=== PATIENT | male | born 1960 | race African-American/Black ===

== ENCOUNTER 2016-09-08 10:59 | Emergency (ER) | payer OTHER ==
[2016-09-08 11:35] VITALS: BMI 20.5
--- NOTE | 2016-09-08 12:25 | PDOC ---
History of Present Illness - General Chief Complaint: Pain Stated Complaint: LOWER BACK PAIN Time Seen by Provider: 09/08/16 12:07 History Source: Patient Exam Limitations: No Limitations - History of Present Illness Initial Comments: CHIEF COMPLAINT: 56 y/o afebrile male with PMH ESRD on HD (/), HTN, COPD , MRSA enocarditis s/p biologic MVR/AVR, liver disease with recurrent ascites, untreated Hep C, chronic systolic and diastolic HF c/o lower back pain for the past 2 days. HISTORY OF PRESENT ILLNESS: The patient states that he woke up 2 days ago with low back pain. He denies fall, trauma to back, f/c, n/v/d, CP, SOB, abd pain, hematuria, dysuria. The patient is on home O2 and is requesting O2 while in the ER. Vital signs on arrival are within normal limits. REVIEW OF SYSTEMS: GENERAL/CONSTITUTIONAL: No fever/chills. No weakness. No weight change. HEAD, EYES, EARS, NOSE AND THROAT: No change in vision. No ear pain or discharge. No sore throat. CARDIOVASCULAR: No chest pain or shortness of breath. RESPIRATORY: No cough, wheezing, or hemoptysis. GASTROINTESTINAL: No abd pain, nausea, vomiting, diarrhea. GENITOURINARY: No dysuria, frequency, or change in urination. MUSCULOSKELETAL: No joint or muscle swelling or pain. No neck pain. +low back pain. SKIN: No rash or easy bruising. NEUROLOGIC: No headache, vertigo, loss of consciousness, or loss of sensation. PHYSICAL EXAM: GENERAL: The patient is awake, alert, and fully oriented, in no acute distress. HEAD: Normal with no signs of trauma. ENT: Pupils equal, round and reactive to light, extraocular movements intact, sclera anicteric, conjunctiva clear. Neck supple. LUNGS: Clear to auscultation bilaterally. Normal excursion. No respiratory distress or use of accessory muscles. CV: RRR, S1/S2, no MRG. Cap refill < 2 sec. ABDOMEN: Soft, non-distended, non-tender even to deep palpation, no hepatomegaly or splenomegaly, no masses. BACK: No midline lumbar or thoracic spine TTP. +TTP of right lumbar paravertebral muscles. EXTREMITIES: Normal range of motion, no edema. NEUROLOGICAL: Normal speech, normal gait. CN II-XII grossly intact. PSYCH: Normal mood, normal affect. SKIN: Warm, dry, normal turgor, no rashes or lesions noted. Past History - Past Medical History Allergies/Adverse Reactions: Allergies Allergy/AdvReac Type Severity Reaction Status Date / Time No Known Drug Allergies Allergy Verified 09/08/16 11:35 Home Medications: Ambulatory Orders Tamsulosin HCl 0.4 mg PO DAILY 03/21/15 Calcium Acetate [Phoslo -] 667 mg PO TIDCM 09/19/15 Folic Acid 1 mg PO DAILY 09/19/15 Multivitamin [Poly-Vitamin] 1 tab PO DAILY 09/19/15 Nifedipine [Procardia Xl] 60 mg PO BID 09/19/15 Sevelamer Carbonate [Renvela -] 800 mg NR TID 09/19/15 Cinacalcet HCl [Sensipar -] 60 mg PO DAILY #30 tab 09/22/15 Isosorbide Mononitrate [Imdur -] 30 mg PO DAILY #30 tab.sr.24h 09/22/15 Losartan Potassium 50 mg PO DAILY #0 10/14/15 Hydralazine HCl [Apresoline -] 50 mg PO TID #90 tablet 07/08/16 Ketoconozole 2% Cream [Nizoral 2% Cream -] 1 applic TP DAILY #1 tube 07/08/16 Pantoprazole Sodium [Protonix -] 40 mg PO DAILY #30 tablet.ec 07/08/16 Oxycodone HCl/Acetaminophen [Percocet 10-325 mg Tablet] 1 each PO TID PRN #30 tablet MDD 3 07/16/16 Oxycodone HCl/Acetaminophen [Percocet 10-325 mg Tablet] 1 each PO TID PRN #80 tablet MDD 3 08/13/16 Cyclobenzaprine HCl [Flexeril -] 10 mg PO TID PRN #90 tablet MDD 3 08/14/16 Oxycodone HCl/Acetaminophen [Percocet 5-325 mg Tablet] 1 tab PO TID #6 tablet MDD 3 09/08/16 Anemia: Yes Asthma: Yes Cancer: No Cardiac Disorders: No CVA: No COPD: No CHF: No Dementia: No Diabetes: No Dialysis: Yes () GI Disorders: No Disorders: Yes (ENLARGED PROSTATE) HTN: Yes Hypercholesterolemia: Yes Liver Disease: No Suicide Attempt (Hx): No Seizures: No Thyroid Disease: No - Surgical History Abdominal Surgery: No Appendectomy: No Cardiac Surgery: Yes (2 VALVES REPLACED 04/2015) Cholecystectomy: No Lung Surgery: Yes (h/o MRSA pleural tissue) - Immunization History Immunization Up to Date: No - Psycho/Social/Smoking Cessation Hx Anxiety: Yes Suicidal Ideation: No Smoking Status: Yes Smoking History: Current every day smoker Have you smoked in the past 12 months: Yes Number of Cigarettes Smoked Daily: 3 Information on smoking cessation initiated: No 'Breaking Loose' booklet given: 07/03/16 Hx Alcohol Use: No Drug/Substance Use Hx: Yes Substance Use Type: Cocaine, Marijuana Hx Substance Use Treatment: Yes (rehab, detox) *Physical Exam - Vital Signs Last Vital Signs Temp Pulse Resp BP Pulse Ox 99.1 F 95 H 18 136/77 97 09/08/16 11:29 09/08/16 11:29 09/08/16 11:29 09/08/16 11:29 09/08/16 11:29 Medical Decision Making - Medical Decision Making A/P: 56 y/o male with LBP for the past 2 days. plan is as follows: 1. O2 via nasal canula 2. PO Percocet The patient states he feels much better. Will discharge to home with rx for #6 percocet. Suggested he take if absolutely needed for pain and f/u with his pcp within 1 week. Instructed him to return to the ER with any worsening or concerning symptoms. The patient verbalizes understanding of all instructions, has no further questions and is awaiting discharge. *DC/Admit/Observation/Transfer Diagnosis at time of Disposition: Low back pain Qualifiers: Chronicity: acute Back pain laterality: right Sciatica presence: without sciatica Qualified Code(s): M54.5 - Low back pain - Discharge Dispostion Disposition: HOME Condition at time of disposition: Improved - Referrals Referrals: Johanna Gann MD [Primary Care Provider] - Call tomorrow - Patient Instructions Printed Discharge Instructions: DI for Low Back Pain Additional Instructions: Discharge Instructions: -Take medication as prescribed for pain if needed; may cause drowsiness -Follow up with your doctor this week -Return to the ER with any worsening or concerning symptoms
[2016-09-08] MEDS ORDERED: ACETAMINOPHEN 325 MG TABLET (FP) PO ONE (12:35)
[2016-09-08] MEDS ORDERED: OXYCODONE/APAP 5/325MG COMBO TABLET PO ONE (12:36)
[2016-09-08] MEDS ORDERED: OXYCODONE/APAP 5/325MG COMBO TABLET ONE (12:41)
[2016-09-08 14:53] VITALS: BP 124/70; PULSE 87; TEMP 98.3
== END 2016-09-08 14:53 | disposition home or self-care (01) ==
LOC: JER 10:59
DX: M54.5 Low back pain (principal); I13.2 Hypertensive heart and chronic kidney disease with heart failure and with stage 5 chronic kidney disease, or end stage renal disease; N18.6 End stage renal disease; I50.42 Chronic combined systolic (congestive) and diastolic (congestive) heart failure; N17.8 Other acute kidney failure; Z99.2 Dependence on renal dialysis; B18.2 Chronic viral hepatitis C; Z95.4 Presence of other heart-valve replacement; E78.00 Pure hypercholesterolemia, unspecified; D64.9 Anemia, unspecified; J45.909 Unspecified asthma, uncomplicated
CPT/HCPCS: 99283-25

== ENCOUNTER 2016-09-11 11:12 | Observation (INO) | payer OTHER ==
--- NOTE | 2016-09-11 12:27 | PDOC ---
History of Present Illness - General Chief Complaint: Shortness of Breath Stated Complaint: Shortness of Breath Time Seen by Provider: 09/11/16 11:29 History Source: Patient Exam Limitations: No Limitations - History of Present Illness Initial Comments: 09/11/16 12:08 56-year-old male presents to the ED with worsening shortness of breath since yesterday. Patient states has home oxygen at home which was not improving his symptoms so decided to call EMS for further evaluation. Patient states was here recently and was discharged home for the same a few days ago. Patient states receives dialysis Thursday and Thursday but did not call today to to shortness of breath. Patient states also been having low back pain worsened with movement over the past week. Patient denies calf tenderness, lower extremity edema, orthopnea, chest pain, fever, cough, or palpitations. patient does state history of anemia, hepatitis, endocarditis, BPH, hypertension, dyslipidemia, and asthma. Timing/Duration: reports: getting worse Severity: reports: moderate Possible Cause: Yes: occasional episodes Modifying Factors: improves with: activity Associated Symptoms: reports: shortness of breath. denies: fever/chills, headache, sore throat Past History - Past Medical History Allergies/Adverse Reactions: Allergies Allergy/AdvReac Type Severity Reaction Status Date / Time No Known Drug Allergies Allergy Verified 09/08/16 11:35 Home Medications: Ambulatory Orders Calcium Acetate 667 mg PO TID 09/11/16 Cinacalcet HCl [Sensipar] 30 mg PO DAILY 09/11/16 Folic Acid 1 mg PO DAILY 09/11/16 Gabapentin 100 mg PO DAILY 09/11/16 Hydralazine HCl 100 mg PO TID 09/11/16 Labetalol HCl [Normodyne -] 200 mg PO BID 09/11/16 Nifedipine [Nifedical Xl] 60 mg PO HS 09/11/16 Oxycodone HCl/Acetaminophen [Percocet 10-325 mg Tablet] 1 each PO Q4H 09/11/16 Sevelamer Carbonate [Renvela] 800 mg PO DAILY 09/11/16 Tamsulosin HCl [Flomax] 0.4 mg PO DAILY 09/11/16 Anemia: Yes Asthma: Yes Cancer: No Cardiac Disorders: No CVA: No COPD: No CHF: No Dementia: No Diabetes: No Dialysis: Yes ([facility]) GI Disorders: No Disorders: Yes (ENLARGED PROSTATE) HTN: Yes Hypercholesterolemia: Yes Liver Disease: No Suicide Attempt (Hx): No Seizures: No Thyroid Disease: No - Surgical History Abdominal Surgery: No Appendectomy: No Cardiac Surgery: Yes (2 VALVES REPLACED 04/2015) Cholecystectomy: No Lung Surgery: Yes (h/o MRSA pleural tissue) - Immunization History Immunization Up to Date: No - Psycho/Social/Smoking Cessation Hx Anxiety: Yes Suicidal Ideation: No Smoking Status: Yes Smoking History: Current every day smoker Have you smoked in the past 12 months: Yes Number of Cigarettes Smoked Daily: 2 Information on smoking cessation initiated: No 'Breaking Loose' booklet given: 07/03/16 Hx Alcohol Use: No Drug/Substance Use Hx: No Substance Use Type: Cocaine, Marijuana Hx Substance Use Treatment: Yes (rehab, detox) Patient Lives Alone: No Lives with/in: spouse/SO Review of Systems - Review of Systems Able to Perform ROS?: Yes Constitutional: No: Symptoms Reported HEENTM: No: Symptoms Reported Respiratory: Yes: Shortness of Breath. No: Cough, Wheezing, Hemoptysis Cardiac (ROS): No: Symptoms Reported ABD/GI: No: Symptoms Reported : No: Symptoms Reported Musculoskeletal: Yes: Back Pain (chronic) Integumentary: No: Symptoms Reported Neurological: No: Symptoms reported Endocrine: No: Symptoms Reported Hematologic/Lymphatic: No: Symptoms Reported *Physical Exam - Vital Signs Last Vital Signs Temp Pulse Resp BP Pulse Ox 98.1 F 87 21 120/70 74 L 09/11/16 11:15 09/11/16 11:15 09/11/16 11:15 09/11/16 11:15 09/11/16 11:15 - Physical Exam General Appearance: Yes: Nourished, Appropriately Dressed. No: Apparent Distress HEENT: positive: EOMI, HERLINDA. negative: Pale Conjunctivae Neck: positive: Supple Respiratory/Chest: positive: Lungs Clear, Normal Breath Sounds. negative: Respiratory Distress, Accessory Muscle Use Cardiovascular: positive: Regular Rhythm, Regular Rate. negative: Murmur Vascular Pulses: Dorsalis-Pedis (R): 2+, Doralis-Pedis (L): 2+ Gastrointestinal/Abdominal: positive: Soft. negative: Tenderness Musculoskeletal: negative: CVA Tenderness Extremity: positive: Normal Capillary Refill, Pedal Edema (1+) Integumentary: positive: Normal Color, Warm, Moist Neurologic: positive: Motor Strength 5/5 (moving all extremeties actively) ED Treatment Course - LABORATORY CBC & Chemistry Diagram: 09/11/16 12:20 09/11/16 12:20 - RADIOLOGY Radiology Studies Ordered: Category Date Time Status CHEST X-RAY PORTABLE* [RAD] Stat Radiology 09/11/16 12:09 Ordered Medical Decision Making - Medical Decision Making 09/11/16 12:52 Patient with end Stage renal disease, anemia and asthma presents with increasing shortness of breath without cough, fever, or chest pain. Patient did receive dialysis today and was sent he came to the ER and is also stating he has had low back pain with no relief. Selected Entries 09/11/16 11:15 Pulse Rate 88 Oxygen Flow 4 Rate Selected Entries 09/11/16 11:15 O2 Sat by Pulse 100 Oximetry (%) Oxygen Flow 4 Rate 09/11/16 15:10 Laboratory Tests 06/14/16 07/03/16 07/06/16 11:45 12:00 06:45 WBC Hgb 7.8 L D Hct Neutrophils % D-Dimer ABG pH ABG pCO2 at Pt Temp ABG pO2 at Pt Temp ABG HCO3 ABG O2 Sat (Measured) Sodium Potassium Chloride Carbon Dioxide Anion Gap BUN Creatinine Creat Clearance w eGFR Random Glucose Lactic Acid Calcium Total Bilirubin AST ALT Alkaline Phosphatase Creatine Kinase Creatine Kinase Index CK-MB (CK-2) Troponin I 0.11 H 0.05 H D B-Natriuretic Peptide Total Protein Albumin 07/07/16 07/08/16 09/11/16 06:35 10:15 12:20 WBC 6.0 Hgb 7.5 L 7.7 L 7.8 L Hct 24.7 L Neutrophils % 78.0 D-Dimer ABG pH ABG pCO2 at Pt Temp ABG pO2 at Pt Temp ABG HCO3 ABG O2 Sat (Measured) Sodium Potassium Chloride Carbon Dioxide Anion Gap BUN Creatinine Creat Clearance w eGFR Random Glucose Lactic Acid Calcium Total Bilirubin AST ALT Alkaline Phosphatase Creatine Kinase Creatine Kinase Index CK-MB (CK-2) Troponin I B-Natriuretic Peptide Total Protein Albumin 09/11/16 09/11/16 09/11/16 12:20 12:20 13:30 WBC Hgb Hct Neutrophils % D-Dimer 269 H ABG pH ABG pCO2 at Pt Temp ABG pO2 at Pt Temp ABG HCO3 ABG O2 Sat (Measured) Sodium 139 Potassium 3.7 D Chloride 101 Carbon Dioxide 29 Anion Gap 9 BUN 28 H Creatinine 5.3 H D Creat Clearance w eGFR 11.36 Random Glucose 116 H D Lactic Acid 1.128 Calcium 7.9 L Total Bilirubin 0.4 AST 28 D ALT 21 D Alkaline Phosphatase 131 H Creatine Kinase 341 H D Creatine Kinase Index 1.0 CK-MB (CK-2) 3.417 Troponin I 0.06 H B-Natriuretic Peptide 16430.69 H Total Protein 6.7 Albumin 2.1 L 09/11/16 14:55 WBC Hgb Hct Neutrophils % D-Dimer ABG pH 7.49 H ABG pCO2 at Pt Temp 34.9 L ABG pO2 at Pt Temp 53.8 L D ABG HCO3 26.5 H ABG O2 Sat (Measured) 87.8 L Sodium Potassium Chloride Carbon Dioxide Anion Gap BUN Creatinine Creat Clearance w eGFR Random Glucose Lactic Acid Calcium Total Bilirubin AST ALT Alkaline Phosphatase Creatine Kinase Creatine Kinase Index CK-MB (CK-2) Troponin I B-Natriuretic Peptide Total Protein Albumin Chest x-ray shows cardiomegaly which is increased compared to previous study noted June 2068 bilateral pleural effusions and congestive changes are noted. There is somewhat focal left base density is of infiltrate. Patient will be ordered for 40 mg of Lasix IV. Patient's H&H is at baseline and in regards to the elevated troponin that may be related to demand versus an actual ischemic event 09/11/16 15:[address] Hood Hospitalist and accepted to service. He will consult nephrology, Dr. Mendenhall for dialysis *DC/Admit/Observation/Transfer Diagnosis at time of Disposition: Hypoxia, ESRD on hemodialysis, Low hemoglobin and low hematocrit Low back pain Qualifiers: Chronicity: acute Back pain laterality: bilateral Sciatica presence: without sciatica Qualified Code(s): M54.5 - Low back pain CHF (congestive heart failure), NYHA class II Qualifiers: Congestive heart failure type: unspecified congestive heart failure type Qualified Code(s): I50.9 - Heart failure, unspecified - Discharge Dispostion Admit: Yes
[2016-09-11 12:32] LABS: BASOPHIL 1.1 % (0-2.0); EOSINOPHIL 5.7 % (0-4.5); MCH 29.5 pg (25.7-33.7); MCHC 31.5 g/dl (32.0-35.9); MEAN CELL VOLUME 93.5 fl (80-96); PLATELET COUNT 243 K/MM3 (134-434); RDW 17.1 % (11.9-15.9)
[2016-09-11 13:05] LABS: ALBUMIN 2.1 g/dl (3.4-5.0); CALCIUM 7.9 mg/dL (8.5-10.1)
[2016-09-11 13:23] LABS: BILIRUBIN,TOTAL 0.4 mg/dL (0.2-1.0); CREATININE 5.3 mg/dL (0.7-1.3); TOT PROT 6.7 g/dl (6.4-8.2); TROPONIN I 0.06 ng/ml (0.00-0.05)
[2016-09-11 14:25] LABS: INR 1.36 (0.82-1.09); PROTHROMBIN TIME (PATIENT) 15.1 SEC (9.98-11.88)
[2016-09-11 14:57] LABS: ARTERIAL BLD GAS O2 SATURATION 87.8 % (90-98.9); ARTERIAL BLOOD GAS BASE EXCESS 3.4 meq/l (-2-2); ARTERIAL BLOOD GAS HCO3 26.5 meq/L (22-26); ARTERIAL BLOOD GAS PO2 53.8 mmHg (80-100); ARTERIAL BLOOD GAS pH 7.49 (7.35-7.45); METHEMOGLOBIN 1.4 % (0.4-1.5)
[2016-09-11 14:58] LABS: ALLENS TEST POSITIVE; ART PUNCT SITE RIGHT RADIAL; LPM/O2% 3.5L; PT. ON O2? YES; TYPE OF O2 NASAL
[2016-09-11] MEDS ORDERED: FUROSEMIDE 40 MG/4 ML INJECTABLE VIAL IVPUSH ONE (15:14)
--- NOTE | 2016-09-11 16:46 | PDOC ---
*Physical Exam - Vital Signs Last Vital Signs Temp Pulse Resp BP Pulse Ox 98.1 F 88 21 120/70 100 09/11/16 11:15 09/11/16 11:15 09/11/16 11:15 09/11/16 11:15 09/11/16 11:15 ED Treatment Course - LABORATORY CBC & Chemistry Diagram: 09/12/16 05:35 09/12/16 05:35 - ADDITIONAL ORDERS Additional order review: Laboratory Results 09/11/16 09/11/16 09/11/16 14:55 13:30 12:20 INR D-Dimer Puncture Site Right radial ABG pH 7.49 H ABG pCO2 at Pt Temp 34.9 L ABG pO2 at Pt Temp 53.8 L D ABG HCO3 26.5 H ABG O2 Sat (Measured) 87.8 L ABG O2 Content 8.9 L* ABG Base Excess 3.4 H Ez Test Positive Carboxyhemoglobin 2.3 H Methemoglobin 1.4 O2 Delivery Device Nasal Oxygen Flow Rate 3.5l PEEP 0.0 Sodium Potassium Chloride Carbon Dioxide Anion Gap BUN Creatinine Creat Clearance w eGFR Random Glucose Lactic Acid 1.128 Calcium Total Bilirubin AST ALT Alkaline Phosphatase Creatine Kinase Creatine Kinase Index CK-MB (CK-2) CK-MB (CK-2) Rel Index Cancelled Troponin I B-Natriuretic Peptide Total Protein Albumin Blood Type Antibody Screen 09/11/16 09/11/16 09/11/16 12:20 12:20 12:20 INR 1.36 H D-Dimer 269 H Puncture Site ABG pH ABG pCO2 at Pt Temp ABG pO2 at Pt Temp ABG HCO3 ABG O2 Sat (Measured) ABG O2 Content ABG Base Excess Ez Test Carboxyhemoglobin Methemoglobin O2 Delivery Device Oxygen Flow Rate PEEP Sodium 139 Potassium 3.7 D Chloride 101 Carbon Dioxide 29 Anion Gap 9 BUN 28 H Creatinine 5.3 H D Creat Clearance w eGFR 11.36 Random Glucose 116 H D Lactic Acid Calcium 7.9 L Total Bilirubin 0.4 AST 28 D ALT 21 D Alkaline Phosphatase 131 H Creatine Kinase 341 H D Creatine Kinase Index 1.0 CK-MB (CK-2) 3.417 CK-MB (CK-2) Rel Index Troponin I 0.06 H B-Natriuretic Peptide 13299.69 H Total Protein 6.7 Albumin 2.1 L Blood Type O POSITIVE Antibody Screen Negative 09/11/16 12:20 RBC 2.64 L MCV 93.5 MCHC 31.5 L RDW 17.1 H MPV 9.0 Neutrophils % 78.0 Lymphocytes % 6.6 L D Monocytes % 8.6 Eosinophils % 5.7 H Basophils % 1.1 - Medications Given in the ED: ED Medications Discontinued Medications Generic Name Dose Route Start Last Admin Trade Name Michaelq PRN Reason Stop Dose Admin Furosemide 40 mg 09/11/16 15:14 09/11/16 16:41 Lasix Injection - IVPUSH 09/11/16 15:15 40 mg ONCE ONE Administration Medical Decision Making - Medical Decision Making 09/11/16 16:45 Pt seen by Midlevel Provider under my direct supervision Ancillary studies reviewed I agree with plan as outlined by Midlevel Provider *DC/Admit/Observation/Transfer Diagnosis at time of Disposition: Hypoxia, ESRD on hemodialysis, Low hemoglobin and low hematocrit Low back pain Qualifiers: Chronicity: acute Back pain laterality: bilateral Sciatica presence: without sciatica Qualified Code(s): M54.5 - Low back pain CHF (congestive heart failure), NYHA class II Qualifiers: Congestive heart failure type: unspecified congestive heart failure type Qualified Code(s): I50.9 - Heart failure, unspecified
[2016-09-11] MEDS ORDERED: ACETAMINOPHEN 325 MG TABLET (FP) ONE (16:58)
[2016-09-11] MEDS: ACETAMINOPHEN 325 MG TABLET (FP) PO PRN ×2 (17:07→22:04)
[2016-09-11] MEDS ORDERED: FUROSEMIDE 40 MG/4 ML INJECTABLE VIAL ONE (17:10)
--- NOTE | 2016-09-11 17:15 | HP ---
CHIEF COMPLAINT: I have back pain PCP: Dr. Garza Asian Art Curator: Dr. Elvira Jauregui Human Resources Compliance Manager: Dr. San HISTORY OF PRESENT ILLNESS: 56 yo M with h/o ESRD on HD (Thu/, last HD was today), HTN, COPD, MRSA endocarditis s/p biologic MVR/AVR, severe PHTN, polysubstance abuse, liver disease with recurrent ascites, untreated Hep C, and chronic systolic and diastolic heart failure presented to the ED with worsening chronic lower back pain x 2 days. Patient was seen in the ED 3 days ago for the same reason and was discharged home on percocet. Today, he complains of same pain that is located on his L inferolateral back, non-radiating, "13 out 10" in severity, stabbing like, not relieved by tynelol or NSAIDs, lying on his R makes the pain slightly better. He stated he's been short of breath because it hurts when taking deep breaths, and any positional movement would aggravate the pain. He's taking gabapentin and oxycodone at home but he's never diagnosed with neuropathy. Patient denies focal weakness, numbness/tingling in all extremities , bowel or urinary incontinence, fever, chills, n/v, chest pain, trauma. ER course was notable for: (1) lab values are at baseline (2) CXR not worsening compared to prior (3) Recent Travel: None PAST MEDICAL HISTORY: ESRD on HD (Thu/Thu/Thu), HTN, COPD, MRSA endocarditis s/p biologic MVR/AVR, severe PHTN, polysubstance abuse, liver disease with recurrent ascites, untreated Hep C, and chronic systolic and diastolic heart failure PAST SURGICAL HISTORY: Inguinal hernia repair, umbilical hernia repair, MVR, AVR Social History: Smokin-4 cigarettes daily Alcohol: Denies (previous on detox) Drugs: cocaine and marijuana Family History: Allergies No Known Drug Allergies Allergy (Verified 09/08/16 11:35) HOME MEDICATIONS: Medication Instructions Recorded Calcium Acetate 667 mg PO TID 09/11/16 Cinacalcet HCl [Sensipar] 30 mg PO DAILY 09/11/16 Folic Acid 1 mg PO DAILY 09/11/16 Gabapentin 100 mg PO DAILY 09/11/16 Hydralazine HCl 100 mg PO TID 09/11/16 Labetalol HCl [Normodyne -] 200 mg PO BID 09/11/16 Nifedipine [Nifedical Xl] 60 mg PO HS 09/11/16 Oxycodone HCl/Acetaminophen 1 each PO Q4H 09/11/16 [Percocet 10-325 mg Tablet] Sevelamer Carbonate [Renvela] 800 mg PO DAILY 09/11/16 Tamsulosin HCl [Flomax] 0.4 mg PO DAILY 09/11/16 REVIEW OF SYSTEMS CONSTITUTIONAL: Absent: fever, chills, diaphoresis, generalized weakness, malaise, loss of appetite, weight change HEENT: Absent: rhinorrhea, nasal congestion, throat pain, throat swelling, difficulty swallowing, mouth swelling, ear pain, eye pain, visual changes CARDIOVASCULAR: Absent: chest pain, syncope, palpitations, irregular heart rate, lightheadedness , peripheral edema RESPIRATORY: shortness of breath Absent: cough, dyspnea with exertion, orthopnea, wheezing, stridor, hemoptysis GASTROINTESTINAL: Absent: abdominal pain, abdominal distension, nausea, vomiting, diarrhea, constipation, melena, hematochezia GENITOURINARY: Absent: dysuria, frequency, urgency, hesitancy, hematuria, flank pain, genital pain MUSCULOSKELETAL: back pain Absent: myalgia, arthralgia, joint swelling, neck pain SKIN: Absent: rash, itching, pallor HEMATOLOGIC/IMMUNOLOGIC: Absent: easy bleeding, easy bruising, lymphadenopathy, frequent infections ENDOCRINE: Absent: unexplained weight gain, unexplained weight loss, heat intolerance, cold intolerance NEUROLOGIC: Absent: headache, focal weakness or paresthesias, dizziness, unsteady gait, seizure, mental status changes, bladder or bowel incontinence PSYCHIATRIC: Absent: anxiety, depression, suicidal or homicidal ideation, hallucinations. PHYSICAL EXAMINATION Vital Signs Temperature 98.1 F 09/11/16 11:15 Pulse Rate 88 09/11/16 11:15 Respiratory Rate 21 09/11/16 11:15 Blood Pressure 120/70 09/11/16 11:15 O2 Sat by Pulse Oximetry (%) 100 09/11/16 11:15 GENERAL: Awake, alert, and fully oriented, in pain and mild respiratory distress . HEAD: Normal with no signs of trauma. EYES: Pupils equal, round and reactive to light, extraocular movements intact, sclera anicteric No lid lag. EARS, NOSE, THROAT: Ears normal, nares patent, oropharynx clear without exudates. Moist mucous membranes. NECK: Normal range of motion, supple without lymphadenopathy, JVD, or masses. LUNGS: Breath sounds equal, clear to auscultation bilaterally. No wheezes, and no crackles. No accessory muscle use. HEART: Regular rate and rhythm, normal S1 and S2 without murmur, rub or gallop. ABDOMEN: Soft, diffuse tenderness, not distended, normoactive bowel sounds, no guarding, no rebound, no masses. No hepatomegaly or splenomegaly. MUSCULOSKELETAL: tenderness upon palpation on LL back, limited ROM of the back UPPER EXTREMITIES: 2+ pulses, warm, well-perfused. No cyanosis. No clubbing. Cap refill <2 seconds. L arm AVF with thrill and bruit LOWER EXTREMITIES:no edema PSYCHIATRIC: uncooperative and agitated SKIN: Warm, dry, normal turgor, no rashes or lesions noted. Abnormal Lab Results 09/11/16 09/11/16 09/11/16 12:20 12:20 12:20 RBC 2.64 L Hgb 7.8 L Hct 24.7 L MCHC 31.5 L RDW 17.1 H Lymphocytes % 6.6 L D Eosinophils % 5.7 H INR 1.36 H D-Dimer 269 H ABG pH ABG pCO2 at Pt Temp ABG pO2 at Pt Temp ABG HCO3 ABG O2 Sat (Measured) ABG O2 Content ABG Base Excess Carboxyhemoglobin BUN 28 H Creatinine 5.3 H D Random Glucose 116 H D Calcium 7.9 L Alkaline Phosphatase 131 H Creatine Kinase 341 H D Troponin I 0.06 H B-Natriuretic Peptide 87215.69 H Albumin 2.1 L 09/11/16 14:55 RBC Hgb Hct MCHC RDW Lymphocytes % Eosinophils % INR D-Dimer ABG pH 7.49 H ABG pCO2 at Pt Temp 34.9 L ABG pO2 at Pt Temp 53.8 L D ABG HCO3 26.5 H ABG O2 Sat (Measured) 87.8 L ABG O2 Content 8.9 L* ABG Base Excess 3.4 H Carboxyhemoglobin 2.3 H BUN Creatinine Random Glucose Calcium Alkaline Phosphatase Creatine Kinase Troponin I B-Natriuretic Peptide Albumin Imaging study: CXR: no acute change compared to prior ASSESSMENT/PLAN: 56 yo M admitted to the hospital for dyspnea likely 2/2 uncontrolled lower back pain. Patient's BNP and the rest of lab works are at baseline. His sob is likely due to refractory pain. Less likely CHF exacerbation as his physical exam was unremarkable for signs of systolic or diastolic heart failure. He's also taking oxycodone and gabapentin and he refused to give details on what conditions these meds are for. Dyspea likely 2/2 uncontrolled lower back pain - reproducible - supplemental O2 via NC - percocet for pain - pain management consult ESRD on HD - Thu/Thu/Thu (last HD today) - cont. renvela, sensipar, folic acid, and calcium acetate HTN - cont. labetalol, hydralazine, nifedipine BPH - cont. flomax FEN - No IVF - major lytes are normal - sodium restrict diet Prophylaxis - DVT: heparin - GI: not indicated - deconditioning: early ambulation Dispo: d/c after pain management clears the patient. Visit type - Emergency Visit Emergency Visit: Yes ED Registration Date: 09/11/16 Care time: The patient presented to the Emergency Department on the above date and was hospitalized for further evaluation of their emergent condition. - New Patient This patient is new to me today: Yes Date on this admission: 09/11/16 - Critical Care Critical Care patient: No
--- NOTE | 2016-09-11 17:28 | PN ---
Teaching Attending Note Name of Resident: Panda Arenas ATTENDING PHYSICIAN STATEMENT I saw and evaluated the patient. I reviewed the resident's note and discussed the case with the resident. I agree with the resident's findings and plan as documented. SUBJECTIVE: This is a 56-year-old man with a history of ESRD on HD, HTN, COPD, pulmonary HTN, chronic systolic and diastolic HF, hepatitis C, anemia, MRSA endocarditis, bioprosthetic MV and TV replacements, BPH who comes to the ER complaining of shortness of breath and low back pain. He had been seen in the ER on 09/08 for the same complaints. He was discharged with Percocet. He comes in today complaining of severe low back pain and difficulty taking a deep breath because of the pain. OBJECTIVE: Last Vital Signs Temp Pulse Resp BP Pulse Ox 98.1 F 88 21 120/70 100 09/11/16 11:15 09/11/16 11:15 09/11/16 11:15 09/11/16 11:15 09/11/16 11:15 HEART: S1 S2, RRR LUNGS: Clear ABDOMEN: Soft, (+) mild diffuse tenderness, non-distended, normal BS EXTREMITIES: No edema ASSESSMENT AND PLAN: This is a 56-year-old man with a history of ESRD on HD, HTN, COPD, pulmonary HTN , chronic systolic and diastolic HF, hepatitis C, anemia, MRSA endocarditis, bioprosthetic MV and TV replacements, BPH who presented to the ER with difficulty taking a deep breath because of pain in his back. 1. Shortness of breath secondary to back pain - Place in observation - Pain control 2. Low back pain 3. ESRD on HD - Nephrology consult for HD - Continue Renvela, Sensipar, PhosLo 4. Chronic systolic and diastolic heart failure - Stable 5. Hypertension - Continue Labetalol, Hydralazine, Nifedipine 6. COPD - Stable 7. Pulmonary HTN 8. Anemia secondary to ESRD 9. Hepatitis C 10. History of bioprosthetic MV/TV replacements 11. BPH - Continue Flomax
[2016-09-11] MEDS: HEPARIN NA (PORCINE) 5,000 UNITS/ML 1ML VIAL SQ SCH (18:20)
[2016-09-11] MEDS: CALCIUM ACETATE 667 MG CAPSULE (FP) PO SCH (18:21)
[2016-09-11] MEDS: SEVELAMER CARBONATE 800 MG TAB (FP) PO SCH ×2 (18:22→18:38)
[2016-09-11] MEDS: GABAPENTIN 100 MG CAPSULE (FP) PO SCH ×2 (18:22→18:39)
[2016-09-11] MEDS: CINACALCET HCL 30 MG TAB (FP) PO SCH (18:22)
[2016-09-11] MEDS: FOLIC ACID 1 MG TABLET (FP) PO SCH ×2 (18:26→18:40)
[2016-09-11] MEDS: TAMSULOSIN HCL 0.4 MG CAP.ER.24H (FP) PO SCH (18:38)
[2016-09-11 18:42] VITALS: BMI 19.6
[2016-09-11] MEDS ORDERED: ACETAMINOPHEN 325 MG TABLET (FP) PO PRN (19:18)
[2016-09-11] MEDS ORDERED: LABETALOL HCL 100 MG TABLET (FP) ONE (21:18)
[2016-09-11] MEDS ORDERED: NIFEdipine E.R 60 MG TABLET (UD) PO SCH (22:00)
[2016-09-11] MEDS: hydrALAZINE HCL 50 MG TABLET (FP) PO SCH (22:04)
[2016-09-11] MEDS: LABETALOL HCL 200 MG TABLET (FP) PO SCH (22:04)
[2016-09-11] MEDS: oxyCODONE HCL 5 MG TABLET PO PRN (22:06)
[2016-09-12] MEDS: oxyCODONE HCL 5 MG TABLET PO PRN ×2 (02:28→10:36)
[2016-09-12] MEDS: ACETAMINOPHEN 325 MG TABLET (FP) PO PRN ×2 (02:31→10:38)
[2016-09-12] MEDS: HEPARIN NA (PORCINE) 5,000 UNITS/ML 1ML VIAL SQ SCH ×3 (02:32→10:45)
[2016-09-12] MEDS: hydrALAZINE HCL 50 MG TABLET (FP) PO SCH ×2 (06:18→14:00)
[2016-09-12 06:45] LABS: MAGNESIUM 2.3 mg/dL (1.8-2.4); PHOSPHOROUS 5.9 mg/dL (2.5-4.9)
[2016-09-12 06:50] LABS: MCH 29.2 pg (25.7-33.7); MCHC 31.6 g/dl (32.0-35.9); MEAN CELL VOLUME 92.3 fl (80-96); PLATELET COUNT 223 K/MM3 (134-434); RDW 17.5 % (11.9-15.9); WHITE BLOOD COUNT 5.3 K/mm3 (4.0-10.0)
[2016-09-12] MEDS: SEVELAMER CARBONATE 800 MG TAB (FP) PO SCH (08:30)
[2016-09-12] MEDS ORDERED: LABETALOL HCL 100 MG TABLET (FP) ONE (10:15)
[2016-09-12] MEDS: CALCIUM ACETATE 667 MG CAPSULE (FP) PO SCH ×2 (10:34→12:41)
[2016-09-12] MEDS: GABAPENTIN 100 MG CAPSULE (FP) PO SCH (10:35)
[2016-09-12] MEDS: FOLIC ACID 1 MG TABLET (FP) PO SCH (10:35)
[2016-09-12] MEDS: TAMSULOSIN HCL 0.4 MG CAP.ER.24H (FP) PO SCH (10:35)
[2016-09-12] MEDS: LABETALOL HCL 200 MG TABLET (FP) PO SCH (10:36)
[2016-09-12] MEDS: CINACALCET HCL 30 MG TAB (FP) PO SCH (10:36)
[2016-09-12 10:57] VITALS: PULSE 74
--- NOTE | 2016-09-12 11:15 | PN ---
Physical Exam: SUBJECTIVE: Patient seen and examined at bedside. No acute events overnight, breathing cont. to improv. Denies chest pain, fever, chills, n/v, dysuria. OBJECTIVE: Vital Signs Period Temp Pulse Resp BP Sys/Anderson Pulse Ox Last 24 Hr 97.3 F-98.8 F 63-85 20-22 93-134/54-74 90 GENERAL: The patient is awake, alert, and fully oriented, in no acute distress. HEAD: Normal with no signs of trauma. EYES: PERRL, extraocular movements intact, sclera anicteric, conjunctiva clear. No ptosis. ENT: Ears normal, nares patent, oropharynx clear without exudates, moist mucous membranes. NECK: Trachea midline, full range of motion, supple. LUNGS: Breath sounds equal, clear to auscultation bilaterally, no wheezes, no crackles, no accessory muscle use. HEART: Regular rate and rhythm, S1, S2 without murmur, rub or gallop. ABDOMEN: Soft, nontender, nondistended, normoactive bowel sounds, no guarding, no rebound, no hepatosplenomegaly, no masses. EXTREMITIES: 2+ pulses, warm, well-perfused, no edema. NEUROLOGICAL: Cranial nerves II through XII grossly intact. Normal speech, gait not observed. PSYCH: Normal mood, normal affect. SKIN: Warm, dry, normal turgor, no rashes or lesions noted Laboratory Results - last 24 hr 09/11/16 09/12/16 09/12/16 18:45 01:00 05:35 WBC 5.3 RBC 2.51 L Hgb 7.3 L Hct 23.2 L MCV 92.3 MCHC 31.6 L RDW 17.5 H Plt Count 223 MPV 9.0 Sodium Potassium Chloride Carbon Dioxide Anion Gap BUN Creatinine Random Glucose Calcium Phosphorus Magnesium Troponin I 0.06 H 0.06 H 09/12/16 05:35 WBC RBC Hgb Hct MCV MCHC RDW Plt Count MPV Sodium 139 Potassium 5.1 D Chloride 102 Carbon Dioxide 28 Anion Gap 9 BUN 46 H D Creatinine 7.0 H D Random Glucose 96 Calcium 8.0 L Phosphorus 5.9 H Magnesium 2.3 Troponin I Active Medications Generic Name Dose Route Start Last Admin Trade Name Freq PRN Reason Stop Dose Admin Acetaminophen 650 mg 09/11/16 15:29 09/12/16 10:38 Tylenol - PO 650 mg Q4H PRN Administration FEVER OR PAIN Acetaminophen 325 mg 09/11/16 19:18 Tylenol - PO Q4H PRN Calcium Acetate 667 mg 09/11/16 17:30 09/12/16 10:34 Phoslo - PO Not Given TIDCM MONAE Cinacalcet 30 mg 09/11/16 17:15 09/12/16 10:36 Sensipar - PO 30 mg DAILY MONAE Administration Folic Acid 1 mg 09/11/16 17:15 09/12/16 10:35 Folic Acid - PO 1 mg DAILY MONAE Administration Gabapentin 100 mg 09/11/16 17:15 09/12/16 10:35 Neurontin - PO 100 mg DAILY MONAE Administration Heparin Sodium (Porcine) 5,000 unit 09/11/16 18:00 09/12/16 10:45 Heparin - SQ Not Given Q8H-IV MONAE Hydralazine HCl 100 mg 09/11/16 22:00 09/12/16 06:18 Apresoline - PO Not Given TID MONAE Labetalol HCl 200 mg 09/11/16 22:00 09/12/16 10:36 Normodyne - PO Not Given BID MONAE Nifedipine 60 mg 09/11/16 22:00 09/11/16 22:04 Procardia Xl - PO 60 mg HS MONAE Administration Oxycodone HCl 10 mg 09/11/16 19:18 09/12/16 10:36 Roxicodone - PO 10 mg Q4H PRN Administration Sevelamer Carbonate 800 mg 09/11/16 17:15 09/12/16 08:30 Renvela - PO 800 mg DAILY@0800 MONAE Administration Tamsulosin HCl 0.4 mg 09/11/16 17:15 09/12/16 10:35 Flomax - PO 0.4 mg DAILY MONAE Administration ASSESSMENT/PLAN:
--- NOTE | 2016-09-12 13:46 | PN ---
Teaching Attending Note Name of Resident: Panda Arenas ATTENDING PHYSICIAN STATEMENT I saw and evaluated the patient. I reviewed the resident's note and discussed the case with the resident. I agree with the resident's findings and plan as documented. SUBJECTIVE: seen and evaluated at the bedside OBJECTIVE: tenderness on ribs over left flank ASSESSMENT AND PLAN: 56 yo M with h/o ESRD on HD (Thu/Thu/Thu, last HD was today), HTN, COPD, MRSA endocarditis s/p biologic MVR/AVR, severe PHTN, polysubstance abuse, liver disease with recurrent ascites, untreated Hep C, and chronic systolic and diastolic heart failure admitted for left flank pain -pt states that the pain started after he had severe coughing for 1 week for which he was treated with Abx for community acquired pneumonia -Rib xray shows old fractures of 3 ribs on that side -pt likely aggravated this area with severe coughing -will discharge home; 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
[2016-09-12 14:32] VITALS: BP 100/65; TEMP 97.9
--- NOTE | 2016-09-12 15:58 | CONSULT ---
Consult Consult Specialty:: Neurology Reason for Consultation:: back pain chronic on chronic opioid analgesics with a hx of polysubstance abuse noted in the medical record - History of Present Illness History of Present Illness: 56 yo uncooperative with interview insisting his hospitalization has prevented him from seeing his "pain management" doctor and he insisting I give him a prescription. Re-oriented the patient I am the neurologist called to evaluate. He denies any neurological symptoms including motor weakness, sensory symptoms or speech difficulties. He has been treated and previously evaluated for back pain with established outpatient care. - Past Medical History Cardio/Vascular: Yes: CHF (Chronic diastolic HF, Severe Pulm HTN), HTN, Hyperlipdemia, Mitral Insufficiency (s/p MVR (bio)), Pulmonary Hypertension, Other (Severe Tricuspid regurgitation) Pulmonary: Yes: Other (PHTN) Gastrointestinal: Yes: Ascites, Constipation Renal/: Yes: Renal Failure, Hemodialysis Musculoskeletal: Yes: Bursitis (left shoulder pain) - Past Surgical History Past Surgical History: Yes: AV Fistula/Graft, Hernia Repair (11/19) - Alcohol/Substance Use Hx Alcohol Use: No History of Substance Use: reports: Cocaine (last use 2 weeks ago), Marijuana - Smoking History Smoking history: Current every day smoker Have you smoked in the past 12 months: Yes Aproximately how many cigarettes per day: 2 - Social History ADL: Independent 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 History of Recent Travel: No Home Medications - Allergies Allergies/Adverse Reactions: Allergies Allergy/AdvReac Type Severity Reaction Status Date / Time No Known Drug Allergies Allergy Verified 09/08/16 11:35 - Home Medications Home Medications: Ambulatory Orders Calcium Acetate 667 mg PO TID 09/11/16 Cinacalcet HCl [Sensipar] 30 mg PO DAILY 09/11/16 Folic Acid 1 mg PO DAILY 09/11/16 Gabapentin 100 mg PO DAILY 09/11/16 Hydralazine HCl 100 mg PO TID 09/11/16 Nifedipine [Nifedical Xl] 60 mg PO HS 09/11/16 Oxycodone HCl/Acetaminophen [Percocet 10-325 mg Tablet] 1 each PO Q4H 09/11/16 Sevelamer Carbonate [Renvela -] 800 mg PO DAILY 09/11/16 Tamsulosin HCl [Flomax -] 0.4 mg PO DAILY 09/11/16 Oxycodone HCl/Acetaminophen [Percocet 10-325 mg Tablet] 1 each PO Q6H #30 tablet MDD 4 09/12/16 Family Disease History - Family Disease History Family Disease History: Other: Father ( of kidney failure), Mother (muscle problems), Sister (healthy and living, HTN) Physical Exam Vital Signs: Vital Signs Temperature 97.9 F 09/12/16 14:00 Pulse Rate 74 09/12/16 14:00 Respiratory Rate 20 09/12/16 14:00 Blood Pressure 100/65 09/12/16 14:00 O2 Sat by Pulse Oximetry (%) 90 L 09/11/16 18:30 Constitutional: Yes: No Distress, Other (agitated demanding prescription for "pain meds") HENT: Yes: Atraumatic Neurological: Yes: Alert, Oriented, Cran Nerves II-XII Intact. No: Aphasia, Dysarthria, Loss of Sensation, Weakness Labs: CBC, BMP 09/12/16 05:35 09/12/16 05:35 Assessment/Plan Chronic back pain with established outpatient care by pain management with patient exhibiting drug seeking behavior with hx of polysubstance abuse. Will defer to his established outpatient physician for ongoing evaluation and treatment of chronic pain complaints to avoid prescription drug misuse The patient is neurologically stable for discharge to the care of his regular physicians.
--- NOTE | 2016-09-12 16:24 | DS ---
Physical Exam: SUBJECTIVE: Patient seen and examined at bedside. Pt c/o constant back pain which is now located in L flank. He does not have any other complaint. Denies fever, chills, n/v, bowel or urinary sx. OBJECTIVE: Vital Signs Period Temp Pulse Resp BP Sys/Anderson Pulse Ox Last 24 Hr 97.3 F-98.8 F 63-85 20-22 93-134/54-74 90-94 PHYSICAL EXAM GENERAL: Awake, alert, and fully oriented, in pain and mild respiratory distress. HEAD: Normal with no signs of trauma. EYES: Pupils equal, round and reactive to light, extraocular movements intact, sclera anicteric No lid lag. EARS, NOSE, THROAT: Ears normal, nares patent, oropharynx clear without exudates. Moist mucous membranes. NECK: Normal range of motion, supple without lymphadenopathy, JVD, or masses. LUNGS: Breath sounds equal, clear to auscultation bilaterally. No wheezes, and no crackles. No accessory muscle use. HEART: Regular rate and rhythm, normal S1 and S2 without murmur, rub or gallop. ABDOMEN: Soft, diffuse tenderness, not distended, normoactive bowel sounds, no guarding, no rebound, no masses. No hepatomegaly or splenomegaly. MUSCULOSKELETAL: tenderness upon palpation on LL back, limited ROM of the back UPPER EXTREMITIES: 2+ pulses, warm, well-perfused. No cyanosis. No clubbing. Cap refill <2 seconds. L arm AVF with thrill and bruit LOWER EXTREMITIES:no edema PSYCHIATRIC: uncooperative and agitated SKIN: Warm, dry, normal turgor, no rashes or lesions noted. LABS Laboratory Results - last 24 hr 09/11/16 09/12/16 09/12/16 18:45 01:00 05:35 WBC 5.3 RBC 2.51 L Hgb 7.3 L Hct 23.2 L MCV 92.3 MCHC 31.6 L RDW 17.5 H Plt Count 223 MPV 9.0 Sodium Potassium Chloride Carbon Dioxide Anion Gap BUN Creatinine Random Glucose Calcium Phosphorus Magnesium Troponin I 0.06 H 0.06 H 09/12/16 05:35 WBC RBC Hgb Hct MCV MCHC RDW Plt Count MPV Sodium 139 Potassium 5.1 D Chloride 102 Carbon Dioxide 28 Anion Gap 9 BUN 46 H D Creatinine 7.0 H D Random Glucose 96 Calcium 8.0 L Phosphorus 5.9 H Magnesium 2.3 Troponin I HOSPITAL COURSE: Date of Admission:09/11/16 56 yo M admitted to the hospital for dyspnea likely 2/2 uncontrolled lower back pain. Patient's BNP and the rest of lab works are at baseline. His sob is likely due to refractory lower back pain. Less likely CHF exacerbation as his physical exam was unremarkable for signs of systolic or diastolic heart failure. X-ray of his L chest showed chronic fractures in 8th to 10th ribs. He was treated with supplemental O2 via NC and percocet for pain. He's in stable condition to be discharged home and cont. medical management and pain management as outpatient with Dr. Tucker and Dr. Austin. Patient was explained that he needs to see Dr. Austin for controlled pain medication as soon as he's discharged. He's prescribed 30 tablets of percocets in between discharge and his next appointment with pain management as outpatient. Date of Discharge: 09/12/16 Minutes to complete discharge: 45 Discharge Summary Reason For Visit: HYPOXIA; END STAGE RENAL DISEASE ON DIALYSIS Current Active Problems Low back pain (Acute) CHF (congestive heart failure), NYHA class II (Chronic) ESRD on hemodialysis (Chronic) Hypoxia (Chronic) Low hemoglobin and low hematocrit (Chronic) Ribs, multiple fractures (Chronic) Condition: Stable - Instructions Diet, Activity, Other Instructions: Instruction for continuing care: You have fractures in your L 8th, 9th and 10th ribs. It will take 4-6 weeks to heal. Please avoid strenuous activities and plenty of rest. Please also continue to follow up with Dr. Tucker and Dr. Austin for termite helper pain management. Referrals: Johanna Gann MD [Primary Care Provider] - Kori Austin NP [Nurse Practitioner] - Disposition: HOME - Home Medications Comprehensive Discharge Medication List: Ambulatory Orders Calcium Acetate 667 mg PO TID 09/11/16 Cinacalcet HCl [Sensipar] 30 mg PO DAILY 09/11/16 Folic Acid 1 mg PO DAILY 09/11/16 Gabapentin 100 mg PO DAILY 09/11/16 Hydralazine HCl 100 mg PO TID 09/11/16 Nifedipine [Nifedical Xl] 60 mg PO HS 09/11/16 Oxycodone HCl/Acetaminophen [Percocet 10-325 mg Tablet] 1 each PO Q4H 09/11/16 Sevelamer Carbonate [Renvela -] 800 mg PO DAILY 09/11/16 Tamsulosin HCl [Flomax -] 0.4 mg PO DAILY 09/11/16 Oxycodone HCl/Acetaminophen [Percocet 10-325 mg Tablet] 1 each PO Q6H #30 tablet MDD 4 09/12/16 This patient is new to me today: No Emergency Visit: No Critical Care patient: No - Discharge Referral Referred to [facility] No
== END 2016-09-12 15:34 | disposition home or self-care (01) ==
LOC: JER 11:12 → JERBED 15:22 → UNDOADMOB 15:22 → INTOOBSV 15:22 → J4S 16:20 → JERBED 17:30 → J4S 17:30
PROVIDERS: ADMIT Internal Medicine; ATTEND Internal Medicine
DX: M54.5 Low back pain (principal); I13.2 Hypertensive heart and chronic kidney disease with heart failure and with stage 5 chronic kidney disease, or end stage renal disease; N18.6 End stage renal disease; I50.42 Chronic combined systolic (congestive) and diastolic (congestive) heart failure; Z99.2 Dependence on renal dialysis; F17.210 Nicotine dependence, cigarettes, uncomplicated; J44.9 Chronic obstructive pulmonary disease, unspecified; I27.2 Other secondary pulmonary hypertension; D63.1 Anemia in chronic kidney disease
CPT/HCPCS: 36415; 36600; 71010-TC; 71101-TC; 80048; 80053; 82375; 82550; 82553; 82803; 83050; 83605; 83735; 83880; 84100; 84484; 85025; 85027; 85379; 85610; 86850; 86900; 86901; 87040; 97116-GP; 97163-GP; 99285-25; G0378; J1644

== ENCOUNTER 2016-12-01 08:09 | Inpatient (IN) | payer OTHER ==
--- NOTE | 2016-12-01 08:31 | PDOC ---
History of Present Illness - General History Source: Patient, Old Records Exam Limitations: No Limitations - History of Present Illness Initial Comments: 12/01/16 08:38 The patient is a 56-year-old man with a significant past medical history of hypertension, hypersholesterolemia, anemia, MRSA endocarditis status post biologic MVR/AVR, severe pulmonary hypertension, end-stage renal disease (on hemodialysis in [place], [place] on ; last HD on Thursday was held), polysubstance abuse, liver disease with recurrent ascites, untreated Hepatitis C and chronic systolic and diastolic heart failure who presents to the emergency department via EMS for further evaluation of chest pain. Patient said that yesterday he was fine and asymptomatic. This morning, he woke up sweaty, hot, nauseous, lightheadedness shortness of breath with associated chest pain with a rated 10/10 and recalls 1 episode of emesis. EMS was activated. En route , patient was noted to be hypotensive and in SVT in the 200s and was given 6 mg IV of Adenosine which improved to 108. Upon ER arrival, patient was given 10 mg IV of Cardizem with noted improvement of his heart rate (to the 100s) and chest pain (rated 7/10). Currently, patient states that he feels weak, with some chest pain and nauseous. Allergies: No Known Drug Allergies Past Surgical History: Inguinal hernia repair. Umbilical hernia repair. MVR. AVR. Social History: Smokes approximately 3-4 cigarettes/day. Previous detox for ETOH abuse. Cocaine and Marijuana use. Primary Care Physician: Dr. Omar Hernandez [phone] Acute Specialist: Dr. Golden San [phone] Evaluation Manager: Dr. Cleveland Mendenhall [phone] <Natasha Lindsey - Last Filed: 12/01/16 12:43> <Marlon Mendenhall - Last Filed: 12/01/16 12:48> - General Chief Complaint: Chest Pain Stated Complaint: CHEST PAIN/WEAKNESS Time Seen by Provider: 12/01/16 08:25 Past History <Natasha Lindsey - Last Filed: 12/01/16 12:43> - Past Medical History Anemia: Yes Asthma: Yes Cancer: No Cardiac Disorders: No CVA: No COPD: No CHF: No Dementia: No Diabetes: No Dialysis: Yes () GI Disorders: Yes Disorders: Yes (ENLARGED PROSTATE) HTN: Yes Hypercholesterolemia: Yes Liver Disease: No Suicide Attempt (Hx): No Seizures: No Thyroid Disease: No - Surgical History Abdominal Surgery: No Appendectomy: No Cardiac Surgery: Yes (2 VALVES REPLACED 04/2015) Cholecystectomy: No Lung Surgery: Yes (h/o MRSA pleural tissue) - Immunization History Immunization Up to Date: No - Psycho/Social/Smoking Cessation Hx Anxiety: No Suicidal Ideation: No Smoking Status: Yes Smoking History: Unknown if ever smoked Have you smoked in the past 12 months: Yes Number of Cigarettes Smoked Daily: 2 Information on smoking cessation initiated: No 'Breaking Loose' booklet given: 07/03/16 Hx Alcohol Use: No Drug/Substance Use Hx: No Substance Use Type: None Hx Substance Use Treatment: Yes (rehab, detox) <Marlon Mendenhall - Last Filed: 12/01/16 12:48> - Past Medical History Allergies/Adverse Reactions: Allergies Allergy/AdvReac Type Severity Reaction Status Date / Time No Known Drug Allergies Allergy Verified 12/01/16 08:18 Home Medications: Ambulatory Orders Calcium Acetate 667 mg PO TID 09/11/16 Cinacalcet HCl [Sensipar] 30 mg PO DAILY 09/11/16 Folic Acid 1 mg PO DAILY 09/11/16 Gabapentin 100 mg PO DAILY 09/11/16 Hydralazine HCl 100 mg PO TID 09/11/16 Nifedipine [Nifedical Xl] 60 mg PO HS 09/11/16 Sevelamer Carbonate [Renvela -] 800 mg PO DAILY 09/11/16 Tamsulosin HCl [Flomax -] 0.4 mg PO DAILY 09/11/16 Oxycodone HCl/Acetaminophen [Percocet 10-325 mg Tablet] 1 each PO Q4H PRN #30 tablet MDD 6 tabs 09/15/16 Review of Systems - Review of Systems Constitutional: No: Chills, Fever Respiratory: Yes: Shortness of Breath Cardiac (ROS): Yes: Chest Pain, Lightheadedness, Palpitations. No: Edema, Syncope ABD/GI: Yes: Nausea, Vomiting Neurological: No: Headache All Other Systems: Reviewed and Negative <Marlon Mendenhall - Last Filed: 12/01/16 12:48> *Physical Exam - Vital Signs Last Vital Signs Temp Pulse Resp BP Pulse Ox 104 H 20 116/74 100 12/01/16 08:26 12/01/16 08:26 12/01/16 08:26 12/01/16 08:26 - Physical Exam Comments: 12/01/16 08:38 GENERAL: The patient is awake, alert, and fully oriented, in no acute distress. HEAD: Normal with no signs of trauma. EYES: Pupils equal, round and reactive to light, extraocular movements intact, sclera anicteric, conjunctiva clear with no pallor. ENT: Ears normal, nares patent, oropharynx clear without exudates. Moist mucous membranes. NECK: Normal range of motion, supple without lymphadenopathy, JVD, or masses. LUNGS: Coarse breath sounds but symmetric. No crackles. HEART: Overall regular rate on auscultation. ABDOMEN: Soft/nontender/nondistended. BS wnl. No guarding or rebound. Slightly enlarged liver. EXTREMITIES: Left upper extremity fistula with palpable thrill no infection or swelling. Normal range of motion, no edema. No clubbing or cyanosis. No cords, erythema, or tenderness. NEUROLOGICAL: Cranial nerves II through XII grossly intact. Normal speech. Gait deferred. PSYCH: Normal mood, normal affect. SKIN: Warm, Dry, normal turgor, no rashes or lesions noted. <Natasha Lindsye - Last Filed: 12/01/16 12:43> - Vital Signs Last Vital Signs Temp Pulse Resp BP Pulse Ox 127 H 28 H 84/68 100 12/01/16 08:10 12/01/16 08:10 12/01/16 08:10 12/01/16 08:10 <Marlon Mendenhall - Last Filed: 12/01/16 12:48> Heart Score/ECG Review #1 ECG reviewed & interpreted by me at: 08:12 General ECG Interpretation: Sinus Rhythm (with APCs), Normal Rate (102), Normal Intervals (RBBB, LPFB), No acute ischemic changes (inferior TWI, V6 TWI) #2 ECG reviewed & interpreted by me at: 08:18 General ECG Interpretation: Sinus Rhythm, Normal Rate (102), Normal Intervals, No acute ischemic changes <Marlon Mendenhall - Last Filed: 12/01/16 12:48> ED Treatment Course - LABORATORY CBC & Chemistry Diagram: 12/01/16 08:26 12/01/16 08:26 <Marlon Mendenhall - Last Filed: 12/01/16 12:48> Medical Decision Making - Critical Care Time Total Critical Care Time (minutes): 50 Critical Care Statement: The care of this patient involved high complexity decision making to prevent further life threatening deterioration of the patient 's condition and/or to evalute & treat vital organ system(s) failure or risk of failure. - Medical Decision Making 12/01/16 08:33 A portion of this note was documented by scribe services under my direction. I have reviewed the details of the note, within reason, and agree with the documentation with the following case summary and management plan written by me. 56-year-old male with history of hypertension, end-stage renal disease on Thursday//Thursday dialysis, CHF brought in by EMS after he awoke this morning with chest pain, palpitations, shortness of breath, lightheadedness with nausea/vomiting. Found to be tachycardic by EMS, was given a dentist seen 6 mg IV which improved his heart rate from 200-108. Patient still complaining of chest pain in the ED. Had full dialysis on Thursday. Patient was found to be an irregular tachycardia at 140-160 upon arrival with blood pressure 110 systolic. Complaining of chest pain. EKG showed narrow complex with frequent premature beats. Cardizem 10 mg was given intravenously with improvement in the rhythm and the rate, now sinus with only occasional APCs and rate of 100. Blood pressure remains stable at 116/74. Will proceed with workup, question primary arrhythmia versus ACS versus electrolyte imbalance given dialysis history. Keep on monitor Labs, EKG, chest x-ray Aspirin Admission 12/01/16 09:38 Hemoglobin 7.8, which is patient's baseline. No leukocytosis. Chest x-ray read as congestion. Remains in sinus rhythm at 100, blood pressure normal. Chest pain improved. Awaiting chemistries and admission. 12/01/16 10:44 Potassium 4.7, troponin 0.05, creatinine baseline 8. Patient had a run of 8 beats of NSVT, asymptomatic. Accepted for inpatient tele by Dr. Gee, admitting for Dr. Tea Hernandez. Dr. San consulted. 12/01/16 12:25 Another run of SVT, resolved with cardizem IV. Given additional PO dose. EKG shows possible 2:1 flutter. Possibly in paroxysmal fib/flutter. Awaiting tele bed. <Marlon Mendenhall - Last Filed: 12/01/16 12:48> *DC/Admit/Observation/Transfer - Attestations Scribe Attestion: 12/01/16 08:43 Documentation prepared by Natasha Lindsey, acting as manager of medical for Marlon Mendenhall MD. <Natasha Lindsey - Last Filed: 12/01/16 12:43> - Discharge Dispostion Admit: Yes <Marlon Mendenhall - Last Filed: 12/01/16 12:48> Diagnosis at time of Disposition: ESRD on hemodialysis, Precordial chest pain, SVT (supraventricular tachycardia) , NSVT (nonsustained ventricular tachycardia) - Discharge Dispostion Condition at time of disposition: Guarded - Referrals
[2016-12-01 09:06] LABS: BASOPHIL 1.3 % (0-2.0); EOSINOPHIL 7.4 % (0-4.5); MCH 33.3 pg (25.7-33.7); MCHC 30.7 g/dl (32.0-35.9); MEAN CELL VOLUME 108.3 fl (80-96); MEAN PLT VOLUME 9.2 fl (7.5-11.1); PLATELET COUNT 195 K/MM3 (134-434); RDW 19.2 % (11.9-15.9); WHITE BLOOD COUNT 6.6 K/mm3 (4.0-10.0)
[2016-12-01] MEDS ORDERED: dilTIAZem HCL 50 MG/10 ML - 10 ML VIAL IVPUSH ONE ×2 (09:06→12:01)
[2016-12-01] MEDS ORDERED: ASPIRIN 81 MG CHEWABLE TABLETS PO ONE (09:06)
[2016-12-01] MEDS ORDERED: SODIUM CHLORIDE 500 ML IV STA (09:06)
[2016-12-01] MEDS ORDERED: ASPIRIN 81 MG CHEWABLE TABLETS ONE (09:11)
[2016-12-01 09:24] LABS: INR 1.27 (0.82-1.09)
[2016-12-01 09:39] LABS: ALBUMIN 2.7 g/dl (3.4-5.0); CALCIUM 8.6 mg/dL (8.5-10.1); MAGNESIUM 2.6 mg/dL (1.8-2.4)
[2016-12-01 09:42] LABS: BILIRUBIN,TOTAL 0.3 mg/dL (0.2-1.0); TOT PROT 6.7 g/dl (6.4-8.2)
[2016-12-01] MEDS ORDERED: SODIUM BICARBONATE 8.4% 50 MEQ/50 ML DISP.SYRIN IVPUSH ONE (09:43)
[2016-12-01 09:45] LABS: TROPONIN I 0.05 ng/ml (0.00-0.05)
[2016-12-01] MEDS ORDERED: SODIUM BICARBONATE 8.4% - 50 ML ONE (09:48)
[2016-12-01 10:26] LABS: CREATININE 8.6 mg/dL (0.7-1.3)
[2016-12-01] MEDS ORDERED: dilTIAZem HCL 30 MG TABLET (FP) PO ONE (12:24)
--- NOTE | 2016-12-01 12:32 | EKG ---
Test Reason : Blood Pressure : / mmHG Vent. Rate : 102 BPM Atrial Rate : 204 BPM P-R Int : 000 ms QRS Dur : 102 ms QT Int : 380 ms P-R-T Axes : -76 141 -50 degrees QTc Int : 495 ms ATRIAL FLUTTER WITH 2:1 A-V CONDUCTION INCOMPLETE RIGHT BUNDLE BRANCH BLOCK RIGHT VENTRICULAR HYPERTROPHY POSSIBLE INFERIOR INFARCT (CITED ON OR BEFORE 01-DEC-2016) ABNORMAL ECG WHEN COMPARED WITH ECG OF 03-JUL-2016 14:41, ATRIAL FLUTTER HAS REPLACED SINUS RHYTHM Confirmed by YARI CARR MD ([id number]) on 12/01/2016 12:32:13 PM Referred By: Confirmed By:YARI CARR MD
[2016-12-01 12:35] VITALS: BMI 18.6
[2016-12-01] MEDS ORDERED: dilTIAZem HCL 30 MG TABLET (FP) ONE (12:44)
--- NOTE | 2016-12-01 13:23 | CON.CARD ---
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 Pt. seen and examined in the ER. Pt. states his symptoms started suddenly this am around 7am. He states that he is feeling much better now but is very tired and states his chest still feels sore. - History Source History Provided By: Patient, Medical Record Limitations to Obtaining History: Poor Historian - Past Medical History Cardio/Vascular: Yes: CHF (Chronic diastolic HF, Severe Pulm HTN), HTN, Hyperlipdemia, Mitral Insufficiency (s/p MVR (bio)), Pulmonary Hypertension, Other (Severe Tricuspid regurgitation, Endocarditis s/p AVR/MVR, recurrent bacteremia) Pulmonary: Yes: Other (PHTN) Gastrointestinal: Yes: Ascites, Constipation Hepatobiliary: Yes: Hepatitis C Renal/: Yes: Renal Failure, Hemodialysis Psych: Yes: Addictions Musculoskeletal: Yes: Bursitis (left shoulder pain) - Past Surgical History Past Surgical History: Yes: AV Fistula/Graft, Hernia Repair (11/19) - Alcohol/Substance Use Hx Alcohol Use: No History of Substance Use: reports: Cocaine (last use 2 weeks ago), Marijuana - Smoking History Smoking history: Unknown if ever smoked Have you smoked in the past 12 months: Yes Aproximately how many cigarettes per day: 2 - Social History ADL: Independent 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 History of Recent Travel: No Home Medications - Allergies Allergies/Adverse Reactions: Allergies Allergy/AdvReac Type Severity Reaction Status Date / Time No Known Drug Allergies Allergy Verified 12/01/16 08:18 - Home Medications Home Medications: Ambulatory Orders Calcium Acetate 667 mg PO TID 09/11/16 Cinacalcet HCl [Sensipar] 30 mg PO DAILY 09/11/16 Folic Acid 1 mg PO DAILY 09/11/16 Gabapentin 100 mg PO DAILY 09/11/16 Hydralazine HCl 100 mg PO TID 09/11/16 Nifedipine [Nifedical Xl] 60 mg PO HS 09/11/16 Sevelamer Carbonate [Renvela -] 800 mg PO DAILY 09/11/16 Tamsulosin HCl [Flomax -] 0.4 mg PO DAILY 09/11/16 Oxycodone HCl/Acetaminophen [Percocet 10-325 mg Tablet] 1 each PO Q4H PRN #30 tablet MDD 6 tabs 09/15/16 Family Disease History - Family Disease History Family Disease History: Other: Father ( of kidney failure), Mother (muscle problems), Sister (healthy and living, HTN) Review of Systems - Review of Systems Constitutional: reports: Chills, Malaise, Weakness. denies: No Symptoms, Diaphoresis, Fever, Lethargy, Loss of Appetite, Night Sweats, Unintentional Wgt. Loss, Other Eyes: denies: No Symptoms, Blind Spots, Blurred Vision, Double Vision, Eye Pain , Floaters, Photophobia, Recent Change in Vision, Other HENT: denies: No Symptoms, Difficult Swallowing, Ear Discharge, Ear Pain, Epistaxis, Gingival Bleeding, Hearing Loss, Mouth Swelling, Nasal Congestion, Ocular Prosthesis, Throat Pain, Toothache, Ringing in Ears, Other Neck: denies: No Symptoms, Decreased ROM, Lumps, Pain on Movement, Stiffness, Swollen Glands, Tenderness, Other Cardiovascular: reports: Chest Pain, Palpitations, Shortness of Breath. denies : No Symptoms, Edema, Other Respiratory: reports: Exercise Intolerance, SOB, SOB on Exertion. denies: No Symptoms, Cough, Hemoptysis, Orthopnea, PND, Snoring, Wheezing, Other Gastrointestinal: reports: Nausea, Vomiting. denies: No Symptoms, Abdominal Pain, Bloating, Constipation, Diarrhea, Dysphagia, Indigestion, Melena, Rectal Bleeding, Vomiting Blood, Other Genitourinary: denies: No Symptoms, Burning, Discharge, Dysuria, Flank Pain, Frequency, Hematuria, Incontinence, Lesions, Menses, Pain, Testicular Mass, Testicular Pain, Testicular Swelling, Urgency, Vaginal Bleeding, Other Breasts: denies: No Symptoms Reported, See HPI, Breast Implants, Discharge from Nipple, Lumps, Pain, Skin Changes, Other Musculoskeletal: reports: Muscle Weakness. denies: No Symptoms, Back Pain, Crepitus, Decreased ROM, Extremity Pain, Joint Pain, Joint Swelling, Muscle Pain , Muscle Cramps, Other Integumentary: denies: No Symptoms, Blister, Bruising, Change in Color, Eczema, Erythema, Incision, Lesions, Lump, Pallor, Pruritis, Rash, Wound, Other Neurological: denies: No Symptoms, Change in LOC, Change in Speech, Confusion, Dizziness, Headache, Incoordination, Numbness, Parasthesia, Pre-Existing Deficit , Seizure, Syncope, Tremors, Unsteady Gait, Weakness, Other Endocrine: denies: No Symptoms, Excessive Sweating, Flushing, Increased Hunger, Increased Thirst, Intolerance to Cold, Intolerance to Heat, Unexplained Weight Gain, Unexplained Weight Loss, Other Hematology/Lymphatic: denies: No Symptoms, Easily Bruised, Excessive Bleeding, Swollen Glands, Other Psychiatric: denies: No Symptoms, Altered Sleep Pattern, Anxiety, Depression, Hallucinations, Panic, Paranoia, Suicidal, Other - Risk Factors Known Risk Factors: Yes: Hypercholesterolemia, Hypertension Vital Signs: Vital Signs Temperature Pulse Rate 106 H 12/01/16 12:48 Respiratory Rate 20 12/01/16 12:48 Blood Pressure 109/80 12/01/16 12:48 O2 Sat by Pulse Oximetry (%) 100 12/01/16 12:48 Constitutional: Yes: Well Nourished, No Distress, Calm Eyes: Yes: WNL, Conjunctiva Clear, EOM Intact, PERRL HENT: Yes: WNL, Atraumatic, Normocephalic Neck: Yes: WNL, Supple, Trachea Midline Respiratory: Yes: Regular, CTA Bilaterally. No: Rales, Rhonchi, Wheezes Gastrointestinal: Yes: WNL, Normal Bowel Sounds, Soft. No: Distention, Tenderness Renal/: Yes: WNL Cardiovascular: Yes: Tachycardia. No: Regular Rate and Rhythm, Bradycardia, Pulse Irregular, Gallop, Rub, Varicosities JVD: No Carotid Bruit: No PMI: Non-Displaced Heart Sounds: Yes: S1, S2. No: Split S2, S3, S4, Clicks, Gallop, Rub, Bruit Murmur: Yes: Systolic Murmur. No: Diastolic Murmur Musculoskeletal: Yes: WNL Extremities: Yes: WNL Edema: No Peripheral Pulses WNL: Yes Peripheral Pulses: 2+ Left Doralis Pedis, 2+ Right Dorsalis Pedis Integumentary: Yes: WNL Neurological: Yes: Alert, Oriented Psychiatric: Yes: Alert, Oriented - Other Data Labs, Other Data: INR, PTT INR 1.27 (0.82-1.09) H 12/01/16 08:26 ekg-sinus tach vs aflutter vs svt 105bpm, incomplete RBBB, nonspecific ST abnl Echo: Report Reviewed Prior Cardiac Procedures: Cardiac Catheterization Imaging - Results Chest X-ray: Report Reviewed, Image Reviewed EKG: Report Reviewed, Image Reviewed Other: Report Reviewed, Image Reviewed (tele-currently appears to be sinus tach) Problem List - Problems (1) NSVT (nonsustained ventricular tachycardia) Code(s): I47.2 - VENTRICULAR TACHYCARDIA (2) Precordial chest pain Code(s): R07.2 - PRECORDIAL PAIN (3) SVT (supraventricular tachycardia) Code(s): I47.1 - SUPRAVENTRICULAR TACHYCARDIA (4) ESRD on hemodialysis Code(s): N18.6 - END STAGE RENAL DISEASE Z99.2 - DEPENDENCE ON RENAL DIALYSIS (5) Acute on chronic combined systolic and diastolic CHF, NYHA class 4 Code(s): I50.43 - ACUTE ON CHRONIC COMBINED SYSTOLIC AND DIASTOLIC HRT FAIL (6) Endocarditis Code(s): I38 - ENDOCARDITIS, VALVE UNSPECIFIED (7) HTN (hypertension) Code(s): I10 - ESSENTIAL (PRIMARY) HYPERTENSION (8) Pulmonary hypertension Code(s): I27.2 - OTHER SECONDARY PULMONARY HYPERTENSION Assessment/Plan 56 year old man with a history of HTN, HLD, ESRD on HD, Pulm HTN, Chronic right sided CHF, normal coronary arteries on cardiac cath 11/2014 [facility], polysubstance abuse, 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 Pt. seen and examined in the ER. Pt. states his symptoms started suddenly this am around 7am. He states that he is feeling much better now but is very tired and states his chest still feels sore. Arrhythmia-unclear, likely SVT vs aflutter -attempt to obtain ekg strips from EMS -ekg in ER unclear what type of arrhythmia, taken after adenosine and cardizem given and HR improved -monitor on tele to further diagnose and treat arrhythmia -check tox screen, h/o polysubstance abuse -will hold off on full AC for now until more clear if aflutter/afib -cont cardizem po for now 30mg tid, as long as BP tolerates -check blood cultures and would obtain an ID evaluation, possible sepsis H/o Endocarditis-with recurrent bacteremia, receiving ABx with HD, now with tachycardia and hypotension -pt was admitted to [facility] last month and [facility] before that, several TODD's were done , decision made not to re-operate on his prosthetic valves and to treat medically with outpatient Abx, full details of that admission not available currently, would obtain reports -outpatient plan was to discuss with nephrology consideration for evaluation of his HD graft -would obtain an ID evaluation -hold anti-HTN meds for now aside from cardizem for rate control -pt noted recently to have mitral/tricuspid regurgitation, need to review records from [facility]
[2016-12-01] MEDS ORDERED: dilTIAZem HCL 50 MG/10 ML - 10 ML VIAL IVPUSH PRN (13:58)
[2016-12-01] MEDS: dilTIAZem HCL 30 MG TABLET (FP) PO SCH ×2 (14:34→22:06)
--- NOTE | 2016-12-01 15:14 | PN ---
Progress Note (short form) - Note Progress Note: ID Consult dictated 56y/o male PMH ESRD, MRSA PVE (06/22), S/P MVR and AVR (04/21) admitted with chest pain, tachycardia, hypotension. Recent [facility] admission with reports of outpatient antibiotic therapy at HD (pt denies current antibiotic therapy at HD) Obtain blood c/s Contacted supervisor residential who will confirm whether pt receiving antibiotics at HD
--- NOTE | 2016-12-01 16:04 | EKG ---
Test Reason : Blood Pressure : / mmHG Vent. Rate : 105 BPM Atrial Rate : 210 BPM P-R Int : 000 ms QRS Dur : 100 ms QT Int : 354 ms P-R-T Axes : -86 145 -37 degrees QTc Int : 467 ms ATRIAL FLUTTER WITH 2:1 A-V CONDUCTION VS ATRIAL TACHYCARDIA INCOMPLETE RIGHT BUNDLE BRANCH BLOCK RIGHT VENTRICULAR HYPERTROPHY POSSIBLE INFERIOR INFARCT (CITED ON OR BEFORE 01-DEC-2016) ABNORMAL ECG WHEN COMPARED WITH ECG OF 01-DEC-2016 08:18, NO SIGNIFICANT CHANGE WAS FOUND Confirmed by YARI CARR MD ([id number]) on 12/01/2016 4:03:54 PM Referred By: Confirmed By:YARI CARR MD
--- NOTE | 2016-12-01 18:12 | CONS ---
DATE OF CONSULTATION: DATE OF DICTATION: 12/01/2016 INFECTIOUS DISEASE CONSULTATION HISTORY OF PRESENT ILLNESS: A 56-year-old male with history of end-stage renal disease on hemodialysis, history of prosthetic valve MRSA endocarditis (June 2016), now readmitted with chest pain syndrome. Patient does not give a reliable history and is uncooperative with exam. According to the notes, he had presented to the emergency room with complaints of chest pain. He was noted to be hypotensive and tachycardic. Patient was treated with adenosine and Cardizem. He was admitted to the telemetry unit. There were concerns raised over the possibility of recurrent infectious endocarditis. According to the ethics instructor, he was recently hospitalized at [facility] and had been receiving antibiotics as well at hemodialysis. Patient denies receiving antibiotics at dialysis. He denies fever or chills. He complains of chest and shoulder pain at the present time. PAST MEDICAL HISTORY: Positive for infectious endocarditis. He is status post mitral and aortic valve replacement in April 2015 at [facility]. He was hospitalized at [facility] and found to have positive blood cultures for MRSA in June of 2016. He had received a course of IV antibiotic therapy at dialysis. Past medical history also positive for end-stage renal disease on hemodialysis, hypertension, hyperlipidemia, pulmonary hypertension, history of chronic liver disease, polysubstance abuse. PAST SURGICAL HISTORY: Status post inguinal hernia, left AV fistula, mitral and aortic valve replacements. ALLERGIES: No known allergies. MEDICATION: Include diltiazem. SOCIAL HISTORY: Positive for active tobacco use and history of polysubstance abuse. LABORATORY DATA: White count 6.6, hematocrit 25.2, platelet count 195, BUN 44, creatinine 8.6. Chest x-ray shows increased markings at the right base. PHYSICAL EXAMINATION: General: He is chronically ill appearing. Vital signs: Temperature 98.7, blood pressure 155/84, pulse 110 regular, respirations 20 per minute. HEENT: Sclerae anicteric. Cardiovascular: Heart sounds S1, S2. A 2/6 pansystolic murmur. Respiratory: Lungs clear. Abdomen: Soft. No tenderness elicited. No mass, rebound, or rigidity. Extremities: 1+ edema. Left upper extremity with AV fistula in place. No erythema or tenderness. 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 Recent [facility] admission with reports of outpatient antibiotic therapy at hemodialysis. Patient denies receiving antibiotics at hemodialysis currently. I have contacted his technology resource teacher, who will confirm whether or not he has been receiving antibiotics at dialysis, obtain blood culture, sedimentation rate, C-reactive protein, further recommendations pending additional information regarding recent clinical course. LIBRA DIAZ M.D. [id number]
[2016-12-01 23:22] LABS: MCH 32.9 pg (25.7-33.7); MCHC 31.2 g/dl (32.0-35.9); MEAN CELL VOLUME 105.4 fl (80-96); MEAN PLT VOLUME 8.9 fl (7.5-11.1); PLATELET COUNT 171 K/MM3 (134-434); RDW 19.1 % (11.9-15.9); WHITE BLOOD COUNT 5.4 K/mm3 (4.0-10.0)
--- NOTE | 2016-12-02 01:19 | HP ---
Admitting History and Physical - Admission Chief Complaint: Chest pain History of Present Illness: Pt is a 56 y/o male who is a poor historian w/ multiple medical problems including HTN, HLD, ESRD on HD, CHF, pulmonary HTN, Hep C, polysubstance abuse and MRSA endocarditis. Pt presented to the ER w/ acute onset of chest pain wc began after he awoke. This was associated w/ nausea and lightleadedness. EMS was called and pt found to be in SVT. Pt found to have a heart rate of 120's however it was even higher and was given adenosine/cardizem. - Past Medical History Cardiovascular: Yes: CHF (Chronic diastolic HF, Severe Pulm HTN), HTN, Hyperlipdemia, Mitral Insufficiency (s/p MVR (bio)), Pulmonary Hypertension, Other (Severe Tricuspid regurgitation, Endocarditis s/p AVR/MVR, recurrent bacteremia) Pulmonary: Yes: Other (PHTN) Gastrointestinal: Yes: Ascites, Constipation Hepatobiliary: Yes: Hepatitis C Renal/: Yes: Renal Failure, Hemodialysis Heme/Onc: Yes: Anemia Psych: Yes: Addictions Musculoskeletal: Yes: Bursitis (left shoulder pain) - Past Surgical History Past Surgical History: Yes: AV Fistula/Graft, Hernia Repair (11/19) Additional Past Surgical History: AVR/MVR - Smoking History Smoking history: Unknown if ever smoked Have you smoked in the past 12 months: Yes Aproximately how many cigarettes per day: 2 - Alcohol/Substance Use Hx Alcohol Use: No History of Substance Use: reports: Cocaine (last use 2 weeks ago), Marijuana - Social History ADL: Independent 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 History of Recent Travel: No Home Medications - Allergies Allergies/Adverse Reactions: Allergies Allergy/AdvReac Type Severity Reaction Status Date / Time No Known Drug Allergies Allergy Verified 12/01/16 08:18 - Home Medications Home Medications: Ambulatory Orders Calcium Acetate 667 mg PO TID 09/11/16 Cinacalcet HCl [Sensipar] 30 mg PO DAILY 09/11/16 Folic Acid 1 mg PO DAILY 09/11/16 Gabapentin 100 mg PO DAILY 09/11/16 Hydralazine HCl 100 mg PO TID 09/11/16 Nifedipine [Nifedical Xl] 60 mg PO HS 09/11/16 Sevelamer Carbonate [Renvela -] 800 mg PO DAILY 09/11/16 Tamsulosin HCl [Flomax -] 0.4 mg PO DAILY 09/11/16 Oxycodone HCl/Acetaminophen [Percocet 10-325 mg Tablet] 1 each PO Q4H PRN #30 tablet MDD 6 tabs 09/15/16 Family Disease History - Family Disease History Family History: Unremarkable Family Disease History: Other: Father ( of kidney failure), Mother (muscle problems), Sister (healthy and living, HTN) Review of Systems - Review of Systems Constitutional: reports: Loss of Appetite, Malaise, Weakness Eyes: reports: No Symptoms HENT: reports: No Symptoms Neck: reports: No Symptoms Cardiovascular: reports: Chest Pain Gastrointestinal: reports: Nausea Genitourinary: reports: No Symptoms Physical Examination Vital Signs: Vital Signs Temperature 98.8 F 12/01/16 17:00 Pulse Rate 107 H 12/01/16 17:00 Respiratory Rate 18 12/01/16 17:00 Blood Pressure 120/78 12/01/16 17:00 O2 Sat by Pulse Oximetry (%) 100 12/01/16 12:48 Constitutional: Yes: No Distress Eyes: Yes: WNL HENT: Yes: WNL Neck: Yes: WNL Cardiovascular: Yes: Tachycardia Respiratory: Yes: WNL Gastrointestinal: Yes: WNL Musculoskeletal: Yes: WNL Extremities: Yes: WNL, Other ((+) AV fistula) Labs: CBC, BMP 12/01/16 23:10 Problem List - Problems (1) GI bleed Assessment/Plan: Pt w/ 2 episodes of BRBPR Monitor H/H Transfuse 1 unit PRBC's Keep NPO GI consult Pt is hemodynamically stable Code(s): K92.2 - GASTROINTESTINAL HEMORRHAGE, UNSPECIFIED Qualifiers: GI bleed type/associated pathology: unspecified gastrointestinal hemorrhage type Qualified Code(s): K92.2 - Gastrointestinal hemorrhage, unspecified (2) Precordial chest pain Assessment/Plan: Admitted to tele As per cardio Code(s): R07.2 - PRECORDIAL PAIN (3) SVT (supraventricular tachycardia) Assessment/Plan: No further episodes Cont meds Code(s): I47.1 - SUPRAVENTRICULAR TACHYCARDIA (4) ESRD on hemodialysis Assessment/Plan: Will need to clarify if pt was receiving IV during dialysis ID consult/renal consult Code(s): N18.6 - END STAGE RENAL DISEASE Z99.2 - DEPENDENCE ON RENAL DIALYSIS (5) Low back pain Code(s): M54.5 - LOW BACK PAIN Qualifiers: Chronicity: acute Back pain laterality: bilateral Sciatica presence : without sciatica Qualified Code(s): M54.5 - Low back pain (6) Anemia in ESRD (end-stage renal disease) Code(s): N18.6 - END STAGE RENAL DISEASE D63.1 - ANEMIA IN CHRONIC KIDNEY DISEASE (7) CHF (congestive heart failure), NYHA class II Code(s): I50.9 - HEART FAILURE, UNSPECIFIED Qualifiers: Congestive heart failure type: unspecified congestive heart failure type Qualified Code(s): I50.9 - Heart failure, unspecified (8) Chronic systolic congestive heart failure Code(s): I50.22 - CHRONIC SYSTOLIC (CONGESTIVE) HEART FAILURE (9) HTN (hypertension) Code(s): I10 - ESSENTIAL (PRIMARY) HYPERTENSION (10) Pulmonary hypertension Code(s): I27.2 - OTHER SECONDARY PULMONARY HYPERTENSION
[2016-12-02] MEDS ORDERED: oxyCODONE HCL 5 MG TABLET PO ONE (03:00)
[2016-12-02] MEDS ORDERED: ACETAMINOPHEN 325 MG TABLET (FP) PO ONE (03:00)
[2016-12-02] MEDS: DEXTROSE 5%-0.45% SALINE 1,000 ML IV SCH ×2 (03:05→12:35)
[2016-12-02] MEDS ORDERED: hydrALAZINE HCL 50 MG TABLET (FP) PO SCH (06:00)
[2016-12-02] MEDS: CALCIUM ACETATE 667 MG CAPSULE (FP) PO SCH ×3 (06:38→21:13)
[2016-12-02 07:23] LABS: BASOPHIL 0.9 % (0-2.0); MCH 32.7 pg (25.7-33.7); MCHC 31.7 g/dl (32.0-35.9); MEAN CELL VOLUME 103.4 fl (80-96); MEAN PLT VOLUME 8.8 fl (7.5-11.1); NEUTROPHILS 68.5 % (42.8-82.8); PLATELET COUNT 152 K/MM3 (134-434); RDW 19.3 % (11.9-15.9); WHITE BLOOD COUNT 5.1 K/mm3 (4.0-10.0)
[2016-12-02 07:27] LABS: ALBUMIN 2.3 g/dl (3.4-5.0); C-REACTIVE PROTEIN 0.5 MG/DL (0.00-0.3)
[2016-12-02 07:34] LABS: BILIRUBIN,TOTAL 0.5 mg/dL (0.2-1.0); TOT PROT 5.4 g/dl (6.4-8.2)
[2016-12-02 07:37] LABS: CREATININE 9.8 mg/dL (0.7-1.3)
[2016-12-02 09:39] LABS: ANISOCYTOSIS 2+; HYPOCHROMIA 1+; POLYCHROMASIA 1+; TARGET CELLS 1+
[2016-12-02 09:40] LABS: MICROCYTOSIS 2+
--- NOTE | 2016-12-02 09:46 | CONSULT ---
Consult - text type - Consultation Consultation Note: Renal Consult for ESRD on Hd This is a 56 year old Gentleman with PMhx of ESRD on HD, CAD, CHF, Endocarditis s/p AVR/MVR, recent admission for Osteomylitis/MRSA Bactermia at [facility] presented with chest pain and found to have SVT in setting of acute Anemia with Hgb of 6.5. Pt reports seeing red blood. No Abd pain. + ASA and NSAID use at home. Last Hgb in outpatient Hd was 7.6 on 11-27-2016. Denies any CP right now. On Tele. NPO for possible procedure. Pt was on Vanco in outpatient HD from 10-18 to 11-16. Blood cultures as outpatient were negative. PMhx: as above AllergieS: NKDA Family Hx: NC Social Hx: Hx of polysubstance abuse ROS: No MARION, CP, SOB, N/V/D, Confusion, Lethargy, weakness Home Meds: Home Medications Medication Instructions Recorded Calcium Acetate 667 mg PO TID 09/11/16 Cinacalcet HCl [Sensipar] 30 mg PO DAILY 09/11/16 Folic Acid 1 mg PO DAILY 09/11/16 Gabapentin 100 mg PO DAILY 09/11/16 Hydralazine HCl 100 mg PO TID 09/11/16 Nifedipine [Nifedical Xl] 60 mg PO HS 09/11/16 Sevelamer Carbonate [Renvela -] 800 mg PO DAILY 09/11/16 Tamsulosin HCl [Flomax -] 0.4 mg PO DAILY 09/11/16 Oxycodone HCl/Acetaminophen 1 each PO Q4H PRN #30 tablet MDD 6 09/15/16 [Percocet 10-325 mg Tablet] tabs Pt reports not taking meds in one week. Vital Signs Temperature 97.7 F 12/02/16 02:00 Pulse Rate 106 H 12/02/16 06:00 Respiratory Rate 20 12/02/16 06:00 Blood Pressure 113/60 12/02/16 06:00 O2 Sat by Pulse Oximetry (%) 96 12/01/16 20:17 Intake & Output 11/29/16 11/30/16 12/01/16 12/02/16 23:59 23:59 23:59 23:59 Intake Total 500 600 Balance 500 600 Weight 145 lb 156 lb 3.2 oz Gen: NAD, awake and alert HEENT: NC/AT, MMM, No JVD CVS: RRR, No M/R Lungs: Dec BS Right lung base, no rales Abd: soft NT/ND Ext: no edema, clubbing or cyanosis Access: Left Arm AVF + thrill and bruit Neuro: No focal defects CBC, BMP 12/02/16 05:47 12/02/16 05:47 Laboratory Tests 12/01/16 12/02/16 12/02/16 08:26 05:47 05:47 MCV 103.4 H Calcium 8.0 L Albumin 2.3 L TSH 4.70 H Current Medications Calcium Acetate (Phoslo -) 667 mg PO TID [facility] Last Admin: 12/02/16 06:38 Dose: Not Given Cinacalcet (Sensipar -) 30 mg PO DAILY [facility] Diltiazem HCl (Cardizem Injection -) 10 mg IVPUSH Q4H PRN PRN Reason: TACHYCARDIA Last Admin: 12/01/16 17:51 Dose: 10 mg Epoetin Cornelio (Procrit -) 20,000 unit IVPUSH ONCE ONE Stop: 12/02/16 10:01 Folic Acid (Folic Acid -) 1 mg PO DAILY [facility] Gabapentin (Neurontin -) 100 mg PO DAILY [facility] Dextrose/Sodium Chloride (D5-1/2ns -) 1,000 mls @ 75 mls/hr IV ASDIR [facility] Last Admin: 12/02/16 03:05 Dose: Not Given Sevelamer Carbonate (Renvela -) 800 mg PO DAILY [facility] Tamsulosin HCl (Flomax -) 0.4 mg PO DAILY@0830 [facility] A/p 56 year old Gentleman with PMhx of ESRD on HD, CAD, CHF, Endocarditis s/p AVR/ MVR, recent admission for Osteomylitis/MRSA Bactermia at [facility] presented with chest pain and found to have SVT in setting of acute Anemia with Hgb of 6.5. #Acute on Chronic Anemia secondary to GI bleed with Anemia of chronic disease s/p 1 unit prbc GI Evaluation and possible colonoscopy Will transfuse additional 2 units with HD today MCV is high, will check Vit B12, and Folic acid levels High Dose Epogen with HD Trend CBC #ESRD on HD For dialysis today with Goal UF of 2.5 to 3 L CXR showed congestion and right effusion Fluid restriction of 1.2L daily Doas all meds for intermittent HD #SVT with Hx of CAD on Tele Now in [facility] following Cardizem PRN #Renal Osteodystrphy Continue Renvela with meals and Sensipar Trend Ca and Phos #Hx of Endocarditis/MRSA Bactermia s/p Abx course as outpatient ID following Thank you Will follow Abdirashid Guthrie DO
--- NOTE | 2016-12-02 09:52 | PN ---
Progress Note, Physician Chief Complaint: no distress H/H dropping. No active bleeding. TELE: NSR. PVCs and couplets. 3 beats NSVT - Current Medication List Current Medications: Active Medications Calcium Acetate (Phoslo -) 667 mg PO TID [facility] Last Admin: 12/02/16 06:38 Dose: Not Given Cinacalcet (Sensipar -) 30 mg PO DAILY [facility] Diltiazem HCl (Cardizem Injection -) 10 mg IVPUSH Q4H PRN PRN Reason: TACHYCARDIA Last Admin: 12/01/16 17:51 Dose: 10 mg Epoetin Cornelio (Procrit -) 20,000 unit IVPUSH ONCE ONE Stop: 12/02/16 10:01 Folic Acid (Folic Acid -) 1 mg PO DAILY [facility] Gabapentin (Neurontin -) 100 mg PO DAILY [facility] Dextrose/Sodium Chloride (D5-1/2ns -) 1,000 mls @ 75 mls/hr IV ASDIR [facility] Last Admin: 12/02/16 03:05 Dose: Not Given Sevelamer Carbonate (Renvela -) 800 mg PO DAILY [facility] Tamsulosin HCl (Flomax -) 0.4 mg PO DAILY@0830 [facility] - Objective Vital Signs: Vital Signs Temperature 97.7 F 12/02/16 02:00 Pulse Rate 106 H 12/02/16 06:00 Respiratory Rate 20 12/02/16 06:00 Blood Pressure 113/60 12/02/16 06:00 O2 Sat by Pulse Oximetry (%) 96 12/01/16 20:17 Constitutional: Yes: No Distress Cardiovascular: Yes: Regular Rate and Rhythm, Other (chronic 2/6 WYATT audible throughout precordium) Respiratory: Yes: Other (decreased breath sounds at bases) Gastrointestinal: Yes: Soft Edema: No Neurological: Yes: Alert, Oriented Labs: CBC, BMP 12/02/16 05:47 12/02/16 05:47 INR, PTT INR 1.27 (0.82-1.09) H 12/01/16 08:26 Microbiology Laboratory Tests 12/01/16 12/02/16 12/02/16 08:26 05:47 05:47 WBC 5.1 Hgb 7.0 L Hct 22.1 L Plt Count 152 Potassium 5.4 H Creatinine 9.8 H* Troponin I 0.05 - ....Imaging EKG: Image Reviewed Assessment/Plan Assessment/Plan 56 year old man with a history of HTN, HLD, ESRD on HD, Pulm HTN, Chronic right sided CHF, normal coronary arteries on cardiac cath 11/2014 [facility], polysubstance abuse, 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 Arrhythmia-unclear, likely SVT -ekg in ER unclear what type of arrhythmia, taken after adenosine and cardizem given and HR improved -monitor on tele to further diagnose and treat arrhythmia -will hold off on full AC for now until more clear if aflutter/afib -Continue Cardizem IV -check blood cultures and would obtain an ID evaluation, possible sepsis H/o Endocarditis-with recurrent bacteremia, receiving ABx with HD -pt was admitted to [facility] last month and [facility] before that, several TODD's were done , decision made not to re-operate on his prosthetic valves and to treat medically with outpatient Abx, full details of that admission not available currently, would obtain reports -outpatient plan was to discuss with nephrology consideration for evaluation of his HD graft -would obtain an ID evaluation Anemia- H/H dropping. follow counts, stool guaiac, transfusional support
[2016-12-02] MEDS ORDERED: EPOETIN ALFA 20,000 UNIT/1 ML VIAL IVPUSH ONE (10:00)
[2016-12-02] MEDS: dilTIAZem HCL 30 MG TABLET (FP) PO SCH ×4 (10:13→21:13)
[2016-12-02] MEDS: SEVELAMER CARBONATE 800 MG TAB (FP) PO SCH ×2 (10:13→13:52)
[2016-12-02] MEDS: FOLIC ACID 1 MG TABLET (FP) PO SCH ×2 (10:13→13:53)
[2016-12-02] MEDS: GABAPENTIN 100 MG CAPSULE (FP) PO SCH ×2 (10:13→13:52)
[2016-12-02] MEDS: TAMSULOSIN HCL 0.4 MG CAP.ER.24H (FP) PO SCH ×2 (10:13→13:53)
[2016-12-02] MEDS: CINACALCET HCL 30 MG TAB (FP) PO SCH ×2 (10:14→13:55)
--- NOTE | 2016-12-02 12:45 | PN ---
Progress Note, Physician History of Present Illness: No complaints Afebrile - Current Medication List Current Medications: Active Medications Calcium Acetate (Phoslo -) 667 mg PO TID [facility] Last Admin: 12/02/16 06:38 Dose: Not Given Cinacalcet (Sensipar -) 30 mg PO DAILY [facility] Last Admin: 12/02/16 10:14 Dose: Not Given Diltiazem HCl (Cardizem Injection -) 10 mg IVPUSH Q4H PRN PRN Reason: TACHYCARDIA Last Admin: 12/01/16 17:51 Dose: 10 mg Diltiazem HCl (Cardizem -) 30 mg PO QID [facility] Last Admin: 12/02/16 10:13 Dose: Not Given Folic Acid (Folic Acid -) 1 mg PO DAILY [facility] Last Admin: 12/02/16 10:13 Dose: Not Given Gabapentin (Neurontin -) 100 mg PO DAILY [facility] Last Admin: 12/02/16 10:13 Dose: Not Given Dextrose/Sodium Chloride (D5-1/2ns -) 1,000 mls @ 75 mls/hr IV ASDIR [facility] Last Admin: 12/02/16 12:35 Dose: Not Given Sevelamer Carbonate (Renvela -) 800 mg PO DAILY [facility] Last Admin: 12/02/16 10:13 Dose: Not Given Tamsulosin HCl (Flomax -) 0.4 mg PO DAILY@0830 [facility] Last Admin: 12/02/16 10:13 Dose: Not Given - Objective Vital Signs: Vital Signs Temperature 98.2 F 12/02/16 10:25 Pulse Rate 77 12/02/16 12:29 Respiratory Rate 18 12/02/16 12:29 Blood Pressure 139/89 12/02/16 12:29 O2 Sat by Pulse Oximetry (%) 96 12/02/16 11:09 Constitutional: Yes: No Distress Eyes: Yes: Conjunctiva Clear Cardiovascular: Yes: Regular Rate and Rhythm, Murmur, S1, S2 Respiratory: Yes: Diminished Labs: CBC, BMP 12/02/16 05:47 12/02/16 05:47 INR, PTT INR 1.27 (0.82-1.09) H 12/01/16 08:26 Assessment/Plan Case discussed with Novelties Sales Representative Pt completed 4w course of vancomycin at mid-November as prescribed by his providers at [facility]. Repeat BC (-) ESR 28 CRP 0.5 Observe off antibiotics Follow up with ID at [facility] post-discharge Will sign off
--- NOTE | 2016-12-02 19:59 | CON.GI ---
Consult Consult Specialty:: gastroenterology Referred by:: Dr Gee - History of Present Illness History of Present Illness: 56 y/o male with multiple medical problems was asked to be seen because of rectal bleeding last night. Today no further bleeding. He underwent colonoscopy and EGD by Dr Law 06/2016. He was noted to have multiple colonic polyps.EGD revealed erosive gastritis and duodenitis. - Past Medical History Cardio/Vascular: Yes: CHF (Chronic diastolic HF, Severe Pulm HTN), HTN, Hyperlipdemia, Mitral Insufficiency (s/p MVR (bio)), Pulmonary Hypertension, Other (Severe Tricuspid regurgitation, Endocarditis s/p AVR/MVR, recurrent bacteremia) Pulmonary: Yes: Other (PHTN) Gastrointestinal: Yes: Ascites, Constipation Hepatobiliary: Yes: Hepatitis C Renal/: Yes: Renal Failure, Hemodialysis Psych: Yes: Addictions Musculoskeletal: Yes: Bursitis (left shoulder pain) - Past Surgical History Past Surgical History: Yes: AV Fistula/Graft, Hernia Repair (11/19) - Alcohol/Substance Use Hx Alcohol Use: No History of Substance Use: reports: Cocaine (last use 2 weeks ago), Marijuana - Smoking History Smoking history: Unknown if ever smoked Have you smoked in the past 12 months: Yes Aproximately how many cigarettes per day: 2 - Social History ADL: Independent 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 History of Recent Travel: No Home Medications - Allergies Allergies/Adverse Reactions: Allergies Allergy/AdvReac Type Severity Reaction Status Date / Time No Known Drug Allergies Allergy Verified 12/01/16 08:18 - Home Medications Home Medications: Ambulatory Orders Calcium Acetate 667 mg PO TID 09/11/16 Cinacalcet HCl [Sensipar] 30 mg PO DAILY 09/11/16 Folic Acid 1 mg PO DAILY 09/11/16 Gabapentin 100 mg PO DAILY 09/11/16 Hydralazine HCl 100 mg PO TID 09/11/16 Nifedipine [Nifedical Xl] 60 mg PO HS 09/11/16 Sevelamer Carbonate [Renvela -] 800 mg PO DAILY 09/11/16 Tamsulosin HCl [Flomax -] 0.4 mg PO DAILY 09/11/16 Oxycodone HCl/Acetaminophen [Percocet 10-325 mg Tablet] 1 each PO Q4H PRN #30 tablet MDD 6 tabs 09/15/16 Family Disease History - Family Disease History Family Disease History: Other: Father ( of kidney failure), Mother (muscle problems), Sister (healthy and living, HTN) Physical Exam-GI Vital Signs: Vital Signs Temperature 98.8 F 12/02/16 17:00 Pulse Rate 80 12/02/16 17:00 Respiratory Rate 18 12/02/16 17:00 Blood Pressure 138/84 12/02/16 17:00 O2 Sat by Pulse Oximetry (%) 96 12/02/16 11:09 Constitutional: Yes: Well Nourished Eyes: Yes: Conjunctiva Clear HENT: Yes: Atraumatic Neck: Yes: Trachea Midline Cardiovascular: Yes: Regular Rate and Rhythm Respiratory: Yes: CTA Bilaterally Gastrointestinal Inspection: Yes: Distention ...Auscultate: Yes: Normoactive Bowel Sounds ...Rectal Exam: Yes: Hemorrhoids/Internal, Sphincter Tone Normal Labs: CBC, BMP 12/02/16 05:47 12/02/16 05:47 INR, PTT INR 1.27 (0.82-1.09) H 12/01/16 08:26 Problem List - Problems (1) Rectal bleeding Assessment/Plan: most likely secondary to internal hemorrhoids, he had brown stool on examination R> hydrocortisone suppository will repeat colonoscopy if recurrent bleeding occurs as this was just performed by Dr Law Code(s): K62.5 - HEMORRHAGE OF ANUS AND RECTUM
[2016-12-02] MEDS: PANTOPRAZOLE 40 MG TABLET (FP) PO SCH (21:13)
[2016-12-02] MEDS: oxyCODONE HCL 5 MG TABLET PO PRN (21:16)
[2016-12-02] MEDS: ACETAMINOPHEN 325 MG TABLET (FP) PO PRN (21:27)
[2016-12-02] MEDS ORDERED: NIFEdipine E.R 60 MG TABLET (UD) PO SCH (22:00)
[2016-12-03] MEDS: DEXTROSE 5%-0.45% SALINE 1,000 ML IV SCH (01:00)
[2016-12-03] MEDS: CALCIUM ACETATE 667 MG CAPSULE (FP) PO SCH ×3 (06:23→22:39)
[2016-12-03] MEDS: SEVELAMER CARBONATE 800 MG TAB (FP) PO SCH (09:02)
[2016-12-03] MEDS: FOLIC ACID 1 MG TABLET (FP) PO SCH (09:02)
[2016-12-03] MEDS: oxyCODONE HCL 5 MG TABLET PO PRN (09:02)
[2016-12-03] MEDS: GABAPENTIN 100 MG CAPSULE (FP) PO SCH (09:02)
[2016-12-03] MEDS: TAMSULOSIN HCL 0.4 MG CAP.ER.24H (FP) PO SCH (09:02)
[2016-12-03] MEDS: PANTOPRAZOLE 40 MG TABLET (FP) PO SCH (09:03)
[2016-12-03] MEDS: dilTIAZem HCL 30 MG TABLET (FP) PO SCH (09:03)
[2016-12-03] MEDS: ACETAMINOPHEN 325 MG TABLET (FP) PO PRN (09:03)
--- NOTE | 2016-12-03 09:53 | PN ---
Progress Note, Physician Chief Complaint: echo w/ Normal LV severe PHTN TELE: several 3 beat runs NSVT, no further PSVT - Current Medication List Current Medications: Active Medications Acetaminophen (Tylenol -) 325 mg PO Q12H PRN PRN Reason: PAIN Last Admin: 12/03/16 09:03 Dose: 325 mg Calcium Acetate (Phoslo -) 667 mg PO TID [facility] Last Admin: 12/03/16 06:23 Dose: 667 mg Cinacalcet (Sensipar -) 30 mg PO DAILY [facility] Last Admin: 12/02/16 13:55 Dose: 30 mg Diltiazem HCl (Cardizem Injection -) 10 mg IVPUSH Q4H PRN PRN Reason: TACHYCARDIA Last Admin: 12/01/16 17:51 Dose: 10 mg Diltiazem HCl (Cardizem -) 30 mg PO QID [facility] Last Admin: 12/03/16 09:03 Dose: 30 mg Folic Acid (Folic Acid -) 1 mg PO DAILY [facility] Last Admin: 12/03/16 09:02 Dose: 1 mg Gabapentin (Neurontin -) 100 mg PO DAILY [facility] Last Admin: 12/03/16 09:02 Dose: 100 mg Dextrose/Sodium Chloride (D5-1/2ns -) 1,000 mls @ 75 mls/hr IV ASDIR [facility] Last Admin: 12/03/16 01:00 Dose: Not Given Oxycodone HCl (Roxicodone -) 5 mg PO Q12H PRN PRN Reason: PAIN Last Admin: 12/03/16 09:02 Dose: 5 mg Pantoprazole Sodium (Protonix -) 40 mg PO DAILY [facility] Last Admin: 12/03/16 09:03 Dose: 40 mg Sevelamer Carbonate (Renvela -) 800 mg PO DAILY [facility] Last Admin: 12/03/16 09:02 Dose: 800 mg Tamsulosin HCl (Flomax -) 0.4 mg PO DAILY@0830 [facility] Last Admin: 12/03/16 09:02 Dose: 0.4 mg - Objective Vital Signs: Vital Signs Temperature 98.1 F 12/03/16 09:15 Pulse Rate 85 12/03/16 09:15 Respiratory Rate 18 12/03/16 09:15 Blood Pressure 123/69 12/03/16 09:15 O2 Sat by Pulse Oximetry (%) 96 12/03/16 06:00 Constitutional: Yes: Calm Eyes: Yes: Conjunctiva Clear Cardiovascular: Yes: Regular Rate and Rhythm (chronic 2/6 WYATT RSB) Respiratory: Yes: Other (decreased breath sounds right base) Gastrointestinal: Yes: Soft (mildly distended) Edema: No Neurological: Yes: Alert Labs: CBC, BMP 12/02/16 05:47 12/02/16 05:47 INR, PTT INR 1.27 (0.82-1.09) H 12/01/16 08:26 - ....Imaging EKG: Image Reviewed Assessment/Plan ESRD S/p MV/TV replacement for IE several years ago Chronic HTN, hypertensive heart dz Severe PHTN PSVT REC: No further PSVT noted on Cardizem Would change to Cardizem CD 120. NSVT with normal LV on echo- keep K and Mg optimized.
[2016-12-03] MEDS ORDERED: ALBUTEROL SO4 2.5/IPRATROPIUM 0.5 INH SOL 3 ML VIAL.NEB. NEB PRN (11:46)
[2016-12-03] MEDS ORDERED: ACETAMINOPHEN 325 MG TABLET (FP) PO PRN (11:50)
[2016-12-03] MEDS ORDERED: oxyCODONE HCL 5 MG TABLET PO PRN (11:50)
[2016-12-03] MEDS: CINACALCET HCL 30 MG TAB (FP) PO SCH (11:55)
--- NOTE | 2016-12-03 16:21 | PN ---
Progress Note (short form) - Note Progress Note: Renal Follow up for ESRD Pt seen and examined at the bedside no acute complaints denies any sob, chest pain, abd pain, N/V/D Vital Signs Temperature 98.1 F 12/03/16 09:15 Pulse Rate 78 12/03/16 12:38 Respiratory Rate 18 12/03/16 09:15 Blood Pressure 123/69 12/03/16 09:15 O2 Sat by Pulse Oximetry (%) 94 L 12/03/16 12:38 Gen: NAD CVS: RRR, No M/R Lungs: CTA Abd: soft NT/ND Ext: no edema, clubbing or cyanosis Access: Left Arm AVF + thrill and bruit CBC, BMP 12/02/16 05:47 12/02/16 05:47 Current Medications Acetaminophen (Tylenol -) 625 mg PO BID PRN Albuterol/Ipratropium (Duoneb -) 1 amp NEB Q6H PRN Last Admin: 12/03/16 13:10 Dose: 1 amp Calcium Acetate (Phoslo -) 667 mg PO TID [facility] Last Admin: 12/03/16 14:45 Dose: 667 mg Cinacalcet (Sensipar -) 30 mg PO DAILY [facility] Last Admin: 12/03/16 11:55 Dose: 30 mg Diltiazem HCl (Cardizem Injection -) 10 mg IVPUSH Q4H PRN PRN Reason: TACHYCARDIA Last Admin: 12/01/16 17:51 Dose: 10 mg Diltiazem HCl (Cardizem Cd -) 120 mg PO DAILY [facility] Last Admin: 12/03/16 11:55 Dose: 120 mg Folic Acid (Folic Acid -) 1 mg PO DAILY [facility] Last Admin: 12/03/16 09:02 Dose: 1 mg Gabapentin (Neurontin -) 100 mg PO DAILY [facility] Last Admin: 12/03/16 09:02 Dose: 100 mg Dextrose/Sodium Chloride (D5-1/2ns -) 1,000 mls @ 75 mls/hr IV ASDIR [facility] Last Admin: 12/03/16 01:00 Dose: Not Given Oxycodone HCl (Roxicodone -) 10 mg PO BID PRN Pantoprazole Sodium (Protonix -) 40 mg PO DAILY [facility] Last Admin: 12/03/16 09:03 Dose: 40 mg Sevelamer Carbonate (Renvela -) 800 mg PO DAILY [facility] Last Admin: 12/03/16 09:02 Dose: 800 mg Tamsulosin HCl (Flomax -) 0.4 mg PO DAILY@0830 [facility] Last Admin: 12/03/16 09:02 Dose: 0.4 mg A/p 56 year old Gentleman with PMhx of ESRD on HD, CAD, CHF, Endocarditis s/p AVR/ MVR, recent admission for Osteomylitis/MRSA Bactermia at [facility] presented with chest pain and found to have SVT in setting of acute Anemia with Hgb of 6.5. #Acute on Chronic Anemia secondary to GI bleed with Anemia of chronic disease s/p PRBC transfusions yesterday no cbc recorded today no further bleeding see by GI, likely hemorrhoidal bleed no acute intervention needed will continue high dose Epogen with HD #ESRD on HD No acute indication for BROACHER today next treatment planned for tomorrow #SVT with Hx of CAD Cardiology following #Renal Osteodystrphy Continue Renvela with meals and Sensipar Trend Ca and Phos #Hx of Endocarditis/MRSA Bactermia s/p Abx course as outpatient ID following Abdirashid Guthrie DO
--- NOTE | 2016-12-03 19:30 | PN ---
GI Progress Note Subjective: Patient seems comfortable . No dyspnea at rest. He had many questions about his liver status - Objective Vital Signs: Vital Signs Temperature 97.6 F 12/03/16 16:46 Pulse Rate 86 12/03/16 16:46 Respiratory Rate 20 12/03/16 16:46 Blood Pressure 122/68 12/03/16 16:46 O2 Sat by Pulse Oximetry (%) 94 L 12/03/16 12:38 Constitutional: Thin Respiratory: Yes: Regular, Diminished Gastrointestinal Inspection: Yes: WNL ...Auscultate: Yes: Normoactive Bowel Sounds ...Palpate: Yes: Soft. No: Tenderness ...Percussion: Yes: Dullness Labs: CBC, BMP 12/02/16 05:47 12/02/16 05:47 INR, PTT INR 1.27 (0.82-1.09) H 12/01/16 08:26 Assessment/Plan Anemia: Secondary to renal failure, chronic disease, and probably some degree of hemolysis from artificial valves. He is to be transfused 2 units at dialysis tomorrow He is a patient of Dr Alcantara and Dr Law and has seen them in the office. Recommend he follow with them in the future.
--- NOTE | 2016-12-03 22:48 | PN ---
Progress Note, Physician History of Present Illness: No new complaints - Current Medication List Current Medications: Active Medications Acetaminophen (Tylenol -) 625 mg PO BID PRN Albuterol/Ipratropium (Duoneb -) 1 amp NEB Q6H PRN Last Admin: 12/03/16 13:10 Dose: 1 amp Calcium Acetate (Phoslo -) 667 mg PO TIDCM [facility] Cinacalcet (Sensipar -) 30 mg PO DAILY [facility] Last Admin: 12/03/16 11:55 Dose: 30 mg Diltiazem HCl (Cardizem Injection -) 10 mg IVPUSH Q4H PRN PRN Reason: TACHYCARDIA Last Admin: 12/01/16 17:51 Dose: 10 mg Diltiazem HCl (Cardizem Cd -) 120 mg PO DAILY [facility] Last Admin: 12/03/16 11:55 Dose: 120 mg Epoetin Cornelio (Procrit -) 20,000 unit IVPUSH ONCE ONE Stop: 12/04/16 08:01 Folic Acid (Folic Acid -) 1 mg PO DAILY [facility] Last Admin: 12/03/16 09:02 Dose: 1 mg Gabapentin (Neurontin -) 100 mg PO DAILY [facility] Last Admin: 12/03/16 09:02 Dose: 100 mg Dextrose/Sodium Chloride (D5-1/2ns -) 1,000 mls @ 75 mls/hr IV ASDIR [facility] Last Admin: 12/03/16 01:00 Dose: Not Given Oxycodone HCl (Roxicodone -) 10 mg PO BID PRN Pantoprazole Sodium (Protonix -) 40 mg PO DAILY [facility] Last Admin: 12/03/16 09:03 Dose: 40 mg Sevelamer Carbonate (Renvela -) 800 mg PO DAILY [facility] Last Admin: 12/03/16 09:02 Dose: 800 mg Tamsulosin HCl (Flomax -) 0.4 mg PO DAILY@0830 [facility] Last Admin: 12/03/16 09:02 Dose: 0.4 mg - Objective Vital Signs: Vital Signs Temperature 99.1 F 12/03/16 17:00 Pulse Rate 81 12/03/16 17:00 Respiratory Rate 18 12/03/16 17:00 Blood Pressure 108/54 12/03/16 17:00 O2 Sat by Pulse Oximetry (%) 94 L 12/03/16 12:38 Cardiovascular: Yes: WNL, Regular Rate and Rhythm Respiratory: Yes: WNL, Regular, CTA Bilaterally Gastrointestinal: Yes: WNL, Normal Bowel Sounds, Soft Labs: CBC, BMP 12/02/16 05:47 12/02/16 05:47 INR, PTT INR 1.27 (0.82-1.09) H 12/01/16 08:26 Problem List - Problems (1) GI bleed Code(s): K92.2 - GASTROINTESTINAL HEMORRHAGE, UNSPECIFIED Qualifiers: GI bleed type/associated pathology: unspecified gastrointestinal hemorrhage type Qualified Code(s): K92.2 - Gastrointestinal hemorrhage, unspecified (2) Precordial chest pain Code(s): R07.2 - PRECORDIAL PAIN (3) SVT (supraventricular tachycardia) Code(s): I47.1 - SUPRAVENTRICULAR TACHYCARDIA (4) ESRD on hemodialysis Code(s): N18.6 - END STAGE RENAL DISEASE Z99.2 - DEPENDENCE ON RENAL DIALYSIS (5) Low back pain Code(s): M54.5 - LOW BACK PAIN Qualifiers: Chronicity: acute Back pain laterality: bilateral Sciatica presence : without sciatica Qualified Code(s): M54.5 - Low back pain (6) Anemia in ESRD (end-stage renal disease) Code(s): N18.6 - END STAGE RENAL DISEASE D63.1 - ANEMIA IN CHRONIC KIDNEY DISEASE (7) CHF (congestive heart failure), NYHA class II Code(s): I50.9 - HEART FAILURE, UNSPECIFIED Qualifiers: Congestive heart failure type: unspecified congestive heart failure type Qualified Code(s): I50.9 - Heart failure, unspecified (8) Chronic systolic congestive heart failure Code(s): I50.22 - CHRONIC SYSTOLIC (CONGESTIVE) HEART FAILURE (9) HTN (hypertension) Code(s): I10 - ESSENTIAL (PRIMARY) HYPERTENSION (10) Pulmonary hypertension Code(s): I27.2 - OTHER SECONDARY PULMONARY HYPERTENSION
[2016-12-04 00:11] LABS: HEP B SURFACE AB Non Reactive (.)
[2016-12-04] MEDS: CALCIUM ACETATE 667 MG CAPSULE (FP) PO SCH ×3 (08:06→17:11)
[2016-12-04] MEDS: TAMSULOSIN HCL 0.4 MG CAP.ER.24H (FP) PO SCH ×2 (08:06→11:17)
[2016-12-04 08:40] LABS: MCH 32.6 pg (25.7-33.7); MCHC 32.9 g/dl (32.0-35.9); MEAN PLT VOLUME 9.1 fl (7.5-11.1); PLATELET COUNT 134 K/MM3 (134-434); RDW 19.5 % (11.9-15.9); WHITE BLOOD COUNT 5.8 K/mm3 (4.0-10.0)
[2016-12-04 09:08] LABS: ALBUMIN 2.3 g/dl (3.4-5.0); BILIRUBIN,TOTAL 0.3 mg/dL (0.2-1.0); CALCIUM 7.8 mg/dL (8.5-10.1); PHOSPHOROUS 5.1 mg/dL (2.5-4.9); TOT PROT 5.7 g/dl (6.4-8.2)
[2016-12-04] MEDS ORDERED: EPOETIN ALFA 20,000 UNIT/1 ML VIAL IVPUSH ONE (09:15)
[2016-12-04 09:27] LABS: CREATININE 9.2 mg/dL (0.7-1.3)
--- NOTE | 2016-12-04 10:37 | PN ---
Progress Note, Physician History of Present Illness: seen and examined today. finishing HD. tolerated well. states he is feeling well. no overnight events. no new complaints. - Current Medication List Current Medications: Active Medications Acetaminophen (Tylenol -) 625 mg PO BID PRN Albuterol/Ipratropium (Duoneb -) 1 amp NEB Q6H PRN Last Admin: 12/03/16 13:10 Dose: 1 amp Calcium Acetate (Phoslo -) 667 mg PO TIDCM [facility] Last Admin: 12/04/16 08:06 Dose: Not Given Cinacalcet (Sensipar -) 30 mg PO DAILY [facility] Last Admin: 12/03/16 11:55 Dose: 30 mg Diltiazem HCl (Cardizem Injection -) 10 mg IVPUSH Q4H PRN PRN Reason: TACHYCARDIA Last Admin: 12/01/16 17:51 Dose: 10 mg Diltiazem HCl (Cardizem Cd -) 120 mg PO DAILY [facility] Last Admin: 12/03/16 11:55 Dose: 120 mg Folic Acid (Folic Acid -) 1 mg PO DAILY [facility] Last Admin: 12/03/16 09:02 Dose: 1 mg Gabapentin (Neurontin -) 100 mg PO DAILY [facility] Last Admin: 12/03/16 09:02 Dose: 100 mg Dextrose/Sodium Chloride (D5-1/2ns -) 1,000 mls @ 75 mls/hr IV ASDIR [facility] Last Admin: 12/03/16 01:00 Dose: Not Given Oxycodone HCl (Roxicodone -) 10 mg PO BID PRN Pantoprazole Sodium (Protonix -) 40 mg PO DAILY [facility] Last Admin: 12/03/16 09:03 Dose: 40 mg Sevelamer Carbonate (Renvela -) 800 mg PO DAILY [facility] Last Admin: 12/03/16 09:02 Dose: 800 mg Tamsulosin HCl (Flomax -) 0.4 mg PO DAILY@0830 [facility] Last Admin: 12/04/16 08:06 Dose: Not Given - Objective Vital Signs: Vital Signs Temperature 98.1 F 12/04/16 08:10 Pulse Rate 92 H 12/04/16 10:00 Respiratory Rate 18 12/04/16 10:00 Blood Pressure 133/73 12/04/16 10:00 O2 Sat by Pulse Oximetry (%) 96 12/03/16 21:00 Constitutional: Yes: Well Nourished, No Distress, Calm Eyes: Yes: WNL, Conjunctiva Clear, EOM Intact, PERRL HENT: Yes: WNL, Atraumatic, Normocephalic Neck: Yes: WNL, Supple, Trachea Midline Cardiovascular: Yes: Regular Rate and Rhythm, Murmur, S1, S2. No: Bradycardia, Tachycardia, Pulse Irregular, Bruit, JVD, Gallop, Rub, S3, S4, Varicosities Respiratory: Yes: Regular, CTA Bilaterally. No: Rales, Rhonchi, Wheezes Gastrointestinal: Yes: WNL, Normal Bowel Sounds, Soft. No: Distention, Tenderness Musculoskeletal: Yes: WNL Extremities: Yes: WNL Edema: No Peripheral Pulses WNL: Yes Peripheral Pulses: Left Doralis Pedis: 2+, Right Dorsalis Pedis: 2+ Integumentary: Yes: WNL Neurological: Yes: WNL, Alert, Oriented Psychiatric: Yes: Alert, Oriented Labs: CBC, BMP 12/04/16 07:10 12/04/16 07:10 INR, PTT INR 1.27 (0.82-1.09) H 12/01/16 08:26 - ....Imaging Chest X-ray: Report Reviewed, Image Reviewed EKG: Report Reviewed, Image Reviewed Other: Report Reviewed, Image Reviewed (tele-nsr, pvcs, couplets, triplets, short 3 beats NSVT episodes) Problem List - Problems (1) NSVT (nonsustained ventricular tachycardia) Code(s): I47.2 - VENTRICULAR TACHYCARDIA (2) Precordial chest pain Code(s): R07.2 - PRECORDIAL PAIN (3) SVT (supraventricular tachycardia) Code(s): I47.1 - SUPRAVENTRICULAR TACHYCARDIA (4) ESRD on hemodialysis Code(s): N18.6 - END STAGE RENAL DISEASE Z99.2 - DEPENDENCE ON RENAL DIALYSIS (5) Acute on chronic combined systolic and diastolic CHF, NYHA class 4 Code(s): I50.43 - ACUTE ON CHRONIC COMBINED SYSTOLIC AND DIASTOLIC HRT FAIL (6) Endocarditis Code(s): I38 - ENDOCARDITIS, VALVE UNSPECIFIED (7) HTN (hypertension) Code(s): I10 - ESSENTIAL (PRIMARY) HYPERTENSION (8) Pulmonary hypertension Code(s): I27.2 - OTHER SECONDARY PULMONARY HYPERTENSION Assessment/Plan ESRD S/p MV/TV replacement for IE several years ago Chronic HTN, hypertensive heart dz Severe PHTN PSVT REC: PSVT has not recurred on cardizem Cont Cardizem CD 120mg daily 3 beat episodes, short NSVT Echo showed normal LV systolic function K > 4 and Mg >2 Ok from a cardiac standpoint for discharge Plan for close outpatient follow up and further event monitoring as outpatient to evaluate for recurrent PSVT and NSVT HTN adequately controlled
[2016-12-04] MEDS: SEVELAMER CARBONATE 800 MG TAB (FP) PO SCH (11:17)
[2016-12-04] MEDS: PANTOPRAZOLE 40 MG TABLET (FP) PO SCH (11:17)
[2016-12-04] MEDS: GABAPENTIN 100 MG CAPSULE (FP) PO SCH (11:17)
[2016-12-04] MEDS: FOLIC ACID 1 MG TABLET (FP) PO SCH (11:17)
[2016-12-04] MEDS: CINACALCET HCL 30 MG TAB (FP) PO SCH (11:18)
--- NOTE | 2016-12-04 11:26 | PN ---
Progress Note (short form) - Note Progress Note: Renal Follow up for ESRD Pt seen and examined during dialysis BP stable, access with good function has some epigastric discomfort and some Nausea this am Vital Signs Temperature 98.1 F 12/04/16 08:10 Pulse Rate 88 12/04/16 10:45 Respiratory Rate 18 12/04/16 10:45 Blood Pressure 126/72 12/04/16 10:45 O2 Sat by Pulse Oximetry (%) 98 12/04/16 08:00 Intake & Output 12/01/16 12/02/16 12/03/16 12/04/16 23:59 23:59 23:59 23:59 Intake Total 500 1080 600 Balance 500 1080 600 Weight 145 lb 156 lb 3.2 oz 154 lb 6.4 oz Gen: NAD CVS: RRR, No M/R Lungs: CTA Abd: soft NT/ND Ext: no edema, clubbing or cyanosis Access: Left Arm AVF + thrill and bruit CBC, BMP 12/04/16 07:10 Current Medications Acetaminophen (Tylenol -) 625 mg PO BID PRN Albuterol/Ipratropium (Duoneb -) 1 amp NEB Q6H PRN Last Admin: 12/03/16 13:10 Dose: 1 amp Calcium Acetate (Phoslo -) 667 mg PO TIDCM [facility] Last Admin: 12/04/16 11:17 Dose: 667 mg Cinacalcet (Sensipar -) 30 mg PO DAILY [facility] Last Admin: 12/04/16 11:18 Dose: 30 mg Diltiazem HCl (Cardizem Injection -) 10 mg IVPUSH Q4H PRN PRN Reason: TACHYCARDIA Last Admin: 12/01/16 17:51 Dose: 10 mg Diltiazem HCl (Cardizem Cd -) 120 mg PO DAILY [facility] Last Admin: 12/04/16 11:16 Dose: 120 mg Folic Acid (Folic Acid -) 1 mg PO DAILY [facility] Last Admin: 12/04/16 11:17 Dose: 1 mg Gabapentin (Neurontin -) 100 mg PO DAILY [facility] Last Admin: 12/04/16 11:17 Dose: 100 mg Dextrose/Sodium Chloride (D5-1/2ns -) 1,000 mls @ 75 mls/hr IV ASDIR [facility] Last Admin: 12/03/16 01:00 Dose: Not Given Oxycodone HCl (Roxicodone -) 10 mg PO BID PRN Pantoprazole Sodium (Protonix -) 40 mg PO DAILY [facility] Last Admin: 12/04/16 11:17 Dose: 40 mg Sevelamer Carbonate (Renvela -) 800 mg PO DAILY [facility] Last Admin: 12/04/16 11:17 Dose: 800 mg Tamsulosin HCl (Flomax -) 0.4 mg PO DAILY@0830 [facility] Last Admin: 12/04/16 11:17 Dose: 0.4 mg A/p 56 year old Gentleman with PMhx of ESRD on HD, CAD, CHF, Endocarditis s/p AVR/ MVR, recent admission for Osteomylitis/MRSA Bactermia at [facility] presented with chest pain and found to have SVT in setting of acute Anemia with Hgb of 6.5. #Acute on Chronic Anemia secondary to GI bleed (hemorrhoidal) Hgb improved to 8 continue high dose MARCO ANTONIO no acute intervention at this time as per GI #ESRD on HD tolerating dialysis well next Hd as outpatient #SVT with Hx of CAD Cardiology following #Renal Osteodystrphy Continue Renvela with meals and Sensipar Trend Ca and Phos #Hx of Endocarditis/MRSA Bactermia s/p Abx course as outpatient ID following #Nausea and Epigastric discomfort on PPI currently Abdirashid Guthrie DO
[2016-12-04 11:55] LABS: CREATININE 3.3 mg/dL (0.7-1.3)
[2016-12-04 15:31] VITALS: BP 137/60; PULSE 83; TEMP 99
== END 2016-12-04 17:21 | disposition home health service (06) | DRG 253 ==
LOC: JER 08:09 → JERBED 10:45 → J4W 14:00
PROVIDERS: ADMIT Internal Medicine; ATTEND Internal Medicine
PROC: 30233N1 Transfusion of Nonautologous Red Blood Cells into Peripheral Vein, Percutaneous Approach (ICD-10-PCS; principal; 2016-12-01)
PROC: 5A1D60Z (ICD-10-PCS; 2016-12-02)
DX: K92.2 Gastrointestinal hemorrhage, unspecified (principal); D50.0 Iron deficiency anemia secondary to blood loss (chronic); I47.1 Supraventricular tachycardia; N25.0 Renal osteodystrophy; Z95.2 Presence of prosthetic heart valve; B19.20 Unspecified viral hepatitis C without hepatic coma; F17.210 Nicotine dependence, cigarettes, uncomplicated; N40.0 Benign prostatic hyperplasia without lower urinary tract symptoms; I13.2 Hypertensive heart and chronic kidney disease with heart failure and with stage 5 chronic kidney disease, or end stage renal disease; N18.6 End stage renal disease; Z99.2 Dependence on renal dialysis; F14.10 Cocaine abuse, uncomplicated; F12.10 Cannabis abuse, uncomplicated; I27.2 Other secondary pulmonary hypertension; R07.89 Other chest pain; I36.1 Nonrheumatic tricuspid (valve) insufficiency; I50.22 Chronic systolic (congestive) heart failure; K64.8 Other hemorrhoids
CPT/HCPCS: 36415; 36430; 71010-TC; 80053; 82550; 82565; 82607; 82746; 83735; 84100; 84443; 84484; 84520; 85025; 85027; 85610; 85651; 86140; 86704; 86706; 86708; 86850; 86900; 86901; 86922; 87040; 87340; 93005; 93010; 93306-TC; 94640; 99285-25; J0885; P9038; P9058

== ENCOUNTER 2017-02-23 09:47 | Day surgery (SDC) | payer OTHER ==
[2017-02-20 14:03] VITALS: BMI 17.4
[2017-02-23] MEDS ORDERED: LIDOCAINE HCL/PF 2% SDV 5ML VIAL ONE (12:09)
[2017-02-23] MEDS ORDERED: MIDAZOLAM HCL 2 MG/2 ML SINGLE DOSE VIAL ONE ×2 (12:09→12:52)
[2017-02-23] MEDS ORDERED: PROPOFOL 20 ML ONE ×2 (12:09→13:23)
[2017-02-23] MEDS ORDERED: ceFAZolin SODIUM 1 GM VIAL ONE (12:15)
[2017-02-23] MEDS ORDERED: HEPARIN NA (PORCINE) 5,000 UNITS/ML 1ML VIAL ONE (12:37)
[2017-02-23] MEDS ORDERED: LIDOCAINE HCL 1%, 10 MG/ML (20ML VIAL) ONE (12:37)
[2017-02-23] MEDS ORDERED: PAPAVERINE HCL 30 MG/1 ML 10 ML VIAL NR ONE (12:47)
[2017-02-23] MEDS ORDERED: POVIDONE-IODINE OINTMENT 10% - 28.4 GM TUBE ONE (12:47)
[2017-02-23] MEDS ORDERED: LIDOCAINE HCL 1%, 10 MG/ML (20ML VIAL) INF ONE ×2 (13:47)
--- NOTE | 2017-02-23 14:24 | HP ---
Satellite [facility] - Chief Complaint History of Present Illness: 56 yo male ESRD on HD with AV fistula in left forearm. 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 Patient wants new access to get rid of aneurysms. History Source: Patient Limitations to Obtaining History: No Limitations - Past Medical History Allergies/Adverse Reactions: Allergies Allergy/AdvReac Type Severity Reaction Status Date / Time No Known Drug Allergies Allergy Verified 02/23/17 10:40 Cardiovascular: Yes: CHF (Chronic diastolic HF, Severe Pulm HTN), HTN, Hyperlipdemia, Mitral Insufficiency (s/p MVR (bio)), Pulmonary Hypertension, Other (Severe Tricuspid regurgitation, Endocarditis s/p AVR/MVR, recurrent bacteremia) Pulmonary: Yes: Other (PHTN) Gastrointestinal: Yes: Ascites, Constipation Hepatobiliary: Yes: Hepatitis C Renal/: Yes: Renal Failure, Hemodialysis Heme/Onc: Yes: Anemia Musculoskeletal: Yes: Bursitis (left shoulder pain) - Current Medications Current Medications: Home Medications Medication Instructions Recorded Calcium Acetate 667 mg PO TID 09/11/16 Cinacalcet HCl [Sensipar] 30 mg PO DAILY 09/11/16 Folic Acid 1 mg PO DAILY 09/11/16 Gabapentin 100 mg PO DAILY 09/11/16 Hydralazine HCl 100 mg PO TID 09/11/16 Nifedipine [Nifedical Xl] 60 mg PO HS 09/11/16 Sevelamer Carbonate [Renvela -] 800 mg PO DAILY 09/11/16 Tamsulosin HCl [Flomax -] 0.4 mg PO DAILY 09/11/16 Oxycodone HCl/Acetaminophen 1 each PO Q4H PRN #30 tablet MDD 6 09/15/16 [Percocet 10-325 mg Tablet] tabs Oxycodone HCl [Roxicodone -] 10 mg PO BID PRN #0 tablet MDD 2 12/04/16 Oxycodone HCl/Acetaminophen 1 tab PO Q6H PRN #20 tablet MDD 4 02/23/17 [Percocet 5-325 mg Tablet] Satellite Physical Exam - Physical Examination Vital Signs: Vital Signs Period Temp Pulse Resp BP Sys/Anderson Pulse Ox Last 24 Hr 97.9 F 83 16 116/65 98 General Appearance: Alert & Oriented x3 ENT: Clear Lung: Clear to auscultation Heart: Regular rate & rhythm Abdomen: Soft Extremities: Other (Left fore arm fistula 4-5 cm diameter with skin eschar over aneurysm.) Satellite Impression/Plan - Impression/Plan Impression: Aneurysmal AV fistula with skin changes. Operative Procedure: Revsion of AV fistula. Date to be Performed: 02/23/17
[2017-02-23] MEDS ORDERED: OXYCODONE/APAP 5/325MG COMBO TABLET PO PRN (14:25)
--- NOTE | 2017-02-23 14:27 | OP ---
Operative Note - Note: Operative Date: 02/23/17 Pre-Operative Diagnosis: Aneurysm AV fistula Operation: Revsion of left arm AV fistula with new AV anastomosis. Findings: Large fistula vein ~1 cm, Radial artery 5 mm and tortuous Post-Operative Diagnosis: Same as Pre-op Surgeon: Kirby Larson Anesthesiologist/PETROLEUM GEOLOGIST: Joshua Silverio Anesthesia: Fractional Estimated Blood Loss (mls): 20
[2017-02-23] MEDS ORDERED: ONDANSETRON 4 MG/2 ML VIAL IVPUSH PRN (14:28)
[2017-02-23] MEDS ORDERED: ACETAMINOPHEN 325 MG TABLET (FP) PO PRN (14:55)
[2017-02-23] MEDS ORDERED: oxyCODONE HCL 5 MG TABLET PO PRN (14:55)
[2017-02-23 15:20] VITALS: TEMP 98
[2017-02-23] MEDS ORDERED: oxyCODONE HCL 5 MG TABLET ONE (16:35)
[2017-02-23 17:12] VITALS: BP 120/70; PULSE 83
--- NOTE | 2017-03-04 14:34 | OP ---
DATE OF OPERATION: 02/23/2017 SURGEON: Kirby Larson MD PROCEDURE: Revision of left arm arteriovenous fistula with new arteriovenous anastomosis. PREOPERATIVE DIAGNOSIS: Aneurysm of left arm arteriovenous fistula. POSTOPERATIVE DIAGNOSIS: Aneurysm of left arm arteriovenous fistula. ANESTHESIA: Fractional. ANESTHESIOLOGIST: Joshua Silverio MD OPERATIVE FINDINGS: The left radiocephalic fistula was enlarged in the forearm to greater than 1 cm in diameter. There were several larger aneurysmal areas containing thrombus. The radial artery in the midforearm was about 5 mm in diameter and tortuous. OPERATIVE PROCEDURE: Following routine patient identification with side and site verification, intravenous sedation was established. The left arm was prepped with ChloraPrep. Xylocaine 1% was infiltrated just proximal to the aneurysm and a transverse skin incision was made. The underlying vein was sharply dissected and secured with a vessel loop. Bleeding was controlled with cautery. The wound was then deepened beneath the vein and the radial artery identified. This was mobilized with sharp dissection and encircled proximally and distally with vessel loops. Side branches were ligated with silk ties and divided. The vein was then occluded with vascular clamps and amputated just proximal to the aneurysm. The distal end of the vein was closed with a running suture of 5-0 Prolene. The proximal vein was flushed with heparin-saline solution. The radial artery was occluded with bulldog clamps and opened on exposed surface with a 6-mm arteriotomy. The end of the vein which was greater than 6 mm was closed along one side with 6-0 Prolene to reduce the diameter for anastomosis. The remaining opening was then anastomosed end-to-side with the artery with a running suture of 6-0 Prolene. Upon completion of the suture line, the artery was allowed to back bleed and flush and the vein was flushed with heparin solution. Suture line was completed and all vessels were released. There was good flow through the anastomosis with a palpable thrill in the vein proximally. Bleeding from the suture lines was controlled with Surgicel. When hemostasis was achieved, the wounds were irrigated and closed with interrupted suture of 3-0 Vicryl and skin tony. A sterile dressing was applied and the patient was taken to the recovery area in stable condition. Torres SNOWDEN/[id number]
== END 2017-02-23 17:00 | disposition home or self-care (01) ==
LOC: JASU-SURG 09:47
PROVIDERS: ATTEND Surgery
PROC: 031C0ZF Bypass Left Radial Artery to Lower Arm Vein, Open Approach (ICD-10-PCS; principal; 2017-02-23 12:00)
DX: I13.2 Hypertensive heart and chronic kidney disease with heart failure and with stage 5 chronic kidney disease, or end stage renal disease (principal); I27.2 Other secondary pulmonary hypertension; I36.1 Nonrheumatic tricuspid (valve) insufficiency; I50.22 Chronic systolic (congestive) heart failure; N18.6 End stage renal disease; Z99.2 Dependence on renal dialysis; Z95.2 Presence of prosthetic heart valve
CPT/HCPCS: 36415; 84132; 94760; J1644

== ENCOUNTER 2017-04-22 07:52 | Emergency (ER) | payer OTHER ==
[2017-04-22 07:59] VITALS: PULSE 79; BMI 18.6
--- NOTE | 2017-04-22 09:28 | PDOC ---
History of Present Illness - General Chief Complaint: Dialysis Shunt Problem Stated Complaint: PCP SENT ARM PAIN Time Seen by Provider: 04/22/17 08:33 History Source: Patient Exam Limitations: No Limitations - History of Present Illness Initial Comments: 04/22/17 09:22 Patient is a 56-year-old male with past medical history of end-stage renal failure on dialysis who presents to the emergency department today complaining of left arm pain. Patient states that he has been having pain in the area of his second fistula on his left forearm. Patient states that the pain is been increasing over the last week. He states that he's been having issues with the second site for "a will now ". Patient states that he was last dialyzed yesterday from the AV fistula in his left AC. His vascular surgeon is Dr. Larson, his primary care doctor is Dr. Omar Mae. Patient states that Dr. Larson requested that he come to the ER for possible admission and surgery on the second fistula site. Denies fevers, chills, weakness, nausea, vomiting, diarrhea, cough, chest pain, shortness of breath and numbness and tingling. Past History - Travel Traveled outside of the country in the last 30 days: No Close contact w/someone who was outside of country & ill: No - Past Medical History Allergies/Adverse Reactions: Allergies Allergy/AdvReac Type Severity Reaction Status Date / Time CONTRAST Allergy Hives Uncoded 04/22/17 07:59 Home Medications: Ambulatory Orders Calcium Acetate 667 mg PO TID 09/11/16 Folic Acid 1 mg PO DAILY 09/11/16 Sevelamer Carbonate [Renvela -] 1,600 mg PO BID 09/11/16 Tamsulosin HCl [Flomax -] 0.4 mg PO DAILY 09/11/16 Albuterol Sulfate 0.042% [Ventolin 0.042TRENGTH) -] 1 amp NEB TID PRN 04/22/17 Cyclobenzaprine HCl [Flexeril -] 10 mg PO HS 04/22/17 Fluticasone Prop 0.05% Nasal [Flonase -] 1 spray NS PRN 04/22/17 Isosorbide Mononitrate 30 mg PO ASDIR 04/22/17 Non-Formulary 20 - 100 puff .ROUTE TID PRN 04/22/17 Oxycodone HCl/Acetaminophen [Percocet 10-325 mg Tablet] 1 each PO QID PRN Oxycodone HCl/Acetaminophen [Percocet 5-325 mg Tablet] 1 tab PO Q6H PRN #15 tablet MDD 4 04/22/17 Anemia: Yes Asthma: Yes Cancer: No Cardiac Disorders: Yes CVA: No COPD: No CHF: No Dementia: No Diabetes: No Dialysis: Yes () GI Disorders: Yes Disorders: Yes (ENLARGED PROSTATE) HTN: Yes Hypercholesterolemia: Yes Liver Disease: No Suicide Attempt (Hx): No Seizures: No Thyroid Disease: No - Surgical History Abdominal Surgery: No Appendectomy: No Cardiac Surgery: Yes (2 VALVES REPLACED 04/2015) Cholecystectomy: No Lung Surgery: Yes (h/o MRSA pleural tissue) - Immunization History Immunization Up to Date: No - Psycho/Social/Smoking Cessation Hx Anxiety: No Suicidal Ideation: No Smoking Status: Yes Smoking History: Current every day smoker Have you smoked in the past 12 months: Yes Number of Cigarettes Smoked Daily: 3 Information on smoking cessation initiated: No 'Breaking Loose' booklet given: 07/03/16 Hx Alcohol Use: No Drug/Substance Use Hx: No Substance Use Type: None Hx Substance Use Treatment: Yes (rehab, detox) Review of Systems - Review of Systems Able to Perform ROS?: Yes Is the patient limited [place]arian proficient: No Constitutional: No: Chills, Fever, Malaise, Weakness Respiratory: No: Cough, Shortness of Breath, Wheezing Cardiac (ROS): No: Chest Pain, Edema, Lightheadedness, Palpitations, Chest Tightness ABD/GI: No: Diarrhea, Nausea, Vomiting Integumentary: Yes: Other (1+ edema to the L arm. Two lumps over previous AV fistula sites. Lump closest to the L AC is approximately 2x2cm round and raised approxiamtely 2cm. ) Neurological: No: Numbness, Paresthesia, Weakness, Dizziness All Other Systems: Reviewed and Negative *Physical Exam - Vital Signs Last Vital Signs Temp Pulse Resp BP Pulse Ox 79 20 117/1 98 04/22/17 07:54 04/22/17 07:54 04/22/17 07:54 04/22/17 07:54 - Physical Exam Comments: 04/22/17 09:28 GENERAL: Well developed, well nourished. AAOx3. No acute distress. Laying in exam bed resting peacefully. HEENT: Normocephalic, atraumatic. PERRLA, EOMI. No conjunctival pallor. Sclera are non- icteric. Moist mucous membranes. Oropharynx is clear. NECK: Supple. Full ROM. No JVD. Carotid pulses 2+ and symmetric, without bruits. No thyromegaly. No lymphadenopathy. CARDIOVASCULAR: Regular rate and rhythm. No murmurs, rubs, or gallops. Distal pulses are 2+ and symmetric. PULMONARY: No evidence of respiratory distress. Lungs clear to auscultation bilaterally. No wheezing, rales or rhonchi. ABDOMINAL: Soft. Non-tender. Non-distended. No rebound or guarding. No organomegaly. Normoactive bowel sounds. MUSCULOSKELETAL Normal range of motion at all joints. No bony deformities or tenderness. No CVA tenderness. EXTREMITIES: 3 AV fistula sites on the L forearm. AV fistula in L AC with palpable/audible thrill. AV Fistula site distal to L AC, mid forarm: [id number] lump raised approximately 2cm, palpable/audible thrill. 3rd AV fistula just proximal to the L wrist, [id number] round lump raised approximately 1cm. Palpiable/audible thrill, however, sounds more distant than other two sites. 0.5cm round area of scabbing on the top of the fistula. Mild 1+ edema to the L hand. No cyanosis. No clubbing. No calf tenderness. SKIN: Warm and dry. Normal capillary refill. No rashes. No jaundice. NEUROLOGICAL: Alert, awake, appropriate. Cranial nerves 2-12 intact. No deficits to light touch and temperature in face, upper extremities and lower extremities. No motor deficits in the in face, upper extremities and lower extremities. Normoreflexic in the upper and lower extremities. Normal speech. Toes are down- going bilaterally. Gait is normal without ataxia. PSYCHIATRIC: Cooperative. Good eye contact. Appropriate mood and affect. ED Treatment Course - LABORATORY CBC & Chemistry Diagram: 04/22/17 09:30 04/22/17 09:30 - RADIOLOGY Radiology Studies Ordered: Category Date Time Status CHEST PA & LAT [RAD] Stat Radiology 04/22/17 08:49 Ordered DUPLEX ART. UPPER COMPL US [US] Stat Ultrasound 04/22/17 08:53 Ordered Medical Decision Making - Medical Decision Making 04/22/17 09:34 Patient is a 56-year-old male with past medical history of end-stage renal failure on dialysis who presents to the emergency department today complaining of left arm pain. VVS, afebrile. Left arm appears slightly edematous with 2 large lumps over the old AV fistula sites. Patient has no other complaints at this time other than some mild left arm pain. Spoke with Dr. Larson who recommends ultrasound of the shunt at this time. Also recommends preop labs in case surgical intervention is needed. Last dialysis was 04/21/17. 1. CBC, CMP, PT/INR, type and screen, EKG, CXR 2.ultrasound of the left forearm for shunt patency 3.reevaluate 04/22/17 11:56 EKG: sinus rhythm with occasional PACs', incomplete RBBB, normal intervals, inverted T waves in II, III, aVF. No other ST-T wave evaluations. This EKG is unchanged from an EKG from 12/01/16. Doppler US of L Arm: There is thrombosis of the AV fistula at both the upper and mid puncture sites. There is no evidence of hematoma formation about the specialist at the sites. There is patency of the AV fistula below the puncture sites within the forearm, however there is abnormal low velocity flow demonstrated within the fistula at this site. Again there is no evidence of hematoma formation about the fistula. Clinical correlation as the nature of prior surgeries is recommended. Contrast venography may be also warranted at this time. Impression: Status post 3 AP fistulas within the left upper extremity. There is thrombosis of 2 fistulas and weak flow within the third clinical correlation follow-up are recommended please see the above discussion Will place another call to Dr. Larson at this time to discuss results. 04/22/17 13:[address] Larson 04/22/17 14:[address] Larson. 04/22/17 14:38 Dr. Larson came bedside to evaluate the pt and spoke with the pt. at length regarding surgery to fix his blocked fistulas. Discussed the importance of surgery as the scabs on his fistula have the potential to bleed with the potential for massive, life-threatening hemorrhage. Pt. is refusing surgery at this time. He states that he is "not mentally prepared" for the surgery and would like a week to think about it. I also discussed with the pt. the need for this surgery as his shunts show poor perfusion and that he may have trouble with dialysis. I also explained that he could bleed to if one of the scabs over his fistulas breaks. Pt. states that he understands all the risks, but he does not want to stay for surgery and would like to go home at this time. Will have the patient sign out AMA. He is okay with this discharge plan. He states that he plans on coming back in one week for surgery. *DC/Admit/Observation/Transfer Diagnosis at time of Disposition: ESRD on hemodialysis, Coronary arteriosclerosis in [place] artery - Discharge Dispostion Disposition: AGAINST MEDICAL ADVICE Condition at time of disposition: Guarded - Prescriptions Prescriptions: Oxycodone HCl/Acetaminophen [Percocet 5-325 mg Tablet] 1 tab PO Q6H PRN #15 tablet MDD 4 PRN Reason: Pain - Referrals Referrals: Omar Hernandez MD [Primary Care Provider] - Kirby Larson MD [Staff Physician] - - Patient Instructions Additional Instructions: You are leaving against medical advice today. It is recommended that you have surgery to fix your blocked shunts that are needed for dialysis. Dr. Larson spoke with you today. You need to follow up with him in his office as soon as possible to schedule surgery. You could by not having surgery, especially if one of your shunts bleeds. You need to continue with your regularly scheduled dialysis visits. Return to the ED if you have worsening pain, bleeding, or have issues with dialysis or any other changes in your symptoms. Print Language: CONGOLESE
[2017-04-22 09:48] LABS: BASOPHIL 0.8 % (0-2.0); EOSINOPHIL 5.3 % (0-4.5); MCH 31.1 pg (25.7-33.7); MCHC 31.9 g/dl (32.0-35.9); MEAN CELL VOLUME 97.5 fl (80-96); MEAN PLT VOLUME 10.2 fl (7.5-11.1); NEUTROPHILS 72.3 % (42.8-82.8); PLATELET COUNT 129 K/MM3 (134-434); RDW 17.2 % (11.9-15.9); WHITE BLOOD COUNT 4.8 K/mm3 (4.0-10.0)
[2017-04-22 10:00] LABS: ANION GAP 8 (8-16); BILIRUBIN,TOTAL 0.4 mg/dL (0.2-1.0); CALCIUM 8.2 mg/dL (8.5-10.1); CO2 26 mmol/L (21-32); GLUCOSE,RANDOM 92 mg/dL (74-106); SGPT/ALT 23 U/L (12-78); TOT PROT 5.4 g/dl (6.4-8.2)
[2017-04-22 10:02] LABS: ALK PHOS 91 U/L (45-117); SGOT/AST 38 U/L (15-37)
[2017-04-22 10:17] LABS: INR 1.22 (0.82-1.09); PROTHROMBIN TIME (PATIENT) 13.5 SEC (9.98-11.88)
[2017-04-22 10:19] LABS: CREATININE 10.5 mg/dL (0.7-1.3)
--- NOTE | 2017-04-22 12:14 | PDOC ---
*Physical Exam - Vital Signs Last Vital Signs Temp Pulse Resp BP Pulse Ox 79 20 117/1 98 04/22/17 07:54 04/22/17 07:54 04/22/17 07:54 04/22/17 07:54 ED Treatment Course - LABORATORY CBC & Chemistry Diagram: 04/22/17 09:30 04/22/17 09:30 - ADDITIONAL ORDERS Additional order review: Laboratory Results 04/22/17 04/22/17 04/22/17 09:30 09:30 09:30 INR 1.22 H Sodium 143 Potassium 5.5 H D Chloride 109 H Carbon Dioxide 26 Anion Gap 8 BUN 65 H D Creatinine 10.5 H* D Creat Clearance w eGFR 5.28 Random Glucose 92 Calcium 8.2 L Total Bilirubin 0.4 D AST 38 H D ALT 23 D Alkaline Phosphatase 91 Total Protein 5.4 L Albumin 2.0 L Blood Type Cancelled Antibody Screen Cancelled Spec Expiration Date Cancelled 04/22/17 09:30 RBC 4.34 D MCV 97.5 H MCHC 31.9 L RDW 17.2 H D MPV 10.2 D Neutrophils % 72.3 Lymphocytes % 8.8 D Monocytes % 12.8 H Eosinophils % 5.3 H Basophils % 0.8 Medical Decision Making - Medical Decision Making 04/22/17 12:12 Patient seen and examined with BEVERLEY Abad. Agree with assessment and plan. Summary as follows: 56-year-old male presents for evaluation of 3 fistulas on left upper extremity. Patient sent in by Dr. Larson. Ultrasound of fistulas shows thrombosis in the proximal two fistulas and weak flow in the third and distal fistula. We have sent a page to Dr. Larson and are currently awaiting a call back. We discussed findings with patient. 04/22/17 14:39 Dr. Larson at the bedside, who informed patient that he needs surgical repair in order to further be able to get dialysis. The patient currently adamantly refuses to stay and get surgery to repair his fistula despite Dr. Larson's recommendation. Dr. Larson offered to have it fixed today but the patient does not want to have his fistula operated on today and wants a week to "get his life in order". We discussed with the patient that he needs a working fistula in order to be able to consistently get dialysis. We also informed patient that skipping dialysis is incredibly dangerous and can be deadly for many reasons including arrhythmia, electrolyte abnormalities, fluid overload. The patient is clinically sober, free from distracting injury, appears to have intact insight and judgment and reason and in my opinion has the capacity to make decisions. The patient presents with 2 thrombosed fistulas and evidence of weak flow in the 3rd fistula. I have explained that I am concerned that this may represent a non-working fistula and thus he may not be able to get dialysis ; he has verbalized an understanding of my concerns. I have told the patient that while his labs here were normal, he could still develop abnormal labs when he leaves. I have discussed the need for admission to the hospital and need for repair or replacement of his fistula in order to be able to get dialysis. I have told the patient that if he leaves and has no working fistula to get dialysis, he could get much worse, could become critically ill, and could possibly become disabled or . I have offered to give the patient more pain medication. I have asked them to stay in the hospital for serial fistula exams. The patient is not willing to undergo a procedure to repair or replace his fistula. He is unwilling to stay overnight for monitoring. He is refusing any further care and is leaving against medical advice. I am unable to convince the patient to stay, I have asked them to return as soon as possible to complete their evaluation. I have spoken with coverage for their primary care doctor in regards to their thrombosed fistulas and the second fistula with weak flow. I have answered all their questions. *DC/Admit/Observation/Transfer Diagnosis at time of Disposition: ESRD on hemodialysis, Coronary arteriosclerosis in [place] artery - Discharge Dispostion Disposition: AGAINST MEDICAL ADVICE Condition at time of disposition: Guarded - Prescriptions Prescriptions: Oxycodone HCl/Acetaminophen [Percocet 5-325 mg Tablet] 1 tab PO Q6H PRN #15 tablet MDD 4 PRN Reason: Pain - Referrals Referrals: Omar Hernandez MD [Primary Care Provider] - Kirby Larson MD [Staff Physician] - - Patient Instructions Additional Instructions: You are leaving against medical advice today. It is recommended that you have surgery to fix your blocked shunts that are needed for dialysis. Dr. Larson spoke with you today. You need to follow up with him in his office as soon as possible to schedule surgery. You could by not having surgery, especially if one of your shunts bleeds. You need to continue with your regularly scheduled dialysis visits. Return to the ED if you have worsening pain, bleeding, or have issues with dialysis or any other changes in your symptoms. Print Language: CHILEAN
[2017-04-22 13:35] VITALS: BP 110/57; TEMP 97.7
--- NOTE | 2017-04-22 16:40 | EKG ---
Test Reason : Blood Pressure : / mmHG Vent. Rate : 071 BPM Atrial Rate : 071 BPM P-R Int : 176 ms QRS Dur : 092 ms QT Int : 424 ms P-R-T Axes : 044 152 -63 degrees QTc Int : 460 ms SINUS RHYTHM WITH PREMATURE ATRIAL COMPLEXES INCOMPLETE RIGHT BUNDLE BRANCH BLOCK , PLUS RIGHT VENTRICULAR HYPERTROPHY T WAVE ABNORMALITY, CONSIDER INFERIOR ISCHEMIA ABNORMAL ECG WHEN COMPARED WITH ECG OF 01-DEC-2016 12:24, SINUS RHYTHM HAS REPLACED ATRIAL FLUTTER BORDERLINE CRITERIA FOR INFERIOR INFARCT ARE NO LONGER PRESENT ST NO LONGER DEPRESSED IN INFERIOR LEADS T WAVE INVERSION NOW EVIDENT IN INFERIOR LEADS T WAVE INVERSION NOW EVIDENT IN LATERAL LEADS Confirmed by JEIMY KEEN MD ([id number]) on 04/22/2017 4:40:04 PM Referred By: Confirmed By:JEIMY KEEN MD
== END 2017-04-22 15:08 | disposition left against medical advice (07) ==
LOC: JER 07:52
DX: T82.590A Other mechanical complication of surgically created arteriovenous fistula, initial encounter (principal); Y92.9 Unspecified place or not applicable; Y83.8 Other surgical procedures as the cause of abnormal reaction of the patient, or of later complication, without mention of misadventure at the time of the procedure; I12.0 Hypertensive chronic kidney disease with stage 5 chronic kidney disease or end stage renal disease; N18.6 End stage renal disease; Z99.2 Dependence on renal dialysis; D64.9 Anemia, unspecified; J45.909 Unspecified asthma, uncomplicated; N40.0 Benign prostatic hyperplasia without lower urinary tract symptoms; E78.00 Pure hypercholesterolemia, unspecified; F17.210 Nicotine dependence, cigarettes, uncomplicated; I25.10 Atherosclerotic heart disease of native coronary artery without angina pectoris; Z91.041 Radiographic dye allergy status; Z95.2 Presence of prosthetic heart valve
CPT/HCPCS: 36415; 71020-TC; 80053; 85025; 85610; 86850; 86900; 86901; 93005; 93010; 93930; 99284-25

== ENCOUNTER 2017-05-12 12:14 | Inpatient (IN) | payer OTHER ==
[2017-05-12 16:05] LABS: BASOPHIL 1.1 % (0-2.0); MCH 31.5 pg (25.7-33.7); MCHC 32.8 g/dl (32.0-35.9); MEAN CELL VOLUME 96.1 fl (80-96); MEAN PLT VOLUME 9.8 fl (7.5-11.1); NEUTROPHILS 71.6 % (42.8-82.8); PLATELET COUNT 131 K/MM3 (134-434); RDW 16.6 % (11.9-15.9); WHITE BLOOD COUNT 5.9 K/mm3 (4.0-10.0)
--- NOTE | 2017-05-12 16:25 | PDOC ---
History of Present Illness - General Chief Complaint: Blood Pressure Problem Stated Complaint: LOW BP (PCP SENT) Time Seen by Provider: 05/12/17 15:29 History Source: Patient - History of Present Illness Timing/Duration: other Associated Symptoms: reports: shortness of breath. denies: chest pain, fever/ chills, nausea/vomiting Past History - Past Medical History Allergies/Adverse Reactions: Allergies Allergy/AdvReac Type Severity Reaction Status Date / Time CONTRAST Allergy Hives Uncoded 05/12/17 12:23 Home Medications: Ambulatory Orders Calcium Acetate 667 mg PO TID 09/11/16 Folic Acid 1 mg PO DAILY 09/11/16 Sevelamer Carbonate [Renvela -] 1,600 mg PO BID 09/11/16 Albuterol Sulfate 0.042% [Ventolin 0.042TRENGTH) -] 1 amp NEB TID PRN 04/22/17 Cyclobenzaprine HCl [Flexeril -] 10 mg PO HS 04/22/17 Fluticasone Prop 0.05% Nasal [Flonase -] 1 spray NS PRN 04/22/17 Isosorbide Mononitrate 30 mg PO ASDIR 04/22/17 Oxycodone HCl/Acetaminophen [Percocet 5-325 mg Tablet] 1 tab PO Q6H PRN #15 tablet MDD 4 04/22/17 Anemia: Yes Asthma: Yes Cancer: No Cardiac Disorders: Yes (2X VALVE REPLACEMENT) CVA: No COPD: No CHF: No Dementia: No Diabetes: No Dialysis: Yes (--THU LEFT AV FISTULA) GI Disorders: Yes Disorders: Yes (ENLARGED PROSTATE) HTN: Yes Hypercholesterolemia: Yes Liver Disease: No Suicide Attempt (Hx): No Seizures: No Thyroid Disease: No - Surgical History Abdominal Surgery: No Appendectomy: No Cardiac Surgery: Yes (2 VALVES REPLACED 04/2015) Cholecystectomy: No Lung Surgery: Yes (h/o MRSA pleural tissue) - Immunization History Immunization Up to Date: No - Psycho/Social/Smoking Cessation Hx Anxiety: No Suicidal Ideation: No Smoking Status: Yes Smoking History: Current every day smoker Have you smoked in the past 12 months: Yes Number of Cigarettes Smoked Daily: 3 Information on smoking cessation initiated: Yes 'Breaking Loose' booklet given: 05/12/17 Hx Alcohol Use: No Drug/Substance Use Hx: No Substance Use Type: None Hx Substance Use Treatment: Yes (rehab, detox) Review of Systems - Review of Systems Constitutional: No: Chills, Fever Respiratory: Yes: Shortness of Breath. No: Cough Cardiac (ROS): Yes: Lightheadedness. No: Chest Pain, Palpitations, Syncope ABD/GI: No: Constipated, Diarrhea, Nausea, Vomiting Neurological: Yes: Dizziness. No: Headache *Physical Exam - Vital Signs Last Vital Signs Temp Pulse Resp BP Pulse Ox 98.5 F 90 19 111/56 97 05/12/17 12:20 05/12/17 12:20 05/12/17 12:20 05/12/17 12:20 05/12/17 12:20 - Physical Exam General Appearance: Yes: Appropriately Dressed. No: Apparent Distress HEENT: positive: Normal Voice Neck: positive: Supple Respiratory/Chest: positive: Lungs Clear, Normal Breath Sounds. negative: Respiratory Distress Cardiovascular: positive: Regular Rate, S1, S2 Gastrointestinal/Abdominal: positive: Soft. negative: Tender Extremity: positive: Normal Inspection Integumentary: positive: Dry, Warm Neurologic: positive: Fully Oriented, Alert, Normal Mood/Affect ED Treatment Course - LABORATORY CBC & Chemistry Diagram: 05/12/17 16:00 05/12/17 16:00 - RADIOLOGY Radiology Studies Ordered: Category Date Time Status CHEST X-RAY PORTABLE* [RAD] Stat Radiology 05/12/17 15:32 Taken Medical Decision Making - Medical Decision Making 05/12/17 15:52 The patient is a 56-year-old man with a significant past medical history of hypertension, hypersholesterolemia, anemia, MRSA endocarditis status post biologic MVR/AVR, severe pulmonary hypertension, end-stage renal disease (on hemodialysis in [place], [place] on ; last HD on Thursday was held), polysubstance abuse, liver disease with recurrent ascites, untreated Hepatitis C and chronic systolic and diastolic heart failure, chronic SOB and on 3L home O2 per pt, who presents to the emergency department stating that for the past several months, he has "lost vision" in R eye 3 times and has been seen by optho w/ negative w/u. Also c/o intermittent exertional dizziness x several weeks that re-occured today but at rest. States he has seen his lining maker, Dr Clement, who took him off all his BP meds. Pt denies CP, diaphoresis, n/ v. Also c/o his usual SOB that started while in ED. No cough, f/c See exam Recurrent dizziness No CP or acute SOB Stable and well pierce in ED R/o ACS, less likely dissection or PE -ekg -cxr -labs 05/12/17 17:15 Trop 0.08 w/ new TWI in V1-3, new compared to EKG 04/22/17. Pt remains stable in ED w/ no chest pain. Based on chart review, pt has had tropenia on multiple ER visits. 05/12/17 17:38 Case d/w Dr San-as per M.D, if patient is stable and not having chest pain, would not treat as non-STEMI. States new T-wave inversion is possibly from multiple causes, i.e. patient on dialysis vs LVH vs repolarization, etc. States patient has no significant CAD and had normal coronaries on cardiac cath 11/2014 at [facility]. Recommend admitting patient for serial troponins. Will continue to follow in-house 05/12/17 17:41 05/12/17 17:45 Case d/w Dr Gee (coverage for Dr Hernnadez), states pt is no longer followed by Dr Hernandez and that pt should go to service 05/12/17 18:24 05/12/17 18:49 PVCs w/ short runs of vtach on monitor w/ HR as high as 130s. Pt denies CP or SOB at this time and appears comfortable on NC. Currently eating a sandwich. Will rpt EKG at this time and reach out to Dr San once again for recommendation 05/12/17 18:56 05/12/17 19:03 Rpt EKG w/ now upright T waves in V1-3, changed from ekg done earlier. Pt currently NSR at 98 BPM. Cards c/s pending. Hospitalist contacted w/ pt's information but informed me that they are currently involved in a code and will call me back. At this time, pt signed out to TYSON Malik 05/12/17 19:05 05/12/17 19:07 Dr San made aware of PVCs and non-sustained vtach that has since resolved. No recommendations at this time *DC/Admit/Observation/Transfer Diagnosis at time of Disposition: Dizziness - Referrals Referrals: Omar Hernandez MD [Primary Care Provider] -
[2017-05-12 16:42] LABS: ALBUMIN 1.9 g/dl (3.4-5.0); ANION GAP 11 (8-16); BILIRUBIN,TOTAL 0.3 mg/dL (0.2-1.0); CALCIUM 7.8 mg/dL (8.5-10.1); CO2 29 mmol/L (21-32); CREATININE 7.2 mg/dL (0.7-1.3); GLUCOSE,RANDOM 87 mg/dL (74-106); SGOT/AST 27 U/L (15-37); SGPT/ALT 23 U/L (12-78); TOT PROT 5.3 g/dl (6.4-8.2)
[2017-05-12 16:44] LABS: ALK PHOS 105 U/L (45-117); CPK 373 IU/L (39-308); TROPONIN I 0.08 ng/ml (0.00-0.05)
[2017-05-12] MEDS ORDERED: TAMSULOSIN HCL 0.4 MG CAP.ER.24H (FP) ONE (19:33)
--- NOTE | 2017-05-12 19:37 | PDOC ---
*Physical Exam - Vital Signs Last Vital Signs Temp Pulse Resp BP Pulse Ox 98.6 F 87 20 114/79 98 05/12/17 17:00 05/12/17 17:00 05/12/17 17:00 05/12/17 17:00 05/12/17 17:00 - Physical Exam Comments: 05/12/17 19:35 Sign-out received from outgoing ER provider Cruz. Ancillary studies reviewed. Pt interviewed and examined. Briefly, this patient is a 56 yo M with significant PMH with multiple comorbidities including HTN, HLD, anemia, MRSA endocarditis status post biologic MVR/AVR, severe pulmonary hypertension, ESRD (on hemodialysis in [place], [place] on TRS), polysubstance abuse, liver disease with recurrent ascites , untreated Hepatitis C and chronic systolic and diastolic heart failure, chronic SOB, who presents to the ED with c/o "lost vision" the R eye, dizziness x weeks. During course in ED prior to sign out, patient had elevated trops and was unstable on security chief museum with PVCs and short runs of Vtach; however, patient's machine loader MD San was contacted and states that this is not unusual for this patient and he usually does stabilize. Dr. San recommended admission to trend troponins and for observation. At this time patient continues to deny chest pain and and states "I went to dialysis this morning, and I just feel very tired." Patient is currently stable on security chief museum. Patient is concerned he has not received his Flomax today and requests Percocet for chronic shoulder pain. -Flomax po -Percocet po Spoke with hospitalist resident; awaiting confirmation from hospitalist attending if patient will be tele obs vs inpatient. Spoke with hospitalist TYSON Carrasco, patient will be tele obs. 05/12/17 20:48 ED Treatment Course - LABORATORY CBC & Chemistry Diagram: 05/12/17 16:00 05/12/17 16:00 - ADDITIONAL ORDERS Additional order review: Laboratory Results 05/12/17 05/12/17 17:34 16:00 Sodium 142 Potassium 3.7 D Chloride 102 Carbon Dioxide 29 Anion Gap 11 BUN 34 H D Creatinine 7.2 H D Creat Clearance w eGFR 7.98 Random Glucose 87 Calcium 7.8 L Total Bilirubin 0.3 D AST 27 D ALT 23 Alkaline Phosphatase 105 Creatine Kinase 373 H Creatine Kinase Index 1.7 CK-MB (CK-2) 6.558 H Troponin I 0.08 H D B-Natriuretic Peptide 10262.40 H Total Protein 5.3 L Albumin 1.9 L 05/12/17 16:00 RBC 4.38 MCV 96.1 H MCHC 32.8 RDW 16.6 H MPV 9.8 Neutrophils % 71.6 Lymphocytes % 7.4 L Monocytes % 10.9 H Eosinophils % 9.0 H Basophils % 1.1 *DC/Admit/Observation/Transfer Diagnosis at time of Disposition: Dizziness, ESRD on hemodialysis, Acute on chronic combined systolic and diastolic CHF, NYHA class 4, Acute electrocardiogram changes, SVT ( supraventricular tachycardia), Chronic left shoulder pain - Discharge Dispostion Admit: Yes - Referrals Referrals: Omar Hernandez MD [Primary Care Provider] - - Patient Instructions - Post Discharge Activity
[2017-05-12] MEDS ORDERED: TAMSULOSIN HCL 0.4 MG CAP.ER.24H (FP) PO ONE (19:40)
[2017-05-12] MEDS ORDERED: ACETAMINOPHEN 325 MG TABLET (FP) PO ONE (20:00)
[2017-05-12] MEDS ORDERED: oxyCODONE HCL 5 MG TABLET PO ONE (20:00)
[2017-05-12] MEDS ORDERED: ASPIRIN 81 MG CHEWABLE TABLETS PO ONE (20:07)
[2017-05-12] MEDS ORDERED: ALBUTEROL SO4 0.042% IH SOL 1.25 MG/3 ML VIAL.NEB NEB PRN (21:40)
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
[2017-05-13 00:40] VITALS: BMI 21.8
[2017-05-13 01:15] LABS: TROPONIN I 0.09 ng/ml (0.00-0.05)
[2017-05-13] MEDS ORDERED: ACETAMINOPHEN 325 MG TABLET (FP) PO ONE ×2 (01:15→06:15)
[2017-05-13] MEDS ORDERED: oxyCODONE HCL 5 MG TABLET PO ONE ×2 (01:15→06:15)
[2017-05-13 07:22] LABS: BASOPHIL 1.5 % (0-2.0); EOSINOPHIL 10.4 % (0-4.5); MCH 30.9 pg (25.7-33.7); MCHC 32.2 g/dl (32.0-35.9); MEAN CELL VOLUME 95.8 fl (80-96); MEAN PLT VOLUME 9.6 fl (7.5-11.1); NEUTROPHILS 69.8 % (42.8-82.8); PLATELET COUNT 119 K/MM3 (134-434); RDW 16.8 % (11.9-15.9); WHITE BLOOD COUNT 4.5 K/mm3 (4.0-10.0)
[2017-05-13 07:52] LABS: ANION GAP 12 (8-16); CALCIUM 8.1 mg/dL (8.5-10.1); CO2 28 mmol/L (21-32); GLUCOSE,RANDOM 85 mg/dL (74-106); MAGNESIUM 2.2 mg/dL (1.8-2.4)
[2017-05-13 08:05] LABS: PHOSPHOROUS 5.7 mg/dL (2.5-4.9)
[2017-05-13] MEDS: SEVELAMER CARBONATE 800 MG TAB (FP) PO SCH ×2 (08:44→17:16)
[2017-05-13 09:04] LABS: CREATININE 8.4 mg/dL (0.7-1.3)
--- NOTE | 2017-05-13 09:21 | CON.CARD ---
Consult Consult Specialty:: Cardiology Referred by:: Dr. Carrasco Reason for Consultation:: CHF, dizziness - History of Present Illness Chief Complaint: dizziness, shortness of breath. History of Present Illness: 56M with ESRD on HD, chronic HTN, MV and TV repair several years ago at [facility] for Endocarditis, residual ASD from transeptal puncture from that operation , history of cocaine abuse, ascites from right sided CHF and PHTN, ocular "TIA" several months ago now presents to ER with worsening dyspnea on exertion and persistent/worsening dizziness. Denies chest pain, palpitations, syncope. Chronic LE edema. No fever or chills. Denies cough. +PND and orthopnea. He was referred back to [facility] after his TIA for evaluation for closure of ASD, but did not follow up with that recommendation. - History Source History Provided By: Patient, Medical Record - Past Medical History Cardio/Vascular: Yes: CHF (Chronic diastolic HF, Severe Pulm HTN), HTN, Hyperlipdemia, Mitral Insufficiency (s/p MVR (bio)), Pulmonary Hypertension, Other (Severe Tricuspid regurgitation, Endocarditis s/p TVR/MVR, recurrent bacteremia) Pulmonary: Yes: Other (PHTN) Gastrointestinal: Yes: Ascites, Constipation Hepatobiliary: Yes: Hepatitis C Renal/: Yes: Renal Failure, Hemodialysis Psych: Yes: Addictions Musculoskeletal: Yes: Bursitis (left shoulder pain) - Past Surgical History Past Surgical History: Yes: AV Fistula/Graft, Hernia Repair (11/19) - Alcohol/Substance Use Hx Alcohol Use: No History of Substance Use: reports: Cocaine (last use 2 weeks ago), Marijuana - Smoking History Smoking history: Current every day smoker Have you smoked in the past 12 months: Yes Aproximately how many cigarettes per day: 3 - Social History ADL: Independent 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 History of Recent Travel: No Home Medications - Allergies Allergies/Adverse Reactions: Allergies Allergy/AdvReac Type Severity Reaction Status Date / Time Iodinated Contrast- Oral and Allergy Verified 05/12/17 19:45 IV Dye CONTRAST Allergy Hives Uncoded 05/12/17 12:23 - Home Medications Home Medications: Ambulatory Orders Calcium Acetate 667 mg PO TID 09/11/16 Folic Acid 1 mg PO DAILY 09/11/16 Sevelamer Carbonate [Renvela -] 1,600 mg PO BID 09/11/16 Albuterol Sulfate 0.042% [Ventolin 0.042TRENGTH) -] 1 amp NEB TID PRN 04/22/17 Cyclobenzaprine HCl [Flexeril -] 10 mg PO HS 04/22/17 Fluticasone Prop 0.05% Nasal [Flonase -] 1 spray NS PRN 04/22/17 Isosorbide Mononitrate 30 mg PO ASDIR 04/22/17 Oxycodone HCl/Acetaminophen [Percocet 5-325 mg Tablet] 1 tab PO Q6H PRN #15 tablet MDD 4 04/22/17 Family Disease History - Family Disease History Family Disease History: Other: Father ( of kidney failure), Mother (muscle problems), Sister (healthy and living, HTN) Review of Systems Findings/Remarks: See HPI - Review of Systems Cardiovascular: reports: Shortness of Breath Respiratory: reports: SOB on Exertion Neurological: reports: Dizziness - Risk Factors Known Risk Factors: Yes: Hypercholesterolemia, Hypertension, Prior OR /Emb Stroke, Other (ESRD) Vital Signs: Vital Signs Temperature 98.0 F 05/13/17 07:00 Pulse Rate 74 05/13/17 07:00 Respiratory Rate 20 05/13/17 07:00 Blood Pressure 118/74 05/13/17 07:00 O2 Sat by Pulse Oximetry (%) 95 05/13/17 04:04 Constitutional: Yes: Calm Eyes: Yes: Conjunctiva Clear Respiratory: Yes: Other (slight decreased breath sounds at right base, no wheezing.) Gastrointestinal: Yes: Soft Cardiovascular: Yes: Regular Rate and Rhythm JVD: Yes Carotid Bruit: No PMI: Displaced Heart Sounds: Yes: S1, S2 (RRR, loud systolic murmur (chronic) audible throughout precordium) Murmur: Yes: Systolic Murmur Edema: No Neurological: Yes: Alert, Oriented ...Motor Strength: WNL - Other Data Labs, Other Data: CBC, BMP 05/13/17 06:00 05/13/17 06:00 Troponin, BNP 05/13/17 00:00 Troponin I 0.09 H Troponin, BNP 05/13/17 00:00 Troponin I 0.09 H NSR, LVH. Nonspecific T wave changes anterior precordial leads Echo: Pending Holter: Other (TELE: NSR with PVCs and several short self limited runs NSVT (3 beats)) Imaging - Results Chest X-ray: Image Reviewed EKG: Image Reviewed Problem List - Problems (1) Acute on chronic combined systolic and diastolic CHF, NYHA class 4 Code(s): I50.43 - ACUTE ON CHRONIC COMBINED SYSTOLIC AND DIASTOLIC HRT FAIL (2) Dizziness Code(s): R42 - DIZZINESS AND GIDDINESS (3) Elevated troponin I level Code(s): R74.8 - ABNORMAL LEVELS OF OTHER SERUM ENZYMES (4) ESRD on hemodialysis Code(s): N18.6 - END STAGE RENAL DISEASE Z99.2 - DEPENDENCE ON RENAL DIALYSIS Assessment/Plan IMP: Acute on chronic combined systolic and diastolic CHF Dizziness History of MV/TV repair several years ago for endocarditis PHTN ASD ESRD on HD REC: Acute on chronic combined CHF: -Repeat echo today -Volume removal with HD -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 Ho -Echo (known residual ASD) for which closure evaluation was planned. MVR/TVR/PHTN: -residual moderate to severe MR and TR with PHTN -Repeat echo -Volume removal with HD ESRD: -Regular HD
[2017-05-13] MEDS: CALCIUM ACETATE 667 MG CAPSULE (FP) PO SCH ×3 (09:45→17:15)
[2017-05-13] MEDS: FOLIC ACID 1 MG TABLET (FP) PO SCH (09:45)
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
[2017-05-13] MEDS ORDERED: MECLIZINE HCL 12.5 MG TABLET PO PRN (10:48)
[2017-05-13] MEDS: METOPROLOL SUCCINATE 25 MG TAB.SR.24H (FP) PO SCH (10:54)
[2017-05-13] MEDS ORDERED: ISOSORBIDE MONONITRATE 10 MG TABLET PO SCH (11:45)
[2017-05-13] MEDS ORDERED: FLUTICASONE PROP 0.05% 16 GM NASAL SPRAY NS SCH (11:45)
[2017-05-13 13:19] LABS: TROPONIN I 0.09 ng/ml (0.00-0.05)
--- NOTE | 2017-05-13 14:20 | CON.NEP ---
Consult Consult Specialty:: Nephrology ([place]) Referred by:: Vonda Moody Reason for Consultation:: ESRD on HD - History of Present Illness Chief Complaint: SOB History of Present Illness: This is a 56 year old Gentleman with PMhx of ESRD on HD (TTS at [facility]), CHF, Hypertension, MV/TV repair, Hx of Endocarditis who presented with complaints of SOB. Pt reports that he has been experiencing SOB for the past several months. Denies any CP, Abd Pain, N/V/D. Pt reports compliance with all HD sessions, fluid and Na restrictions. Reprots that his BP has been low and thus they have not been able to remove as much fluid with HD. Last dialysis was yesterday. - History Source History Provided By: Patient Limitations to Obtaining History: No Limitations - Past Medical History Cardio/Vascular: Yes: CHF (Chronic diastolic HF, Severe Pulm HTN), HTN, Hyperlipdemia, Mitral Insufficiency (s/p MVR (bio)), Pulmonary Hypertension, Other (Severe Tricuspid regurgitation, Endocarditis s/p TVR/MVR, recurrent bacteremia) Pulmonary: Yes: Other (PHTN) Gastrointestinal: Yes: Ascites, Constipation Hepatobiliary: Yes: Hepatitis C Renal/: Yes: Renal Failure, Hemodialysis Psych: Yes: Addictions Musculoskeletal: Yes: Bursitis (left shoulder pain) - Past Surgical History Past Surgical History: Yes: AV Fistula/Graft, Hernia Repair (11/19) - Alcohol/Substance Use Hx Alcohol Use: No History of Substance Use: reports: Cocaine (last use 2 weeks ago), Marijuana - Smoking History Smoking history: Current every day smoker Have you smoked in the past 12 months: Yes Aproximately how many cigarettes per day: 3 - Social History ADL: Independent 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 History of Recent Travel: No Home Medications - Allergies Allergies/Adverse Reactions: Allergies Allergy/AdvReac Type Severity Reaction Status Date / Time Iodinated Contrast- Oral and Allergy Verified 05/12/17 19:45 IV Dye CONTRAST Allergy Hives Uncoded 05/12/17 12:23 - Home Medications Home Medications: Ambulatory Orders Calcium Acetate 667 mg PO TID 09/11/16 Folic Acid 1 mg PO DAILY 09/11/16 Sevelamer Carbonate [Renvela -] 1,600 mg PO BID 09/11/16 Albuterol Sulfate 0.042% [Ventolin 0.042TRENGTH) -] 1 amp NEB TID PRN 04/22/17 Cyclobenzaprine HCl [Flexeril -] 10 mg PO HS 04/22/17 Fluticasone Prop 0.05% Nasal [Flonase -] 1 spray NS PRN 04/22/17 Isosorbide Mononitrate 30 mg PO ASDIR 04/22/17 Oxycodone HCl/Acetaminophen [Percocet 5-325 mg Tablet] 1 tab PO Q6H PRN #15 tablet MDD 4 04/22/17 Family Disease History - Family Disease History Family Disease History: Other: Father ( of kidney failure), Mother (muscle problems), Sister (healthy and living, HTN) Review of Systems - Review of Systems Constitutional: reports: No Symptoms Eyes: reports: No Symptoms HENT: reports: No Symptoms Neck: reports: No Symptoms Cardiovascular: reports: Edema, Shortness of Breath Respiratory: reports: Orthopnea, SOB, SOB on Exertion. denies: Cough, Wheezing Gastrointestinal: reports: No Symptoms Genitourinary: reports: No Symptoms Musculoskeletal: reports: No Symptoms Integumentary: reports: No Symptoms Neurological: reports: No Symptoms Nephrology Consult - Height Height: 6 ft 2 in - Weight Weight: 170 lb 3.2 oz - BMI Body Mass Index (BMI): 21.8 - Lab Results CBC,BMP: CBC, BMP 05/13/17 06:00 05/13/17 06:00 Anion Gap: Anion Gap Anion Gap 12 (8-16) 05/13/17 06:00 - Imaging Chest X-ray: Report Reviewed - Physical Examination Vital Signs: Vital Signs Temperature 97.7 F 05/13/17 09:00 Pulse Rate 80 05/13/17 09:00 Respiratory Rate 20 05/13/17 09:00 Blood Pressure 118/58 05/13/17 09:00 O2 Sat by Pulse Oximetry (%) 95 05/13/17 09:00 Constitutional: Yes: No Distress, Calm Eyes: Yes: Conjunctiva Clear HENT: Yes: Atraumatic, Normocephalic Neck: Yes: Supple Cardiovascular: Yes: Regular Rate and Rhythm, Murmur. No: Rub Respiratory: Yes: Regular, Diminished, Rales. No: Rhonchi, Wheezes Gastrointestinal: Yes: Normal Bowel Sounds, Soft Renal/: No: CVA Tenderness - Left, CVA Tenderness - Right, Pride Present Access for Hemodialysis: AV Fistula (some scabs seen on top of pseudoanueryms) Edema: Yes Edema: LLE: 1+, RLE: 1+ Neurological: Yes: Alert, Oriented Problem List - Problems (1) HTN (hypertension) Code(s): I10 - ESSENTIAL (PRIMARY) HYPERTENSION (2) CHF (congestive heart failure) Code(s): I50.9 - HEART FAILURE, UNSPECIFIED (3) ESRD (end stage renal disease) on dialysis Code(s): N18.6 - END STAGE RENAL DISEASE Z99.2 - DEPENDENCE ON RENAL DIALYSIS (4) Anemia in CKD (chronic kidney disease) Code(s): N18.9 - CHRONIC KIDNEY DISEASE, UNSPECIFIED D63.1 - ANEMIA IN CHRONIC KIDNEY DISEASE (5) Renal osteodystrophy Code(s): N25.0 - RENAL OSTEODYSTROPHY (6) H/O mitral valve repair Code(s): Z98.890 - OTHER SPECIFIED POSTPROCEDURAL STATES (7) SOB (shortness of breath) Code(s): R06.02 - SHORTNESS OF BREATH Assessment/Plan 56 year old Gentleman with PMhx of ESRD on HD (TTS at [facility]), CHF, Hypertension, MV/TV repair, Hx of Endocarditis who presented with complaints of SOB. #ESRD on HD with SOB/Volume overload Pt s/p dialysis treatment yesterday offered extra isolated UF session today to which the patient refused Dry weight at HD is 71kg (usually only tolerated 2-2.5kg UF with each dialysis) the risks of worsening dyspnea, hypoxia were made clear to the patient but continues to refuse will arrange for maintenance dialysis tomorrow with UF as tolerated will monitor BP and Tele on HD may need ionotopic agent (i.e Midodrine) to maintain BP with HD #CHF/MV/TV Repair Cardiology following Started BB Monitor volume status Fluid/Na restriction #Renal Osteodystrophy Continue Phos binder with meals Goal Phos < 4.5 #CKD Related Anemia Hgb is at hold no MARCO ANTONIO at this time Trend CBC Thank you Will follow Abdirashid Guthrie DO
--- NOTE | 2017-05-13 14:55 | EKG ---
Test Reason : Blood Pressure : / mmHG Vent. Rate : 090 BPM Atrial Rate : 090 BPM P-R Int : 206 ms QRS Dur : 090 ms QT Int : 386 ms P-R-T Axes : 076 152 -14 degrees QTc Int : 472 ms SINUS RHYTHM WITH OCCASIONAL PREMATURE VENTRICULAR COMPLEXES AND PREMATURE ATRIAL COMPLEXES POSSIBLE LEFT ATRIAL ENLARGEMENT RIGHT VENTRICULAR HYPERTROPHY WITH REPOLARIZATION ABNORMALITY LATERAL INFARCT (CITED ON OR BEFORE 12-MAY-2017) ABNORMAL ECG WHEN COMPARED WITH ECG OF 12-MAY-2017 16:07, PREMATURE ATRIAL COMPLEXES ARE NOW PRESENT Confirmed by PARAS LEIGH, MENDY ([id number]) on 05/13/2017 2:54:44 PM Referred By: Confirmed By:MENDY CRAIN MD
--- NOTE | 2017-05-13 18:20 | PN ---
Physical Exam: SUBJECTIVE: Patient seen and examined. He says he will let us know when he has chest pain and we don't have to ask and is refusing HD today, says he will be fine. Denies SOB, chest pain currently. Events: - X2 bursts SVT ~10beats 10am OBJECTIVE: Vital Signs Period Temp Pulse Resp BP Sys/Anderson Pulse Ox Last 24 Hr 97.7 F-98.0 F 18-88 20-20 109-134/58-84 95-95 PE Neuro: alert, awake, cn 2-12intact Pulm: clear anteriorly CV: s1 s2 denies cp +mumur Abd: s nt nd + bs Ext: LUE AVF with scabs Laboratory Results - last 24 hr 05/13/17 05/13/17 05/13/17 00:00 06:00 06:00 WBC 4.5 RBC 4.14 Hgb 12.8 Hct 39.7 MCV 95.8 MCH 30.9 MCHC 32.2 RDW 16.8 H Plt Count 119 L MPV 9.6 Neutrophils % 69.8 Lymphocytes % 8.6 Monocytes % 9.7 Eosinophils % 10.4 H Basophils % 1.5 Sodium 142 Potassium 4.1 Chloride 102 Carbon Dioxide 28 Anion Gap 12 BUN 43 H D Creatinine 8.4 H* Random Glucose 85 Calcium 8.1 L Phosphorus 5.7 H Magnesium 2.2 Creatine Kinase 299 Creatine Kinase Index 1.6 CK-MB (CK-2) 5.080 H Troponin I 0.09 H 05/13/17 06:00 WBC RBC Hgb Hct MCV MCH MCHC RDW Plt Count MPV Neutrophils % Lymphocytes % Monocytes % Eosinophils % Basophils % Sodium Potassium Chloride Carbon Dioxide Anion Gap BUN Creatinine Random Glucose Calcium Phosphorus Magnesium Creatine Kinase 261 Creatine Kinase Index 2.0 CK-MB (CK-2) 5.355 H Troponin I 0.09 H Active Medications Generic Name Dose Route Start Last Admin Trade Name Freq PRN Reason Stop Dose Admin Albuterol Sulfate 1 amp 05/12/17 21:40 Ventolin 0.042trength) - NEB TID PRN SHORT OF BREATH/WHEEZING Calcium Acetate 667 mg 05/13/17 08:00 05/13/17 17:15 Phoslo - PO 667 mg TIDCM MONAE Administration Cyclobenzaprine HCl 10 mg 05/13/17 22:00 Flexeril - PO HS MONAE Fluticasone Propionate 1 spray 05/13/17 11:45 Flonase - NS PRN MONAE Folic Acid 1 mg 05/13/17 10:00 05/13/17 09:45 Folic Acid - PO 1 mg DAILY MONAE Administration Isosorbide Mononitrate 30 mg 05/14/17 10:00 Ismo - PO DAILY MONAE Meclizine HCl 12.5 mg 05/13/17 10:48 Antivert - PO TID PRN VERTIGO Metoprolol Succinate 25 mg 05/13/17 10:30 05/13/17 10:54 Toprol Xl - PO 25 mg DAILY MONAE Administration Midodrine 10 mg 05/14/17 08:00 Proamatine - PO 05/14/17 08:01 ONCE ONE Sevelamer Carbonate 1,600 mg 05/13/17 08:00 05/13/17 17:16 Renvela - PO 1,600 mg BID@0800,1730 MONAE Administration Assessment: 56 year old male with PMhx of ESRD on HD (TTS at [facility]), CHF, Hypertension, MV/TV repair, MRSA endocarditis s/p Bio AVR/MVR 2014 at [facility], polysubstance abuse, admitted with dizziness and SOB. Plan: 1. ESRD on HD with SOB/Volume overload - Pt states unable to remove fluid due to hypotension - Refused extra HD today - For HD tomorrow - Hold BP meds prior to HD, if needed start midodrine - Maintain telemetry monitoring 2. Acute on chronic diastolic CHF - Trops flat 0.09, likely demand from volume overload - Start low dose toprol xl 25mg for svt - Isosorbide mononitirate 30mg daily 3. 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 Persistent lightheadedness - Head CT without acute changes - Recent occular eval - Neuro following Visit type - Emergency Visit Emergency Visit: Yes ED Registration Date: 05/12/17 Care time: The patient presented to the Emergency Department on the above date and was hospitalized for further evaluation of their emergent condition. - New Patient This patient is new to me today: Yes Date on this admission: 05/13/17 - Critical Care Critical Care patient: No
[2017-05-13] MEDS ORDERED: CYCLOBENZAPRINE HCL 10 MG TABLET (FP) PO SCH (22:00)
[2017-05-14] MEDS ORDERED: ALBUTEROL SO4 2.5/IPRATROPIUM 0.5 INH SOL 3 ML VIAL.NEB. NEB ONE (03:39)
--- NOTE | 2017-05-14 08:52 | PN ---
Progress Note, Physician Chief Complaint: Smoking in his room, security called Head CT: no acute pathology TELE: NSR w short run PSVT Echo: Severe PHTN, chronic with interatrial shunt, known. - Current Medication List Current Medications: Active Medications Albuterol Sulfate (Ventolin 0.042trength) -) 1 amp NEB TID PRN PRN Reason: SHORT OF BREATH/WHEEZING Last Admin: 05/14/17 03:45 Dose: 1 amp Calcium Acetate (Phoslo -) 667 mg PO TIDCM [facility] Last Admin: 05/13/17 17:15 Dose: 667 mg Cyclobenzaprine HCl (Flexeril -) 10 mg PO HS [facility] Last Admin: 05/13/17 22:26 Dose: 10 mg Fluticasone Propionate (Flonase -) 1 spray NS PRN MONAE Folic Acid (Folic Acid -) 1 mg PO DAILY [facility] Last Admin: 05/13/17 09:45 Dose: 1 mg Isosorbide Mononitrate (Imdur -) 30 mg PO DAILY [facility] Meclizine HCl (Antivert -) 12.5 mg PO TID PRN PRN Reason: VERTIGO Metoprolol Succinate (Toprol Xl -) 25 mg PO DAILY [facility] Last Admin: 05/13/17 10:54 Dose: 25 mg Midodrine (Proamatine -) 10 mg PO ONCE ONE Stop: 05/14/17 08:01 Sevelamer Carbonate (Renvela -) 1,600 mg PO BID@0800,1730 [facility] Last Admin: 05/13/17 17:16 Dose: 1,600 mg - Objective Vital Signs: Vital Signs Temperature 98.0 F 05/14/17 06:00 Pulse Rate 77 05/14/17 06:00 Respiratory Rate 20 05/14/17 06:00 Blood Pressure 97/63 05/14/17 06:00 O2 Sat by Pulse Oximetry (%) 99 05/13/17 21:00 Constitutional: Yes: No Distress Eyes: Yes: Conjunctiva Clear Cardiovascular: Yes: Regular Rate and Rhythm Respiratory: Yes: Other (decreased basilar breath sounds) Gastrointestinal: Yes: Soft Edema: Yes Edema: LLE: 1+, RLE: 1+ Neurological: Yes: Alert Labs: CBC, BMP 05/13/17 06:00 - ....Imaging EKG: Image Reviewed Problem List - Problems (1) Acute on chronic combined systolic and diastolic CHF, NYHA class 4 Code(s): I50.43 - ACUTE ON CHRONIC COMBINED SYSTOLIC AND DIASTOLIC HRT FAIL (2) Dizziness Code(s): R42 - DIZZINESS AND GIDDINESS (3) Elevated troponin I level Code(s): R74.8 - ABNORMAL LEVELS OF OTHER SERUM ENZYMES (4) ESRD on hemodialysis Code(s): N18.6 - END STAGE RENAL DISEASE Z99.2 - DEPENDENCE ON RENAL DIALYSIS Assessment/Plan IMP: Acute on chronic combined valvular and diastolic CHF Dizziness History of MV/TV repair several years ago for endocarditis PHTN NSVT ASD ESRD on HD REC: Acute on chronic combined CHF: -Repeat echo normal LV function. -Volume removal with HD -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 Ho, appreciate evaluation. Head CT negative for acute pathology -Echo (known residual ASD) for which closure evaluation was planned, this should be done as outpatient and he should see Dr. Silvano Mc at [facility], who he was previously referred to for evaluation. MVR/TVR/PHTN: -residual moderate to severe MR and TR with PHTN, chronic issue -Volume removal with HD NSVT: -normal LV function -Beta sheryl started yesterday -Keep electrolytes optimized -History of non-obstructive CAD ESRD: -Regular HD
[2017-05-14 09:11] LABS: ALBUMIN 1.7 g/dl (3.4-5.0); ALK PHOS 80 U/L (45-117); ANION GAP 14 (8-16); BILIRUBIN,TOTAL 0.5 mg/dL (0.2-1.0); CALCIUM 7.6 mg/dL (8.5-10.1); CO2 25 mmol/L (21-32); CPK 201 IU/L (39-308); GLUCOSE,RANDOM 89 mg/dL (74-106); SGOT/AST 19 U/L (15-37); SGPT/ALT 19 U/L (12-78); TOT PROT 4.8 g/dl (6.4-8.2); TROPONIN I 0.07 ng/ml (0.00-0.05)
[2017-05-14 09:32] LABS: CREATININE 9.9 mg/dL (0.7-1.3)
--- NOTE | 2017-05-14 09:54 | PN ---
Physical Exam: SUBJECTIVE: Patient seen and examined. He denies sob while ambulating to the bathroom, he was told to follow up with scrap cutter at [facility] for his ASD closure. Events: - Smoking in bath room, security called Tele: short rosenda SVT unsustained OBJECTIVE: Vital Signs Period Temp Pulse Resp BP Sys/Anderson Pulse Ox Last 24 Hr 97.8 F-98.1 F 68-77 20-20 97-111/57-64 99-99 PE Neuro: alert, awake, cn 2-12intact Pulm: clear anteriorly, + nc 2L CV: s1 s2 irregular rhythm regular rate +murmur Abd: s nt nd + bs Ext: LUE AVF with dried scabs, +1 swelling, LLE +1 pitting edema >R Laboratory Results - last 24 hr 05/13/17 05/14/17 06:00 07:00 Sodium 140 Potassium 4.4 Chloride 101 Carbon Dioxide 25 Anion Gap 14 BUN 53 H D Creatinine 9.9 H* Creat Clearance w eGFR 5.53 Random Glucose 89 Calcium 7.6 L Total Bilirubin 0.5 D AST 19 D ALT 19 Alkaline Phosphatase 80 D Creatine Kinase 261 201 Creatine Kinase Index 2.0 CK-MB (CK-2) 5.355 H Troponin I 0.09 H 0.07 H Total Protein 4.8 L Albumin 1.7 L Active Medications Generic Name Dose Route Start Last Admin Trade Name Freq PRN Reason Stop Dose Admin Albuterol Sulfate 1 amp 05/12/17 21:40 05/14/17 03:45 Ventolin 0.042trength) - NEB 1 amp TID PRN Administration SHORT OF BREATH/WHEEZING Calcium Acetate 667 mg 05/13/17 08:00 05/13/17 17:15 Phoslo - PO 667 mg TIDCM MONAE Administration Cyclobenzaprine HCl 10 mg 05/13/17 22:00 05/13/17 22:26 Flexeril - PO 10 mg HS MONAE Administration Fluticasone Propionate 1 spray 05/13/17 11:45 Flonase - NS PRN MONAE Folic Acid 1 mg 05/13/17 10:00 05/13/17 09:45 Folic Acid - PO 1 mg DAILY MONAE Administration Isosorbide Mononitrate 30 mg 05/14/17 10:00 Imdur - PO DAILY MONAE Meclizine HCl 12.5 mg 05/13/17 10:48 Antivert - PO TID PRN VERTIGO Metoprolol Succinate 25 mg 05/13/17 10:30 05/13/17 10:54 Toprol Xl - PO 25 mg DAILY MONAE Administration Midodrine 10 mg 05/14/17 08:00 Proamatine - PO 05/14/17 08:01 ONCE ONE Sevelamer Carbonate 1,600 mg 05/13/17 08:00 05/13/17 17:16 Renvela - PO 1,600 mg BID@0800,1730 MONAE Administration Assessment: 56 year old male with PMhx of ESRD on HD (TTS at [facility]), CHF, Hypertension, MV/TV repair, MRSA endocarditis s/p Bio AVR/MVR 2014 at [facility], polysubstance abuse, admitted with dizziness and SOB. Plan: 1. ESRD on HD with SOB/Volume overload - For HD today - Midodrine if needed for hypotension to aid in fluid removal 2. Acute on chronic diastolic/ systolic CHF - Trops flat 0.09, likely demand from volume overload - Continue Toprol xl 25mg for svt - Isosorbide mononitirate 30mg daily 3. 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 Silvano Mc at [facility], who he was previously referred to for evaluation. - Repeat ECHO reviewed, prosthetic valves noted, LVSF normal, normal EF 4. Persistent lightheadedness - Head CT without acute changes - Recent occular eval - Neuro following Dispo: - If stable following HD today, DC home Visit type - Emergency Visit Emergency Visit: Yes ED Registration Date: 05/12/17 Care time: The patient presented to the Emergency Department on the above date and was hospitalized for further evaluation of their emergent condition. - New Patient This patient is new to me today: No - Critical Care Critical Care patient: No - Discharge Referral Referred to [facility] No
--- NOTE | 2017-05-14 09:58 | PN ---
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 Patient reports having r- eye vision loss with dizziness x several weeks. Patient reports be seen by the Resident Care Manager Rn and was told "everything is fine". Dr. San asked me to evaluate patient for ongoing dizzyness. He reports episodes that occur and isn't very specific. May be more lightheadedness as room spinning isn't always the case. No imaging on file and therefore I ordered CT head which did not show acute changes. Echo also completed and showed normal LV function. Active Medications Albuterol Sulfate (Ventolin 0.042trength) -) 1 amp NEB TID PRN PRN Reason: SHORT OF BREATH/WHEEZING Last Admin: 05/14/17 03:45 Dose: 1 amp Calcium Acetate (Phoslo -) 667 mg PO TIDCM [facility] Last Admin: 05/13/17 17:15 Dose: 667 mg Cyclobenzaprine HCl (Flexeril -) 10 mg PO HS [facility] Last Admin: 05/13/17 22:26 Dose: 10 mg Fluticasone Propionate (Flonase -) 1 spray NS PRN [facility] Folic Acid (Folic Acid -) 1 mg PO DAILY [facility] Last Admin: 05/13/17 09:45 Dose: 1 mg Isosorbide Mononitrate (Imdur -) 30 mg PO DAILY [facility] Meclizine HCl (Antivert -) 12.5 mg PO TID PRN PRN Reason: VERTIGO Metoprolol Succinate (Toprol Xl -) 25 mg PO DAILY [facility] Last Admin: 05/13/17 10:54 Dose: 25 mg Midodrine (Proamatine -) 10 mg PO ONCE ONE Stop: 05/14/17 08:01 Sevelamer Carbonate (Renvela -) 1,600 mg PO BID@0800,1730 [facility] Last Admin: 05/13/17 17:16 Dose: 1,600 mg PHYSICAL EXAMINATION Last Vital Signs Temp Pulse Resp BP Pulse Ox 98.0 F 77 20 97/63 99 05/14/17 06:00 05/14/17 06:00 05/14/17 06:00 05/14/17 06:00 05/13/17 21:00 GENERAL: Awake, alert, and fully oriented, in no acute distress. HEAD: Normal with no signs of trauma. EYES: Pupils equal, round and reactive to light, extraocular movements intact, sclera anicteric, conjunctiva clear. No lid lag. EARS, NOSE, THROAT: Ears normal, nares patent, oropharynx clear without exudates. Moist mucous membranes. NECK: Normal range of motion, supple without lymphadenopathy, JVD, or masses. LUNGS: Breath sounds equal, clear to auscultation bilaterally. No wheezes, and no crackles. No accessory muscle use. HEART: Regular rate and rhythm, normal S1 and S2 without murmur, rub or gallop. ABDOMEN: Soft, nontender, not distended, normoactive bowel sounds, no guarding, no rebound, no masses. No hepatomegaly or splenomegaly. MUSCULOSKELETAL: Normal range of motion at all joints. No bony deformities or tenderness. No CVA tenderness. UPPER EXTREMITIES: 2+ pulses, warm, well-perfused. No cyanosis. No clubbing.+2 left wrist/hand peripheral edema. LOWER EXTREMITIES: 2+ pulses, warm, well-perfused. No calf tenderness. +2 L>R from below knee-pichardo peripheral edema. NEUROLOGICAL: Cranial nerves II-XII intact. No focal deficits, strength intact , sensory normal. CBCD WBC 4.5 K/mm3 (4.0-10.0) 05/13/17 06:00 RBC 4.14 M/mm3 (4.00-5.60) 05/13/17 06:00 Hgb 12.8 GM/dL (11.7-16.9) 05/13/17 06:00 Hct 39.7 % (35.4-49) 05/13/17 06:00 MCV 95.8 fl (80-96) 05/13/17 06:00 MCHC 32.2 g/dl (32.0-35.9) 05/13/17 06:00 RDW 16.8 % (11.9-15.9) H 05/13/17 06:00 Plt Count 119 K/MM3 (134-434) L 05/13/17 06:00 MPV 9.6 fl (7.5-11.1) 05/13/17 06:00 CMP Sodium 140 mmol/L (136-145) 05/14/17 07:00 Potassium 4.4 mmol/L (3.5-5.1) 05/14/17 07:00 Chloride 101 mmol/L (98-107) 05/14/17 07:00 Carbon Dioxide 25 mmol/L (21-32) 05/14/17 07:00 Anion Gap 14 (8-16) 05/14/17 07:00 BUN 53 mg/dL (7-18) H D 05/14/17 07:00 Creatinine 9.9 mg/dL (0.7-1.3) H* 05/14/17 07:00 Creat Clearance w eGFR 5.53 (>60) 05/14/17 07:00 Random Glucose 89 mg/dL (74-106) 05/14/17 07:00 Calcium 7.6 mg/dL (8.5-10.1) L 05/14/17 07:00 Total Bilirubin 0.5 mg/dL (0.2-1.0) D 05/14/17 07:00 AST 19 U/L (15-37) D 05/14/17 07:00 ALT 19 U/L (12-78) 05/14/17 07:00 Alkaline Phosphatase 80 U/L (45-117) D 05/14/17 07:00 Total Protein 4.8 g/dl (6.4-8.2) L 05/14/17 07:00 Albumin 1.7 g/dl (3.4-5.0) L 05/14/17 07:00 CARDIAC ENZYMES Creatine Kinase 201 IU/L (39-308) 05/14/17 07:00 Troponin I 0.07 ng/ml (0.00-0.05) H 05/14/17 07:00 CT head reviewed Echo reviewed Plan 56 y/o male with a past medical history of HTN, HLD, Anemia, Severe Pulmonary HYN ,Polysubstance Abuse, MRSA Endocarditiis s/p MVR/AVR (04/2015,[facility]), ESRD (T, TH, Sa). Patient reports having r- eye vision loss with dizziness x several weeks. Patient reports be seen by the Resident Care Manager Rn and was told "everything is fine". Dr. San asked me to evaluate patient for ongoing dizzyness. He reports episodes that occur and isn't very specific. May be more lightheadedness as room spinning isn't always the case. Meclezine was also ordered to be taken as needed. CT head stable. Follow up cardiology recommendations. Monitor blood pressure, goal range 120-140 systolic. Continue HD, (,, Thu), nephro follow up.
[2017-05-14] MEDS ORDERED: ISOSORBIDE MONONITRATE 30 MG TAB.SR.24H (FP) PO SCH (10:00)
[2017-05-14] MEDS ORDERED: ISOSORBIDE MONONITRATE 10 MG TABLET PO SCH (10:00)
[2017-05-14] MEDS ORDERED: MIDODRINE HCL 5 MG TABLET PO ONE (10:30)
[2017-05-14] MEDS: METOPROLOL SUCCINATE 25 MG TAB.SR.24H (FP) PO SCH (10:31)
[2017-05-14] MEDS: SEVELAMER CARBONATE 800 MG TAB (FP) PO SCH (10:33)
[2017-05-14] MEDS: CALCIUM ACETATE 667 MG CAPSULE (FP) PO SCH ×2 (10:33→14:16)
[2017-05-14] MEDS: FOLIC ACID 1 MG TABLET (FP) PO SCH (10:33)
--- NOTE | 2017-05-14 12:21 | EKG ---
Test Reason : Blood Pressure : / mmHG Vent. Rate : 080 BPM Atrial Rate : 080 BPM P-R Int : 144 ms QRS Dur : 098 ms QT Int : 416 ms P-R-T Axes : -25 151 -09 degrees QTc Int : 479 ms SINUS RHYTHM WITH FREQUENT PREMATURE VENTRICULAR COMPLEXES INCOMPLETE RIGHT BUNDLE BRANCH BLOCK , PLUS RIGHT VENTRICULAR HYPERTROPHY ANTERIOR INFARCT , AGE UNDETERMINED T WAVE ABNORMALITY, CONSIDER INFERIOR ISCHEMIA ABNORMAL ECG WHEN COMPARED WITH ECG OF 22-APR-2017 09:11, PREMATURE VENTRICULAR COMPLEXES ARE NOW PRESENT PREMATURE ATRIAL COMPLEXES ARE NO LONGER PRESENT Confirmed by JUDITH THAKKAR MD ([id number]) on 05/14/2017 12:21:20 PM Referred By: Confirmed By:JUDITH THAKKAR MD
[2017-05-14 12:32] LABS: MCH 30.8 pg (25.7-33.7); MEAN CELL VOLUME 96.1 fl (80-96); MEAN PLT VOLUME 9.6 fl (7.5-11.1); PLATELET COUNT 124 K/MM3 (134-434); RDW 16.1 % (11.9-15.9); WHITE BLOOD COUNT 5.6 K/mm3 (4.0-10.0)
[2017-05-14 13:10] LABS: ANION GAP 13 (8-16); CALCIUM 7.6 mg/dL (8.5-10.1); CO2 25 mmol/L (21-32); GLUCOSE,RANDOM 86 mg/dL (74-106); PHOSPHOROUS 5.9 mg/dL (2.5-4.9)
[2017-05-14 13:19] LABS: CREATININE 10.1 mg/dL (0.7-1.3)
--- NOTE | 2017-05-14 15:13 | PN ---
Progress Note (short form) - Note Progress Note: Renal follow up for ESRD on HD Pt seen and examined during dialysis AVF with good flow, access pressures WNL, GOal UF is 3-3.5L BP stable (lower intially) no overnight events Vital Signs Temperature 98 F 05/14/17 10:20 Pulse Rate 90 05/14/17 14:36 Respiratory Rate 18 05/14/17 14:36 Blood Pressure 110/62 05/14/17 14:36 O2 Sat by Pulse Oximetry (%) 95 05/14/17 09:00 Intake & Output 05/11/17 05/12/17 05/13/17 05/14/17 23:59 23:59 23:59 23:59 Intake Total 370 Balance 370 Weight 167 lb 8.821 oz 170 lb 3.2 oz 171 lb 3.2 oz Gen: NAD CVS: RRR Lungs: CTA Abd: Soft NT/ND Ext: 1+ edema CBC, BMP 05/14/17 10:20 05/14/17 10:20 Current Medications Albuterol Sulfate (Ventolin 0.042trength) -) 1 amp NEB TID PRN PRN Reason: SHORT OF BREATH/WHEEZING Last Admin: 05/14/17 03:45 Dose: 1 amp Calcium Acetate (Phoslo -) 667 mg PO TIDCM [facility] Last Admin: 05/14/17 14:16 Dose: Not Given Cyclobenzaprine HCl (Flexeril -) 10 mg PO HS [facility] Last Admin: 05/13/17 22:26 Dose: 10 mg Fluticasone Propionate (Flonase -) 1 spray NS PRN [facility] Folic Acid (Folic Acid -) 1 mg PO DAILY [facility] Last Admin: 05/14/17 10:33 Dose: 1 mg Isosorbide Mononitrate (Imdur -) 30 mg PO DAILY [facility] Last Admin: 05/14/17 10:31 Dose: Not Given Meclizine HCl (Antivert -) 12.5 mg PO TID PRN PRN Reason: VERTIGO Metoprolol Succinate (Toprol Xl -) 25 mg PO DAILY [facility] Last Admin: 05/14/17 10:31 Dose: Not Given Sevelamer Carbonate (Renvela -) 1,600 mg PO BID@0800,1730 [facility] Last Admin: 05/14/17 10:33 Dose: 1,600 mg A/P 56 year old Gentleman with PMhx of ESRD on HD (TTS at [facility]), CHF, Hypertension, MV/TV repair, Hx of Endocarditis who presented with complaints of SOB. #ESRD on HD with SOB/Volume overload Tolerating dialysis well today Goal UF is 3-3.5L Dose all meds for intermittent HD will re-evalulate daily for need for extra UF #CHF/MV/TV Repair Cardiology following Started BB Monitor volume status Fluid/Na restriction #Renal Osteodystrophy Continue Phos binder with meals Goal Phos < 4.5 #CKD Related Anemia Hgb is at hold no MARCO ANTONIO at this time Trend CBC Abdirashid Guthrie DO Problem List - Problems (1) HTN (hypertension) Code(s): I10 - ESSENTIAL (PRIMARY) HYPERTENSION (2) CHF (congestive heart failure) Code(s): I50.9 - HEART FAILURE, UNSPECIFIED (3) ESRD (end stage renal disease) on dialysis Code(s): N18.6 - END STAGE RENAL DISEASE Z99.2 - DEPENDENCE ON RENAL DIALYSIS (4) Anemia in CKD (chronic kidney disease) Code(s): N18.9 - CHRONIC KIDNEY DISEASE, UNSPECIFIED D63.1 - ANEMIA IN CHRONIC KIDNEY DISEASE (5) Renal osteodystrophy Code(s): N25.0 - RENAL OSTEODYSTROPHY (6) H/O mitral valve repair Code(s): Z98.890 - OTHER SPECIFIED POSTPROCEDURAL STATES (7) SOB (shortness of breath) Code(s): R06.02 - SHORTNESS OF BREATH
[2017-05-14 15:27] VITALS: BP 104/57; PULSE 81; TEMP 97.6
[2017-05-14] MEDS ORDERED: TAMSULOSIN HCL 0.4 MG CAP.ER.24H (FP) PO ONE (15:57)
--- NOTE | 2017-05-14 16:13 | DS ---
Physical Exam: SUBJECTIVE: Patient seen and examined. He has no complaints, he wants to know why he can't go straight to get his ASD fixed from here. OBJECTIVE: Vital Signs Period Temp Pulse Resp BP Sys/Anderson Pulse Ox Last 24 Hr 97.6 F-98.8 F 61-92 18-20 97-135/40-86 95-99 PE Neuro: alert, awake, cn 2-12intact Pulm: clear anteriorly, + nc 2L CV: s1 s2 irregular rhythm regular rate +murmur Abd: s nt nd + bs Ext: LUE AVF with dried scabs, +1 swelling, LLE +1 pitting edema >R Laboratory Results - last 24 hr 05/14/17 05/14/17 05/14/17 07:00 10:20 10:20 WBC 5.6 RBC 4.18 Hgb 12.9 Hct 40.2 MCV 96.1 H MCH 30.8 MCHC 32.0 RDW 16.1 H Plt Count 124 L MPV 9.6 Sodium 140 140 Potassium 4.4 4.5 Chloride 101 102 Carbon Dioxide 25 25 Anion Gap 14 13 BUN 53 H D 56 H Creatinine 9.9 H* 10.1 H* Creat Clearance w eGFR 5.53 Random Glucose 89 86 Calcium 7.6 L 7.6 L Phosphorus 5.9 H Total Bilirubin 0.5 D AST 19 D ALT 19 Alkaline Phosphatase 80 D Creatine Kinase 201 Creatine Kinase Index 1.7 CK-MB (CK-2) 3.443 Troponin I 0.07 H Total Protein 4.8 L Albumin 1.7 L HOSPITAL COURSE: Date of Admission:05/12/17 Date of Discharge: 05/14/17 Minutes to complete discharge: 37 Discharge Summary Reason For Visit: END STAGE RENAL DISEASE ON HEMODIALYSIS/UNCONTROLL Current Active Problems Acute electrocardiogram changes (Acute) Acute on chronic combined systolic and diastolic CHF, NYHA class 4 (Acute) Anemia in CKD (chronic kidney disease) (Acute) CHF (congestive heart failure) (Acute) Dizziness (Acute) ESRD (end stage renal disease) on dialysis (Acute) Elevated troponin I level (Acute) H/O mitral valve repair (Acute) Renal osteodystrophy (Acute) SOB (shortness of breath) (Acute) SVT (supraventricular tachycardia) (Acute) Chronic left shoulder pain (Chronic) ESRD on hemodialysis (Chronic) Hospital Course: Initial Hospital Course: Briefly, this 56 year old male with a past medical history of HTN, HLD, Anemia, Severe Pulmonary HTN, Polysubstance Abuse, MRSA Endocarditiis s/p MVR/AVR (2014,[facility]), ESRD (, , ). Patient reported having r- eye vision loss with dizziness x several weeks. He was seen Captain/Airline Pilot and was told "everything is fine". Patient reports having SOB with MARQUIS intermittently with swelling and tightness to lower extremities. Subsequent Hospital Course/Progress Note/Discharge Summary Plan: 1. ESRD on HD with SOB/Volume overload - Pt refused extra session of UF dialysis - He was given Midodrine on 05/14 with HD for hypotension 2. Acute on chronic diastolic/ systolic CHF - Trops flat 0.09, likely demand from volume overload - Started and to continue Toprol xl 25mg for svt as seen on tele - Isosorbide mononitirate 30mg daily 3. 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 Silvano Mc at [facility], who he was previously referred to for evaluation. - Repeat ECHO reviewed, prosthetic valves noted, LVSF normal, normal EF 4. Persistent lightheadedness - Head CT without acute changes - Recent occular eval Dispo: - Home with above meds and resume HD days with pcp and cardiac follow up - PT aware and agrees to above plan Condition: Stable - Instructions Diet, Activity, Other Instructions: Please return to the ED for any new, persistent, or worsening symptoms. Follow up with your PCP in 1 week Take home and new medications as directed on home medications list Follow as outpatient with Dr. Silvano Mc at [facility] Continue dialysis as scheduled Referrals: Omar Hernandez MD [Primary Care Provider] - Abdirashid Guthrie MD [Staff Physician] - Disposition: HOME - Home Medications Comprehensive Discharge Medication List: Ambulatory Orders Calcium Acetate 667 mg PO TID 09/11/16 Folic Acid 1 mg PO DAILY 09/11/16 Sevelamer Carbonate [Renvela -] 1,600 mg PO BID 09/11/16 Albuterol Sulfate 0.042% [Ventolin 0.042% (Half-Strength) -] 1 amp NEB TID PRN 04/22/17 Cyclobenzaprine HCl [Flexeril -] 10 mg PO HS 04/22/17 Fluticasone Prop 0.05% Nasal [Flonase -] 1 spray NS PRN 04/22/17 Oxycodone HCl/Acetaminophen [Percocet 5-325 mg Tablet] 1 tab PO Q6H PRN #15 tablet MDD 4 04/22/17 Isosorbide Mononitrate 30 mg PO DAILY #30 cap 05/14/17 Metoprolol Succinate [Toprol Xl -] 25 mg PO DAILY #30 tab.sr.24h 05/14/17 This patient is new to me today: No Emergency Visit: Yes ED Registration Date: 05/12/17 Care time: The patient presented to the Emergency Department on the above date and was hospitalized for further evaluation of their emergent condition. Critical Care patient: No - Discharge Referral Referred to [facility] No
[2017-05-16 00:06] LABS: HEP B SURFACE AB Non Reactive (.)
== END 2017-05-14 18:13 | disposition home or self-care (01) | DRG 194 ==
LOC: JER 12:14 → JERBED 21:26 → J4W 05-13 00:18
PROVIDERS: ADMIT Internal Medicine; ATTEND Nurse Practitioner Acute Care
PROC: 5A1D00Z (ICD-10-PCS; principal; 2017-05-14)
DX: I13.2 Hypertensive heart and chronic kidney disease with heart failure and with stage 5 chronic kidney disease, or end stage renal disease (principal); I27.2 Other secondary pulmonary hypertension; N18.6 End stage renal disease; N25.0 Renal osteodystrophy; Z99.81 Dependence on supplemental oxygen; R42 Dizziness and giddiness; E78.5 Hyperlipidemia, unspecified; Z95.2 Presence of prosthetic heart valve; B19.20 Unspecified viral hepatitis C without hepatic coma; I47.1 Supraventricular tachycardia; F17.210 Nicotine dependence, cigarettes, uncomplicated; M25.512 Pain in left shoulder; D63.1 Anemia in chronic kidney disease; Z99.2 Dependence on renal dialysis; I50.43 Acute on chronic combined systolic (congestive) and diastolic (congestive) heart failure; H54.61 Unqualified visual loss, right eye, normal vision left eye; F14.10 Cocaine abuse, uncomplicated; I24.8 Other forms of acute ischemic heart disease
CPT/HCPCS: 36415; 70450-TC; 71010-TC; 80048; 80053; 82553; 83735; 83880; 84100; 84484; 85025; 85027; 86704; 86706; 86708; 86803; 87340; 93005; 93010; 93306-TC; 94640; 99285-25

== ENCOUNTER 2017-06-27 16:01 | Observation (INO) | payer OTHER ==
[2017-06-27 16:11] VITALS: BMI 22.8
--- NOTE | 2017-06-27 16:42 | PDOC ---
History of Present Illness - General Chief Complaint: Pain Stated Complaint: REVISIT/ EVALUATION Time Seen by Provider: 06/27/17 16:22 History Source: Patient - History of Present Illness Timing/Duration: reports: yesterday Associated Symptoms: reports: shortness of breath. denies: chest pain/soreness , cough, fever/chills, headache, lightheadedness, wheezing Past History - Past Medical History Allergies/Adverse Reactions: Allergies Allergy/AdvReac Type Severity Reaction Status Date / Time Iodinated Contrast- Oral and Allergy Verified 06/27/17 16:11 IV Dye CONTRAST Allergy Hives Uncoded 06/27/17 16:11 Home Medications: Ambulatory Orders Calcium Acetate 667 mg PO TID 09/11/16 Folic Acid 1 mg PO DAILY 09/11/16 Sevelamer Carbonate [Renvela -] 1,600 mg PO BID 09/11/16 Albuterol Sulfate 0.042% [Ventolin 0.042% (Half-Strength) -] 1 amp NEB TID PRN 04/22/17 Cyclobenzaprine HCl [Flexeril -] 10 mg PO HS 04/22/17 Fluticasone Prop 0.05% Nasal [Flonase -] 1 spray NS PRN 04/22/17 Oxycodone HCl/Acetaminophen [Percocet 5-325 mg Tablet] 1 tab PO Q6H PRN #15 tablet MDD 4 04/22/17 Anemia: Yes Asthma: Yes Cancer: No Cardiac Disorders: Yes (2X VALVE REPLACEMENT) CVA: No COPD: No CHF: No Dementia: No Diabetes: No Dialysis: Yes () GI Disorders: Yes Disorders: Yes (ENLARGED PROSTATE) HTN: Yes Hypercholesterolemia: Yes Liver Disease: No Seizures: No Thyroid Disease: No - Surgical History Abdominal Surgery: No Appendectomy: No Cardiac Surgery: Yes (2 VALVES REPLACED 04/2015) Cholecystectomy: No Lung Surgery: Yes (h/o MRSA pleural tissue) - Immunization History Immunization Up to Date: No - Suicide/Smoking/Psychosocial Hx Smoking Status: Yes Smoking History: Current every day smoker Have you smoked in the past 12 months: Yes Number of Cigarettes Smoked Daily: 2 Information on smoking cessation initiated: No 'Breaking Loose' booklet given: 05/12/17 Hx Alcohol Use: No Drug/Substance Use Hx: No Substance Use Type: None Hx Substance Use Treatment: Yes (rehab, detox) Review of Systems - Review of Systems Constitutional: Yes: Malaise. No: Chills, Fever Respiratory: Yes: Shortness of Breath. No: Cough, Wheezing Cardiac (ROS): No: Chest Pain, Lightheadedness, Palpitations, Syncope ABD/GI: No: Constipated, Diarrhea, Nausea, Vomiting *Physical Exam - Vital Signs Last Vital Signs Temp Pulse Resp BP Pulse Ox 98.6 F 66 20 113/64 98 06/27/17 16:06 06/27/17 16:06 06/27/17 16:06 06/27/17 16:06 06/27/17 16:06 - Physical Exam Comments: 06/27/17 16:54 chronically ill appearing male General Appearance: Yes: Appropriately Dressed. No: Apparent Distress HEENT: positive: Normal Voice Neck: positive: Supple Respiratory/Chest: positive: Lungs Clear, Normal Breath Sounds. negative: Respiratory Distress, Wheezing Cardiovascular: positive: Regular Rate, S1, S2 Gastrointestinal/Abdominal: positive: Soft. negative: Tender Extremity: positive: Pedal Edema Integumentary: positive: Dry, Warm Neurologic: positive: Fully Oriented, Alert, Normal Mood/Affect Heart Score/ECG Review - ECG Intrepretation Comment:: 06/27/17 18:23 EKG unremarkable ED Treatment Course - LABORATORY CBC & Chemistry Diagram: 06/27/17 17:15 06/27/17 17:15 - RADIOLOGY Radiology Studies Ordered: Category Date Time Status CHEST X-RAY PORTABLE* [RAD] Stat Radiology 06/27/17 16:31 Ordered Medical Decision Making - Medical Decision Making 06/27/17 16:34 The patient is a 56-year-old man with a significant past medical history of polysubstance abuse, HCV, cirrhosis, emphysema on 3L oxygen, pulm HTN, HTN, HLD , MRSA endocarditis status post biologic MVR/AVR, ASD, normal coronaries on cath at [place] in 2014, anemia, end-stage renal disease (on hemodialysis in [place], [place] on T/T/S), here w/ orthopnea w/ generalized weakness and worsening b/l LE edema since yesterday. Pt states he was recently admitted at [facility] [place] after his LUE fistula stopped working. Had a R chest port placed and last received dialysis 3 days ago and discharged home from hospital. States since back home, he feels fluid overloaded and was unable to report to his dialysis session in [place] today because of profound weakness. Denies CP, diaphoresis , cough, f/c/n/v, abd pain or change to BM. Does not produce urine Renal: Dr Ashley Hatfield Cards:Dr San PMD:?Dr Hernandez See exam SOB w/ weakness Missed HD today due to malaise Last dialyzed [address] [facility] [place] via R chest port (LUE fistula recently stopped working) Pt stable w/ unremarkable exam -ekg -cxr -labs -renal c/s to arrange HD -anticipate admission 06/27/17 16:54 06/27/17 17:[address] Briones of renal who states patient was actually admitted to [facility] for chest pain after c/o same during HD. States pt can be dialyzed in ~1/2 hr. Wants pt admitted 06/27/17 17:14 06/27/17 18:23 06/27/17 18:23 06/27/17 18:42 BNP approximately 30,000 with tropenemia of 0.06, similar to numbers in the past. Elevated troponin most likely secondary to demand ischemia as EKG unremarkable. Hospitalist aware and pt admitted at this time and enroute to dialysis 06/27/17 18:44 06/27/17 18:46 *DC/Admit/Observation/Transfer Diagnosis at time of Disposition: ESRD on hemodialysis Fluid overload Qualifiers: Hypervolemia type: other Qualified Code(s): E87.79 - Other fluid overload - Discharge Dispostion Condition at time of disposition: Fair Admit: Yes - Referrals Referrals: Omar Hernandez MD [Primary Care Provider] -
--- NOTE | 2017-06-27 17:20 | PDOC ---
*Physical Exam - Vital Signs Last Vital Signs Temp Pulse Resp BP Pulse Ox 98.6 F 66 20 113/64 98 06/27/17 16:06 06/27/17 16:06 06/27/17 16:06 06/27/17 16:06 06/27/17 16:06 Medical Decision Making - Medical Decision Making 06/27/17 17:18 Patient seen and evaluated with the nurse practitioner. I agree with the overall evaluation, assessment, and management with the following summary of visit: 56-year-old male well known to this institution with multiple medical problems including end-stage renal disease status post recent catheter placement secondary to nonfunctioning fistula, last dialysis was at [facility] and scheduled for outpatient dialysis today represents here with complaints of volume overload needing more urgent dialysis. Vitals as noted Agree with exam as outlined Case discussed with patient's lead manufacturing engineer, Dr. Briones, who recommends admission and dialysis. Will proceed accordingly. *DC/Admit/Observation/Transfer Diagnosis at time of Disposition: ESRD on hemodialysis Fluid overload Qualifiers: Hypervolemia type: other Qualified Code(s): E87.79 - Other fluid overload; E87.79 - Other fluid overload
[2017-06-27 17:23] LABS: BASOPHIL 0.7 % (0-2.0); EOSINOPHIL 12.1 % (0-4.5); MCHC 32.4 g/dl (32.0-35.9); MEAN CELL VOLUME 95.7 fl (80-96); MEAN PLT VOLUME 9.5 fl (7.5-11.1); NEUTROPHILS 71.3 % (42.8-82.8); PLATELET COUNT 260 K/MM3 (134-434); RDW 16.6 % (11.9-15.9); WHITE BLOOD COUNT 8.1 K/mm3 (4.0-10.0)
[2017-06-27 18:17] LABS: ALBUMIN 1.7 g/dl (3.4-5.0); ANION GAP 9 (8-16); BILIRUBIN,TOTAL 0.3 mg/dL (0.2-1.0); CALCIUM 7.8 mg/dL (8.5-10.1); CO2 30 mmol/L (21-32); GLUCOSE,RANDOM 90 mg/dL (74-106); SGOT/AST 31 U/L (15-37); SGPT/ALT 11 U/L (12-78); TOT PROT 5.6 g/dl (6.4-8.2)
[2017-06-27 18:22] LABS: ALK PHOS 149 U/L (45-117); CPK 343 IU/L (39-308); TROPONIN I 0.06 ng/ml (0.00-0.05)
[2017-06-27 18:24] LABS: CREATININE 9.3 mg/dL (0.7-1.3)
[2017-06-27] MEDS ORDERED: EPOETIN ALFA 10,000 UNIT/1 ML VIAL IVPUSH ONE (18:30)
--- NOTE | 2017-06-27 23:55 | HP ---
CHIEF COMPLAINT: fluid overload PCP: Dr. Tavarez HISTORY OF PRESENT ILLNESS: 56 yr old man with ESRD on HD (TRSat) presents to ED requiring HD due to here generalized weakness and worsening b/l LE edema since being discharged from [facility]. He was seen for nonfunctioning left forearm fistula. He had a right chest permacath placed and received HD on without difficulty. Pt was irritated and declined further conversation and full physical exam. ER course was notable for: (1) ED discussed with Dr. Tavarez for HD Chart reviewed for past history: Past Medical History Cardio/Vascular CHF (Chronic diastolic HF, Severe Pulm HTN),HTN (s/p MVR (bio)),Hyperlipdemia (Severe Tricuspid regurgitation, Endocarditis s/p TVR/MVR, recurrent bacteremia),Mitral Insufficiency, Pulmonary Hypertension,Other Pulmonary Other (PHTN) Gastrointestinal Ascites,Constipation Hepatobiliary Hepatitis C Renal/ Renal Failure,Hemodialysis Heme/Onc Anemia Psych Addictions Past Surgical History Past Surgical History AV Fistula/Graft (11/19),Hernia Repair Social History Smoking history Current every day smoker Have you smoked in the past 12 Yes months Hx Alcohol Use No History of Substance Use Cocaine (last use 2 weeks ago),Marijuana Usual Living Arrangement Other ADL Independent 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 Allergies Iodinated Contrast- Oral and IV Dye Allergy (Verified 06/27/17 16:11) HIVES CONTRAST Allergy (Uncoded 06/27/17 16:11) Hives HOME MEDICATIONS: Home Medications Medication Instructions Recorded Calcium Acetate 667 mg PO TID 09/11/16 Folic Acid 1 mg PO DAILY 09/11/16 Sevelamer Carbonate [Renvela -] 1,600 mg PO BID 09/11/16 Albuterol Sulfate 0.042% [Ventolin 1 amp NEB TID PRN 04/22/17 0.042% (Half-Strength) -] Cyclobenzaprine HCl [Flexeril -] 10 mg PO HS 04/22/17 Fluticasone Prop 0.05% Nasal 1 spray NS PRN 04/22/17 [Flonase -] Oxycodone HCl/Acetaminophen 1 tab PO Q6H PRN #15 tablet MDD 4 04/22/17 [Percocet 5-325 mg Tablet] REVIEW OF SYSTEMS CONSTITUTIONAL: Present: generalized weakness, CARDIOVASCULAR: Present: peripheral edema Absent: chest pain RESPIRATORY: Present: shortness of breath, Absent: cough PHYSICAL EXAMINATION Vital Signs - 24 hr 06/27/17 06/27/17 06/27/17 19:30 20:00 20:30 Pulse Rate 59 L 60 61 Respiratory 18 18 18 Rate Blood Pressure 101/61 104/57 93/53 06/27/17 06/27/17 06/27/17 21:00 21:30 22:00 Pulse Rate 62 67 69 Respiratory 18 18 18 Rate Blood Pressure 98/59 96/55 94/65 06/27/17 06/27/17 22:30 22:50 Pulse Rate 67 67 Respiratory 18 18 Rate Blood Pressure 101/59 91/57 GENERAL: Awake, alert, irritated, noncooperative, would not complete interview or participate in full exam LUNGS: anterior auscultation, Breath sounds equal, clear to auscultation bilaterally. HEART: Regular rate and rhythm, normal S1 and S2 without murmur. CHEST: right upper chest permacath without surrounding erythma, discharge ABDOMEN: Soft, nontender, not distended, UPPER EXTREMITIES: left forearm with sutures and dressing in place at fistula site NEUROLOGICAL: Normal speech. facial symmetry EXTREMITIES: b/l le with hyperpigmented thickened very dry flaky skin with + pitting edema from feet to knee ASSESSMENT/PLAN: 56 yr old with ESRD on HD with multiple co-morbiditied and a history of noncompliance and repeated admissions for HD presents feeling fluid overloaded with generalized weakness, placed on observation to receive HD. #Generalized weakness likely due to fluid overload requiring HD - Dr. Tavarez to make arrangements for HD - folic acid 1 mg po - renvela 1.6gm po bid - calcium acetate 667 mg po TID - low suspicion for ACS/CVA - fluid restrict DVT: anticipate short stay, hep TID Diet: low sodium/renal diet with fluid restriction Dispo: patient can likely be discharged post-dialysis to follow-up as outpatient for nonfunctioning left arm fistula Visit type - Emergency Visit Emergency Visit: Yes ED Registration Date: 06/27/17 Care time: The patient presented to the Emergency Department on the above date and was hospitalized for further evaluation of their emergent condition. - New Patient This patient is new to me today: Yes Date on this admission: 06/27/17 - Critical Care Critical Care patient: No
[2017-06-28 00:04] LABS: ANION GAP 8 (8-16); CALCIUM 7.4 mg/dL (8.5-10.1); CO2 32 mmol/L (21-32); CREATININE 3.9 mg/dL (0.7-1.3); GLUCOSE,RANDOM 116 mg/dL (74-106)
[2017-06-28 00:08] LABS: TROPONIN I 0.06 ng/ml (0.00-0.05)
--- NOTE | 2017-06-28 01:01 | PN ---
Teaching Attending Note Name of Resident: Selina Cali ATTENDING PHYSICIAN STATEMENT I saw and evaluated the patient. Chart, data, imaging reviewed. I reviewed the resident's note and discussed the case with the resident. I agree with the resident's findings and plan as documented with modifications below. SUBJECTIVE: 56-year-old man with a significant past medical history of polysubstance abuse, HCV, cirrhosis, emphysema on 3L oxygen, pulm HTN, HTN, HLD, MRSA endocarditis status post biologic MVR/AVR, ASD, normal coronaries on cath at [place] in 2014, anemia, end-stage renal disease (on hemodialysis in [place], [place] on T/T/S), recently d/c from [facility] AV fistula was not working and ACS r/o, presented complaining of orthopnea w/ generalized weakness and worsening b/l LE edema for 2 days. Had a right chest port placed and last received dialysis 3 days ago. Could not make it to his dialysis session because of weakness and malaise. OBJECTIVE: Last Vital Signs Temp Pulse Resp BP Pulse Ox 98.6 F 71 18 116/54 98 06/27/17 16:06 06/27/17 23:53 06/27/17 23:53 06/27/17 23:53 06/27/17 16:06 General- NAD, appears irritated, did not want to finish interview HEENT - AT, moist oral mucosa Neck -supple CV -s1+s2+ RRR Chest - b/l air entry sounds, right chest tunneled HD catheter ABdomen- soft, NT , BS+ Ext -left upper ext AVF, bruit+, thrill+, 2+ Pitting edema in lower extremities b/l Skin -chronic venous stasis changes on b/l LE Abnormal Lab Results 06/27/17 06/27/17 06/27/17 17:15 17:15 17:15 RBC 3.00 L D Hgb 9.3 L D Hct 28.7 L D RDW 16.6 H Lymphocytes % 6.6 L D Eosinophils % 12.1 H Potassium BUN 46 H Creatinine 9.3 H* Random Glucose Calcium 7.8 L ALT 11 L D Alkaline Phosphatase 149 H D Creatine Kinase 343 H CK-MB (CK-2) 3.862 H Troponin I 0.06 H B-Natriuretic Peptide 25992.57 H Total Protein 5.6 L Albumin 1.7 L 06/27/17 06/27/17 22:40 22:40 RBC Hgb Hct RDW Lymphocytes % Eosinophils % Potassium 3.2 L D BUN 19 H D Creatinine 3.9 H D Random Glucose 116 H D Calcium 7.4 L ALT Alkaline Phosphatase Creatine Kinase CK-MB (CK-2) Troponin I 0.06 H B-Natriuretic Peptide Total Protein Albumin EKG -partial RBBB, LVH, no acute st changes ASSESSMENT AND PLAN: #Shortness of breath- Likely 2/2 to fuid overload. Patient in need of HD. Unlikely ACS . Chronically elevated troponin at baseline likely 2/2 renal failure. EKG with no acute ST changes. -admit to observation -continue with hemodialysis -fluid restriction -trend troponin -supplemental oxygen via nasal cannula PRN -fluid restiction -daily weight -I/Os #Restart medications for chronic medical problems #Diet -renal diet #DVT ppx -heparin sc
[2017-06-28] MEDS ORDERED: POTASSIUM CHLORIDE TABS 20 MEQ TABLET.ER (FP) PO ONE (01:11)
[2017-06-28 08:02] LABS: ANION GAP 6 (8-16); CALCIUM 7.5 mg/dL (8.5-10.1); CO2 33 mmol/L (21-32); CREATININE 6.4 mg/dL (0.7-1.3); GLUCOSE,RANDOM 81 mg/dL (74-106); PHOSPHOROUS 2.8 mg/dL (2.5-4.9)
[2017-06-28 08:28] LABS: BASOPHIL 1.5 % (0-2.0); EOSINOPHIL 15.5 % (0-4.5); MCHC 32.8 g/dl (32.0-35.9); MEAN CELL VOLUME 94.5 fl (80-96); MEAN PLT VOLUME 9.3 fl (7.5-11.1); NEUTROPHILS 70.1 % (42.8-82.8); PLATELET COUNT 197 K/MM3 (134-434); RDW 16.2 % (11.9-15.9); WHITE BLOOD COUNT 5.8 K/mm3 (4.0-10.0)
--- NOTE | 2017-06-28 10:56 | EKG ---
Test Reason : Blood Pressure : / mmHG Vent. Rate : 069 BPM Atrial Rate : 069 BPM P-R Int : 180 ms QRS Dur : 104 ms QT Int : 466 ms P-R-T Axes : 078 166 -21 degrees QTc Int : 499 ms SINUS RHYTHM WITH OCCASIONAL and consecutive PREMATURE VENTRICULAR COMPLEXES RIGHT AXIS DEVIATION PULMONARY DISEASE PATTERN INCOMPLETE RIGHT BUNDLE BRANCH BLOCK RIGHT VENTRICULAR HYPERTROPHY NONSPECIFIC T WAVE ABNORMALITY PROLONGED QT ABNORMAL ECG WHEN COMPARED WITH ECG OF 12-MAY-2017 18:58, PREMATURE ATRIAL COMPLEXES ARE NO LONGER PRESENT INVERTED T WAVES HAVE REPLACED NONSPECIFIC T WAVE ABNORMALITY IN LATERAL LEADS CLINICAL CORRELATION IS RECOMMENDED Confirmed by CAROL LEIGH, IRENE ([id number]) on 06/28/2017 10:56:37 AM Referred By: Confirmed By:IRENE MEDINA MD
--- NOTE | 2017-06-28 11:04 | DS ---
Physical Exam: SUBJECTIVE: Patient seen and examined at bedside. OBJECTIVE: Vital Signs Temperature 98.1 F 06/28/17 10:42 Pulse Rate 66 06/28/17 10:42 Respiratory Rate 18 06/28/17 10:42 Blood Pressure 103/54 06/28/17 10:42 O2 Sat by Pulse Oximetry (%) 99 06/28/17 10:42 PHYSICAL EXAM GENERAL: The patient is awake, alert, and fully oriented, in no acute distress. HEAD: Normal with no signs of trauma. EYES: PERRL, extraocular movements intact, sclera anicteric, conjunctiva clear. LUNGS: Bibasilar crackles; tunneled dialysis catheter upper right chest HEART: Regular rate and rhythm, S1, S2 without murmur, rub or gallop. ABDOMEN: Soft, nontender, mildly distended, normoactive bowel sounds, no guarding, no rebound UPPER EXTREMITIES: RUE surgical sutures extending from elbow to wrist; edges well-approximated; no erythema, warmth, exudate LOWER EXTREMITIES: 2+ pulses, warm, well-perfused, 2+ bilateral edema, venous stasis changes NEUROLOGICAL: Cranial nerves II through XII grossly intact. Normal speech, gait not observed. LABS Laboratory Results - last 24 hr 06/27/17 06/27/17 06/28/17 22:40 22:40 06:00 WBC 5.8 RBC 2.60 L Hgb 8.1 L D Hct 24.6 L MCV 94.5 MCH 31.0 MCHC 32.8 RDW 16.2 H Plt Count 197 D MPV 9.3 Neutrophils % 70.1 Lymphocytes % 5.4 L Monocytes % 7.5 Eosinophils % 15.5 H Basophils % 1.5 Sodium 140 Potassium 3.2 L D Chloride 100 Carbon Dioxide 32 Anion Gap 8 BUN 19 H D Creatinine 3.9 H D Random Glucose 116 H D Calcium 7.4 L Phosphorus Magnesium Creatine Kinase 257 Creatine Kinase Index 0.9 CK-MB (CK-2) 2.489 Troponin I 0.06 H 06/28/17 06/28/17 06:00 08:15 WBC RBC Hgb Hct MCV MCH MCHC RDW Plt Count MPV Neutrophils % Lymphocytes % Monocytes % Eosinophils % Basophils % Sodium 140 Potassium 4.2 D Chloride 101 Carbon Dioxide 33 H Anion Gap 6 L BUN 27 H D Creatinine 6.4 H D Random Glucose 81 D Calcium 7.5 L Phosphorus 2.8 D Magnesium 2.0 Creatine Kinase Creatine Kinase Index CK-MB (CK-2) Troponin I 0.06 H HOSPITAL COURSE: Date of Admission:06/27/17 Date of Discharge: 06/28/17 Pre hospital course 56-year-old man with a significant past medical history of polysubstance abuse, HCV, cirrhosis, emphysema on 3L oxygen, pulm HTN, HTN, HLD, MRSA endocarditis status post biologic MVR/AVR, ASD, normal coronaries on cath at [place] in 2014, anemia, end-stage renal disease (on hemodialysis in [place], [place] on T/T/S), recently d/c from [facility] AV fistula was not working and ACS r/o, presented complaining of orthopnea w/ generalized weakness and worsening b/l LE edema for 2 days. Had a right chest port placed and last received dialysis 3 days ago. Could not make it to his dialysis session because of weakness and malaise. Hospital course by problem list (1) Fluid overload (2) ESRD on hemodialysis --underwent emergent dialysis with UF; epo given -- patient refused to stay for the entire treatment; 2.8L off --needs outpatient followup for permanent access (3) Acute dyspnea --secondary to fluid overload (4) Anemia in CKD (chronic kidney disease) --h/h stable (5) Anemia in ESRD (end-stage renal disease) (6) CHF (congestive heart failure), NYHA class II (7) HTN (hypertension) Minutes to complete discharge: 35 Discharge Summary Reason For Visit: REVISIT/ EVALUATION Current Active Problems Fluid overload (Acute) ESRD on hemodialysis (Chronic) Condition: Improved - Instructions Diet, Activity, Other Instructions: It is important you attend your next regularly scheduled dialysis treatment on Thursday. You have sutures in your right arm which were placed by the providers at [facility]. These sutures are presently clean, dry, and intact. You were given instructions to return to [facility] for follow up this week. It is very important you go for your follow up visit. Referrals: Omar Hernandez MD [Primary Care Provider] - Disposition: HOME - Home Medications Comprehensive Discharge Medication List: Ambulatory Orders Calcium Acetate 667 mg PO TID 09/11/16 Folic Acid 1 mg PO DAILY 09/11/16 Sevelamer Carbonate [Renvela -] 1,600 mg PO BID 09/11/16 Albuterol Sulfate 0.042% [Ventolin 0.042% (Half-Strength) -] 1 amp NEB TID PRN 04/22/17 Cyclobenzaprine HCl [Flexeril -] 10 mg PO HS 04/22/17 Fluticasone Prop 0.05% Nasal [Flonase -] 1 spray NS PRN 04/22/17 This patient is new to me today: Yes Date on this admission: 06/30/17 Emergency Visit: Yes ED Registration Date: 06/27/17 Care time: The patient presented to the Emergency Department on the above date and was hospitalized for further evaluation of their emergent condition. Critical Care patient: No - Discharge Referral Referred to [facility] No
--- NOTE | 2017-06-28 11:56 | CONSULT ---
Consult Consult Specialty:: Nephrology ( Drs. Tavarez/ [place]) Reason for Consultation:: Patient with ESRD on dialysis... Needs dialysis. - History of Present Illness History of Present Illness: This is a 56-year-old man with a significant past medical history of ESRD on Hemodialysis, Polysubstance abuse, HCV, cirrhosis, emphysema on 3L oxygen, pulm HTN, HTN, HLD, MRSA endocarditis status post biologic MVR/AVR, ASD, normal coronaries on cath at [place] in 2014, anemia, recently d/c from [facility], ? reason, presented complaining of orthopnea w/ generalized weakness and worsening b/l LE edema for 2 days. Had a right IJ Permacath placed and last received dialysis 3 days ago. He did not come for dialysis to [facility] Dialysis unit as scheduled. The patient is very abusive, extremely non-compliant with food, fluid and dialysis, disrespectful - History Source History Provided By: Patient, Medical Record - Past Medical History Cardio/Vascular: Yes: CHF (Chronic diastolic HF, Severe Pulm HTN), HTN, Hyperlipdemia, Mitral Insufficiency (s/p MVR (bio)), Pulmonary Hypertension, Other (Severe Tricuspid regurgitation, Endocarditis s/p TVR/MVR, recurrent bacteremia) Pulmonary: Yes: Other (PHTN) Gastrointestinal: Yes: Ascites, Constipation Hepatobiliary: Yes: Hepatitis C Renal/: Yes: Renal Failure, Hemodialysis Psych: Yes: Addictions Musculoskeletal: Yes: Bursitis (left shoulder pain) - Past Surgical History Past Surgical History: Yes: AV Fistula/Graft, Hernia Repair (11/19) - Alcohol/Substance Use Hx Alcohol Use: No History of Substance Use: reports: Cocaine (last use 2 weeks ago), Marijuana - Smoking History Smoking history: Current every day smoker Have you smoked in the past 12 months: Yes Aproximately how many cigarettes per day: 2 - Social History ADL: Independent 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 History of Recent Travel: No Home Medications - Allergies Allergies/Adverse Reactions: Allergies Allergy/AdvReac Type Severity Reaction Status Date / Time Iodinated Contrast- Oral and Allergy Verified 06/27/17 16:11 IV Dye CONTRAST Allergy Hives Uncoded 06/27/17 16:11 - Home Medications Home Medications: Ambulatory Orders Calcium Acetate 667 mg PO TID 09/11/16 Folic Acid 1 mg PO DAILY 09/11/16 Sevelamer Carbonate [Renvela -] 1,600 mg PO BID 09/11/16 Albuterol Sulfate 0.042% [Ventolin 0.042% (Half-Strength) -] 1 amp NEB TID PRN 04/22/17 Cyclobenzaprine HCl [Flexeril -] 10 mg PO HS 04/22/17 Fluticasone Prop 0.05% Nasal [Flonase -] 1 spray NS PRN 04/22/17 Family Disease History - Family Disease History Family Disease History: Other: Father ( of kidney failure), Mother (muscle problems), Sister (healthy and living, HTN) Review of Systems - Review of Systems HENT: reports: No Symptoms Neck: reports: No Symptoms Cardiovascular: reports: Edema. denies: Chest Pain Respiratory: reports: Cough, Orthopnea, SOB, SOB on Exertion Musculoskeletal: reports: Back Pain Neurological: reports: No Symptoms Hematology/Lymphatic: reports: No Symptoms Psychiatric: reports: Anxiety (The patient had been refusing to see a Psychiatrist.) Physical Exam Vital Signs: Vital Signs Temperature 98.1 F 06/28/17 10:42 Pulse Rate 66 06/28/17 10:42 Respiratory Rate 18 06/28/17 10:42 Blood Pressure 103/54 06/28/17 10:42 O2 Sat by Pulse Oximetry (%) 98 06/27/17 16:06 Constitutional: Yes: No Distress, Pallor Eyes: Yes: Conjunctiva Clear HENT: Yes: Normocephalic Neck: Yes: Supple Cardiovascular: Yes: Regular Rate and Rhythm, S1, S2 Respiratory: Yes: Regular, Diminished Gastrointestinal: Yes: Normal Bowel Sounds, Soft Edema: LLE: 2+, RLE: 2+ Neurological: Yes: Alert, Oriented Psychiatric: Yes: Alert, Oriented Labs: CBC, BMP 06/28/17 06:00 06/28/17 06:00 Problem List - Problems (1) Fluid overload Code(s): E87.70 - FLUID OVERLOAD, UNSPECIFIED Qualifiers: Hypervolemia type: other Qualified Code(s): E87.79 - Other fluid overload; E87.79 - Other fluid overload (2) ESRD on hemodialysis Code(s): N18.6 - END STAGE RENAL DISEASE Z99.2 - DEPENDENCE ON RENAL DIALYSIS (3) Acute dyspnea Code(s): R06.00 - DYSPNEA, UNSPECIFIED (4) Anemia in CKD (chronic kidney disease) Code(s): N18.9 - CHRONIC KIDNEY DISEASE, UNSPECIFIED D63.1 - ANEMIA IN CHRONIC KIDNEY DISEASE (5) Anemia in ESRD (end-stage renal disease) Code(s): N18.6 - END STAGE RENAL DISEASE D63.1 - ANEMIA IN CHRONIC KIDNEY DISEASE (6) CHF (congestive heart failure), NYHA class II Code(s): I50.9 - HEART FAILURE, UNSPECIFIED Qualifiers: Congestive heart failure type: unspecified congestive heart failure type Qualified Code(s): I50.9 - Heart failure, unspecified; I50.9 - Heart failure , unspecified; I50.9 - Heart failure, unspecified; I50.9 - Heart failure, unspecified (7) HTN (hypertension) Code(s): I10 - ESSENTIAL (PRIMARY) HYPERTENSION Assessment/Plan 56-year-old man with a significant past medical history of ESRD, polysubstance abuse, HCV, cirrhosis, emphysema pulm HTN, HTN, HLD, MRSA Endocarditis status post biologic MVR/AVR, ASD, end-stage renal disease recently d/c from [facility]. The patient has been found to have excess fluid retention, and was given HD yesterday with UF. The patient refused to stay for the entire treatment. He cut down the treatment. The patient will require Permanent access. Needs evaluation by Dr. Larson. Will f/u with you. If discharged, the above could be done as out patient. Thank you. Ashley Tavarez MD
--- NOTE | 2017-06-28 13:24 | CON.CARD ---
Consult Consult Specialty:: cardiology Reason for Consultation:: multiple CAD risks; volume overload (ESRD) - History of Present Illness History of Present Illness: 56-year-old male well known to this institution with multiple medical problems including end-stage renal disease status post recent catheter placement secondary to nonfunctioning fistula, last dialysis was at [facility] and scheduled for outpatient dialysis today represents here with complaints of volume overload needing more urgent dialysis. Vitals as noted Agree with exam as outlined Case discussed with patient's director of strategic initiatives, Dr. Briones, who recommends admission and dialysis. Will proceed accordingly. - History Source History Provided By: Patient, Medical Record Limitations to Obtaining History: No Limitations - Past Medical History Cardio/Vascular: Yes: CHF (Chronic diastolic HF, Severe Pulm HTN), HTN, Hyperlipdemia, Mitral Insufficiency (s/p MVR (bio)), Pulmonary Hypertension, Other (Severe Tricuspid regurgitation, Endocarditis s/p TVR/MVR, recurrent bacteremia) Pulmonary: Yes: Other (PHTN) Gastrointestinal: Yes: Ascites, Constipation Hepatobiliary: Yes: Hepatitis C Renal/: Yes: Renal Failure, Hemodialysis Psych: Yes: Addictions Musculoskeletal: Yes: Bursitis (left shoulder pain) - Past Surgical History Past Surgical History: Yes: AV Fistula/Graft, Hernia Repair (11/19) - Alcohol/Substance Use Hx Alcohol Use: No History of Substance Use: reports: Cocaine (last use 2 weeks ago), Marijuana - Smoking History Smoking history: Current every day smoker Have you smoked in the past 12 months: Yes Aproximately how many cigarettes per day: 2 - Social History ADL: Independent 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 History of Recent Travel: No Home Medications - Allergies Allergies/Adverse Reactions: Allergies Allergy/AdvReac Type Severity Reaction Status Date / Time Iodinated Contrast- Oral and Allergy Verified 06/27/17 16:11 IV Dye CONTRAST Allergy Hives Uncoded 06/27/17 16:11 - Home Medications Home Medications: Ambulatory Orders Calcium Acetate 667 mg PO TID 09/11/16 Folic Acid 1 mg PO DAILY 09/11/16 Sevelamer Carbonate [Renvela -] 1,600 mg PO BID 09/11/16 Albuterol Sulfate 0.042% [Ventolin 0.042% (Half-Strength) -] 1 amp NEB TID PRN 04/22/17 Cyclobenzaprine HCl [Flexeril -] 10 mg PO HS 04/22/17 Fluticasone Prop 0.05% Nasal [Flonase -] 1 spray NS PRN 04/22/17 Family Disease History - Family Disease History Family Disease History: Other: Father ( of kidney failure), Mother (muscle problems), Sister (healthy and living, HTN) Vital Signs: Vital Signs Temperature 98.1 F 06/28/17 10:42 Pulse Rate 66 06/28/17 10:42 Respiratory Rate 18 06/28/17 10:42 Blood Pressure 103/54 06/28/17 10:42 O2 Sat by Pulse Oximetry (%) 98 06/27/17 16:06 - Other Data Labs, Other Data: CBC, BMP 06/28/17 06:00 06/28/17 06:00 Troponin, BNP 06/27/17 06/28/17 22:40 08:15 Troponin I 0.06 H 0.06 H Troponin, BNP 06/27/17 06/28/17 22:40 08:15 Troponin I 0.06 H 0.06 H
[2017-06-28 13:54] LABS: THYROID STIMULATING HORMONE 11.3 uIU/ml (0.358-3.74)
[2017-06-28 15:40] VITALS: BP 93/49; PULSE 64; TEMP 98
[2017-07-01 00:09] LABS: HEP B SURFACE AB Non Reactive (.)
== END 2017-06-28 15:48 | disposition home or self-care (01) ==
LOC: JER 16:01 → JERBED 19:26 → J7W 23:41
PROVIDERS: ADMIT Internal Medicine; ATTEND Nurse Practitioner Acute Care
PROC: 5A1D70Z Performance of Urinary Filtration, Intermittent, Less than 6 Hours Per Day (ICD-10-PCS; principal; 2017-06-27)
DX: I12.0 Hypertensive chronic kidney disease with stage 5 chronic kidney disease or end stage renal disease (principal); N18.6 End stage renal disease; E87.79 Other fluid overload; F17.210 Nicotine dependence, cigarettes, uncomplicated; I27.20 Pulmonary hypertension, unspecified; E78.5 Hyperlipidemia, unspecified; N40.0 Benign prostatic hyperplasia without lower urinary tract symptoms; D64.9 Anemia, unspecified; J43.9 Emphysema, unspecified; B18.2 Chronic viral hepatitis C; K74.60 Unspecified cirrhosis of liver; Z91.041 Radiographic dye allergy status; Z95.2 Presence of prosthetic heart valve; Z99.2 Dependence on renal dialysis; Z99.81 Dependence on supplemental oxygen; Z86.14 Personal history of Methicillin resistant Staphylococcus aureus infection
CPT/HCPCS: 36415; 71010-TC; 80048; 80053; 80061; 82550; 82553; 83721; 83735; 83880; 84100; 84443; 84484; 85025; 86704; 86706; 86708; 86803; 87340; 93005; 93010; 99282-25; G0378; J0885

== ENCOUNTER 2017-07-03 15:00 | Inpatient (IN) | payer OTHER ==
--- NOTE | 2017-07-03 17:11 | PDOC ---
History of Present Illness - General History Source: Patient Exam Limitations: No Limitations - History of Present Illness Initial Comments: 07/03/17 17:39 The patient is a 57 year old male, with a significant past medical history of hypertension, hyperlipidemia, ESRD(on dialysis, T, Th, Sat), anemia, asthma, CAD (s/p valve replacements x2)who presents to the emergency department sent by Dr. Dos Santos for evaluation of hypotension and low pulse ox. Patient states he was following up with Dr. Dos Santos today s/p being discharged from the hospital, because his systolic bp has been in the 70s. At Dr. Rogel office patient reports he experienced shortness of breath, but denies any chest pain, diaphoresis, palpitations, or lower extremity edema. Patient is currently on O2. As per Dr. Dos Santos, the patients O2 Sat was 77 in her office earlier today , so she sent him to follow up with Dr. San, but patient never made it. Patient reports his systolic bp was in the 130s as of one month ago. 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 San stopped his hypertension meds as of a couple of weeks ago, because his systolic was in the 70s. Patient reports he has a history of multiple blood transfusions. Patient reports recently having the fistula in his left arm removed at [facility] by Dr. Larson due infection in the LUW. Patient reports Dr. Larson placed a catheter in his right chest, and his last full dialysis treatment was yesterday (07/02), where he had 4.5 kilos removed. He denies any fever, chills, headache , or dizziness. He denies any abdominal pain, nausea, vomiting, diarrhea, or constipation. He denies any dysuria, hematuria, or changes in urination. Allergies: Iodinated Contrast(Oral and IV Dye) Past Surgical History: Valve replacements X2, lung sx (h/o MRSA pleural tissue) Social History: Non smoker. ETOH abuse. No recreational drug use. PCP: Dr. Dos Santos Vascular Surgeon: Dr. Larson Predatory Animal Exterminator: Dr. Ashley Tavarez <Ciarra Lao - Last Filed: 07/03/17 17:45> <Patricia Yeung - Last Filed: 07/03/17 18:54> - General Chief Complaint: Revisit, Lab Variance Stated Complaint: REVISIT/ EVALUATION Time Seen by Provider: 07/03/17 15:51 Past History <Ciarra Lao - Last Filed: 07/03/17 17:45> - Past Medical History Anemia: Yes Asthma: Yes Cancer: No Cardiac Disorders: Yes (2X VALVE REPLACEMENT) CVA: No COPD: No CHF: No Dementia: No Diabetes: No Dialysis: Yes () GI Disorders: Yes Disorders: Yes (ENLARGED PROSTATE) HTN: Yes Hypercholesterolemia: Yes Liver Disease: No Seizures: No Thyroid Disease: No - Surgical History Abdominal Surgery: No Appendectomy: No Cardiac Surgery: Yes (2 VALVES REPLACED 04/2015) Cholecystectomy: No Lung Surgery: Yes (h/o MRSA pleural tissue) - Immunization History Immunization Up to Date: No - Suicide/Smoking/Psychosocial Hx Smoking Status: Yes Smoking History: Never smoked Have you smoked in the past 12 months: Yes Number of Cigarettes Smoked Daily: 2 Information on smoking cessation initiated: No 'Breaking Loose' booklet given: 06/27/17 Hx Alcohol Use: No Drug/Substance Use Hx: No Substance Use Type: None Hx Substance Use Treatment: Yes (rehab, detox) <Patricia Yeung - Last Filed: 07/03/17 18:54> - Past Medical History Allergies/Adverse Reactions: Allergies Allergy/AdvReac Type Severity Reaction Status Date / Time Iodinated Contrast- Oral and Allergy Verified 07/03/17 15:20 IV Dye CONTRAST Allergy Hives Uncoded 07/03/17 15:20 Home Medications: Ambulatory Orders Calcium Acetate 667 mg PO TID 09/11/16 Folic Acid 1 mg PO DAILY 09/11/16 Sevelamer Carbonate [Renvela -] 1,600 mg PO BID 09/11/16 Albuterol Sulfate 0.042% [Ventolin 0.042% (Half-Strength) -] 1 amp NEB TID PRN 04/22/17 Cyclobenzaprine HCl [Flexeril -] 10 mg PO HS 04/22/17 Fluticasone Prop 0.05% Nasal [Flonase -] 1 spray NS PRN 04/22/17 Oxycodone HCl 10 mg PO QID PRN 07/03/17 Tamsulosin HCl 0.4 mg PO DAILY 07/03/17 Review of Systems - Review of Systems Able to Perform ROS?: Yes Comments:: 07/03/17 17:39 GENERAL/CONSTITUTIONAL: Yes hypotension. No fever or chills. No weakness. HEAD, EYES, EARS, NOSE AND THROAT: No change in vision. No ear pain or discharge. No sore throat. GASTROINTESTINAL: No nausea, vomiting, diarrhea or constipation. GENITOURINARY: No dysuria, frequency, or change in urination. CARDIOVASCULAR: Yes shortness of breath and low pulse ox. No chest pain. RESPIRATORY: No cough, wheezing, or hemoptysis. MUSCULOSKELETAL: No joint or muscle swelling or pain. No neck or back pain. SKIN: No rash NEUROLOGIC: No headache, vertigo, loss of consciousness, or change in strength/ sensation. ENDOCRINE: No increased thirst. No abnormal weight change. HEMATOLOGIC/LYMPHATIC: Yes anemia. No easy bleeding, or history of blood clots. ALLERGIC/IMMUNOLOGIC: No hives or skin allergy. <Ciarra Lao - Last Filed: 07/03/17 17:45> *Physical Exam - Vital Signs Last Vital Signs Temp Pulse Resp BP Pulse Ox 97.5 F L 78 18 95/50 100 07/03/17 15:17 07/03/17 15:17 07/03/17 15:17 07/03/17 15:17 07/03/17 15:17 - Physical Exam Comments: 07/03/17 17:39 Constitutional: Awake, alert, oriented. No acute distress. Head: Normocephalic. Atraumatic Eyes: PERRL. EOMI. Conjunctivae are not pale. ENT: Mucous membranes are moist and intact. Posterior pharynx without exudates or erythema. Uvula midline. Neck: Supple. Full ROM. No lymphadenopathy. Cardiovascular: Regular rate. Regular rhythm. S1, S2 regular. Distal pulses are 2+ and symmetric. Pulmonary/Chest: Diminished breath sounds at the bases. No evidence of respiratory distress. No wheezing, rales or rhonchi. Abdominal: Soft and non-distended. There is no tenderness. No rebound, guarding or rigidity. No organomegaly. No palpable masses. Good bowel sounds. Back: No CVA tenderness. Musculoskeletal: Left upper extremity fistula with sutures in place. Mild edema of the left upper extremity but no active drainage, erythema, or increased warmth. 2+ pitting edema of the bilateral lower extremities. No cyanosis. No clubbing. Full range of motion in all extremities. No calf tenderness. Radial/pedal pulses are intact and 2+ bilaterally Skin: Skin is warm and dry. No petechiae. No purpura. Neurological: Alert and oriented to person, place, and time. Cranial nerves II -XII are grossly intact. Normal speech. Strength is grossly symmetric. No sensory deficits. Psychiatric: Good eye contact. Normal interaction, affect and behavior. <Ciarra Lao - Last Filed: 07/03/17 17:45> - Vital Signs Last Vital Signs Temp Pulse Resp BP Pulse Ox 97.5 F L 78 18 95/50 100 07/03/17 15:17 07/03/17 15:17 07/03/17 15:17 07/03/17 15:17 07/03/17 15:17 <Patricia Yeung - Last Filed: 07/03/17 18:54> Heart Score/ECG Review - ECG Intrepretation Comment:: 07/03/17 18:10 sinus at 67, nl axis, rvh, no acute st/t wave findings <Patricia Yeung - Last Filed: 07/03/17 18:54> ED Treatment Course - LABORATORY CBC & Chemistry Diagram: 07/03/17 17:29 07/03/17 17:29 - RADIOLOGY Radiology Studies Ordered: Category Date Time Status CHEST X-RAY PORTABLE* [RAD] Stat Radiology 07/03/17 17:03 Ordered <Patricia Yeung - Last Filed: 07/03/17 18:54> Medical Decision Making - Medical Decision Making 07/03/17 17:40 First call placed to Dr. Dos Santos at 17:06. Awaiting call back. Case discussed with Dr. Dos Santos at 17:30. <Ciarra Lao - Last Filed: 07/03/17 17:45> - Medical Decision Making 07/03/17 17:06 a/p: 57yo male with hypotension and low blood counts -sent in by Dr. Dos Santos. Will call dr. dos santos for labs from the office -labs -type and screen and poss transfusion -follows with iliana mauricio rocco, jolly mathew cxr for sob, though most likely from anemia if the patient had low blood counts in the office -esrd on hd t/th/sat will most likely need admission 07/03/17 17:[address] Dos Santos - pt had low bp and low pulse ox in the office. she sent the patient to DR. San, but the patient chose to come to the ED. They were unable to check labs on the patient in the office. Pt did not go see Dr. San today. 07/03/17 18:53 pt signed out to the oncoming ED physician pending the lab results and xray. pt will be admitted to Dr. Dos Santos. <Patricia Yeung - Last Filed: 07/03/17 18:54> *DC/Admit/Observation/Transfer - Attestations Scribe Attestion: 07/03/17 17:40 Documentation prepared by Ciarra Lao, acting as biomedical engineering technician for Patricia Yeung DO. <Ciarra Lao - Last Filed: 07/03/17 17:45> - Attestations Physician Attestion: 07/03/17 18:54 I, Dr. Patricia Yeung DO, attest that this document has been prepared under my direction and personally reviewed by me in its entirety. I further attest, that it accurately reflects all work, treatment, procedures and medical decision -making performed by me. <Patricia Yeung - Last Filed: 07/03/17 18:54> Diagnosis at time of Disposition: SOB (shortness of breath) - Referrals Referrals: Omar Hernandez MD [Primary Care Provider] -
[2017-07-03 18:13] LABS: BASOPHIL 1.3 % (0-2.0); EOSINOPHIL 10.9 % (0-4.5); MCH 31.2 pg (25.7-33.7); MCHC 32.3 g/dl (32.0-35.9); MEAN CELL VOLUME 96.5 fl (80-96); MEAN PLT VOLUME 9.8 fl (7.5-11.1); NEUTROPHILS 72.9 % (42.8-82.8); PLATELET COUNT 205 K/MM3 (134-434); RDW 18.4 % (11.9-15.9); WHITE BLOOD COUNT 4.5 K/mm3 (4.0-10.0)
[2017-07-03 18:50] LABS: INR 1.22 (0.82-1.09); PROTHROMBIN TIME (PATIENT) 13.8 SEC (9.98-11.88)
[2017-07-03 19:21] LABS: ALBUMIN 1.7 g/dl (3.4-5.0); ANION GAP 8 (8-16); BILIRUBIN,TOTAL 0.3 mg/dL (0.2-1.0); CALCIUM 7.8 mg/dL (8.5-10.1); CO2 29 mmol/L (21-32); CREATININE 7.2 mg/dL (0.7-1.3); GLUCOSE,RANDOM 98 mg/dL (74-106); MAGNESIUM 2.2 mg/dL (1.8-2.4); SGOT/AST 26 U/L (15-37); SGPT/ALT 15 U/L (12-78); TOT PROT 5.4 g/dl (6.4-8.2)
[2017-07-03 19:23] LABS: ALK PHOS 128 U/L (45-117); CPK 254 IU/L (39-308); TROPONIN I 0.07 ng/ml (0.00-0.05)
--- NOTE | 2017-07-03 19:37 | PDOC ---
*Physical Exam - Vital Signs Last Vital Signs Temp Pulse Resp BP Pulse Ox 97.5 F L 78 18 95/50 100 07/03/17 15:17 07/03/17 15:17 07/03/17 15:17 07/03/17 15:17 07/03/17 16:05 <[address] - Last Filed: 07/03/17 21:08> - Vital Signs Last Vital Signs Temp Pulse Resp BP Pulse Ox 97.5 F L 78 18 95/50 100 07/03/17 15:17 07/03/17 15:17 07/03/17 15:17 07/03/17 15:17 07/03/17 16:05 <Yakelin Obrien - Last Filed: 07/03/17 22:18> ED Treatment Course - LABORATORY CBC & Chemistry Diagram: 07/03/17 17:29 07/03/17 17:29 - ADDITIONAL ORDERS Additional order review: Laboratory Results 07/03/17 07/03/17 07/03/17 17:37 17:37 17:29 PT with INR 13.80 H INR 1.22 H PTT (Actin FS) 22.7 L D Sodium Potassium Chloride Carbon Dioxide Anion Gap BUN Creatinine Creat Clearance w eGFR Random Glucose Calcium Magnesium Total Bilirubin AST ALT Alkaline Phosphatase Creatine Kinase Troponin I B-Natriuretic Peptide 59457.03 H Total Protein Albumin 07/03/17 17:29 PT with INR INR PTT (Actin FS) Sodium 142 Potassium 3.6 Chloride 105 Carbon Dioxide 29 Anion Gap 8 BUN 25 H Creatinine 7.2 H Creat Clearance w eGFR 7.95 Random Glucose 98 D Calcium 7.8 L Magnesium 2.2 Total Bilirubin 0.3 AST 26 ALT 15 D Alkaline Phosphatase 128 H Creatine Kinase 254 Troponin I 0.07 H B-Natriuretic Peptide Total Protein 5.4 L Albumin 1.7 L 07/03/17 17:29 RBC 3.15 L D MCV 96.5 H MCHC 32.3 RDW 18.4 H D MPV 9.8 Neutrophils % 72.9 Lymphocytes % 7.5 L D Monocytes % 7.4 Eosinophils % 10.9 H Basophils % 1.[address] <Vinnie [address] - Last Filed: 07/03/17 21:08> - LABORATORY CBC & Chemistry Diagram: 07/03/17 17:29 07/03/17 17:29 - ADDITIONAL ORDERS Additional order review: Laboratory Results 07/03/17 07/03/17 07/03/17 17:37 17:37 17:29 PT with INR 13.80 H INR 1.22 H PTT (Actin FS) 22.7 L D Sodium Potassium Chloride Carbon Dioxide Anion Gap BUN Creatinine Creat Clearance w eGFR Random Glucose Calcium Magnesium Total Bilirubin AST ALT Alkaline Phosphatase Creatine Kinase Troponin I B-Natriuretic Peptide 73842.03 H Total Protein Albumin Blood Type Antibody Screen 07/03/17 07/03/17 17:29 17:29 PT with INR INR PTT (Actin FS) Sodium 142 Potassium 3.6 Chloride 105 Carbon Dioxide 29 Anion Gap 8 BUN 25 H Creatinine 7.2 H Creat Clearance w eGFR 7.95 Random Glucose 98 D Calcium 7.8 L Magnesium 2.2 Total Bilirubin 0.3 AST 26 ALT 15 D Alkaline Phosphatase 128 H Creatine Kinase 254 Troponin I 0.07 H B-Natriuretic Peptide Total Protein 5.4 L Albumin 1.7 L Blood Type O POSITIVE Antibody Screen Negative 07/03/17 17:29 RBC 3.15 L D MCV 96.5 H MCHC 32.3 RDW 18.4 H D MPV 9.8 Neutrophils % 72.9 Lymphocytes % 7.5 L D Monocytes % 7.4 Eosinophils % 10.9 H Basophils % 1.3 <Yakelin Obrien A - Last Filed: 07/03/17 22:18> Medical Decision Making - Medical Decision Making 07/03/17 21:08 Volume Overload seen on CXR, Labs Reviewed. Will admit to Dr. Gee <Vinnie Lane - Last Filed: 07/03/17 21:08> - Medical Decision Making 07/03/17 21:[address] Gee. [phone] 07/03/17 21:[address] Gee a second time. 07/03/17 22:[address] Gee a third time. 07/03/17 22:[address] Hernandez who will assume care for patient. 07/03/17 22:[address] Gee. <Yakelin Obrien A - Last Filed: 07/03/17 22:18> *DC/Admit/Observation/Transfer - Discharge Dispostion Admit: Yes - Attestations Physician Attestion: 07/03/17 19:37 I, Dr. Vinnie Lane, attest that this document has been prepared under my direction and personally reviewed by me in its entirety. I further attest, that it accurately reflects all work, treatment, procedures and medical decision -making performed by me. <Vinnie Lane - Last Filed: 07/03/17 21:08> <Yakelin Obrien - Last Filed: 07/03/17 22:18> Diagnosis at time of Disposition: ESRD (end stage renal disease) on dialysis, SOB (shortness of breath), ESRD on hemodialysis, H/O mitral valve repair Fluid overload Qualifiers: Hypervolemia type: unspecified Qualified Code(s): E87.70 - Fluid overload, unspecified - Discharge Dispostion Condition at time of disposition: Improved - Referrals - Patient Instructions - Post Discharge Activity
[2017-07-03] MEDS ORDERED: ALBUTEROL SO4 2.5/IPRATROPIUM 0.5 INH SOL 3 ML VIAL.NEB. NEB ONE ×2 (20:55→21:14)
[2017-07-04 00:59] VITALS: BMI 22.3
[2017-07-04 01:19] LABS: TROPONIN I 0.07 ng/ml (0.00-0.05)
[2017-07-04] MEDS ORDERED: ALBUTEROL SO4 2.5/IPRATROPIUM 0.5 INH SOL 3 ML VIAL.NEB. NEB ONE (02:45)
[2017-07-04] MEDS: CALCIUM ACETATE 667 MG CAPSULE (FP) PO SCH ×3 (05:49→21:23)
[2017-07-04 07:23] LABS: BASOPHIL 1.4 % (0-2.0); MCH 31.3 pg (25.7-33.7); MCHC 32.3 g/dl (32.0-35.9); MEAN CELL VOLUME 97.1 fl (80-96); MEAN PLT VOLUME 9.4 fl (7.5-11.1); NEUTROPHILS 67.1 % (42.8-82.8); PLATELET COUNT 196 K/MM3 (134-434); RDW 18.6 % (11.9-15.9); WHITE BLOOD COUNT 5.5 K/mm3 (4.0-10.0)
[2017-07-04 07:51] LABS: ALBUMIN 1.6 g/dl (3.4-5.0); ANION GAP 9 (8-16); CALCIUM 7.4 mg/dL (8.5-10.1); CO2 27 mmol/L (21-32); GLUCOSE,RANDOM 95 mg/dL (74-106); SGOT/AST 23 U/L (15-37); SGPT/ALT 14 U/L (12-78)
[2017-07-04 08:01] LABS: ALK PHOS 120 U/L (45-117); BILIRUBIN,TOTAL 0.3 mg/dL (0.2-1.0); CPK 222 IU/L (39-308); TOT PROT 4.9 g/dl (6.4-8.2); TROPONIN I 0.06 ng/ml (0.00-0.05)
--- NOTE | 2017-07-04 08:42 | CON.CARD ---
Consult Consult Specialty:: Cardiology for Jaswinder - History of Present Illness History of Present Illness: The patient is a 57 year old male, with a significant past medical history of hypertension, hyperlipidemia, ESRD(on dialysis, T, , Sat), anemia, asthma, CAD (s/p valve replacements x2)who presents to the emergency department sent by Dr. Gee for evaluation of hypotension and low pulse ox. Patient states he was following up with Dr. Gee today s/p being discharged from the hospital, because his systolic bp has been in the 70s. At Dr. Rogel office patient reports he experienced shortness of breath, but denies any chest pain, diaphoresis, palpitations, or lower extremity edema. Patient is currently on O2. As per Dr. Gee, the patients O2 Sat was 77 in her office earlier today , so she sent him to follow up with Dr. San, but patient never made it. Patient reports his systolic bp was in the 130s as of one month ago. Patient reports his Clinician Oncology, Dr. San stopped his hypertension meds as of a couple of weeks ago, because his systolic was in the 70s. Patient reports he has a history of multiple blood transfusions. Patient reports recently having the fistula in his left arm removed at [facility] by Dr. Larson due infection in the LUW. Patient reports Dr. Larson placed a catheter in his right chest, and his last full dialysis treatment was yesterday (07/02), where he had 4.5 kilos removed. He denies any fever, chills, headache , or dizziness. He denies any abdominal pain, nausea, vomiting, diarrhea, or constipation. He denies any dysuria, hematuria, or changes in urination. Allergies: Iodinated Contrast(Oral and IV Dye) Past Surgical History: Valve replacements X2, lung sx (h/o MRSA pleural tissue) Social History: Non smoker. ETOH abuse. No recreational drug use. PCP: Dr. Gee Vascular Surgeon: Dr. Larson [facility]: Dr. Ashley Tavarez [facility] ESRD on HD, chronic HTN, MV and TV repair several years ago at [facility] for Endocarditis, residual ASD from transeptal puncture from that operation, history of cocaine abuse, ascites from right sided CHF and PHTN, ocular "TIA" several months ago - History Source History Provided By: Patient, Medical Record - Past Medical History Cardio/Vascular: Yes: CHF (Chronic diastolic HF, Severe Pulm HTN), HTN, Hyperlipdemia, Mitral Insufficiency (s/p MVR (bio)), Pulmonary Hypertension, Other (Severe Tricuspid regurgitation, Endocarditis s/p TVR/MVR, recurrent bacteremia) Pulmonary: Yes: Other (PHTN) Gastrointestinal: Yes: Ascites, Constipation Hepatobiliary: Yes: Hepatitis C Renal/: Yes: Renal Failure, Hemodialysis Psych: Yes: Addictions Musculoskeletal: Yes: Bursitis (left shoulder pain) - Past Surgical History Past Surgical History: Yes: AV Fistula/Graft, Hernia Repair (11/19) - Alcohol/Substance Use Hx Alcohol Use: No History of Substance Use: reports: Cocaine (last use 2 weeks ago), Marijuana - Smoking History Smoking history: Current every day smoker Have you smoked in the past 12 months: Yes Aproximately how many cigarettes per day: 3 - Social History ADL: Independent 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 History of Recent Travel: No Home Medications - Allergies Allergies/Adverse Reactions: Allergies Allergy/AdvReac Type Severity Reaction Status Date / Time Iodinated Contrast- Oral and Allergy Verified 07/03/17 15:20 IV Dye CONTRAST Allergy Hives Uncoded 07/03/17 15:20 - Home Medications Home Medications: Ambulatory Orders Calcium Acetate 667 mg PO TID 09/11/16 Folic Acid 1 mg PO DAILY 09/11/16 Sevelamer Carbonate [Renvela -] 1,600 mg PO BID 09/11/16 Albuterol Sulfate 0.042% [Ventolin 0.042% (Half-Strength) -] 1 amp NEB TID PRN 04/22/17 Cyclobenzaprine HCl [Flexeril -] 10 mg PO HS 04/22/17 Fluticasone Prop 0.05% Nasal [Flonase -] 1 spray NS PRN 04/22/17 Oxycodone HCl 10 mg PO QID PRN 07/03/17 Tamsulosin HCl 0.4 mg PO DAILY 07/03/17 Family Disease History - Family Disease History Family Disease History: Other: Father ( of kidney failure), Mother (muscle problems), Sister (healthy and living, HTN) Review of Systems - Review of Systems Constitutional: reports: No Symptoms Eyes: reports: No Symptoms HENT: reports: No Symptoms Neck: reports: No Symptoms Cardiovascular: reports: No Symptoms Gastrointestinal: reports: No Symptoms Genitourinary: reports: No Symptoms Breasts: reports: No Symptoms Reported Musculoskeletal: reports: No Symptoms Integumentary: reports: No Symptoms Neurological: reports: No Symptoms Endocrine: reports: No Symptoms Hematology/Lymphatic: reports: No Symptoms Psychiatric: reports: No Symptoms Vital Signs: Vital Signs Temperature 98.2 F 07/04/17 06:00 Pulse Rate 72 07/04/17 06:00 Respiratory Rate 18 07/04/17 06:00 Blood Pressure 100/61 07/04/17 06:00 O2 Sat by Pulse Oximetry (%) 98 07/03/17 22:40 Constitutional: Yes: Well Nourished, No Distress, Calm Eyes: Yes: WNL, Conjunctiva Clear, EOM Intact HENT: Yes: WNL, Atraumatic, Normocephalic Neck: Yes: WNL, Supple, Trachea Midline Respiratory: Yes: WNL, Regular, CTA Bilaterally Gastrointestinal: Yes: WNL, Normal Bowel Sounds Renal/: Yes: WNL Cardiovascular: Yes: WNL, Regular Rate and Rhythm Heart Sounds: Yes: S1, S2 Murmur: Yes: Systolic Murmur Musculoskeletal: Yes: WNL Extremities: Yes: WNL Edema: Yes Edema: LLE: 2+, RLE: 2+ Integumentary: Yes: WNL Neurological: Yes: WNL, Alert, Oriented ...Motor Strength: WNL Psychiatric: Yes: WNL, Alert, Oriented - Other Data Labs, Other Data: CBC, BMP 07/04/17 06:00 INR, PTT INR 1.22 (0.82-1.09) H 07/03/17 17:37 Troponin, BNP 07/04/17 07/04/17 00:15 06:00 Troponin I 0.07 H Cancelled Troponin, BNP 07/04/17 07/04/17 00:15 06:00 Troponin I 0.07 H Cancelled Laboratory Tests 07/03/17 07/03/17 07/03/17 17:29 17:29 17:29 WBC 4.5 RBC 3.15 L D Hgb 9.8 L D Hct 30.4 L D MCV 96.5 H MCH 31.2 MCHC 32.3 RDW 18.4 H D Plt Count 205 MPV 9.8 Neutrophils % 72.9 Lymphocytes % 7.5 L D Monocytes % 7.4 Eosinophils % 10.9 H Basophils % 1.3 PT with INR INR PTT (Actin FS) Sodium 142 Potassium 3.6 Chloride 105 Carbon Dioxide 29 Anion Gap 8 BUN 25 H Creatinine 7.2 H Creat Clearance w eGFR 7.95 Random Glucose 98 D Calcium 7.8 L Magnesium 2.2 Total Bilirubin 0.3 AST 26 ALT 15 D Alkaline Phosphatase 128 H Creatine Kinase 254 Creatine Kinase Index 1.4 CK-MB (CK-2) 3.770 H Troponin I 0.07 H B-Natriuretic Peptide Total Protein 5.4 L Albumin 1.7 L TSH Blood Type O POSITIVE Antibody Screen Negative 07/03/17 07/03/17 07/03/17 17:29 17:37 17:37 WBC RBC Hgb Hct MCV MCH MCHC RDW Plt Count MPV Neutrophils % Lymphocytes % Monocytes % Eosinophils % Basophils % PT with INR 13.80 H INR 1.22 H PTT (Actin FS) 22.7 L D Sodium Potassium Chloride Carbon Dioxide Anion Gap BUN Creatinine Creat Clearance w eGFR Random Glucose Calcium Magnesium Total Bilirubin AST ALT Alkaline Phosphatase Creatine Kinase Creatine Kinase Index CK-MB (CK-2) Troponin I B-Natriuretic Peptide 66777.03 H Total Protein Albumin TSH Blood Type Antibody Screen 07/04/17 07/04/17 07/04/17 00:15 06:00 06:00 WBC 5.5 RBC 2.74 L Hgb 8.6 L D Hct 26.6 L MCV 97.1 H MCH 31.3 MCHC 32.3 RDW 18.6 H Plt Count 196 MPV 9.4 Neutrophils % 67.1 Lymphocytes % 8.0 Monocytes % 9.5 Eosinophils % 14.0 H Basophils % 1.4 PT with INR INR PTT (Actin FS) Sodium 141 Potassium 3.8 Chloride 105 Carbon Dioxide 27 Anion Gap 9 BUN 26 H Creatinine Creat Clearance w eGFR 7.04 Random Glucose 95 Calcium 7.4 L Magnesium Total Bilirubin 0.3 AST 23 ALT 14 Alkaline Phosphatase 120 H Creatine Kinase 223 222 Creatine Kinase Index 1.3 CK-MB (CK-2) 2.977 Troponin I 0.07 H 0.06 H B-Natriuretic Peptide Total Protein 4.9 L Albumin 1.6 L TSH 11.40 H D Blood Type Antibody Screen 07/04/17 06:00 WBC RBC Hgb Hct MCV MCH MCHC RDW Plt Count MPV Neutrophils % Lymphocytes % Monocytes % Eosinophils % Basophils % PT with INR INR PTT (Actin FS) Sodium Potassium Chloride Carbon Dioxide Anion Gap BUN Creatinine Creat Clearance w eGFR Random Glucose Calcium Magnesium Total Bilirubin AST ALT Alkaline Phosphatase Creatine Kinase Cancelled Creatine Kinase Index CK-MB (CK-2) Troponin I Cancelled B-Natriuretic Peptide Total Protein Albumin TSH Blood Type Antibody Screen Imaging - Results Chest X-ray: Image Reviewed (chf s/p ohs) EKG: Image Reviewed (sr rvh rep abn TDS motion artifacts) Problem List - Problems (1) ESRD (end stage renal disease) on dialysis Code(s): N18.6 - END STAGE RENAL DISEASE Z99.2 - DEPENDENCE ON RENAL DIALYSIS (2) Fluid overload Code(s): E87.70 - FLUID OVERLOAD, UNSPECIFIED Qualifiers: Hypervolemia type: unspecified Qualified Code(s): E87.70 - Fluid overload, unspecified; E87.70 - Fluid overload, unspecified (3) H/O mitral valve repair Code(s): Z98.890 - OTHER SPECIFIED POSTPROCEDURAL STATES (4) SOB (shortness of breath) Code(s): R06.02 - SHORTNESS OF BREATH (5) ESRD on hemodialysis Code(s): N18.6 - END STAGE RENAL DISEASE Z99.2 - DEPENDENCE ON RENAL DIALYSIS (6) Acute dyspnea Code(s): R06.00 - DYSPNEA, UNSPECIFIED (7) Acute electrocardiogram changes Code(s): R94.31 - ABNORMAL ELECTROCARDIOGRAM [ECG] [EKG] (8) Acute on chronic combined systolic and diastolic CHF, NYHA class 4 Code(s): I50.43 - ACUTE ON CHRONIC COMBINED SYSTOLIC AND DIASTOLIC HRT FAIL (9) Anemia in CKD (chronic kidney disease) Code(s): N18.9 - CHRONIC KIDNEY DISEASE, UNSPECIFIED D63.1 - ANEMIA IN CHRONIC KIDNEY DISEASE (10) CHF (congestive heart failure) Code(s): I50.9 - HEART FAILURE, UNSPECIFIED (11) DVT prophylaxis Code(s): PGZ4919 - (12) Dizziness Code(s): R42 - DIZZINESS AND GIDDINESS (13) Dyspnea Code(s): R06.00 - DYSPNEA, UNSPECIFIED (14) Elevated troponin I level Code(s): R74.8 - ABNORMAL LEVELS OF OTHER SERUM ENZYMES (15) Empyema Code(s): J86.9 - PYOTHORAX WITHOUT FISTULA (16) Encounter for slow continuous ultrafiltration Code(s): Z99.2 - DEPENDENCE ON RENAL DIALYSIS (17) Endocarditis Code(s): I38 - ENDOCARDITIS, VALVE UNSPECIFIED (18) GI bleed Code(s): K92.2 - GASTROINTESTINAL HEMORRHAGE, UNSPECIFIED Qualifiers: GI bleed type/associated pathology: unspecified gastrointestinal hemorrhage type Qualified Code(s): K92.2 - Gastrointestinal hemorrhage, unspecified; K92.2 - Gastrointestinal hemorrhage, unspecified (19) Low back pain Code(s): M54.5 - LOW BACK PAIN Qualifiers: Chronicity: acute Back pain laterality: bilateral Sciatica presence : without sciatica Qualified Code(s): M54.5 - Low back pain; M54.5 - Low back pain (20) Lower abdominal pain Code(s): R10.30 - LOWER ABDOMINAL PAIN, UNSPECIFIED (21) NSVT (nonsustained ventricular tachycardia) Code(s): I47.2 - VENTRICULAR TACHYCARDIA (22) Pneumonia Code(s): J18.9 - PNEUMONIA, UNSPECIFIED ORGANISM Qualifiers: Pneumonia type: due to unspecified organism Laterality: right Lung location: lower lobe of lung Qualified Code(s): J18.1 - Lobar pneumonia, unspecified organism; J18.1 - Lobar pneumonia, unspecified organism; J18.1 - Lobar pneumonia, unspecified organism (23) Precordial chest pain Code(s): R07.2 - PRECORDIAL PAIN (24) Rectal bleeding Code(s): K62.5 - HEMORRHAGE OF ANUS AND RECTUM (25) Renal osteodystrophy Code(s): N25.0 - RENAL OSTEODYSTROPHY (26) SVT (supraventricular tachycardia) Code(s): I47.1 - SUPRAVENTRICULAR TACHYCARDIA (27) Systemic inflammatory response syndrome (SIRS) Code(s): R65.10 - SIRS OF NON-INFECTIOUS ORIGIN W/O ACUTE ORGAN DYSFUNCTION (28) Tinea capitis Code(s): B35.0 - TINEA BARBAE AND TINEA CAPITIS (29) Anemia in ESRD (end-stage renal disease) Code(s): N18.6 - END STAGE RENAL DISEASE D63.1 - ANEMIA IN CHRONIC KIDNEY DISEASE (30) Ascites Code(s): R18.8 - OTHER ASCITES (31) Bacteremia Code(s): R78.81 - BACTEREMIA (32) CHF (congestive heart failure), NYHA class II Code(s): I50.9 - HEART FAILURE, UNSPECIFIED Qualifiers: Congestive heart failure type: unspecified congestive heart failure type Qualified Code(s): I50.9 - Heart failure, unspecified; I50.9 - Heart failure , unspecified; I50.9 - Heart failure, unspecified; I50.9 - Heart failure, unspecified (33) Chronic left shoulder pain Code(s): M25.512 - PAIN IN LEFT SHOULDER G89.29 - OTHER CHRONIC PAIN (34) Chronic systolic congestive heart failure Code(s): I50.22 - CHRONIC SYSTOLIC (CONGESTIVE) HEART FAILURE (35) Coronary arteriosclerosis in [place] artery Code(s): I25.10 - ATHSCL HEART DISEASE OF [place] CORONARY ARTERY W/O ANG PCTRS (36) HTN (hypertension) Code(s): I10 - ESSENTIAL (PRIMARY) HYPERTENSION (37) Hernia, umbilical Code(s): K42.9 - UMBILICAL HERNIA WITHOUT OBSTRUCTION OR GANGRENE Qualifiers: Obstruction and gangrene presence: without obstruction or gangrene Qualified Code(s): K42.9 - Umbilical hernia without obstruction or gangrene; K42.9 - Umbilical hernia without obstruction or gangrene (38) History of anuria Code(s): Z87.448 - PERSONAL HISTORY OF OTHER DISEASES OF URINARY SYSTEM (39) Hypoxia Code(s): R09.02 - HYPOXEMIA (40) Low hemoglobin and low hematocrit Code(s): D64.9 - ANEMIA, UNSPECIFIED (41) Mitral regurgitation Code(s): I34.0 - NONRHEUMATIC MITRAL (VALVE) INSUFFICIENCY Qualifiers: Cardiac valve disease etiology: nonrheumatic Qualified Code(s): I34.0 - Nonrheumatic mitral (valve) insufficiency; I34.0 - Nonrheumatic mitral ( valve) insufficiency (42) Pleural effusion Code(s): J90 - PLEURAL EFFUSION, NOT ELSEWHERE CLASSIFIED (43) Pulmonary hypertension Code(s): I27.2 - OTHER SECONDARY PULMONARY HYPERTENSION * DO NOT USE * (44) Renal failure Code(s): N19 - UNSPECIFIED KIDNEY FAILURE (45) Ribs, multiple fractures Code(s): S22.49XA - MULTIPLE FRACTURES OF RIBS, UNSP SIDE, INIT FOR CLOS FX (46) Right shoulder pain Code(s): M25.511 - PAIN IN RIGHT SHOULDER (47) Stress at home Code(s): F43.9 - REACTION TO SEVERE STRESS, UNSPECIFIED (48) Uncontrolled hypertension Code(s): I10 - ESSENTIAL (PRIMARY) HYPERTENSION Assessment/Plan hypotension, hypoxia CHF ESRD on HD, chronic HTN, MV and TV repair several years ago at [facility] for Endocarditis, residual ASD from transeptal puncture from that operation, history of cocaine abuse, ascites from right sided CHF and PHTN, ocular "TIA" several months ago Plan hd for volume removal cont telemetry cardiac jung stable
--- NOTE | 2017-07-04 08:46 | EKG ---
Test Reason : Blood Pressure : / mmHG Vent. Rate : 067 BPM Atrial Rate : 067 BPM P-R Int : 140 ms QRS Dur : 090 ms QT Int : 458 ms P-R-T Axes : 038 170 000 degrees QTc Int : 483 ms NORMAL SINUS RHYTHM WITH SINUS ARRHYTHMIA RIGHT VENTRICULAR HYPERTROPHY NONSPECIFIC T WAVE ABNORMALITY PROLONGED QT ABNORMAL ECG WHEN COMPARED WITH ECG OF 27-JUN-2017 17:17, PREMATURE VENTRICULAR COMPLEXES ARE NO LONGER PRESENT T WAVE INVERSION MORE EVIDENT IN LATERAL LEADS Confirmed by PARAS LEIGH, MENDY ([id number]) on 07/04/2017 8:46:16 AM Referred By: Confirmed By:MENDY CRAIN MD
[2017-07-04] MEDS: TAMSULOSIN HCL 0.4 MG CAP.ER.24H (FP) PO SCH ×2 (09:42→15:12)
[2017-07-04] MEDS: FOLIC ACID 1 MG TABLET (FP) PO SCH ×2 (09:46→15:13)
[2017-07-04] MEDS: HEPARIN NA (PORCINE) 5,000 UNITS/ML 1ML VIAL SQ SCH ×2 (09:49→21:26)
[2017-07-04] MEDS: SEVELAMER CARBONATE 800 MG TAB (FP) PO SCH ×2 (09:49→21:23)
[2017-07-04] MEDS ORDERED: EPOETIN ALFA 10,000 UNIT/1 ML VIAL IVPUSH ONE (11:30)
--- NOTE | 2017-07-04 12:36 | CONSULT ---
Consult - History of Present Illness History of Present Illness: 57 year old man ESRD on HD known to me. He had a left arm fistula which had become aneurysm and was revised in February. Left arm swelling persisted due to problems with venous outflow. He did not return for follow-up but reportedly was treated at [facility] with fistula ligation and Permacath placement. He is now admitted for weakness. - Past Medical History Cardio/Vascular: Yes: CHF (Chronic diastolic HF, Severe Pulm HTN), HTN, Hyperlipdemia, Mitral Insufficiency (s/p MVR (bio)), Pulmonary Hypertension, Other (Severe Tricuspid regurgitation, Endocarditis s/p TVR/MVR, recurrent bacteremia) Pulmonary: Yes: Other (PHTN) Gastrointestinal: Yes: Ascites, Constipation Hepatobiliary: Yes: Hepatitis C Renal/: Yes: Renal Failure, Hemodialysis Psych: Yes: Addictions Musculoskeletal: Yes: Bursitis (left shoulder pain) - Past Surgical History Past Surgical History: Yes: AV Fistula/Graft, Hernia Repair (11/19) - Alcohol/Substance Use Hx Alcohol Use: No History of Substance Use: reports: Cocaine (last use 2 weeks ago), Marijuana - Smoking History Smoking history: Current every day smoker Have you smoked in the past 12 months: Yes Aproximately how many cigarettes per day: 3 - Social History ADL: Independent 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 History of Recent Travel: No Home Medications - Allergies Allergies/Adverse Reactions: Allergies Allergy/AdvReac Type Severity Reaction Status Date / Time Iodinated Contrast- Oral and Allergy Verified 07/03/17 15:20 IV Dye CONTRAST Allergy Hives Uncoded 07/03/17 15:20 - Home Medications Home Medications: Ambulatory Orders Calcium Acetate 667 mg PO TID 09/11/16 Folic Acid 1 mg PO DAILY 09/11/16 Sevelamer Carbonate [Renvela -] 1,600 mg PO BID 09/11/16 Albuterol Sulfate 0.042% [Ventolin 0.042% (Half-Strength) -] 1 amp NEB TID PRN 04/22/17 Cyclobenzaprine HCl [Flexeril -] 10 mg PO HS 04/22/17 Fluticasone Prop 0.05% Nasal [Flonase -] 1 spray NS PRN 04/22/17 Oxycodone HCl 10 mg PO QID PRN 07/03/17 Tamsulosin HCl 0.4 mg PO DAILY 07/03/17 Family Disease History - Family Disease History Family Disease History: Other: Father ( of kidney failure), Mother (muscle problems), Sister (healthy and living, HTN) Physical Exam Vital Signs: Vital Signs Temperature 98.2 F 07/04/17 11:40 Pulse Rate 69 07/04/17 11:45 Respiratory Rate 18 07/04/17 11:45 Blood Pressure 107/69 07/04/17 11:45 O2 Sat by Pulse Oximetry (%) 97 07/04/17 09:00 Constitutional: Yes: No Distress Extremities: Yes: Other (Left forearm with long incision and multiple sutures and staple in place. Hand is warm.) Labs: CBC, BMP 07/04/17 06:00 07/04/17 06:00 Problem List - Problems (1) ESRD on hemodialysis Assessment/Plan: Current access is Permacath on right side. Patient states he has venous mapping at [facility] 2 weeks ago. He will need new access - if there has been no change he should have a basilic vein in the upper arm that can be used. Code(s): N18.6 - END STAGE RENAL DISEASE Z99.2 - DEPENDENCE ON RENAL DIALYSIS
--- NOTE | 2017-07-04 14:28 | PN ---
Progress Note (short form) - Note Progress Note: Renal follow up for ESRD on HD (pt readmitted) Pt seen and examined at the bedside This is a 57 year old Gentleman with PMhx of ESRD on HD (TTS), CHF, Hx of infective endocarditis s/p MVR/TVR s/p recent admission at [facility] and at [facility] presents from PMD office with SOB, Hypoxia and low BP. Pt is currently on dialysis. Tolerated it well with goal UF of 3.5L over 3 hours. Pt refused to have 4 hour dialysis treatment. Catheter with good flow. Reports Abd fullness and LE edema. Vital Signs Temperature 98.2 F 07/04/17 11:40 Pulse Rate 70 07/04/17 13:45 Respiratory Rate 18 07/04/17 13:45 Blood Pressure 102/67 07/04/17 13:45 O2 Sat by Pulse Oximetry (%) 97 07/04/17 09:00 Intake & Output 07/01/17 07/02/17 07/03/17 07/04/17 23:59 23:59 23:59 23:59 Intake Total 240 Balance 240 Weight 174 lb NAD, awake and alert on NC O2 RRR, No M/R + JVD Dec BS at b/l lung garcia Soft NT/ND, no significant ascities noted 3+ LE edema Right IJ catheter in place CBC, BMP 07/04/17 06:00 07/04/17 06:00 Laboratory Tests 05/14/17 07/04/17 10:20 06:00 Calcium 7.6 L 7.4 L Phosphorus 5.9 H TSH 11.40 H D Current Medications Albuterol Sulfate (Ventolin 0.042trength) -) 1 amp NEB Q8H PRN PRN Reason: SHORT OF BREATH/WHEEZING Calcium Acetate (Phoslo -) 667 mg PO TID [facility] Last Admin: 07/04/17 05:49 Dose: 667 mg Cyclobenzaprine HCl (Flexeril -) 10 mg PO HS [facility] Folic Acid (Folic Acid -) 1 mg PO DAILY [facility] Last Admin: 07/04/17 09:46 Dose: Not Given Heparin Sodium (Porcine) (Heparin -) 5,000 unit SQ BID [facility] Last Admin: 07/04/17 09:49 Dose: Not Given Sevelamer Carbonate (Renvela -) 1,600 mg PO BID [facility] Last Admin: 07/04/17 09:49 Dose: Not Given Tamsulosin HCl (Flomax -) 0.4 mg PO DAILY@0830 [facility] Last Admin: 07/04/17 09:42 Dose: Not Given A/P 57 year old Gentleman with PMhx of ESRD on HD (TTS), CHF, Hx of infective endocarditis s/p MVR/TVR s/p recent admission at [facility] and at [facility] presents from PMD office with SOB, Hypoxia and low BP and admitted with CHF/Volume overload. #ESRD with CHF/Volume overload in setting of valvular heart disease Pt is currently tolerating dialysis well today with 3.5Kg UF will continue aggressive UF/HD as tolerated as a inpatient fluid restriction of 1.2 L Cardiology follow up check Abd US to acess for presence of ascities Low salt diet #CKD reltaed Anemia will give dayron with HD no acute indication for transfusion check stool studies and iron studies Thank you Will follow Abdirashid Guthrie DO
--- NOTE | 2017-07-04 18:25 | HP ---
Admitting History and Physical - Admission History of Present Illness: Pt is a 57 y/o male with PMH significant for HTN, HLD, CHF, endocarditis(s/p valve replacements x 2), ESRD(on dialysis TIW), anemia, asthma, CAD, Hep C, bursititis and substance abuse. Pt presented to the ER after being found to be hypoxic(O2 sat 77%) and hypotensive in the office. Pt was recently dc'ed from [facility]. Patient reports having the fistula in his left arm removed at [facility] by Dr. Larson due infection in the LUW. Patient reports Dr. Larson placed a catheter in his right chest. Pt states that he is feeling very weak and SOB although he denies any palpitations and no chest pain. Pt also c/o ascites and states he has noticed edema in his abdomen and thighs. - Past Medical History Cardiovascular: Yes: CHF (Chronic diastolic HF, Severe Pulm HTN), HTN, Hyperlipdemia, Mitral Insufficiency (s/p MVR (bio)), Pulmonary Hypertension, Other (Severe Tricuspid regurgitation, Endocarditis s/p TVR/MVR, recurrent bacteremia) Pulmonary: Yes: Other (PHTN) Gastrointestinal: Yes: Ascites, Constipation Hepatobiliary: Yes: Hepatitis C Renal/: Yes: Renal Failure, Hemodialysis Heme/Onc: Yes: Anemia Psych: Yes: Addictions Musculoskeletal: Yes: Bursitis (left shoulder pain) - Past Surgical History Past Surgical History: Yes: AV Fistula/Graft, Hernia Repair (11/19) Additional Past Surgical History: MV/TV replacements - Smoking History Smoking history: Current every day smoker Have you smoked in the past 12 months: Yes Aproximately how many cigarettes per day: 3 - Alcohol/Substance Use Hx Alcohol Use: No History of Substance Use: reports: Cocaine (last use 2 weeks ago), Marijuana - Social History ADL: Independent 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 History of Recent Travel: No Home Medications - Allergies Allergies/Adverse Reactions: Allergies Allergy/AdvReac Type Severity Reaction Status Date / Time Iodinated Contrast- Oral and Allergy Verified 07/03/17 15:20 IV Dye CONTRAST Allergy Hives Uncoded 07/03/17 15:20 - Home Medications Home Medications: Ambulatory Orders Calcium Acetate 667 mg PO TID 09/11/16 Folic Acid 1 mg PO DAILY 09/11/16 Sevelamer Carbonate [Renvela -] 1,600 mg PO BID 09/11/16 Albuterol Sulfate 0.042% [Ventolin 0.042% (Half-Strength) -] 1 amp NEB TID PRN 04/22/17 Cyclobenzaprine HCl [Flexeril -] 10 mg PO HS 04/22/17 Fluticasone Prop 0.05% Nasal [Flonase -] 1 spray NS PRN 04/22/17 Oxycodone HCl 10 mg PO QID PRN 07/03/17 Tamsulosin HCl 0.4 mg PO DAILY 07/03/17 Family Disease History - Family Disease History Family History: Unremarkable Family Disease History: Other: Father ( of kidney failure), Mother (muscle problems), Sister (healthy and living, HTN) Review of Systems - Review of Systems Constitutional: reports: Lethargy, Loss of Appetite, Malaise, Weakness Eyes: reports: No Symptoms HENT: reports: No Symptoms Neck: reports: No Symptoms Cardiovascular: reports: Shortness of Breath Respiratory: reports: SOB Gastrointestinal: reports: Bloating Physical Examination Vital Signs: Vital Signs Temperature 98.2 F 07/04/17 11:40 Pulse Rate 80 07/04/17 15:00 Respiratory Rate 18 07/04/17 15:00 Blood Pressure 108/70 07/04/17 15:00 O2 Sat by Pulse Oximetry (%) 97 07/04/17 09:00 Constitutional: Yes: No Distress HENT: Yes: WNL Neck: Yes: WNL, Supple Cardiovascular: Yes: WNL, Regular Rate and Rhythm Respiratory: Yes: Diminished Gastrointestinal: Yes: WNL, Normal Bowel Sounds, Soft Extremities: Yes: Other ((+) surgical scar LUE) Edema: Yes Edema: LLE: 1+, RLE: 1+ Neurological: Yes: WNL, Alert, Oriented ...Motor Strength: WNL Labs: CBC, BMP 07/04/17 06:00 07/04/17 06:00 Problem List - Problems (1) Hypotension Assessment/Plan: Antihypertensives had been stopped few weeks ago by cardio Cardio consult Monitor BP Code(s): I95.9 - HYPOTENSION, UNSPECIFIED (2) Acute dyspnea Assessment/Plan: Improved w/ dialysis Multifactorial Cont duoneb Pt is on O2 at home Code(s): R06.00 - DYSPNEA, UNSPECIFIED (3) Ascites Assessment/Plan: Check US abdomen Code(s): R18.8 - OTHER ASCITES (4) ESRD on hemodialysis Assessment/Plan: Dialysis as per renal Monitor electrolytes Vascular consult Permacath in rt ant chest wall Cont phoslo/renvela Code(s): N18.6 - END STAGE RENAL DISEASE Z99.2 - DEPENDENCE ON RENAL DIALYSIS (5) Anemia in CKD (chronic kidney disease) Assessment/Plan: Monitor H/H Code(s): N18.9 - CHRONIC KIDNEY DISEASE, UNSPECIFIED D63.1 - ANEMIA IN CHRONIC KIDNEY DISEASE (6) CHF (congestive heart failure) Code(s): I50.9 - HEART FAILURE, UNSPECIFIED (7) Chronic left shoulder pain Code(s): M25.512 - PAIN IN LEFT SHOULDER G89.29 - OTHER CHRONIC PAIN (8) Chronic systolic congestive heart failure Code(s): I50.22 - CHRONIC SYSTOLIC (CONGESTIVE) HEART FAILURE (9) Coronary arteriosclerosis in [place] artery Code(s): I25.10 - ATHSCL HEART DISEASE OF [place] CORONARY ARTERY W/O ANG PCTRS
[2017-07-04] MEDS: ACETAMINOPHEN 325 MG TABLET (FP) PO PRN (21:22)
[2017-07-04] MEDS: CYCLOBENZAPRINE HCL 10 MG TABLET (FP) PO SCH (21:23)
[2017-07-04] MEDS ORDERED: PT OWN MED DRAWER 7, Y5N ONE (21:47)
[2017-07-04] MEDS: ALBUTEROL SO4 0.042% IH SOL 1.25 MG/3 ML VIAL.NEB NEB PRN (21:48)
[2017-07-05] MEDS: CALCIUM ACETATE 667 MG CAPSULE (FP) PO SCH ×3 (05:54→21:32)
[2017-07-05 07:55] LABS: BASOPHIL 1.4 % (0-2.0); EOSINOPHIL 15.1 % (0-4.5); MCH 31.4 pg (25.7-33.7); MCHC 32.5 g/dl (32.0-35.9); MEAN CELL VOLUME 96.7 fl (80-96); MEAN PLT VOLUME 9.5 fl (7.5-11.1); NEUTROPHILS 63.4 % (42.8-82.8); PLATELET COUNT 162 K/MM3 (134-434); RDW 18.8 % (11.9-15.9); WHITE BLOOD COUNT 4.1 K/mm3 (4.0-10.0)
[2017-07-05 08:29] LABS: CALCIUM 7.9 mg/dL (8.5-10.1)
[2017-07-05 08:38] LABS: ANION GAP 8 (8-16); CO2 29 mmol/L (21-32); CPK 179 IU/L (39-308); CREATININE 6.4 mg/dL (0.7-1.3); GLUCOSE,RANDOM 89 mg/dL (74-106); TROPONIN I 0.06 ng/ml (0.00-0.05)
--- NOTE | 2017-07-05 08:44 | PN ---
Progress Note, Physician History of Present Illness: The patient is a 57 year old male, with a significant past medical history of hypertension, hyperlipidemia, ESRD(on dialysis, T, Th, Sat), anemia, asthma, CAD (s/p valve replacements x2)who presents to the emergency department sent by Dr. Gee for evaluation of hypotension and low pulse ox. Patient states he was following up with Dr. Gee today s/p being discharged from the hospital, because his systolic bp has been in the 70s. At Dr. Rogel office patient reports he experienced shortness of breath, but denies any chest pain, diaphoresis, palpitations, or lower extremity edema. Patient is currently on O2. As per Dr. Gee, the patients O2 Sat was 77 in her office earlier today , so she sent him to follow up with Dr. San, but patient never made it. Patient reports his systolic bp was in the 130s as of one month ago. 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 San stopped his hypertension meds as of a couple of weeks ago, because his systolic was in the 70s. Patient reports he has a history of multiple blood transfusions. Patient reports recently having the fistula in his left arm removed at [facility] by Dr. Larson due infection in the LUW. Patient reports Dr. Larson placed a catheter in his right chest, and his last full dialysis treatment was yesterday (07/02), where he had 4.5 kilos removed. He denies any fever, chills, headache , or dizziness. He denies any abdominal pain, nausea, vomiting, diarrhea, or constipation. He denies any dysuria, hematuria, or changes in urination. Allergies: Iodinated Contrast(Oral and IV Dye) Past Surgical History: Valve replacements X2, lung sx (h/o MRSA pleural tissue) Social History: Non smoker. ETOH abuse. No recreational drug use. PCP: Dr. Gee Vascular Surgeon: Dr. Larson Front Counter Clerk: Dr. Ashley Tavarez [facility] ESRD on HD, chronic HTN, MV and TV repair several years ago at [facility] for Endocarditis, residual ASD from transeptal puncture from that operation, history of cocaine abuse, ascites from right sided CHF and PHTN, ocular "TIA" several months ago - Current Medication List Current Medications: Active Medications Acetaminophen (Tylenol -) 650 mg PO Q6H PRN PRN Reason: FEVER OR PAIN Last Admin: 07/04/17 21:22 Dose: 650 mg Albuterol Sulfate (Ventolin 0.042trength) -) 1 amp NEB Q8H PRN PRN Reason: SHORT OF BREATH/WHEEZING Last Admin: 07/04/17 21:48 Dose: 1 amp Calcium Acetate (Phoslo -) 667 mg PO TID [facility] Last Admin: 07/05/17 05:54 Dose: 667 mg Cyclobenzaprine HCl (Flexeril -) 10 mg PO HS [facility] Last Admin: 07/04/17 21:23 Dose: 10 mg Folic Acid (Folic Acid -) 1 mg PO DAILY [facility] Last Admin: 07/04/17 15:13 Dose: 1 mg Heparin Sodium (Porcine) (Heparin -) 5,000 unit SQ BID [facility] Last Admin: 07/04/17 21:26 Dose: Not Given Sevelamer Carbonate (Renvela -) 1,600 mg PO BID [facility] Last Admin: 07/04/17 21:23 Dose: 1,600 mg Tamsulosin HCl (Flomax -) 0.4 mg PO DAILY@0830 [facility] Last Admin: 07/04/17 15:12 Dose: 0.4 mg - Objective Vital Signs: Vital Signs Temperature 97.3 F L 07/05/17 06:00 Pulse Rate 64 07/05/17 06:00 Respiratory Rate 16 07/05/17 06:00 Blood Pressure 91/48 07/05/17 06:00 O2 Sat by Pulse Oximetry (%) 95 07/04/17 21:00 Eyes: Yes: WNL, Conjunctiva Clear, EOM Intact HENT: Yes: WNL, Atraumatic, Normocephalic Neck: Yes: WNL, Supple, Trachea Midline Cardiovascular: Yes: WNL, Regular Rate and Rhythm Respiratory: Yes: WNL, Regular, CTA Bilaterally Gastrointestinal: Yes: WNL, Normal Bowel Sounds Genitourinary: Yes: WNL Musculoskeletal: Yes: WNL Extremities: Yes: WNL Edema: No Integumentary: Yes: WNL Neurological: Yes: WNL, Alert, Oriented ...Motor Strength: WNL Psychiatric: Yes: WNL Labs: CBC, BMP 07/05/17 06:45 INR, PTT INR 1.22 (0.82-1.09) H 07/03/17 17:37 Problem List - Problems (1) ESRD (end stage renal disease) on dialysis Code(s): N18.6 - END STAGE RENAL DISEASE Z99.2 - DEPENDENCE ON RENAL DIALYSIS (2) Fluid overload Code(s): E87.70 - FLUID OVERLOAD, UNSPECIFIED Qualifiers: Hypervolemia type: unspecified Qualified Code(s): E87.70 - Fluid overload, unspecified; E87.70 - Fluid overload, unspecified (3) H/O mitral valve repair Code(s): Z98.890 - OTHER SPECIFIED POSTPROCEDURAL STATES (4) SOB (shortness of breath) Code(s): R06.02 - SHORTNESS OF BREATH (5) ESRD on hemodialysis Code(s): N18.6 - END STAGE RENAL DISEASE Z99.2 - DEPENDENCE ON RENAL DIALYSIS (6) Acute dyspnea Code(s): R06.00 - DYSPNEA, UNSPECIFIED (7) Acute electrocardiogram changes Code(s): R94.31 - ABNORMAL ELECTROCARDIOGRAM [ECG] [EKG] (8) Acute on chronic combined systolic and diastolic CHF, NYHA class 4 Code(s): I50.43 - ACUTE ON CHRONIC COMBINED SYSTOLIC AND DIASTOLIC HRT FAIL (9) Anemia in CKD (chronic kidney disease) Code(s): N18.9 - CHRONIC KIDNEY DISEASE, UNSPECIFIED D63.1 - ANEMIA IN CHRONIC KIDNEY DISEASE (10) CHF (congestive heart failure) Code(s): I50.9 - HEART FAILURE, UNSPECIFIED (11) DVT prophylaxis Code(s): [id number] - (12) Dizziness Code(s): R42 - DIZZINESS AND GIDDINESS (13) Dyspnea Code(s): R06.00 - DYSPNEA, UNSPECIFIED (14) Elevated troponin I level Code(s): R74.8 - ABNORMAL LEVELS OF OTHER SERUM ENZYMES (15) Empyema Code(s): J86.9 - PYOTHORAX WITHOUT FISTULA (16) Encounter for slow continuous ultrafiltration Code(s): Z99.2 - DEPENDENCE ON RENAL DIALYSIS (17) Endocarditis Code(s): I38 - ENDOCARDITIS, VALVE UNSPECIFIED (18) GI bleed Code(s): K92.2 - GASTROINTESTINAL HEMORRHAGE, UNSPECIFIED Qualifiers: GI bleed type/associated pathology: unspecified gastrointestinal hemorrhage type Qualified Code(s): K92.2 - Gastrointestinal hemorrhage, unspecified; K92.2 - Gastrointestinal hemorrhage, unspecified (19) Low back pain Code(s): M54.5 - LOW BACK PAIN Qualifiers: Chronicity: acute Back pain laterality: bilateral Sciatica presence : without sciatica Qualified Code(s): M54.5 - Low back pain; M54.5 - Low back pain (20) Lower abdominal pain Code(s): R10.30 - LOWER ABDOMINAL PAIN, UNSPECIFIED (21) NSVT (nonsustained ventricular tachycardia) Code(s): I47.2 - VENTRICULAR TACHYCARDIA (22) Pneumonia Code(s): J18.9 - PNEUMONIA, UNSPECIFIED ORGANISM Qualifiers: Pneumonia type: due to unspecified organism Laterality: right Lung location: lower lobe of lung Qualified Code(s): J18.1 - Lobar pneumonia, unspecified organism; J18.1 - Lobar pneumonia, unspecified organism; J18.1 - Lobar pneumonia, unspecified organism (23) Precordial chest pain Code(s): R07.2 - PRECORDIAL PAIN (24) Rectal bleeding Code(s): K62.5 - HEMORRHAGE OF ANUS AND RECTUM (25) Renal osteodystrophy Code(s): N25.0 - RENAL OSTEODYSTROPHY (26) SVT (supraventricular tachycardia) Code(s): I47.1 - SUPRAVENTRICULAR TACHYCARDIA (27) Systemic inflammatory response syndrome (SIRS) Code(s): R65.10 - SIRS OF NON-INFECTIOUS ORIGIN W/O ACUTE ORGAN DYSFUNCTION (28) Tinea capitis Code(s): B35.0 - TINEA BARBAE AND TINEA CAPITIS (29) Anemia in ESRD (end-stage renal disease) Code(s): N18.6 - END STAGE RENAL DISEASE D63.1 - ANEMIA IN CHRONIC KIDNEY DISEASE (30) Ascites Code(s): R18.8 - OTHER ASCITES (31) Bacteremia Code(s): R78.81 - BACTEREMIA (32) CHF (congestive heart failure), NYHA class II Code(s): I50.9 - HEART FAILURE, UNSPECIFIED Qualifiers: Congestive heart failure type: unspecified congestive heart failure type Qualified Code(s): I50.9 - Heart failure, unspecified; I50.9 - Heart failure , unspecified; I50.9 - Heart failure, unspecified; I50.9 - Heart failure, unspecified (33) Chronic left shoulder pain Code(s): M25.512 - PAIN IN LEFT SHOULDER G89.29 - OTHER CHRONIC PAIN (34) Chronic systolic congestive heart failure Code(s): I50.22 - CHRONIC SYSTOLIC (CONGESTIVE) HEART FAILURE (35) Coronary arteriosclerosis in [place] artery Code(s): I25.10 - ATHSCL HEART DISEASE OF [place] CORONARY ARTERY W/O ANG PCTRS (36) HTN (hypertension) Code(s): I10 - ESSENTIAL (PRIMARY) HYPERTENSION (37) Hernia, umbilical Code(s): K42.9 - UMBILICAL HERNIA WITHOUT OBSTRUCTION OR GANGRENE Qualifiers: Obstruction and gangrene presence: without obstruction or gangrene Qualified Code(s): K42.9 - Umbilical hernia without obstruction or gangrene; K42.9 - Umbilical hernia without obstruction or gangrene (38) History of anuria Code(s): Z87.448 - PERSONAL HISTORY OF OTHER DISEASES OF URINARY SYSTEM (39) Hypoxia Code(s): R09.02 - HYPOXEMIA (40) Low hemoglobin and low hematocrit Code(s): D64.9 - ANEMIA, UNSPECIFIED (41) Mitral regurgitation Code(s): I34.0 - NONRHEUMATIC MITRAL (VALVE) INSUFFICIENCY Qualifiers: Cardiac valve disease etiology: nonrheumatic Qualified Code(s): I34.0 - Nonrheumatic mitral (valve) insufficiency; I34.0 - Nonrheumatic mitral ( valve) insufficiency (42) Pleural effusion Code(s): J90 - PLEURAL EFFUSION, NOT ELSEWHERE CLASSIFIED (43) Pulmonary hypertension Code(s): I27.2 - OTHER SECONDARY PULMONARY HYPERTENSION * DO NOT USE * (44) Renal failure Code(s): N19 - UNSPECIFIED KIDNEY FAILURE (45) Ribs, multiple fractures Code(s): S22.49XA - MULTIPLE FRACTURES OF RIBS, UNSP SIDE, INIT FOR CLOS FX (46) Right shoulder pain Code(s): M25.511 - PAIN IN RIGHT SHOULDER (47) Stress at home Code(s): F43.9 - REACTION TO SEVERE STRESS, UNSPECIFIED (48) Uncontrolled hypertension Code(s): I10 - ESSENTIAL (PRIMARY) HYPERTENSION Assessment/Plan hypotension, hypoxia CHF ESRD on HD, chronic HTN, MV and TV repair several years ago at [facility] for Endocarditis, residual ASD from transeptal puncture from that operation, history of cocaine abuse, ascites from right sided CHF and PHTN, ocular "TIA" several months ago Plan hd for volume removal cont telemetry cardiac jung stable
[2017-07-05 09:14] LABS: FERRITIN 134.249 ng/ml (16.4-293.9)
[2017-07-05] MEDS: TAMSULOSIN HCL 0.4 MG CAP.ER.24H (FP) PO SCH (09:35)
[2017-07-05] MEDS: SEVELAMER CARBONATE 800 MG TAB (FP) PO SCH ×2 (09:36→21:33)
[2017-07-05] MEDS: FOLIC ACID 1 MG TABLET (FP) PO SCH (09:36)
[2017-07-05] MEDS: HEPARIN NA (PORCINE) 5,000 UNITS/ML 1ML VIAL SQ SCH ×2 (09:40→21:33)
[2017-07-05] MEDS ORDERED: PT OWN MED DRAWER 7, Y5N ONE (10:53)
[2017-07-05] MEDS: ALBUTEROL SO4 0.042% IH SOL 1.25 MG/3 ML VIAL.NEB NEB PRN ×2 (11:13→21:15)
--- NOTE | 2017-07-05 21:06 | PN ---
Progress Note, Physician - Current Medication List Current Medications: Active Medications Acetaminophen (Tylenol -) 650 mg PO Q6H PRN PRN Reason: FEVER OR PAIN Last Admin: 07/04/17 21:22 Dose: 650 mg Albuterol Sulfate (Ventolin 0.042trength) -) 1 amp NEB Q8H PRN PRN Reason: SHORT OF BREATH/WHEEZING Last Admin: 07/05/17 11:13 Dose: 1 amp Calcium Acetate (Phoslo -) 667 mg PO TID [facility] Last Admin: 07/05/17 15:26 Dose: 667 mg Cyclobenzaprine HCl (Flexeril -) 10 mg PO HS [facility] Last Admin: 07/04/17 21:23 Dose: 10 mg Folic Acid (Folic Acid -) 1 mg PO DAILY [facility] Last Admin: 07/05/17 09:36 Dose: 1 mg Heparin Sodium (Porcine) (Heparin -) 5,000 unit SQ BID [facility] Last Admin: 07/05/17 09:40 Dose: Not Given Sevelamer Carbonate (Renvela -) 1,600 mg PO BID [facility] Last Admin: 07/05/17 09:36 Dose: 1,600 mg Tamsulosin HCl (Flomax -) 0.4 mg PO DAILY@0830 [facility] Last Admin: 07/05/17 09:35 Dose: 0.4 mg - Objective Vital Signs: Vital Signs Temperature 98.2 F 07/05/17 10:00 Pulse Rate 74 07/05/17 10:00 Respiratory Rate 16 07/05/17 10:00 Blood Pressure 114/59 07/05/17 10:00 O2 Sat by Pulse Oximetry (%) 95 07/05/17 09:00 Constitutional: Yes: No Distress Eyes: Yes: WNL HENT: Yes: WNL Neck: Yes: WNL Cardiovascular: Yes: WNL, Regular Rate and Rhythm, Murmur Respiratory: Yes: Diminished Gastrointestinal: Yes: WNL, Normal Bowel Sounds, Soft Edema: LLE: 1+, RLE: 1+ Labs: CBC, BMP 07/05/17 06:45 07/05/17 06:45 INR, PTT INR 1.22 (0.82-1.09) H 07/03/17 17:37 Problem List - Problems (1) ESRD (end stage renal disease) on dialysis Assessment/Plan: Dialysis as per renal Permacath rt ant chest wall Vascular consult Code(s): N18.6 - END STAGE RENAL DISEASE Z99.2 - DEPENDENCE ON RENAL DIALYSIS (2) Hypotension Assessment/Plan: Antihypertensives had been stopped few weeks ago by cardio BP improving Code(s): I95.9 - HYPOTENSION, UNSPECIFIED (3) SOB (shortness of breath) Assessment/Plan: Cont duoneb CXR showed pulmonary vasc congestion/effusion/rt heart failure Code(s): R06.02 - SHORTNESS OF BREATH (4) Anemia in CKD (chronic kidney disease) Assessment/Plan: Monitor H/H Code(s): N18.9 - CHRONIC KIDNEY DISEASE, UNSPECIFIED D63.1 - ANEMIA IN CHRONIC KIDNEY DISEASE (5) CHF (congestive heart failure) Code(s): I50.9 - HEART FAILURE, UNSPECIFIED (6) Ascites Assessment/Plan: US abd: ascites RUQ/lt pleural effusion fatty liver vs hepatocellular dz GI consult Code(s): R18.8 - OTHER ASCITES (7) Chronic left shoulder pain Assessment/Plan: Tylenol prn Code(s): M25.512 - PAIN IN LEFT SHOULDER G89.29 - OTHER CHRONIC PAIN (8) Chronic systolic congestive heart failure Code(s): I50.22 - CHRONIC SYSTOLIC (CONGESTIVE) HEART FAILURE
[2017-07-05] MEDS ORDERED: ALBUTEROL SO4 0.083% IH SOL 2.5 MG/3 ML VIAL.NEB. NEB ONE (21:12)
[2017-07-05] MEDS: CYCLOBENZAPRINE HCL 10 MG TABLET (FP) PO SCH (21:32)
[2017-07-06] MEDS ORDERED: ALBUTEROL SO4 0.5 % INH SOLN 2.5 MG/0.5 ML VIAL.NEB. NEB ONE (05:35)
[2017-07-06] MEDS: ALBUTEROL SO4 0.042% IH SOL 1.25 MG/3 ML VIAL.NEB NEB PRN ×2 (05:39→10:10)
[2017-07-06] MEDS: CALCIUM ACETATE 667 MG CAPSULE (FP) PO SCH ×2 (06:13→14:24)
[2017-07-06 06:38] LABS: SERUM IRON 37 ug/dL (38-169); TOTAL IRON BINDING CAPACITY 234 ug/dL (250-450); UIBC 197 ug/dL (111-343)
[2017-07-06 07:05] LABS: BASOPHIL 2.1 % (0-2.0); EOSINOPHIL 13.5 % (0-4.5); MCH 31.5 pg (25.7-33.7); MCHC 32.4 g/dl (32.0-35.9); MEAN CELL VOLUME 97.4 fl (80-96); MEAN PLT VOLUME 9.6 fl (7.5-11.1); NEUTROPHILS 65.6 % (42.8-82.8); PLATELET COUNT 170 K/MM3 (134-434); RDW 18.8 % (11.9-15.9); WHITE BLOOD COUNT 4.1 K/mm3 (4.0-10.0)
[2017-07-06 07:23] LABS: ANION GAP 8 (8-16); CALCIUM 7.8 mg/dL (8.5-10.1); CO2 30 mmol/L (21-32); GLUCOSE,RANDOM 90 mg/dL (74-106); MAGNESIUM 2.2 mg/dL (1.8-2.4); PHOSPHOROUS 3.2 mg/dL (2.5-4.9)
[2017-07-06 07:30] LABS: CPK 172 IU/L (39-308); TROPONIN I 0.06 ng/ml (0.00-0.05)
[2017-07-06 08:27] LABS: CREATININE 7.6 mg/dL (0.7-1.3)
[2017-07-06] MEDS ORDERED: PT OWN MED DRAWER 7, Y5N ONE (08:59)
[2017-07-06] MEDS: TAMSULOSIN HCL 0.4 MG CAP.ER.24H (FP) PO SCH (09:28)
[2017-07-06] MEDS: HEPARIN NA (PORCINE) 5,000 UNITS/ML 1ML VIAL SQ SCH ×2 (09:28→21:02)
[2017-07-06] MEDS: SEVELAMER CARBONATE 800 MG TAB (FP) PO SCH (09:28)
[2017-07-06] MEDS: FOLIC ACID 1 MG TABLET (FP) PO SCH (09:35)
--- NOTE | 2017-07-06 10:50 | PN ---
Progress Note, Physician History of Present Illness: [facility]. states he is still feeling sob, even with talking. - Current Medication List Current Medications: Active Medications Acetaminophen (Tylenol -) 650 mg PO Q6H PRN PRN Reason: FEVER OR PAIN Last Admin: 07/04/17 21:22 Dose: 650 mg Albuterol Sulfate (Ventolin 0.042trength) -) 1 amp NEB Q8H PRN PRN Reason: SHORT OF BREATH/WHEEZING Last Admin: 07/06/17 05:39 Dose: 1 amp Calcium Acetate (Phoslo -) 667 mg PO TID [facility] Last Admin: 07/06/17 06:13 Dose: 667 mg Cyclobenzaprine HCl (Flexeril -) 10 mg PO HS [facility] Last Admin: 07/05/17 21:32 Dose: 10 mg Folic Acid (Folic Acid -) 1 mg PO DAILY [facility] Last Admin: 07/06/17 09:35 Dose: 1 mg Heparin Sodium (Porcine) (Heparin -) 5,000 unit SQ BID [facility] Last Admin: 07/06/17 09:28 Dose: Not Given Sevelamer Carbonate (Renvela -) 1,600 mg PO BID [facility] Last Admin: 07/06/17 09:28 Dose: 1,600 mg Tamsulosin HCl (Flomax -) 0.4 mg PO DAILY@0830 [facility] Last Admin: 07/06/17 09:28 Dose: 0.4 mg - Objective Vital Signs: Vital Signs Temperature 97.8 F 07/06/17 09:36 Pulse Rate 79 07/06/17 09:36 Respiratory Rate 20 07/06/17 09:36 Blood Pressure 100/61 07/06/17 09:36 O2 Sat by Pulse Oximetry (%) 97 07/05/17 21:00 Constitutional: Yes: No Distress, Calm Eyes: Yes: Conjunctiva Clear, EOM Intact, PERRL HENT: Yes: Atraumatic, Normocephalic Neck: Yes: Supple, Trachea Midline Cardiovascular: Yes: Regular Rate and Rhythm, Murmur, S1, S2. No: Bradycardia, Tachycardia, Pulse Irregular, Bruit, JVD, Gallop, Rub, S3, S4, Varicosities Respiratory: Yes: Regular, Diminished, On Nasal O2, Rales, SOB. No: Rhonchi, Wheezes Gastrointestinal: Yes: Normal Bowel Sounds, Soft. No: Distention, Tenderness Musculoskeletal: Yes: Muscle Weakness Extremities: Yes: Other (L arm incision and sutures) Edema: No Peripheral Pulses WNL: Yes Peripheral Pulses: Left Doralis Pedis: 2+, Right Dorsalis Pedis: 2+ Neurological: Yes: Alert, Oriented Psychiatric: Yes: Alert, Oriented Labs: CBC, BMP 07/06/17 05:38 07/06/17 05:38 INR, PTT INR 1.22 (0.82-1.09) H 07/03/17 17:37 - ....Imaging Chest X-ray: Report Reviewed, Image Reviewed EKG: Report Reviewed, Image Reviewed Other: Report Reviewed, Image Reviewed (tele-nsr, pvcs, mult short runs nsvt- 3beats, 4 beats) Assessment/Plan 57 year old man with a complicated history including end-stage renal disease on dialysis, h/o endocarditis with mitral and tricuspid valve repair with recurrent moderate to severe regurgitation and pulmonary hypertension, atrial septal defect secondary to prior mitral valve surgery, TIA involving his right eye, recent admission [facility], now admitted with sob, fatigue, hypotension. SOB-volume overload -cont supp O2 -Cont with volume removal with HD as long as BP tolerates -H/H stable, does not appear to need PRBC transfusion at this time -check remainder of TFTs, TSH is elevated -outpatient plan has been for outpatient evaluation for possible ASD closure however pt has not yet followed up for this discussion, unlikely to be done on an urgent basis while hospitalized, would plan to attempt as much volume removal as possible as above and will pursue ASD closure further as outpatient -f/up echo that was ordered for today -hold all anti-HTN meds Afib-paroxsymal -has been NSR here -not on AC due to h/o bleeding
--- NOTE | 2017-07-06 13:21 | PN ---
Progress Note (short form) - Note Progress Note: PULMONARY CONSULTATION DICTATED 07/06/17 IMP ACUTE HYPOXEMIC RESPIRATORY FAILURE CHF PULMONARY HTN S/P MVR,TVR COPD ESRD ANEMIA HYPOTENSION PLAN HD PER RENAL O2 INHALED BRONCHODILATORS F/U CHEST X-RAY MONITOR JOSEFINA,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 Problem List - Problems (1) ESRD (end stage renal disease) on dialysis Code(s): N18.6 - END STAGE RENAL DISEASE Z99.2 - DEPENDENCE ON RENAL DIALYSIS (2) Fluid overload Code(s): E87.70 - FLUID OVERLOAD, UNSPECIFIED Qualifiers: Hypervolemia type: unspecified Qualified Code(s): E87.70 - Fluid overload, unspecified; E87.70 - Fluid overload, unspecified (3) H/O mitral valve repair Code(s): Z98.890 - OTHER SPECIFIED POSTPROCEDURAL STATES (4) Hypotension Code(s): I95.9 - HYPOTENSION, UNSPECIFIED (5) SOB (shortness of breath) Code(s): R06.02 - SHORTNESS OF BREATH (6) ESRD on hemodialysis Code(s): N18.6 - END STAGE RENAL DISEASE Z99.2 - DEPENDENCE ON RENAL DIALYSIS (7) Acute dyspnea Code(s): R06.00 - DYSPNEA, UNSPECIFIED (8) Acute on chronic combined systolic and diastolic CHF, NYHA class 4 Code(s): I50.43 - ACUTE ON CHRONIC COMBINED SYSTOLIC AND DIASTOLIC HRT FAIL (9) Anemia in ESRD (end-stage renal disease) Code(s): N18.6 - END STAGE RENAL DISEASE D63.1 - ANEMIA IN CHRONIC KIDNEY DISEASE (10) Hypoxia Code(s): R09.02 - HYPOXEMIA (11) Pulmonary hypertension Code(s): I27.2 - OTHER SECONDARY PULMONARY HYPERTENSION * DO NOT USE * (12) COPD (chronic obstructive pulmonary disease) Code(s): J44.9 - CHRONIC OBSTRUCTIVE PULMONARY DISEASE, UNSPECIFIED (13) Acute on chronic respiratory failure with hypoxemia Code(s): J96.21 - ACUTE AND CHRONIC RESPIRATORY FAILURE WITH HYPOXIA
--- NOTE | 2017-07-06 14:08 | CONS ---
DATE OF CONSULTATION: 07/06/2017 REFERRING PHYSICIAN: Shania Gee MD HISTORY: The patient is a 57-year-old black male known to me from previous hospitalizations with past medical history of hypertension, end-stage renal disease on hemodialysis Thursday, , Thursday, hyperlipidemia, anemia, asthma, COPD on O2, ASHD status post valve replacement x2, mitral as well as tricuspid, history of BPH admitted to [facility] secondary to increasing shortness of breath, lower extremity shortness of breath, weakness, and hypotension. The patient went to Dr. Gee's for evaluation on the day of admission status post being discharged from [facility]. He apparently is noted to be hypotensive with BPs in the 70s. He was also noted to be hypoxic with an O2 saturation of 77. He was subsequently advised to go to the emergency room. The patient in the emergency room was given supplemental O2, transferred to a medical floor, and seen for furthermore. He underwent hemodialysis with some improvement. The patient denies any chest pain, although has chest heaviness. Denies any fevers, chills. Denies any nausea, vomiting, or diaphoresis. He states that when he ambulates he gets very short of breath. He also sleeps on 2 pillows. He denies any hemoptysis. He denies a history of pneumonia. 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 REVIEW OF SYSTEMS: Positive orthopnea. Positive dyspnea. Positive chest tightness. No cough. No hemoptysis. No fevers. No chills. No abdominal pain. Positive lower extremity edema. CURRENT MEDICATIONS: Include Flomax, Tylenol, hepatitis subsequent, albuterol, Flexeril, PhosLo, Renvela, and folic acid. SOCIAL HISTORY: History of tobacco use. Quit 3 months ago. No occupational exposures. PHYSICAL EXAMINATION: General: The patient is a well-developed, well-nourished male awake and alert currently undergoing hemodialysis in no acute respiratory distress. Vital Signs: He is currently afebrile. Blood pressure , respiratory rate 18, O2 saturation 97% on 3 L. HEENT: Normocephalic and atraumatic. Neck: Supple. Heart: Irregular with S1, S2. Chest: Bibasilar crackles. Abdomen: Soft. Bowel sounds positive. Extremities: Bilateral lower extremity edema. LABORATORIES: BUN 24, creatinine 7.6. BNP 30,564, WBC 4.1, hemoglobin 9.2, hematocrit 28.4, platelet count 170,000. There are 65 polys, 8 lymphocytes, 10 monocytes, 13 eosinophils. IMAGING: Chest x-ray reveals pulmonary vascular congestion, small right pleural effusion, moderate sized left pleural effusion. IMPRESSION: 1. Hypoxemic respiratory failure secondary to likely decompensated congestive heart failure and fluid overload. 2. End-stage renal disease on hemodialysis. 3. Severe pulmonary hypertension. 4. Status post mitral and tricuspid valve replacement. 5. Atrial septal defect. 6. Hypotension. 7. Chronic obstructive pulmonary disease. 8. Anemia. PLAN: Continue hemodialysis. Supplemental O2. Monitor hemoglobin and hematocrit. Transfuse as needed. Inhaled bronchodilators. Obtain follow up chest x-ray. KEN HELLER M.D. [id number]
--- NOTE | 2017-07-06 15:02 | PN ---
Progress Note, Physician Chief Complaint: The patient seen in his bed. Had Hemodialysis earlier, with UF to remove extra fluid. Shortness of breath better. History of Present Illness: This is a 57 year old Gentleman with PMhx of ESRD on HD , CHF, Hx of Infective endocarditis s/p MVR/TVR s/p recent admission at [facility] and at [facility] presents from PMD office with SOB, Hypoxia and low BP. Pt had dialysis earlier today. Tolerated it well.P Reports Abd fullness and LE edema. - Current Medication List Current Medications: Active Medications Acetaminophen (Tylenol -) 650 mg PO Q6H PRN PRN Reason: FEVER OR PAIN Last Admin: 07/04/17 21:22 Dose: 650 mg Albuterol/Ipratropium (Duoneb -) 1 amp NEB Q4H PRN PRN Reason: SHORTNESS OF BREATH Calcium Acetate (Phoslo -) 667 mg PO TID [facility] Last Admin: 07/06/17 14:24 Dose: 667 mg Cyclobenzaprine HCl (Flexeril -) 10 mg PO HS [facility] Last Admin: 07/05/17 21:32 Dose: 10 mg Epoetin Cornelio (Procrit -) 10,000 unit SQ ONCE ONE Stop: 07/07/17 15:01 Folic Acid (Folic Acid -) 1 mg PO DAILY [facility] Last Admin: 07/06/17 09:35 Dose: 1 mg Heparin Sodium (Porcine) (Heparin -) 5,000 unit SQ BID [facility] Last Admin: 07/06/17 09:28 Dose: Not Given Sevelamer Carbonate (Renvela -) 1,600 mg PO BID [facility] Last Admin: 07/06/17 09:28 Dose: 1,600 mg Tamsulosin HCl (Flomax -) 0.4 mg PO DAILY@0830 [facility] Last Admin: 07/06/17 09:28 Dose: 0.4 mg - Objective Vital Signs: Vital Signs Temperature 98.1 F 07/06/17 14:27 Pulse Rate 73 07/06/17 14:27 Respiratory Rate 20 07/06/17 14:27 Blood Pressure 110/64 07/06/17 14:27 O2 Sat by Pulse Oximetry (%) 96 07/06/17 09:35 Constitutional: Yes: Mild Distress, Pallor Eyes: Yes: Conjunctiva Clear HENT: Yes: Normocephalic Neck: Yes: Trachea Midline Cardiovascular: Yes: Regular Rate and Rhythm, S1, S2 Respiratory: Yes: Regular, Diminished, Rales Gastrointestinal: Yes: Normal Bowel Sounds Genitourinary: No: CVA Tenderness - Left, CVA Tenderness - Right Edema: Yes Edema: LLE: 1+, RLE: 1+ Labs: CBC, BMP 07/06/17 05:38 07/06/17 05:38 INR, PTT INR 1.22 (0.82-1.09) H 07/03/17 17:37 Problem List - Problems (1) ESRD (end stage renal disease) on dialysis Code(s): N18.6 - END STAGE RENAL DISEASE Z99.2 - DEPENDENCE ON RENAL DIALYSIS (2) Fluid overload Code(s): E87.70 - FLUID OVERLOAD, UNSPECIFIED Qualifiers: Hypervolemia type: unspecified Qualified Code(s): E87.70 - Fluid overload, unspecified; E87.70 - Fluid overload, unspecified (3) H/O mitral valve repair Code(s): Z98.890 - OTHER SPECIFIED POSTPROCEDURAL STATES (4) SOB (shortness of breath) Code(s): R06.02 - SHORTNESS OF BREATH (5) 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 Patient still with some degree of fluid overload. Will give another dialysis tomorrow ( His regular day).
--- NOTE | 2017-07-06 15:56 | PN ---
Progress Note (short form) - Note Progress Note: Sutures and tony removed from arm. Once cleared by cardiology he can have new access creation. Problem List - Problems (1) ESRD on hemodialysis Code(s): N18.6 - END STAGE RENAL DISEASE Z99.2 - DEPENDENCE ON RENAL DIALYSIS
--- NOTE | 2017-07-06 18:43 | PN ---
Progress Note (short form) - Note Progress Note: GI patient known to DR Law service please inform him of the patients admission. Thanks
--- NOTE | 2017-07-06 20:12 | PN ---
Progress Note, Physician History of Present Illness: No new complaints - Current Medication List Current Medications: Active Medications Acetaminophen (Tylenol -) 650 mg PO Q6H PRN PRN Reason: FEVER OR PAIN Last Admin: 07/04/17 21:22 Dose: 650 mg Albuterol/Ipratropium (Duoneb -) 1 amp NEB Q4H PRN PRN Reason: SHORTNESS OF BREATH Calcium Acetate (Phoslo -) 667 mg PO TIDCM [facility] Cyclobenzaprine HCl (Flexeril -) 10 mg PO HS [facility] Last Admin: 07/05/17 21:32 Dose: 10 mg Epoetin Cornelio (Procrit -) 10,000 unit SQ ONCE ONE Stop: 07/07/17 15:01 Folic Acid (Folic Acid -) 1 mg PO DAILY [facility] Last Admin: 07/06/17 09:35 Dose: 1 mg Heparin Sodium (Porcine) (Heparin -) 5,000 unit SQ BID [facility] Last Admin: 07/06/17 09:28 Dose: Not Given Sevelamer Carbonate (Renvela -) 1,600 mg PO BID@0800,1730 [facility] Tamsulosin HCl (Flomax -) 0.4 mg PO DAILY@0830 [facility] Last Admin: 07/06/17 09:28 Dose: 0.4 mg - Objective Vital Signs: Vital Signs Temperature 98.2 F 07/06/17 16:58 Pulse Rate 73 07/06/17 16:58 Respiratory Rate 18 07/06/17 16:58 Blood Pressure 105/61 07/06/17 16:58 O2 Sat by Pulse Oximetry (%) 96 07/06/17 09:35 Constitutional: Yes: No Distress Neck: Yes: WNL, Supple Cardiovascular: Yes: WNL, Regular Rate and Rhythm, Murmur Respiratory: Yes: Diminished Gastrointestinal: Yes: WNL, Normal Bowel Sounds, Soft Edema: LLE: 1+, RLE: 1+ Labs: CBC, BMP 07/06/17 05:38 07/06/17 05:38 INR, PTT INR 1.22 (0.82-1.09) H 07/03/17 17:37 Problem List - Problems (1) ESRD (end stage renal disease) on dialysis Assessment/Plan: Dialysis as per renal Permacath rt ant chest wall Vascular consult to place AV fisutla once cleared by cardio Code(s): N18.6 - END STAGE RENAL DISEASE Z99.2 - DEPENDENCE ON RENAL DIALYSIS (2) Hypotension Assessment/Plan: Antihypertensives had been stopped few weeks ago by cardio BP improving Code(s): I95.9 - HYPOTENSION, UNSPECIFIED (3) SOB (shortness of breath) Assessment/Plan: Cont duoneb CXR showed pulmonary vasc congestion/effusion/rt heart failure Code(s): R06.02 - SHORTNESS OF BREATH (4) Anemia in CKD (chronic kidney disease) Code(s): N18.9 - CHRONIC KIDNEY DISEASE, UNSPECIFIED D63.1 - ANEMIA IN CHRONIC KIDNEY DISEASE (5) CHF (congestive heart failure) Code(s): I50.9 - HEART FAILURE, UNSPECIFIED (6) Ascites Code(s): R18.8 - OTHER ASCITES (7) Chronic left shoulder pain Code(s): M25.512 - PAIN IN LEFT SHOULDER G89.29 - OTHER CHRONIC PAIN (8) Chronic systolic congestive heart failure Code(s): I50.22 - CHRONIC SYSTOLIC (CONGESTIVE) HEART FAILURE
[2017-07-06] MEDS: ALBUTEROL SO4 2.5/IPRATROPIUM 0.5 INH SOL 3 ML VIAL.NEB. NEB PRN (20:15)
[2017-07-06] MEDS: CYCLOBENZAPRINE HCL 10 MG TABLET (FP) PO SCH (21:02)
[2017-07-07] MEDS: ACETAMINOPHEN 325 MG TABLET (FP) PO PRN (00:23)
[2017-07-07] MEDS: ALBUTEROL SO4 2.5/IPRATROPIUM 0.5 INH SOL 3 ML VIAL.NEB. NEB PRN ×3 (06:01→21:35)
[2017-07-07] MEDS: LEVOTHYROXINE NA 25 MCG TABLET (FP) PO SCH (06:08)
[2017-07-07] MEDS: CALCIUM ACETATE 667 MG CAPSULE (FP) PO SCH ×3 (08:33→18:01)
[2017-07-07] MEDS: SEVELAMER CARBONATE 800 MG TAB (FP) PO SCH ×2 (08:33→18:01)
[2017-07-07] MEDS: TAMSULOSIN HCL 0.4 MG CAP.ER.24H (FP) PO SCH (08:33)
[2017-07-07] MEDS ORDERED: EPOETIN ALFA 10,000 UNIT/1 ML VIAL SQ ONE (09:30)
[2017-07-07] MEDS ORDERED: PT OWN MED DRAWER 7, Y5N ONE (09:56)
--- NOTE | 2017-07-07 09:57 | PN ---
Progress Note, Physician Chief Complaint: no distress TELE: NSR with short runs NSVT - Current Medication List Current Medications: Active Medications Acetaminophen (Tylenol -) 650 mg PO Q6H PRN PRN Reason: FEVER OR PAIN Last Admin: 07/07/17 00:23 Dose: 650 mg Albuterol/Ipratropium (Duoneb -) 1 amp NEB Q4H PRN PRN Reason: SHORTNESS OF BREATH Last Admin: 07/07/17 06:01 Dose: 1 amp Calcium Acetate (Phoslo -) 667 mg PO TIDCM [facility] Last Admin: 07/07/17 08:33 Dose: 667 mg Cyclobenzaprine HCl (Flexeril -) 10 mg PO HS [facility] Last Admin: 07/06/17 21:02 Dose: 10 mg Folic Acid (Folic Acid -) 1 mg PO DAILY [facility] Last Admin: 07/06/17 09:35 Dose: 1 mg Heparin Sodium (Porcine) (Heparin -) 5,000 unit SQ BID [facility] Last Admin: 07/06/17 21:02 Dose: Not Given Levothyroxine Sodium (Synthroid -) 25 mcg PO DAILY@0700 [facility] Last Admin: 07/07/17 06:08 Dose: 25 mcg Sevelamer Carbonate (Renvela -) 1,600 mg PO BID@0800,1730 [facility] Last Admin: 07/07/17 08:33 Dose: 1,600 mg Tamsulosin HCl (Flomax -) 0.4 mg PO DAILY@0830 [facility] Last Admin: 07/07/17 08:33 Dose: 0.4 mg - Objective Vital Signs: Vital Signs Temperature 98.8 F 07/07/17 06:00 Pulse Rate 73 07/07/17 06:00 Respiratory Rate 20 07/07/17 06:00 Blood Pressure 123/77 07/07/17 06:00 O2 Sat by Pulse Oximetry (%) 96 07/06/17 21:00 Constitutional: Yes: Calm Cardiovascular: Yes: Regular Rate and Rhythm, Other (2/6 WYATT RSB) Respiratory: Yes: Other (decreased basilar breath sounds) Gastrointestinal: Yes: Other (mild distension, nontender) Edema: Yes Edema: LLE: 1+, RLE: 1+ Neurological: Yes: Alert, Oriented ...Motor Strength: WNL Labs: CBC, BMP 07/06/17 05:38 07/06/17 05:38 INR, PTT INR 1.22 (0.82-1.09) H 07/03/17 17:37 - ....Imaging EKG: Image Reviewed Assessment/Plan Assessment/Plan 57 year old man with a complicated history including end-stage renal disease on dialysis, h/o endocarditis with mitral and tricuspid valve repair with recurrent moderate to severe regurgitation and pulmonary hypertension, atrial septal defect secondary to prior mitral valve surgery, TIA involving his right eye, recent admission [facility], now admitted with sob, fatigue, hypotension. SOB-volume overload -cont supp O2 -Cont with volume removal with HD as long as BP tolerates -H/H stable, does not appear to need PRBC transfusion at this time -check remainder of TFTs, TSH is elevated -outpatient plan has been for outpatient evaluation for possible ASD closure however pt has not yet followed up for this discussion, unlikely to be done on an urgent basis while hospitalized, would plan to attempt as much volume removal as possible as above and will pursue ASD closure further as outpatient -f/up echo shows normal LV function w/ severe PHTN- chronic. Afib-paroxsymal -has been NSR here -not on AC due to h/o bleeding NSVT- -Trial of Toprol, would start with low dose of 12.5mg and assess response, titrate as BP allows.
--- NOTE | 2017-07-07 10:03 | CON.GI ---
Consult Consult Specialty:: GI Referred by:: Dr. Law Reason for Consultation:: ascites - History of Present Illness History of Present Illness: A 57 yom with ESRD on HD TIW, PHTN, HTN, HLD, CHF, asthma, CAD, Hep C and substance abuse. Admitted via ED for fatigue, hypoxemia and hypotension. Smal ascites, hepatomegaly, fatty liver on US abdomen, normal liver chemistry, bilirubin, mildy elevated ALP. History of paracentesis with ~ 2L removed 1.5 y. ago, per patient. Denies dysphagia, odynophagia, GERD-like symptoms, jaundice, melena, hematochezia, hematemesis. Reoprts LE and back swelling as well as distended abdomen. Edema improved after HD. Unclear history of HCV. - History Source History Provided By: Patient, Medical Record Limitations to Obtaining History: No Limitations - Past Medical History Cardio/Vascular: Yes: CHF (Chronic diastolic HF, Severe Pulm HTN), HTN, Hyperlipdemia, Mitral Insufficiency (s/p MVR (bio)), Pulmonary Hypertension, Other (Severe Tricuspid regurgitation, Endocarditis s/p TVR/MVR, recurrent bacteremia) Pulmonary: Yes: Other (PHTN) Gastrointestinal: Yes: Ascites, Constipation Hepatobiliary: Yes: Hepatitis C Renal/: Yes: Renal Failure, Hemodialysis Psych: Yes: Addictions Musculoskeletal: Yes: Bursitis (left shoulder pain) - Past Surgical History Past Surgical History: Yes: AV Fistula/Graft, Hernia Repair (11/19) - Alcohol/Substance Use Hx Alcohol Use: No History of Substance Use: reports: Cocaine (last use 2 weeks ago), Marijuana - Smoking History Smoking history: Current every day smoker Have you smoked in the past 12 months: Yes Aproximately how many cigarettes per day: 3 - Social History ADL: Independent 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 History of Recent Travel: No Home Medications - Allergies Allergies/Adverse Reactions: Allergies Allergy/AdvReac Type Severity Reaction Status Date / Time Iodinated Contrast- Oral and Allergy Verified 07/03/17 15:20 IV Dye CONTRAST Allergy Hives Uncoded 07/03/17 15:20 - Home Medications Home Medications: Ambulatory Orders Calcium Acetate 667 mg PO TID 09/11/16 Folic Acid 1 mg PO DAILY 09/11/16 Sevelamer Carbonate [Renvela -] 1,600 mg PO BID 09/11/16 Albuterol Sulfate 0.042% [Ventolin 0.042% (Half-Strength) -] 1 amp NEB TID PRN 04/22/17 Cyclobenzaprine HCl [Flexeril -] 10 mg PO HS 04/22/17 Fluticasone Prop 0.05% Nasal [Flonase -] 1 spray NS PRN 04/22/17 Oxycodone HCl 10 mg PO QID PRN 07/03/17 Tamsulosin HCl 0.4 mg PO DAILY 07/03/17 Family Disease History - Family Disease History Family Disease History: Other: Father ( of kidney failure), Mother (muscle problems), Sister (healthy and living, HTN) Review of Systems Unable to obtain ROS, reason: Please refer to H&P Physical Exam-GI Vital Signs: Vital Signs Temperature 98.8 F 07/07/17 06:00 Pulse Rate 73 07/07/17 06:00 Respiratory Rate 20 07/07/17 06:00 Blood Pressure 123/77 07/07/17 06:00 O2 Sat by Pulse Oximetry (%) 96 07/06/17 21:00 Constitutional: Yes: No Distress, Calm Eyes: Yes: Conjunctiva Clear Cardiovascular: Yes: Regular Rate and Rhythm Respiratory: Yes: Regular ...Auscultate: Yes: Normoactive Bowel Sounds ...Palpate: Yes: Hepatomegaly, Soft. No: Guarding, Mass, Pulsatile Mass, Tenderness, Tenderness, Rebound ...Percussion: Yes: Dullness Edema: No Edema: LLE: Trace, RLE: Trace Integumentary: No: Jaundice Neurological: Yes: Alert, Oriented Labs: CBC, BMP 07/06/17 05:38 07/06/17 05:38 INR, PTT INR 1.22 (0.82-1.09) H 07/03/17 17:37 Hepatic Panel Total Bilirubin 0.3 mg/dL (0.2-1.0) 07/04/17 06:00 AST 23 U/L (15-37) 07/04/17 06:00 ALT 14 U/L (12-78) 07/04/17 06:00 Alkaline Phosphatase 120 U/L (45-117) H 07/04/17 06:00 Albumin 1.6 g/dl (3.4-5.0) L 07/04/17 06:00 CBCD WBC 4.1 K/mm3 (4.0-10.0) 07/06/17 05:38 RBC 2.92 M/mm3 (4.00-5.60) L 07/06/17 05:38 Hgb 9.2 GM/dL (11.7-16.9) L 07/06/17 05:38 Hct 28.4 % (35.4-49) L 07/06/17 05:38 MCV 97.4 fl (80-96) H 07/06/17 05:38 MCHC 32.4 g/dl (32.0-35.9) 07/06/17 05:38 RDW 18.8 % (11.9-15.9) H 07/06/17 05:38 Plt Count 170 K/MM3 (134-434) 07/06/17 05:38 MPV 9.6 fl (7.5-11.1) 07/06/17 05:38 CMP Sodium 142 mmol/L (136-145) 07/06/17 05:38 Potassium 4.2 mmol/L (3.5-5.1) 07/06/17 05:38 Chloride 104 mmol/L (98-107) 07/06/17 05:38 Carbon Dioxide 30 mmol/L (21-32) 07/06/17 05:38 Anion Gap 8 (8-16) 07/06/17 05:38 BUN 24 mg/dL (7-18) H 07/06/17 05:38 Creatinine 7.6 mg/dL (0.7-1.3) H* 07/06/17 05:38 Creat Clearance w eGFR 7.04 (>60) 07/04/17 06:00 Calcium 7.8 mg/dL (8.5-10.1) L 07/06/17 05:38 Total Bilirubin 0.3 mg/dL (0.2-1.0) 07/04/17 06:00 AST 23 U/L (15-37) 07/04/17 06:00 ALT 14 U/L (12-78) 07/04/17 06:00 Alkaline Phosphatase 120 U/L (45-117) H 07/04/17 06:00 Total Protein 4.9 g/dl (6.4-8.2) L 07/04/17 06:00 Albumin 1.6 g/dl (3.4-5.0) L 07/04/17 06:00 Imaging - Results Ultrasound: Report Reviewed Problem List - Problems (1) Other ascites Code(s): R18.8 - OTHER ASCITES (2) ESRD on hemodialysis Code(s): N18.6 - END STAGE RENAL DISEASE Z99.2 - DEPENDENCE ON RENAL DIALYSIS (3) CHF (congestive heart failure) Code(s): I50.9 - HEART FAILURE, UNSPECIFIED Assessment/Plan Miltiple, chronic, active medical problems as described above. The liver chemistry, bilirubin and ALP are not consistent with liver failure/portal hypertension that would result in hepatic ascites. The ascites is likely related to ESRD, CHF, fluid overload, low albumin state. Diagnostic paracentesis with fluid protein, albumin, LDH in conjunction with CMP will help to differentiate between those potential etiologies. Verify HCV, B, A status will follow
[2017-07-07] MEDS: HEPARIN NA (PORCINE) 5,000 UNITS/ML 1ML VIAL SQ SCH ×2 (10:04→22:21)
[2017-07-07] MEDS: FOLIC ACID 1 MG TABLET (FP) PO SCH (10:17)
[2017-07-07] MEDS: METOPROLOL SUCCINATE 25 MG TAB.SR.24H (FP) PO SCH (10:18)
--- NOTE | 2017-07-07 13:44 | PN ---
Progress Note (short form) - Note Progress Note: Per radiology, based on the most recent CT abdomen/pelvis, no ascites found. Problem List - Problems (1) Other ascites Code(s): R18.8 - OTHER ASCITES (2) ESRD on hemodialysis Code(s): N18.6 - END STAGE RENAL DISEASE Z99.2 - DEPENDENCE ON RENAL DIALYSIS (3) CHF (congestive heart failure) Code(s): I50.9 - HEART FAILURE, UNSPECIFIED
[2017-07-07 15:11] LABS: BASOPHIL 1.8 % (0-2.0); EOSINOPHIL 11.4 % (0-4.5); MCH 31.1 pg (25.7-33.7); MCHC 32.2 g/dl (32.0-35.9); MEAN CELL VOLUME 96.6 fl (80-96); MEAN PLT VOLUME 9.9 fl (7.5-11.1); NEUTROPHILS 68.7 % (42.8-82.8); PLATELET COUNT 146 K/MM3 (134-434); RDW 18.3 % (11.9-15.9); WHITE BLOOD COUNT 4.4 K/mm3 (4.0-10.0)
--- NOTE | 2017-07-07 15:26 | PN ---
Progress Note (short form) - Note Progress Note: Renal follow up for ESRD on HD Pt seen and examined at the bedside awake and alert s/p isolated UF yesterday for HD today denies any sob, chest pain at the present time Vital Signs Temperature 97.7 F 07/07/17 14:46 Pulse Rate 63 07/07/17 15:00 Respiratory Rate 18 07/07/17 15:00 Blood Pressure 90/63 07/07/17 15:00 O2 Sat by Pulse Oximetry (%) 96 07/07/17 10:25 Intake & Output 07/04/17 07/05/17 07/06/17 07/07/17 23:59 23:59 23:59 23:59 Intake Total 340 820 990 Balance 340 820 990 Weight 169 lb NAD awake and alert RRR + murmur soft NT/ND 1+ LE edema Right IJ tunneled catheter in place Labs pending Current Medications Acetaminophen (Tylenol -) 650 mg PO Q6H PRN PRN Reason: FEVER OR PAIN Last Admin: 07/07/17 00:23 Dose: 650 mg Albuterol/Ipratropium (Duoneb -) 1 amp NEB Q4H PRN PRN Reason: SHORTNESS OF BREATH Last Admin: 07/07/17 10:20 Dose: 1 amp Calcium Acetate (Phoslo -) 667 mg PO TIDCM [facility] Last Admin: 07/07/17 13:03 Dose: Not Given Cyclobenzaprine HCl (Flexeril -) 10 mg PO HS [facility] Last Admin: 07/06/17 21:02 Dose: 10 mg Folic Acid (Folic Acid -) 1 mg PO DAILY [facility] Last Admin: 07/07/17 10:17 Dose: 1 mg Heparin Sodium (Porcine) (Heparin -) 5,000 unit SQ BID [facility] Last Admin: 07/07/17 10:04 Dose: Not Given Levothyroxine Sodium (Synthroid -) 25 mcg PO DAILY@0700 [facility] Last Admin: 07/07/17 06:08 Dose: 25 mcg Metoprolol Succinate (Toprol Xl -) 12.5 mg PO DAILY [facility] Last Admin: 07/07/17 10:18 Dose: 12.5 mg Sevelamer Carbonate (Renvela -) 1,600 mg PO BID@0800,1730 [facility] Last Admin: 07/07/17 08:33 Dose: 1,600 mg Tamsulosin HCl (Flomax -) 0.4 mg PO DAILY@0830 [facility] Last Admin: 07/07/17 08:33 Dose: 0.4 mg A/P 57 year old Gentleman with PMhx of ESRD on HD (TTS), CHF, Hx of infective endocarditis s/p MVR/TVR s/p recent admission at [facility] and at [facility] presents from PMD office with SOB, Hypoxia and low BP and admitted with CHF/Volume overload. #ESRD with CHF/Volume overload in setting of valvular heart disease s/p isolated UF yesterday, for HD today with additional UF as tolerated continue fluid restriction, salt restriction will continue aggressive fluid removal as a inpatient #CKD reltaed Anemia will give dayron with HD no acute indication for transfusion Abdirashid Guthrie DO
[2017-07-07 15:38] LABS: ALBUMIN 1.6 g/dl (3.4-5.0); ANION GAP 8 (8-16); BILIRUBIN,TOTAL 0.2 mg/dL (0.2-1.0); CALCIUM 7.5 mg/dL (8.5-10.1); CO2 29 mmol/L (21-32); GLUCOSE,RANDOM 97 mg/dL (74-106); SGOT/AST 19 U/L (15-37); SGPT/ALT 15 U/L (12-78); TOT PROT 4.8 g/dl (6.4-8.2)
[2017-07-07 15:44] LABS: ALK PHOS 115 U/L (45-117)
[2017-07-07 15:55] LABS: CREATININE 8.2 mg/dL (0.7-1.3)
--- NOTE | 2017-07-07 20:25 | PN ---
Progress Note, Physician History of Present Illness: Pt feeling SOB - Current Medication List Current Medications: Active Medications Acetaminophen (Tylenol -) 650 mg PO Q6H PRN PRN Reason: FEVER OR PAIN Last Admin: 07/07/17 00:23 Dose: 650 mg Albuterol/Ipratropium (Duoneb -) 1 amp NEB Q4H PRN PRN Reason: SHORTNESS OF BREATH Last Admin: 07/07/17 10:20 Dose: 1 amp Calcium Acetate (Phoslo -) 667 mg PO TIDCM [facility] Last Admin: 07/07/17 18:01 Dose: Not Given Cyclobenzaprine HCl (Flexeril -) 10 mg PO HS [facility] Last Admin: 07/06/17 21:02 Dose: 10 mg Folic Acid (Folic Acid -) 1 mg PO DAILY [facility] Last Admin: 07/07/17 10:17 Dose: 1 mg Heparin Sodium (Porcine) (Heparin -) 5,000 unit SQ BID [facility] Last Admin: 07/07/17 10:04 Dose: Not Given Levothyroxine Sodium (Synthroid -) 25 mcg PO DAILY@0700 [facility] Last Admin: 07/07/17 06:08 Dose: 25 mcg Metoprolol Succinate (Toprol Xl -) 12.5 mg PO DAILY [facility] Last Admin: 07/07/17 10:18 Dose: 12.5 mg Sevelamer Carbonate (Renvela -) 1,600 mg PO BID@0800,1730 [facility] Last Admin: 07/07/17 18:01 Dose: Not Given Tamsulosin HCl (Flomax -) 0.4 mg PO DAILY@0830 [facility] Last Admin: 07/07/17 08:33 Dose: 0.4 mg - Objective Vital Signs: Vital Signs Temperature 97.9 F 07/07/17 18:06 Pulse Rate 80 07/07/17 18:06 Respiratory Rate 20 07/07/17 18:06 Blood Pressure 92/54 07/07/17 18:06 O2 Sat by Pulse Oximetry (%) 96 07/07/17 10:25 Constitutional: Yes: No Distress Eyes: Yes: WNL HENT: Yes: WNL Neck: Yes: WNL, Supple Cardiovascular: Yes: WNL, Regular Rate and Rhythm, Murmur Respiratory: Yes: Diminished Gastrointestinal: Yes: WNL, Normal Bowel Sounds, Soft Edema: Yes Edema: LLE: 1+, RLE: 1+ Neurological: Yes: WNL, Alert, Oriented ...Motor Strength: WNL Labs: CBC, BMP 07/07/17 14:30 07/07/17 14:30 INR, PTT INR 1.22 (0.82-1.09) H 07/03/17 17:37 Problem List - Problems (1) ESRD (end stage renal disease) on dialysis Assessment/Plan: Dialysis as per renal Permacath rt ant chest wall Vascular consult to place AV fisutla once cleared by cardio Code(s): N18.6 - END STAGE RENAL DISEASE Z99.2 - DEPENDENCE ON RENAL DIALYSIS (2) Hypotension Assessment/Plan: Antihypertensives had been stopped BP improving Code(s): I95.9 - HYPOTENSION, UNSPECIFIED (3) SOB (shortness of breath) Assessment/Plan: Cont duoneb CXR showed pulmonary vasc congestion/effusion/rt heart failure Code(s): R06.02 - SHORTNESS OF BREATH (4) Anemia in CKD (chronic kidney disease) Code(s): N18.9 - CHRONIC KIDNEY DISEASE, UNSPECIFIED D63.1 - ANEMIA IN CHRONIC KIDNEY DISEASE (5) CHF (congestive heart failure) Code(s): I50.9 - HEART FAILURE, UNSPECIFIED (6) Ascites Code(s): R18.8 - OTHER ASCITES (7) Chronic left shoulder pain Code(s): M25.512 - PAIN IN LEFT SHOULDER G89.29 - OTHER CHRONIC PAIN (8) Chronic systolic congestive heart failure Code(s): I50.22 - CHRONIC SYSTOLIC (CONGESTIVE) HEART FAILURE
[2017-07-07] MEDS: CYCLOBENZAPRINE HCL 10 MG TABLET (FP) PO SCH (21:47)
[2017-07-08] MEDS: ACETAMINOPHEN 325 MG TABLET (FP) PO PRN (00:11)
[2017-07-08] MEDS ORDERED: PANTOPRAZOLE 40 MG TABLET (FP) PO ONE (02:45)
[2017-07-08] MEDS: ALBUTEROL SO4 2.5/IPRATROPIUM 0.5 INH SOL 3 ML VIAL.NEB. NEB PRN ×3 (05:25→21:00)
[2017-07-08] MEDS: LEVOTHYROXINE NA 25 MCG TABLET (FP) PO SCH (06:29)
[2017-07-08 07:54] LABS: BASOPHIL 1.1 % (0-2.0); EOSINOPHIL 11.1 % (0-4.5); MCH 30.8 pg (25.7-33.7); MCHC 31.1 g/dl (32.0-35.9); MEAN CELL VOLUME 99.1 fl (80-96); MEAN PLT VOLUME 9.7 fl (7.5-11.1); NEUTROPHILS 68.9 % (42.8-82.8); PLATELET COUNT 152 K/MM3 (134-434); RDW 19.1 % (11.9-15.9); WHITE BLOOD COUNT 4.6 K/mm3 (4.0-10.0)
--- NOTE | 2017-07-08 08:16 | PN ---
Progress Note, Physician History of Present Illness: No significant intraperitoneal fluid on imaging, per IR. HCV Ab negative. Hep B , A pending. Discussed with the patient. No events overnight. - Current Medication List Current Medications: Active Medications Acetaminophen (Tylenol -) 650 mg PO Q6H PRN PRN Reason: FEVER OR PAIN Last Admin: 07/08/17 00:11 Dose: 650 mg Albuterol/Ipratropium (Duoneb -) 1 amp NEB Q4H PRN PRN Reason: SHORTNESS OF BREATH Last Admin: 07/08/17 05:25 Dose: 1 amp Calcium Acetate (Phoslo -) 667 mg PO TIDCM [facility] Last Admin: 07/07/17 18:01 Dose: Not Given Cyclobenzaprine HCl (Flexeril -) 10 mg PO HS [facility] Last Admin: 07/07/17 21:47 Dose: 10 mg Folic Acid (Folic Acid -) 1 mg PO DAILY [facility] Last Admin: 07/07/17 10:17 Dose: 1 mg Heparin Sodium (Porcine) (Heparin -) 5,000 unit SQ BID [facility] Last Admin: 07/07/17 22:21 Dose: Not Given Levothyroxine Sodium (Synthroid -) 25 mcg PO DAILY@0700 [facility] Last Admin: 07/08/17 06:29 Dose: 25 mcg Metoprolol Succinate (Toprol Xl -) 12.5 mg PO DAILY [facility] Last Admin: 07/07/17 10:18 Dose: 12.5 mg Sevelamer Carbonate (Renvela -) 1,600 mg PO BID@0800,1730 [facility] Last Admin: 07/07/17 18:01 Dose: Not Given Tamsulosin HCl (Flomax -) 0.4 mg PO DAILY@0830 [facility] Last Admin: 07/07/17 08:33 Dose: 0.4 mg - Objective Vital Signs: Vital Signs Temperature 98.0 F 07/08/17 06:00 Pulse Rate 75 07/08/17 06:00 Respiratory Rate 16 07/08/17 06:00 Blood Pressure 93/56 07/08/17 06:00 O2 Sat by Pulse Oximetry (%) 92 L 07/07/17 21:00 Constitutional: Yes: No Distress, Calm Gastrointestinal: Yes: Normal Bowel Sounds, Soft. No: Tenderness Labs: CBC, BMP 07/08/17 05:35 INR, PTT INR 1.22 (0.82-1.09) H 07/03/17 17:37 CBCD WBC 4.6 K/mm3 (4.0-10.0) 07/08/17 05:35 RBC 3.00 M/mm3 (4.00-5.60) L 07/08/17 05:35 Hgb 9.2 GM/dL (11.7-16.9) L D 07/08/17 05:35 Hct 29.7 % (35.4-49) L D 07/08/17 05:35 MCV 99.1 fl (80-96) H 07/08/17 05:35 MCHC 31.1 g/dl (32.0-35.9) L 07/08/17 05:35 RDW 19.1 % (11.9-15.9) H 07/08/17 05:35 Plt Count 152 K/MM3 (134-434) 07/08/17 05:35 MPV 9.7 fl (7.5-11.1) 07/08/17 05:35 CMP Sodium 143 mmol/L (136-145) 07/07/17 14:30 Potassium 4.6 mmol/L (3.5-5.1) 07/07/17 14:30 Chloride 106 mmol/L (98-107) 07/07/17 14:30 Carbon Dioxide 29 mmol/L (21-32) 07/07/17 14:30 Anion Gap 8 (8-16) 07/07/17 14:30 BUN 27 mg/dL (7-18) H 07/07/17 14:30 Creatinine 8.2 mg/dL (0.7-1.3) H* 07/07/17 14:30 Creat Clearance w eGFR 6.84 (>60) 07/07/17 14:30 Calcium 7.5 mg/dL (8.5-10.1) L 07/07/17 14:30 Total Bilirubin 0.2 mg/dL (0.2-1.0) D 07/07/17 14:30 AST 19 U/L (15-37) 07/07/17 14:30 ALT 15 U/L (12-78) 07/07/17 14:30 Alkaline Phosphatase 115 U/L (45-117) 07/07/17 14:30 Total Protein 4.8 g/dl (6.4-8.2) L 07/07/17 14:30 Albumin 1.6 g/dl (3.4-5.0) L 07/07/17 14:30 Microbiology 07/06/17 14:45 Nares - Right Nares MRSA Screen - Final NO MRSA ISOLATED 07/06/17 14:45 Nares - Left Nares MRSA Screen - Final NO MRSA ISOLATED Problem List - Problems (1) Other ascites Code(s): R18.8 - OTHER ASCITES (2) ESRD on hemodialysis Code(s): N18.6 - END STAGE RENAL DISEASE Z99.2 - DEPENDENCE ON RENAL DIALYSIS (3) CHF (congestive heart failure) Code(s): I50.9 - HEART FAILURE, UNSPECIFIED Assessment/Plan No significant peritoneal fluid on imaging. HCV negative. Discussed with the patient. Verify B, A status
[2017-07-08] MEDS: TAMSULOSIN HCL 0.4 MG CAP.ER.24H (FP) PO SCH (08:29)
[2017-07-08] MEDS: CALCIUM ACETATE 667 MG CAPSULE (FP) PO SCH ×3 (08:29→17:04)
[2017-07-08] MEDS: SEVELAMER CARBONATE 800 MG TAB (FP) PO SCH ×2 (08:29→17:04)
[2017-07-08 08:46] LABS: ALBUMIN 1.7 g/dl (3.4-5.0); ALK PHOS 117 U/L (45-117); ANION GAP 8 (8-16); BILIRUBIN,TOTAL 0.3 mg/dL (0.2-1.0); CALCIUM 7.2 mg/dL (8.5-10.1); CO2 31 mmol/L (21-32); CREATININE 5.8 mg/dL (0.7-1.3); GLUCOSE,RANDOM 87 mg/dL (74-106); MAGNESIUM 1.8 mg/dL (1.8-2.4); PHOSPHOROUS 3.4 mg/dL (2.5-4.9); SGOT/AST 20 U/L (15-37); SGPT/ALT 16 U/L (12-78); TOT PROT 4.8 g/dl (6.4-8.2)
--- NOTE | 2017-07-08 09:47 | PN ---
Progress Note, Physician Chief Complaint: TELE: NSR w/ short runs of NSVT, overall burden of V ectopy is decreased w/ addition of Toprol History of Present Illness: Feels better, less edema - Current Medication List Current Medications: Active Medications Acetaminophen (Tylenol -) 650 mg PO Q6H PRN PRN Reason: FEVER OR PAIN Last Admin: 07/08/17 00:11 Dose: 650 mg Albuterol/Ipratropium (Duoneb -) 1 amp NEB Q4H PRN PRN Reason: SHORTNESS OF BREATH Last Admin: 07/08/17 05:25 Dose: 1 amp Aspirin (Asa -) 81 mg PO DAILY [facility] Calcium Acetate (Phoslo -) 667 mg PO TIDCM [facility] Last Admin: 07/08/17 08:29 Dose: 667 mg Cyclobenzaprine HCl (Flexeril -) 10 mg PO HS [facility] Last Admin: 07/07/17 21:47 Dose: 10 mg Folic Acid (Folic Acid -) 1 mg PO DAILY [facility] Last Admin: 07/07/17 10:17 Dose: 1 mg Heparin Sodium (Porcine) (Heparin -) 5,000 unit SQ BID [facility] Last Admin: 07/07/17 22:21 Dose: Not Given Levothyroxine Sodium (Synthroid -) 25 mcg PO DAILY@0700 [facility] Last Admin: 07/08/17 06:29 Dose: 25 mcg Metoprolol Succinate (Toprol Xl -) 12.5 mg PO DAILY [facility] Last Admin: 07/07/17 10:18 Dose: 12.5 mg Sevelamer Carbonate (Renvela -) 1,600 mg PO BID@0800,1730 [facility] Last Admin: 07/08/17 08:29 Dose: 1,600 mg Tamsulosin HCl (Flomax -) 0.4 mg PO DAILY@0830 [facility] Last Admin: 07/08/17 08:29 Dose: 0.4 mg - Objective Vital Signs: Vital Signs Temperature 98.0 F 07/08/17 06:00 Pulse Rate 75 07/08/17 06:00 Respiratory Rate 16 07/08/17 06:00 Blood Pressure 93/56 07/08/17 06:00 O2 Sat by Pulse Oximetry (%) 92 L 07/07/17 21:00 Constitutional: Yes: Calm Cardiovascular: Yes: Regular Rate and Rhythm, Other (2/6 WYATT RSB, chronic) Respiratory: Yes: Other (decreased breath sounds at bases) Gastrointestinal: Yes: Soft Edema: No Neurological: Yes: Alert Labs: CBC, BMP 07/08/17 05:35 07/08/17 05:35 INR, PTT INR 1.22 (0.82-1.09) H 07/03/17 17:37 - ....Imaging MRI: Image Reviewed Assessment/Plan Assessment/Plan 57 year old man with a complicated history including end-stage renal disease on dialysis, 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 SOB-volume overload due to chronic PHTN and diastolic CHF -cont supp O2 -Cont with volume removal with HD as long as BP tolerates -outpatient plan has been for outpatient evaluation for possible ASD closure however pt has not yet followed up for this discussion, unlikely to be done on an urgent basis while hospitalized, would plan to attempt as much volume removal as possible as above and will pursue ASD closure further as outpatient -f/up echo shows normal LV function w/ severe PHTN- chronic. ASD: -Start ASA 81mg daily, prior ?occular TIA Afib-paroxsymal -has been NSR here -not on AC due to h/o bleeding and poor compliance with outpatient f/u -ASA is the safest choice at this point. NSVT- -Continue trial of Toprol, low dose. Thus far tolerated well. D/C Planning.
[2017-07-08] MEDS: HEPARIN NA (PORCINE) 5,000 UNITS/ML 1ML VIAL SQ SCH ×2 (10:10→21:35)
[2017-07-08] MEDS: METOPROLOL SUCCINATE 25 MG TAB.SR.24H (FP) PO SCH (10:11)
[2017-07-08] MEDS: FOLIC ACID 1 MG TABLET (FP) PO SCH (10:24)
[2017-07-08] MEDS: ASPIRIN 81 MG CHEWABLE TABLETS PO SCH (10:24)
--- NOTE | 2017-07-08 12:03 | PN ---
Progress Note, Physician History of Present Illness: PULMOPNARY ALERT,OOB-CHAIR,-RESP DISTRESS - Current Medication List Current Medications: Active Medications Acetaminophen (Tylenol -) 650 mg PO Q6H PRN PRN Reason: FEVER OR PAIN Last Admin: 07/08/17 00:11 Dose: 650 mg Albuterol/Ipratropium (Duoneb -) 1 amp NEB Q4H PRN PRN Reason: SHORTNESS OF BREATH Last Admin: 07/08/17 09:57 Dose: 1 amp Aspirin (Asa -) 81 mg PO DAILY [facility] Last Admin: 07/08/17 10:24 Dose: 81 mg Calcium Acetate (Phoslo -) 667 mg PO TIDCM [facility] Last Admin: 07/08/17 08:29 Dose: 667 mg Cyclobenzaprine HCl (Flexeril -) 10 mg PO HS [facility] Last Admin: 07/07/17 21:47 Dose: 10 mg Folic Acid (Folic Acid -) 1 mg PO DAILY [facility] Last Admin: 07/08/17 10:24 Dose: 1 mg Heparin Sodium (Porcine) (Heparin -) 5,000 unit SQ BID [facility] Last Admin: 07/08/17 10:10 Dose: Not Given Levothyroxine Sodium (Synthroid -) 25 mcg PO DAILY@0700 [facility] Last Admin: 07/08/17 06:29 Dose: 25 mcg Metoprolol Succinate (Toprol Xl -) 12.5 mg PO DAILY [facility] Last Admin: 07/08/17 10:11 Dose: Not Given Sevelamer Carbonate (Renvela -) 1,600 mg PO BID@0800,1730 [facility] Last Admin: 07/08/17 08:29 Dose: 1,600 mg Tamsulosin HCl (Flomax -) 0.4 mg PO DAILY@0830 [facility] Last Admin: 07/08/17 08:29 Dose: 0.4 mg - Objective Vital Signs: Vital Signs Temperature 98.0 F 07/08/17 06:00 Pulse Rate 75 07/08/17 06:00 Respiratory Rate 16 07/08/17 06:00 Blood Pressure 93/56 07/08/17 06:00 O2 Sat by Pulse Oximetry (%) 92 L 07/07/17 21:00 Constitutional: Yes: Well Nourished, Calm Eyes: Yes: WNL HENT: Yes: WNL Neck: Yes: WNL Cardiovascular: Yes: Regular Rate and Rhythm, S1, S2 Respiratory: Yes: Rales (BIBASILALR RALES) Gastrointestinal: Yes: Normal Bowel Sounds, Soft Extremities: Yes: WNL Edema: No Labs: CBC, BMP 07/08/17 05:35 07/08/17 05:35 INR, PTT INR 1.22 (0.82-1.09) H 07/03/17 17:37 Problem List - Problems (1) ESRD (end stage renal disease) on dialysis Code(s): N18.6 - END STAGE RENAL DISEASE Z99.2 - DEPENDENCE ON RENAL DIALYSIS (2) Fluid overload Code(s): E87.70 - FLUID OVERLOAD, UNSPECIFIED Qualifiers: Hypervolemia type: unspecified Qualified Code(s): E87.70 - Fluid overload, unspecified; E87.70 - Fluid overload, unspecified (3) H/O mitral valve repair Code(s): Z98.890 - OTHER SPECIFIED POSTPROCEDURAL STATES (4) Hypotension Code(s): I95.9 - HYPOTENSION, UNSPECIFIED (5) SOB (shortness of breath) Code(s): R06.02 - SHORTNESS OF BREATH (6) ESRD on hemodialysis Code(s): N18.6 - END STAGE RENAL DISEASE Z99.2 - DEPENDENCE ON RENAL DIALYSIS (7) Acute dyspnea Code(s): R06.00 - DYSPNEA, UNSPECIFIED (8) Acute on chronic combined systolic and diastolic CHF, NYHA class 4 Code(s): I50.43 - ACUTE ON CHRONIC COMBINED SYSTOLIC AND DIASTOLIC HRT FAIL (9) Anemia in ESRD (end-stage renal disease) Code(s): N18.6 - END STAGE RENAL DISEASE D63.1 - ANEMIA IN CHRONIC KIDNEY DISEASE (10) Hypoxia Code(s): R09.02 - HYPOXEMIA (11) Pulmonary hypertension Code(s): I27.2 - OTHER SECONDARY PULMONARY HYPERTENSION * DO NOT USE * (12) COPD (chronic obstructive pulmonary disease) Code(s): J44.9 - CHRONIC OBSTRUCTIVE PULMONARY DISEASE, UNSPECIFIED (13) Acute on chronic respiratory failure with hypoxemia Code(s): J96.21 - ACUTE AND CHRONIC RESPIRATORY FAILURE WITH HYPOXIA Assessment/Plan MP ACUTE HYPOXEMIC RESPIRATORY FAILURE CHF PULMONARY HTN S/P MVR,TVR COPD ESRD ANEMIA HYPOTENSION PLAN HD PER RENAL O2 INHALED BRONCHODILATORS F/U CHEST X-RAY AM MONITOR CHETTES,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 Problem List - Problems (1) ESRD (end stage renal disease) on dialysis Code(s): N18.6 - END STAGE RENAL DISEASE Z99.2 - DEPENDENCE ON RENAL DIALYSIS (2) Fluid overload Code(s): E87.70 - FLUID OVERLOAD, UNSPECIFIED Qualifiers: Hypervolemia type: unspecified Qualified Code(s): E87.70 - Fluid overload, unspecified; E87.70 - Fluid overload, unspecified (3) H/O mitral valve repair Code(s): Z98.890 - OTHER SPECIFIED POSTPROCEDURAL STATES (4) Hypotension Code(s): I95.9 - HYPOTENSION, UNSPECIFIED (5) SOB (shortness of breath) Code(s): R06.02 - SHORTNESS OF BREATH (6) ESRD on hemodialysis Code(s): N18.6 - END STAGE RENAL DISEASE Z99.2 - DEPENDENCE ON RENAL DIALYSIS (7) Acute dyspnea Code(s): R06.00 - DYSPNEA, UNSPECIFIED (8) Acute on chronic combined systolic and diastolic CHF, NYHA class 4 Code(s): I50.43 - ACUTE ON CHRONIC COMBINED SYSTOLIC AND DIASTOLIC HRT FAIL (9) Anemia in ESRD (end-stage renal disease) Code(s): N18.6 - END STAGE RENAL DISEASE D63.1 - ANEMIA IN CHRONIC KIDNEY DISEASE (10) Hypoxia Code(s): R09.02 - HYPOXEMIA (11) Pulmonary hypertension Code(s): I27.2 - OTHER SECONDARY PULMONARY HYPERTENSION * DO NOT USE * (12) COPD (chronic obstructive pulmonary disease) Code(s): J44.9 - CHRONIC OBSTRUCTIVE PULMONARY DISEASE, UNSPECIFIED (13) Acute on chronic respiratory failure with hypoxemia Code(s): J96.21 - ACUTE AND CHRONIC RESPIRATORY FAILURE WITH HYPOXIA
--- NOTE | 2017-07-08 15:18 | PN ---
Physical Exam: SUBJECTIVE: Patient seen and examined at bedside. OBJECTIVE: Vital Signs Period Temp Pulse Resp BP Sys/Anderson Pulse Ox Last 24 Hr 97.8 F-98.4 F 63-94 16-20 91-122/45-71 92-94 GENERAL: The patient is awake, alert, and fully oriented, in no acute distress. LUNGS: Bibasilar rales HEART: Regular rate and rhythm, S1, S2 ABDOMEN: Soft, nontender, nondistended EXTREMITIES: 2+ pulses, warm, well-perfused, no edema. NEUROLOGICAL: Cranial nerves II through XII grossly intact. Normal speech, gait not observed. Laboratory Results - last 24 hr 07/07/17 07/07/17 07/07/17 14:30 14:30 14:30 WBC 4.4 RBC 2.65 L Hgb 8.3 L Hct 25.6 L MCV 96.6 H MCH 31.1 MCHC 32.2 RDW 18.3 H Plt Count 146 MPV 9.9 Neutrophils % 68.7 Lymphocytes % 6.9 L Monocytes % 11.2 H Eosinophils % 11.4 H Basophils % 1.8 Sodium 143 Potassium 4.6 Chloride 106 Carbon Dioxide 29 Anion Gap 8 BUN 27 H Creatinine 8.2 H* Creat Clearance w eGFR 6.84 Random Glucose 97 Calcium 7.5 L Phosphorus Magnesium Total Bilirubin 0.2 D AST 19 ALT 15 Alkaline Phosphatase 115 Total Protein 4.8 L Albumin 1.6 L Hepatitis C Antibody <0.1 07/08/17 07/08/17 05:35 05:35 WBC 4.6 RBC 3.00 L Hgb 9.2 L D Hct 29.7 L D MCV 99.1 H MCH 30.8 MCHC 31.1 L RDW 19.1 H Plt Count 152 MPV 9.7 Neutrophils % 68.9 Lymphocytes % 9.4 D Monocytes % 9.5 Eosinophils % 11.1 H Basophils % 1.1 Sodium 144 Potassium 3.8 Chloride 105 Carbon Dioxide 31 Anion Gap 8 BUN 19 H D Creatinine 5.8 H D Creat Clearance w eGFR 10.20 Random Glucose 87 Calcium 7.2 L Phosphorus 3.4 Magnesium 1.8 Total Bilirubin 0.3 D AST 20 ALT 16 Alkaline Phosphatase 117 Total Protein 4.8 L Albumin 1.7 L Hepatitis C Antibody Active Medications Generic Name Dose Route Start Last Admin Trade Name Freq PRN Reason Stop Dose Admin Acetaminophen 650 mg 07/04/17 17:08 07/08/17 00:11 Tylenol - PO 650 mg Q6H PRN Administration FEVER OR PAIN Albuterol/Ipratropium 1 amp 07/06/17 13:25 07/08/17 09:57 Duoneb - NEB 1 amp Q4H PRN Administration SHORTNESS OF BREATH Aspirin 81 mg 07/08/17 10:00 07/08/17 10:24 Asa - PO 81 mg DAILY [facility] Administration Calcium Acetate 667 mg 07/06/17 19:47 07/08/17 12:08 Phoslo - PO 667 mg TIDCM [facility] Administration Cyclobenzaprine HCl 10 mg 07/04/17 22:00 07/07/17 21:47 Flexeril - PO 10 mg HS [facility] Administration Folic Acid 1 mg 07/04/17 10:00 07/08/17 10:24 Folic Acid - PO 1 mg DAILY [facility] Administration Heparin Sodium (Porcine) 5,000 unit 07/04/17 10:00 07/08/17 10:10 Heparin - SQ Not Given BID [facility] Levothyroxine Sodium 25 mcg 07/07/17 07:00 07/08/17 06:29 Synthroid - PO 25 mcg DAILY@0700 [facility] Administration Metoprolol Succinate 12.5 mg 07/07/17 10:00 07/08/17 10:11 Toprol Xl - PO Not Given DAILY [facility] Sevelamer Carbonate 1,600 mg 07/06/17 20:09 07/08/17 08:29 Renvela - PO 1,600 mg BID@0800,1730 [facility] Administration Tamsulosin HCl 0.4 mg 07/04/17 08:30 07/08/17 08:29 Flomax - PO 0.4 mg DAILY@0830 [facility] Administration ASSESSMENT/PLAN 57 year-old male with a PMH significant for systolic heart failure, infective endocarditis s/p MVR/TVR, and ESRD on HD (T,T,S). Admitted in acute on chronic hypoxic respiratory failure in the setting of decompensated heart failure. (1) ESRD (end stage renal disease) on dialysis Dialysis as per renal Permacath rt ant chest wall Vascular consult to place AV fisutla once cleared by cardio (2) Hypotension Mildly hypotensive Antihypertensives had been stopped (3) Acute on chronic hypoxic respiratory failure duonebs (4) Acute on chronic systolic heart failure 07/07 CXR shows no significant change; congestive changes persist; dense left base Down 5kg since 07/03 (5) Anemia in CKD (chronic kidney disease) (6) Ascites (7) Chronic left shoulder pain Visit type - Emergency Visit Emergency Visit: Yes ED Registration Date: 07/03/17 Care time: The patient presented to the Emergency Department on the above date and was hospitalized for further evaluation of their emergent condition. - New Patient This patient is new to me today: Yes Date on this admission: 07/08/17 - Critical Care Critical Care patient: No
--- NOTE | 2017-07-08 17:21 | PN ---
Progress Note (short form) - Note Progress Note: Renal follow up for ESRD on HD Pt seen and examined at the bedside awake and alert reports diffuse pain which is chornic SOB and swelling are improved no N/V/D s/p dialysis yesterday Vital Signs Temperature 97.9 F 07/08/17 14:15 Pulse Rate 78 07/08/17 14:15 Respiratory Rate 16 07/08/17 14:15 Blood Pressure 101/61 07/08/17 14:15 O2 Sat by Pulse Oximetry (%) 94 L 07/08/17 09:00 Intake & Output 07/05/17 07/06/17 07/07/17 07/08/17 23:59 23:59 23:59 23:59 Intake Total 820 1210 520 Balance 820 1210 520 Weight 169 lb NAD awake and alert RRR + murmur soft NT/ND trace LE edema Right IJ tunneled catheter in place CBC, BMP 07/08/17 05:35 07/08/17 05:35 Current Medications Acetaminophen (Tylenol -) 650 mg PO Q6H PRN PRN Reason: FEVER OR PAIN Last Admin: 07/08/17 00:11 Dose: 650 mg Albuterol/Ipratropium (Duoneb -) 1 amp NEB Q4H PRN PRN Reason: SHORTNESS OF BREATH Last Admin: 07/08/17 09:57 Dose: 1 amp Aspirin (Asa -) 81 mg PO DAILY [facility] Last Admin: 07/08/17 10:24 Dose: 81 mg Calcium Acetate (Phoslo -) 667 mg PO TIDCM [facility] Last Admin: 07/08/17 17:04 Dose: 667 mg Cyclobenzaprine HCl (Flexeril -) 10 mg PO HS [facility] Last Admin: 07/07/17 21:47 Dose: 10 mg Folic Acid (Folic Acid -) 1 mg PO DAILY [facility] Last Admin: 07/08/17 10:24 Dose: 1 mg Heparin Sodium (Porcine) (Heparin -) 5,000 unit SQ BID [facility] Last Admin: 07/08/17 10:10 Dose: Not Given Levothyroxine Sodium (Synthroid -) 25 mcg PO DAILY@0700 [facility] Last Admin: 07/08/17 06:29 Dose: 25 mcg Metoprolol Succinate (Toprol Xl -) 12.5 mg PO DAILY [facility] Last Admin: 07/08/17 10:11 Dose: Not Given Sevelamer Carbonate (Renvela -) 1,600 mg PO BID@0800,1730 [facility] Last Admin: 07/08/17 17:04 Dose: 1,600 mg Tamsulosin HCl (Flomax -) 0.4 mg PO DAILY@0830 [facility] Last Admin: 07/08/17 08:29 Dose: 0.4 mg A/P 57 year old Gentleman with PMhx of ESRD on HD (TTS), CHF, Hx of infective endocarditis s/p MVR/TVR s/p recent admission at [facility] and at [facility] presents from PMD office with SOB, Hypoxia and low BP and admitted with CHF/Volume overload. #ESRD with CHF/Volume overload in setting of valvular heart disease s/p HD with UF yesterday volume status and weight are improved Given low bp and improved status will not plan for UF today next dialysis is planned for tomorrow Fluid restriction salt restriction dose all meds for intermittent HD #CKD reltaed Anemia will give dayron with HD iron saturation is 16%, will given Venofer x 1 with HD tomorrow no acute indication for transfusion Abdirashid Guthrie DO
[2017-07-08] MEDS: CYCLOBENZAPRINE HCL 10 MG TABLET (FP) PO SCH (21:38)
[2017-07-09] MEDS: ACETAMINOPHEN 325 MG TABLET (FP) PO PRN (00:25)
[2017-07-09] MEDS: ALBUTEROL SO4 2.5/IPRATROPIUM 0.5 INH SOL 3 ML VIAL.NEB. NEB PRN ×4 (00:54→21:46)
[2017-07-09] MEDS: LEVOTHYROXINE NA 25 MCG TABLET (FP) PO SCH (06:00)
[2017-07-09] MEDS: SEVELAMER CARBONATE 800 MG TAB (FP) PO SCH ×2 (07:59→17:49)
[2017-07-09] MEDS: CALCIUM ACETATE 667 MG CAPSULE (FP) PO SCH ×3 (07:59→17:49)
[2017-07-09] MEDS: TAMSULOSIN HCL 0.4 MG CAP.ER.24H (FP) PO SCH ×2 (08:00→12:12)
[2017-07-09 08:51] LABS: MCH 30.8 pg (25.7-33.7); MCHC 32.2 g/dl (32.0-35.9); MEAN CELL VOLUME 95.7 fl (80-96); MEAN PLT VOLUME 9.5 fl (7.5-11.1); PLATELET COUNT 137 K/MM3 (134-434); WHITE BLOOD COUNT 4.4 K/mm3 (4.0-10.0)
[2017-07-09] MEDS ORDERED: IRON SUCROSE INJECTION 100 MG in SODIUM CHLORIDE 95 ML IVPB ONE (09:00)
[2017-07-09] MEDS ORDERED: EPOETIN ALFA 10,000 UNIT/1 ML VIAL IVPUSH ONE (09:00)
[2017-07-09 09:06] LABS: ANION GAP 6 (8-16); CALCIUM 7.3 mg/dL (8.5-10.1); CO2 31 mmol/L (21-32); CREATININE 7.3 mg/dL (0.7-1.3); GLUCOSE,RANDOM 103 mg/dL (74-106); PHOSPHOROUS 3.5 mg/dL (2.5-4.9)
[2017-07-09] MEDS: HEPARIN NA (PORCINE) 5,000 UNITS/ML 1ML VIAL SQ SCH ×2 (11:12→22:02)
--- NOTE | 2017-07-09 11:46 | PN ---
Progress Note, Physician History of Present Illness: seen and examined today in nad. currently on HD. 2L removed today but developed hypotension thus HD continued without volume removal. only c/o feeling very tired. wants to go home. - Current Medication List Current Medications: Active Medications Acetaminophen (Tylenol -) 650 mg PO Q6H PRN PRN Reason: FEVER OR PAIN Last Admin: 07/09/17 00:25 Dose: 650 mg Albuterol/Ipratropium (Duoneb -) 1 amp NEB Q4H PRN PRN Reason: SHORTNESS OF BREATH Last Admin: 07/09/17 06:06 Dose: 1 amp Aspirin (Asa -) 81 mg PO DAILY [facility] Last Admin: 07/08/17 10:24 Dose: 81 mg Calcium Acetate (Phoslo -) 667 mg PO TIDCM [facility] Last Admin: 07/09/17 07:59 Dose: Not Given Cyclobenzaprine HCl (Flexeril -) 10 mg PO HS [facility] Last Admin: 07/08/17 21:38 Dose: 10 mg Folic Acid (Folic Acid -) 1 mg PO DAILY [facility] Last Admin: 07/08/17 10:24 Dose: 1 mg Heparin Sodium (Porcine) (Heparin -) 5,000 unit SQ BID [facility] Last Admin: 07/09/17 11:12 Dose: Not Given Levothyroxine Sodium (Synthroid -) 25 mcg PO DAILY@0700 [facility] Last Admin: 07/09/17 06:00 Dose: 25 mcg Metoprolol Succinate (Toprol Xl -) 12.5 mg PO DAILY [facility] Last Admin: 07/08/17 10:11 Dose: Not Given Sevelamer Carbonate (Renvela -) 1,600 mg PO BID@0800,1730 [facility] Last Admin: 07/09/17 07:59 Dose: Not Given Tamsulosin HCl (Flomax -) 0.4 mg PO DAILY@0830 [facility] Last Admin: 07/09/17 08:00 Dose: Not Given - Objective Vital Signs: Vital Signs Temperature 98.0 F 07/09/17 07:45 Pulse Rate 80 07/09/17 11:28 Respiratory Rate 18 07/09/17 11:28 Blood Pressure 99/55 07/09/17 11:28 O2 Sat by Pulse Oximetry (%) 94 L 07/08/17 21:00 Constitutional: Yes: No Distress, Calm Eyes: Yes: Conjunctiva Clear, EOM Intact, PERRL HENT: Yes: Atraumatic, Normocephalic Neck: Yes: Supple, Trachea Midline Cardiovascular: Yes: Regular Rate and Rhythm, Murmur, S1, S2. No: Bradycardia, Tachycardia, Pulse Irregular, Bruit, JVD, Gallop, Rub, S3, S4, Varicosities Respiratory: Yes: Regular, Diminished, Rales. No: Rhonchi, SOB, Wheezes Gastrointestinal: Yes: Normal Bowel Sounds, Soft. No: Distention, Tenderness Extremities: Yes: WNL Edema: No Peripheral Pulses WNL: Yes Peripheral Pulses: Left Doralis Pedis: 2+, Right Dorsalis Pedis: 2+ Neurological: Yes: Alert, Oriented Psychiatric: Yes: Alert, Oriented Labs: CBC, BMP 07/09/17 08:00 07/09/17 08:00 INR, PTT INR 1.22 (0.82-1.09) H 07/03/17 17:37 - ....Imaging Chest X-ray: Report Reviewed, Image Reviewed EKG: Report Reviewed, Image Reviewed Other: Report Reviewed, Image Reviewed (tele-nsr, pvcs, NSVT 3 beats, 4 beats, 8 beats) Assessment/Plan 57 year old man with a complicated history including end-stage renal disease on dialysis, h/o 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 SOB-volume overload due to chronic PHTN and diastolic CHF -volume status has improved -cont supp O2 -Cont with volume removal with HD as long as BP tolerates -outpatient plan has been for outpatient evaluation for possible ASD closure however pt has not yet followed up for this discussion, unlikely to be done on an urgent basis while hospitalized, would plan to attempt as much volume removal as possible as above and will pursue ASD closure further as outpatient -echo here shows normal LV function w/ severe PHTN- chronic. ASD: -Cont ASA 81mg daily for possible prior occular TIA Afib-paroxsymal -has been NSR here -not on AC due to h/o bleeding and poor compliance with outpatient f/u -Cont ASA as per previous discussion NSVT- short runs, asymptomatic with normal LV systolic function -Toprol was held yesterday for low BP, has only received 1 dose on 07/07 -cont Toprol 12.5mg daily if BP tolerates -outpatient f/up
[2017-07-09] MEDS: METOPROLOL SUCCINATE 25 MG TAB.SR.24H (FP) PO SCH (12:03)
[2017-07-09] MEDS: ASPIRIN 81 MG CHEWABLE TABLETS PO SCH (12:12)
[2017-07-09] MEDS: FOLIC ACID 1 MG TABLET (FP) PO SCH (12:12)
--- NOTE | 2017-07-09 12:51 | PN ---
Progress Note (short form) - Note Progress Note: PULMONARY Still some shortness of breath, feels as if something stuck in throat with upper airway wheezing. Last Vital Signs Temp Pulse Resp BP Pulse Ox 98.2 F 80 18 99/55 92 L 07/09/17 10:00 07/09/17 11:28 07/09/17 11:28 07/09/17 11:28 07/09/17 09:00 Gen: mildly tachypneic at rest Heart: RRR Lung: scattered rhonchi, rales Abd: soft, nontender Ext: no edema CBC, BMP 07/09/17 08:00 07/09/17 08:00 Active Medications Acetaminophen (Tylenol -) 650 mg PO Q6H PRN PRN Reason: FEVER OR PAIN Last Admin: 07/09/17 00:25 Dose: 650 mg Albuterol/Ipratropium (Duoneb -) 1 amp NEB Q4H PRN PRN Reason: SHORTNESS OF BREATH Last Admin: 07/09/17 06:06 Dose: 1 amp Aspirin (Asa -) 81 mg PO DAILY [facility] Last Admin: 07/09/17 12:12 Dose: 81 mg Calcium Acetate (Phoslo -) 667 mg PO TIDCM [facility] Last Admin: 07/09/17 12:12 Dose: 667 mg Cyclobenzaprine HCl (Flexeril -) 10 mg PO HS [facility] Last Admin: 07/08/17 21:38 Dose: 10 mg Folic Acid (Folic Acid -) 1 mg PO DAILY [facility] Last Admin: 07/09/17 12:12 Dose: 1 mg Heparin Sodium (Porcine) (Heparin -) 5,000 unit SQ BID [facility] Last Admin: 07/09/17 11:12 Dose: Not Given Levothyroxine Sodium (Synthroid -) 25 mcg PO DAILY@0700 [facility] Last Admin: 07/09/17 06:00 Dose: 25 mcg Metoprolol Succinate (Toprol Xl -) 12.5 mg PO DAILY [facility] Last Admin: 07/09/17 12:03 Dose: Not Given Sevelamer Carbonate (Renvela -) 1,600 mg PO BID@0800,1730 [facility] Last Admin: 07/09/17 07:59 Dose: Not Given Tamsulosin HCl (Flomax -) 0.4 mg PO DAILY@0830 [facility] Last Admin: 07/09/17 12:12 Dose: 0.4 mg A/P Acute on Chronic Diastolic Heart Failure Pulmonary HTN ESRD on HD h/o MVR/TVR COPD - will order CT chest noncontrast - HD per renal with ultrafiltration - inhaled bronchodilators - O2 to keep SpO2 >90% - outpt PFTs
--- NOTE | 2017-07-09 14:01 | PN ---
Progress Note (short form) - Note Progress Note: Renal follow up for ESRD on HD Pt seen and examined at the bedside s/p dialysis this am with 2kg UF BP was marginal no sob, chest pain, cramping with HD pt continues to have MARQUIS no cough Vital Signs Temperature 98.2 F 07/09/17 10:00 Pulse Rate 80 07/09/17 11:28 Respiratory Rate 18 07/09/17 11:28 Blood Pressure 99/55 07/09/17 11:28 O2 Sat by Pulse Oximetry (%) 92 L 07/09/17 09:00 Intake & Output 07/06/17 07/07/17 07/08/17 07/09/17 23:59 23:59 23:59 23:59 Intake Total 820 1210 640 500 Balance 820 1210 640 500 Weight 169 lb 167 lb 6 oz NAD awake and alert RRR + murmur + rales at lung bases soft NT/ND trace to 1+ LE edema Right IJ tunneled catheter in place CBC, BMP 07/09/17 08:00 07/09/17 08:00 Current Medications Acetaminophen (Tylenol -) 650 mg PO Q6H PRN PRN Reason: FEVER OR PAIN Last Admin: 07/09/17 00:25 Dose: 650 mg Albuterol/Ipratropium (Duoneb -) 1 amp NEB Q4H PRN PRN Reason: SHORTNESS OF BREATH Last Admin: 07/09/17 06:06 Dose: 1 amp Aspirin (Asa -) 81 mg PO DAILY [facility] Last Admin: 07/09/17 12:12 Dose: 81 mg Calcium Acetate (Phoslo -) 667 mg PO TIDCM [facility] Last Admin: 07/09/17 12:12 Dose: 667 mg Cyclobenzaprine HCl (Flexeril -) 10 mg PO HS [facility] Last Admin: 07/08/17 21:38 Dose: 10 mg Folic Acid (Folic Acid -) 1 mg PO DAILY [facility] Last Admin: 07/09/17 12:12 Dose: 1 mg Heparin Sodium (Porcine) (Heparin -) 5,000 unit SQ BID [facility] Last Admin: 07/09/17 11:12 Dose: Not Given Levothyroxine Sodium (Synthroid -) 25 mcg PO DAILY@0700 [facility] Last Admin: 07/09/17 06:00 Dose: 25 mcg Metoprolol Succinate (Toprol Xl -) 12.5 mg PO DAILY [facility] Last Admin: 07/09/17 12:03 Dose: Not Given Sevelamer Carbonate (Renvela -) 1,600 mg PO BID@0800,1730 [facility] Last Admin: 07/09/17 07:59 Dose: Not Given Tamsulosin HCl (Flomax -) 0.4 mg PO DAILY@0830 [facility] Last Admin: 07/09/17 12:12 Dose: 0.4 mg A/P 57 year old Gentleman with PMhx of ESRD on HD (TTS), CHF, Hx of infective endocarditis s/p MVR/TVR s/p recent admission at [facility] and at [facility] presents from PMD office with SOB, Hypoxia and low BP and admitted with CHF/Volume overload. #ESRD with CHF/Volume overload in setting of valvular heart disease tolerated dialysis well this am however despite UF this am still has dyspnea and congestion on CXR will arrange for extra UF tomorrow continue low salt diet, fluid restriction #CKD reltaed Anemia s/p Epogen and Venofer with HD today will continue the same with subsequent dialysis Abdirashid Guthrie DO
--- NOTE | 2017-07-09 19:51 | PN ---
Progress Note, Physician History of Present Illness: Pt feeling SOB - Current Medication List Current Medications: Active Medications Acetaminophen (Tylenol -) 650 mg PO Q6H PRN PRN Reason: FEVER OR PAIN Last Admin: 07/09/17 00:25 Dose: 650 mg Albuterol/Ipratropium (Duoneb -) 1 amp NEB Q4H PRN PRN Reason: SHORTNESS OF BREATH Last Admin: 07/09/17 16:02 Dose: 1 amp Aspirin (Asa -) 81 mg PO DAILY [facility] Last Admin: 07/09/17 12:12 Dose: 81 mg Calcium Acetate (Phoslo -) 667 mg PO TIDCM [facility] Last Admin: 07/09/17 17:49 Dose: 667 mg Cyclobenzaprine HCl (Flexeril -) 10 mg PO HS [facility] Last Admin: 07/08/17 21:38 Dose: 10 mg Folic Acid (Folic Acid -) 1 mg PO DAILY [facility] Last Admin: 07/09/17 12:12 Dose: 1 mg Heparin Sodium (Porcine) (Heparin -) 5,000 unit SQ BID [facility] Last Admin: 07/09/17 11:12 Dose: Not Given Levothyroxine Sodium (Synthroid -) 25 mcg PO DAILY@0700 [facility] Last Admin: 07/09/17 06:00 Dose: 25 mcg Metoprolol Succinate (Toprol Xl -) 12.5 mg PO DAILY [facility] Last Admin: 07/09/17 12:03 Dose: Not Given Sevelamer Carbonate (Renvela -) 1,600 mg PO BID@0800,1730 [facility] Last Admin: 07/09/17 17:49 Dose: 1,600 mg Tamsulosin HCl (Flomax -) 0.4 mg PO DAILY@0830 [facility] Last Admin: 07/09/17 12:12 Dose: 0.4 mg - Objective Vital Signs: Vital Signs Temperature 98.2 F 07/09/17 14:49 Pulse Rate 81 07/09/17 14:49 Respiratory Rate 16 07/09/17 14:49 Blood Pressure 92/51 07/09/17 14:49 O2 Sat by Pulse Oximetry (%) 92 L 07/09/17 11:00 HENT: Yes: WNL Neck: Yes: WNL, Supple Cardiovascular: Yes: WNL, Regular Rate and Rhythm Respiratory: Yes: Diminished Gastrointestinal: Yes: WNL, Normal Bowel Sounds, Soft Edema: LLE: Trace, RLE: Trace Labs: CBC, BMP 07/09/17 08:00 07/09/17 08:00 INR, PTT INR 1.22 (0.82-1.09) H 07/03/17 17:37 Problem List - Problems (1) ESRD (end stage renal disease) on dialysis Code(s): N18.6 - END STAGE RENAL DISEASE Z99.2 - DEPENDENCE ON RENAL DIALYSIS (2) Hypotension Code(s): I95.9 - HYPOTENSION, UNSPECIFIED (3) SOB (shortness of breath) Code(s): R06.02 - SHORTNESS OF BREATH (4) Anemia in CKD (chronic kidney disease) Code(s): N18.9 - CHRONIC KIDNEY DISEASE, UNSPECIFIED D63.1 - ANEMIA IN CHRONIC KIDNEY DISEASE (5) CHF (congestive heart failure) Code(s): I50.9 - HEART FAILURE, UNSPECIFIED (6) Ascites Code(s): R18.8 - OTHER ASCITES (7) Chronic left shoulder pain Code(s): M25.512 - PAIN IN LEFT SHOULDER G89.29 - OTHER CHRONIC PAIN (8) Chronic systolic congestive heart failure Code(s): I50.22 - CHRONIC SYSTOLIC (CONGESTIVE) HEART FAILURE
[2017-07-09] MEDS: CYCLOBENZAPRINE HCL 10 MG TABLET (FP) PO SCH (22:02)
[2017-07-10] MEDS: ACETAMINOPHEN 325 MG TABLET (FP) PO PRN (00:07)
[2017-07-10] MEDS: LEVOTHYROXINE NA 25 MCG TABLET (FP) PO SCH (06:21)
[2017-07-10] MEDS: CALCIUM ACETATE 667 MG CAPSULE (FP) PO SCH ×3 (08:38→17:16)
[2017-07-10] MEDS: SEVELAMER CARBONATE 800 MG TAB (FP) PO SCH ×2 (08:41→17:16)
[2017-07-10] MEDS: TAMSULOSIN HCL 0.4 MG CAP.ER.24H (FP) PO SCH (08:41)
[2017-07-10] MEDS: FOLIC ACID 1 MG TABLET (FP) PO SCH (09:05)
--- NOTE | 2017-07-10 09:17 | PN ---
Progress Note, Physician Chief Complaint: no distress TELE: NSR, w/ few short runs NSVT (max 3 beats) - Current Medication List Current Medications: Active Medications Acetaminophen (Tylenol -) 650 mg PO Q6H PRN PRN Reason: FEVER OR PAIN Last Admin: 07/10/17 00:07 Dose: 650 mg Albuterol/Ipratropium (Duoneb -) 1 amp NEB Q4H PRN PRN Reason: SHORTNESS OF BREATH Last Admin: 07/09/17 21:46 Dose: 1 amp Aspirin (Asa -) 81 mg PO DAILY [facility] Last Admin: 07/09/17 12:12 Dose: 81 mg Calcium Acetate (Phoslo -) 667 mg PO TIDCM [facility] Last Admin: 07/10/17 08:38 Dose: 667 mg Cyclobenzaprine HCl (Flexeril -) 10 mg PO HS [facility] Last Admin: 07/09/17 22:02 Dose: 10 mg Folic Acid (Folic Acid -) 1 mg PO DAILY [facility] Last Admin: 07/09/17 12:12 Dose: 1 mg Heparin Sodium (Porcine) (Heparin -) 5,000 unit SQ BID [facility] Last Admin: 07/09/17 22:02 Dose: Not Given Levothyroxine Sodium (Synthroid -) 25 mcg PO DAILY@0700 [facility] Last Admin: 07/10/17 06:21 Dose: 25 mcg Metoprolol Succinate (Toprol Xl -) 12.5 mg PO DAILY [facility] Last Admin: 07/09/17 12:03 Dose: Not Given Sevelamer Carbonate (Renvela -) 1,600 mg PO BID@0800,1730 [facility] Last Admin: 07/10/17 08:41 Dose: 1,600 mg Tamsulosin HCl (Flomax -) 0.4 mg PO DAILY@0830 [facility] Last Admin: 07/10/17 08:41 Dose: 0.4 mg - Objective Vital Signs: Vital Signs Temperature 98.2 F 07/10/17 08:44 Pulse Rate 91 H 07/10/17 08:44 Respiratory Rate 18 07/10/17 08:44 Blood Pressure 112/71 07/10/17 08:44 O2 Sat by Pulse Oximetry (%) 94 L 07/09/17 21:00 Constitutional: Yes: Calm Cardiovascular: Yes: Regular Rate and Rhythm, Murmur (2/6 WYATT throughout, chronic) Respiratory: Yes: Other (decreased breath sounds left) Gastrointestinal: Yes: Soft, Abdomen, Obese Edema: No Neurological: Yes: Alert, Oriented ...Motor Strength: WNL Labs: CBC, BMP 07/09/17 08:00 07/09/17 08:00 INR, PTT INR 1.22 (0.82-1.09) H 07/03/17 17:37 - ....Imaging EKG: Image Reviewed Assessment/Plan Assessment/Plan 57 year old man with a complicated history including end-stage renal disease on dialysis, h/o endocarditis with mitral and tricuspid valve repair with recurrent moderate to severe regurgitation and pulmonary hypertension, atrial septal defect secondary to prior mitral valve surgery, TIA involving his right eye, recent admission [facility], now admitted with sob, fatigue, hypotension. SOB-volume overload due to chronic PHTN and diastolic CHF -volume status has improved -cont supp O2 -Cont with volume removal with HD as long as BP tolerates -outpatient plan has been for outpatient evaluation for possible ASD closure however pt has not yet followed up for this discussion, unlikely to be done on an urgent basis while hospitalized, would plan to attempt as much volume removal as possible as above and will pursue ASD closure further as outpatient -echo here shows normal LV function w/ severe PHTN- chronic. -Pulmonary eval for large left effusion: may need thoracentesis ASD: -Cont ASA 81mg daily for possible prior occular TIA Afib-paroxsymal -has been NSR here -not on AC due to h/o bleeding and poor compliance with outpatient f/u -Cont ASA as per previous discussion NSVT- short runs, asymptomatic with normal LV systolic function -Toprol was held yesterday for low BP, has only received 1 dose on 07/07 -cont Toprol 12.5mg daily if BP tolerates -outpatient f/up
[2017-07-10] MEDS: HEPARIN NA (PORCINE) 5,000 UNITS/ML 1ML VIAL SQ SCH ×2 (09:57→21:13)
[2017-07-10] MEDS: ASPIRIN 81 MG CHEWABLE TABLETS PO SCH (09:57)
[2017-07-10] MEDS: METOPROLOL SUCCINATE 25 MG TAB.SR.24H (FP) PO SCH (09:57)
[2017-07-10 10:23] LABS: MCH 30.5 pg (25.7-33.7); MEAN CELL VOLUME 95.3 fl (80-96); PLATELET COUNT 137 K/MM3 (134-434); RDW 17.7 % (11.9-15.9); WHITE BLOOD COUNT 4.5 K/mm3 (4.0-10.0)
[2017-07-10 10:57] LABS: ANION GAP 5 (8-16); CALCIUM 7.5 mg/dL (8.5-10.1); CO2 32 mmol/L (21-32); CREATININE 5.8 mg/dL (0.7-1.3); GLUCOSE,RANDOM 99 mg/dL (74-106); MAGNESIUM 1.9 mg/dL (1.8-2.4)
--- NOTE | 2017-07-10 12:07 | PN ---
Progress Note, Physician History of Present Illness: pulmonary alert,lrss dyspneic,on dialysis. chest ct large left pleural effusion - Current Medication List Current Medications: Active Medications Acetaminophen (Tylenol -) 650 mg PO Q6H PRN PRN Reason: FEVER OR PAIN Last Admin: 07/10/17 00:07 Dose: 650 mg Albuterol/Ipratropium (Duoneb -) 1 amp NEB Q4H PRN PRN Reason: SHORTNESS OF BREATH Last Admin: 07/09/17 21:46 Dose: 1 amp Aspirin (Asa -) 81 mg PO DAILY [facility] Last Admin: 07/10/17 09:57 Dose: 81 mg Calcium Acetate (Phoslo -) 667 mg PO TIDCM [facility] Last Admin: 07/10/17 08:38 Dose: 667 mg Cyclobenzaprine HCl (Flexeril -) 10 mg PO HS [facility] Last Admin: 07/09/17 22:02 Dose: 10 mg Folic Acid (Folic Acid -) 1 mg PO DAILY [facility] Last Admin: 07/10/17 09:05 Dose: 1 mg Heparin Sodium (Porcine) (Heparin -) 5,000 unit SQ BID [facility] Last Admin: 07/10/17 09:57 Dose: Not Given Levothyroxine Sodium (Synthroid -) 25 mcg PO DAILY@0700 [facility] Last Admin: 07/10/17 06:21 Dose: 25 mcg Metoprolol Succinate (Toprol Xl -) 12.5 mg PO DAILY [facility] Last Admin: 07/10/17 09:57 Dose: Not Given Sevelamer Carbonate (Renvela -) 1,600 mg PO BID@0800,1730 [facility] Last Admin: 07/10/17 08:41 Dose: 1,600 mg Tamsulosin HCl (Flomax -) 0.4 mg PO DAILY@0830 [facility] Last Admin: 07/10/17 08:41 Dose: 0.4 mg - Objective Vital Signs: Vital Signs Temperature 98.2 F 07/10/17 10:00 Pulse Rate 81 07/10/17 11:00 Respiratory Rate 18 07/10/17 11:00 Blood Pressure 100/62 07/10/17 11:00 O2 Sat by Pulse Oximetry (%) 94 L 07/09/17 21:00 Constitutional: Yes: Well Nourished, Calm Eyes: Yes: WNL HENT: Yes: WNL Neck: Yes: WNL Cardiovascular: Yes: Regular Rate and Rhythm, S1, S2 Respiratory: Yes: Rales (crackles r base,diminished bs left 1/3 up) Gastrointestinal: Yes: Normal Bowel Sounds, Soft Extremities: Yes: WNL Edema: No Labs: CBC, BMP 07/10/17 10:00 07/10/17 10:00 INR, PTT INR 1.22 (0.82-1.09) H 07/03/17 17:37 Problem List - Problems (1) ESRD (end stage renal disease) on dialysis Code(s): N18.6 - END STAGE RENAL DISEASE Z99.2 - DEPENDENCE ON RENAL DIALYSIS (2) Fluid overload Code(s): E87.70 - FLUID OVERLOAD, UNSPECIFIED Qualifiers: Hypervolemia type: unspecified Qualified Code(s): E87.70 - Fluid overload, unspecified; E87.70 - Fluid overload, unspecified (3) H/O mitral valve repair Code(s): Z98.890 - OTHER SPECIFIED POSTPROCEDURAL STATES (4) Hypotension Code(s): I95.9 - HYPOTENSION, UNSPECIFIED (5) SOB (shortness of breath) Code(s): R06.02 - SHORTNESS OF BREATH (6) ESRD on hemodialysis Code(s): N18.6 - END STAGE RENAL DISEASE Z99.2 - DEPENDENCE ON RENAL DIALYSIS (7) Acute dyspnea Code(s): R06.00 - DYSPNEA, UNSPECIFIED (8) Acute on chronic combined systolic and diastolic CHF, NYHA class 4 Code(s): I50.43 - ACUTE ON CHRONIC COMBINED SYSTOLIC AND DIASTOLIC HRT FAIL (9) Anemia in ESRD (end-stage renal disease) Code(s): N18.6 - END STAGE RENAL DISEASE D63.1 - ANEMIA IN CHRONIC KIDNEY DISEASE (10) Hypoxia Code(s): R09.02 - HYPOXEMIA (11) Pulmonary hypertension Code(s): I27.2 - OTHER SECONDARY PULMONARY HYPERTENSION * DO NOT USE * (12) COPD (chronic obstructive pulmonary disease) Code(s): J44.9 - CHRONIC OBSTRUCTIVE PULMONARY DISEASE, UNSPECIFIED (13) Acute on chronic respiratory failure with hypoxemia Code(s): J96.21 - ACUTE AND CHRONIC RESPIRATORY FAILURE WITH HYPOXIA Assessment/Plan MP ACUTE HYPOXEMIC RESPIRATORY FAILURE CHF PULMONARY HTN S/P MVR,TVR COPD ESRD ANEMIA HYPOTENSION PLAN HD PER RENAL O2 INHALED BRONCHODILATORS F/U CHEST X-RAY THURSDAY IF NO CHANGE WILL THORACENTESIS WITH ULTRASOUND 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,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 Problem List - Problems (1) ESRD (end stage renal disease) on dialysis Code(s): N18.6 - END STAGE RENAL DISEASE Z99.2 - DEPENDENCE ON RENAL DIALYSIS (2) Fluid overload Code(s): E87.70 - FLUID OVERLOAD, UNSPECIFIED Qualifiers: Hypervolemia type: unspecified Qualified Code(s): E87.70 - Fluid overload, unspecified; E87.70 - Fluid overload, unspecified (3) H/O mitral valve repair Code(s): Z98.890 - OTHER SPECIFIED POSTPROCEDURAL STATES (4) Hypotension Code(s): I95.9 - HYPOTENSION, UNSPECIFIED (5) SOB (shortness of breath) Code(s): R06.02 - SHORTNESS OF BREATH (6) ESRD on hemodialysis Code(s): N18.6 - END STAGE RENAL DISEASE Z99.2 - DEPENDENCE ON RENAL DIALYSIS (7) Acute dyspnea Code(s): R06.00 - DYSPNEA, UNSPECIFIED (8) Acute on chronic combined systolic and diastolic CHF, NYHA class 4 Code(s): I50.43 - ACUTE ON CHRONIC COMBINED SYSTOLIC AND DIASTOLIC HRT FAIL (9) Anemia in ESRD (end-stage renal disease) Code(s): N18.6 - END STAGE RENAL DISEASE D63.1 - ANEMIA IN CHRONIC KIDNEY DISEASE (10) Hypoxia Code(s): R09.02 - HYPOXEMIA (11) Pulmonary hypertension Code(s): I27.2 - OTHER SECONDARY PULMONARY HYPERTENSION * DO NOT USE * (12) COPD (chronic obstructive pulmonary disease) Code(s): J44.9 - CHRONIC OBSTRUCTIVE PULMONARY DISEASE, UNSPECIFIED (13) Acute on chronic respiratory failure with hypoxemia Code(s): J96.21 - ACUTE AND CHRONIC RESPIRATORY FAILURE WITH HYPOXIA
--- NOTE | 2017-07-10 14:48 | PN ---
Progress Note (short form) - Note Progress Note: Renal follow up for ESRD on HD Pt seen and examined during isolated UF UF goal is 2L BP is stable no cramping access with good flow no acute complaints. NAD awake and alert RRR + murmur Dec BS at lung bases no Le edema CBC, BMP 07/10/17 10:00 07/10/17 10:00 Laboratory Tests 07/09/17 07/10/17 08:00 10:00 Calcium 7.3 L 7.5 L Phosphorus 3.5 Magnesium 1.9 Current Medications Acetaminophen (Tylenol -) 650 mg PO Q6H PRN PRN Reason: FEVER OR PAIN Last Admin: 07/10/17 00:07 Dose: 650 mg Albuterol/Ipratropium (Duoneb -) 1 amp NEB Q4H PRN PRN Reason: SHORTNESS OF BREATH Last Admin: 07/09/17 21:46 Dose: 1 amp Aspirin (Asa -) 81 mg PO DAILY [facility] Last Admin: 07/10/17 09:57 Dose: 81 mg Calcium Acetate (Phoslo -) 667 mg PO TIDCM [facility] Last Admin: 07/10/17 12:53 Dose: 667 mg Cyclobenzaprine HCl (Flexeril -) 10 mg PO HS [facility] Last Admin: 07/09/17 22:02 Dose: 10 mg Folic Acid (Folic Acid -) 1 mg PO DAILY [facility] Last Admin: 07/10/17 09:05 Dose: 1 mg Heparin Sodium (Porcine) (Heparin -) 5,000 unit SQ BID [facility] Last Admin: 07/10/17 09:57 Dose: Not Given Levothyroxine Sodium (Synthroid -) 25 mcg PO DAILY@0700 [facility] Last Admin: 07/10/17 06:21 Dose: 25 mcg Metoprolol Succinate (Toprol Xl -) 12.5 mg PO DAILY [facility] Last Admin: 07/10/17 09:57 Dose: Not Given Sevelamer Carbonate (Renvela -) 1,600 mg PO BID@0800,1730 [facility] Last Admin: 07/10/17 08:41 Dose: 1,600 mg Tamsulosin HCl (Flomax -) 0.4 mg PO DAILY@0830 [facility] Last Admin: 07/10/17 08:41 Dose: 0.4 mg A/P 57 year old Gentleman with PMhx of ESRD on HD (TTS), CHF, Hx of infective endocarditis s/p MVR/TVR s/p recent admission at [facility] and at [facility] presents from PMD office with SOB, Hypoxia and low BP and admitted with CHF/Volume overload. #ESRD with CHF/Volume overload in setting of valvular heart disease pt is tolerating UF well for Hd tomorrow dose all meds for intermittent HD will continue to be aggressive with volume removal with HD #CKD reltaed Anemia will continue high dose Epogen and Iron load with HD Abdirashid Guthrie DO
--- NOTE | 2017-07-10 18:52 | PN ---
Progress Note, Physician History of Present Illness: No new complaints - Current Medication List Current Medications: Active Medications Acetaminophen (Tylenol -) 650 mg PO Q6H PRN PRN Reason: FEVER OR PAIN Last Admin: 07/10/17 00:07 Dose: 650 mg Albuterol/Ipratropium (Duoneb -) 1 amp NEB Q4H PRN PRN Reason: SHORTNESS OF BREATH Last Admin: 07/09/17 21:46 Dose: 1 amp Aspirin (Asa -) 81 mg PO DAILY [facility] Last Admin: 07/10/17 09:57 Dose: 81 mg Calcium Acetate (Phoslo -) 667 mg PO TIDCM [facility] Last Admin: 07/10/17 17:16 Dose: 667 mg Cyclobenzaprine HCl (Flexeril -) 10 mg PO HS [facility] Last Admin: 07/09/17 22:02 Dose: 10 mg Epoetin Cornelio (Epogen -) 20,000 units IVPUSH ONCE ONE Stop: 07/11/17 06:01 Folic Acid (Folic Acid -) 1 mg PO DAILY [facility] Last Admin: 07/10/17 09:05 Dose: 1 mg Heparin Sodium (Porcine) (Heparin -) 5,000 unit SQ BID [facility] Last Admin: 07/10/17 09:57 Dose: Not Given Iron Sucrose 100 mg/ Sodium (Chloride) 100 mls @ 200 mls/hr IVPB ONCE ONE Stop: 07/11/17 06:29 Levothyroxine Sodium (Synthroid -) 25 mcg PO DAILY@0700 [facility] Last Admin: 07/10/17 06:21 Dose: 25 mcg Metoprolol Succinate (Toprol Xl -) 12.5 mg PO DAILY [facility] Last Admin: 07/10/17 09:57 Dose: Not Given Sevelamer Carbonate (Renvela -) 1,600 mg PO BID@0800,1730 [facility] Last Admin: 07/10/17 17:16 Dose: 1,600 mg Tamsulosin HCl (Flomax -) 0.4 mg PO DAILY@0830 [facility] Last Admin: 07/10/17 08:41 Dose: 0.4 mg - Objective Vital Signs: Vital Signs Temperature 97.2 F L 07/10/17 14:11 Pulse Rate 90 07/10/17 14:11 Respiratory Rate 20 07/10/17 14:11 Blood Pressure 103/54 07/10/17 14:11 O2 Sat by Pulse Oximetry (%) 94 L 07/09/17 21:00 HENT: Yes: WNL Neck: Yes: WNL, Supple Cardiovascular: Yes: WNL, Regular Rate and Rhythm Respiratory: Yes: Diminished Gastrointestinal: Yes: WNL, Normal Bowel Sounds, Soft Edema: LLE: Trace, RLE: Trace Labs: CBC, BMP 07/10/17 10:00 07/10/17 10:00 INR, PTT INR 1.22 (0.82-1.09) H 07/03/17 17:37 Problem List - Problems (1) ESRD (end stage renal disease) on dialysis Code(s): N18.6 - END STAGE RENAL DISEASE Z99.2 - DEPENDENCE ON RENAL DIALYSIS (2) Hypotension Code(s): I95.9 - HYPOTENSION, UNSPECIFIED (3) SOB (shortness of breath) Code(s): R06.02 - SHORTNESS OF BREATH (4) Anemia in CKD (chronic kidney disease) Code(s): N18.9 - CHRONIC KIDNEY DISEASE, UNSPECIFIED D63.1 - ANEMIA IN CHRONIC KIDNEY DISEASE (5) CHF (congestive heart failure) Code(s): I50.9 - HEART FAILURE, UNSPECIFIED (6) Ascites Code(s): R18.8 - OTHER ASCITES (7) Chronic left shoulder pain Code(s): M25.512 - PAIN IN LEFT SHOULDER G89.29 - OTHER CHRONIC PAIN (8) Chronic systolic congestive heart failure Code(s): I50.22 - CHRONIC SYSTOLIC (CONGESTIVE) HEART FAILURE
[2017-07-10] MEDS: ALBUTEROL SO4 2.5/IPRATROPIUM 0.5 INH SOL 3 ML VIAL.NEB. NEB PRN (20:45)
[2017-07-11] MEDS: CYCLOBENZAPRINE HCL 10 MG TABLET (FP) PO SCH (00:34)
[2017-07-11] MEDS: ACETAMINOPHEN 325 MG TABLET (FP) PO PRN (00:35)
[2017-07-11] MEDS: ALBUTEROL SO4 2.5/IPRATROPIUM 0.5 INH SOL 3 ML VIAL.NEB. NEB PRN ×2 (04:59→21:20)
--- NOTE | 2017-07-11 06:58 | PN ---
Progress Note, Physician History of Present Illness: seen and examined today in nad. states he is feeling ok. no overnight events. no new complaints. - Current Medication List Current Medications: Active Medications Acetaminophen (Tylenol -) 650 mg PO Q6H PRN PRN Reason: FEVER OR PAIN Last Admin: 07/11/17 00:35 Dose: 650 mg Albuterol/Ipratropium (Duoneb -) 1 amp NEB Q4H PRN PRN Reason: SHORTNESS OF BREATH Last Admin: 07/11/17 04:59 Dose: 1 amp Aspirin (Asa -) 81 mg PO DAILY [facility] Last Admin: 07/10/17 09:57 Dose: 81 mg Calcium Acetate (Phoslo -) 667 mg PO TIDCM [facility] Last Admin: 07/10/17 17:16 Dose: 667 mg Cyclobenzaprine HCl (Flexeril -) 10 mg PO HS [facility] Last Admin: 07/11/17 00:34 Dose: 10 mg Epoetin Cornelio (Epogen -) 20,000 units IVPUSH ONCE ONE Stop: 07/11/17 06:01 Folic Acid (Folic Acid -) 1 mg PO DAILY [facility] Last Admin: 07/10/17 09:05 Dose: 1 mg Heparin Sodium (Porcine) (Heparin -) 5,000 unit SQ BID [facility] Last Admin: 07/10/17 21:13 Dose: Not Given Iron Sucrose 100 mg/ Sodium (Chloride) 100 mls @ 200 mls/hr IVPB ONCE ONE Stop: 07/11/17 06:29 Levothyroxine Sodium (Synthroid -) 25 mcg PO DAILY@0700 [facility] Last Admin: 07/10/17 06:21 Dose: 25 mcg Metoprolol Succinate (Toprol Xl -) 12.5 mg PO DAILY [facility] Last Admin: 07/10/17 09:57 Dose: Not Given Sevelamer Carbonate (Renvela -) 1,600 mg PO BID@0800,1730 [facility] Last Admin: 07/10/17 17:16 Dose: 1,600 mg Tamsulosin HCl (Flomax -) 0.4 mg PO DAILY@0830 [facility] Last Admin: 07/10/17 08:41 Dose: 0.4 mg - Objective Vital Signs: Vital Signs Temperature 98.1 F 07/10/17 18:00 Pulse Rate 75 07/10/17 18:00 Respiratory Rate 18 07/10/17 21:00 Blood Pressure 112/66 07/10/17 18:00 O2 Sat by Pulse Oximetry (%) 94 L 07/09/17 21:00 Constitutional: Yes: No Distress, Calm Eyes: Yes: Conjunctiva Clear, EOM Intact, PERRL HENT: Yes: Atraumatic, Normocephalic Neck: Yes: Supple, Trachea Midline Cardiovascular: Yes: Regular Rate and Rhythm, Murmur, S1, S2. No: Bradycardia, Tachycardia, Pulse Irregular, Bruit, JVD, Gallop, Rub, S3, S4, Varicosities Respiratory: Yes: Regular, Diminished, Rales. No: Rhonchi, SOB, Wheezes Gastrointestinal: Yes: Normal Bowel Sounds, Soft. No: Distention, Tenderness Extremities: Yes: WNL Edema: No Peripheral Pulses WNL: Yes Peripheral Pulses: Left Doralis Pedis: 2+, Right Dorsalis Pedis: 2+ Neurological: Yes: Alert, Oriented Psychiatric: Yes: Alert, Oriented Labs: CBC, BMP 07/10/17 10:00 07/10/17 10:00 INR, PTT INR 1.22 (0.82-1.09) H 07/03/17 17:37 - ....Imaging Chest X-ray: Report Reviewed, Image Reviewed EKG: Report Reviewed, Image Reviewed Other: Report Reviewed, Image Reviewed (tele-NSR, frequent PVCs, short runs NSVT ) Assessment/Plan 57 year old man with a complicated history including end-stage renal disease on dialysis, h/o endocarditis with mitral and tricuspid valve repair with recurrent moderate to severe regurgitation and pulmonary hypertension, atrial septal defect secondary to prior mitral valve surgery, TIA involving his right eye, recent admission [facility], now admitted with sob, fatigue, hypotension. SOB-volume overload due to chronic PHTN and diastolic CHF, large pleural effusion -volume status has overall improved, found to have Large pleural effusion -Cont with volume removal with HD as long as BP tolerates -Plan as per pulmonary is if pleural effusion does not show improvement this weekend will go for thoracentesis -If Aspirin needs to be held for thoracentesis would hold it as soon as possible so this does not delay the procedure (IF Aspirin needs to be held) -echo here shows normal LV function w/ severe PHTN- chronic. ASD: -Cont ASA 81mg daily for possible prior occular TIA -outpatient f/up for further management Afib-paroxsymal -has been NSR throughout admission -not on AC due to h/o bleeding and poor compliance with outpatient f/u -Cont ASA NSVT- short runs, asymptomatic with normal LV systolic function -Toprol has been held each day for low BP, only received 1 dose on 07/07 -cont Toprol 12.5mg daily if BP tolerates -outpatient f/up
[2017-07-11] MEDS: LEVOTHYROXINE NA 25 MCG TABLET (FP) PO SCH (08:03)
[2017-07-11] MEDS: CALCIUM ACETATE 667 MG CAPSULE (FP) PO SCH ×3 (08:30→17:31)
[2017-07-11] MEDS: SEVELAMER CARBONATE 800 MG TAB (FP) PO SCH ×2 (08:30→17:32)
[2017-07-11] MEDS: TAMSULOSIN HCL 0.4 MG CAP.ER.24H (FP) PO SCH ×2 (08:30→13:31)
[2017-07-11] MEDS: ASPIRIN 81 MG CHEWABLE TABLETS PO SCH (09:39)
[2017-07-11] MEDS: METOPROLOL SUCCINATE 25 MG TAB.SR.24H (FP) PO SCH (09:39)
[2017-07-11] MEDS: FOLIC ACID 1 MG TABLET (FP) PO SCH ×2 (09:39→13:31)
[2017-07-11] MEDS: HEPARIN NA (PORCINE) 5,000 UNITS/ML 1ML VIAL SQ SCH (09:41)
--- NOTE | 2017-07-11 09:48 | PN ---
Progress Note (short form) - Note Progress Note: Renal follow up for ESRD on HD Pt seen and examined during dialysis access with good flow no acute complaints goal UF is 3L as tolerated Vital Signs Temperature 98.1 F 07/10/17 18:00 Pulse Rate 89 07/11/17 09:45 Respiratory Rate 20 07/11/17 09:45 Blood Pressure 104/71 07/11/17 09:45 O2 Sat by Pulse Oximetry (%) 94 L 07/09/17 21:00 Intake & Output 07/08/17 07/09/17 07/10/17 07/11/17 23:59 23:59 23:59 23:59 Intake Total 640 850 750 150 Balance 640 850 750 150 Weight 167 lb 6 oz NAD awake and alert RRR + murmur Dec BS at lung bases no Le edema CBC, BMP 07/10/17 10:00 07/10/17 10:00 Laboratory Tests 07/10/17 10:00 Calcium 7.5 L Magnesium 1.9 Current Medications Acetaminophen (Tylenol -) 650 mg PO Q6H PRN PRN Reason: FEVER OR PAIN Last Admin: 07/11/17 00:35 Dose: 650 mg Albuterol/Ipratropium (Duoneb -) 1 amp NEB Q4H PRN PRN Reason: SHORTNESS OF BREATH Last Admin: 07/11/17 04:59 Dose: 1 amp Aspirin (Asa -) 81 mg PO DAILY [facility] Last Admin: 07/11/17 09:39 Dose: Not Given Calcium Acetate (Phoslo -) 667 mg PO TIDCM [facility] Last Admin: 07/11/17 08:30 Dose: Not Given Cyclobenzaprine HCl (Flexeril -) 10 mg PO HS [facility] Last Admin: 07/11/17 00:34 Dose: 10 mg Epoetin Cornelio (Procrit -) 20,000 unit IVPUSH ONCE ONE Stop: 07/11/17 10:11 Folic Acid (Folic Acid -) 1 mg PO DAILY [facility] Last Admin: 07/11/17 09:39 Dose: Not Given Heparin Sodium (Porcine) (Heparin -) 5,000 unit SQ BID [facility] Last Admin: 07/11/17 09:41 Dose: Not Given Iron Sucrose 100 mg/ Sodium (Chloride) 100 mls @ 200 mls/hr IVPB ONCE ONE Stop: 07/11/17 10:44 Levothyroxine Sodium (Synthroid -) 25 mcg PO DAILY@0700 [facility] Last Admin: 07/11/17 08:03 Dose: 25 mcg Metoprolol Succinate (Toprol Xl -) 12.5 mg PO DAILY [facility] Last Admin: 07/11/17 09:39 Dose: Not Given Sevelamer Carbonate (Renvela -) 1,600 mg PO BID@0800,1730 [facility] Last Admin: 07/11/17 08:30 Dose: Not Given Tamsulosin HCl (Flomax -) 0.4 mg PO DAILY@0830 [facility] Last Admin: 07/11/17 08:30 Dose: Not Given A/P 57 year old Gentleman with PMhx of ESRD on HD (TTS), CHF, Hx of infective endocarditis s/p MVR/TVR s/p recent admission at [facility] and at [facility] presents from PMD office with SOB, Hypoxia and low BP and admitted with CHF/Volume overload. #ESRD with CHF/Volume overload in setting of valvular heart disease tolerating HD well UF goal is 3L continue fluid restriction continue aggressive UF #CKD reltaed Anemia will continue high dose Epogen and Iron load with HD D/c planning as per primary Abdirashid Guthrie DO
[2017-07-11] MEDS ORDERED: EPOETIN ALFA 20,000 UNIT/1 ML VIAL IVPUSH ONE (10:10)
[2017-07-11] MEDS ORDERED: IRON SUCROSE INJECTION 100 MG in SODIUM CHLORIDE 95 ML IVPB ONE (10:15)
[2017-07-11 10:27] LABS: MCHC 32.3 g/dl (32.0-35.9); MEAN CELL VOLUME 95.9 fl (80-96); MEAN PLT VOLUME 9.7 fl (7.5-11.1); PLATELET COUNT 150 K/MM3 (134-434); RDW 17.8 % (11.9-15.9)
[2017-07-11 10:46] LABS: ANION GAP 6 (8-16); CALCIUM 7.6 mg/dL (8.5-10.1); CO2 32 mmol/L (21-32); CREATININE 5.6 mg/dL (0.7-1.3); GLUCOSE,RANDOM 101 mg/dL (74-106)
--- NOTE | 2017-07-11 12:47 | PN ---
Progress Note, Physician History of Present Illness: PULMONARY ALERT,FEELING BETTER,-RESP DISTRESS - Current Medication List Current Medications: Active Medications Acetaminophen (Tylenol -) 650 mg PO Q6H PRN PRN Reason: FEVER OR PAIN Last Admin: 07/11/17 00:35 Dose: 650 mg Albuterol/Ipratropium (Duoneb -) 1 amp NEB Q4H PRN PRN Reason: SHORTNESS OF BREATH Last Admin: 07/11/17 04:59 Dose: 1 amp Aspirin (Asa -) 81 mg PO DAILY [facility] Last Admin: 07/11/17 09:39 Dose: Not Given Calcium Acetate (Phoslo -) 667 mg PO TIDCM [facility] Last Admin: 07/11/17 08:30 Dose: Not Given Cyclobenzaprine HCl (Flexeril -) 10 mg PO HS [facility] Last Admin: 07/11/17 00:34 Dose: 10 mg Folic Acid (Folic Acid -) 1 mg PO DAILY [facility] Last Admin: 07/11/17 09:39 Dose: Not Given Levothyroxine Sodium (Synthroid -) 25 mcg PO DAILY@0700 [facility] Last Admin: 07/11/17 08:03 Dose: 25 mcg Metoprolol Succinate (Toprol Xl -) 12.5 mg PO DAILY [facility] Last Admin: 07/11/17 09:39 Dose: Not Given Sevelamer Carbonate (Renvela -) 1,600 mg PO BID@0800,1730 [facility] Last Admin: 07/11/17 08:30 Dose: Not Given Tamsulosin HCl (Flomax -) 0.4 mg PO DAILY@0830 [facility] Last Admin: 07/11/17 08:30 Dose: Not Given - Objective Vital Signs: Vital Signs Temperature 98.1 F 07/10/17 18:00 Pulse Rate 79 07/11/17 11:30 Respiratory Rate 18 07/11/17 11:30 Blood Pressure 96/49 07/11/17 11:30 O2 Sat by Pulse Oximetry (%) 94 L 07/09/17 21:00 Constitutional: Yes: Well Nourished, Calm Eyes: Yes: WNL HENT: Yes: WNL Neck: Yes: WNL Cardiovascular: Yes: Regular Rate and Rhythm, S1, S2 Respiratory: Yes: Diminished Gastrointestinal: Yes: Normal Bowel Sounds, Soft Extremities: Yes: WNL Edema: No Labs: CBC, BMP 07/11/17 10:10 07/11/17 10:10 INR, PTT INR 1.22 (0.82-1.09) H 07/03/17 17:37 Problem List - Problems (1) ESRD (end stage renal disease) on dialysis Code(s): N18.6 - END STAGE RENAL DISEASE Z99.2 - DEPENDENCE ON RENAL DIALYSIS (2) Fluid overload Code(s): E87.70 - FLUID OVERLOAD, UNSPECIFIED Qualifiers: Hypervolemia type: unspecified Qualified Code(s): E87.70 - Fluid overload, unspecified; E87.70 - Fluid overload, unspecified (3) H/O mitral valve repair Code(s): Z98.890 - OTHER SPECIFIED POSTPROCEDURAL STATES (4) Hypotension Code(s): I95.9 - HYPOTENSION, UNSPECIFIED (5) SOB (shortness of breath) Code(s): R06.02 - SHORTNESS OF BREATH (6) ESRD on hemodialysis Code(s): N18.6 - END STAGE RENAL DISEASE Z99.2 - DEPENDENCE ON RENAL DIALYSIS (7) Acute dyspnea Code(s): R06.00 - DYSPNEA, UNSPECIFIED (8) Acute on chronic combined systolic and diastolic CHF, NYHA class 4 Code(s): I50.43 - ACUTE ON CHRONIC COMBINED SYSTOLIC AND DIASTOLIC HRT FAIL (9) Anemia in ESRD (end-stage renal disease) Code(s): N18.6 - END STAGE RENAL DISEASE D63.1 - ANEMIA IN CHRONIC KIDNEY DISEASE (10) Hypoxia Code(s): R09.02 - HYPOXEMIA (11) Pulmonary hypertension Code(s): I27.2 - OTHER SECONDARY PULMONARY HYPERTENSION * DO NOT USE * (12) COPD (chronic obstructive pulmonary disease) Code(s): J44.9 - CHRONIC OBSTRUCTIVE PULMONARY DISEASE, UNSPECIFIED (13) Acute on chronic respiratory failure with hypoxemia Code(s): J96.21 - ACUTE AND CHRONIC RESPIRATORY FAILURE WITH HYPOXIA Assessment/Plan MP ACUTE HYPOXEMIC RESPIRATORY FAILURE CHF PULMONARY HTN S/P MVR,TVR COPD ESRD ANEMIA HYPOTENSION PLAN HD PER RENAL O2 INHALED BRONCHODILATORS F/U CHEST X-RAY THURSDAY IF NO CHANGE WILL THORACENTESIS WITH ULTRASOUND 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,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 Problem List - Problems (1) ESRD (end stage renal disease) on dialysis Code(s): N18.6 - END STAGE RENAL DISEASE Z99.2 - DEPENDENCE ON RENAL DIALYSIS (2) Fluid overload Code(s): E87.70 - FLUID OVERLOAD, UNSPECIFIED Qualifiers: Hypervolemia type: unspecified Qualified Code(s): E87.70 - Fluid overload, unspecified; E87.70 - Fluid overload, unspecified (3) H/O mitral valve repair Code(s): Z98.890 - OTHER SPECIFIED POSTPROCEDURAL STATES (4) Hypotension Code(s): I95.9 - HYPOTENSION, UNSPECIFIED (5) SOB (shortness of breath) Code(s): R06.02 - SHORTNESS OF BREATH (6) ESRD on hemodialysis Code(s): N18.6 - END STAGE RENAL DISEASE Z99.2 - DEPENDENCE ON RENAL DIALYSIS (7) Acute dyspnea Code(s): R06.00 - DYSPNEA, UNSPECIFIED (8) Acute on chronic combined systolic and diastolic CHF, NYHA class 4 Code(s): I50.43 - ACUTE ON CHRONIC COMBINED SYSTOLIC AND DIASTOLIC HRT FAIL (9) Anemia in ESRD (end-stage renal disease) Code(s): N18.6 - END STAGE RENAL DISEASE D63.1 - ANEMIA IN CHRONIC KIDNEY DISEASE (10) Hypoxia Code(s): R09.02 - HYPOXEMIA (11) Pulmonary hypertension Code(s): I27.2 - OTHER SECONDARY PULMONARY HYPERTENSION * DO NOT USE * (12) COPD (chronic obstructive pulmonary disease) Code(s): J44.9 - CHRONIC OBSTRUCTIVE PULMONARY DISEASE, UNSPECIFIED (13) Acute on chronic respiratory failure with hypoxemia Code(s): J96.21 - ACUTE AND CHRONIC RESPIRATORY FAILURE WITH HYPOXIA
[2017-07-11 14:03] LABS: CREATININE 2.1 mg/dL (0.7-1.3)
--- NOTE | 2017-07-11 17:43 | PN ---
Progress Note, Physician - Current Medication List Current Medications: Active Medications Acetaminophen (Tylenol -) 650 mg PO Q6H PRN PRN Reason: FEVER OR PAIN Last Admin: 07/11/17 00:35 Dose: 650 mg Calcium Acetate (Phoslo -) 667 mg PO TIDCM [facility] Last Admin: 07/11/17 17:31 Dose: 667 mg Cyclobenzaprine HCl (Flexeril -) 10 mg PO HS [facility] Last Admin: 07/11/17 00:34 Dose: 10 mg Folic Acid (Folic Acid -) 1 mg PO DAILY [facility] Last Admin: 07/11/17 13:31 Dose: 1 mg Levothyroxine Sodium (Synthroid -) 25 mcg PO DAILY@0700 [facility] Last Admin: 07/11/17 08:03 Dose: 25 mcg Metoprolol Succinate (Toprol Xl -) 12.5 mg PO DAILY [facility] Last Admin: 07/11/17 09:39 Dose: Not Given Sevelamer Carbonate (Renvela -) 1,600 mg PO BID@0800,1730 [facility] Last Admin: 07/11/17 17:32 Dose: 1,600 mg Tamsulosin HCl (Flomax -) 0.4 mg PO DAILY@0830 [facility] Last Admin: 07/11/17 13:31 Dose: 0.4 mg - Objective Vital Signs: Vital Signs Temperature 98.1 F 07/10/17 18:00 Pulse Rate 87 07/11/17 13:20 Respiratory Rate 18 07/11/17 13:20 Blood Pressure 115/47 07/11/17 13:20 O2 Sat by Pulse Oximetry (%) 94 L 07/09/17 21:00 HENT: Yes: WNL Neck: Yes: WNL, Supple Cardiovascular: Yes: WNL, Regular Rate and Rhythm Respiratory: Yes: Diminished Gastrointestinal: Yes: WNL, Normal Bowel Sounds, Soft Labs: CBC, BMP 07/11/17 10:10 07/11/17 12:00 INR, PTT INR 1.22 (0.82-1.09) H 07/03/17 17:37 Problem List - Problems (1) ESRD (end stage renal disease) on dialysis Code(s): N18.6 - END STAGE RENAL DISEASE Z99.2 - DEPENDENCE ON RENAL DIALYSIS (2) Hypotension Code(s): I95.9 - HYPOTENSION, UNSPECIFIED (3) SOB (shortness of breath) Code(s): R06.02 - SHORTNESS OF BREATH (4) Anemia in CKD (chronic kidney disease) Code(s): N18.9 - CHRONIC KIDNEY DISEASE, UNSPECIFIED D63.1 - ANEMIA IN CHRONIC KIDNEY DISEASE (5) CHF (congestive heart failure) Code(s): I50.9 - HEART FAILURE, UNSPECIFIED (6) Ascites Code(s): R18.8 - OTHER ASCITES (7) Chronic left shoulder pain Code(s): M25.512 - PAIN IN LEFT SHOULDER G89.29 - OTHER CHRONIC PAIN (8) Chronic systolic congestive heart failure Code(s): I50.22 - CHRONIC SYSTOLIC (CONGESTIVE) HEART FAILURE
[2017-07-11] MEDS ORDERED: PT OWN MED DRAWER 7, Y5N ONE (23:47)
[2017-07-12] MEDS: ACETAMINOPHEN 325 MG TABLET (FP) PO PRN (00:56)
[2017-07-12] MEDS: CYCLOBENZAPRINE HCL 10 MG TABLET (FP) PO SCH (00:56)
[2017-07-12] MEDS ORDERED: PT OWN MED DRAWER 7, Y5N ONE (01:02)
[2017-07-12] MEDS: LEVOTHYROXINE NA 25 MCG TABLET (FP) PO SCH (06:24)
[2017-07-12 08:51] LABS: ANION GAP 7 (8-16); CALCIUM 7.5 mg/dL (8.5-10.1); CO2 31 mmol/L (21-32); CREATININE 4.5 mg/dL (0.7-1.3); GLUCOSE,RANDOM 81 mg/dL (74-106)
[2017-07-12] MEDS: CALCIUM ACETATE 667 MG CAPSULE (FP) PO SCH ×3 (09:51→17:34)
[2017-07-12] MEDS: SEVELAMER CARBONATE 800 MG TAB (FP) PO SCH ×2 (09:51→17:34)
[2017-07-12] MEDS: FOLIC ACID 1 MG TABLET (FP) PO SCH (09:52)
[2017-07-12] MEDS: TAMSULOSIN HCL 0.4 MG CAP.ER.24H (FP) PO SCH (09:52)
[2017-07-12] MEDS: METOPROLOL SUCCINATE 25 MG TAB.SR.24H (FP) PO SCH (09:53)
[2017-07-12] MEDS: ALBUTEROL SO4 2.5/IPRATROPIUM 0.5 INH SOL 3 ML VIAL.NEB. NEB PRN ×2 (10:07→21:45)
--- NOTE | 2017-07-12 10:28 | PN ---
Progress Note, Physician History of Present Illness: Seen and examined today in [facility]. states he is feeling better. ambulates in room on his own. walked with PT yesterday. - Current Medication List Current Medications: Active Medications Acetaminophen (Tylenol -) 650 mg PO Q6H PRN PRN Reason: FEVER OR PAIN Last Admin: 07/12/17 00:56 Dose: 650 mg Albuterol/Ipratropium (Duoneb -) 1 amp NEB Q4H PRN PRN Reason: SHORTNESS OF BREATH Last Admin: 07/12/17 10:07 Dose: 1 amp Calcium Acetate (Phoslo -) 667 mg PO TIDCM [facility] Last Admin: 07/12/17 09:51 Dose: 667 mg Cyclobenzaprine HCl (Flexeril -) 10 mg PO HS [facility] Last Admin: 07/12/17 00:56 Dose: 10 mg Folic Acid (Folic Acid -) 1 mg PO DAILY [facility] Last Admin: 07/12/17 09:52 Dose: 1 mg Levothyroxine Sodium (Synthroid -) 25 mcg PO DAILY@0700 [facility] Last Admin: 07/12/17 06:24 Dose: 25 mcg Metoprolol Succinate (Toprol Xl -) 12.5 mg PO DAILY [facility] Last Admin: 07/12/17 09:53 Dose: Not Given Sevelamer Carbonate (Renvela -) 1,600 mg PO BID@0800,1730 [facility] Last Admin: 07/12/17 09:51 Dose: 1,600 mg Tamsulosin HCl (Flomax -) 0.4 mg PO DAILY@0830 [facility] Last Admin: 07/12/17 09:52 Dose: 0.4 mg - Objective Vital Signs: Vital Signs Temperature 98.1 F 07/12/17 09:54 Pulse Rate 87 07/12/17 10:08 Respiratory Rate 18 07/12/17 09:54 Blood Pressure 92/53 07/12/17 09:54 O2 Sat by Pulse Oximetry (%) 91 L 07/12/17 10:08 Constitutional: Yes: No Distress, Calm Eyes: Yes: Conjunctiva Clear, EOM Intact, PERRL HENT: Yes: Atraumatic, Normocephalic Neck: Yes: Supple, Trachea Midline Cardiovascular: Yes: Regular Rate and Rhythm, Murmur, S1, S2. No: Bradycardia, Tachycardia, Pulse Irregular, Bruit, JVD, Gallop, Rub, S3, S4, Varicosities Respiratory: Yes: Regular, Diminished, On Nasal O2. No: Rales, Rhonchi, SOB, Wheezes Gastrointestinal: Yes: Normal Bowel Sounds, Soft. No: Distention, Tenderness Musculoskeletal: Yes: WNL Extremities: Yes: WNL Edema: No Peripheral Pulses WNL: Yes Peripheral Pulses: Left Doralis Pedis: 2+, Right Dorsalis Pedis: 2+ Integumentary: Yes: WNL Neurological: Yes: Alert, Oriented Psychiatric: Yes: Alert, Oriented Labs: CBC, BMP 07/11/17 10:10 07/12/17 07:40 INR, PTT INR 1.22 (0.82-1.09) H 07/03/17 17:37 - ....Imaging Chest X-ray: Report Reviewed, Image Reviewed EKG: Report Reviewed, Image Reviewed Other: Report Reviewed, Image Reviewed (tele-NSR short runs NSVT 2, 3, 4, 5, 6 beats NSVT) Assessment/Plan 57 year old man with a complicated history including end-stage renal disease on dialysis, h/o endocarditis with mitral and tricuspid valve repair with recurrent moderate to severe regurgitation and pulmonary hypertension, atrial septal defect secondary to prior mitral valve surgery, TIA involving his right eye, recent admission [facility], now admitted with sob, fatigue, hypotension. SOB-volume overload due to chronic PHTN and diastolic CHF, large pleural effusion -volume status has overall improved, but found to have Large pleural effusion -Plan as per pulmonary is for repeat Cxray today to re-evaluate if pleural effusion does not show improvement will go for thoracentesis -ASA on hold for possible thoracentesis, resume tushar after procedure or if procedure not going to be done -Cont with volume removal with HD as long as BP tolerates -echo here shows normal LV function w/ severe PHTN- chronic. ASD: -ASA 81mg daily for possible prior occular TIA, to be resumed after thoracentesis -outpatient f/up for further management Afib-paroxsymal -has been NSR throughout admission -not on AC due to h/o bleeding and poor compliance with outpatient f/u -Cont ASA after thoracentesis NSVT- short runs, asymptomatic with normal LV systolic function -Toprol has been held each day for low BP, only received 1 dose on 07/07 -start Toprol 12.5mg daily if BP tolerates -outpatient f/up
--- NOTE | 2017-07-12 12:08 | PN ---
Progress Note, Physician History of Present Illness: PULMONARY ALERT,FEELING BETTER,SOB IMPROVING - Current Medication List Current Medications: Active Medications Acetaminophen (Tylenol -) 650 mg PO Q6H PRN PRN Reason: FEVER OR PAIN Last Admin: 07/12/17 00:56 Dose: 650 mg Albuterol/Ipratropium (Duoneb -) 1 amp NEB Q4H PRN PRN Reason: SHORTNESS OF BREATH Last Admin: 07/12/17 10:07 Dose: 1 amp Calcium Acetate (Phoslo -) 667 mg PO TIDCM [facility] Last Admin: 07/12/17 09:51 Dose: 667 mg Cyclobenzaprine HCl (Flexeril -) 10 mg PO HS [facility] Last Admin: 07/12/17 00:56 Dose: 10 mg Folic Acid (Folic Acid -) 1 mg PO DAILY [facility] Last Admin: 07/12/17 09:52 Dose: 1 mg Levothyroxine Sodium (Synthroid -) 25 mcg PO DAILY@0700 [facility] Last Admin: 07/12/17 06:24 Dose: 25 mcg Metoprolol Succinate (Toprol Xl -) 12.5 mg PO DAILY [facility] Last Admin: 07/12/17 09:53 Dose: Not Given Sevelamer Carbonate (Renvela -) 1,600 mg PO BID@0800,1730 [facility] Last Admin: 07/12/17 09:51 Dose: 1,600 mg Tamsulosin HCl (Flomax -) 0.4 mg PO DAILY@0830 [facility] Last Admin: 07/12/17 09:52 Dose: 0.4 mg - Objective Vital Signs: Vital Signs Temperature 98.1 F 07/12/17 09:54 Pulse Rate 87 07/12/17 10:08 Respiratory Rate 18 07/12/17 09:54 Blood Pressure 92/53 07/12/17 09:54 O2 Sat by Pulse Oximetry (%) 91 L 07/12/17 10:08 Constitutional: Yes: Well Nourished, Calm Eyes: Yes: WNL HENT: Yes: WNL Neck: Yes: WNL Cardiovascular: Yes: Regular Rate and Rhythm, S1, S2 Respiratory: Yes: Diminished Gastrointestinal: Yes: Normal Bowel Sounds, Soft Extremities: Yes: WNL Edema: No Labs: CBC, BMP 07/11/17 10:10 07/12/17 07:40 INR, PTT INR 1.22 (0.82-1.09) H 07/03/17 17:37 Problem List - Problems (1) ESRD (end stage renal disease) on dialysis Code(s): N18.6 - END STAGE RENAL DISEASE Z99.2 - DEPENDENCE ON RENAL DIALYSIS (2) Fluid overload Code(s): E87.70 - FLUID OVERLOAD, UNSPECIFIED Qualifiers: Hypervolemia type: unspecified Qualified Code(s): E87.70 - Fluid overload, unspecified; E87.70 - Fluid overload, unspecified (3) H/O mitral valve repair Code(s): Z98.890 - OTHER SPECIFIED POSTPROCEDURAL STATES (4) Hypotension Code(s): I95.9 - HYPOTENSION, UNSPECIFIED (5) SOB (shortness of breath) Code(s): R06.02 - SHORTNESS OF BREATH (6) ESRD on hemodialysis Code(s): N18.6 - END STAGE RENAL DISEASE Z99.2 - DEPENDENCE ON RENAL DIALYSIS (7) Acute dyspnea Code(s): R06.00 - DYSPNEA, UNSPECIFIED (8) Acute on chronic combined systolic and diastolic CHF, NYHA class 4 Code(s): I50.43 - ACUTE ON CHRONIC COMBINED SYSTOLIC AND DIASTOLIC HRT FAIL (9) Anemia in ESRD (end-stage renal disease) Code(s): N18.6 - END STAGE RENAL DISEASE D63.1 - ANEMIA IN CHRONIC KIDNEY DISEASE (10) Hypoxia Code(s): R09.02 - HYPOXEMIA (11) Pulmonary hypertension Code(s): I27.2 - OTHER SECONDARY PULMONARY HYPERTENSION * DO NOT USE * (12) COPD (chronic obstructive pulmonary disease) Code(s): J44.9 - CHRONIC OBSTRUCTIVE PULMONARY DISEASE, UNSPECIFIED (13) Acute on chronic respiratory failure with hypoxemia Code(s): J96.21 - ACUTE AND CHRONIC RESPIRATORY FAILURE WITH HYPOXIA Assessment/Plan MP ACUTE HYPOXEMIC RESPIRATORY FAILURE IMPROVED CHF PULMONARY HTN S/P MVR,TVR COPD ESRD ANEMIA HYPOTENSION PLAN HD PER RENAL O2 INHALED BRONCHODILATORS F/U CHEST X-RAY TODAY,IF NO CHANGE WILL THORACENTESIS WITH ULTRASOUND 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,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 Problem List - Problems (1) ESRD (end stage renal disease) on dialysis Code(s): N18.6 - END STAGE RENAL DISEASE Z99.2 - DEPENDENCE ON RENAL DIALYSIS (2) Fluid overload Code(s): E87.70 - FLUID OVERLOAD, UNSPECIFIED Qualifiers: Hypervolemia type: unspecified Qualified Code(s): E87.70 - Fluid overload, unspecified; E87.70 - Fluid overload, unspecified (3) H/O mitral valve repair Code(s): Z98.890 - OTHER SPECIFIED POSTPROCEDURAL STATES (4) Hypotension Code(s): I95.9 - HYPOTENSION, UNSPECIFIED (5) SOB (shortness of breath) Code(s): R06.02 - SHORTNESS OF BREATH (6) ESRD on hemodialysis Code(s): N18.6 - END STAGE RENAL DISEASE Z99.2 - DEPENDENCE ON RENAL DIALYSIS (7) Acute dyspnea Code(s): R06.00 - DYSPNEA, UNSPECIFIED (8) Acute on chronic combined systolic and diastolic CHF, NYHA class 4 Code(s): I50.43 - ACUTE ON CHRONIC COMBINED SYSTOLIC AND DIASTOLIC HRT FAIL (9) Anemia in ESRD (end-stage renal disease) Code(s): N18.6 - END STAGE RENAL DISEASE D63.1 - ANEMIA IN CHRONIC KIDNEY DISEASE (10) Hypoxia Code(s): R09.02 - HYPOXEMIA (11) Pulmonary hypertension Code(s): I27.2 - OTHER SECONDARY PULMONARY HYPERTENSION * DO NOT USE * (12) COPD (chronic obstructive pulmonary disease) Code(s): J44.9 - CHRONIC OBSTRUCTIVE PULMONARY DISEASE, UNSPECIFIED (13) Acute on chronic respiratory failure with hypoxemia Code(s): J96.21 - ACUTE AND CHRONIC RESPIRATORY FAILURE WITH HYPOXIA
--- NOTE | 2017-07-12 22:09 | PN ---
Progress Note, Physician - Current Medication List Current Medications: Active Medications Acetaminophen (Tylenol -) 650 mg PO Q6H PRN PRN Reason: FEVER OR PAIN Last Admin: 07/12/17 00:56 Dose: 650 mg Albuterol/Ipratropium (Duoneb -) 1 amp NEB Q4H PRN PRN Reason: SHORTNESS OF BREATH Last Admin: 07/12/17 10:07 Dose: 1 amp Calcium Acetate (Phoslo -) 667 mg PO TIDCM [facility] Last Admin: 07/12/17 17:34 Dose: 667 mg Cyclobenzaprine HCl (Flexeril -) 10 mg PO HS [facility] Last Admin: 07/12/17 00:56 Dose: 10 mg Folic Acid (Folic Acid -) 1 mg PO DAILY [facility] Last Admin: 07/12/17 09:52 Dose: 1 mg Levothyroxine Sodium (Synthroid -) 25 mcg PO DAILY@0700 [facility] Last Admin: 07/12/17 06:24 Dose: 25 mcg Metoprolol Succinate (Toprol Xl -) 12.5 mg PO DAILY [facility] Last Admin: 07/12/17 09:53 Dose: Not Given Sevelamer Carbonate (Renvela -) 1,600 mg PO BID@0800,1730 [facility] Last Admin: 07/12/17 17:34 Dose: 1,600 mg Tamsulosin HCl (Flomax -) 0.4 mg PO DAILY@0830 [facility] Last Admin: 07/12/17 09:52 Dose: 0.4 mg - Objective Vital Signs: Vital Signs Temperature 98.3 F 07/12/17 21:00 Pulse Rate 90 07/12/17 21:00 Respiratory Rate 18 07/12/17 21:00 Blood Pressure 106/63 07/12/17 21:00 O2 Sat by Pulse Oximetry (%) 94 L 07/12/17 21:00 Labs: CBC, BMP 07/11/17 10:10 07/12/17 07:40 INR, PTT INR 1.22 (0.82-1.09) H 07/03/17 17:37 Problem List - Problems (1) ESRD (end stage renal disease) on dialysis Code(s): N18.6 - END STAGE RENAL DISEASE Z99.2 - DEPENDENCE ON RENAL DIALYSIS (2) Hypotension Code(s): I95.9 - HYPOTENSION, UNSPECIFIED (3) SOB (shortness of breath) Code(s): R06.02 - SHORTNESS OF BREATH (4) Anemia in CKD (chronic kidney disease) Code(s): N18.9 - CHRONIC KIDNEY DISEASE, UNSPECIFIED D63.1 - ANEMIA IN CHRONIC KIDNEY DISEASE (5) CHF (congestive heart failure) Code(s): I50.9 - HEART FAILURE, UNSPECIFIED (6) Ascites Code(s): R18.8 - OTHER ASCITES (7) Chronic left shoulder pain Code(s): M25.512 - PAIN IN LEFT SHOULDER G89.29 - OTHER CHRONIC PAIN (8) Chronic systolic congestive heart failure Code(s): I50.22 - CHRONIC SYSTOLIC (CONGESTIVE) HEART FAILURE
[2017-07-13] MEDS: CYCLOBENZAPRINE HCL 10 MG TABLET (FP) PO SCH ×2 (00:51→23:24)
[2017-07-13] MEDS: ACETAMINOPHEN 325 MG TABLET (FP) PO PRN ×2 (00:51→23:24)
[2017-07-13] MEDS: ALBUTEROL SO4 2.5/IPRATROPIUM 0.5 INH SOL 3 ML VIAL.NEB. NEB PRN (04:46)
[2017-07-13] MEDS: LEVOTHYROXINE NA 25 MCG TABLET (FP) PO SCH (06:22)
[2017-07-13] MEDS: CALCIUM ACETATE 667 MG CAPSULE (FP) PO SCH ×3 (08:50→17:35)
[2017-07-13] MEDS: TAMSULOSIN HCL 0.4 MG CAP.ER.24H (FP) PO SCH (08:50)
[2017-07-13] MEDS: SEVELAMER CARBONATE 800 MG TAB (FP) PO SCH ×2 (08:50→17:35)
[2017-07-13] MEDS: FOLIC ACID 1 MG TABLET (FP) PO SCH (09:00)
[2017-07-13 09:02] LABS: ALBUMIN 1.8 g/dl (3.4-5.0); ANION GAP 9 (8-16); BILIRUBIN,TOTAL 0.5 mg/dL (0.2-1.0); CALCIUM 7.8 mg/dL (8.5-10.1); CO2 28 mmol/L (21-32); GLUCOSE,RANDOM 90 mg/dL (74-106); SGOT/AST 34 U/L (15-37); SGPT/ALT 21 U/L (12-78); TOT PROT 5.1 g/dl (6.4-8.2)
[2017-07-13 09:03] LABS: ALK PHOS 123 U/L (45-117)
[2017-07-13 10:38] LABS: MCH 30.6 pg (25.7-33.7); MCHC 31.7 g/dl (32.0-35.9); MEAN CELL VOLUME 96.5 fl (80-96); MEAN PLT VOLUME 9.8 fl (7.5-11.1); PLATELET COUNT 143 K/MM3 (134-434); WHITE BLOOD COUNT 4.6 K/mm3 (4.0-10.0)
[2017-07-13 11:06] LABS: ANION GAP 10 (8-16); CALCIUM 7.7 mg/dL (8.5-10.1); CO2 29 mmol/L (21-32); CREATININE 6.4 mg/dL (0.7-1.3); GLUCOSE,RANDOM 125 mg/dL (74-106); PHOSPHOROUS 3.2 mg/dL (2.5-4.9)
--- NOTE | 2017-07-13 11:14 | PN ---
Progress Note, Physician History of Present Illness: seen and examined today in nad. on UF currently. no new complaints. - Current Medication List Current Medications: Active Medications Acetaminophen (Tylenol -) 650 mg PO Q6H PRN PRN Reason: FEVER OR PAIN Last Admin: 07/13/17 00:51 Dose: 650 mg Albuterol/Ipratropium (Duoneb -) 1 amp NEB Q4H PRN PRN Reason: SHORTNESS OF BREATH Last Admin: 07/13/17 04:46 Dose: 1 amp Calcium Acetate (Phoslo -) 667 mg PO TIDCM [facility] Last Admin: 07/13/17 08:50 Dose: 667 mg Cyclobenzaprine HCl (Flexeril -) 10 mg PO HS [facility] Last Admin: 07/13/17 00:51 Dose: 10 mg Folic Acid (Folic Acid -) 1 mg PO DAILY [facility] Last Admin: 07/12/17 09:52 Dose: 1 mg Levothyroxine Sodium (Synthroid -) 25 mcg PO DAILY@0700 [facility] Last Admin: 07/13/17 06:22 Dose: 25 mcg Metoprolol Succinate (Toprol Xl -) 12.5 mg PO DAILY [facility] Last Admin: 07/12/17 09:53 Dose: Not Given Sevelamer Carbonate (Renvela -) 1,600 mg PO BID@0800,1730 [facility] Last Admin: 07/13/17 08:50 Dose: 1,600 mg Tamsulosin HCl (Flomax -) 0.4 mg PO DAILY@0830 [facility] Last Admin: 07/13/17 08:50 Dose: 0.4 mg - Objective Vital Signs: Vital Signs Temperature 98.1 F 07/13/17 09:35 Pulse Rate 87 07/13/17 10:40 Respiratory Rate 18 07/13/17 10:40 Blood Pressure 90/49 07/13/17 10:40 O2 Sat by Pulse Oximetry (%) 94 L 07/12/17 21:00 Constitutional: Yes: No Distress, Calm Eyes: Yes: Conjunctiva Clear, EOM Intact, PERRL HENT: Yes: Atraumatic, Normocephalic Neck: Yes: Supple, Trachea Midline Cardiovascular: Yes: Regular Rate and Rhythm, Murmur, S1, S2. No: Bradycardia, Tachycardia, Pulse Irregular, Bruit, JVD, Gallop, Rub, S3, S4, Varicosities Respiratory: Yes: Regular, Diminished. No: Rales, Rhonchi, SOB, Wheezes Gastrointestinal: Yes: Normal Bowel Sounds, Soft. No: Distention, Tenderness Edema: No Peripheral Pulses WNL: Yes Neurological: Yes: Alert, Oriented Psychiatric: Yes: Alert, Oriented Labs: CBC, BMP 07/13/17 09:35 07/13/17 09:35 INR, PTT INR 1.22 (0.82-1.09) H 07/03/17 17:37 - ....Imaging Chest X-ray: Report Reviewed, Image Reviewed EKG: Report Reviewed, Image Reviewed Other: Report Reviewed, Image Reviewed (tele-nsr, frequent pvcs, short nsvt up to 5 beats) Assessment/Plan 57 year old man with a complicated history including end-stage renal disease on dialysis, h/o endocarditis with mitral and tricuspid valve repair with recurrent moderate to severe regurgitation and pulmonary hypertension, atrial septal defect secondary to prior mitral valve surgery, TIA involving his right eye, recent admission [facility], now admitted with sob, fatigue, hypotension. SOB-volume overload due to chronic PHTN and diastolic CHF, large pleural effusion -volume status has overall improved, but found to have Large pleural effusion -Cxray yesterday showed persistent pleural effusion -pulm f/up for timing of thoracentesis -ASA on hold for possible thoracentesis, resume tushar after procedure -Cont with volume removal with HD/UF as long as BP tolerates -echo here shows normal LV function w/ severe PHTN- chronic. ASD: -ASA 81mg daily for possible prior occular TIA, to be resumed after thoracentesis -outpatient f/up for further management Afib-paroxsymal -has been NSR throughout admission -not on AC due to h/o bleeding and poor compliance with outpatient f/u -Cont ASA after thoracentesis NSVT- short runs, asymptomatic with normal LV systolic function -Toprol has been held each day for low BP, only received 1 dose on 07/07 -start Toprol 12.5mg daily if BP tolerates -outpatient f/up
--- NOTE | 2017-07-13 12:13 | PN ---
Progress Note, Physician History of Present Illness: PULMONARY ALERT,NAD,ON DIALYSIS,DYSPNEA IMPROVING - Current Medication List Current Medications: Active Medications Acetaminophen (Tylenol -) 650 mg PO Q6H PRN PRN Reason: FEVER OR PAIN Last Admin: 07/13/17 00:51 Dose: 650 mg Albuterol/Ipratropium (Duoneb -) 1 amp NEB Q4H PRN PRN Reason: SHORTNESS OF BREATH Last Admin: 07/13/17 04:46 Dose: 1 amp Calcium Acetate (Phoslo -) 667 mg PO TIDCM [facility] Last Admin: 07/13/17 08:50 Dose: 667 mg Cyclobenzaprine HCl (Flexeril -) 10 mg PO HS [facility] Last Admin: 07/13/17 00:51 Dose: 10 mg Folic Acid (Folic Acid -) 1 mg PO DAILY [facility] Last Admin: 07/12/17 09:52 Dose: 1 mg Levothyroxine Sodium (Synthroid -) 25 mcg PO DAILY@0700 [facility] Last Admin: 07/13/17 06:22 Dose: 25 mcg Metoprolol Succinate (Toprol Xl -) 12.5 mg PO DAILY [facility] Last Admin: 07/12/17 09:53 Dose: Not Given Sevelamer Carbonate (Renvela -) 1,600 mg PO BID@0800,1730 [facility] Last Admin: 07/13/17 08:50 Dose: 1,600 mg Tamsulosin HCl (Flomax -) 0.4 mg PO DAILY@0830 [facility] Last Admin: 07/13/17 08:50 Dose: 0.4 mg - Objective Vital Signs: Vital Signs Temperature 98.1 F 07/13/17 09:35 Pulse Rate 80 07/13/17 11:40 Respiratory Rate 18 07/13/17 11:40 Blood Pressure 95/61 07/13/17 11:40 O2 Sat by Pulse Oximetry (%) 94 L 07/12/17 21:00 Constitutional: Yes: Well Nourished, Calm Eyes: Yes: WNL HENT: Yes: WNL Neck: Yes: WNL Cardiovascular: Yes: Regular Rate and Rhythm, S1, S2 Respiratory: Yes: Diminished, Rales Gastrointestinal: Yes: Normal Bowel Sounds, Soft Extremities: Yes: WNL Edema: No Labs: CBC, BMP 07/13/17 09:35 07/13/17 09:35 INR, PTT INR 1.22 (0.82-1.09) H 07/03/17 17:37 - ....Imaging Chest X-ray: Report Reviewed, Image Reviewed (INCREASED CONGESTION ,BILATERAL EFFISIONS L>R) Problem List - Problems (1) ESRD (end stage renal disease) on dialysis Code(s): N18.6 - END STAGE RENAL DISEASE Z99.2 - DEPENDENCE ON RENAL DIALYSIS (2) Fluid overload Code(s): E87.70 - FLUID OVERLOAD, UNSPECIFIED Qualifiers: Hypervolemia type: unspecified Qualified Code(s): E87.70 - Fluid overload, unspecified; E87.70 - Fluid overload, unspecified (3) H/O mitral valve repair Code(s): Z98.890 - OTHER SPECIFIED POSTPROCEDURAL STATES (4) Hypotension Code(s): I95.9 - HYPOTENSION, UNSPECIFIED (5) SOB (shortness of breath) Code(s): R06.02 - SHORTNESS OF BREATH (6) ESRD on hemodialysis Code(s): N18.6 - END STAGE RENAL DISEASE Z99.2 - DEPENDENCE ON RENAL DIALYSIS (7) Acute dyspnea Code(s): R06.00 - DYSPNEA, UNSPECIFIED (8) Acute on chronic combined systolic and diastolic CHF, NYHA class 4 Code(s): I50.43 - ACUTE ON CHRONIC COMBINED SYSTOLIC AND DIASTOLIC HRT FAIL (9) Anemia in ESRD (end-stage renal disease) Code(s): N18.6 - END STAGE RENAL DISEASE D63.1 - ANEMIA IN CHRONIC KIDNEY DISEASE (10) Hypoxia Code(s): R09.02 - HYPOXEMIA (11) Pulmonary hypertension Code(s): I27.2 - OTHER SECONDARY PULMONARY HYPERTENSION * DO NOT USE * (12) COPD (chronic obstructive pulmonary disease) Code(s): J44.9 - CHRONIC OBSTRUCTIVE PULMONARY DISEASE, UNSPECIFIED (13) Acute on chronic respiratory failure with hypoxemia Code(s): J96.21 - ACUTE AND CHRONIC RESPIRATORY FAILURE WITH HYPOXIA Assessment/Plan MP ACUTE HYPOXEMIC RESPIRATORY FAILURE IMPROVED CHF PULMONARY HTN S/P MVR,TVR COPD ESRD ANEMIA HYPOTENSION PLAN HD PER RENAL O2 INHALED BRONCHODILATORS F/U CHEST X-RAY TODAY,IF NO CHANGE WILL THORACENTESIS WITH ULTRASOUND GUIDANCE IN AM MONITOR JOSEFINA,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 Problem List - Problems (1) ESRD (end stage renal disease) on dialysis Code(s): N18.6 - END STAGE RENAL DISEASE Z99.2 - DEPENDENCE ON RENAL DIALYSIS (2) Fluid overload Code(s): E87.70 - FLUID OVERLOAD, UNSPECIFIED Qualifiers: Hypervolemia type: unspecified Qualified Code(s): E87.70 - Fluid overload, unspecified; E87.70 - Fluid overload, unspecified (3) H/O mitral valve repair Code(s): Z98.890 - OTHER SPECIFIED POSTPROCEDURAL STATES (4) Hypotension Code(s): I95.9 - HYPOTENSION, UNSPECIFIED (5) SOB (shortness of breath) Code(s): R06.02 - SHORTNESS OF BREATH (6) ESRD on hemodialysis Code(s): N18.6 - END STAGE RENAL DISEASE Z99.2 - DEPENDENCE ON RENAL DIALYSIS (7) Acute dyspnea Code(s): R06.00 - DYSPNEA, UNSPECIFIED (8) Acute on chronic combined systolic and diastolic CHF, NYHA class 4 Code(s): I50.43 - ACUTE ON CHRONIC COMBINED SYSTOLIC AND DIASTOLIC HRT FAIL (9) Anemia in ESRD (end-stage renal disease) Code(s): N18.6 - END STAGE RENAL DISEASE D63.1 - ANEMIA IN CHRONIC KIDNEY DISEASE (10) Hypoxia Code(s): R09.02 - HYPOXEMIA (11) Pulmonary hypertension Code(s): I27.2 - OTHER SECONDARY PULMONARY HYPERTENSION * DO NOT USE * (12) COPD (chronic obstructive pulmonary disease) Code(s): J44.9 - CHRONIC OBSTRUCTIVE PULMONARY DISEASE, UNSPECIFIED (13) Acute on chronic respiratory failure with hypoxemia Code(s): J96.21 - ACUTE AND CHRONIC RESPIRATORY FAILURE WITH HYPOXIA
[2017-07-13] MEDS: METOPROLOL SUCCINATE 25 MG TAB.SR.24H (FP) PO SCH (12:18)
--- NOTE | 2017-07-13 13:49 | PN ---
Progress Note (short form) - Note Progress Note: Renal follow up for ESRD on HD Pt seen and examined during isolated UF BP low but stable UF goal is 1.5L AVF with good flow pt without complaints Vital Signs Temperature 98.1 F 07/13/17 09:35 Pulse Rate 83 07/13/17 12:12 Respiratory Rate 18 07/13/17 12:12 Blood Pressure 109/61 07/13/17 12:12 O2 Sat by Pulse Oximetry (%) 94 L 07/12/17 21:00 Intake & Output 07/11/17 07/12/17 07/12/17 07/13/17 00:59 00:59 23:59 23:59 Intake Total 830 Balance 830 Weight NAD awake and alert RRR + murmur Dec BS at lung bases no Le edema CBC, BMP 07/13/17 09:35 07/13/17 09:35 Current Medications Acetaminophen (Tylenol -) 650 mg PO Q6H PRN PRN Reason: FEVER OR PAIN Last Admin: 07/13/17 00:51 Dose: 650 mg Albuterol/Ipratropium (Duoneb -) 1 amp NEB Q4H PRN PRN Reason: SHORTNESS OF BREATH Last Admin: 07/13/17 04:46 Dose: 1 amp Calcium Acetate (Phoslo -) 667 mg PO TIDCM [facility] Last Admin: 07/13/17 12:52 Dose: Not Given Cyclobenzaprine HCl (Flexeril -) 10 mg PO HS [facility] Last Admin: 07/13/17 00:51 Dose: 10 mg Folic Acid (Folic Acid -) 1 mg PO DAILY [facility] Last Admin: 07/13/17 09:00 Dose: 1 mg Levothyroxine Sodium (Synthroid -) 25 mcg PO DAILY@0700 [facility] Last Admin: 07/13/17 06:22 Dose: 25 mcg Metoprolol Succinate (Toprol Xl -) 12.5 mg PO DAILY [facility] Last Admin: 07/13/17 12:18 Dose: Not Given Sevelamer Carbonate (Renvela -) 1,600 mg PO BID@0800,1730 [facility] Last Admin: 07/13/17 08:50 Dose: 1,600 mg Tamsulosin HCl (Flomax -) 0.4 mg PO DAILY@0830 [facility] Last Admin: 07/13/17 08:50 Dose: 0.4 mg A/P 57 year old Gentleman with PMhx of ESRD on HD (TTS), CHF, Hx of infective endocarditis s/p MVR/TVR s/p recent admission at [facility] and at [facility] presents from PMD office with SOB, Hypoxia and low BP and admitted with CHF/Volume overload. #ESRD with CHF/Volume overload in setting of valvular heart disease tolerated UF today for full HD treatment tomorrow Fluid and salt restriction #Pleural effusions may need thoracentesis tomorrow as per pulmonary to follow up on CXR this afternoon #CKD reltaed Anemia will continue high dose Epogen and Iron load with HD Abdirashid Guthrie DO
--- NOTE | 2017-07-13 23:15 | PN ---
Progress Note, Physician History of Present Illness: No new complaints - Current Medication List Current Medications: Active Medications Acetaminophen (Tylenol -) 650 mg PO Q6H PRN PRN Reason: FEVER OR PAIN Last Admin: 07/13/17 00:51 Dose: 650 mg Albuterol/Ipratropium (Duoneb -) 1 amp NEB Q4H PRN PRN Reason: SHORTNESS OF BREATH Last Admin: 07/13/17 04:46 Dose: 1 amp Calcium Acetate (Phoslo -) 667 mg PO TIDCM [facility] Last Admin: 07/13/17 17:35 Dose: 667 mg Cyclobenzaprine HCl (Flexeril -) 10 mg PO HS [facility] Last Admin: 07/13/17 00:51 Dose: 10 mg Epoetin Cornelio (Procrit -) 20,000 unit IVPUSH ONCE ONE Stop: 07/14/17 06:01 Folic Acid (Folic Acid -) 1 mg PO DAILY [facility] Last Admin: 07/13/17 09:00 Dose: 1 mg Iron Sucrose 100 mg/ Sodium (Chloride) 100 mls @ 200 mls/hr IVPB ONCE ONE Stop: 07/14/17 06:29 Levothyroxine Sodium (Synthroid -) 25 mcg PO DAILY@0700 [facility] Last Admin: 07/13/17 06:22 Dose: 25 mcg Metoprolol Succinate (Toprol Xl -) 12.5 mg PO DAILY [facility] Last Admin: 07/13/17 12:18 Dose: Not Given Sevelamer Carbonate (Renvela -) 1,600 mg PO BID@0800,1730 [facility] Last Admin: 07/13/17 17:35 Dose: 1,600 mg Tamsulosin HCl (Flomax -) 0.4 mg PO DAILY@0830 [facility] Last Admin: 07/13/17 08:50 Dose: 0.4 mg - Objective Vital Signs: Vital Signs Temperature 98.2 F 07/13/17 21:39 Pulse Rate 82 07/13/17 21:51 Respiratory Rate 18 07/13/17 21:39 Blood Pressure 111/77 07/13/17 21:39 O2 Sat by Pulse Oximetry (%) 95 07/13/17 22:04 Constitutional: Yes: No Distress HENT: Yes: WNL Neck: Yes: WNL, Supple Cardiovascular: Yes: WNL, Regular Rate and Rhythm Respiratory: Yes: WNL, Regular, CTA Bilaterally Gastrointestinal: Yes: WNL, Normal Bowel Sounds, Soft Labs: CBC, BMP 07/13/17 09:35 07/13/17 09:35 INR, PTT INR 1.22 (0.82-1.09) H 07/03/17 17:37 Problem List - Problems (1) Ascites Code(s): R18.8 - OTHER ASCITES (2) Chronic systolic congestive heart failure Code(s): I50.22 - CHRONIC SYSTOLIC (CONGESTIVE) HEART FAILURE (3) Chronic left shoulder pain Code(s): M25.512 - PAIN IN LEFT SHOULDER; G89.29 - OTHER CHRONIC PAIN (4) SOB (shortness of breath) Code(s): R06.02 - SHORTNESS OF BREATH (5) CHF (congestive heart failure) Code(s): I50.9 - HEART FAILURE, UNSPECIFIED (6) Anemia in CKD (chronic kidney disease) Code(s): N18.9 - CHRONIC KIDNEY DISEASE, UNSPECIFIED; D63.1 - ANEMIA IN CHRONIC KIDNEY DISEASE (7) ESRD (end stage renal disease) on dialysis Code(s): N18.6 - END STAGE RENAL DISEASE; Z99.2 - DEPENDENCE ON RENAL DIALYSIS (8) Hypotension Code(s): I95.9 - HYPOTENSION, UNSPECIFIED
[2017-07-14] MEDS ORDERED: EPOETIN ALFA 20,000 UNIT/1 ML VIAL IVPUSH ONE (06:00)
[2017-07-14] MEDS: LEVOTHYROXINE NA 25 MCG TABLET (FP) PO SCH (06:40)
[2017-07-14] MEDS: ALBUTEROL SO4 2.5/IPRATROPIUM 0.5 INH SOL 3 ML VIAL.NEB. NEB PRN ×2 (08:50→21:45)
[2017-07-14] MEDS: TAMSULOSIN HCL 0.4 MG CAP.ER.24H (FP) PO SCH (09:06)
[2017-07-14] MEDS: METOPROLOL SUCCINATE 25 MG TAB.SR.24H (FP) PO SCH (09:07)
[2017-07-14] MEDS: FOLIC ACID 1 MG TABLET (FP) PO SCH (09:07)
[2017-07-14] MEDS: CALCIUM ACETATE 667 MG CAPSULE (FP) PO SCH ×3 (09:07→17:45)
[2017-07-14] MEDS: SEVELAMER CARBONATE 800 MG TAB (FP) PO SCH ×2 (09:07→17:46)
--- NOTE | 2017-07-14 09:33 | PN ---
Progress Note, Physician Chief Complaint: no distress TELE: NSR with occasional short runs NSVT (max 3 beats) - Current Medication List Current Medications: Active Medications Acetaminophen (Tylenol -) 650 mg PO Q6H PRN PRN Reason: FEVER OR PAIN Last Admin: 07/13/17 23:24 Dose: 650 mg Albuterol/Ipratropium (Duoneb -) 1 amp NEB Q4H PRN PRN Reason: SHORTNESS OF BREATH Last Admin: 07/14/17 08:50 Dose: 1 amp Calcium Acetate (Phoslo -) 667 mg PO TIDCM [facility] Last Admin: 07/14/17 09:07 Dose: 667 mg Cyclobenzaprine HCl (Flexeril -) 10 mg PO HS [facility] Last Admin: 07/13/17 23:24 Dose: 10 mg Epoetin Cornelio (Procrit -) 20,000 unit IVPUSH ONCE ONE Stop: 07/14/17 06:01 Folic Acid (Folic Acid -) 1 mg PO DAILY [facility] Last Admin: 07/14/17 09:07 Dose: 1 mg Iron Sucrose 100 mg/ Sodium (Chloride) 100 mls @ 200 mls/hr IVPB ONCE ONE Stop: 07/14/17 06:29 Levothyroxine Sodium (Synthroid -) 25 mcg PO DAILY@0700 [facility] Last Admin: 07/14/17 06:40 Dose: 25 mcg Metoprolol Succinate (Toprol Xl -) 12.5 mg PO DAILY [facility] Last Admin: 07/14/17 09:07 Dose: 12.5 mg Sevelamer Carbonate (Renvela -) 1,600 mg PO BID@0800,1730 [facility] Last Admin: 07/14/17 09:07 Dose: 1,600 mg Tamsulosin HCl (Flomax -) 0.4 mg PO DAILY@0830 [facility] Last Admin: 07/14/17 09:06 Dose: 0.4 mg - Objective Vital Signs: Vital Signs Temperature 98.2 F 07/13/17 21:39 Pulse Rate 86 07/14/17 08:50 Respiratory Rate 18 07/13/17 21:39 Blood Pressure 111/77 07/13/17 21:39 O2 Sat by Pulse Oximetry (%) 95 07/14/17 08:50 Constitutional: Yes: No Distress Cardiovascular: Yes: Regular Rate and Rhythm, Murmur (2/6 WYATT RSB chronic) Respiratory: Yes: Other (decreased breath sounds left base) Gastrointestinal: Yes: Soft Edema: No Neurological: Yes: Alert Labs: CBC, BMP 07/13/17 09:35 07/13/17 09:35 INR, PTT INR 1.22 (0.82-1.09) H 07/03/17 17:37 Laboratory Tests 07/05/17 07/06/17 07/06/17 12:50 05:38 05:38 WBC 4.1 Hgb 9.2 L Plt Count 170 Sodium 142 Potassium 4.2 BUN 24 H Creatinine 7.6 H* Calcium 7.8 L Phosphorus 3.2 Magnesium 2.2 Stool Occult Blood Negative 07/13/17 07/13/17 09:35 09:35 WBC 4.6 Hgb 8.7 L Plt Count 143 Sodium 141 Potassium 4.5 BUN Creatinine 6.4 H Calcium Phosphorus 3.2 Magnesium Stool Occult Blood - ....Imaging X-ray: Report Reviewed EKG: Report Reviewed Assessment/Plan Assessment/Plan 57 year old man with a complicated history including end-stage renal disease on dialysis, h/o endocarditis with mitral and tricuspid valve repair with recurrent moderate to severe regurgitation and pulmonary hypertension, atrial septal defect secondary to prior mitral valve surgery, TIA involving his right eye, recent admission [facility], now admitted with sob, fatigue, hypotension. SOB-volume overload due to chronic PHTN and diastolic CHF, large pleural effusion -volume status has overall improved, but found to have Large pleural effusion -Cxray shows persistent and worsening pleural effusion -thoracentesis planned for today -ASA on hold, resume ALAYNA after procedure -Cont with volume removal with HD/UF as long as BP tolerates -echo here shows normal LV function w/ severe PHTN- chronic. ASD: -ASA 81mg daily for possible prior occular TIA, to be resumed after thoracentesis -outpatient f/up for further management Afib-paroxsymal -has been NSR throughout admission -not on AC due to h/o bleeding and poor compliance with outpatient f/u -Cont ASA after thoracentesis NSVT- short runs, asymptomatic with normal LV systolic function -Toprol 12.5mg daily.
[2017-07-14] MEDS ORDERED: IRON SUCROSE INJECTION 100 MG in SODIUM CHLORIDE 95 ML IVPB ONE (10:00)
[2017-07-14] MEDS: ACETAMINOPHEN 325 MG TABLET (FP) PO PRN ×2 (10:50→21:17)
[2017-07-14] MEDS ORDERED: HYDROmorphone HCL CARPU-JECT 1 MG/1 ML DISP.SYRIN IVPB ONE (10:56)
--- NOTE | 2017-07-14 11:55 | PN ---
Progress Note, Physician History of Present Illness: PULMONARY ALERT,LESS DYSPNEIC,-CP. PT S/P THORACENTESIS TOLERATED PROCEDURE WELL - Current Medication List Current Medications: Active Medications Acetaminophen (Tylenol -) 650 mg PO Q6H PRN PRN Reason: FEVER OR PAIN Last Admin: 07/14/17 10:50 Dose: 650 mg Albuterol/Ipratropium (Duoneb -) 1 amp NEB Q4H PRN PRN Reason: SHORTNESS OF BREATH Last Admin: 07/14/17 08:50 Dose: 1 amp Calcium Acetate (Phoslo -) 667 mg PO TIDCM [facility] Last Admin: 07/14/17 09:07 Dose: 667 mg Cyclobenzaprine HCl (Flexeril -) 10 mg PO HS [facility] Last Admin: 07/13/17 23:24 Dose: 10 mg Folic Acid (Folic Acid -) 1 mg PO DAILY [facility] Last Admin: 07/14/17 09:07 Dose: 1 mg Levothyroxine Sodium (Synthroid -) 25 mcg PO DAILY@0700 [facility] Last Admin: 07/14/17 06:40 Dose: 25 mcg Metoprolol Succinate (Toprol Xl -) 12.5 mg PO DAILY [facility] Last Admin: 07/14/17 09:07 Dose: 12.5 mg Sevelamer Carbonate (Renvela -) 1,600 mg PO BID@0800,1730 [facility] Last Admin: 07/14/17 09:07 Dose: 1,600 mg Tamsulosin HCl (Flomax -) 0.4 mg PO DAILY@0830 [facility] Last Admin: 07/14/17 09:06 Dose: 0.4 mg - Objective Vital Signs: Vital Signs Temperature 98.2 F 07/13/17 21:39 Pulse Rate 86 07/14/17 08:50 Respiratory Rate 18 07/13/17 21:39 Blood Pressure 111/77 07/13/17 21:39 O2 Sat by Pulse Oximetry (%) 95 07/14/17 08:50 Constitutional: Yes: Well Nourished, Calm Eyes: Yes: WNL HENT: Yes: WNL Neck: Yes: WNL Cardiovascular: Yes: Regular Rate and Rhythm, S1, S2 Respiratory: Yes: Diminished Gastrointestinal: Yes: Normal Bowel Sounds, Soft Extremities: Yes: WNL Edema: No Labs: CBC, BMP Problem List - Problems (1) ESRD (end stage renal disease) on dialysis Code(s): N18.6 - END STAGE RENAL DISEASE Z99.2 - DEPENDENCE ON RENAL DIALYSIS (2) Fluid overload Code(s): E87.70 - FLUID OVERLOAD, UNSPECIFIED Qualifiers: Hypervolemia type: unspecified Qualified Code(s): E87.70 - Fluid overload, unspecified; E87.70 - Fluid overload, unspecified (3) H/O mitral valve repair Code(s): Z98.890 - OTHER SPECIFIED POSTPROCEDURAL STATES (4) Hypotension Code(s): I95.9 - HYPOTENSION, UNSPECIFIED (5) SOB (shortness of breath) Code(s): R06.02 - SHORTNESS OF BREATH (6) ESRD on hemodialysis Code(s): N18.6 - END STAGE RENAL DISEASE Z99.2 - DEPENDENCE ON RENAL DIALYSIS (7) Acute dyspnea Code(s): R06.00 - DYSPNEA, UNSPECIFIED (8) Acute on chronic combined systolic and diastolic CHF, NYHA class 4 Code(s): I50.43 - ACUTE ON CHRONIC COMBINED SYSTOLIC AND DIASTOLIC HRT FAIL (9) Anemia in ESRD (end-stage renal disease) Code(s): N18.6 - END STAGE RENAL DISEASE D63.1 - ANEMIA IN CHRONIC KIDNEY DISEASE (10) Hypoxia Code(s): R09.02 - HYPOXEMIA (11) Pulmonary hypertension Code(s): I27.2 - OTHER SECONDARY PULMONARY HYPERTENSION * DO NOT USE * (12) COPD (chronic obstructive pulmonary disease) Code(s): J44.9 - CHRONIC OBSTRUCTIVE PULMONARY DISEASE, UNSPECIFIED (13) Acute on chronic respiratory failure with hypoxemia Code(s): J96.21 - ACUTE AND CHRONIC RESPIRATORY FAILURE WITH HYPOXIA Assessment/Plan MP ACUTE HYPOXEMIC RESPIRATORY FAILURE IMPROVED CHF PULMONARY HTN S/P MVR,TVR COPD ESRD ANEMIA HYPOTENSION PLAN HD PER RENAL O2 INHALED BRONCHODILATORS CHECK PLEURAL LUID CHEMISTRIES MONITOR JOSEFINA,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 Problem List - Problems (1) ESRD (end stage renal disease) on dialysis Code(s): N18.6 - END STAGE RENAL DISEASE Z99.2 - DEPENDENCE ON RENAL DIALYSIS (2) Fluid overload Code(s): E87.70 - FLUID OVERLOAD, UNSPECIFIED Qualifiers: Hypervolemia type: unspecified Qualified Code(s): E87.70 - Fluid overload, unspecified; E87.70 - Fluid overload, unspecified (3) H/O mitral valve repair Code(s): Z98.890 - OTHER SPECIFIED POSTPROCEDURAL STATES (4) Hypotension Code(s): I95.9 - HYPOTENSION, UNSPECIFIED (5) SOB (shortness of breath) Code(s): R06.02 - SHORTNESS OF BREATH (6) ESRD on hemodialysis Code(s): N18.6 - END STAGE RENAL DISEASE Z99.2 - DEPENDENCE ON RENAL DIALYSIS (7) Acute dyspnea Code(s): R06.00 - DYSPNEA, UNSPECIFIED (8) Acute on chronic combined systolic and diastolic CHF, NYHA class 4 Code(s): I50.43 - ACUTE ON CHRONIC COMBINED SYSTOLIC AND DIASTOLIC HRT FAIL (9) Anemia in ESRD (end-stage renal disease) Code(s): N18.6 - END STAGE RENAL DISEASE D63.1 - ANEMIA IN CHRONIC KIDNEY DISEASE (10) Hypoxia Code(s): R09.02 - HYPOXEMIA (11) Pulmonary hypertension Code(s): I27.2 - OTHER SECONDARY PULMONARY HYPERTENSION * DO NOT USE * (12) COPD (chronic obstructive pulmonary disease) Code(s): J44.9 - CHRONIC OBSTRUCTIVE PULMONARY DISEASE, UNSPECIFIED (13) Acute on chronic respiratory failure with hypoxemia Code(s): J96.21 - ACUTE AND CHRONIC RESPIRATORY FAILURE WITH HYPOXIA
[2017-07-14 12:29] LABS: PLEURAL FLUID APPEARANCE CLEAR; PLEURAL FLUID COLOR STRAW; PLEURAL FLUID SOURCE LEFT PLEURAL
[2017-07-14 12:46] LABS: GLUCOSE,PLEURAL FLUID 107.785; TOTAL PROTEIN,PLEURAL FLUID 0.588
[2017-07-14 15:25] LABS: MCHC 31.8 g/dl (32.0-35.9); MEAN CELL VOLUME 97.4 fl (80-96); MEAN PLT VOLUME 10.3 fl (7.5-11.1); PLATELET COUNT 155 K/MM3 (134-434); RDW 18.7 % (11.9-15.9); WHITE BLOOD COUNT 5.8 K/mm3 (4.0-10.0)
[2017-07-14 15:38] LABS: ALBUMIN 1.7 g/dl (3.4-5.0); ANION GAP 9 (8-16); BILIRUBIN,TOTAL 0.3 mg/dL (0.2-1.0); CALCIUM 7.9 mg/dL (8.5-10.1); CO2 29 mmol/L (21-32); CREATININE 7.1 mg/dL (0.7-1.3); GLUCOSE,RANDOM 99 mg/dL (74-106); PHOSPHOROUS 3.6 mg/dL (2.5-4.9); SGOT/AST 22 U/L (15-37); SGPT/ALT 18 U/L (12-78)
[2017-07-14 15:39] LABS: ALK PHOS 123 U/L (45-117); TOT PROT 4.9 g/dl (6.4-8.2)
--- NOTE | 2017-07-14 15:52 | PN ---
Progress Note (short form) - Note Progress Note: Renal follow up for ESRD on HD Pt seen and examined at the bedside awake and alert s/p thoracentesis this am SOB is improved for dialysis today Vital Signs Temperature 98.8 F 07/14/17 14:30 Pulse Rate 85 07/14/17 15:05 Respiratory Rate 18 07/14/17 15:05 Blood Pressure 97/61 07/14/17 15:05 O2 Sat by Pulse Oximetry (%) 97 07/14/17 10:00 Intake & Output 07/12/17 07/12/17 07/13/17 07/14/17 00:59 23:59 23:59 23:59 Intake Total 1130 745 Balance 1130 745 Weight NAD awake and alert RRR + murmur Dec BS at lung bases no Le edema CBC, BMP 07/14/17 14:30 07/14/17 14:30 Current Medications Acetaminophen (Tylenol -) 650 mg PO Q6H PRN PRN Reason: FEVER OR PAIN Last Admin: 07/14/17 10:50 Dose: 650 mg Albuterol/Ipratropium (Duoneb -) 1 amp NEB Q4H PRN PRN Reason: SHORTNESS OF BREATH Last Admin: 07/14/17 08:50 Dose: 1 amp Calcium Acetate (Phoslo -) 667 mg PO TIDCM [facility] Last Admin: 07/14/17 12:05 Dose: 667 mg Cyclobenzaprine HCl (Flexeril -) 10 mg PO HS [facility] Last Admin: 07/13/17 23:24 Dose: 10 mg Folic Acid (Folic Acid -) 1 mg PO DAILY [facility] Last Admin: 07/14/17 09:07 Dose: 1 mg Levothyroxine Sodium (Synthroid -) 25 mcg PO DAILY@0700 [facility] Last Admin: 07/14/17 06:40 Dose: 25 mcg Metoprolol Succinate (Toprol Xl -) 12.5 mg PO DAILY [facility] Last Admin: 07/14/17 09:07 Dose: 12.5 mg Sevelamer Carbonate (Renvela -) 1,600 mg PO BID@0800,1730 [facility] Last Admin: 07/14/17 09:07 Dose: 1,600 mg Tamsulosin HCl (Flomax -) 0.4 mg PO DAILY@0830 [facility] Last Admin: 11/07/17 09:06 Dose: 0.4 mg A/P 57 year old Gentleman with PMhx of ESRD on HD (TTS), CHF, Hx of infective endocarditis s/p MVR/TVR s/p recent admission at [facility] and at [facility] presents from PMD office with SOB, Hypoxia and low BP and admitted with CHF/Volume overload. #ESRD with CHF/Volume overload in setting of valvular heart disease for HD today with UF as tolerated goal UF is 2.3-3L Continue Renal diet with salt and fluid restriction #Pleural effusions s/p thoracentesis #CKD reltaed Anemia will continue high dose Epogen and Iron load with HD Abdirashid Guthrie DO
[2017-07-14 17:33] LABS: PLEURAL FLUID LYMPHOCYTES 80 %; PLEURAL FLUID NEUTROPHIL 13 %
[2017-07-14] MEDS ORDERED: KETOROLAC TROMETHAMINE 30 MG/1 ML VIAL IVPUSH ONE (21:30)
--- NOTE | 2017-07-14 22:40 | PN ---
Progress Note, Physician History of Present Illness: Pt with pain at site of thoracentesis - Current Medication List Current Medications: Active Medications Acetaminophen (Tylenol -) 650 mg PO Q6H PRN PRN Reason: FEVER OR PAIN Last Admin: 07/14/17 21:17 Dose: 650 mg Albuterol/Ipratropium (Duoneb -) 1 amp NEB Q4H PRN PRN Reason: SHORTNESS OF BREATH Last Admin: 07/14/17 08:50 Dose: 1 amp Calcium Acetate (Phoslo -) 667 mg PO TIDCM [facility] Last Admin: 07/14/17 17:45 Dose: 667 mg Cyclobenzaprine HCl (Flexeril -) 10 mg PO HS [facility] Last Admin: 07/13/17 23:24 Dose: 10 mg Folic Acid (Folic Acid -) 1 mg PO DAILY [facility] Last Admin: 07/14/17 09:07 Dose: 1 mg Levothyroxine Sodium (Synthroid -) 25 mcg PO DAILY@0700 [facility] Last Admin: 07/14/17 06:40 Dose: 25 mcg Metoprolol Succinate (Toprol Xl -) 12.5 mg PO DAILY [facility] Last Admin: 07/14/17 09:07 Dose: 12.5 mg Sevelamer Carbonate (Renvela -) 1,600 mg PO BID@0800,1730 [facility] Last Admin: 07/14/17 17:46 Dose: 1,600 mg Tamsulosin HCl (Flomax -) 0.4 mg PO DAILY@0830 [facility] Last Admin: 07/14/17 09:06 Dose: 0.4 mg - Objective Vital Signs: Vital Signs Temperature 97.8 F 07/14/17 18:00 Pulse Rate 80 07/14/17 18:00 Respiratory Rate 18 07/14/17 18:00 Blood Pressure 100/51 07/14/17 18:00 O2 Sat by Pulse Oximetry (%) 97 07/14/17 10:00 Constitutional: Yes: No Distress HENT: Yes: WNL Neck: Yes: WNL, Supple Cardiovascular: Yes: WNL, Regular Rate and Rhythm Respiratory: Yes: WNL, Regular, CTA Bilaterally Gastrointestinal: Yes: WNL, Normal Bowel Sounds, Soft Labs: CBC, BMP 07/14/17 14:30 07/14/17 14:30 INR, PTT INR 1.22 (0.82-1.09) H 07/03/17 17:37 Problem List - Problems (1) Ascites Code(s): R18.8 - OTHER ASCITES (2) Chronic systolic congestive heart failure Code(s): I50.22 - CHRONIC SYSTOLIC (CONGESTIVE) HEART FAILURE (3) Chronic left shoulder pain Code(s): M25.512 - PAIN IN LEFT SHOULDER; G89.29 - OTHER CHRONIC PAIN (4) SOB (shortness of breath) Code(s): R06.02 - SHORTNESS OF BREATH (5) CHF (congestive heart failure) Code(s): I50.9 - HEART FAILURE, UNSPECIFIED (6) Anemia in CKD (chronic kidney disease) Code(s): N18.9 - CHRONIC KIDNEY DISEASE, UNSPECIFIED; D63.1 - ANEMIA IN CHRONIC KIDNEY DISEASE (7) ESRD (end stage renal disease) on dialysis Code(s): N18.6 - END STAGE RENAL DISEASE; Z99.2 - DEPENDENCE ON RENAL DIALYSIS (8) Hypotension Code(s): I95.9 - HYPOTENSION, UNSPECIFIED
[2017-07-15] MEDS: CYCLOBENZAPRINE HCL 10 MG TABLET (FP) PO SCH (00:22)
[2017-07-15] MEDS ORDERED: KETOROLAC TROMETHAMINE 30 MG/1 ML VIAL IVPUSH ONE (00:30)
--- NOTE | 2017-07-15 09:43 | PN ---
Progress Note, Physician Chief Complaint: feels better after thoracentesis TELE: nsr, nsvt 3 beats. - Current Medication List Current Medications: Active Medications Acetaminophen (Tylenol -) 650 mg PO Q6H PRN PRN Reason: FEVER OR PAIN Last Admin: 07/14/17 21:17 Dose: 650 mg Albuterol/Ipratropium (Duoneb -) 1 amp NEB Q4H PRN PRN Reason: SHORTNESS OF BREATH Last Admin: 07/14/17 21:45 Dose: 1 amp Calcium Acetate (Phoslo -) 667 mg PO TIDCM [facility] Last Admin: 07/14/17 17:45 Dose: 667 mg Cyclobenzaprine HCl (Flexeril -) 10 mg PO HS [facility] Last Admin: 07/15/17 00:22 Dose: 10 mg Folic Acid (Folic Acid -) 1 mg PO DAILY [facility] Last Admin: 07/14/17 09:07 Dose: 1 mg Levothyroxine Sodium (Synthroid -) 25 mcg PO DAILY@0700 [facility] Last Admin: 07/14/17 06:40 Dose: 25 mcg Metoprolol Succinate (Toprol Xl -) 12.5 mg PO DAILY [facility] Last Admin: 07/14/17 09:07 Dose: 12.5 mg Sevelamer Carbonate (Renvela -) 1,600 mg PO BID@0800,1730 [facility] Last Admin: 07/14/17 17:46 Dose: 1,600 mg Tamsulosin HCl (Flomax -) 0.4 mg PO DAILY@0830 [facility] Last Admin: 07/14/17 09:06 Dose: 0.4 mg - Objective Vital Signs: Vital Signs Temperature 97.9 F 07/15/17 02:11 Pulse Rate 83 07/15/17 02:11 Respiratory Rate 18 07/15/17 02:11 Blood Pressure 94/56 07/15/17 02:11 O2 Sat by Pulse Oximetry (%) 100 07/14/17 22:00 Constitutional: Yes: Calm Cardiovascular: Yes: Regular Rate and Rhythm Respiratory: Yes: Other (decreased breath sounds b/l) Gastrointestinal: Yes: Soft Edema: No Neurological: Yes: Alert Labs: CBC, BMP 07/14/17 14:30 07/14/17 14:30 INR, PTT INR 1.22 (0.82-1.09) H 07/03/17 17:37 Laboratory Tests 07/14/17 07/14/17 14:30 14:30 WBC 5.8 Hgb 9.2 L Plt Count 155 Sodium 140 Potassium 5.1 Creatinine 7.1 H - ....Imaging EKG: Image Reviewed Assessment/Plan Assessment/Plan 57 year old man with a complicated history including end-stage renal disease on dialysis, 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 SOB-volume overload due to chronic PHTN and diastolic CHF, large pleural effusion -s/p thpracentesis -resume asa when feasible -Cont with volume removal with HD/UF as long as BP tolerates -echo here shows normal LV function w/ severe PHTN- chronic. ASD: -ASA 81mg daily for possible prior occular TIA, to be resumed -outpatient f/up for further management Afib-paroxsymal -has been NSR throughout admission -not on AC due to h/o bleeding and poor compliance with outpatient f/u -Cont ASA after thoracentesis NSVT- short runs, asymptomatic with normal LV systolic function -Toprol 12.5mg daily.
[2017-07-15] MEDS: ALBUTEROL SO4 2.5/IPRATROPIUM 0.5 INH SOL 3 ML VIAL.NEB. NEB PRN ×2 (10:00→22:03)
[2017-07-15] MEDS: TAMSULOSIN HCL 0.4 MG CAP.ER.24H (FP) PO SCH (10:43)
[2017-07-15] MEDS: CALCIUM ACETATE 667 MG CAPSULE (FP) PO SCH ×3 (10:43→18:15)
[2017-07-15] MEDS: SEVELAMER CARBONATE 800 MG TAB (FP) PO SCH ×2 (10:44→18:16)
[2017-07-15] MEDS: METOPROLOL SUCCINATE 25 MG TAB.SR.24H (FP) PO SCH (10:45)
[2017-07-15] MEDS: FOLIC ACID 1 MG TABLET (FP) PO SCH (10:45)
--- NOTE | 2017-07-15 11:31 | PN ---
Progress Note, Physician History of Present Illness: PULMONARY ALERT,FEELING BETTER,-RESP DISTRESS. PLEURAL FLUID C/W TRANSUDATE - Current Medication List Current Medications: Active Medications Acetaminophen (Tylenol -) 650 mg PO Q6H PRN PRN Reason: FEVER OR PAIN Last Admin: 07/14/17 21:17 Dose: 650 mg Albuterol/Ipratropium (Duoneb -) 1 amp NEB Q4H PRN PRN Reason: SHORTNESS OF BREATH Last Admin: 07/15/17 10:00 Dose: 1 amp Calcium Acetate (Phoslo -) 667 mg PO TIDCM [facility] Last Admin: 07/15/17 10:43 Dose: 667 mg Cyclobenzaprine HCl (Flexeril -) 10 mg PO HS [facility] Last Admin: 07/15/17 00:22 Dose: 10 mg Folic Acid (Folic Acid -) 1 mg PO DAILY [facility] Last Admin: 07/15/17 10:45 Dose: 1 mg Levothyroxine Sodium (Synthroid -) 25 mcg PO DAILY@0700 [facility] Last Admin: 07/14/17 06:40 Dose: 25 mcg Metoprolol Succinate (Toprol Xl -) 12.5 mg PO DAILY [facility] Last Admin: 07/15/17 10:45 Dose: Not Given Sevelamer Carbonate (Renvela -) 1,600 mg PO BID@0800,1730 [facility] Last Admin: 07/15/17 10:44 Dose: 1,600 mg Tamsulosin HCl (Flomax -) 0.4 mg PO DAILY@0830 [facility] Last Admin: 07/15/17 10:43 Dose: 0.4 mg - Objective Vital Signs: Vital Signs Temperature 97.9 F 07/15/17 02:11 Pulse Rate 79 07/15/17 10:00 Respiratory Rate 18 07/15/17 02:11 Blood Pressure 94/56 07/15/17 02:11 O2 Sat by Pulse Oximetry (%) 96 07/15/17 10:00 Constitutional: Yes: Well Nourished, Calm Eyes: Yes: WNL HENT: Yes: WNL Neck: Yes: WNL Cardiovascular: Yes: Regular Rate and Rhythm, S1, S2 Respiratory: Yes: Rales (DIMINISED BS AT BASES) Gastrointestinal: Yes: Normal Bowel Sounds, Soft Extremities: Yes: WNL Edema: No Problem List - Problems (1) ESRD on hemodialysis Code(s): N18.6 - END STAGE RENAL DISEASE; Z99.2 - DEPENDENCE ON RENAL DIALYSIS (2) Anemia in ESRD (end-stage renal disease) Code(s): N18.6 - END STAGE RENAL DISEASE; D63.1 - ANEMIA IN CHRONIC KIDNEY DISEASE (3) Fluid overload Code(s): E87.70 - FLUID OVERLOAD, UNSPECIFIED Qualifiers: Hypervolemia type: unspecified Qualified Code(s): E87.70 - Fluid overload, unspecified (4) Pulmonary hypertension Code(s): I27.2 - OTHER SECONDARY PULMONARY HYPERTENSION * DO NOT USE * (5) Acute dyspnea Code(s): R06.00 - DYSPNEA, UNSPECIFIED (6) Acute on chronic combined systolic and diastolic CHF, NYHA class 4 Code(s): I50.43 - ACUTE ON CHRONIC COMBINED SYSTOLIC AND DIASTOLIC HRT FAIL (7) Hypoxia Code(s): R09.02 - HYPOXEMIA (8) H/O mitral valve repair Code(s): Z98.890 - OTHER SPECIFIED POSTPROCEDURAL STATES (9) SOB (shortness of breath) Code(s): R06.02 - SHORTNESS OF BREATH (10) ESRD (end stage renal disease) on dialysis Code(s): N18.6 - END STAGE RENAL DISEASE; Z99.2 - DEPENDENCE ON RENAL DIALYSIS (11) Hypotension Code(s): I95.9 - HYPOTENSION, UNSPECIFIED (12) COPD (chronic obstructive pulmonary disease) Code(s): J44.9 - CHRONIC OBSTRUCTIVE PULMONARY DISEASE, UNSPECIFIED (13) Acute on chronic respiratory failure with hypoxemia Code(s): J96.21 - ACUTE AND CHRONIC RESPIRATORY FAILURE WITH HYPOXIA Assessment/Plan MP ACUTE HYPOXEMIC RESPIRATORY FAILURE IMPROVED CHF PULMONARY HTN S/P MVR,TVR COPD ESRD ANEMIA HYPOTENSION PLAN HD PER RENAL O2 INHALED BRONCHODILATORS MONITOR LYTES,H+H PT DR HELLER Problem List - Problems (1) ESRD (end stage renal disease) on dialysis Code(s): N18.6 - END STAGE RENAL DISEASE Z99.2 - DEPENDENCE ON RENAL DIALYSIS (2) Fluid overload Code(s): E87.70 - FLUID OVERLOAD, UNSPECIFIED Qualifiers: Hypervolemia type: unspecified Qualified Code(s): E87.70 - Fluid overload, unspecified; E87.70 - Fluid overload, unspecified (3) H/O mitral valve repair Code(s): Z98.890 - OTHER SPECIFIED POSTPROCEDURAL STATES (4) Hypotension Code(s): I95.9 - HYPOTENSION, UNSPECIFIED (5) SOB (shortness of breath) Code(s): R06.02 - SHORTNESS OF BREATH (6) ESRD on hemodialysis Code(s): N18.6 - END STAGE RENAL DISEASE Z99.2 - DEPENDENCE ON RENAL DIALYSIS (7) Acute dyspnea Code(s): R06.00 - DYSPNEA, UNSPECIFIED (8) Acute on chronic combined systolic and diastolic CHF, NYHA class 4 Code(s): I50.43 - ACUTE ON CHRONIC COMBINED SYSTOLIC AND DIASTOLIC HRT FAIL (9) Anemia in ESRD (end-stage renal disease) Code(s): N18.6 - END STAGE RENAL DISEASE D63.1 - ANEMIA IN CHRONIC KIDNEY DISEASE (10) Hypoxia Code(s): R09.02 - HYPOXEMIA (11) Pulmonary hypertension Code(s): I27.2 - OTHER SECONDARY PULMONARY HYPERTENSION * DO NOT USE * (12) COPD (chronic obstructive pulmonary disease) Code(s): J44.9 - CHRONIC OBSTRUCTIVE PULMONARY DISEASE, UNSPECIFIED (13) Acute on chronic respiratory failure with hypoxemia Code(s): J96.21 - ACUTE AND CHRONIC RESPIRATORY FAILURE WITH HYPOXIA
--- NOTE | 2017-07-15 11:34 | PN ---
Physical Exam: Medicine coverage for Dr. Gee SUBJECTIVE: Patient seen and examined. His only concern is he wants to go to PT downstairs. He then kicked me out of his room OBJECTIVE: Vital Signs Period Temp Pulse Resp BP Sys/Anderson Pulse Ox Last 24 Hr 97.4 F-98.8 F 75-90 18-20 77-106/39-66 96-100 PE - Pt refused Laboratory Results - last 24 hr 07/14/17 07/14/17 07/14/17 09:50 14:30 14:30 WBC 5.8 RBC 2.98 L Hgb 9.2 L Hct 29.1 L MCV 97.4 H MCH 31.0 MCHC 31.8 L RDW 18.7 H Plt Count 155 MPV 10.3 Sodium 140 Potassium 5.1 Chloride 102 Carbon Dioxide 29 Anion Gap 9 BUN 29 H D Creatinine 7.1 H Creat Clearance w eGFR 8.08 Random Glucose 99 D Calcium 7.9 L Phosphorus 3.6 Total Bilirubin 0.3 D AST 22 D ALT 18 Alkaline Phosphatase 123 H Total Protein 4.9 L Albumin 1.7 L Pleural Fluid Source Left pleural Pleural Color Straw Pleural Appearance Clear Pleural WBC 78 Pleural RBC 223 Pleural Neutrophils 13 Pleural Lymphocytes 80 Pleural Monocytes 7 Pleural Total Protein 0.588 Pleural Albumin 0 Pleural LDH 57 Pleural Glucose 107.785 Pleural Amylase 49.473 Pleural Triglycerides 7 Active Medications Generic Name Dose Route Start Last Admin Trade Name Freq PRN Reason Stop Dose Admin Acetaminophen 650 mg 07/04/17 17:08 07/14/17 21:17 Tylenol - PO 650 mg Q6H PRN Administration FEVER OR PAIN Albuterol/Ipratropium 1 amp 07/11/17 21:18 07/15/17 10:00 Duoneb - NEB 1 amp Q4H PRN Administration SHORTNESS OF BREATH Calcium Acetate 667 mg 07/06/17 19:47 07/15/17 10:43 Phoslo - PO 667 mg TIDCM MONAE Administration Cyclobenzaprine HCl 10 mg 07/04/17 22:00 07/15/17 00:22 Flexeril - PO 10 mg HS MONAE Administration Folic Acid 1 mg 07/04/17 10:00 07/15/17 10:45 Folic Acid - PO 1 mg DAILY MONAE Administration Levothyroxine Sodium 25 mcg 07/07/17 07:00 07/14/17 06:40 Synthroid - PO 25 mcg DAILY@0700 MONAE Administration Metoprolol Succinate 12.5 mg 07/07/17 10:00 07/15/17 10:45 Toprol Xl - PO Not Given DAILY MONAE Sevelamer Carbonate 1,600 mg 07/06/17 20:09 07/15/17 10:44 Renvela - PO 1,600 mg BID@0800,1730 MONAE Administration Tamsulosin HCl 0.4 mg 07/04/17 08:30 07/15/17 10:43 Flomax - PO 0.4 mg DAILY@0830 MONAE Administration Assessment: HTN, HLD, Anemia, Severe Pulmonary HTN, Polysubstance Abuse, 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), ESRD (, ) recent admission [facility], [facility] admitted with hypoxia, hypotension from PMD office then fund to be in CHF volume overload s/p thoracentesis 07/14. Plan: 1. SOB and hypoxia due to Volume overload/ Acute diastolic HF - Due to valvular heart disease - Improved with HD with UF - ECHO with nml LVSF, severe pulm HTN - s/p thoracentesis 07/14 2. ESRD - HD per Renal service - Permacath RCW 3. Pleural effusion - s/p thoracentesis 07/14, cx pending - Serology c/w transudative effusion 4. ASD - Resume ASA per cardiology 5. P Afib - No AC d/t bleeding and non compliance - Telemetry with NSR, x2 run 3 beats VT - Continue toprol 12.5mg daily 6. Anemia of chronic disease - Continue epo and iron with HD per renal 7. PPX - PT daily 8. BPH - Flomax Visit type - Emergency Visit Emergency Visit: Yes ED Registration Date: 07/03/17 Care time: The patient presented to the Emergency Department on the above date and was hospitalized for further evaluation of their emergent condition. - New Patient This patient is new to me today: Yes Date on this admission: 07/15/17 - Critical Care Critical Care patient: No
--- NOTE | 2017-07-15 16:28 | PATH ---
Cytology Non-Gynecological Report Patient Name: ELOY FENG JR [facility]. Rec. #: [id number] /Age/Gender: 1960 (Age: 57) / M Account: [id number] Location: [facility] PEDS/ADOL Taken: 07/14/2017 Received: 07/14/2017 Reported: 07/15/2017 Physicians: Torres Amanda M.D. Specimen(s) Received A: PLEURAL FLUID B: PLEURAL FLUID Clinical History Pleural effusion Final Diagnosis A. PLEURAL FLUID, ULTRASOUND GUIDED THORACENTESIS: SATISFACTORY FOR EVALUATION. NO MALIGNANT CELLS IDENTIFIED. MESOTHELIAL CELLS AND LYMPHOCYTES PRESENT. B. PLEURAL FLUID, ULTRASOUND GUIDED THORACENTESIS: SATISFACTORY FOR EVALUATION. NO MALIGNANT CELLS IDENTIFIED. MESOTHELIAL CELLS AND LYMPHOCYTES PRESENT. Electronically Signed Shona Perez M.D. Gross Description A. Approximately 50 cc of yellow fluid received fixed in 50% alcohol. Two cytofunnels and one cellblock prepared. B. Approximately 2000 cc of yellow fluid received fresh. Two cytofunnels and one cellblock prepared
--- NOTE | 2017-07-15 17:25 | PN ---
Progress Note (short form) - Note Progress Note: Renal follow up for ESRD on HD Pt seen and examined at the bedside awake and alert no acute complaints Vital Signs Temperature 97.5 F L 07/15/17 14:12 Pulse Rate 83 07/15/17 14:12 Respiratory Rate 16 07/15/17 14:12 Blood Pressure 107/60 07/15/17 14:12 O2 Sat by Pulse Oximetry (%) 96 07/15/17 10:00 Intake & Output 07/12/17 07/13/17 07/14/17 07/15/17 23:59 23:59 23:59 23:59 Intake Total 1130 895 740 Balance 1130 895 740 Weight NAD awake and alert RRR + murmur Dec BS at lung bases no Le edema CBC, BMP 07/14/17 14:30 07/14/17 14:30 Current Medications Acetaminophen (Tylenol -) 650 mg PO Q6H PRN PRN Reason: FEVER OR PAIN Last Admin: 07/14/17 21:17 Dose: 650 mg Albuterol/Ipratropium (Duoneb -) 1 amp NEB Q4H PRN PRN Reason: SHORTNESS OF BREATH Last Admin: 07/15/17 10:00 Dose: 1 amp Calcium Acetate (Phoslo -) 667 mg PO TIDCM [facility] Last Admin: 07/15/17 12:30 Dose: Not Given Cyclobenzaprine HCl (Flexeril -) 10 mg PO HS [facility] Last Admin: 07/15/17 00:22 Dose: 10 mg Folic Acid (Folic Acid -) 1 mg PO DAILY [facility] Last Admin: 07/15/17 10:45 Dose: 1 mg Levothyroxine Sodium (Synthroid -) 25 mcg PO DAILY@0700 [facility] Last Admin: 07/14/17 06:40 Dose: 25 mcg Metoprolol Succinate (Toprol Xl -) 12.5 mg PO DAILY [facility] Last Admin: 07/15/17 10:45 Dose: Not Given Sevelamer Carbonate (Renvela -) 1,600 mg PO BID@0800,1730 [facility] Last Admin: 07/15/17 10:44 Dose: 1,600 mg Tamsulosin HCl (Flomax -) 0.4 mg PO DAILY@0830 [facility] Last Admin: 07/15/17 10:43 Dose: 0.4 mg A/P 57 year old Gentleman with PMhx of ESRD on HD (TTS), CHF, Hx of infective endocarditis s/p MVR/TVR s/p recent admission at [facility] and at [facility] presents from PMD office with SOB, Hypoxia and low BP and admitted with CHF/Volume overload. #ESRD with CHF/Volume overload in setting of valvular heart disease s/p dialysis yesterday no acute indication for [facility] today next dialysis is planned for tomorrow continue fluid restriction and Na restriction #Pleural effusions s/p thoracentesis clinically improved #CKD reltaed Anemia will continue high dose Epogen and Iron load with HD Abdirashid Guthrie DO
[2017-07-15] MEDS: LEVOTHYROXINE NA 25 MCG TABLET (FP) PO SCH (19:17)
[2017-07-16] MEDS: CYCLOBENZAPRINE HCL 10 MG TABLET (FP) PO SCH (00:02)
[2017-07-16] MEDS: ACETAMINOPHEN 325 MG TABLET (FP) PO PRN (00:02)
[2017-07-16] MEDS: LEVOTHYROXINE NA 25 MCG TABLET (FP) PO SCH (06:36)
[2017-07-16] MEDS: SEVELAMER CARBONATE 800 MG TAB (FP) PO SCH ×2 (08:19→16:54)
[2017-07-16] MEDS: CALCIUM ACETATE 667 MG CAPSULE (FP) PO SCH ×3 (08:19→16:53)
--- NOTE | 2017-07-16 10:02 | PN ---
Physical Exam: SUBJECTIVE: MEdical coverage for Dr. Gee. Patient seen and examined. Denies all c/o at present. Requesting rehab placement. OBJECTIVE: Vital Signs Period Temp Pulse Resp BP Sys/Anderson Pulse Ox Last 24 Hr 97.5 F-98.5 F 73-86 16-18 85-107/49-62 96-96 GENERAL: The patient is awake, alert, and fully oriented, in no acute distress. HEAD: Normal with no signs of trauma. EYES: PERRL, extraocular movements intact, sclera anicteric, conjunctiva clear. No ptosis. NECK: Trachea midline, full range of motion, supple. No JVD present. LUNGS: Breath sounds equal, clear to auscultation bilaterally, no wheezes, no crackles, no accessory muscle use. HEART: Regular rate and rhythm, S1, S2 without murmur, rub or gallop. ABDOMEN: Soft, nontender, nondistended, normoactive bowel sounds, no guarding, no rebound, no hepatosplenomegaly, no masses. SKIN: Warm, dry, normal turgor, no rashes or lesions noted Active Medications Generic Name Dose Route Start Last Admin Trade Name Freq PRN Reason Stop Dose Admin Acetaminophen 650 mg 07/04/17 17:08 07/16/17 00:02 Tylenol - PO 650 mg Q6H PRN Administration FEVER OR PAIN Albuterol/Ipratropium 1 amp 07/11/17 21:18 07/15/17 22:03 Duoneb - NEB 1 amp Q4H PRN Administration SHORTNESS OF BREATH Calcium Acetate 667 mg 07/06/17 19:47 07/16/17 08:19 Phoslo - PO Not Given TIDCM MONAE Cyclobenzaprine HCl 10 mg 07/04/17 22:00 07/16/17 00:02 Flexeril - PO 10 mg HS MONAE Administration Epoetin Cornelio 20,000 units 07/16/17 06:00 Epogen - IVPUSH 07/16/17 06:01 ONCE ONE Folic Acid 1 mg 07/04/17 10:00 07/15/17 10:45 Folic Acid - PO 1 mg DAILY MONAE Administration Iron Sucrose 100 mg/ Sodium 100 mls @ 200 mls/hr 07/16/17 06:00 Chloride IVPB 07/16/17 06:29 ONCE ONE Levothyroxine Sodium 25 mcg 10/31/17 07:00 07/16/17 06:36 Synthroid - PO 25 mcg DAILY@0700 [facility] Administration Metoprolol Succinate 12.5 mg 07/07/17 10:00 07/15/17 10:45 Toprol Xl - PO Not Given DAILY [facility] Sevelamer Carbonate 1,600 mg 07/06/17 20:09 07/16/17 08:19 Renvela - PO Not Given BID@0800,1730 [facility] Tamsulosin HCl 0.4 mg 07/04/17 08:30 07/15/17 10:43 Flomax - PO 0.4 mg DAILY@0830 [facility] Administration ASSESSMENT/PLAN: Assessment: HTN, HLD, Anemia, Severe Pulmonary HTN, Polysubstance Abuse, 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 P: 1. SOB and hypoxia due to Volume overload/ Acute diastolic HF - Due to valvular heart disease - Improved with HD with UF - ECHO with nml LVSF, severe pulm HTN- chronic - s/p thoracentesis 07/14 2. ESRD - HD per Renal service - Permacath RCW 3. Pleural effusion - s/p thoracentesis 07/14, cx pending - Serology c/w transudative effusion 4. ASD - Resume ASA per cardiology 5. P Afib - No AC d/t bleeding and non compliance - Telemetry with NSR, x2 run 3 beats VT - Continue toprol 12.5mg daily 6. Anemia of chronic disease - Continue epogen - iron - HD per renal 8. BPH - Flomax 7. PPX - PT daily 8. F/E/N - renal diet - HD today Dispo- Like placement in rehab Visit type - Emergency Visit Emergency Visit: Yes ED Registration Date: 07/03/17 Care time: The patient presented to the Emergency Department on the above date and was hospitalized for further evaluation of their emergent condition. - New Patient This patient is new to me today: Yes Date on this admission: 07/17/17 - Critical Care Critical Care patient: No - Discharge Referral Referred to [facility] Med P.C.: No
[2017-07-16] MEDS ORDERED: IRON SUCROSE INJECTION 100 MG in SODIUM CHLORIDE 95 ML IVPB ONE (11:15)
[2017-07-16] MEDS ORDERED: EPOETIN ALFA 20,000 UNIT/1 ML VIAL IVPUSH ONE (11:15)
[2017-07-16] MEDS: METOPROLOL SUCCINATE 25 MG TAB.SR.24H (FP) PO SCH (11:16)
--- NOTE | 2017-07-16 11:42 | PN ---
Progress Note (short form) - Note Progress Note: Renal follow up for ESRD on HD Pt seen and examined at the bedside awake and alert no acute complaints sob is considerably improved no chest pain for dialysis later today Vital Signs Temperature 97.4 F L 07/16/17 10:00 Pulse Rate 71 07/16/17 11:20 Respiratory Rate 18 07/16/17 10:00 Blood Pressure 98/61 07/16/17 10:00 O2 Sat by Pulse Oximetry (%) 95 07/16/17 11:20 Intake & Output 07/13/17 07/14/17 07/15/17 07/16/17 23:59 23:59 23:59 23:59 Intake Total 1130 895 860 370 Balance 1130 895 860 370 NAD awake and alert RRR + murmur Dec BS at lung bases no Le edema CBC, BMP 07/14/17 14:30 07/14/17 14:30 Laboratory Tests 07/14/17 14:30 Calcium 7.9 L Phosphorus 3.6 Albumin 1.7 L Current Medications Acetaminophen (Tylenol -) 650 mg PO Q6H PRN PRN Reason: FEVER OR PAIN Last Admin: 07/16/17 00:02 Dose: 650 mg Albuterol/Ipratropium (Duoneb -) 1 amp NEB Q4H PRN PRN Reason: SHORTNESS OF BREATH Last Admin: 07/15/17 22:03 Dose: 1 amp Calcium Acetate (Phoslo -) 667 mg PO TIDCM [facility] Last Admin: 07/16/17 08:19 Dose: Not Given Cyclobenzaprine HCl (Flexeril -) 10 mg PO HS [facility] Last Admin: 07/16/17 00:02 Dose: 10 mg Folic Acid (Folic Acid -) 1 mg PO DAILY [facility] Last Admin: 07/15/17 10:45 Dose: 1 mg Iron Sucrose 100 mg/ Sodium (Chloride) 100 mls @ 200 mls/hr IVPB ONCE ONE Stop: 07/16/17 11:44 Levothyroxine Sodium (Synthroid -) 25 mcg PO DAILY@0700 [facility] Last Admin: 07/16/17 06:36 Dose: 25 mcg Metoprolol Succinate (Toprol Xl -) 12.5 mg PO DAILY [facility] Last Admin: 07/16/17 11:16 Dose: Not Given Sevelamer Carbonate (Renvela -) 1,600 mg PO BID@0800,1730 [facility] Last Admin: 07/16/17 08:19 Dose: Not Given Tamsulosin HCl (Flomax -) 0.4 mg PO DAILY@0830 [facility] Last Admin: 07/15/17 10:43 Dose: 0.4 mg A/P 57 year old Gentleman with PMhx of ESRD on HD (TTS), CHF, Hx of infective endocarditis s/p MVR/TVR s/p recent admission at [facility] and at [facility] presents from PMD office with SOB, Hypoxia and low BP and admitted with CHF/Volume overload. #ESRD with CHF/Volume overload in setting of valvular heart disease Volume status is much improved for HD today with UF as tolerated continue fluid and salt restriction #Pleural effusions s/p thoracentesis clinically improved #CKD reltaed Anemia for MARCO ANTONIO with HD today no acute indication for transfusion awaiting Rehab placement Abdirashid Guthrie DO
--- NOTE | 2017-07-16 12:49 | PN ---
Progress Note (short form) - Note Progress Note: Breathing feels overall better. No CP. No acute Intake & Output 07/13/17 07/14/17 07/15/17 07/16/17 23:59 23:59 23:59 23:59 Intake Total 1130 895 860 370 Balance 1130 895 860 370 Last Vital Signs Temp Pulse Resp BP Pulse Ox 97.4 F L 76 18 83/49 95 07/16/17 10:00 07/16/17 12:00 07/16/17 12:00 07/16/17 12:00 07/16/17 11:20 Active Medications Acetaminophen (Tylenol -) 650 mg PO Q6H PRN PRN Reason: FEVER OR PAIN Last Admin: 07/16/17 00:02 Dose: 650 mg Albuterol/Ipratropium (Duoneb -) 1 amp NEB Q4H PRN PRN Reason: SHORTNESS OF BREATH Last Admin: 07/15/17 22:03 Dose: 1 amp Calcium Acetate (Phoslo -) 667 mg PO TIDCM [facility] Last Admin: 07/16/17 08:19 Dose: Not Given Cyclobenzaprine HCl (Flexeril -) 10 mg PO HS [facility] Last Admin: 07/16/17 00:02 Dose: 10 mg Folic Acid (Folic Acid -) 1 mg PO DAILY [facility] Last Admin: 07/15/17 10:45 Dose: 1 mg Levothyroxine Sodium (Synthroid -) 25 mcg PO DAILY@0700 [facility] Last Admin: 07/16/17 06:36 Dose: 25 mcg Metoprolol Succinate (Toprol Xl -) 12.5 mg PO DAILY [facility] Last Admin: 07/16/17 11:16 Dose: Not Given Sevelamer Carbonate (Renvela -) 1,600 mg PO BID@0800,1730 [facility] Last Admin: 07/16/17 08:19 Dose: Not Given Tamsulosin HCl (Flomax -) 0.4 mg PO DAILY@0830 [facility] Last Admin: 07/15/17 10:43 Dose: 0.4 mg Constitutional: Yes: NAD Eyes: Yes: WNL HENT: Yes: WNL Neck: Yes: WNL Cardiovascular: Yes: Regular Rate and Rhythm, S1, S2 Respiratory: Yes: few rhonchi at the bases Gastrointestinal: Yes: Normal Bowel Sounds, Soft Extremities: Yes: WNL Edema: No Problem List - Problems (1) ESRD on hemodialysis Code(s): N18.6 - END STAGE RENAL DISEASE; Z99.2 - DEPENDENCE ON RENAL DIALYSIS (2) Anemia in ESRD (end-stage renal disease) Code(s): N18.6 - END STAGE RENAL DISEASE; D63.1 - ANEMIA IN CHRONIC KIDNEY DISEASE (3) Fluid overload Code(s): E87.70 - FLUID OVERLOAD, UNSPECIFIED Qualifiers: Hypervolemia type: unspecified Qualified Code(s): E87.70 - Fluid overload, unspecified (4) Pulmonary hypertension Code(s): I27.2 - OTHER SECONDARY PULMONARY HYPERTENSION * DO NOT USE * (5) Acute dyspnea Code(s): R06.00 - DYSPNEA, UNSPECIFIED (6) Acute on chronic combined systolic and diastolic CHF, NYHA class 4 Code(s): I50.43 - ACUTE ON CHRONIC COMBINED SYSTOLIC AND DIASTOLIC HRT FAIL (7) Hypoxia Code(s): R09.02 - HYPOXEMIA (8) H/O mitral valve repair Code(s): Z98.890 - OTHER SPECIFIED POSTPROCEDURAL STATES (9) SOB (shortness of breath) Code(s): R06.02 - SHORTNESS OF BREATH (10) ESRD (end stage renal disease) on dialysis Code(s): N18.6 - END STAGE RENAL DISEASE; Z99.2 - DEPENDENCE ON RENAL DIALYSIS (11) Hypotension Code(s): I95.9 - HYPOTENSION, UNSPECIFIED (12) COPD (chronic obstructive pulmonary disease) Code(s): J44.9 - CHRONIC OBSTRUCTIVE PULMONARY DISEASE, UNSPECIFIED (13) Acute on chronic respiratory failure with hypoxemia Code(s): J96.21 - ACUTE AND CHRONIC RESPIRATORY FAILURE WITH HYPOXIA Assessment/Plan MP ACUTE HYPOXEMIC RESPIRATORY FAILURE IMPROVED CHF PULMONARY HTN S/P MVR,TVR COPD ESRD ANEMIA HYPOTENSION PLAN HD PER RENAL O2 NEEDED INHALED BRONCHODILATORS PT D/C PLANNING DR POWELL
--- NOTE | 2017-07-16 12:51 | PN ---
Progress Note, Physician History of Present Illness: seen and examined today in [facility]. states he is feeling tired. no new complaints. wants to go to rehab. - Current Medication List Current Medications: Active Medications Acetaminophen (Tylenol -) 650 mg PO Q6H PRN PRN Reason: FEVER OR PAIN Last Admin: 07/16/17 00:02 Dose: 650 mg Albuterol/Ipratropium (Duoneb -) 1 amp NEB Q4H PRN PRN Reason: SHORTNESS OF BREATH Last Admin: 07/15/17 22:03 Dose: 1 amp Calcium Acetate (Phoslo -) 667 mg PO TIDCM [facility] Last Admin: 07/16/17 08:19 Dose: Not Given Cyclobenzaprine HCl (Flexeril -) 10 mg PO HS [facility] Last Admin: 07/16/17 00:02 Dose: 10 mg Folic Acid (Folic Acid -) 1 mg PO DAILY [facility] Last Admin: 07/15/17 10:45 Dose: 1 mg Levothyroxine Sodium (Synthroid -) 25 mcg PO DAILY@0700 [facility] Last Admin: 07/16/17 06:36 Dose: 25 mcg Metoprolol Succinate (Toprol Xl -) 12.5 mg PO DAILY [facility] Last Admin: 07/16/17 11:16 Dose: Not Given Sevelamer Carbonate (Renvela -) 1,600 mg PO BID@0800,1730 [facility] Last Admin: 07/16/17 08:19 Dose: Not Given Tamsulosin HCl (Flomax -) 0.4 mg PO DAILY@0830 [facility] Last Admin: 07/15/17 10:43 Dose: 0.4 mg - Objective Vital Signs: Vital Signs Temperature 97.4 F L 07/16/17 10:00 Pulse Rate 76 07/16/17 12:00 Respiratory Rate 18 07/16/17 12:00 Blood Pressure 83/49 07/16/17 12:00 O2 Sat by Pulse Oximetry (%) 95 07/16/17 11:20 Constitutional: Yes: No Distress, Calm Eyes: Yes: Conjunctiva Clear, EOM Intact, PERRL HENT: Yes: Atraumatic, Normocephalic Neck: Yes: Supple, Trachea Midline Cardiovascular: Yes: Regular Rate and Rhythm, Murmur, S1, S2. No: Bradycardia, Tachycardia, Pulse Irregular, Bruit, JVD, Gallop, Rub, S3, S4, Varicosities Respiratory: Yes: Regular, Diminished. No: Rales, Rhonchi, SOB, Wheezes Gastrointestinal: Yes: Normal Bowel Sounds, Soft. 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 SOB-volume overload due to chronic PHTN and diastolic CHF, large pleural effusion -s/p thoracentesis -resume asa when feasible when safe to do so after procedure -Cont with volume removal with HD/UF as long as BP tolerates -echo here shows normal LV function w/ severe PHTN- chronic. ASD: -ASA 81mg daily for possible prior occular TIA, to be resumed -outpatient f/up for further management Afib-paroxsymal -has been NSR throughout admission -not on AC due to h/o bleeding and poor compliance with outpatient f/u -Cont ASA after thoracentesis NSVT- short runs, asymptomatic with normal LV systolic function -Toprol 12.5mg daily when tolerates No additional planned inpatient cardiac work up at this time. Pt is acceptable for discharge to rehab from cardiac standpoint.
[2017-07-16 12:55] LABS: BASOPHIL 1.3 % (0-2.0); EOSINOPHIL 11.4 % (0-4.5); MCH 30.9 pg (25.7-33.7); MCHC 31.7 g/dl (32.0-35.9); MEAN CELL VOLUME 97.6 fl (80-96); NEUTROPHILS 71.4 % (42.8-82.8); PLATELET COUNT 142 K/MM3 (134-434); WHITE BLOOD COUNT 5.6 K/mm3 (4.0-10.0)
[2017-07-16] MEDS: TAMSULOSIN HCL 0.4 MG CAP.ER.24H (FP) PO SCH (16:53)
[2017-07-16] MEDS: FOLIC ACID 1 MG TABLET (FP) PO SCH (16:54)
[2017-07-16] MEDS: ALBUTEROL SO4 2.5/IPRATROPIUM 0.5 INH SOL 3 ML VIAL.NEB. NEB PRN (19:31)
[2017-07-17] MEDS: ACETAMINOPHEN 325 MG TABLET (FP) PO PRN (00:31)
[2017-07-17] MEDS: CYCLOBENZAPRINE HCL 10 MG TABLET (FP) PO SCH ×2 (00:31→21:37)
[2017-07-17] MEDS: LEVOTHYROXINE NA 25 MCG TABLET (FP) PO SCH (06:07)
[2017-07-17 07:49] LABS: ANION GAP 10 (8-16); CALCIUM 7.3 mg/dL (8.5-10.1); CO2 29 mmol/L (21-32); GLUCOSE,RANDOM 92 mg/dL (74-106); MAGNESIUM 1.9 mg/dL (1.8-2.4)
[2017-07-17 07:52] LABS: EOSINOPHIL 12.6 % (0-4.5); MCH 31.3 pg (25.7-33.7); MCHC 32.1 g/dl (32.0-35.9); MEAN CELL VOLUME 97.3 fl (80-96); MEAN PLT VOLUME 9.7 fl (7.5-11.1); NEUTROPHILS 64.8 % (42.8-82.8); PLATELET COUNT 131 K/MM3 (134-434); RDW 18.7 % (11.9-15.9); WHITE BLOOD COUNT 4.5 K/mm3 (4.0-10.0)
[2017-07-17] MEDS: SEVELAMER CARBONATE 800 MG TAB (FP) PO SCH ×2 (08:26→17:30)
[2017-07-17] MEDS: CALCIUM ACETATE 667 MG CAPSULE (FP) PO SCH ×3 (08:26→17:30)
[2017-07-17] MEDS: TAMSULOSIN HCL 0.4 MG CAP.ER.24H (FP) PO SCH (08:26)
--- NOTE | 2017-07-17 10:17 | PN ---
Progress Note, Physician History of Present Illness: seen and examined today in [facility]. feeling tired, did not sleep well last night. waiting to go to rehab. - Current Medication List Current Medications: Active Medications Acetaminophen (Tylenol -) 650 mg PO Q6H PRN PRN Reason: FEVER OR PAIN Last Admin: 07/17/17 00:31 Dose: 650 mg Calcium Acetate (Phoslo -) 667 mg PO TIDCM [facility] Last Admin: 07/17/17 08:26 Dose: 667 mg Cyclobenzaprine HCl (Flexeril -) 10 mg PO HS [facility] Last Admin: 07/17/17 00:31 Dose: 10 mg Folic Acid (Folic Acid -) 1 mg PO DAILY [facility] Last Admin: 07/16/17 16:54 Dose: 1 mg Levothyroxine Sodium (Synthroid -) 25 mcg PO DAILY@0700 [facility] Last Admin: 07/17/17 06:07 Dose: 25 mcg Metoprolol Succinate (Toprol Xl -) 12.5 mg PO DAILY [facility] Last Admin: 07/16/17 11:16 Dose: Not Given Sevelamer Carbonate (Renvela -) 1,600 mg PO BID@0800,1730 [facility] Last Admin: 07/17/17 08:26 Dose: 1,600 mg Tamsulosin HCl (Flomax -) 0.4 mg PO DAILY@0830 [facility] Last Admin: 07/17/17 08:26 Dose: 0.4 mg - Objective Vital Signs: Vital Signs Temperature 98.1 F 07/17/17 06:00 Pulse Rate 82 07/17/17 06:00 Respiratory Rate 20 07/17/17 06:00 Blood Pressure 83/44 07/17/17 06:00 O2 Sat by Pulse Oximetry (%) 92 L 07/16/17 21:00 Constitutional: Yes: No Distress, Calm Eyes: Yes: Conjunctiva Clear, EOM Intact HENT: Yes: Atraumatic, Normocephalic Neck: Yes: Supple, Trachea Midline Cardiovascular: Yes: Regular Rate and Rhythm, Murmur, S1, S2. No: Bradycardia, Tachycardia, Pulse Irregular, Bruit, JVD, Gallop, Rub, S3, S4, Varicosities Respiratory: Yes: Regular. No: Rales, Rhonchi, Wheezes Gastrointestinal: Yes: Normal Bowel Sounds, Soft. 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 SOB-volume overload due to chronic PHTN and diastolic CHF, large pleural effusion -s/p thoracentesis -will resume asa 81mg daily -Cont with volume removal with HD/UF as long as BP tolerates -echo here shows normal LV function w/ severe PHTN- chronic. ASD: -ASA 81mg daily for possible prior occular TIA, to be resumed today -outpatient f/up for further management Afib-paroxsymal -has been NSR throughout admission -not on AC due to h/o bleeding and poor compliance with outpatient f/u -Cont ASA NSVT- short runs, asymptomatic with normal LV systolic function -Toprol 12.5mg daily when tolerates No additional planned inpatient cardiac work up at this time. Pt is acceptable for discharge to rehab from cardiac standpoint.
[2017-07-17] MEDS: ASPIRIN 81 MG CHEWABLE TABLETS PO SCH (10:59)
[2017-07-17] MEDS: FOLIC ACID 1 MG TABLET (FP) PO SCH (10:59)
[2017-07-17] MEDS: METOPROLOL SUCCINATE 25 MG TAB.SR.24H (FP) PO SCH (11:53)
--- NOTE | 2017-07-17 13:22 | PN ---
Progress Note (short form) - Note Progress Note: Renal follow up for ESRD on HD Pt seen and examined at the bedside awake and alert no acute complaints no sob, chest pain s/p dialysis yesterday Vital Signs Temperature 98.4 F 07/17/17 10:00 Pulse Rate 85 07/17/17 10:00 Respiratory Rate 20 07/17/17 10:00 Blood Pressure 99/58 07/17/17 10:00 O2 Sat by Pulse Oximetry (%) 94 L 07/17/17 09:00 Intake & Output 07/14/17 07/15/17 07/16/17 07/17/17 23:59 23:59 23:59 23:59 Intake Total 895 860 955 200 Balance 895 860 955 200 Weight 159 lb NAD awake and alert RRR + murmur Dec BS at lung bases no Le edema CBC, BMP 07/17/17 07:45 07/17/17 05:10 Current Medications Acetaminophen (Tylenol -) 650 mg PO Q6H PRN PRN Reason: FEVER OR PAIN Last Admin: 07/17/17 00:31 Dose: 650 mg Aspirin (Asa -) 81 mg PO DAILY [facility] Last Admin: 07/17/17 10:59 Dose: 81 mg Calcium Acetate (Phoslo -) 667 mg PO TIDCM [facility] Last Admin: 07/17/17 11:53 Dose: 667 mg Cyclobenzaprine HCl (Flexeril -) 10 mg PO HS [facility] Last Admin: 07/17/17 00:31 Dose: 10 mg Folic Acid (Folic Acid -) 1 mg PO DAILY [facility] Last Admin: 07/17/17 10:59 Dose: 1 mg Levothyroxine Sodium (Synthroid -) 25 mcg PO DAILY@0700 [facility] Last Admin: 07/17/17 06:07 Dose: 25 mcg Metoprolol Succinate (Toprol Xl -) 12.5 mg PO DAILY [facility] Last Admin: 07/17/17 11:53 Dose: Not Given Sevelamer Carbonate (Renvela -) 1,600 mg PO BID@0800,1730 [facility] Last Admin: 07/17/17 08:26 Dose: 1,600 mg Tamsulosin HCl (Flomax -) 0.4 mg PO DAILY@0830 [facility] Last Admin: 07/17/17 08:26 Dose: 0.4 mg A/P 57 year old Gentleman with PMhx of ESRD on HD (TTS), CHF, Hx of infective endocarditis s/p MVR/TVR s/p recent admission at [facility] and at [facility] presents from PMD office with SOB, Hypoxia and low BP and admitted with CHF/Volume overload. #ESRD with CHF/Volume overload in setting of valvular heart disease Volume status improved, SOB improved considerably after thoracentesis no acute indication for [employer]ANCER today next dialysis is planned for tomorrow #Pleural effusions s/p thoracentesis clinically improved #CKD reltaed Anemia for MARCO ANTONIO with HD today no acute indication for transfusion awaiting Rehab placement Abdirashid Guthrie DO
--- NOTE | 2017-07-17 14:29 | PN ---
Physical Exam: SUBJECTIVE: Patient seen and examined at the bedside. States he feels well, denies pain or shortness of breath Stating that he wants to go to rehab and be home before Thanksgiving. OBJECTIVE: SW aware of patient's wishes to go to rehab Respiratory pre and post ordered s/p dialysis yesterday Vital Signs Period Temp Pulse Resp BP Sys/Anderson Pulse Ox Last 24 Hr 97.6 F-98.4 F 77-104 16-20 77-108/31-84 92-94 GENERAL: The patient is awake, alert, and fully oriented, in no acute distress. HEAD: Normal with no signs of trauma. EYES: PERRL, extraocular movements intact, sclera anicteric, conjunctiva clear. No ptosis. ENT: Ears normal, nares patent, oropharynx clear without exudates, moist mucous membranes. NECK: Trachea midline, full range of motion, supple. LUNGS: Breath sounds equal, diminished HEART: Regular rate and rhythm ABDOMEN: Soft, nontender, nondistended, normoactive bowel sounds, no guarding, no rebound, no hepatosplenomegaly, no masses. EXTREMITIES: trace edema. NEUROLOGICAL: Normal speech, gait not observed. PSYCH: Normal mood, normal affect. SKIN: Warm, dry, normal turgor, no rashes or lesions noted Laboratory Results - last 24 hr 07/17/17 07/17/17 05:10 07:45 WBC 4.5 RBC 2.86 L Hgb 9.0 L Hct 27.8 L MCV 97.3 H MCH 31.3 MCHC 32.1 RDW 18.7 H Plt Count 131 L MPV 9.7 Neutrophils % 64.8 Lymphocytes % 8.7 Monocytes % 11.9 H Eosinophils % 12.6 H Basophils % 2.0 Sodium 143 Potassium 4.5 Chloride 104 Carbon Dioxide 29 Anion Gap 10 BUN 21 H D Creatinine 5.0 H D Random Glucose 92 Calcium 7.3 L Magnesium 1.9 Active Medications Generic Name Dose Route Start Last Admin Trade Name Freq PRN Reason Stop Dose Admin Acetaminophen 650 mg 07/04/17 17:08 07/17/17 00:31 Tylenol - PO 650 mg Q6H PRN Administration FEVER OR PAIN Aspirin 81 mg 07/17/17 10:30 07/17/17 10:59 Asa - PO 81 mg DAILY [facility] Administration Calcium Acetate 667 mg 07/06/17 19:47 07/17/17 11:53 Phoslo - PO 667 mg TIDCM [facility] Administration Cyclobenzaprine HCl 10 mg 07/04/17 22:00 07/17/17 00:31 Flexeril - PO 10 mg HS [facility] Administration Epoetin Cornelio 20,000 unit 07/18/17 06:00 Procrit - IVPUSH 07/18/17 06:01 ONCE ONE Folic Acid 1 mg 07/04/17 10:00 07/17/17 10:59 Folic Acid - PO 1 mg DAILY [facility] Administration Levothyroxine Sodium 25 mcg 07/07/17 07:00 07/17/17 06:07 Synthroid - PO 25 mcg DAILY@0700 [facility] Administration Metoprolol Succinate 12.5 mg 07/07/17 10:00 07/17/17 11:53 Toprol Xl - PO Not Given DAILY [facility] Sevelamer Carbonate 1,600 mg 07/06/17 20:09 07/17/17 08:26 Renvela - PO 1,600 mg BID@0800,1730 [facility] Administration Tamsulosin HCl 0.4 mg 07/04/17 08:30 07/17/17 08:26 Flomax - PO 0.4 mg DAILY@0830 [facility] Administration ASSESSMENT/PLAN: Patient is a 57 year old male with a significant past medical history of ESRD on dialysis (TTS), CHF, Hx of infective endocarditis s/p MVR/TVR. He presents from his PMD on 07/03/2017 with worsening shortness of breath, hypoxia and hypotension. He was admitted for CHF and volume overload. Pulmonary: Pleural effusions, s/p thoracentesis on 07/14 1550 cc of fluid removed, left sided pleural effusion SOB and hypoxia due to Volume overload/ Acute diastolic HF Improved with hemodialysis Secondary to cardiac valvular disease Echo reviewed On Supplemental oxygen Renal: ESRD, dialysis TTS Last dialysis yesterday via permacath Cardiology: Prox. Afib, chronic As per cardilogy, no a/c d/t bleeding risk and non compliance On Toprol 12.5mg daily Atrial Septal Defect On ASA 81mg Outpatient cardiology follow-up Hematology: Anemia of chronic disease On epogen Monitor CBC F.E.N. Fluids: tolerating PO Electrolytes: monitor Nutrition: renal diet Prophylaxis: DVT: ambulation GI: deferred Disposition: Awaiting placement to pulmonary rehab facility. full code. t Visit type - Emergency Visit Emergency Visit: Yes ED Registration Date: 07/03/17 Care time: The patient presented to the Emergency Department on the above date and was hospitalized for further evaluation of their emergent condition. - New Patient This patient is new to me today: Yes Date on this admission: 07/17/17 - Critical Care Critical Care patient: No - Discharge Referral Referred to [facility] No
--- NOTE | 2017-07-17 15:31 | PN ---
Progress Note, Physician History of Present Illness: pulmonary alert,feeling better,-sob - Current Medication List Current Medications: Active Medications Acetaminophen (Tylenol -) 650 mg PO Q6H PRN PRN Reason: FEVER OR PAIN Last Admin: 07/17/17 00:31 Dose: 650 mg Aspirin (Asa -) 81 mg PO DAILY [facility] Last Admin: 07/17/17 10:59 Dose: 81 mg Calcium Acetate (Phoslo -) 667 mg PO TIDCM [facility] Last Admin: 07/17/17 11:53 Dose: 667 mg Cyclobenzaprine HCl (Flexeril -) 10 mg PO HS [facility] Last Admin: 07/17/17 00:31 Dose: 10 mg Epoetin Cornelio (Procrit -) 20,000 unit IVPUSH ONCE ONE Stop: 07/18/17 06:01 Folic Acid (Folic Acid -) 1 mg PO DAILY [facility] Last Admin: 07/17/17 10:59 Dose: 1 mg Levothyroxine Sodium (Synthroid -) 25 mcg PO DAILY@0700 [facility] Last Admin: 07/17/17 06:07 Dose: 25 mcg Metoprolol Succinate (Toprol Xl -) 12.5 mg PO DAILY [facility] Last Admin: 07/17/17 11:53 Dose: Not Given Sevelamer Carbonate (Renvela -) 1,600 mg PO BID@0800,1730 [facility] Last Admin: 07/17/17 08:26 Dose: 1,600 mg Tamsulosin HCl (Flomax -) 0.4 mg PO DAILY@0830 [facility] Last Admin: 07/17/17 08:26 Dose: 0.4 mg - Objective Vital Signs: Vital Signs Temperature 98.4 F 07/17/17 10:00 Pulse Rate 85 07/17/17 10:00 Respiratory Rate 20 07/17/17 10:00 Blood Pressure 99/58 07/17/17 10:00 O2 Sat by Pulse Oximetry (%) 94 L 07/17/17 09:00 Constitutional: Yes: Calm, Thin Eyes: Yes: WNL HENT: Yes: WNL Neck: Yes: WNL Cardiovascular: Yes: Regular Rate and Rhythm, S1, S2 Respiratory: Yes: Diminished Gastrointestinal: Yes: Normal Bowel Sounds, Soft Extremities: Yes: WNL Edema: Yes Edema: LLE: Trace, RLE: Trace Labs: CBC, BMP 07/17/17 07:45 07/17/17 05:10 INR, PTT INR 1.22 (0.82-1.09) H 07/03/17 17:37 Problem List - Problems (1) ESRD on hemodialysis Code(s): N18.6 - END STAGE RENAL DISEASE; Z99.2 - DEPENDENCE ON RENAL DIALYSIS (2) Anemia in ESRD (end-stage renal disease) Code(s): N18.6 - END STAGE RENAL DISEASE; D63.1 - ANEMIA IN CHRONIC KIDNEY DISEASE (3) Fluid overload Code(s): E87.70 - FLUID OVERLOAD, UNSPECIFIED Qualifiers: Hypervolemia type: unspecified Qualified Code(s): E87.70 - Fluid overload, unspecified (4) Pulmonary hypertension Code(s): I27.2 - OTHER SECONDARY PULMONARY HYPERTENSION * DO NOT USE * (5) Acute dyspnea Code(s): R06.00 - DYSPNEA, UNSPECIFIED (6) Acute on chronic combined systolic and diastolic CHF, NYHA class 4 Code(s): I50.43 - ACUTE ON CHRONIC COMBINED SYSTOLIC AND DIASTOLIC HRT FAIL (7) Hypoxia Code(s): R09.02 - HYPOXEMIA (8) H/O mitral valve repair Code(s): Z98.890 - OTHER SPECIFIED POSTPROCEDURAL STATES (9) SOB (shortness of breath) Code(s): R06.02 - SHORTNESS OF BREATH (10) ESRD (end stage renal disease) on dialysis Code(s): N18.6 - END STAGE RENAL DISEASE; Z99.2 - DEPENDENCE ON RENAL DIALYSIS (11) Hypotension Code(s): I95.9 - HYPOTENSION, UNSPECIFIED (12) COPD (chronic obstructive pulmonary disease) Code(s): J44.9 - CHRONIC OBSTRUCTIVE PULMONARY DISEASE, UNSPECIFIED (13) Acute on chronic respiratory failure with hypoxemia Code(s): J96.21 - ACUTE AND CHRONIC RESPIRATORY FAILURE WITH HYPOXIA Assessment/Plan MP ACUTE HYPOXEMIC RESPIRATORY FAILURE IMPROVED CHF PULMONARY HTN PLEURAL EFFUSION TRANSUDATE S/P MVR,TVR COPD ESRD ANEMIA HYPOTENSION PLAN HD PER RENAL O2 INHALED BRONCHODILATORS MONITOR LYTES,H+H PT SHORT TERM REHAB POST DISCHARGE DR HELLER Problem List - Problems (1) ESRD (end stage renal disease) on dialysis Code(s): N18.6 - END STAGE RENAL DISEASE Z99.2 - DEPENDENCE ON RENAL DIALYSIS (2) Fluid overload Code(s): E87.70 - FLUID OVERLOAD, UNSPECIFIED Qualifiers: Hypervolemia type: unspecified Qualified Code(s): E87.70 - Fluid overload, unspecified; E87.70 - Fluid overload, unspecified (3) H/O mitral valve repair Code(s): Z98.890 - OTHER SPECIFIED POSTPROCEDURAL STATES (4) Hypotension Code(s): I95.9 - HYPOTENSION, UNSPECIFIED (5) SOB (shortness of breath) Code(s): R06.02 - SHORTNESS OF BREATH (6) ESRD on hemodialysis Code(s): N18.6 - END STAGE RENAL DISEASE Z99.2 - DEPENDENCE ON RENAL DIALYSIS (7) Acute dyspnea Code(s): R06.00 - DYSPNEA, UNSPECIFIED (8) Acute on chronic combined systolic and diastolic CHF, NYHA class 4 Code(s): I50.43 - ACUTE ON CHRONIC COMBINED SYSTOLIC AND DIASTOLIC HRT FAIL (9) Anemia in ESRD (end-stage renal disease) Code(s): N18.6 - END STAGE RENAL DISEASE D63.1 - ANEMIA IN CHRONIC KIDNEY DISEASE (10) Hypoxia Code(s): R09.02 - HYPOXEMIA (11) Pulmonary hypertension Code(s): I27.2 - OTHER SECONDARY PULMONARY HYPERTENSION * DO NOT USE * (12) COPD (chronic obstructive pulmonary disease) Code(s): J44.9 - CHRONIC OBSTRUCTIVE PULMONARY DISEASE, UNSPECIFIED (13) Acute on chronic respiratory failure with hypoxemia Code(s): J96.21 - ACUTE AND CHRONIC RESPIRATORY FAILURE WITH HYPOXIA
[2017-07-18] MEDS: ACETAMINOPHEN 325 MG TABLET (FP) PO PRN (00:22)
[2017-07-18] MEDS: ALBUTEROL SO4 2.5/IPRATROPIUM 0.5 INH SOL 3 ML VIAL.NEB. NEB PRN ×2 (06:21→19:53)
[2017-07-18] MEDS: LEVOTHYROXINE NA 25 MCG TABLET (FP) PO SCH (06:56)
[2017-07-18] MEDS ORDERED: EPOETIN ALFA 20,000 UNIT/1 ML VIAL IVPUSH ONE (07:00)
[2017-07-18 07:52] LABS: BASOPHIL 2.9 % (0-2.0); EOSINOPHIL 10.6 % (0-4.5); MCHC 31.6 g/dl (32.0-35.9); MEAN CELL VOLUME 98.2 fl (80-96); MEAN PLT VOLUME 9.7 fl (7.5-11.1); NEUTROPHILS 68.3 % (42.8-82.8); PLATELET COUNT 131 K/MM3 (134-434); RDW 19.2 % (11.9-15.9); WHITE BLOOD COUNT 4.5 K/mm3 (4.0-10.0)
[2017-07-18] MEDS: TAMSULOSIN HCL 0.4 MG CAP.ER.24H (FP) PO SCH (08:24)
[2017-07-18] MEDS: CALCIUM ACETATE 667 MG CAPSULE (FP) PO SCH ×3 (08:24→18:28)
[2017-07-18] MEDS: SEVELAMER CARBONATE 800 MG TAB (FP) PO SCH ×2 (08:24→18:29)
[2017-07-18 08:26] LABS: ALBUMIN 1.5 g/dl (3.4-5.0); ANION GAP 7 (8-16); CALCIUM 7.4 mg/dL (8.5-10.1); CO2 29 mmol/L (21-32); GLUCOSE,RANDOM 94 mg/dL (74-106); SGPT/ALT 16 U/L (12-78)
[2017-07-18 08:30] LABS: ALK PHOS 108 U/L (45-117); BILIRUBIN,TOTAL 0.3 mg/dL (0.2-1.0); CREATININE 6.5 mg/dL (0.7-1.3); SGOT/AST 23 U/L (15-37); TOT PROT 4.3 g/dl (6.4-8.2)
--- NOTE | 2017-07-18 08:34 | PN ---
Progress Note, Physician Chief Complaint: no new complaints Receiving HD - Current Medication List Current Medications: Active Medications Acetaminophen (Tylenol -) 650 mg PO Q6H PRN PRN Reason: FEVER OR PAIN Last Admin: 07/18/17 00:22 Dose: 650 mg Albuterol/Ipratropium (Duoneb -) 1 amp NEB Q4H PRN PRN Reason: SHORTNESS OF BREATH Last Admin: 07/18/17 06:21 Dose: 1 amp Aspirin (Asa -) 81 mg PO DAILY [facility] Last Admin: 07/17/17 10:59 Dose: 81 mg Calcium Acetate (Phoslo -) 667 mg PO TIDCM [facility] Last Admin: 07/18/17 08:24 Dose: 667 mg Cyclobenzaprine HCl (Flexeril -) 10 mg PO HS [facility] Last Admin: 07/17/17 21:37 Dose: 10 mg Folic Acid (Folic Acid -) 1 mg PO DAILY [facility] Last Admin: 07/17/17 10:59 Dose: 1 mg Levothyroxine Sodium (Synthroid -) 25 mcg PO DAILY@0700 [facility] Last Admin: 07/18/17 06:56 Dose: Not Given Metoprolol Succinate (Toprol Xl -) 12.5 mg PO DAILY [facility] Last Admin: 07/17/17 11:53 Dose: Not Given Sevelamer Carbonate (Renvela -) 1,600 mg PO BID@0800,1730 [facility] Last Admin: 07/18/17 08:24 Dose: 1,600 mg Tamsulosin HCl (Flomax -) 0.4 mg PO DAILY@0830 [facility] Last Admin: 07/18/17 08:24 Dose: 0.4 mg - Objective Vital Signs: Vital Signs Temperature 98.4 F 07/18/17 07:15 Pulse Rate 80 07/18/17 07:20 Respiratory Rate 18 07/18/17 07:20 Blood Pressure 94/52 07/18/17 07:20 O2 Sat by Pulse Oximetry (%) 94 L 07/17/17 22:00 Constitutional: Yes: Well Nourished, No Distress Cardiovascular: Yes: Regular Rate and Rhythm Respiratory: Yes: Other (decreased breath sounds left base) Gastrointestinal: Yes: Soft Edema: No Neurological: Yes: Alert, Oriented Labs: CBC, BMP 07/18/17 06:00 INR, PTT INR 1.22 (0.82-1.09) H 07/03/17 17:37 Laboratory Tests 07/17/17 07/18/17 05:10 06:00 WBC 4.5 Hgb 8.5 L Plt Count 131 L Sodium 143 Potassium 4.5 BUN 21 H D Creatinine 5.0 H D - ....Imaging EKG: Image Reviewed (SR, short 3 beat runs NSVT) Assessment/Plan Assessment/Plan 57 year old man with a complicated history including end-stage renal disease on dialysis, 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 SOB-volume overload due to chronic PHTN and diastolic CHF, large pleural effusion -s/p thoracentesis -will resume asa 81mg daily -Cont with volume removal with HD/UF as long as BP tolerates -echo here shows normal LV function w/ severe PHTN- chronic. ASD: -ASA 81mg daily for possible prior occular TIA, to be resumed today -outpatient f/up for further management Afib-paroxsymal -has been NSR throughout admission -not on AC due to h/o bleeding and poor compliance with outpatient f/u -Cont ASA NSVT- short runs, asymptomatic with normal LV systolic function -Toprol 12.5mg daily when tolerates No additional planned inpatient cardiac work up at this time. Pt is acceptable for discharge to rehab from cardiac standpoint.
[2017-07-18] MEDS: METOPROLOL SUCCINATE 25 MG TAB.SR.24H (FP) PO SCH (10:00)
[2017-07-18] MEDS: ASPIRIN 81 MG CHEWABLE TABLETS PO SCH ×2 (10:00→12:49)
[2017-07-18] MEDS: FOLIC ACID 1 MG TABLET (FP) PO SCH ×2 (10:00→12:49)
[2017-07-18 13:10] LABS: PHOSPHOROUS 3.1 mg/dL (2.5-4.9)
--- NOTE | 2017-07-18 16:23 | PN ---
Progress Note (short form) - Note Progress Note: PULMONARY Breathing slowly improving. No chest pain. No cough or wheezing. Last Vital Signs Temp Pulse Resp BP Pulse Ox 97.9 F 94 H 18 98/47 96 07/18/17 14:16 07/18/17 14:16 07/18/17 14:16 07/18/17 14:16 07/18/17 09:30 Gen: NAD at rest Heart: RRR Lung: decreased breath sounds at the bases Abd: soft, nontender Ext: no edema CBC, BMP 07/18/17 06:00 07/18/17 06:00 Active Medications Acetaminophen (Tylenol -) 650 mg PO Q6H PRN PRN Reason: FEVER OR PAIN Last Admin: 07/18/17 00:22 Dose: 650 mg Albuterol/Ipratropium (Duoneb -) 1 amp NEB Q4H PRN PRN Reason: SHORTNESS OF BREATH Last Admin: 07/18/17 06:21 Dose: 1 amp Aspirin (Asa -) 81 mg PO DAILY [facility] Last Admin: 07/18/17 12:49 Dose: 81 mg Calcium Acetate (Phoslo -) 667 mg PO TIDCM [facility] Last Admin: 07/18/17 12:49 Dose: 667 mg Cyclobenzaprine HCl (Flexeril -) 10 mg PO HS [facility] Last Admin: 07/17/17 21:37 Dose: 10 mg Folic Acid (Folic Acid -) 1 mg PO DAILY [facility] Last Admin: 07/18/17 12:49 Dose: 1 mg Levothyroxine Sodium (Synthroid -) 25 mcg PO DAILY@0700 [facility] Last Admin: 07/18/17 06:56 Dose: Not Given Metoprolol Succinate (Toprol Xl -) 12.5 mg PO DAILY [facility] Last Admin: 07/18/17 10:00 Dose: Not Given Sevelamer Carbonate (Renvela -) 1,600 mg PO BID@0800,1730 [facility] Last Admin: 07/18/17 08:24 Dose: 1,600 mg Tamsulosin HCl (Flomax -) 0.4 mg PO DAILY@0830 [facility] Last Admin: 07/18/17 08:24 Dose: 0.4 mg A/P Acute on Chronic Diastolic Heart Failure Pulmonary HTN ESRD on HD h/o MVR/TVR COPD Pleural Effusion s/p thoracentesis - HD per renal with ultrafiltration - inhaled bronchodilators - O2 to keep SpO2 >90% - outpt PFTs - DVT prophylaxis
--- NOTE | 2017-07-18 19:00 | PN ---
Progress Note (short form) - Note Progress Note: coverage for dr bruce ESRD on HD TTS s/p Fluid overload H/O endocarditis s/p HD earlier AVF failure R Permacath Active Medications Acetaminophen (Tylenol -) 650 mg PO Q6H PRN PRN Reason: FEVER OR PAIN Last Admin: 07/18/17 00:22 Dose: 650 mg Albuterol/Ipratropium (Duoneb -) 1 amp NEB Q4H PRN PRN Reason: SHORTNESS OF BREATH Last Admin: 07/18/17 06:21 Dose: 1 amp Aspirin (Asa -) 81 mg PO DAILY [facility] Last Admin: 07/18/17 12:49 Dose: 81 mg Calcium Acetate (Phoslo -) 667 mg PO TIDCM [facility] Last Admin: 07/18/17 18:28 Dose: 667 mg Cyclobenzaprine HCl (Flexeril -) 10 mg PO HS [facility] Last Admin: 07/17/17 21:37 Dose: 10 mg Folic Acid (Folic Acid -) 1 mg PO DAILY [facility] Last Admin: 07/18/17 12:49 Dose: 1 mg Levothyroxine Sodium (Synthroid -) 25 mcg PO DAILY@0700 [facility] Last Admin: 07/18/17 06:56 Dose: Not Given Metoprolol Succinate (Toprol Xl -) 12.5 mg PO DAILY [facility] Last Admin: 07/18/17 10:00 Dose: Not Given Sevelamer Carbonate (Renvela -) 1,600 mg PO BID@0800,1730 [facility] Last Admin: 07/18/17 18:29 Dose: 1,600 mg Tamsulosin HCl (Flomax -) 0.4 mg PO DAILY@0830 [facility] Last Admin: 07/18/17 08:24 Dose: 0.4 mg alert in NAD Last Vital Signs Temp Pulse Resp BP Pulse Ox 97.9 F 94 H 18 98/47 96 07/18/17 14:16 07/18/17 14:16 07/18/17 14:16 07/18/17 14:16 07/18/17 09:30 Lungs clear Heart RRR Abd soft nontender Ext LUE AVF scar, LUE edema CBC, BMP 07/18/17 06:00 07/18/17 06:00 IMP- ESRD on Maintenance HD Fluid overload resolved
--- NOTE | 2017-07-18 21:32 | PN ---
Progress Note, Physician History of Present Illness: No new complaints - Current Medication List Current Medications: Active Medications Acetaminophen (Tylenol -) 650 mg PO Q6H PRN PRN Reason: FEVER OR PAIN Last Admin: 07/18/17 00:22 Dose: 650 mg Albuterol/Ipratropium (Duoneb -) 1 amp NEB Q4H PRN PRN Reason: SHORTNESS OF BREATH Last Admin: 07/18/17 19:53 Dose: 1 amp Aspirin (Asa -) 81 mg PO DAILY [facility] Last Admin: 07/18/17 12:49 Dose: 81 mg Calcium Acetate (Phoslo -) 667 mg PO TIDCM [facility] Last Admin: 07/18/17 18:28 Dose: 667 mg Cyclobenzaprine HCl (Flexeril -) 10 mg PO HS [facility] Last Admin: 07/17/17 21:37 Dose: 10 mg Folic Acid (Folic Acid -) 1 mg PO DAILY [facility] Last Admin: 07/18/17 12:49 Dose: 1 mg Levothyroxine Sodium (Synthroid -) 25 mcg PO DAILY@0700 [facility] Last Admin: 07/18/17 06:56 Dose: Not Given Metoprolol Succinate (Toprol Xl -) 12.5 mg PO DAILY [facility] Last Admin: 07/18/17 10:00 Dose: Not Given Sevelamer Carbonate (Renvela -) 1,600 mg PO BID@0800,1730 [facility] Last Admin: 07/18/17 18:29 Dose: 1,600 mg Tamsulosin HCl (Flomax -) 0.4 mg PO DAILY@0830 [facility] Last Admin: 07/18/17 08:24 Dose: 0.4 mg - Objective Vital Signs: Vital Signs Temperature 97.7 F 07/18/17 18:00 Pulse Rate 87 07/18/17 18:00 Respiratory Rate 18 07/18/17 18:00 Blood Pressure 98/50 07/18/17 18:00 O2 Sat by Pulse Oximetry (%) 96 07/18/17 09:30 Constitutional: Yes: No Distress HENT: Yes: WNL Neck: Yes: WNL, Supple Cardiovascular: Yes: WNL, Regular Rate and Rhythm Respiratory: Yes: WNL, Regular, CTA Bilaterally Gastrointestinal: Yes: WNL, Normal Bowel Sounds, Soft Labs: CBC, BMP 07/18/17 06:00 07/18/17 06:00 INR, PTT INR 1.22 (0.82-1.09) H 07/03/17 17:37 Problem List - Problems (1) SOB (shortness of breath) Code(s): R06.02 - SHORTNESS OF BREATH (2) ESRD (end stage renal disease) on dialysis Code(s): N18.6 - END STAGE RENAL DISEASE; Z99.2 - DEPENDENCE ON RENAL DIALYSIS (3) Ascites Code(s): R18.8 - OTHER ASCITES (4) Chronic left shoulder pain Code(s): M25.512 - PAIN IN LEFT SHOULDER; G89.29 - OTHER CHRONIC PAIN (5) Anemia in CKD (chronic kidney disease) Code(s): N18.9 - CHRONIC KIDNEY DISEASE, UNSPECIFIED; D63.1 - ANEMIA IN CHRONIC KIDNEY DISEASE (6) Hypotension Code(s): I95.9 - HYPOTENSION, UNSPECIFIED
[2017-07-19] MEDS: ACETAMINOPHEN 325 MG TABLET (FP) PO PRN (00:39)
[2017-07-19] MEDS: CYCLOBENZAPRINE HCL 10 MG TABLET (FP) PO SCH ×2 (00:39→21:58)
[2017-07-19] MEDS: LEVOTHYROXINE NA 25 MCG TABLET (FP) PO SCH (06:03)
[2017-07-19] MEDS: ALBUTEROL SO4 2.5/IPRATROPIUM 0.5 INH SOL 3 ML VIAL.NEB. NEB PRN ×3 (06:30→22:37)
[2017-07-19] MEDS: METOPROLOL SUCCINATE 25 MG TAB.SR.24H (FP) PO SCH (09:20)
[2017-07-19] MEDS: TAMSULOSIN HCL 0.4 MG CAP.ER.24H (FP) PO SCH (09:20)
[2017-07-19] MEDS: SEVELAMER CARBONATE 800 MG TAB (FP) PO SCH ×2 (09:21→17:51)
[2017-07-19] MEDS: CALCIUM ACETATE 667 MG CAPSULE (FP) PO SCH ×3 (09:21→17:51)
[2017-07-19] MEDS: ASPIRIN 81 MG CHEWABLE TABLETS PO SCH (09:21)
[2017-07-19] MEDS: FOLIC ACID 1 MG TABLET (FP) PO SCH (09:21)
--- NOTE | 2017-07-19 09:25 | PN ---
Progress Note, Physician Chief Complaint: feeling better TELE: NSR, short runs 3-5 beats NSVT - Current Medication List Current Medications: Active Medications Acetaminophen (Tylenol -) 650 mg PO Q6H PRN PRN Reason: FEVER OR PAIN Last Admin: 07/19/17 00:39 Dose: 650 mg Albuterol/Ipratropium (Duoneb -) 1 amp NEB Q4H PRN PRN Reason: SHORTNESS OF BREATH Last Admin: 07/19/17 06:30 Dose: 1 amp Aspirin (Asa -) 81 mg PO DAILY [facility] Last Admin: 07/19/17 09:21 Dose: 81 mg Calcium Acetate (Phoslo -) 667 mg PO TIDCM [facility] Last Admin: 07/19/17 09:21 Dose: 667 mg Cyclobenzaprine HCl (Flexeril -) 10 mg PO HS [facility] Last Admin: 07/19/17 00:39 Dose: 10 mg Folic Acid (Folic Acid -) 1 mg PO DAILY [facility] Last Admin: 07/19/17 09:21 Dose: 1 mg Levothyroxine Sodium (Synthroid -) 25 mcg PO DAILY@0700 [facility] Last Admin: 07/19/17 06:03 Dose: 25 mcg Metoprolol Succinate (Toprol Xl -) 12.5 mg PO DAILY [facility] Last Admin: 07/19/17 09:20 Dose: 12.5 mg Sevelamer Carbonate (Renvela -) 1,600 mg PO BID@0800,1730 [facility] Last Admin: 07/19/17 09:21 Dose: 1,600 mg Tamsulosin HCl (Flomax -) 0.4 mg PO DAILY@0830 [facility] Last Admin: 07/19/17 09:20 Dose: 0.4 mg - Objective Vital Signs: Vital Signs Temperature 97.5 F L 07/19/17 02:06 Pulse Rate 85 07/19/17 09:24 Respiratory Rate 20 07/19/17 09:24 Blood Pressure 99/58 07/19/17 09:24 O2 Sat by Pulse Oximetry (%) 96 07/18/17 21:00 Constitutional: Yes: Well Nourished, No Distress Cardiovascular: Yes: Regular Rate and Rhythm Respiratory: Yes: Other (decreased breath sounds left base) Edema: No Neurological: Yes: Alert Labs: CBC, BMP 07/18/17 06:00 07/18/17 06:00 INR, PTT INR 1.22 (0.82-1.09) H 07/03/17 17:37 - ....Imaging EKG: Image Reviewed Assessment/Plan Assessment/Plan 57 year old man with a complicated history including end-stage renal disease on dialysis, h/o endocarditis with mitral and tricuspid valve repair with recurrent moderate to severe regurgitation and pulmonary hypertension, atrial septal defect secondary to prior mitral valve surgery, TIA involving his right eye, recent admission [facility], now admitted with sob, fatigue, hypotension. SOB-volume overload due to chronic PHTN and diastolic CHF, large pleural effusion -s/p thoracentesis -will resume asa 81mg daily -Cont with volume removal with HD/UF as long as BP tolerates -echo here shows normal LV function w/ severe PHTN- chronic. ASD: -ASA 81mg daily for possible prior occular TIA, to be resumed today -outpatient f/up for further management Afib-paroxsymal -has been NSR throughout admission -not on AC due to h/o bleeding and poor compliance with outpatient f/u -Cont ASA NSVT- short runs, asymptomatic with normal LV systolic function -Toprol 12.5mg daily when tolerates No additional planned inpatient cardiac work up at this time. Pt is acceptable for discharge to rehab from cardiac standpoint.
--- NOTE | 2017-07-19 16:32 | PN ---
Progress Note (short form) - Note Progress Note: PULMONARY Breathing continues to slowly improve. No chest pain. No cough or wheezing. Last Vital Signs Temp Pulse Resp BP Pulse Ox 97.9 F 76 18 106/79 94 L 07/19/17 14:32 07/19/17 14:32 07/19/17 14:32 07/19/17 14:32 07/19/17 09:25 Gen: NAD at rest Heart: RRR Lung: decreased breath sounds at the bases Abd: soft, nontender Ext: no edema CBC, BMP 07/18/17 06:00 07/18/17 06:00 Active Medications Acetaminophen (Tylenol -) 650 mg PO Q6H PRN PRN Reason: FEVER OR PAIN Last Admin: 07/19/17 00:39 Dose: 650 mg Albuterol/Ipratropium (Duoneb -) 1 amp NEB Q4H PRN PRN Reason: SHORTNESS OF BREATH Last Admin: 07/19/17 06:30 Dose: 1 amp Aspirin (Asa -) 81 mg PO DAILY [facility] Last Admin: 07/19/17 09:21 Dose: 81 mg Calcium Acetate (Phoslo -) 667 mg PO TIDCM [facility] Last Admin: 07/19/17 12:18 Dose: 667 mg Cyclobenzaprine HCl (Flexeril -) 10 mg PO HS [facility] Last Admin: 07/19/17 00:39 Dose: 10 mg Folic Acid (Folic Acid -) 1 mg PO DAILY [facility] Last Admin: 07/19/17 09:21 Dose: 1 mg Levothyroxine Sodium (Synthroid -) 25 mcg PO DAILY@0700 [facility] Last Admin: 07/19/17 06:03 Dose: 25 mcg Metoprolol Succinate (Toprol Xl -) 12.5 mg PO DAILY [facility] Last Admin: 07/19/17 09:20 Dose: 12.5 mg Sevelamer Carbonate (Renvela -) 1,600 mg PO BID@0800,1730 [facility] Last Admin: 07/19/17 09:21 Dose: 1,600 mg Tamsulosin HCl (Flomax -) 0.4 mg PO DAILY@0830 [facility] Last Admin: 07/19/17 09:20 Dose: 0.4 mg A/P Acute on Chronic Diastolic Heart Failure Pulmonary HTN ESRD on HD h/o MVR/TVR COPD Pleural Effusion s/p thoracentesis - HD per renal with ultrafiltration - inhaled bronchodilators - O2 to keep SpO2 >90% - outpt PFTs - DVT prophylaxis
--- NOTE | 2017-07-19 19:41 | PN ---
Progress Note (short form) - Note Progress Note: coverage for dr bruce ESRD on HD TTS s/p Fluid overload H/O endocarditis s/p HD earlier AVF failure R Permacath Current Medications Acetaminophen (Tylenol -) 650 mg PO Q6H PRN PRN Reason: FEVER OR PAIN Last Admin: 07/19/17 00:39 Dose: 650 mg Albuterol/Ipratropium (Duoneb -) 1 amp NEB Q4H PRN PRN Reason: SHORTNESS OF BREATH Last Admin: 07/19/17 19:30 Dose: 1 amp Aspirin (Asa -) 81 mg PO DAILY [facility] Last Admin: 07/19/17 09:21 Dose: 81 mg Calcium Acetate (Phoslo -) 667 mg PO TIDCM [facility] Last Admin: 07/19/17 17:51 Dose: 667 mg Cyclobenzaprine HCl (Flexeril -) 10 mg PO HS [facility] Last Admin: 07/19/17 00:39 Dose: 10 mg Folic Acid (Folic Acid -) 1 mg PO DAILY [facility] Last Admin: 07/19/17 09:21 Dose: 1 mg Levothyroxine Sodium (Synthroid -) 25 mcg PO DAILY@0700 [facility] Last Admin: 07/19/17 06:03 Dose: 25 mcg Metoprolol Succinate (Toprol Xl -) 12.5 mg PO DAILY [facility] Last Admin: 07/19/17 09:20 Dose: 12.5 mg Sevelamer Carbonate (Renvela -) 1,600 mg PO BID@0800,1730 [facility] Last Admin: 07/19/17 17:51 Dose: 1,600 mg Tamsulosin HCl (Flomax -) 0.4 mg PO DAILY@0830 [facility] Last Admin: 07/19/17 09:20 Dose: 0.4 mg alert in NAD, no new complaints Last Vital Signs Temp Pulse Resp BP Pulse Ox 97.9 F 76 18 106/79 94 L 07/19/17 14:32 07/19/17 14:32 07/19/17 14:32 07/19/17 14:32 07/19/17 09:25 Lungs clear Heart RRR Abd soft nontender Ext LUE AVF scar, LUE edema CBC, BMP 07/18/17 06:00 07/18/17 06:00 IMP- ESRD on Maintenance HD Fluid overload resolved Acute on Chronic Diastolic Heart Failure recurrent mod to severe regurg and pulm htn ASD S/P TIA rIGHT EYE Pulmonary HTN ESRD on HD h/o MVR/TVR COPD Pleural Effusion s/p thoracentesis hd ON THURSDAY
--- NOTE | 2017-07-19 22:29 | PN ---
Progress Note, Physician History of Present Illness: No new complaints - Current Medication List Current Medications: Active Medications Acetaminophen (Tylenol -) 650 mg PO Q6H PRN PRN Reason: FEVER OR PAIN Last Admin: 07/19/17 00:39 Dose: 650 mg Albuterol/Ipratropium (Duoneb -) 1 amp NEB Q4H PRN PRN Reason: SHORTNESS OF BREATH Last Admin: 07/19/17 19:30 Dose: 1 amp Aspirin (Asa -) 81 mg PO DAILY [facility] Last Admin: 07/19/17 09:21 Dose: 81 mg Calcium Acetate (Phoslo -) 667 mg PO TIDCM [facility] Last Admin: 07/19/17 17:51 Dose: 667 mg Cyclobenzaprine HCl (Flexeril -) 10 mg PO HS [facility] Last Admin: 07/19/17 21:58 Dose: Not Given Folic Acid (Folic Acid -) 1 mg PO DAILY [facility] Last Admin: 07/19/17 09:21 Dose: 1 mg Levothyroxine Sodium (Synthroid -) 25 mcg PO DAILY@0700 [facility] Last Admin: 07/19/17 06:03 Dose: 25 mcg Metoprolol Succinate (Toprol Xl -) 12.5 mg PO DAILY [facility] Last Admin: 07/19/17 09:20 Dose: 12.5 mg Sevelamer Carbonate (Renvela -) 1,600 mg PO BID@0800,1730 [facility] Last Admin: 07/19/17 17:51 Dose: 1,600 mg Tamsulosin HCl (Flomax -) 0.4 mg PO DAILY@0830 [facility] Last Admin: 07/19/17 09:20 Dose: 0.4 mg - Objective Vital Signs: Vital Signs Temperature 97.4 F L 07/19/17 18:00 Pulse Rate 77 07/19/17 18:00 Respiratory Rate 18 07/19/17 18:00 Blood Pressure 104/65 07/19/17 18:00 O2 Sat by Pulse Oximetry (%) 94 L 07/19/17 09:25 Constitutional: Yes: No Distress HENT: Yes: WNL Neck: Yes: WNL, Supple Cardiovascular: Yes: WNL, Regular Rate and Rhythm Respiratory: Yes: WNL, Regular, CTA Bilaterally Gastrointestinal: Yes: WNL, Normal Bowel Sounds, Soft Labs: CBC, BMP 07/18/17 06:00 07/18/17 06:00 INR, PTT INR 1.22 (0.82-1.09) H 07/03/17 17:37 Problem List - Problems (1) ESRD (end stage renal disease) on dialysis Assessment/Plan: Dialysis as per renal Permacath rt ant chest wall DC planning in am to STR Code(s): N18.6 - END STAGE RENAL DISEASE; Z99.2 - DEPENDENCE ON RENAL DIALYSIS (2) Chronic systolic congestive heart failure Assessment/Plan: Pt is euvolumic Code(s): I50.22 - CHRONIC SYSTOLIC (CONGESTIVE) HEART FAILURE (3) SOB (shortness of breath) Assessment/Plan: Due to pleural effusion s/p thoracentesis Stable Code(s): R06.02 - SHORTNESS OF BREATH (4) Ascites Assessment/Plan: US abd: ascites RUQ/lt pleural effusion fatty liver vs hepatocellular dz Code(s): R18.8 - OTHER ASCITES (5) Anemia in CKD (chronic kidney disease) Assessment/Plan: Due to chronic renal disease Monitor H/H Code(s): N18.9 - CHRONIC KIDNEY DISEASE, UNSPECIFIED; D63.1 - ANEMIA IN CHRONIC KIDNEY DISEASE (6) Hypotension Code(s): I95.9 - HYPOTENSION, UNSPECIFIED (7) Chronic left shoulder pain Code(s): M25.512 - PAIN IN LEFT SHOULDER; G89.29 - OTHER CHRONIC PAIN
[2017-07-19 23:19] VITALS: PULSE 85
[2017-07-20] MEDS: CYCLOBENZAPRINE HCL 10 MG TABLET (FP) PO SCH (00:10)
[2017-07-20] MEDS: LEVOTHYROXINE NA 25 MCG TABLET (FP) PO SCH (06:45)
[2017-07-20] MEDS: ALBUTEROL SO4 2.5/IPRATROPIUM 0.5 INH SOL 3 ML VIAL.NEB. NEB PRN (07:03)
[2017-07-20] MEDS: CALCIUM ACETATE 667 MG CAPSULE (FP) PO SCH (08:17)
[2017-07-20] MEDS: SEVELAMER CARBONATE 800 MG TAB (FP) PO SCH (08:18)
[2017-07-20] MEDS: TAMSULOSIN HCL 0.4 MG CAP.ER.24H (FP) PO SCH (08:18)
[2017-07-20] MEDS: ASPIRIN 81 MG CHEWABLE TABLETS PO SCH (09:50)
[2017-07-20] MEDS: FOLIC ACID 1 MG TABLET (FP) PO SCH (09:50)
[2017-07-20] MEDS: METOPROLOL SUCCINATE 25 MG TAB.SR.24H (FP) PO SCH (09:59)
--- NOTE | 2017-07-20 11:17 | PN ---
Progress Note, Physician History of Present Illness: seen today. pt sleeping. 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 no overnight events. - Current Medication List Current Medications: Active Medications Acetaminophen (Tylenol -) 650 mg PO Q6H PRN PRN Reason: FEVER OR PAIN Last Admin: 07/19/17 00:39 Dose: 650 mg Albuterol/Ipratropium (Duoneb -) 1 amp NEB Q4H PRN PRN Reason: SHORTNESS OF BREATH Last Admin: 07/20/17 07:03 Dose: 1 amp Aspirin (Asa -) 81 mg PO DAILY [facility] Last Admin: 07/20/17 09:50 Dose: 81 mg Calcium Acetate (Phoslo -) 667 mg PO TIDCM [facility] Last Admin: 07/20/17 08:17 Dose: 667 mg Cyclobenzaprine HCl (Flexeril -) 10 mg PO HS [facility] Last Admin: 07/20/17 00:10 Dose: 10 mg Folic Acid (Folic Acid -) 1 mg PO DAILY [facility] Last Admin: 07/20/17 09:50 Dose: 1 mg Levothyroxine Sodium (Synthroid -) 25 mcg PO DAILY@0700 [facility] Last Admin: 07/20/17 06:45 Dose: 25 mcg Metoprolol Succinate (Toprol Xl -) 12.5 mg PO DAILY [facility] Last Admin: 07/20/17 09:59 Dose: Not Given Sevelamer Carbonate (Renvela -) 1,600 mg PO BID@0800,1730 [facility] Last Admin: 07/20/17 08:18 Dose: 1,600 mg Tamsulosin HCl (Flomax -) 0.4 mg PO DAILY@0830 [facility] Last Admin: 07/20/17 08:18 Dose: 0.4 mg - Objective Vital Signs: Vital Signs Temperature 98.1 F 07/19/17 23:18 Pulse Rate 85 07/19/17 23:18 Respiratory Rate 20 07/19/17 23:18 Blood Pressure 113/64 07/19/17 23:18 O2 Sat by Pulse Oximetry (%) 94 L 07/19/17 09:25 Constitutional: Yes: No Distress, Calm Eyes: Yes: Conjunctiva Clear, EOM Intact Cardiovascular: Yes: Regular Rate and Rhythm, Murmur, S1, S2. No: Bradycardia, Tachycardia, Pulse Irregular, Bruit, JVD, Gallop, Rub, S3, S4, Varicosities Respiratory: Yes: Regular, Diminished. No: Rales, Rhonchi, Wheezes Gastrointestinal: Yes: Normal Bowel Sounds, Soft. No: Distention, Tenderness Edema: No Peripheral Pulses WNL: Yes Neurological: Yes: Alert, Oriented Psychiatric: Yes: Alert, Oriented Labs: CBC, BMP 07/18/17 06:00 07/18/17 06:00 INR, PTT INR 1.22 (0.82-1.09) H 07/03/17 17:37 - ....Imaging Chest X-ray: Report Reviewed, Image Reviewed EKG: Report Reviewed, Image Reviewed Other: Report Reviewed, Image Reviewed (tele-nsr, pvcs, short nsvt episodes as previously noted) Assessment/Plan 57 year old man with a complicated history including end-stage renal disease on dialysis, h/o endocarditis with mitral and tricuspid valve repair with recurrent moderate to severe regurgitation and pulmonary hypertension, atrial septal defect secondary to prior mitral valve surgery, TIA involving his right eye, recent admission [facility], now admitted with sob, fatigue, hypotension. SOB-volume overload due to chronic PHTN and diastolic CHF, large pleural effusion -s/p thoracentesis -Cont with volume removal with HD/UF as long as BP tolerates -echo here shows normal LV function w/ severe PHTN- chronic. -outpatient f/up ASD: -cont ASA 81mg daily for possible prior occular TIA -outpatient f/up for further management Afib-paroxsymal -has been NSR throughout admission -not on full AC due to h/o bleeding and poor compliance with outpatient f/u -Cont ASA NSVT- short runs, asymptomatic with normal LV systolic function -cont Toprol 12.5mg daily when tolerates No additional planned inpatient cardiac work up at this time. Pt is acceptable for discharge to rehab from cardiac standpoint.
[2017-07-20 12:10] VITALS: BP 88/59; TEMP 98.2
--- NOTE | 2017-07-20 17:37 | PN ---
Progress Note (short form) - Note Progress Note: Renal follow up for ESRD on HD Pt seen and examined at the bedside prior to disharge awake and alert no acute complaints feels better awaiting rehab placement last dialysis was Thursday Vital Signs Temperature 98.2 F 07/20/17 10:00 Pulse Rate 85 07/20/17 10:00 Respiratory Rate 20 07/20/17 10:00 Blood Pressure 88/59 07/20/17 10:00 O2 Sat by Pulse Oximetry (%) 92 L 07/20/17 09:00 Intake & Output 07/17/17 07/18/17 07/19/17 07/20/17 23:59 23:59 23:59 23:59 Intake Total 200 220 350 50 Balance 200 220 350 50 Weight 159 lb 160 lb 6.4 oz NAD awake and alert RRR + murmur Dec BS at lung bases no Le edema CBC, BMP 07/18/17 06:00 07/18/17 06:00 A/P 57 year old Gentleman with PMhx of ESRD on HD (TTS), CHF, Hx of infective endocarditis s/p MVR/TVR s/p recent admission at [facility] and at [facility] presents from PMD office with SOB, Hypoxia and low BP and admitted with CHF/Volume overload. #ESRD with CHF/Volume overload in setting of valvular heart disease no indication for dialysis today last treatment was thursday to resume HD as outpatient tomorrow #Pleural effusions s/p thoracentesis clinically improved #CKD reltaed Anemia for MARCO ANTONIO with HD today no acute indication for transfusion awaiting Rehab placement Abdirashid Guthrie DO
[2017-07-21 06:06] LABS: FIBROSIS SCORE. 0.08 (0.00-0.21); HCV ALPHA 2 MACRO CHART 158 mg/dL (110-276); HCV APOLIPOPROTEIN A1 128 mg/dL (101-178); HCV GGT 56 IU/L (0-65); HCV HAPTOGLOBIN 169 mg/dL (34-200); HCV TBIL CHART 0.1 mg/dL (0.0-1.2); NECRO.INFLAM ACT.SCORE 0.05 (0.00-0.17); NECROINFLAM. ACTIVITY GRADE A0-No activity (.)
--- NOTE | 2017-07-22 17:17 | DS ---
Physical Examination Vital Signs: Vital Signs Temperature 98.2 F 07/20/17 10:00 Pulse Rate 85 07/20/17 10:00 Respiratory Rate 20 07/20/17 10:00 Blood Pressure 88/59 07/20/17 10:00 O2 Sat by Pulse Oximetry (%) 92 L 07/20/17 09:00 Labs: CBC, BMP 07/18/17 06:00 07/18/17 06:00 Discharge Summary Reason For Visit: END-STAGE RENAL DISEASE ON HEMODIALYSIS Condition: Good - Instructions Diet, Activity, Other Instructions: Renal diet Follow up with Vascular surgeon Dr Handley Referrals: Omar Hernandez MD [Primary Care Provider] - Disposition: [facility] - Home Medications Comprehensive Discharge Medication List: Ambulatory Orders Folic Acid 1 mg PO DAILY 09/11/16 Sevelamer Carbonate [Renvela -] 1,600 mg PO BID 09/11/16 Albuterol Sulfate 0.042% [Ventolin 0.042% (Half-Strength) -] 1 amp NEB TID PRN 04/22/17 Cyclobenzaprine HCl [Flexeril -] 10 mg PO HS 04/22/17 Tamsulosin HCl 0.4 mg PO DAILY 07/03/17 Acetaminophen [Tylenol .Regular Strength -] 650 mg PO Q6H PRN tablet 07/20/17 Albuterol 2.5/Ipratropium 0.5 [Duoneb -] 1 amp NEB Q4H PRN amp 07/20/17 Aspirin [ASA -] 81 mg PO DAILY tab.chew 07/20/17 Calcium Acetate [Phoslo -] 667 mg PO TIDCM capsule 07/20/17 Levothyroxine [Synthroid -] 25 mcg PO DAILY@0700 tablet 07/20/17 Metoprolol Succinate [Toprol XL -] 12.5 mg PO DAILY tab.sr.24h 07/20/17
== END 2017-07-20 12:28 | DRG 194 ==
LOC: JER 15:00 → JERBED 21:11 → J4S 23:35
PROVIDERS: ADMIT Internal Medicine; ATTEND Internal Medicine
PROC: 5A1D70Z Performance of Urinary Filtration, Intermittent, Less than 6 Hours Per Day (ICD-10-PCS; principal; 2017-07-04)
PROC: 0W9B3ZX Drainage of Left Pleural Cavity, Percutaneous Approach, Diagnostic (ICD-10-PCS; 2017-07-14)
PROC: BB4BZZZ Ultrasonography of Pleura (ICD-10-PCS; 2017-07-14)
DX: I13.0 Hypertensive heart and chronic kidney disease with heart failure and stage 1 through stage 4 chronic kidney disease, or unspecified chronic kidney disease (principal); I50.33 Acute on chronic diastolic (congestive) heart failure; J96.21 Acute and chronic respiratory failure with hypoxia; I95.9 Hypotension, unspecified; N18.6 End stage renal disease; I27.20 Pulmonary hypertension, unspecified; J90 Pleural effusion, not elsewhere classified; R18.8 Other ascites; K76.0 Fatty (change of) liver, not elsewhere classified; J44.9 Chronic obstructive pulmonary disease, unspecified; I36.1 Nonrheumatic tricuspid (valve) insufficiency; K72.90 Hepatic failure, unspecified without coma; Z95.4 Presence of other heart-valve replacement; I34.0 Nonrheumatic mitral (valve) insufficiency; I48.0 Paroxysmal atrial fibrillation; I48.2 Chronic atrial fibrillation; D63.1 Anemia in chronic kidney disease; B19.20 Unspecified viral hepatitis C without hepatic coma; I25.10 Atherosclerotic heart disease of native coronary artery without angina pectoris; Z99.2 Dependence on renal dialysis; N40.0 Benign prostatic hyperplasia without lower urinary tract symptoms; E78.5 Hyperlipidemia, unspecified; F14.10 Cocaine abuse, uncomplicated; F12.10 Cannabis abuse, uncomplicated; F17.210 Nicotine dependence, cigarettes, uncomplicated; G89.29 Other chronic pain; M25.512 Pain in left shoulder; I47.1 Supraventricular tachycardia; Z86.73 Personal history of transient ischemic attack (TIA), and cerebral infarction without residual deficits
CPT/HCPCS: 36415; 71010-TC; 71020-TC; 71250-TC; 76700-TC; 76942; 80048; 80053; 82042; 82150; 82172; 82272; 82550; 82553; 82565; 82728; 82945; 82977; 83010; 83540; 83550; 83615; 83735; 83880; 83883; 84100; 84157; 84443; 84460; 84478; 84484; 84520; 85025; 85027; 85610; 85730; 86704; 86706; 86708; 86803; 86850; 86900; 86901; 87070; 87075; 87081; 87102; 87116; 87205; 87206; 87210; 87340; 87522; 87902; 88108; 88305-TC; 89051; 93005; 93010; 93306-TC; 94640; 97116-GP; 97161-GP; 99285-25; J0885; J1756

== ENCOUNTER 2017-08-13 11:01 | Inpatient (IN) | payer OTHER ==
[2017-08-13 11:11] VITALS: BMI 20.7
[2017-08-13 13:26] LABS: BASOPHIL 0.6 % (0-2.0); EOSINOPHIL 6.6 % (0-4.5); MCH 30.7 pg (25.7-33.7); MCHC 31.1 g/dl (32.0-35.9); MEAN CELL VOLUME 98.4 fl (80-96); MEAN PLT VOLUME 9.9 fl (7.5-11.1); NEUTROPHILS 78.9 % (42.8-82.8); PLATELET COUNT 182 K/MM3 (134-434); WHITE BLOOD COUNT 6.4 K/mm3 (4.0-10.0)
[2017-08-13 13:38] LABS: INR 1.14 (0.82-1.09); PROTHROMBIN TIME (PATIENT) 12.9 SEC (9.98-11.88)
[2017-08-13 13:41] LABS: ACTIVATED PTT 31.2 SECONDS (26.9-34.4)
--- NOTE | 2017-08-13 13:45 | PDOC ---
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 The SOB began 1 week ago, but the lightheadedness started just after HD today. Patient states that his BP was low before HD, but they proceeded to do a full session anyway. Pt notes that they removed 4L rather than his usual 2L. He does not know why. Subsequently, patient felt lightheaded and generally weak. He states that his BP at the time was measured to be 70/30. He has since had improvement in his lightheadedness. Pt additionally reports that he has been feeling progressively more SOB for the past week. He states that he has a h/o pleural effusions that have been drained in the past, and he feels like his chest is getting full again. He denies chest pain but feels like his breath is limited. He also endorses abdominal distention but denies abdominal pain/N/V. Patient denies chest pain, headache. Patient denies fever, chills, abdominal pain, nausea, vomit, diarrhea or constipation. Patient denies dysuria, frequency , urgency or hematuria. Patient denies sick contacts or recent travel. Allergies: Iodinated Contrast(Oral and IV Dye) Past Surgical History: Valve replacements X2, lung sx (h/o MRSA pleural tissue) Social History: Current everyday smoker. ETOH abuse. No recreational drug use. PCP: Dr. Gee Vascular Surgeon: Dr. Larson Biazzi Nitrator Operator: Dr. Ashley Tavarez <Mitch Osorio - Last Filed: 08/13/17 16:22> - General Chief Complaint: Blood Pressure Problem Stated Complaint: LOW BP, LAB VARIANCE Time Seen by Provider: 08/13/17 11:44 Past History <Hannah Nelson - Last Filed: 08/13/17 15:49> - Past Medical History Anemia: Yes Asthma: Yes Cancer: No Cardiac Disorders: Yes (2X VALVE REPLACEMENT) CVA: No COPD: No CHF: No Dementia: No Diabetes: No Dialysis: Yes () GI Disorders: Yes Disorders: Yes (ENLARGED PROSTATE) HTN: Yes Hypercholesterolemia: Yes Liver Disease: No Seizures: No Thyroid Disease: No - Surgical History Abdominal Surgery: No Appendectomy: No Cardiac Surgery: Yes (2 VALVES REPLACED 04/2015) Cholecystectomy: No Lung Surgery: Yes (h/o MRSA pleural tissue) - Immunization History Immunization Up to Date: No - Suicide/Smoking/Psychosocial Hx Smoking Status: Yes Smoking History: Current every day smoker Have you smoked in the past 12 months: Yes Number of Cigarettes Smoked Daily: 3 Information on smoking cessation initiated: No 'Breaking Loose' booklet given: 07/04/17 Hx Alcohol Use: No Drug/Substance Use Hx: No Substance Use Type: None Hx Substance Use Treatment: Yes (rehab, detox) <Mitch Osorio - Last Filed: 08/13/17 16:22> - Past Medical History Allergies/Adverse Reactions: Allergies Allergy/AdvReac Type Severity Reaction Status Date / Time Iodinated Contrast- Oral and Allergy Verified 08/13/17 11:04 IV Dye CONTRAST Allergy Hives Uncoded 08/13/17 11:04 Home Medications: Ambulatory Orders Folic Acid 1 mg PO DAILY 09/11/16 Sevelamer Carbonate [Renvela -] 1,600 mg PO BID 09/11/16 Albuterol Sulfate 0.042% [Ventolin 0.042% (Half-Strength) -] 1 amp NEB TID PRN 04/22/17 Cyclobenzaprine HCl [Flexeril -] 10 mg PO HS 04/22/17 Tamsulosin HCl 0.4 mg PO DAILY 07/03/17 Acetaminophen [Tylenol .Regular Strength -] 650 mg PO Q6H PRN tablet 07/20/17 Albuterol 2.5/Ipratropium 0.5 [Duoneb -] 1 amp NEB Q4H PRN amp 07/20/17 Aspirin [ASA -] 81 mg PO DAILY tab.chew 07/20/17 Calcium Acetate [Phoslo -] 667 mg PO TIDCM capsule 07/20/17 Levothyroxine [Synthroid -] 25 mcg PO DAILY@0700 tablet 07/20/17 Metoprolol Succinate [Toprol XL -] 12.5 mg PO DAILY tab.sr.24h 07/20/17 Review of Systems - Review of Systems Comments:: 08/13/17 13:44 "GENERAL/CONSTITUTIONAL: No fever or chills. No weakness. HEAD, EYES, EARS, NOSE AND THROAT: No change in vision. No ear pain or discharge. No sore throat. CARDIOVASCULAR: No chest pain RESPIRATORY: +SOB No cough, wheezing, or hemoptysis. GASTROINTESTINAL: No nausea, vomiting, diarrhea or constipation. GENITOURINARY: No dysuria, frequency, or change in urination. MUSCULOSKELETAL: No joint or muscle swelling or pain. No neck or back pain. SKIN: No rash NEUROLOGIC: No headache, vertigo, loss of consciousness, or change in strength/ sensation. ENDOCRINE: No increased thirst. No abnormal weight change. HEMATOLOGIC/LYMPHATIC: No anemia, easy bleeding, or history of blood clots. ALLERGIC/IMMUNOLOGIC: No hives or skin allergy. " <Mitch Osorio - Last Filed: 08/13/17 16:22> *Physical Exam - Vital Signs Last Vital Signs Temp Pulse Resp BP Pulse Ox 97.4 F L 87 14 99/69 95 08/13/17 11:04 08/13/17 13:29 08/13/17 13:29 08/13/17 13:29 08/13/17 13:29 <Hannah Nelson - Last Filed: 08/13/17 15:49> - Vital Signs Last Vital Signs Temp Pulse Resp BP Pulse Ox 97.4 F L 87 14 99/69 95 08/13/17 11:04 08/13/17 13:29 08/13/17 13:29 08/13/17 13:29 08/13/17 13:29 - Physical Exam Comments: 08/13/17 13:45 "GENERAL: Awake, alert, and fully oriented, in no acute distress HEAD: No signs of trauma EYES: PERRLA, EOMI, sclera anicteric, conjunctiva clear ENT: Auricles normal inspection, hearing grossly normal, nares patent, oropharynx clear without exudates. Moist mucosa NECK: Nontender, no stepoffs, Normal ROM, supple, no lymphadenopathy, JVD, or masses LUNGS: Breath sounds equal, diminished at bases bilaterally. No wheezes, and no crackles HEART: Regular rate and rhythm, normal S1 and S2, no murmurs, rubs or gallops ABDOMEN: Soft, nontender, normoactive bowel sounds. No guarding, no rebound. No masses EXTREMITIES: Normal range of motion, no edema. No clubbing or cyanosis. No cords, erythema, or tenderness NEUROLOGICAL: Cranial nerves II through XII intact. 5/5 strength and sensation in all extremities, Normal speech, normal gait SKIN: Warm, Dry, normal turgor, no rashes or lesions noted. " <Mitch Osorio - Last Filed: 08/13/17 16:22> Heart Score/ECG Review - ECG Impressions Comment:: 08/13/17 13:47 NSR, no EMILIE/STDs, inferolateral TW flattening, seen on prior, rate 74 <Mitch Osorio - Last Filed: 08/13/17 16:22> ED Treatment Course - LABORATORY CBC & Chemistry Diagram: 08/13/17 13:10 08/13/17 13:10 - ADDITIONAL ORDERS Additional order review: Laboratory Results 08/13/17 08/13/17 08/13/17 13:10 13:10 13:10 PT with INR 12.90 H INR 1.14 PTT (Actin FS) 31.2 D Lactic Acid 1.5 Magnesium 2.1 B-Natriuretic Peptide 51459.10 H 08/13/17 13:10 RBC 3.96 L D MCV 98.4 H MCHC 31.1 L RDW 19.0 H MPV 9.9 Neutrophils % 78.9 Lymphocytes % 6.3 L D Monocytes % 7.6 Eosinophils % 6.6 H Basophils % 0.6 <Hannah Nelson - Last Filed: 08/13/17 15:49> - LABORATORY CBC & Chemistry Diagram: 08/13/17 13:10 08/13/17 13:10 - ADDITIONAL ORDERS Additional order review: 08/13/17 13:10 RBC 3.96 L D MCV 98.4 H MCHC 31.1 L RDW 19.0 H MPV 9.9 Neutrophils % 78.9 Lymphocytes % 6.3 L D Monocytes % 7.6 Eosinophils % 6.6 H Basophils % 0.6 - RADIOLOGY Radiology Studies Ordered: Category Date Time Status CHEST PA & LAT [RAD] Stat Radiology 08/13/17 12:01 Ordered <Mitch Osorio - Last Filed: 08/13/17 16:22> Medical Decision Making - Medical Decision Making 08/13/17 14:37 CXR IMPRESSION: Interval increase left lower lobe consolidation and left pleural effusion does not small-to- moderate. Mild atelectatic changes versus infiltrates in the right lung base and minimal right pleural effusion again seen Reported By: Jaydon Roberts MD 08/13/17 1415 08/13/17 15:49 Dr. Gee paged via phone answering service. Awaiting call back. <Hannah Nelson - Last Filed: 08/13/17 15:49> - Medical Decision Making 08/13/17 13:47 57 M with lightheadedness and SOB. Lightheadedness began acutely after HD when pt's BP was measured to be 70/30, likely due to volume shifts. Pt now with normalizing BP and improved symptoms. SOB is concerning for recurrent pleural effusions given diminished lung sounds at bilateral bases. No evidence of PNA or other infectious process. ACS unlikely as EKG is unchanged. Pt does not appear volume overloaded and just had HD today. - Labs, trop, BNP - CXR 08/13/17 16:20 CBC,CMP WBC 6.4 K/mm3 (4.0-10.0) D 08/13/17 13:10 RBC 3.96 M/mm3 (4.00-5.60) L D 08/13/17 13:10 Hgb 12.1 GM/dL (11.7-16.9) D 08/13/17 13:10 Hct 39.0 % (35.4-49) D 08/13/17 13:10 MCV 98.4 fl (80-96) H 08/13/17 13:10 MCH 30.7 pg (25.7-33.7) 08/13/17 13:10 MCHC 31.1 g/dl (32.0-35.9) L 08/13/17 13:10 RDW 19.0 % (11.9-15.9) H 08/13/17 13:10 Plt Count 182 K/MM3 (134-434) D 08/13/17 13:10 MPV 9.9 fl (7.5-11.1) 08/13/17 13:10 Neutrophils % 78.9 % (42.8-82.8) 08/13/17 13:10 Lymphocytes % 6.3 % (8-40) L D 08/13/17 13:10 Monocytes % 7.6 % (3.8-10.2) 08/13/17 13:10 Eosinophils % 6.6 % (0-4.5) H 08/13/17 13:10 Basophils % 0.6 % (0-2.0) 08/13/17 13:10 Sodium 139 mmol/L (136-145) 08/13/17 13:10 Potassium 4.3 mmol/L (3.5-5.1) 08/13/17 13:10 Chloride 104 mmol/L (98-107) 08/13/17 13:10 Carbon Dioxide 26 mmol/L (21-32) 08/13/17 13:10 Anion Gap 9 (8-16) 08/13/17 13:10 BUN 20 mg/dL (7-18) H D 08/13/17 13:10 Creatinine 5.4 mg/dL (0.7-1.3) H 08/13/17 13:10 Creat Clearance w eGFR 11.08 (>60) 08/13/17 13:10 Random Glucose 90 mg/dL (74-106) 08/13/17 13:10 Lactic Acid 1.5 mmol/L (0.4-2.0) 08/13/17 13:10 Calcium 7.9 mg/dL (8.5-10.1) L 08/13/17 13:10 Phosphorus 4.1 mg/dL (2.5-4.9) D 08/13/17 13:10 Magnesium 2.1 mg/dL (1.8-2.4) 08/13/17 13:10 Total Bilirubin 0.3 mg/dL (0.2-1.0) 08/13/17 13:10 AST 35 U/L (15-37) D 08/13/17 13:10 ALT 28 U/L (12-78) D 08/13/17 13:10 Alkaline Phosphatase 126 U/L (45-117) H 08/13/17 13:10 Ammonia < 10 umol/L (11-32) L 08/13/17 13:10 Creatine Kinase 704 IU/L (39-308) H 08/13/17 13:10 Creatine Kinase Index 1.4 % (0.0-5.0) 08/13/17 13:10 CK-MB (CK-2) 10.332 ng/mL (0.5-3.6) H 08/13/17 13:10 Troponin I 0.05 ng/ml (0.00-0.05) 08/13/17 13:10 B-Natriuretic Peptide 58329.10 pg/ml (5-125) H 08/13/17 13:10 Total Protein 5.5 g/dl (6.4-8.2) L D 08/13/17 13:10 Albumin 1.8 g/dl (3.4-5.0) L 08/13/17 13:10 Lipase 81 U/L (73-393) 08/13/17 13:10 CXR with reaccumulation of pleural effusions as well as LLL consolidation. Will cover with Vanc/zosyn/azithro for HCAP. Discussed case with Dr. Gee, who has accepted pt for admission. <Mitch Osorio - Last Filed: 08/13/17 16:22> *DC/Admit/Observation/Transfer - Attestations Scribe Attestion: 08/13/17 14:38 Documentation prepared by Hannah Nelson, acting as medical physiologist for Mitch Osorio MD, <Hannah Nelson - Last Filed: 08/13/17 15:49> - Discharge Dispostion Admit: Yes - Attestations Physician Attestion: 08/13/17 16:22 I, Dr. Mitch Osorio MD, attest that this document has been prepared under my direction and personally reviewed by me in its entirety. I further attest, that it accurately reflects all work, treatment, procedures and medical decision -making performed by me. <Mitch Osorio - Last Filed: 08/13/17 16:22> Diagnosis at time of Disposition: HCAP (healthcare-associated pneumonia)
[2017-08-13 14:03] LABS: MAGNESIUM 2.1 mg/dL (1.8-2.4)
[2017-08-13 14:44] LABS: CPK 704 IU/L (39-308); TROPONIN I 0.05 ng/ml (0.00-0.05)
[2017-08-13 15:41] LABS: ALBUMIN 1.8 g/dl (3.4-5.0); ANION GAP 9 (8-16); BILIRUBIN,TOTAL 0.3 mg/dL (0.2-1.0); CALCIUM 7.9 mg/dL (8.5-10.1); CO2 26 mmol/L (21-32); CREATININE 5.4 mg/dL (0.7-1.3); GLUCOSE,RANDOM 90 mg/dL (74-106); PHOSPHOROUS 4.1 mg/dL (2.5-4.9); SGOT/AST 35 U/L (15-37); SGPT/ALT 28 U/L (12-78); TOT PROT 5.5 g/dl (6.4-8.2)
[2017-08-13 15:43] LABS: ALK PHOS 126 U/L (45-117)
[2017-08-13] MEDS ORDERED: VANCOMYCIN 1 GRAM (PRE-DOCKED) 1,000 MG/250 ML BAG IVPB ONE ×2 (15:49→16:15)
[2017-08-13] MEDS ORDERED: PIPERACILLIN/TAZOB 4.5 GM/100 ML PRE-DOCKED IVPB ONE (16:00)
[2017-08-13] MEDS ORDERED: PIPERACILLIN/TAZOB 4.5 GM 4.5 GM/100 ML BAG IVPB ONE (16:15)
[2017-08-13] MEDS ORDERED: AZITHROMYCIN 500 MG TABLET PO ONE (16:21)
[2017-08-13] MEDS ORDERED: AZITHROMYCIN 250 MG TABLET ONE (17:44)
[2017-08-13] MEDS ORDERED: ACETAMINOPHEN 325 MG TABLET (FP) PO PRN (23:08)
[2017-08-14] MEDS: PIPERACILLIN/TAZOB 3.375 GM 50 ML IVPB SCH ×2 (02:33→10:42)
--- NOTE | 2017-08-14 02:42 | HP ---
Admitting History and Physical - Past Medical History Cardiovascular: Yes: CHF (Chronic diastolic HF, Severe Pulm HTN), HTN, Hyperlipdemia, Mitral Insufficiency (s/p MVR (bio)), Pulmonary Hypertension, Other (Severe Tricuspid regurgitation, Endocarditis s/p TVR/MVR, recurrent bacteremia) Pulmonary: Yes: Other (PHTN) Gastrointestinal: Yes: Ascites, Constipation Hepatobiliary: Yes: Hepatitis C Renal/: Yes: Renal Failure, Hemodialysis Heme/Onc: Yes: Anemia Psych: Yes: Addictions Musculoskeletal: Yes: Bursitis (left shoulder pain) - Past Surgical History Past Surgical History: Yes: AV Fistula/Graft, Hernia Repair (11/19) - Smoking History Smoking history: Current every day smoker Have you smoked in the past 12 months: Yes Aproximately how many cigarettes per day: 3 - Alcohol/Substance Use Hx Alcohol Use: No History of Substance Use: reports: Cocaine (last use 2 weeks ago), Marijuana - Social History ADL: Independent 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 History of Recent Travel: No Home Medications - Allergies Allergies/Adverse Reactions: Allergies Allergy/AdvReac Type Severity Reaction Status Date / Time Iodinated Contrast- Oral and Allergy Verified 08/13/17 11:04 IV Dye CONTRAST Allergy Hives Uncoded 08/13/17 11:04 - Home Medications Home Medications: Ambulatory Orders Folic Acid 1 mg PO DAILY 09/11/16 Sevelamer Carbonate [Renvela -] 1,600 mg PO BID 09/11/16 Albuterol Sulfate 0.042% [Ventolin 0.042% (Half-Strength) -] 1 amp NEB TID PRN 04/22/17 Cyclobenzaprine HCl [Flexeril -] 10 mg PO HS 04/22/17 Tamsulosin HCl 0.4 mg PO DAILY 07/03/17 Acetaminophen [Tylenol .Regular Strength -] 650 mg PO Q6H PRN tablet 07/20/17 Albuterol 2.5/Ipratropium 0.5 [Duoneb -] 1 amp NEB Q4H PRN amp 07/20/17 Aspirin [ASA -] 81 mg PO DAILY tab.chew 07/20/17 Calcium Acetate [Phoslo -] 667 mg PO TIDCM capsule 07/20/17 Levothyroxine [Synthroid -] 25 mcg PO DAILY@0700 tablet 11/13/17 Metoprolol Succinate [Toprol XL -] 12.5 mg PO DAILY tab.sr.24h 07/20/17 Family Disease History - Family Disease History Family Disease History: Other: Father ( of kidney failure), Mother (muscle problems), Sister (healthy and living, HTN) Physical Examination Vital Signs: Vital Signs Temperature 97.4 F L 08/14/17 02:00 Pulse Rate 76 08/14/17 02:00 Respiratory Rate 18 08/14/17 02:00 Blood Pressure 98/54 08/14/17 02:00 O2 Sat by Pulse Oximetry (%) 98 08/13/17 22:00 Labs: CBC, BMP 08/13/17 13:10 08/13/17 13:10
[2017-08-14] MEDS: LEVOTHYROXINE NA 25 MCG TABLET (FP) PO SCH (07:17)
[2017-08-14 07:27] LABS: BASOPHIL 1.2 % (0-2.0); MCH 31.3 pg (25.7-33.7); MEAN PLT VOLUME 9.9 fl (7.5-11.1); NEUTROPHILS 74.6 % (42.8-82.8); PLATELET COUNT 156 K/MM3 (134-434); RDW 18.6 % (11.9-15.9); WHITE BLOOD COUNT 5.2 K/mm3 (4.0-10.0)
[2017-08-14 07:32] LABS: ALBUMIN 1.4 g/dl (3.4-5.0); ALK PHOS 98 U/L (45-117); ANION GAP 6 (8-16); BILIRUBIN,TOTAL 0.4 mg/dL (0.2-1.0); CALCIUM 7.5 mg/dL (8.5-10.1); CO2 29 mmol/L (21-32); CREATININE 6.9 mg/dL (0.7-1.3); GLUCOSE,RANDOM 74 mg/dL (74-106); SGOT/AST 26 U/L (15-37); SGPT/ALT 21 U/L (12-78); TOT PROT 4.3 g/dl (6.4-8.2)
[2017-08-14] MEDS: SEVELAMER CARBONATE 800 MG TAB (FP) PO SCH ×2 (08:02→17:36)
[2017-08-14] MEDS: TAMSULOSIN HCL 0.4 MG CAP.ER.24H (FP) PO SCH (08:02)
[2017-08-14] MEDS: CALCIUM ACETATE 667 MG CAPSULE (FP) PO SCH ×3 (08:02→17:36)
--- NOTE | 2017-08-14 08:14 | PN ---
Progress Note, Physician Chief Complaint: Recently discharged, now readmitted. Asked to follow up: 57 year old man with a complicated history including end-stage renal disease on dialysis, h/o endocarditis with mitral and tricuspid valve repair with recurrent moderate to severe regurgitation and pulmonary hypertension, atrial septal defect secondary to prior mitral valve surgery, TIA involving his right eye, recent admission [facility], now admitted with sob, fatigue, hypotension found to have LLL consolidation. PMH also significant for NSVT, cocaine abuse. Non-obstructive CAD. PHTN ROS: SOB and cough, non-productive. Denies fever or chills. Denies CP. + hypotension at HD. Has been evaluated for ASD closure at [place], but was deemed not a candidate for intervention due to concomitant valvular disease, poor compliance and ongoing drug use. - Current Medication List Current Medications: Active Medications Acetaminophen (Tylenol -) 650 mg PO Q6H PRN PRN Reason: FEVER OR PAIN Albuterol/Ipratropium (Duoneb -) 1 amp NEB Q4H PRN PRN Reason: SHORTNESS OF BREATH Aspirin (Asa -) 81 mg PO DAILY [facility] Calcium Acetate (Phoslo -) 667 mg PO TIDCM [facility] Last Admin: 08/14/17 08:02 Dose: 667 mg Cyclobenzaprine HCl (Flexeril -) 10 mg PO HS [facility] Folic Acid (Folic Acid -) 1 mg PO DAILY [facility] Heparin Sodium (Porcine) (Heparin -) 5,000 unit SQ BID [facility] Azithromycin 250 mg/ Dextrose 250 mls @ 250 mls/hr IVPB DAILY [facility] Piperacillin/Tazobactam/Dextrose (Zosyn 3.375gm Ivpb (Premix)) 50 mls @ 100 mls /hr IVPB Q8H-IV [facility] PRN Reason: Protocol Piperacillin/Tazobactam/Dextrose (Zosyn 3.375gm Ivpb (Premix)) 50 mls @ 100 mls /hr IVPB Q8H-IV [facility] PRN Reason: Protocol Stop: 08/14/17 10:29 Last Admin: 08/14/17 02:33 Dose: 100 mls/hr Levothyroxine Sodium (Synthroid -) 25 mcg PO DAILY@0700 [facility] Last Admin: 08/14/17 07:17 Dose: 25 mcg Metoprolol Succinate (Toprol Xl -) 12.5 mg PO DAILY [facility] Sevelamer Carbonate (Renvela -) 1,600 mg PO BID@0800,1730 [facility] Last Admin: 08/14/17 08:02 Dose: 1,600 mg Tamsulosin HCl (Flomax -) 0.4 mg PO DAILY@0830 [facility] Last Admin: 08/14/17 08:02 Dose: 0.4 mg - Objective Vital Signs: Vital Signs Temperature 98.7 F 08/14/17 06:00 Pulse Rate 74 08/14/17 06:00 Respiratory Rate 18 08/14/17 06:00 Blood Pressure 100/54 08/14/17 06:00 O2 Sat by Pulse Oximetry (%) 98 08/13/17 22:00 Constitutional: Yes: Calm Cardiovascular: Yes: Regular Rate and Rhythm (loud 2-3/6 WYATT audible throughout the precordium) Respiratory: Yes: Other (decreased breath sounds b/l, L> R) Gastrointestinal: Yes: Soft Edema: No Neurological: Yes: Alert, Oriented Labs: CBC, BMP 08/14/17 05:05 08/14/17 05:05 INR, PTT INR 1.14 (0.82-1.09) 08/13/17 13:10 Laboratory Tests 08/13/17 08/13/17 08/13/17 13:10 13:10 13:10 WBC Hgb Plt Count Potassium BUN Creatinine Ammonia < 10 L Creatine Kinase 704 H Troponin I 0.05 B-Natriuretic Peptide 24001.10 H Total Protein Albumin 08/14/17 08/14/17 05:05 05:05 WBC 5.2 Hgb 10.2 L D Plt Count 156 Potassium 4.8 BUN 26 H D Creatinine 6.9 H D Ammonia Creatine Kinase Troponin I B-Natriuretic Peptide Total Protein 4.3 L D Albumin 1.4 L D - ....Imaging Chest X-ray: Report Reviewed, Image Reviewed (Interval increase LLL consolidation) EKG: Image Reviewed (NSR with Poor R wave progression, cannot rule out old anterior FL) Assessment/Plan IMP: LLL PNA ASD PAF NSVT REC: 1. PNA: as per PMD, Pulmonary Consult pending. 2. ASD: -s/p MVR/TVR due to trans-septal puncture -Evaluated at [facility] [place] for closure after occular TIA, deemed not a candidate for closure (Dr. Washington and Dr. Mc): ongoing cocaine use, poor compliance and concomitant valve dz -Cont ASA -Repeat echo 3. PAF: -Cont Toprol, not candidate for full AC due to poor compliance, drug use -Currently in Sinus 4. NSVT: -EF previously normal -Cors non-obstx on preop cath -Keep K and Mg normalized -Cont Low dose Toprol
[2017-08-14] MEDS ORDERED: AZITHROMYCIN IVPB 250 MG in DEXTROSE 5%-WATER - 250 ML IVPB SCH (10:00)
[2017-08-14] MEDS: HEPARIN NA (PORCINE) 5,000 UNITS/ML 1ML VIAL SQ SCH ×2 (10:36→21:29)
[2017-08-14] MEDS: ASPIRIN 81 MG CHEWABLE TABLETS PO SCH (10:42)
[2017-08-14] MEDS: METOPROLOL SUCCINATE 25 MG TAB.SR.24H (FP) PO SCH (10:42)
[2017-08-14] MEDS: FOLIC ACID 1 MG TABLET (FP) PO SCH (10:42)
--- NOTE | 2017-08-14 10:48 | EKG ---
Test Reason : Blood Pressure : / mmHG Vent. Rate : 074 BPM Atrial Rate : 074 BPM P-R Int : 176 ms QRS Dur : 082 ms QT Int : 418 ms P-R-T Axes : 047 161 -59 degrees QTc Int : 463 ms SINUS RHYTHM WITH PREMATURE ATRIAL COMPLEXES RIGHT AXIS DEVIATION RIGHT VENTRICULAR HYPERTROPHY POOR R WAVE PROGRESSION CANNOT RULE OUT ANTERIOR INFARCT , AGE UNDETERMINED ABNORMAL ECG Confirmed by MD VIRGIL, BENJI ([id number]) on 08/14/2017 10:47:34 AM Referred By: Confirmed By:BENJI HERMAN MD
[2017-08-14] MEDS ORDERED: traMADol HCL 50 MG TABLET PO PRN (11:12)
--- NOTE | 2017-08-14 11:52 | CONSULT ---
Consultation: REQUESTING PROVIDER: CONSULT REQUEST: We have been asked to medically evaluate this patient for dyspnea/PNA. HISTORY OF PRESENT ILLNESS: 57M w/ hx of COPD on home O2, CHF, pleural effusions requiring drainage, ESRD on HD (//), pulmonary HTN, endocarditis, MR and TR s/p MV and TV repair, HTN , HLD, anemia, ASD, and TIA presenting with one week of SOB and one day of lightheadedness. Per pt, his SOB has been worse than his baseline for the last week, progressive, and accompanied by chest pressure, wheezing, and mild intermittent dry cough. He believes the lightheadedness is due to his low BP before his last HD session. He has chronic rhinorrhea. Pt denies fevers, chills , recent travel, sick contacts, preceding viral symptoms, palpitations, chest pain, n/v/d/c, and abdominal pain. Pt does not make urine. Pt reports medication adherence. He is an active smoker, used to smoke 1PPD for 10 years, currently smoking 3 cigarettes per day. He quit alcohol 10 years ago and denies drug use. He lives at home with his niece. Pt was last discharged from the hospital on 07/22 after presenting with SOB, weakness, and low BP. REVIEW OF SYSTEMS: CONSTITUTIONAL: Absent: fever, chills, diaphoresis, generalized weakness, malaise, loss of appetite, weight change HEENT: Absent: nasal congestion, throat pain, throat swelling, difficulty swallowing, mouth swelling, ear pain, eye pain, visual changes present: rhinorrhea CARDIOVASCULAR: Absent: chest pain, syncope, palpitations, irregular heart rate present: lightheadedness,peripheral edema RESPIRATORY: Absent: orthopnea, stridor, hemoptysis present: SOB, wheezing GASTROINTESTINAL: Absent: abdominal pain, abdominal distension, nausea, vomiting, diarrhea, constipation, melena, hematochezia GENITOURINARY: Absent: dysuria, frequency, urgency, hesitancy, hematuria, flank pain, genital pain MUSCULOSKELETAL: Absent: myalgia, arthralgia, joint swelling, back pain, neck pain SKIN: Absent: rash, itching, pallor HEMATOLOGIC/IMMUNOLOGIC: Absent: easy bleeding, easy bruising, lymphadenopathy, frequent infections ENDOCRINE: Absent: unexplained weight gain, unexplained weight loss, heat intolerance, cold intolerance NEUROLOGIC: Absent: headache, focal weakness or paresthesias, dizziness, unsteady gait, seizure, mental status changes, bladder or bowel incontinence PSYCHIATRIC: Absent: anxiety, depression, suicidal or homicidal ideation, hallucinations. PHYSICAL EXAMINATION Vital Signs - 24 hr 08/13/17 08/13/17 08/13/17 13:29 16:28 21:20 Temperature Pulse Rate Pulse Rate [ 87 81 83 Apical] Respiratory 14 16 16 Rate Blood Pressure Blood Pressure 99/69 109/59 121/67 [Right Arm] O2 Sat by Pulse 95 99 98 Oximetry (%) 08/13/17 08/13/17 08/14/17 21:53 22:00 02:00 Temperature 99.0 F 99.0 F 97.4 F L Pulse Rate 75 75 76 Pulse Rate [ Apical] Respiratory 18 18 18 Rate Blood Pressure 108/66 108/66 98/54 Blood Pressure [Right Arm] O2 Sat by Pulse 98 98 Oximetry (%) 08/14/17 08/14/17 08/14/17 06:00 09:00 10:57 Temperature 98.7 F 97.9 F Pulse Rate 74 87 Pulse Rate [ Apical] Respiratory 18 18 18 Rate Blood Pressure 100/54 109/78 Blood Pressure [Right Arm] O2 Sat by Pulse 94 L Oximetry (%) GENERAL: middle aged male, sitting in bed, awake, alert, and fully oriented, in no acute distress. HEENT: NC, AT, EOMI NECK: Normal range of motion, supple without lymphadenopathy, JVD, or masses. LUNGS: scattered rales HEART: Regular rate and rhythm, normal S1 and S2 without murmur, rub or gallop. ABDOMEN: reducible umbilical hernia, soft, NT MUSCULOSKELETAL: b/l 2+ LE edema NEUROLOGICAL: Cranial nerves II-XII intact. Normal speech. PSYCHIATRIC: Cooperative. Good eye contact. Appropriate mood and affect. SKIN: Warm, dry, normal turgor, no rashes or lesions noted. Laboratory Results - last 24 hr 08/13/17 08/13/17 08/13/17 13:10 13:10 13:10 WBC 6.4 D RBC 3.96 L D Hgb 12.1 D Hct 39.0 D MCV 98.4 H MCH 30.7 MCHC 31.1 L RDW 19.0 H Plt Count 182 D MPV 9.9 Neutrophils % 78.9 Lymphocytes % 6.3 L D Monocytes % 7.6 Eosinophils % 6.6 H Basophils % 0.6 PT with INR INR PTT (Actin FS) Sodium 139 Potassium 4.3 Chloride 104 Carbon Dioxide 26 Anion Gap 9 BUN 20 H D Creatinine 5.4 H Creat Clearance w eGFR 11.08 Random Glucose 90 Lactic Acid Calcium 7.9 L Phosphorus 4.1 D Magnesium Cancelled 2.1 Total Bilirubin 0.3 AST 35 D ALT 28 D Alkaline Phosphatase 126 H Ammonia Creatine Kinase 704 H Creatine Kinase Index 1.4 CK-MB (CK-2) 10.332 H Troponin I 0.05 B-Natriuretic Peptide Cancelled 86841.10 H Total Protein 5.5 L D Albumin 1.8 L Lipase 81 08/13/17 08/13/17 08/13/17 13:10 13:10 13:10 WBC RBC Hgb Hct MCV MCH MCHC RDW Plt Count MPV Neutrophils % Lymphocytes % Monocytes % Eosinophils % Basophils % PT with INR 12.90 H INR 1.14 PTT (Actin FS) 31.2 D Sodium Cancelled Potassium Cancelled Chloride Cancelled Carbon Dioxide Cancelled Anion Gap Cancelled BUN Cancelled Creatinine Cancelled Creat Clearance w eGFR Cancelled Random Glucose Cancelled Lactic Acid Calcium Cancelled Phosphorus Cancelled Magnesium Total Bilirubin Cancelled AST Cancelled ALT Cancelled Alkaline Phosphatase Cancelled Ammonia < 10 L Creatine Kinase Creatine Kinase Index CK-MB (CK-2) Troponin I B-Natriuretic Peptide Total Protein Cancelled Albumin Cancelled Lipase Cancelled 08/13/17 08/14/17 08/14/17 13:10 05:05 05:05 WBC 5.2 RBC 3.25 L Hgb 10.2 L D Hct 31.9 L D MCV 98.0 H MCH 31.3 MCHC 32.0 RDW 18.6 H Plt Count 156 MPV 9.9 Neutrophils % 74.6 Lymphocytes % 6.8 L Monocytes % 8.4 Eosinophils % 9.0 H Basophils % 1.2 PT with INR INR PTT (Actin FS) Sodium 139 Potassium 4.8 Chloride 104 Carbon Dioxide 29 Anion Gap 6 L BUN 26 H D Creatinine 6.9 H D Creat Clearance w eGFR 8.35 Random Glucose 74 Lactic Acid 1.5 Calcium 7.5 L Phosphorus Magnesium Total Bilirubin 0.4 D AST 26 D ALT 21 D Alkaline Phosphatase 98 D Ammonia Creatine Kinase Creatine Kinase Index CK-MB (CK-2) Troponin I B-Natriuretic Peptide Total Protein 4.3 L D Albumin 1.4 L D Lipase Active Medications Generic Name Dose Route Start Last Admin Trade Name Freq PRN Reason Stop Dose Admin Acetaminophen 650 mg 08/13/17 23:08 Tylenol - PO Q6H PRN FEVER OR PAIN Albuterol/Ipratropium 1 amp 08/13/17 23:08 Duoneb - NEB Q4H PRN SHORTNESS OF BREATH Aspirin 81 mg 08/14/17 10:00 08/14/17 10:42 Asa - PO 81 mg DAILY MONAE Administration Calcium Acetate 667 mg 08/14/17 08:00 08/14/17 08:02 Phoslo - PO 667 mg TIDCM MONAE Administration Cyclobenzaprine HCl 10 mg 08/14/17 22:00 Flexeril - PO HS MONAE Folic Acid 1 mg 08/14/17 10:00 08/14/17 10:42 Folic Acid - PO 1 mg DAILY MONAE Administration Heparin Sodium (Porcine) 5,000 unit 08/14/17 10:00 08/14/17 10:36 Heparin - SQ Not Given BID [facility] Azithromycin 250 mg/ Dextrose 250 mls @ 250 mls/hr 08/14/17 10:00 08/14/17 10 :42 IVPB 250 mls/hr DAILY MONAE Administration Piperacillin/Tazobactam/Dextrose 50 mls @ 100 mls/hr 08/14/17 18:00 Zosyn 3.375gm Ivpb (Premix) IVPB Q8H-IV [facility] Protocol Levothyroxine Sodium 25 mcg 08/14/17 07:00 08/14/17 07:17 Synthroid - PO 25 mcg DAILY@0700 MONAE Administration Metoprolol Succinate 12.5 mg 08/14/17 10:00 08/14/17 10:42 Toprol Xl - PO 12.5 mg DAILY MONAE Administration Sevelamer Carbonate 1,600 mg 08/14/17 08:00 08/14/17 08:02 Renvela - PO 1,600 mg BID@0800,1730 MONAE Administration Tamsulosin HCl 0.4 mg 08/14/17 08:30 08/14/17 08:02 Flomax - PO 0.4 mg DAILY@0830 MONAE Administration Tramadol HCl 50 mg 08/14/17 11:12 Ultram - PO Q12H PRN CXR: interval increased LLL consolidation and L effusion with mild atelectatic changes vs. infiltrates in R lung base and minimal right-sided effusion. ASSESSMENT/PLAN: 57M w/ hx of COPD on home O2, CHF, pleural effusions requiring drainage, ESRD on HD (//), pulmonary HTN, endocarditis, MR and TR s/p MV and TV repair, HTN , HLD, anemia, ASD, and TIA presenting with one week of SOB and one day of lightheadedness. #acute SOB -low suspicion for PNA given lack of fever and leukocytosis. Abx per ID. -likely 2/2 interval increase in pleural effusion and atelectasis -f/u CT to evaluate effusion vs. infiltrate -BD -solumedrol -incentive spirometry -HD Rest of care per medical team Plan discussed with attending, Dr. Zepeda. Dispo: We will continue to follow the patient. Thank you for this consultative opportunity. -Colin Hernandez MD PGY1 Pulmonology Team Visit type - Emergency Visit Emergency Visit: Yes ED Registration Date: 08/13/17 Care time: The patient presented to the Emergency Department on the above date and was hospitalized for further evaluation of their emergent condition. - New Patient This patient is new to me today: Yes Date on this admission: 08/14/17 - Critical Care Critical Care patient: No
--- NOTE | 2017-08-14 13:45 | CON.NEP ---
Consult Consult Specialty:: Nephrology Referred by:: Dr. Gee Reason for Consultation:: ESRD on HD. PNA - History of Present Illness Chief Complaint: SOB, weakness, Low BP History of Present Illness: This is a 57 year old Gentleman with PMhx of ESRD on HD (TTS), CHF, Valvular heart diesase s/p MV/TV repeair, Hx of Hypertension, ASD, TIA who preented with complaints of weakness and SOB and found to have PNA and low BP. Pt s/p dialysis yesterday w/o complication. He reports feeling lightheaded s/p prior dialysis treatments but was ok yesterday. Denies any fevers, chills, Abd pain, SOB, Chest pain, N/V/D at the present time. No sick contacts. - History Source History Provided By: Patient Limitations to Obtaining History: No Limitations - Past Medical History Cardio/Vascular: Yes: CHF (Chronic diastolic HF, Severe Pulm HTN), HTN, Hyperlipdemia, Mitral Insufficiency (s/p MVR (bio)), Pulmonary Hypertension, Other (Severe Tricuspid regurgitation, Endocarditis s/p TVR/MVR, recurrent bacteremia) Pulmonary: Yes: Other (PHTN) Gastrointestinal: Yes: Ascites, Constipation Hepatobiliary: Yes: Hepatitis C Renal/: Yes: Renal Failure, Hemodialysis Psych: Yes: Addictions Musculoskeletal: Yes: Bursitis (left shoulder pain) - Past Surgical History Past Surgical History: Yes: AV Fistula/Graft, Hernia Repair (11/19) - Alcohol/Substance Use Hx Alcohol Use: No History of Substance Use: reports: Cocaine (last use 2 weeks ago), Marijuana - Smoking History Smoking history: Current every day smoker Have you smoked in the past 12 months: Yes Aproximately how many cigarettes per day: 3 - Social History ADL: Independent 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 History of Recent Travel: No Home Medications - Allergies Allergies/Adverse Reactions: Allergies Allergy/AdvReac Type Severity Reaction Status Date / Time Iodinated Contrast- Oral and Allergy Verified 08/13/17 11:04 IV Dye CONTRAST Allergy Hives Uncoded 08/13/17 11:04 - Home Medications Home Medications: Ambulatory Orders Folic Acid 1 mg PO DAILY 09/11/16 Sevelamer Carbonate [Renvela -] 1,600 mg PO BID 09/11/16 Albuterol Sulfate 0.042% [Ventolin 0.042% (Half-Strength) -] 1 amp NEB TID PRN 04/22/17 Cyclobenzaprine HCl [Flexeril -] 10 mg PO HS 04/22/17 Tamsulosin HCl 0.4 mg PO DAILY 07/03/17 Acetaminophen [Tylenol .Regular Strength -] 650 mg PO Q6H PRN tablet 07/20/17 Albuterol 2.5/Ipratropium 0.5 [Duoneb -] 1 amp NEB Q4H PRN amp 07/20/17 Aspirin [ASA -] 81 mg PO DAILY tab.chew 07/20/17 Calcium Acetate [Phoslo -] 667 mg PO TIDCM capsule 07/20/17 Levothyroxine [Synthroid -] 25 mcg PO DAILY@0700 tablet 07/20/17 Metoprolol Succinate [Toprol XL -] 12.5 mg PO DAILY tab.sr.24h 07/20/17 Family Disease History - Family Disease History Family Disease History: Other: Father ( of kidney failure), Mother (muscle problems), Sister (healthy and living, HTN) Review of Systems - Review of Systems Constitutional: reports: Lethargy, Weakness Eyes: reports: No Symptoms HENT: reports: No Symptoms Neck: reports: No Symptoms Cardiovascular: reports: Shortness of Breath. denies: Chest Pain, Edema, Palpitations Respiratory: reports: Cough, SOB, SOB on Exertion. denies: Orthopnea, PND Gastrointestinal: reports: No Symptoms Genitourinary: denies: Dysuria, Flank Pain Musculoskeletal: reports: No Symptoms Integumentary: reports: No Symptoms Neurological: reports: No Symptoms Endocrine: reports: No Symptoms Nephrology Consult - Height Height: 6 ft 2 in - Weight Weight: 73.482 kg - BMI Body Mass Index (BMI): 20.7 - Lab Results CBC,BMP: CBC, BMP 08/14/17 05:05 08/14/17 05:05 Anion Gap: Anion Gap Anion Gap 6 (8-16) L 08/14/17 05:05 - Imaging Chest X-ray: Report Reviewed - Physical Examination Vital Signs: Vital Signs Temperature 97.9 F 08/14/17 10:57 Pulse Rate 87 08/14/17 10:57 Respiratory Rate 18 08/14/17 10:57 Blood Pressure 109/78 08/14/17 10:57 O2 Sat by Pulse Oximetry (%) 94 L 08/14/17 09:00 Constitutional: Yes: Well Nourished, No Distress Eyes: Yes: Conjunctiva Clear HENT: Yes: Atraumatic, Normocephalic Neck: Yes: Supple Cardiovascular: Yes: Regular Rate and Rhythm, S1, S2. No: Murmur, Rub Respiratory: Yes: Regular, CTA Bilaterally. No: Rales, Rhonchi, SOB Gastrointestinal: Yes: Normal Bowel Sounds, Soft. No: Tenderness Renal/: No: Bladder Distention, CVA Tenderness - Left, CVA Tenderness - Right Access for Hemodialysis: AV Fistula Extremities: No: Cold, Cool, Cyanosis Edema: Yes Edema: LLE: 1+, RLE: 1+ Neurological: Yes: Alert, Oriented Assessment/Plan 57 year old Gentleman with PMhx of ESRD on HD (TTS), CHF, Valvular heart diesase s/p MV/TV repeair, Hx of Hypertension, ASD, TIA who preented with complaints of weakness and SOB and found to have PNA and low BP #PNA continue Abx as per primary will check Vanco levels pre-hd and dose after if needed #Hypotension chronic in nature, hold antihypertensives #ESRD on HD s/p dialysis yesterday, no acute indication for treatment today next HD tomorrow UF as tolerated #CHF Cardiology following #CKD related Anemia Goal Hgb > 10 will give MARCO ANTONIO as needed Thank you Abdirashid Guthrie DO
--- NOTE | 2017-08-14 15:48 | PN ---
Teaching Attending Note Name of Resident: Colin Hernandez ATTENDING PHYSICIAN STATEMENT I saw and evaluated the patient. I reviewed the resident's note and discussed the case with the resident. I agree with the resident's findings and plan as documented. PULMONARY` IMP DYSPNEA ?CHF COPD LEFT PLEURAL EFFUSION PREVIOUS CHEMISTRIES C/W TRANSUDATE DOUBT PNEUMONIA PULMONARY HTN VALVULAR HD ESRD ON HD PLAN HD PER RENAL O2 INHALED BRONCHODILATORS ANTIBIOTICS PER ID DR HELLER Problem List - Problems (1) Acute dyspnea Code(s): R06.00 - DYSPNEA, UNSPECIFIED (2) Acute on chronic combined systolic and diastolic CHF, NYHA class 4 Code(s): I50.43 - ACUTE ON CHRONIC COMBINED SYSTOLIC AND DIASTOLIC HRT FAIL (3) Anemia in CKD (chronic kidney disease) Code(s): N18.9 - CHRONIC KIDNEY DISEASE, UNSPECIFIED; D63.1 - ANEMIA IN CHRONIC KIDNEY DISEASE (4) CHF (congestive heart failure) Code(s): I50.9 - HEART FAILURE, UNSPECIFIED (5) COPD (chronic obstructive pulmonary disease) Code(s): J44.9 - CHRONIC OBSTRUCTIVE PULMONARY DISEASE, UNSPECIFIED (6) Dyspnea Code(s): R06.00 - DYSPNEA, UNSPECIFIED (7) ESRD (end stage renal disease) on dialysis Code(s): N18.6 - END STAGE RENAL DISEASE; Z99.2 - DEPENDENCE ON RENAL DIALYSIS (8) Fluid overload Code(s): E87.70 - FLUID OVERLOAD, UNSPECIFIED Qualifiers: Hypervolemia type: unspecified Qualified Code(s): E87.70 - Fluid overload, unspecified (9) H/O mitral valve repair Code(s): Z98.890 - OTHER SPECIFIED POSTPROCEDURAL STATES (10) Hypotension Code(s): I95.9 - HYPOTENSION, UNSPECIFIED (11) SOB (shortness of breath) Code(s): R06.02 - SHORTNESS OF BREATH (12) Mitral regurgitation Code(s): I34.0 - NONRHEUMATIC MITRAL (VALVE) INSUFFICIENCY Qualifiers: Cardiac valve disease etiology: nonrheumatic Qualified Code(s): I34.0 - Nonrheumatic mitral (valve) insufficiency (13) Pleural effusion Code(s): J90 - PLEURAL EFFUSION, NOT ELSEWHERE CLASSIFIED (14) Pulmonary hypertension Code(s): I27.2 - OTHER SECONDARY PULMONARY HYPERTENSION * DO NOT USE *
--- NOTE | 2017-08-14 16:48 | PN ---
Progress Note (short form) - Note Progress Note: ID consult dictated asked to see by DR Zepeda patient is a very poor historian- didnot permit a full exam wouldnt lay flat on his back, is laying on his left side history of MVR/TV repari 2014 history of MRSA bacteremia 06/2016 recent admission in July with large effusion that was tapped-transudate no fevers felt light headed and came to ED has chronic low BP reports permacath was changed about a month ago for infection? no fevers or chills no cough no sob he received vanco/zosyn/zithromx for possible pneumonia no cultures were sent d/w dr zepeda and dr bruce we will hold further antibiotics get chest ct to see if there is an infiltrate or just effusion/atelectasis check with HD to see if he has any positive cultures draw blood cultures difficult history and exam due to lack of patient participation Problem List - Problems (1) Pleural effusion Code(s): J90 - PLEURAL EFFUSION, NOT ELSEWHERE CLASSIFIED (2) H/O mitral valve repair Code(s): Z98.890 - OTHER SPECIFIED POSTPROCEDURAL STATES (4) ESRD (end stage renal disease) on dialysis Code(s): N18.6 - END STAGE RENAL DISEASE; Z99.2 - DEPENDENCE ON RENAL DIALYSIS
[2017-08-14] MEDS ORDERED: PIPERACILLIN/TAZOB 2.25 GM 2.25 GM in DEXTROSE 5%-WATER - 50 ML IVPB SCH (18:00)
[2017-08-14] MEDS ORDERED: PIPERACILLIN/TAZOB 3.375 GM 50 ML IVPB SCH (18:00)
--- NOTE | 2017-08-14 21:26 | CONS ---
INFECTIOUS DISEASE CONSULTATION DATE OF CONSULTATION: DATE OF DICTATION: 08/14/2017 REQUESTING PHYSICIAN: Eleno Zepeda MD HISTORY OF PRESENT ILLNESS: We last saw this gentleman in November. At that time, he apparently completed a 4-week course of vancomycin per his providers at [facility]; it is unclear what it was for. 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 He has a history of mitral and tricuspid valve repairs. They are bioprosthetic. He is not on any Coumadin. He has a history of end-stage renal disease on dialysis. He was admitted for weakness. He has chronic hypotension. He had dialysis where he reported they removed more fluid off than usual. Apparently, he is quite noncompliant with his fluid restriction, and he presented to the emergency room with these complaints. He had a chest x-ray done that showed a left-sided pleural effusion which he had in July when he was admitted here. He had a thoracentesis at that time, that showed a transudate. He was given vancomycin, Zithromax, and Zosyn in the emergency room. No cultures were sent. I am asked to see him for further evaluation at the request of the shellfish shucker who is not convinced he has a pneumonia. The patient denies any cough. He denies any fevers and chills. He is resting comfortably. He is laying on his right side, and he refuses to turn or cooperate with the exam, though he is willing to talk to me. He denies fevers and chills, nausea, vomiting, diarrhea, or dysuria. PAST MEDICAL HISTORY: Notable for COPD on home oxygen, CHF, pleural effusions on the left side which was tapped in July, showing a transudate. He has a history of end-stage renal disease on dialysis via a PermCath. He reports the PermCath was recently changed a month ago. Question is whether this was due to infection or not. He has an AV fistula in his left arm, that is not being used. He has a history of pulmonary hypertension, endocarditis, mitral repair and tricuspid repair, hypertension, hyperlipidemia, anemia. He has a patent ASD, and he has a history of TIA. He was last discharged from the hospital on July 22, after presenting at that time with shortness of breath. There is no history of any travel. He has had no sick contacts. He lives at home. He has a home health aide. He is an active smoker, currently smokes 3 cigarettes a day. ALLERGIES: He is allergic to IV DYE. MEDICATIONS AT HOME: Include tamsulosin, Renvela, Toprol, Synthroid, folic acid, Flexeril, PhosLo, aspirin, nebulizer treatment. SOCIAL HISTORY: He lives at home. He has a home health aide. REVIEW OF SYSTEMS: As per HPI. PHYSICAL EXAMINATION: Is extremely limited as the patient is refusing to turn from his side. Vital Signs: Temperature is 98.9, pulse 87, blood pressure is 95/64, respiratory rate is 18 and non-labored. He weighs 162 pounds. HEENT: He is normocephalic. His eyes are anicteric. He has no thrush. Neck: Supple. Lungs: Crackles at the left base. Heart: Regular rate and rhythm. He has a 2/6 systolic murmur. Abdomen: Soft. Extremities: I cannot really assess his legs. He appears to have edema of the legs. Musculoskeletal: He has a PermCath; the site of which is nontender. He has an AV fistula with a palpable thrill in his left arm. LABORATORY DATA: Notable for white count of 5.2, hemoglobin 10.2, platelets are 156. BUN is 26 and creatinine 6.9. No cultures were sent. Chest x-ray shows a left pleural effusion with possible atelectasis. In summary, this is a 57-year-old man, very poor historian, limited exam due to patient's cooperation, history of mitral valve and tricuspid valve repair, history of methicillin-resistant Staphylococcus aureus bacteremia in 2015, recent admission in July with large effusion that was tapped, transudate, no fevers, admitted with low blood pressure after dialysis. He has chronic low blood pressure. Reports the PermCath was changed about a month ago. It is unclear why, possibilities include infection. No fevers or chills. No cough or shortness of breath. He received vancomycin, Zosyn, and Zithromax for possible pneumonia. No cultures were sent. Discussed the case at length with Dr. Zepeda and Dr. Guthrie. We will hold further antibiotics at this time, get chest CT to see if there is an infiltrate or if it is just an effusion, which he has had in the past. We will check with hemodialysis which Dr. Guthrie will do to see if he had any positive blood cultures or if, indeed, did he really have a recent PermCath change. Patient is an extremely poor historian. Would draw blood cultures at this time. Further recommendations to follow. UMBERTO HUGHES M.D. [id number]
[2017-08-14] MEDS: CYCLOBENZAPRINE HCL 10 MG TABLET (FP) PO SCH (21:28)
[2017-08-14] MEDS ORDERED: PIPERACILLIN/TAZOB 2.25 GM/50 ML PREMIX BAG IVPB SCH (22:00)
[2017-08-15] MEDS ORDERED: VANCOMYCIN 1,000 MG in DEXTROSE 5%-WATER - 250 ML IVPB ONE (06:00)
[2017-08-15] MEDS: LEVOTHYROXINE NA 25 MCG TABLET (FP) PO SCH (06:24)
[2017-08-15] MEDS: SEVELAMER CARBONATE 800 MG TAB (FP) PO SCH ×2 (08:09→16:34)
[2017-08-15] MEDS: TAMSULOSIN HCL 0.4 MG CAP.ER.24H (FP) PO SCH (08:09)
[2017-08-15] MEDS: CALCIUM ACETATE 667 MG CAPSULE (FP) PO SCH ×3 (08:09→16:33)
--- NOTE | 2017-08-15 09:09 | PN ---
Progress Note, Physician Chief Complaint: Pt A&Ox3; no chest pain or dyspnea; c/o occasional and LE abdominal discomfort. 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 The SOB began 1 week ago, but the lightheadedness started just after HD today. Patient states that his BP was low before HD, but they proceeded to do a full session anyway. Pt notes that they removed 4L rather than his usual 2L. He does not know why. Subsequently, patient felt lightheaded and generally weak. He states that his BP at the time was measured to be 70/30. He has since had improvement in his lightheadedness. Pt additionally reports that he has been feeling progressively more SOB for the past week. He states that he has a h/o pleural effusions that have been drained in the past, and he feels like his chest is getting full again. He denies chest pain but feels like his breath is limited. He also endorses abdominal distention but denies abdominal pain/N/V. PMH also significant for NSVT, cocaine abuse. Non-obstructive CAD. ROS: SOB and cough, non-productive. Denies fever or chills. Denies CP. + hypotension at HD. Has been evaluated for ASD closure at [place], but was deemed not a candidate for intervention due to concomitant valvular disease, poor compliance and ongoing drug use. - Current Medication List Current Medications: Active Medications Acetaminophen (Tylenol -) 650 mg PO Q6H PRN PRN Reason: FEVER OR PAIN Albuterol/Ipratropium (Duoneb -) 1 amp NEB Q4H PRN PRN Reason: SHORTNESS OF BREATH Aspirin (Asa -) 81 mg PO DAILY [facility] Last Admin: 08/14/17 10:42 Dose: 81 mg Calcium Acetate (Phoslo -) 667 mg PO TIDCM [facility] Last Admin: 08/15/17 08:09 Dose: 667 mg Cyclobenzaprine HCl (Flexeril -) 10 mg PO HS [facility] Last Admin: 08/14/17 21:28 Dose: 10 mg Folic Acid (Folic Acid -) 1 mg PO DAILY [facility] Last Admin: 08/14/17 10:42 Dose: 1 mg Heparin Sodium (Porcine) (Heparin -) 5,000 unit SQ BID [facility] Last Admin: 08/14/17 21:29 Dose: Not Given Levothyroxine Sodium (Synthroid -) 25 mcg PO DAILY@0700 [facility] Last Admin: 08/15/17 06:24 Dose: 25 mcg Metoprolol Succinate (Toprol Xl -) 12.5 mg PO DAILY [facility] Last Admin: 08/14/17 10:42 Dose: 12.5 mg Sevelamer Carbonate (Renvela -) 1,600 mg PO BID@0800,1730 [facility] Last Admin: 08/15/17 08:09 Dose: 1,600 mg Tamsulosin HCl (Flomax -) 0.4 mg PO DAILY@0830 [facility] Last Admin: 08/15/17 08:09 Dose: 0.4 mg Tramadol HCl (Ultram -) 50 mg PO Q12H PRN Last Admin: 08/14/17 21:42 Dose: 50 mg - Objective Vital Signs: Vital Signs Temperature 98.5 F 08/15/17 05:36 Pulse Rate 68 08/15/17 05:36 Respiratory Rate 20 08/15/17 05:36 Blood Pressure 90/62 08/15/17 05:36 O2 Sat by Pulse Oximetry (%) 95 08/14/17 21:00 Constitutional: Yes: Anxious Eyes: Yes: WNL HENT: Yes: WNL Neck: Yes: WNL Cardiovascular: Yes: Murmur, S1, S2 Respiratory: Yes: Regular, Dullness (left base) Gastrointestinal: Yes: Soft, Distention (mild) ...Rectal Exam: Yes: Deferred Genitourinary: Yes: Anuria Musculoskeletal: Yes: Muscle Weakness Extremities: Yes: Cool Edema: Yes Edema: LLE: Trace, RLE: Trace Peripheral Pulses WNL: Yes Integumentary: Yes: WNL Neurological: Yes: Alert, Oriented Psychiatric: Yes: Other Labs: CBC, BMP 08/14/17 05:05 08/14/17 05:05 INR, PTT INR 1.14 (0.82-1.09) 08/13/17 13:10 - ....Imaging Cat Scan: Image Reviewed (left pleural effusion) Problem List - Problems (2) HCAP (healthcare-associated pneumonia) Code(s): J18.9 - PNEUMONIA, UNSPECIFIED ORGANISM (3) Acute on chronic combined systolic and diastolic CHF, NYHA class 4 Code(s): I50.43 - ACUTE ON CHRONIC COMBINED SYSTOLIC AND DIASTOLIC HRT FAIL (4) Acute on chronic respiratory failure with hypoxemia Code(s): J96.21 - ACUTE AND CHRONIC RESPIRATORY FAILURE WITH HYPOXIA (5) Anemia in CKD (chronic kidney disease) Code(s): N18.9 - CHRONIC KIDNEY DISEASE, UNSPECIFIED; D63.1 - ANEMIA IN CHRONIC KIDNEY DISEASE (6) COPD (chronic obstructive pulmonary disease) Code(s): J44.9 - CHRONIC OBSTRUCTIVE PULMONARY DISEASE, UNSPECIFIED (7) ESRD (end stage renal disease) on dialysis Assessment/Plan: on HD 3x/wk Code(s): N18.6 - END STAGE RENAL DISEASE; Z99.2 - DEPENDENCE ON RENAL DIALYSIS (8) H/O mitral valve repair Code(s): Z98.890 - OTHER SPECIFIED POSTPROCEDURAL STATES (9) Hypotension Code(s): I95.9 - HYPOTENSION, UNSPECIFIED (10) NSVT (nonsustained ventricular tachycardia) Assessment/Plan: on beta blockers. Maintain electrolytes WNL. Code(s): I47.2 - VENTRICULAR TACHYCARDIA (11) Pneumonia Code(s): J18.9 - PNEUMONIA, UNSPECIFIED ORGANISM Qualifiers: Pneumonia type: due to unspecified organism Laterality: right Lung location: lower lobe of lung Qualified Code(s): J18.1 - Lobar pneumonia, unspecified organism (12) Chronic left shoulder pain Code(s): M25.512 - PAIN IN LEFT SHOULDER; G89.29 - OTHER CHRONIC PAIN (13) Pulmonary hypertension Code(s): I27.2 - OTHER SECONDARY PULMONARY HYPERTENSION * DO NOT USE * (14) Atrial septal defect Assessment/Plan: deemed not a candidate for repair due to noncompliance, lifestyle. Code(s): Q21.1 - ATRIAL SEPTAL DEFECT (15) Substance abuse Code(s): F19.10 - OTHER PSYCHOACTIVE SUBSTANCE ABUSE, UNCOMPLICATED
[2017-08-15] MEDS: HEPARIN NA (PORCINE) 5,000 UNITS/ML 1ML VIAL SQ SCH ×2 (10:36→21:41)
--- NOTE | 2017-08-15 10:51 | PN ---
Progress Note (short form) - Note Progress Note: Renal follow up for ESRD on HD Pt seen and examined at the bedside no acute complaints s/p CT of the chest yesterday no cough, fever, chills today for dialysis today Vital Signs Temperature 98.5 F 08/15/17 05:36 Pulse Rate 68 08/15/17 05:36 Respiratory Rate 20 08/15/17 05:36 Blood Pressure 90/62 08/15/17 05:36 O2 Sat by Pulse Oximetry (%) 95 08/14/17 21:00 Intake & Output 08/12/17 08/13/17 08/14/17 08/15/17 23:59 23:59 23:59 23:59 Intake Total 1280 120 Balance 1280 120 Weight 73.482 kg 73.482 kg 73.085 kg NAD dec BS at lung bases RRR trace to 1+ LE edema CBC, BMP 08/14/17 05:05 08/14/17 05:05 Current Medications Acetaminophen (Tylenol -) 650 mg PO Q6H PRN PRN Reason: FEVER OR PAIN Albuterol/Ipratropium (Duoneb -) 1 amp NEB Q4H PRN PRN Reason: SHORTNESS OF BREATH Aspirin (Asa -) 81 mg PO DAILY [facility] Last Admin: 08/14/17 10:42 Dose: 81 mg Calcium Acetate (Phoslo -) 667 mg PO TIDCM [facility] Last Admin: 08/15/17 08:09 Dose: 667 mg Cyclobenzaprine HCl (Flexeril -) 10 mg PO HS [facility] Last Admin: 08/14/17 21:28 Dose: 10 mg Folic Acid (Folic Acid -) 1 mg PO DAILY [facility] Last Admin: 08/14/17 10:42 Dose: 1 mg Heparin Sodium (Porcine) (Heparin -) 5,000 unit SQ BID [facility] Last Admin: 08/15/17 10:36 Dose: Not Given Levothyroxine Sodium (Synthroid -) 25 mcg PO DAILY@0700 [facility] Last Admin: 08/15/17 06:24 Dose: 25 mcg Metoprolol Succinate (Toprol Xl -) 12.5 mg PO DAILY [facility] Last Admin: 08/14/17 10:42 Dose: 12.5 mg Sevelamer Carbonate (Renvela -) 1,600 mg PO BID@0800,1730 [facility] Last Admin: 08/15/17 08:09 Dose: 1,600 mg Tamsulosin HCl (Flomax -) 0.4 mg PO DAILY@0830 [facility] Last Admin: 08/15/17 08:09 Dose: 0.4 mg Tramadol HCl (Ultram -) 50 mg PO Q12H PRN Last Admin: 08/14/17 21:42 Dose: 50 mg 57 year old Gentleman with PMhx of ESRD on HD (TTS), CHF, Valvular heart diesase s/p MV/TV repeair, Hx of Hypertension, ASD, TIA who preented with complaints of weakness and SOB and found to have PNA and low BP #suspected PNA/Pleural effusion Ct showed no evidence of infiltrate or consolidation off Abx did show moderate to large effusion which is recurrent Pulmonary follow up ? need for repeat thoracentesis + pleurodesis given recurrence of effusion #Hypotension chronic in nature, hold antihypertensives #ESRD on HD HD today with UF as tolerated #CHF Cardiology following #CKD related Anemia Goal Hgb > 10 will give MARCO ANTONIO as needed Thank you Abdirashid Guthrie DO
--- NOTE | 2017-08-15 12:02 | PN ---
Progress Note (short form) - Note Progress Note: lack of cooperation by patient with exam and physical continues awake no complaints no fevers chest ct shows reaccumulating pleural effusion, no infiltrate incidental finding of t9/t10 endplate erosion! patient reports low back pain but no upper back pain no fevers Vital Signs Period Temp Pulse Resp BP Sys/Anderson Pulse Ox Last 24 Hr 97.8 F-98.9 F 68-87 18-20 88-116/55-64 95 cor-rrr lungs decreased bs at bases abd soft,nt no upper back pain ext +edema CBC, BMP 08/14/17 05:05 08/14/17 05:05 a/p abnormal chest ct with recurrent effusion and t9/10 bony erosion- r/o vertebral osteomyelitis esr/crp blood cultures MRI neurosurgery opinion continue off antibiotics history endocarditis history of bioMVR/TVR history of MRSA bacteremia 2016 recurrent effusion- f/u pulmonary esrd/hd Problem List - Problems (1) Pleural effusion Code(s): J90 - PLEURAL EFFUSION, NOT ELSEWHERE CLASSIFIED (2) H/O mitral valve repair Code(s): Z98.890 - OTHER SPECIFIED POSTPROCEDURAL STATES (4) ESRD (end stage renal disease) on dialysis Code(s): N18.6 - END STAGE RENAL DISEASE; Z99.2 - DEPENDENCE ON RENAL DIALYSIS
--- NOTE | 2017-08-15 13:29 | CONSULT ---
Consult - History of Present Illness History of Present Illness: 57 year old man with ESRD. A previous left arm fistula developed swelling and was ligated at [facility] with placement of a Permacath 6 months ago. He has been hospitalized several times over the past few months and is readmitted with shortness of breath. - Past Medical History Cardio/Vascular: Yes: CHF (Chronic diastolic HF, Severe Pulm HTN), HTN, Hyperlipdemia, Mitral Insufficiency (s/p MVR (bio)), Pulmonary Hypertension, Other (Severe Tricuspid regurgitation, Endocarditis s/p TVR/MVR, recurrent bacteremia) Pulmonary: Yes: Other (PHTN) Gastrointestinal: Yes: Ascites, Constipation Hepatobiliary: Yes: Hepatitis C Renal/: Yes: Renal Failure, Hemodialysis Psych: Yes: Addictions Musculoskeletal: Yes: Bursitis (left shoulder pain) - Past Surgical History Past Surgical History: Yes: AV Fistula/Graft, Hernia Repair (11/19) - Alcohol/Substance Use Hx Alcohol Use: No History of Substance Use: reports: Cocaine (last use 2 weeks ago), Marijuana - Smoking History Smoking history: Current every day smoker Have you smoked in the past 12 months: Yes Aproximately how many cigarettes per day: 3 - Social History ADL: Independent 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 History of Recent Travel: No Home Medications - Allergies Allergies/Adverse Reactions: Allergies Allergy/AdvReac Type Severity Reaction Status Date / Time Iodinated Contrast- Oral and Allergy Verified 08/13/17 11:04 IV Dye CONTRAST Allergy Hives Uncoded 08/13/17 11:04 - Home Medications Home Medications: Ambulatory Orders Folic Acid 1 mg PO DAILY 09/11/16 Sevelamer Carbonate [Renvela -] 1,600 mg PO BID 09/11/16 Albuterol Sulfate 0.042% [Ventolin 0.042% (Half-Strength) -] 1 amp NEB TID PRN 04/22/17 Cyclobenzaprine HCl [Flexeril -] 10 mg PO HS 04/22/17 Tamsulosin HCl 0.4 mg PO DAILY 07/03/17 Acetaminophen [Tylenol .Regular Strength -] 650 mg PO Q6H PRN tablet 07/20/17 Albuterol 2.5/Ipratropium 0.5 [Duoneb -] 1 amp NEB Q4H PRN amp 07/20/17 Aspirin [ASA -] 81 mg PO DAILY tab.chew 07/20/17 Calcium Acetate [Phoslo -] 667 mg PO TIDCM capsule 07/20/17 Levothyroxine [Synthroid -] 25 mcg PO DAILY@0700 tablet 07/20/17 Metoprolol Succinate [Toprol XL -] 12.5 mg PO DAILY tab.sr.24h 07/20/17 Family Disease History - Family Disease History Family Disease History: Other: Father ( of kidney failure), Mother (muscle problems), Sister (healthy and living, HTN) Physical Exam Vital Signs: Vital Signs Temperature 98.0 F 08/15/17 10:00 Pulse Rate 74 08/15/17 10:00 Respiratory Rate 18 08/15/17 10:00 Blood Pressure 94/53 08/15/17 10:00 O2 Sat by Pulse Oximetry (%) 97 08/15/17 09:00 Extremities: Yes: Other (Left forearm fistula soft, no thrill.) Labs: CBC, BMP 08/14/17 05:05 08/14/17 05:05 Problem List - Problems (1) ESRD (end stage renal disease) on dialysis Assessment/Plan: Plans for creation of new access using left basilic vein have been postponed due to severe pulmonary problems. He appears more stable and we may be able to proceed on this admission once cleared by Medicine. I will order left arm vein mapping in preparation. Code(s): N18.6 - END STAGE RENAL DISEASE; Z99.2 - DEPENDENCE ON RENAL DIALYSIS
[2017-08-15 13:54] LABS: MCH 30.6 pg (25.7-33.7); MCHC 31.1 g/dl (32.0-35.9); MEAN CELL VOLUME 98.3 fl (80-96); MEAN PLT VOLUME 10.1 fl (7.5-11.1); PLATELET COUNT 175 K/MM3 (134-434); RDW 18.2 % (11.9-15.9)
[2017-08-15 14:21] LABS: ANION GAP 9 (8-16); C-REACTIVE PROTEIN 0.9 MG/DL (0.00-0.3); CALCIUM 7.8 mg/dL (8.5-10.1); CO2 27 mmol/L (21-32); GLUCOSE,RANDOM 74 mg/dL (74-106); PHOSPHOROUS 6.2 mg/dL (2.5-4.9)
[2017-08-15 15:29] LABS: CREATININE 8.6 mg/dL (0.7-1.3)
--- NOTE | 2017-08-15 15:54 | PN ---
Progress Note (short form) - Note Progress Note: NEUROSURGERY CONSULT DICTATED Chart reviewed History obtained Pt examined ESRD on HD, CHF, MV/TV repair, pulmonary hypertension, HTN, ASD, TIA, hep C c/o weakness and SOB and found to have PNA and low BP. Feeling lightheaded s/p prior dialysis treatments. Denies any fevers, chills, Abd pain, SOB, Chest pain , N/V/D at the present time. Had thoracocentesis previously but pleural effusion re-accumulated. c/o LBP of 3-4 months duration when up and walking. No new leg weakness/numbness/tingling. No bowel incontinence. PE: T 97.3, VSS HEENT- NC/AT; Neck- supple; Cor- RR; Lungs- decreased BS bases B; Abd-benign; Ext- R UE AVF, no sign of DVT CN- intact; Motor- 5/5 B UE/LE; Sensation- intact LT; DTR- 2+, toes downgoing WBC 5.0, ESR 20, CRP 0.[address] Chest (08/2017)- large L pleural effusion, mediastinal lymphadenopathy, T9- 10 sclerosis and endplate erosion unchanged from 07/2017 CT scan (1 month ago almost exactly) but not present on prior 06/[address] Subacute-chronic T9-10 discitis/osteomyelitis vs DDD/endplate sclerosis/dialysis -related changes (no change in CT appearance since past month) No neurological deficit associated and no neurosurgical intervention indicated or recommended By laboratory exam does not appear to have acute spinal infectious process, though ESRD/HD predisposes pt to spinal infection If in doubt consider CT guided Bx/gram stain/culture of T9-10 disc material The above d/w patient All questions answered
--- NOTE | 2017-08-15 16:26 | PN ---
Progress Note (short form) - Note Progress Note: PULMONARY Apparently was just told about spinal issues, now combative, agitated. Unable to hold conversation. Recommend HD with ultrafiltration to attempt to decrease effusion, if unable to do so due to hypotension or not responding to ultrafiltration, can perform thoracentesis by IR. Please call if further questions. Zachary Foley MD
[2017-08-15] MEDS: ASPIRIN 81 MG CHEWABLE TABLETS PO SCH (16:32)
[2017-08-15] MEDS: FOLIC ACID 1 MG TABLET (FP) PO SCH (16:32)
[2017-08-15] MEDS: METOPROLOL SUCCINATE 25 MG TAB.SR.24H (FP) PO SCH (16:32)
[2017-08-15] MEDS: CYCLOBENZAPRINE HCL 10 MG TABLET (FP) PO SCH (21:41)
--- NOTE | 2017-08-16 00:08 | PN ---
Progress Note, Physician - Current Medication List Current Medications: Active Medications Acetaminophen (Tylenol -) 650 mg PO Q6H PRN PRN Reason: FEVER OR PAIN Albuterol/Ipratropium (Duoneb -) 1 amp NEB Q4H PRN PRN Reason: SHORTNESS OF BREATH Aspirin (Asa -) 81 mg PO DAILY [facility] Last Admin: 08/15/17 16:32 Dose: 81 mg Calcium Acetate (Phoslo -) 667 mg PO TIDCM [facility] Last Admin: 08/15/17 16:33 Dose: 667 mg Cyclobenzaprine HCl (Flexeril -) 10 mg PO HS [facility] Last Admin: 08/15/17 21:41 Dose: 10 mg Folic Acid (Folic Acid -) 1 mg PO DAILY [facility] Last Admin: 08/15/17 16:32 Dose: 1 mg Heparin Sodium (Porcine) (Heparin -) 5,000 unit SQ BID [facility] Last Admin: 08/15/17 21:41 Dose: Not Given Levothyroxine Sodium (Synthroid -) 25 mcg PO DAILY@0700 [facility] Last Admin: 08/15/17 06:24 Dose: 25 mcg Metoprolol Succinate (Toprol Xl -) 12.5 mg PO DAILY [facility] Last Admin: 08/15/17 16:32 Dose: 12.5 mg Sevelamer Carbonate (Renvela -) 1,600 mg PO BID@0800,1730 [facility] Last Admin: 08/15/17 16:34 Dose: 1,600 mg Tamsulosin HCl (Flomax -) 0.4 mg PO DAILY@0830 [facility] Last Admin: 08/15/17 08:09 Dose: 0.4 mg Tramadol HCl (Ultram -) 50 mg PO Q12H PRN Last Admin: 08/14/17 21:42 Dose: 50 mg - Objective Vital Signs: Vital Signs Temperature 98.1 F 08/15/17 20:15 Pulse Rate 72 08/15/17 20:15 Respiratory Rate 20 08/15/17 20:15 Blood Pressure 96/58 08/15/17 20:15 O2 Sat by Pulse Oximetry (%) 97 08/15/17 09:00 Labs: CBC, BMP 08/15/17 12:30 08/15/17 12:30 INR, PTT INR 1.14 (0.82-1.09) 08/13/17 13:10
[2017-08-16] MEDS: LEVOTHYROXINE NA 25 MCG TABLET (FP) PO SCH (06:47)
[2017-08-16] MEDS: CALCIUM ACETATE 667 MG CAPSULE (FP) PO SCH ×3 (07:44→17:58)
[2017-08-16] MEDS: TAMSULOSIN HCL 0.4 MG CAP.ER.24H (FP) PO SCH (07:44)
[2017-08-16] MEDS: SEVELAMER CARBONATE 800 MG TAB (FP) PO SCH ×2 (07:44→17:59)
[2017-08-16] MEDS ORDERED: VANCOMYCIN 1,000 MG in DEXTROSE 5%-WATER - 250 ML IVPB ONE (08:27)
--- NOTE | 2017-08-16 10:08 | PN ---
Progress Note (short form) - Note Progress Note: lack of cooperation by patient with exam and physical continues awake no complaints no fevers patient reports low back pain but no upper back pain Vital Signs Period Temp Pulse Resp BP Sys/Anderson Pulse Ox Last 24 Hr 97.3 F-99.0 F 70-96 18-20 82-122/41-76 94 cor-rrr lungs decreased bs at bases abd soft,nt ext +edema CBC, BMP 08/15/17 12:30 08/15/17 12:30 Microbiology 08/15/17 12:30 Blood - Pre-Dialysis Blood Culture - Preliminary Pending Organism Laboratory Tests 08/15/17 08/15/17 12:30 12:30 ESR 20 C-Reactive Protein 0.9 H D a/p abnormal chest ct with recurrent effusion and t9/10 bony erosion- r/o vertebral osteomyelitis esr/crp blood cultures MRI dissussed with radiology - minimal edema noted neurosurgery opinion now one of four blood ultures positive stat repeat peripheral blood cultures vancomycin today. f/u cultures are back inflammatory markers are not markedly elevated as well history endocarditis history of bioMVR/TVR history of MRSA bacteremia 2016 recurrent effusion- f/u pulmonary esrd/hd Problem List - Problems (1) Pleural effusion Code(s): J90 - PLEURAL EFFUSION, NOT ELSEWHERE CLASSIFIED (2) H/O mitral valve repair Code(s): Z98.890 - OTHER SPECIFIED POSTPROCEDURAL STATES (4) ESRD (end stage renal disease) on dialysis Code(s): N18.6 - END STAGE RENAL DISEASE; Z99.2 - DEPENDENCE ON RENAL DIALYSIS
--- NOTE | 2017-08-16 10:23 | PN ---
Progress Note (short form) - Note Progress Note: Renal follow up for ESRD on HD Pt seen and examined at the bedside no acute complaints s/p dialysis yesterday, unable to remove fluid because of low bP pt denies any fever, chills, SOB, Cp Vital Signs Temperature 98.2 F 08/16/17 06:00 Pulse Rate 70 08/16/17 06:00 Respiratory Rate 20 08/16/17 06:00 Blood Pressure 87/48 08/16/17 06:00 O2 Sat by Pulse Oximetry (%) 94 L 08/15/17 21:00 Intake & Output 08/13/17 08/14/17 08/15/17 08/16/17 23:59 23:59 23:59 23:59 Intake Total 1280 1020 Balance 1280 1020 Weight 73.482 kg 73.482 kg 73.085 kg NAD dec BS at lung bases RRR 1+ edema in LE CBC, BMP 08/15/17 12:30 08/15/17 12:30 Current Medications Acetaminophen (Tylenol -) 650 mg PO Q6H PRN PRN Reason: FEVER OR PAIN Albuterol/Ipratropium (Duoneb -) 1 amp NEB Q4H PRN PRN Reason: SHORTNESS OF BREATH Aspirin (Asa -) 81 mg PO DAILY [facility] Last Admin: 08/15/17 16:32 Dose: 81 mg Calcium Acetate (Phoslo -) 667 mg PO TIDCM [facility] Last Admin: 08/16/17 07:44 Dose: 667 mg Cyclobenzaprine HCl (Flexeril -) 10 mg PO HS [facility] Last Admin: 08/15/17 21:41 Dose: 10 mg Folic Acid (Folic Acid -) 1 mg PO DAILY [facility] Last Admin: 08/15/17 16:32 Dose: 1 mg Heparin Sodium (Porcine) (Heparin -) 5,000 unit SQ BID [facility] Last Admin: 08/15/17 21:41 Dose: Not Given Levothyroxine Sodium (Synthroid -) 25 mcg PO DAILY@0700 [facility] Last Admin: 08/16/17 06:47 Dose: 25 mcg Metoprolol Succinate (Toprol Xl -) 12.5 mg PO DAILY [facility] Last Admin: 08/15/17 16:32 Dose: 12.5 mg Sevelamer Carbonate (Renvela -) 1,600 mg PO BID@0800,1730 [facility] Last Admin: 08/16/17 07:44 Dose: 1,600 mg Tamsulosin HCl (Flomax -) 0.4 mg PO DAILY@0830 [facility] Last Admin: 08/16/17 07:44 Dose: 0.4 mg Tramadol HCl (Ultram -) 50 mg PO Q12H PRN Last Admin: 08/14/17 21:42 Dose: 50 mg 57 year old Gentleman with PMhx of ESRD on HD (TTS), CHF, Valvular heart diesase s/p MV/TV repeair, Hx of Hypertension, ASD, TIA who preented with complaints of weakness and SOB and found to have PNA and low BP #Subacute inflamation of thorasic spine + positive blood culture s/p Neuro Sx eval and MRI 09/10 bottle grew gram positive cocci in clusters to get IV vanco today per ID repeat cultures to be drawn prior to Abx CRP and ESR are WNL and no clinical signs of infection #Moderate to large pleural effusion will unlikely be able to remove with UF/HD will require thoracentesis #Hypotension chronic in nature, hold antihypertensives start Midodrine 5mg TID #ESRD on HD s/p dialysis w/o UF yesterday will plan for isolated UF tomorrow in a attempt to remove fluid #CHF Cardiology following #CKD related Anemia Goal Hgb > 10 will give MARCO ANTONIO as needed Thank you Abdirashid Guthrie DO
--- NOTE | 2017-08-16 11:19 | PN ---
Progress Note (short form) - Note Progress Note: NEUROSURGERY ESRD on HD, CHF, MV/TV repair, pulmonary hypertension, HTN, ASD, TIA, hep C c/o weakness and SOB and found to have presumed PNA and low BP. Feeling lightheaded s/p prior dialysis treatments. Denies any fevers, chills, Abd pain, SOB, Chest pain, N/V/D at the present time. Had thoracocentesis previously but pleural effusion re-accumulated. c/o LBP of 3-4 months duration. No new leg weakness/ numbness/tingling. No bowel incontinence. Abx stopped previously given no clear sign of PNA. PE: Tmax 99, VSS HEENT- NC/AT; Neck- supple; Cor- RR; Lungs- decreased BS bases B; Abd-benign; Ext- R UE AVF, no sign of DVT Back- mild tenderness mid and lower lumbar spine CN- intact; Motor- 5/5 B UE/LE; Sensation- intact LT; DTR- 2+, toes downgoing WBC 5.0, ESR 20, CRP 0.9 Blood culture- / gram + cocci in clusters CT Chest (08/2017)- large L pleural effusion, mediastinal lymphadenopathy, T9- 10 sclerosis and endplate erosion unchanged from 07/2017 CT scan (1 month ago almost exactly) but not present on prior 06/[address] MRI T spine without- Heterogenous marrow signal changes (dialysis); T9-10 chronic endplate erosion with no paraspinal or epidural abscess; T6-7 disc space hyperintensity; small T5-6 disc bulge; cervical ddd Subacute-chronic T9-10 discitis/osteomyelitis vs DDD/endplate sclerosis/ nephrogenic sclerosis (no change in CT appearance since 07/2017) No associated neurological deficit By laboratory exam does not appear to have acute spinal infectious process, though ESRD/HD predisposes pt to spinal infection Consider CT guided Bx/gram stain/culture of T9-10 disc material if possible Hold baby ASA The above d/w patient and he understands and concurs D/w Dr Yury walter for possible gram +/MRSA bacteremia All questions answered
[2017-08-16] MEDS: ASPIRIN 81 MG CHEWABLE TABLETS PO SCH (11:47)
[2017-08-16] MEDS: HEPARIN NA (PORCINE) 5,000 UNITS/ML 1ML VIAL SQ SCH ×2 (11:47→21:37)
[2017-08-16] MEDS: FOLIC ACID 1 MG TABLET (FP) PO SCH (11:47)
[2017-08-16] MEDS: METOPROLOL SUCCINATE 25 MG TAB.SR.24H (FP) PO SCH (11:47)
--- NOTE | 2017-08-16 13:44 | CONS ---
DATE OF CONSULTATION: 08/15/2017 CHIEF COMPLAINT: Back pain and T9-10 disc/vertebral changes. HISTORY OF PRESENT ILLNESS: The patient is a 57-year-old right-handed male with history of end-stage renal disease, on hemodialysis, congestive heart failure, mitral valve and tricuspid valve repair, pulmonary hypertension, systemic hypertension, systemic hypertension, atherosclerotic coronary disease, TIA, and hepatitis C, who was found to be hypotensive just prior to his dialysis session. He underwent further evaluation because of his generalized weakness and dyspnea, and was found to have possible pneumonia. He is currently being treated for such with Zosyn. Antibiotic was stopped after pneumonia was ruled out. Presently, he denies chest pain or significant shortness of breath. He has no fevers or chills. He has a mild residual cough. He does complain of 3 to 4 month history of lower back pain, which has been intermittent, and is near the midline. It is worse with standing and walking. Past medical history is significant for CHF, mitral and tricuspid valve regurgitation status post surgical repair, pulmonary hypertension, systemic hypertension, coronary artery disease, TIA, hepatitis C, end-stage renal disease on hemodialysis, pleural effusion. Current medications include Flomax, Tylenol, subcutaneous heparin, DuoNeb, Toprol XL, Flexeril, aspirin, Ultram, calcium acetate, Renvela, Synthroid, and folic acid. Allergies to IV IODINE. In terms of social history, he does not smoke or drink. He does not work. He has been out of the hospital for the past several months. Review of systems is otherwise negative for other major constitutional, head and neck, cardiovascular, pulmonary, gastrointestinal, genitourinary, endocrinological, neurological, or psychological problem except for the above. PHYSICAL EXAMINATION: Vital Signs: Temperature is 97.3, blood pressure 106/76, with pulse rate 80, O2 saturation is 97% on 2 L. He is undergoing hemodialysis during examination. HEENT: Normocephalic, atraumatic. Anicteric. Neck: Supple with no carotid bruit or lymphadenopathy. Coronary: Regular rhythm. He has a 3/6 systolic ejection murmur. Lungs: Decreased breath sound in the bases bilaterally. Abdomen: Benign. Extremities: Right upper extremity AV fistula. There are no signs of DVT. Neurologic: He is awake and alert, oriented x4. Cranial nerves examination is intact, 2-12. Motor examination shows 4+/5/5 strength in bilateral upper and lower extremities. Sensory examination is intact to light touch. Deep tendon reflexes are 2+ throughout. There are no pathological long tract signs. Toes are downgoing. Laboratory examination shows sodium to be 142 and potassium to be 4.9, BUN 35 and creatinine 8.6 prior to dialysis. C-reactive protein 0.9. White blood cell count is 5.0, hemoglobin 10.1, platelet count 175,000. ESR is 20. Hepatitis panel is pending. CT scan of the chest demonstrated recurrent large left-sided pleural effusion. This was compared to a prior CAT scan from early July this year. There is T9-10 endplate sclerosis from prior bone erosion. It does not appear changed from the last month's scan. There is moderate paraspinal soft-tissue density, which does not appear too much change either. There is no obvious canal impingement or significant spondylolisthesis on the August scan. IMPRESSION: 1. Subacute/chronic T9-T10 diskitis/osteomyelitis versus degenerative disk disease and endplate sclerosis at T9-10. 2. Recent pneumonia, status post IV antibiotic treatment. 3. Large left pleural effusion. 4. Tricuspid mitral insufficiency, status post valvular repair. 5. Coronary artery disease. 6. Congestive heart failure. 7. End-stage renal disease, on hemodialysis. RECOMMENDATIONS: The patient presents with 3 to 4 month history of lower back pain upon ambulation and standing. He has no lower extremity weakness or increasing numbness. There is no bowel incontinence. He is anuric and does not make any urine at baseline. He has no recent fever or chills. He did have a slight cough previously, which has been improving. CT scan of the chest demonstrated T9-T10 endplate sclerosis and erosion on both early July and repeat chest scan done yesterday. This was not present on his CAT scan of the chest from June 2016. Laboratory examination does not demonstrate acute infection. Specifically, the patient has a normal white blood cell count, ESR, and C-reactive protein. Blood culture is still pending. Under ordinary circumstances, this could be treated as either chronic diskitis/osteomyelitis, which is possibly aseptic, or simply a degenerative disk disease with endplate sclerosis in face of nephrogenic disc/ bone changes. On the other hand, the patient remains on hemodialysis, and has a higher risk of developing infections including discitis and osteomyelitis in general. MRI without contrast could visualize the area in question but is unlikely to firm down a diagnosis. Gadolinium is not feasible in the hemodialysis setting. If in doubt, a CT- guided biopsy of the T9-T10 disk could be contemplated to obtain Gram stain and cultures to better assess the nature of the disk space and endplate pathology. The above was discussed with patient at bedside. All questions were answered. No neurosurgical intervention is indicated nor recommended at this time. The patient remains neurologically nonfocal from a thoracic spine standpoint. Care was discussed with Dr. Foley. Torres [id number]
[2017-08-16] MEDS: MIDODRINE HCL 5 MG TABLET PO SCH ×4 (15:00→18:02)
[2017-08-16] MEDS ORDERED: PT OWN MED DRAWER 7, Y5N ONE (18:24)
[2017-08-16] MEDS: ALBUTEROL SO4 2.5/IPRATROPIUM 0.5 INH SOL 3 ML VIAL.NEB. NEB PRN (19:16)
[2017-08-16] MEDS: CYCLOBENZAPRINE HCL 10 MG TABLET (FP) PO SCH (21:37)
--- NOTE | 2017-08-16 23:05 | PN ---
Progress Note, Physician History of Present Illness: Pt c/o lt shoulder pain wc has been present for more than 6 months - Current Medication List Current Medications: Active Medications Acetaminophen (Tylenol -) 650 mg PO Q6H PRN PRN Reason: FEVER OR PAIN Albuterol/Ipratropium (Duoneb -) 1 amp NEB Q4H PRN PRN Reason: SHORTNESS OF BREATH Last Admin: 08/16/17 19:16 Dose: 1 amp Aspirin (Asa -) 81 mg PO DAILY [facility] Last Admin: 08/16/17 11:47 Dose: 81 mg Calcium Acetate (Phoslo -) 667 mg PO TIDCM [facility] Last Admin: 08/16/17 17:58 Dose: 667 mg Cyclobenzaprine HCl (Flexeril -) 10 mg PO HS [facility] Last Admin: 08/16/17 21:37 Dose: 10 mg Folic Acid (Folic Acid -) 1 mg PO DAILY [facility] Last Admin: 08/16/17 11:47 Dose: 1 mg Heparin Sodium (Porcine) (Heparin -) 5,000 unit SQ BID [facility] Last Admin: 08/16/17 21:37 Dose: Not Given Levothyroxine Sodium (Synthroid -) 25 mcg PO DAILY@0700 [facility] Last Admin: 08/16/17 06:47 Dose: 25 mcg Metoprolol Succinate (Toprol Xl -) 12.5 mg PO DAILY [facility] Last Admin: 08/16/17 11:47 Dose: 12.5 mg Midodrine (Proamatine -) 5 mg PO TID-MID [facility] Last Admin: 08/16/17 18:02 Dose: Not Given Sevelamer Carbonate (Renvela -) 1,600 mg PO BID@0800,1730 [facility] Last Admin: 08/16/17 17:59 Dose: 1,600 mg Tamsulosin HCl (Flomax -) 0.4 mg PO DAILY@0830 [facility] Last Admin: 08/16/17 07:44 Dose: 0.4 mg Tramadol HCl (Ultram -) 50 mg PO Q12H PRN Last Admin: 08/14/17 21:42 Dose: 50 mg - Objective Vital Signs: Vital Signs Temperature 97.8 F 08/16/17 21:00 Pulse Rate 82 08/16/17 21:00 Respiratory Rate 20 08/16/17 21:00 Blood Pressure 110/60 08/16/17 21:00 O2 Sat by Pulse Oximetry (%) 97 08/16/17 21:00 HENT: Yes: WNL Neck: Yes: WNL, Supple Cardiovascular: Yes: WNL, Regular Rate and Rhythm Respiratory: Yes: Diminished Gastrointestinal: Yes: WNL, Normal Bowel Sounds, Soft Labs: CBC, BMP 08/15/17 12:30 08/15/17 12:30 INR, PTT INR 1.14 (0.82-1.09) 08/13/17 13:10 Problem List - Problems (1) Chronic left shoulder pain Assessment/Plan: Will check MRI lt shoulder Ortho consult Code(s): M25.512 - PAIN IN LEFT SHOULDER; G89.29 - OTHER CHRONIC PAIN (2) Acute dyspnea Assessment/Plan: Pt w/ lt sided pleural effusion Will arrange for thoracentesis w/ IR for am Cont duoneb Cont IV vanco for pneumonia Code(s): R06.00 - DYSPNEA, UNSPECIFIED (3) Acute on chronic combined systolic and diastolic CHF, NYHA class 4 Assessment/Plan: Diuretics on hold due to hypotension As per cardio Code(s): I50.43 - ACUTE ON CHRONIC COMBINED SYSTOLIC AND DIASTOLIC HRT FAIL (4) ESRD (end stage renal disease) on dialysis Assessment/Plan: As per renal Pt w/ hypotension during dialysis wc had to be stopped Code(s): N18.6 - END STAGE RENAL DISEASE; Z99.2 - DEPENDENCE ON RENAL DIALYSIS (5) Anemia in CKD (chronic kidney disease) Assessment/Plan: H/H stable Code(s): N18.9 - CHRONIC KIDNEY DISEASE, UNSPECIFIED; D63.1 - ANEMIA IN CHRONIC KIDNEY DISEASE (6) Hypothyroid Assessment/Plan: Cont levothyroxine Code(s): E03.9 - HYPOTHYROIDISM, UNSPECIFIED
[2017-08-17] MEDS: ALBUTEROL SO4 2.5/IPRATROPIUM 0.5 INH SOL 3 ML VIAL.NEB. NEB PRN ×2 (02:42→08:11)
[2017-08-17] MEDS: LEVOTHYROXINE NA 25 MCG TABLET (FP) PO SCH ×2 (05:58→06:36)
--- NOTE | 2017-08-17 08:05 | PN ---
Progress Note (short form) - Note Progress Note: NEUROSURGERY Some LBP Prior MRSA infection PE: Tmax 98.7, VSS HEENT- NC/AT; Neck- supple; Cor- RR; Lungs- decreased BS bases B; Abd-benign; Ext- R UE AVF, no sign of DVT Back- mild tenderness mid and lower lumbar spine CN- intact; Motor- 5/5 B UE/LE; Sensation- intact LT; DTR- 2+, toes downgoing Blood culture- 1/4 gram + cocci in clusters, sensitivity pending MRI T spine without- Heterogenous marrow signal changes (dialysis related); T9- 10 chronic endplate erosion with no paraspinal or epidural abscess; T6-7 disc space hyperintensity; small T5-6 disc bulge; cervical ddd Subacute-chronic T9-10 discitis/osteomyelitis vs DDD/endplate sclerosis/ nephrogenic sclerosis (no change in CT appearance since 07/2017) Consider CT guided Bx/gram stain/culture/path of T9-10 disc material if possible Hold baby ASA Care d/w Dr. Cotton Communicated with Dr Gee yesterday The above d/w patient and he understands and concurs Encouraged pt to be OOB to reduce adverse events incidence from immobility Getting vanco for possible gram +/MRSA bacteremia All questions answered
[2017-08-17] MEDS: TAMSULOSIN HCL 0.4 MG CAP.ER.24H (FP) PO SCH ×2 (08:19→13:52)
[2017-08-17] MEDS: CALCIUM ACETATE 667 MG CAPSULE (FP) PO SCH ×3 (08:23→17:37)
[2017-08-17] MEDS: SEVELAMER CARBONATE 800 MG TAB (FP) PO SCH ×2 (08:23→17:38)
[2017-08-17] MEDS ORDERED: PT OWN MED DRAWER 7, Y5N ONE (11:10)
[2017-08-17] MEDS: HEPARIN NA (PORCINE) 5,000 UNITS/ML 1ML VIAL SQ SCH ×2 (11:12→21:19)
[2017-08-17] MEDS: MIDODRINE HCL 5 MG TABLET PO SCH ×3 (11:14→17:37)
--- NOTE | 2017-08-17 12:07 | PN ---
Teaching Attending Note Name of Resident: Colin Hernandez ATTENDING PHYSICIAN STATEMENT I saw and evaluated the patient. I reviewed the resident's note and discussed the case with the resident. I agree with the resident's findings and plan as documented. PULMONARY ALERT,ON DIALYSIS,STILL C/O SOB ,-CP,-COUGH IMP DYSPNEA ?CHF COPD LEFT PLEURAL EFFUSION PREVIOUS CHEMISTRIES C/W TRANSUDATE PULMONARY HTN VALVULAR HD ESRD ON HD PLAN HD PER RENAL O2 INHALED BRONCHODILATORS ANTIBIOTICS PER ID THORACENTESIS BX T9-T10 DISC DR HELLER Problem List - Problems (1) Acute dyspnea Code(s): R06.00 - DYSPNEA, UNSPECIFIED (2) Acute on chronic combined systolic and diastolic CHF, NYHA class 4 Code(s): I50.43 - ACUTE ON CHRONIC COMBINED SYSTOLIC AND DIASTOLIC HRT FAIL (3) Anemia in CKD (chronic kidney disease) Code(s): N18.9 - CHRONIC KIDNEY DISEASE, UNSPECIFIED; D63.1 - ANEMIA IN CHRONIC KIDNEY DISEASE (4) CHF (congestive heart failure) Code(s): I50.9 - HEART FAILURE, UNSPECIFIED (5) COPD (chronic obstructive pulmonary disease) Code(s): J44.9 - CHRONIC OBSTRUCTIVE PULMONARY DISEASE, UNSPECIFIED (6) Dyspnea Code(s): R06.00 - DYSPNEA, UNSPECIFIED (7) ESRD (end stage renal disease) on dialysis Code(s): N18.6 - END STAGE RENAL DISEASE; Z99.2 - DEPENDENCE ON RENAL DIALYSIS (8) Fluid overload Code(s): E87.70 - FLUID OVERLOAD, UNSPECIFIED Qualifiers: Hypervolemia type: unspecified Qualified Code(s): E87.70 - Fluid overload, unspecified (9) H/O mitral valve repair Code(s): Z98.890 - OTHER SPECIFIED POSTPROCEDURAL STATES (10) Hypotension Code(s): I95.9 - HYPOTENSION, UNSPECIFIED (11) SOB (shortness of breath) Code(s): R06.02 - SHORTNESS OF BREATH (12) Mitral regurgitation Code(s): I34.0 - NONRHEUMATIC MITRAL (VALVE) INSUFFICIENCY Qualifiers: Cardiac valve disease etiology: nonrheumatic Qualified Code(s): I34.0 - Nonrheumatic mitral (valve) insufficiency (13) Pleural effusion Code(s): J90 - PLEURAL EFFUSION, NOT ELSEWHERE CLASSIFIED (14) Pulmonary hypertension Code(s): I27.2 - OTHER SECONDARY PULMONARY HYPERTENSION * DO NOT USE * Problem List - Problems (1) Acute dyspnea Code(s): R06.00 - DYSPNEA, UNSPECIFIED (2) Acute on chronic combined systolic and diastolic CHF, NYHA class 4 Code(s): I50.43 - ACUTE ON CHRONIC COMBINED SYSTOLIC AND DIASTOLIC HRT FAIL (3) Anemia in CKD (chronic kidney disease) Code(s): N18.9 - CHRONIC KIDNEY DISEASE, UNSPECIFIED; D63.1 - ANEMIA IN CHRONIC KIDNEY DISEASE (4) CHF (congestive heart failure) Code(s): I50.9 - HEART FAILURE, UNSPECIFIED (5) COPD (chronic obstructive pulmonary disease) Code(s): J44.9 - CHRONIC OBSTRUCTIVE PULMONARY DISEASE, UNSPECIFIED (6) Dyspnea Code(s): R06.00 - DYSPNEA, UNSPECIFIED (7) ESRD (end stage renal disease) on dialysis Code(s): N18.6 - END STAGE RENAL DISEASE; Z99.2 - DEPENDENCE ON RENAL DIALYSIS (8) Fluid overload Code(s): E87.70 - FLUID OVERLOAD, UNSPECIFIED Qualifiers: Hypervolemia type: unspecified Qualified Code(s): E87.70 - Fluid overload, unspecified (9) H/O mitral valve repair Code(s): Z98.890 - OTHER SPECIFIED POSTPROCEDURAL STATES (10) Hypotension Code(s): I95.9 - HYPOTENSION, UNSPECIFIED (11) SOB (shortness of breath) Code(s): R06.02 - SHORTNESS OF BREATH (12) Mitral regurgitation Code(s): I34.0 - NONRHEUMATIC MITRAL (VALVE) INSUFFICIENCY Qualifiers: Cardiac valve disease etiology: nonrheumatic Qualified Code(s): I34.0 - Nonrheumatic mitral (valve) insufficiency (13) Pleural effusion Code(s): J90 - PLEURAL EFFUSION, NOT ELSEWHERE CLASSIFIED (14) Pulmonary hypertension Code(s): I27.2 - OTHER SECONDARY PULMONARY HYPERTENSION * DO NOT USE *
[2017-08-17 12:53] LABS: BASOPHIL 1.2 % (0-2.0); EOSINOPHIL 8.8 % (0-4.5); MCH 30.8 pg (25.7-33.7); MCHC 31.5 g/dl (32.0-35.9); MEAN CELL VOLUME 97.8 fl (80-96); MEAN PLT VOLUME 9.8 fl (7.5-11.1); NEUTROPHILS 71.6 % (42.8-82.8); PLATELET COUNT 175 K/MM3 (134-434); RDW 18.7 % (11.9-15.9); WHITE BLOOD COUNT 4.7 K/mm3 (4.0-10.0)
[2017-08-17 13:19] LABS: ALBUMIN 1.4 g/dl (3.4-5.0); ANION GAP 10 (8-16); BILIRUBIN,TOTAL 0.2 mg/dL (0.2-1.0); CALCIUM 7.7 mg/dL (8.5-10.1); CO2 26 mmol/L (21-32); GLUCOSE,RANDOM 93 mg/dL (74-106); SGOT/AST 22 U/L (15-37); SGPT/ALT 19 U/L (12-78); TOT PROT 4.5 g/dl (6.4-8.2)
[2017-08-17 13:25] LABS: ALK PHOS 88 U/L (45-117)
--- NOTE | 2017-08-17 13:37 | PN ---
Progress Note (short form) - Note Progress Note: quite comfortable today on HD reports being on HD for last 11 years does not recall having a blood stream infection since MRSA in 06/2016 that was treated medically (he was transferred to [facility]) Vital Signs Period Temp Pulse Resp BP Sys/Anderson Pulse Ox Last 24 Hr 97.4 F-98.7 F 71-91 18-20 98-119/47-77 97 cor-rrr lungs decreased bs at bases abd soft,nt ext edema left forearm +PC right chest wall CBC, BMP 08/17/17 11:55 08/17/17 11:55 Laboratory Tests 08/15/17 08/15/17 12:30 12:30 ESR 20 C-Reactive Protein 0.9 H D Microbiology 08/15/17 12:30 Blood - Pre-Dialysis Blood Culture - Preliminary NO GROWTH OBTAINED AFTER 48 HOURS, INCUBATION TO CONTINUE FOR 3 DAYS. 08/15/17 12:30 Blood - Pre-Dialysis Blood Culture - Preliminary Pending Organism 08/16/17 09:03 Blood - Peripheral Venous Blood Culture - Preliminary NO GROWTH OBTAINED AFTER 24 HOURS, INCUBATION TO CONTINUE FOR 4 DAYS. 08/16/17 08:58 Blood - Peripheral Venous Blood Culture - Preliminary NO GROWTH OBTAINED AFTER 24 HOURS, INCUBATION TO CONTINUE FOR 4 DAYS. a/p r/o vertebral osteo called micro- blood culture isolate is coag neg staph, repeat blood cultures sent beforevanco was given hold further vancomycin per Neurosurgery- plan for IR biopsy history endocarditis history of bioMVR/TVR history of MRSA bacteremia 2016 recurrent effusion- f/u pulmonary esrd/hd-via PC Problem List - Problems (1) Pleural effusion Code(s): J90 - PLEURAL EFFUSION, NOT ELSEWHERE CLASSIFIED (2) H/O mitral valve repair Code(s): Z98.890 - OTHER SPECIFIED POSTPROCEDURAL STATES (4) ESRD (end stage renal disease) on dialysis Code(s): N18.6 - END STAGE RENAL DISEASE; Z99.2 - DEPENDENCE ON RENAL DIALYSIS
[2017-08-17] MEDS: FOLIC ACID 1 MG TABLET (FP) PO SCH (13:53)
[2017-08-17] MEDS: METOPROLOL SUCCINATE 25 MG TAB.SR.24H (FP) PO SCH ×2 (13:53→17:37)
--- NOTE | 2017-08-17 15:03 | PN ---
Physical Exam: SUBJECTIVE: Patient seen and examined. No acute events overnight. Pt reports that SOB is same as yesterday. Denies any new symptoms. OBJECTIVE: Vital Signs Period Temp Pulse Resp BP Sys/Anderson Pulse Ox Last 24 Hr 97.4 F-98.7 F 80-91 18-20 107-119/47-77 90-97 GENERAL: middle aged male, sitting in bed, awake, alert, and fully oriented, in no acute distress. HEENT: NC, AT, EOMI NECK: Normal range of motion, supple without lymphadenopathy, JVD, or masses. LUNGS: decreased lung sounds over left lung, scattered rales HEART: Regular rate and rhythm, normal S1 and S2 without murmur, rub or gallop. ABDOMEN: reducible umbilical hernia, soft, NT MUSCULOSKELETAL: b/l 2+ LE edema NEUROLOGICAL: Cranial nerves II-XII intact. Normal speech. PSYCHIATRIC: agitated SKIN: Warm, dry, normal turgor, no rashes or lesions noted. Laboratory Results - last 24 hr 08/15/17 08/17/17 08/17/17 12:30 11:54 11:55 WBC RBC Hgb Hct MCV MCH MCHC RDW Plt Count MPV Neutrophils % Lymphocytes % Monocytes % Eosinophils % Basophils % Sodium Cancelled Potassium Cancelled Chloride Cancelled Carbon Dioxide Cancelled Anion Gap Cancelled BUN Cancelled Creatinine Cancelled Creat Clearance w eGFR Random Glucose Cancelled Calcium Cancelled Magnesium Cancelled Total Bilirubin AST ALT Alkaline Phosphatase Total Protein Albumin Random Vancomycin 17.567 Hepatitis A Ab Total Negative Hep Bs Antigen Negative Hep Bs Antibody Non reactive Hep B Core Total Ab Negative Hepatitis C Antibody 0.1 08/17/17 08/17/17 11:55 11:55 WBC 4.7 RBC 3.30 L Hgb 10.2 L Hct 32.3 L MCV 97.8 H MCH 30.8 MCHC 31.5 L RDW 18.7 H Plt Count 175 MPV 9.8 Neutrophils % 71.6 Lymphocytes % 8.5 D Monocytes % 9.9 Eosinophils % 8.8 H Basophils % 1.2 Sodium 142 Potassium 4.4 Chloride 106 Carbon Dioxide 26 Anion Gap 10 BUN 27 H D Creatinine 8.0 H* Creat Clearance w eGFR 7.04 Random Glucose 93 D Calcium 7.7 L Magnesium 2.0 Total Bilirubin 0.2 D AST 22 ALT 19 Alkaline Phosphatase 88 Total Protein 4.5 L Albumin 1.4 L Random Vancomycin Hepatitis A Ab Total Hep Bs Antigen Hep Bs Antibody Hep B Core Total Ab Hepatitis C Antibody Active Medications Generic Name Dose Route Start Last Admin Trade Name Freq PRN Reason Stop Dose Admin Acetaminophen 650 mg 08/13/17 23:08 Tylenol - PO Q6H PRN FEVER OR PAIN Albuterol/Ipratropium 1 amp 08/13/17 23:08 08/17/17 08:11 Duoneb - NEB 1 amp Q4H PRN Administration SHORTNESS OF BREATH Calcium Acetate 667 mg 08/14/17 08:00 08/17/17 13:52 Phoslo - PO 667 mg TIDCM [facility] Administration Cyclobenzaprine HCl 10 mg 08/14/17 22:00 08/16/17 21:37 Flexeril - PO 10 mg HS [facility] Administration Folic Acid 1 mg 08/14/17 10:00 08/17/17 13:53 Folic Acid - PO 1 mg DAILY [facility] Administration Heparin Sodium (Porcine) 5,000 unit 08/14/17 10:00 08/17/17 11:12 Heparin - SQ Not Given BID [facility] Levothyroxine Sodium 25 mcg 08/14/17 07:00 08/17/17 06:36 Synthroid - PO Not Given DAILY@0700 [facility] Metoprolol Succinate 12.5 mg 08/14/17 10:00 08/17/17 13:53 Toprol Xl - PO Not Given DAILY [facility] Midodrine 5 mg 08/16/17 14:00 08/17/17 13:52 Proamatine - PO 5 mg TID-MID [facility] Administration Sevelamer Carbonate 1,600 mg 08/14/17 08:00 08/17/17 08:23 Renvela - PO 1,600 mg BID@0800,1730 [facility] Administration Tamsulosin HCl 0.4 mg 08/14/17 08:30 08/17/17 13:52 Flomax - PO 0.4 mg DAILY@0830 [facility] Administration ASSESSMENT/PLAN: 57M w/ hx of COPD on home O2, CHF, pleural effusions requiring drainage, ESRD on HD (T//), pulmonary HTN, endocarditis, MR and TR s/p MV and TV repair, HTN , HLD, anemia, ASD, and TIA presenting with one week of SOB and one day of lightheadedness. #acute SOB -low suspicion for PNA given lack of fever and leukocytosis. Abx per ID. -likely 2/2 interval increase in pleural effusion and atelectasis -BD -solumedrol -incentive spirometry -pt to receive thoracentesis via IR kishan am Rest of care per medical team Plan discussed with attending, Dr. Zepeda. Dispo: We will continue to follow the patient. Thank you for this consultative opportunity. -Colin Hernandez MD PGY1 Pulmonology Team Visit type - Emergency Visit Emergency Visit: Yes ED Registration Date: 08/13/17 Care time: The patient presented to the Emergency Department on the above date and was hospitalized for further evaluation of their emergent condition. - New Patient This patient is new to me today: No - Critical Care Critical Care patient: No
--- NOTE | 2017-08-17 17:21 | PN ---
Progress Note, Physician History of Present Illness: seen and examined today in nad. no overnight events. no new complaints. states overall feeling better. - Current Medication List Current Medications: Active Medications Acetaminophen (Tylenol -) 650 mg PO Q6H PRN PRN Reason: FEVER OR PAIN Albuterol/Ipratropium (Duoneb -) 1 amp NEB Q4H PRN PRN Reason: SHORTNESS OF BREATH Last Admin: 08/17/17 08:11 Dose: 1 amp Calcium Acetate (Phoslo -) 667 mg PO TIDCM [facility] Last Admin: 08/17/17 13:52 Dose: 667 mg Cyclobenzaprine HCl (Flexeril -) 10 mg PO HS [facility] Last Admin: 08/16/17 21:37 Dose: 10 mg Folic Acid (Folic Acid -) 1 mg PO DAILY [facility] Last Admin: 08/17/17 13:53 Dose: 1 mg Heparin Sodium (Porcine) (Heparin -) 5,000 unit SQ BID [facility] Last Admin: 08/17/17 11:12 Dose: Not Given Levothyroxine Sodium (Synthroid -) 25 mcg PO DAILY@0700 [facility] Last Admin: 08/17/17 06:36 Dose: Not Given Metoprolol Succinate (Toprol Xl -) 12.5 mg PO DAILY [facility] Last Admin: 08/17/17 13:53 Dose: Not Given Midodrine (Proamatine -) 5 mg PO TID-MID [facility] Last Admin: 08/17/17 13:52 Dose: 5 mg Sevelamer Carbonate (Renvela -) 1,600 mg PO BID@0800,1730 [facility] Last Admin: 08/17/17 08:23 Dose: 1,600 mg Tamsulosin HCl (Flomax -) 0.4 mg PO DAILY@0830 [facility] Last Admin: 08/17/17 13:52 Dose: 0.4 mg - Objective Vital Signs: Vital Signs Temperature 97.6 F 08/17/17 14:35 Pulse Rate 85 08/17/17 14:35 Respiratory Rate 18 08/17/17 14:35 Blood Pressure 149/70 08/17/17 14:35 O2 Sat by Pulse Oximetry (%) 90 L 08/17/17 10:00 Constitutional: Yes: No Distress, Calm Eyes: Yes: Conjunctiva Clear, EOM Intact, PERRL HENT: Yes: Atraumatic, Normocephalic Neck: Yes: Supple, Trachea Midline Cardiovascular: Yes: Regular Rate and Rhythm, Murmur, S1, S2. No: Bradycardia, Tachycardia, Pulse Irregular, Bruit, JVD, Gallop, Rub, S3, S4, Varicosities Respiratory: Yes: Regular, Diminished. No: Rales, Rhonchi, SOB, Wheezes Gastrointestinal: Yes: Normal Bowel Sounds, Soft, Hernia. No: Distention, Tenderness Edema: No Peripheral Pulses WNL: Yes Neurological: Yes: Alert, Oriented Psychiatric: Yes: Alert, Oriented Labs: CBC, BMP 08/17/17 11:55 08/17/17 11:55 INR, PTT INR 1.14 (0.82-1.09) 08/13/17 13:10 - ....Imaging Chest X-ray: Report Reviewed, Image Reviewed EKG: Report Reviewed, Image Reviewed Other: Report Reviewed, Image Reviewed (tele-nsr, brief episodes nsvt longest 6 beats) Assessment/Plan IMP: SOB PNA, Pleural effusions ASD PAF NSVT REC: 1. SOB-PNA/Pleural effusions -planned for thoracentesis tomorrow -volume removal with HD as tolerates 2. ASD: -s/p MVR/TVR due to trans-septal puncture -Evaluated at [facility] for closure after occular TIA, deemed not a candidate for closure (Dr. [place] and Dr. Mc): ongoing cocaine use, poor compliance and concomitant valve dz -resume ASA after procedures -Repeat echo done thursday, no sig change from prior echo 3. PAF:NSR currently -Cont Toprol, not candidate for full AC due to poor compliance, drug use -HR control -resume ASA after procedures 4. NSVT:brief episodes unchanged from prior admissions -h/o non-obs CAD and normal LV systolic function -Toprol as BP tolerates -Keep K and Mg wnl -cont tele for now
--- NOTE | 2017-08-17 17:30 | PN ---
Progress Note (short form) - Note Progress Note: Renal follow up for ESRD on HD Pt seen and examined during isolated UF earlier today BP stable goal UF is 2L no acute complaints Vital Signs Temperature 97.6 F 08/17/17 14:35 Pulse Rate 85 08/17/17 14:35 Respiratory Rate 18 08/17/17 14:35 Blood Pressure 149/70 08/17/17 14:35 O2 Sat by Pulse Oximetry (%) 90 L 08/17/17 10:00 Intake & Output 08/14/17 08/15/17 08/16/17 08/17/17 23:59 23:59 23:59 23:59 Intake Total 1280 1020 900 10 Balance 1280 1020 900 10 Weight 73.482 kg 73.085 kg NAD dec BS at lung bases RRR 1+ edema in LE CBC, BMP 08/17/17 11:55 08/17/17 11:55 Current Medications Acetaminophen (Tylenol -) 650 mg PO Q6H PRN PRN Reason: FEVER OR PAIN Albuterol/Ipratropium (Duoneb -) 1 amp NEB Q4H PRN PRN Reason: SHORTNESS OF BREATH Last Admin: 08/17/17 08:11 Dose: 1 amp Calcium Acetate (Phoslo -) 667 mg PO TIDCM [facility] Last Admin: 08/17/17 13:52 Dose: 667 mg Cyclobenzaprine HCl (Flexeril -) 10 mg PO HS [facility] Last Admin: 08/16/17 21:37 Dose: 10 mg Folic Acid (Folic Acid -) 1 mg PO DAILY [facility] Last Admin: 08/17/17 13:53 Dose: 1 mg Heparin Sodium (Porcine) (Heparin -) 5,000 unit SQ BID [facility] Last Admin: 08/17/17 11:12 Dose: Not Given Levothyroxine Sodium (Synthroid -) 25 mcg PO DAILY@0700 [facility] Last Admin: 08/17/17 06:36 Dose: Not Given Metoprolol Succinate (Toprol Xl -) 12.5 mg PO DAILY [facility] Last Admin: 08/17/17 13:53 Dose: Not Given Midodrine (Proamatine -) 5 mg PO TID-MID [facility] Last Admin: 08/17/17 13:52 Dose: 5 mg Sevelamer Carbonate (Renvela -) 1,600 mg PO BID@0800,1730 [facility] Last Admin: 08/17/17 08:23 Dose: 1,600 mg Tamsulosin HCl (Flomax -) 0.4 mg PO DAILY@0830 [facility] Last Admin: 08/17/17 13:52 Dose: 0.4 mg 57 year old Gentleman with PMhx of ESRD on HD (TTS), CHF, Valvular heart diesase s/p MV/TV repeair, Hx of Hypertension, ASD, TIA who preented with complaints of weakness and SOB and found to have PNA and low BP #Subacute inflamation of thorasic spine + positive blood culture culture grew coag negative staph holding Abx as per ID for IR biopsy of thorasic spine #Moderate to large pleural effusion will unlikely be able to remove with UF/HD will require thoracentesis #Hypotension chronic in nature, hold antihypertensives continue Midodrine 5mg TID #ESRD on HD tolerating isolated UF today for HD tomorrow #CHF Cardiology following #CKD related Anemia Goal Hgb > 10 will give MARCO ANTONIO as needed Thank you Abdirashid Guthrie DO
--- NOTE | 2017-08-17 18:57 | PN ---
Progress Note, Physician History of Present Illness: Pt c/o lt shoulder pain wc has been present for more than 6 months - Current Medication List Current Medications: Active Medications Acetaminophen (Tylenol -) 650 mg PO Q6H PRN PRN Reason: FEVER OR PAIN Albuterol/Ipratropium (Duoneb -) 1 amp NEB Q4H PRN PRN Reason: SHORTNESS OF BREATH Last Admin: 08/17/17 08:11 Dose: 1 amp Calcium Acetate (Phoslo -) 667 mg PO TIDCM [facility] Last Admin: 08/17/17 17:37 Dose: 667 mg Cyclobenzaprine HCl (Flexeril -) 10 mg PO HS [facility] Last Admin: 08/16/17 21:37 Dose: 10 mg Epoetin Cornelio (Procrit -) 10,000 unit IVPUSH ONCE ONE Stop: 08/18/17 06:01 Folic Acid (Folic Acid -) 1 mg PO DAILY [facility] Last Admin: 08/17/17 13:53 Dose: 1 mg Heparin Sodium (Porcine) (Heparin -) 5,000 unit SQ BID [facility] Last Admin: 08/17/17 11:12 Dose: Not Given Levothyroxine Sodium (Synthroid -) 25 mcg PO DAILY@0700 [facility] Last Admin: 08/17/17 06:36 Dose: Not Given Metoprolol Succinate (Toprol Xl -) 12.5 mg PO DAILY [facility] Last Admin: 08/17/17 17:37 Dose: 12.5 mg Midodrine (Proamatine -) 5 mg PO TID-MID [facility] Last Admin: 08/17/17 17:37 Dose: 5 mg Sevelamer Carbonate (Renvela -) 1,600 mg PO BID@0800,1730 [facility] Last Admin: 08/17/17 17:38 Dose: 1,600 mg Tamsulosin HCl (Flomax -) 0.4 mg PO DAILY@0830 [facility] Last Admin: 08/17/17 13:52 Dose: 0.4 mg - Objective Vital Signs: Vital Signs Temperature 97.6 F 08/17/17 14:35 Pulse Rate 85 08/17/17 14:35 Respiratory Rate 18 08/17/17 14:35 Blood Pressure 149/70 08/17/17 14:35 O2 Sat by Pulse Oximetry (%) 90 L 08/17/17 10:00 Constitutional: Yes: No Distress Neck: Yes: WNL, Supple Cardiovascular: Yes: WNL, Regular Rate and Rhythm Respiratory: Yes: Diminished Gastrointestinal: Yes: WNL, Normal Bowel Sounds, Soft Labs: CBC, BMP 08/17/17 11:55 08/17/17 11:55 INR, PTT INR 1.14 (0.82-1.09) 08/13/17 13:10 Problem List - Problems (1) Vertebral osteomyelitis Assessment/Plan: Patient found to have erosion of T9-T10 Patient seen by neurosurgery and consult noted Patient for CT scan guided biopsy of the vertebrae to rule out osteo- (2) Acute dyspnea Assessment/Plan: Pt w/ lt sided pleural effusion Will arrange for thoracentesis w/ IR for am Cont duoneb Cont IV vanco for pneumonia Code(s): R06.00 - DYSPNEA, UNSPECIFIED (3) Chronic left shoulder pain Assessment/Plan: Will check MRI lt shoulder Ortho consult Code(s): M25.512 - PAIN IN LEFT SHOULDER; G89.29 - OTHER CHRONIC PAIN (4) Acute on chronic combined systolic and diastolic CHF, NYHA class 4 Assessment/Plan: Diuretics on hold due to hypotension As per cardio Patient is not a candidate for closure Code(s): I50.43 - ACUTE ON CHRONIC COMBINED SYSTOLIC AND DIASTOLIC HRT FAIL (5) ESRD (end stage renal disease) on dialysis Assessment/Plan: Dialysis as per renal Code(s): N18.6 - END STAGE RENAL DISEASE; Z99.2 - DEPENDENCE ON RENAL DIALYSIS (6) Anemia in CKD (chronic kidney disease) Code(s): N18.9 - CHRONIC KIDNEY DISEASE, UNSPECIFIED; D63.1 - ANEMIA IN CHRONIC KIDNEY DISEASE (7) Atrial septal defect Assessment/Plan: Status post MVR/TVR As per cardio patient is not a candidate for closure Code(s): Q21.1 - ATRIAL SEPTAL DEFECT (8) Hypothyroid Assessment/Plan: Cont levothyroxine Code(s): E03.9 - HYPOTHYROIDISM, UNSPECIFIED (9) Paroxysmal A-fib Assessment/Plan: Heart rate controlled Patient not on anticoagulation due to poor compliance Code(s): I48.0 - PAROXYSMAL ATRIAL FIBRILLATION
[2017-08-17] MEDS: CYCLOBENZAPRINE HCL 10 MG TABLET (FP) PO SCH (21:28)
[2017-08-18] MEDS ORDERED: traMADol HCL 50 MG TABLET PO PRN (01:41)
[2017-08-18] MEDS: LEVOTHYROXINE NA 25 MCG TABLET (FP) PO SCH (06:19)
[2017-08-18] MEDS ORDERED: PT OWN MED DRAWER 7, Y5N ONE (07:41)
[2017-08-18] MEDS: TAMSULOSIN HCL 0.4 MG CAP.ER.24H (FP) PO SCH (07:48)
[2017-08-18] MEDS: SEVELAMER CARBONATE 800 MG TAB (FP) PO SCH ×2 (07:48→17:22)
[2017-08-18] MEDS: CALCIUM ACETATE 667 MG CAPSULE (FP) PO SCH ×3 (07:48→17:22)
--- NOTE | 2017-08-18 08:42 | PN ---
Progress Note (short form) - Note Progress Note: NEUROSURGERY Some LBP chronic L shoulder pain Prior MRSA infection PE: Tmax 98 VSS HEENT- NC/AT; Neck- supple; Cor- RR; Lungs- decreased BS bases B; Abd-benign; Ext- R chest catheter, no sign of DVT Back- mild tenderness mid and lower lumbar spine CN- intact; Motor- 5/5 B UE/LE; Sensation- intact LT; DTR- 2+ Blood culture- 1/4 gram + cocci in clusters, sensitivity pending MRI T spine without- Heterogenous marrow signal changes (dialysis related); T9- 10 chronic endplate erosion with no paraspinal or epidural abscess; T6-7 disc space hyperintensity; small T5-6 disc bulge; cervical ddd Subacute-chronic T9-10 discitis/osteomyelitis vs DDD/endplate sclerosis/ nephrogenic sclerosis For CT guided Bx/gram stain/culture/path of T9-10 The above d/w patient and he understands and concurs with recommendations For HD today
--- NOTE | 2017-08-18 08:54 | PN ---
Progress Note, Physician Chief Complaint: CT and MRI reviewed Neurosurgery input reviewed - Current Medication List Current Medications: Active Medications Acetaminophen (Tylenol -) 650 mg PO Q6H PRN PRN Reason: FEVER OR PAIN Albuterol/Ipratropium (Duoneb -) 1 amp NEB Q4H PRN PRN Reason: SHORTNESS OF BREATH Last Admin: 08/17/17 08:11 Dose: 1 amp Calcium Acetate (Phoslo -) 667 mg PO [facility] Last Admin: 08/18/17 07:48 Dose: 667 mg Cyclobenzaprine HCl (Flexeril -) 10 mg PO HS [facility] Last Admin: 08/17/17 21:28 Dose: 10 mg Epoetin Cornelio (Procrit -) 10,000 unit IVPUSH ONCE ONE Stop: 08/18/17 06:01 Folic Acid (Folic Acid -) 1 mg PO DAILY [facility] Last Admin: 08/17/17 13:53 Dose: 1 mg Heparin Sodium (Porcine) (Heparin -) 5,000 unit SQ BID [facility] Last Admin: 08/17/17 21:19 Dose: Not Given Levothyroxine Sodium (Synthroid -) 25 mcg PO DAILY@0700 [facility] Last Admin: 08/18/17 06:19 Dose: Not Given Metoprolol Succinate (Toprol Xl -) 12.5 mg PO DAILY [facility] Last Admin: 08/17/17 17:37 Dose: 12.5 mg Midodrine (Proamatine -) 5 mg PO TID-MID [facility] Last Admin: 08/17/17 17:37 Dose: 5 mg Sevelamer Carbonate (Renvela -) 1,600 mg PO BID@0800,1730 [facility] Last Admin: 08/18/17 07:48 Dose: 1,600 mg Tamsulosin HCl (Flomax -) 0.4 mg PO DAILY@0830 [facility] Last Admin: 08/18/17 07:48 Dose: 0.4 mg Tramadol HCl (Ultram -) 50 mg PO Q12H PRN Last Admin: 08/18/17 01:44 Dose: 50 mg - Objective Vital Signs: Vital Signs Temperature 97.3 F L 08/18/17 06:17 Pulse Rate 65 08/18/17 06:17 Respiratory Rate 20 08/18/17 06:17 Blood Pressure 84/60 08/18/17 06:17 O2 Sat by Pulse Oximetry (%) 93 L 08/17/17 19:43 Constitutional: Yes: No Distress Cardiovascular: Yes: Regular Rate and Rhythm Respiratory: Yes: Other (decreased breath sounds at bases) Gastrointestinal: Yes: Soft Edema: Yes Edema: LLE: 1+, RLE: 1+ Neurological: Yes: Alert, Oriented Labs: CBC, BMP 08/17/17 11:55 08/17/17 11:55 INR, PTT INR 1.14 (0.82-1.09) 08/13/17 13:10 - ....Imaging EKG: Image Reviewed (TELE: NSR, short self limited runs NSVT ( 3-5 beats)) Assessment/Plan IMP: SOB PNA, Pleural effusions ASD PAF NSVT Chronic/subacute T9-10 discitis? REC: 1. SOB-PNA/Pleural effusions -thoracentesis as needed for sx improvement -volume removal with HD as tolerates 2. ASD: -s/p MVR/TVR due to trans-septal puncture -Evaluated at [facility] for closure after occular TIA, deemed not a candidate for closure (Dr. Washington and Dr. Mc): ongoing cocaine use, poor compliance and concomitant valve dz -resume ASA after procedures -Repeat echo done thursday, no sig change from prior echo 3. PAF:NSR currently -Cont Toprol, not candidate for full AC due to poor compliance, drug use -HR control -resume ASA after procedures 4. NSVT:brief episodes unchanged from prior admissions -h/o non-obs CAD and normal LV systolic function -Toprol as BP tolerates -Keep K and Mg wnl -cont tele for now 5. Chronic/subacute T9-10 discitis: -As per N-surgery 6. ?Bacteremia: -09/10 bottles, repeat cultures negative -Possible contaminant, ID following
--- NOTE | 2017-08-18 09:03 | PN ---
Progress Note (short form) - Note Progress Note: quite comfortable today no complaints Vital Signs Period Temp Pulse Resp BP Sys/Anderson Pulse Ox Last 24 Hr 97.2 F-98.5 F 62-91 18-20 75-149/43-79 93 cor-rrr lungs decreased bs at left base abd soft,nt ext left arm unchanged +PC CBC, BMP 08/18/17 09:45 08/18/17 09:45 Laboratory Tests 08/15/17 08/15/17 12:30 12:30 ESR 20 C-Reactive Protein 0.9 H D Microbiology 08/15/17 12:30 Blood - Pre-Dialysis Blood Culture - Preliminary NO GROWTH OBTAINED AFTER 48 HOURS, INCUBATION TO CONTINUE FOR 3 DAYS. 08/15/17 12:30 Blood - Pre-Dialysis Blood Culture - Preliminary Pending Organism 08/16/17 09:03 Blood - Peripheral Venous Blood Culture - Preliminary NO GROWTH OBTAINED AFTER 24 HOURS, INCUBATION TO CONTINUE FOR 4 DAYS. 08/16/17 08:58 Blood - Peripheral Venous Blood Culture - Preliminary NO GROWTH OBTAINED AFTER 24 HOURS, INCUBATION TO CONTINUE FOR 4 DAYS. a/p r/o vertebral osteo-t9/10 possible discitis called micro- blood culture isolate is coag neg staph, repeat blood cultures sent before vanco was given are negative hold further vancomycin per Neurosurgery- plan for IR biopsy history endocarditis history of bioMVR/TVR history of MRSA bacteremia 2016 recurrent effusion- f/u pulmonary for thoracentesis esrd/hd-via PC Problem List - Problems (1) Pleural effusion Code(s): J90 - PLEURAL EFFUSION, NOT ELSEWHERE CLASSIFIED (2) H/O mitral valve repair Code(s): Z98.890 - OTHER SPECIFIED POSTPROCEDURAL STATES (4) ESRD (end stage renal disease) on dialysis Code(s): N18.6 - END STAGE RENAL DISEASE; Z99.2 - DEPENDENCE ON RENAL DIALYSIS
[2017-08-18] MEDS ORDERED: EPOETIN ALFA 10,000 UNIT/1 ML VIAL IVPUSH ONE (09:30)
[2017-08-18 10:11] LABS: MCH 31.1 pg (25.7-33.7); MEAN CELL VOLUME 97.1 fl (80-96); MEAN PLT VOLUME 9.5 fl (7.5-11.1); PLATELET COUNT 171 K/MM3 (134-434); RDW 18.1 % (11.9-15.9); WHITE BLOOD COUNT 3.9 K/mm3 (4.0-10.0)
[2017-08-18] MEDS: HEPARIN NA (PORCINE) 5,000 UNITS/ML 1ML VIAL SQ SCH ×2 (10:31→21:24)
[2017-08-18 10:39] LABS: ANION GAP 10 (8-16); CALCIUM 8.1 mg/dL (8.5-10.1); CO2 28 mmol/L (21-32); GLUCOSE,RANDOM 95 mg/dL (74-106); PHOSPHOROUS 5.8 mg/dL (2.5-4.9)
[2017-08-18 10:47] LABS: CREATININE 9.2 mg/dL (0.7-1.3)
[2017-08-18] MEDS: MIDODRINE HCL 5 MG TABLET PO SCH ×3 (11:04→17:22)
--- NOTE | 2017-08-18 11:05 | PN ---
Teaching Attending Note Name of Resident: Colin Hernandez ATTENDING PHYSICIAN STATEMENT I saw and evaluated the patient. I reviewed the resident's note and discussed the case with the resident. I agree with the resident's findings and plan as documented. ALERT,ON DIALYSIS,LESS DYSPNEIC. ANTIBIOTICS DISCONTINUED BY ID IMP DYSPNEA ?CHF COPD LEFT PLEURAL EFFUSION PREVIOUS CHEMISTRIES C/W TRANSUDATE PULMONARY HTN VALVULAR HD ESRD ON HD PLAN HD PER RENAL O2 INHALED BRONCHODILATORS ANTIBIOTICS PER ID THORACENTESIS BX T9-T10 DISC DR HELLER Problem List - Problems (1) Acute dyspnea Code(s): R06.00 - DYSPNEA, UNSPECIFIED (2) Acute on chronic combined systolic and diastolic CHF, NYHA class 4 Code(s): I50.43 - ACUTE ON CHRONIC COMBINED SYSTOLIC AND DIASTOLIC HRT FAIL (3) Anemia in CKD (chronic kidney disease) Code(s): N18.9 - CHRONIC KIDNEY DISEASE, UNSPECIFIED; D63.1 - ANEMIA IN CHRONIC KIDNEY DISEASE (4) CHF (congestive heart failure) Code(s): I50.9 - HEART FAILURE, UNSPECIFIED (5) COPD (chronic obstructive pulmonary disease) Code(s): J44.9 - CHRONIC OBSTRUCTIVE PULMONARY DISEASE, UNSPECIFIED (6) Dyspnea Code(s): R06.00 - DYSPNEA, UNSPECIFIED (7) ESRD (end stage renal disease) on dialysis Code(s): N18.6 - END STAGE RENAL DISEASE; Z99.2 - DEPENDENCE ON RENAL DIALYSIS (8) Fluid overload Code(s): E87.70 - FLUID OVERLOAD, UNSPECIFIED Qualifiers: Hypervolemia type: unspecified Qualified Code(s): E87.70 - Fluid overload, unspecified (9) H/O mitral valve repair Code(s): Z98.890 - OTHER SPECIFIED POSTPROCEDURAL STATES (10) Hypotension Code(s): I95.9 - HYPOTENSION, UNSPECIFIED (11) SOB (shortness of breath) Code(s): R06.02 - SHORTNESS OF BREATH (12) Mitral regurgitation Code(s): I34.0 - NONRHEUMATIC MITRAL (VALVE) INSUFFICIENCY Qualifiers: Cardiac valve disease etiology: nonrheumatic Qualified Code(s): I34.0 - Nonrheumatic mitral (valve) insufficiency (13) Pleural effusion Code(s): J90 - PLEURAL EFFUSION, NOT ELSEWHERE CLASSIFIED (14) Pulmonary hypertension Code(s): I27.2 - OTHER SECONDARY PULMONARY HYPERTENSION * DO NOT USE * Problem List - Problems (1) Acute dyspnea Code(s): R06.00 - DYSPNEA, UNSPECIFIED (2) Acute on chronic combined systolic and diastolic CHF, NYHA class 4 Code(s): I50.43 - ACUTE ON CHRONIC COMBINED SYSTOLIC AND DIASTOLIC HRT FAIL (3) Anemia in CKD (chronic kidney disease) Code(s): N18.9 - CHRONIC KIDNEY DISEASE, UNSPECIFIED; D63.1 - ANEMIA IN CHRONIC KIDNEY DISEASE (4) CHF (congestive heart failure) Code(s): I50.9 - HEART FAILURE, UNSPECIFIED (5) COPD (chronic obstructive pulmonary disease) Code(s): J44.9 - CHRONIC OBSTRUCTIVE PULMONARY DISEASE, UNSPECIFIED (6) Dyspnea Code(s): R06.00 - DYSPNEA, UNSPECIFIED (7) ESRD (end stage renal disease) on dialysis Code(s): N18.6 - END STAGE RENAL DISEASE; Z99.2 - DEPENDENCE ON RENAL DIALYSIS (8) Fluid overload Code(s): E87.70 - FLUID OVERLOAD, UNSPECIFIED Qualifiers: Hypervolemia type: unspecified Qualified Code(s): E87.70 - Fluid overload, unspecified (9) H/O mitral valve repair Code(s): Z98.890 - OTHER SPECIFIED POSTPROCEDURAL STATES (10) Hypotension Code(s): I95.9 - HYPOTENSION, UNSPECIFIED (11) SOB (shortness of breath) Code(s): R06.02 - SHORTNESS OF BREATH (12) Mitral regurgitation Code(s): I34.0 - NONRHEUMATIC MITRAL (VALVE) INSUFFICIENCY Qualifiers: Cardiac valve disease etiology: nonrheumatic Qualified Code(s): I34.0 - Nonrheumatic mitral (valve) insufficiency (13) Pleural effusion Code(s): J90 - PLEURAL EFFUSION, NOT ELSEWHERE CLASSIFIED (14) Pulmonary hypertension Code(s): I27.2 - OTHER SECONDARY PULMONARY HYPERTENSION * DO NOT USE * SUBJECTIVE: OBJECTIVE: ASSESSMENT AND PLAN: Problem List - Problems (1) Acute dyspnea Code(s): R06.00 - DYSPNEA, UNSPECIFIED (2) Acute on chronic combined systolic and diastolic CHF, NYHA class 4 Code(s): I50.43 - ACUTE ON CHRONIC COMBINED SYSTOLIC AND DIASTOLIC HRT FAIL (3) Anemia in CKD (chronic kidney disease) Code(s): N18.9 - CHRONIC KIDNEY DISEASE, UNSPECIFIED; D63.1 - ANEMIA IN CHRONIC KIDNEY DISEASE (4) CHF (congestive heart failure) Code(s): I50.9 - HEART FAILURE, UNSPECIFIED (5) COPD (chronic obstructive pulmonary disease) Code(s): J44.9 - CHRONIC OBSTRUCTIVE PULMONARY DISEASE, UNSPECIFIED (6) Dyspnea Code(s): R06.00 - DYSPNEA, UNSPECIFIED (7) ESRD (end stage renal disease) on dialysis Code(s): N18.6 - END STAGE RENAL DISEASE; Z99.2 - DEPENDENCE ON RENAL DIALYSIS (8) Fluid overload Code(s): E87.70 - FLUID OVERLOAD, UNSPECIFIED Qualifiers: Hypervolemia type: unspecified Qualified Code(s): E87.70 - Fluid overload, unspecified (9) H/O mitral valve repair Code(s): Z98.890 - OTHER SPECIFIED POSTPROCEDURAL STATES (10) Hypotension Code(s): I95.9 - HYPOTENSION, UNSPECIFIED (11) SOB (shortness of breath) Code(s): R06.02 - SHORTNESS OF BREATH (12) Mitral regurgitation Code(s): I34.0 - NONRHEUMATIC MITRAL (VALVE) INSUFFICIENCY Qualifiers: Cardiac valve disease etiology: nonrheumatic Qualified Code(s): I34.0 - Nonrheumatic mitral (valve) insufficiency (13) Pleural effusion Code(s): J90 - PLEURAL EFFUSION, NOT ELSEWHERE CLASSIFIED (14) Pulmonary hypertension Code(s): I27.2 - OTHER SECONDARY PULMONARY HYPERTENSION * DO NOT USE *
--- NOTE | 2017-08-18 12:29 | PN ---
Progress Note (short form) - Note Progress Note: Renal follow up for ESRD on HD Pt seen and examined during dialysis pt wants to reduce treatment time to 2.5 hours AVF with good flow, BP low goal UF is 2.5L Vital Signs Temperature 98 F 08/18/17 10:00 Pulse Rate 75 08/18/17 12:13 Respiratory Rate 18 08/18/17 12:13 Blood Pressure 93/57 08/18/17 12:13 O2 Sat by Pulse Oximetry (%) 93 L 08/17/17 19:43 Intake & Output 08/15/17 08/16/17 08/17/17 08/18/17 23:59 23:59 23:59 23:59 Intake Total 1020 900 10 Balance 1020 900 10 Weight 73.085 kg NAD dec BS at lung bases RRR 1+ edema in LE CBC, BMP 08/18/17 09:45 08/18/17 09:45 Current Medications Acetaminophen (Tylenol -) 650 mg PO Q6H PRN PRN Reason: FEVER OR PAIN Albuterol/Ipratropium (Duoneb -) 1 amp NEB Q4H PRN PRN Reason: SHORTNESS OF BREATH Last Admin: 08/17/17 08:11 Dose: 1 amp Calcium Acetate (Phoslo -) 667 mg PO TIDCM [facility] Last Admin: 08/18/17 07:48 Dose: 667 mg Cyclobenzaprine HCl (Flexeril -) 10 mg PO HS [facility] Last Admin: 08/17/17 21:28 Dose: 10 mg Folic Acid (Folic Acid -) 1 mg PO DAILY [facility] Last Admin: 08/17/17 13:53 Dose: 1 mg Heparin Sodium (Porcine) (Heparin -) 5,000 unit SQ BID [facility] Last Admin: 08/18/17 10:31 Dose: Not Given Levothyroxine Sodium (Synthroid -) 25 mcg PO DAILY@0700 [facility] Last Admin: 08/18/17 06:19 Dose: Not Given Metoprolol Succinate (Toprol Xl -) 12.5 mg PO DAILY [facility] Last Admin: 08/17/17 17:37 Dose: 12.5 mg Midodrine (Proamatine -) 5 mg PO TID-MID [facility] Last Admin: 08/18/17 11:04 Dose: 5 mg Sevelamer Carbonate (Renvela -) 1,600 mg PO BID@0800,1730 [facility] Last Admin: 08/18/17 07:48 Dose: 1,600 mg Tamsulosin HCl (Flomax -) 0.4 mg PO DAILY@0830 [facility] Last Admin: 08/18/17 07:48 Dose: 0.4 mg Tramadol HCl (Ultram -) 50 mg PO Q12H PRN Last Admin: 08/18/17 01:44 Dose: 50 mg 57 year old Gentleman with PMhx of ESRD on HD (TTS), CHF, Valvular heart diesase s/p MV/TV repeair, Hx of Hypertension, ASD, TIA who preented with complaints of weakness and SOB and found to have PNA and low BP #Subacute inflamation of thorasic spine + positive blood culture culture grew coag negative staph holding Abx as per ID IR biopsy to be done f/u final culture reports CRP and ESR are WNL #Moderate to large pleural effusion for thoracentesis Pulmonary following #Hypotension continue Midodrine 5mg TID #ESRD on HD tolerating dialysis well 2.5L UF today, 2L UF yesterday #CHF Cardiology following #CKD related Anemia Goal Hgb > 10 MARCO ANTONIO with HD Thank you Abdirashid Guthrie DO
[2017-08-18] MEDS: FOLIC ACID 1 MG TABLET (FP) PO SCH (13:11)
[2017-08-18] MEDS: METOPROLOL SUCCINATE 25 MG TAB.SR.24H (FP) PO SCH (13:12)
--- NOTE | 2017-08-18 16:27 | PN ---
Physical Exam: SUBJECTIVE: Patient seen and examined. No acute events overnight. Pt has no new complaints. He states that SOB is same as yesterday. OBJECTIVE: Vital Signs Period Temp Pulse Resp BP Sys/Anderson Pulse Ox Last 24 Hr 97.2 F-98.5 F 62-83 18-20 75-107/43-67 93-93 GENERAL: middle aged male, sitting in bed, awake, alert, and fully oriented, in no acute distress. HEENT: NC, AT, EOMI NECK: Normal range of motion, supple without lymphadenopathy, JVD, or masses. LUNGS: decreased lung sounds over left lung, scattered rales HEART: Regular rate and rhythm, normal S1 and S2 without murmur, rub or gallop. ABDOMEN: reducible umbilical hernia, soft, NT MUSCULOSKELETAL: b/l 2+ LE edema NEUROLOGICAL: Cranial nerves II-XII intact. Normal speech. PSYCHIATRIC: less agitated compared to yesterday SKIN: Warm, dry, normal turgor, no rashes or lesions noted. Laboratory Results - last 24 hr 08/18/17 08/18/17 09:45 09:45 WBC 3.9 L RBC 3.21 L Hgb 10.0 L Hct 31.2 L MCV 97.1 H MCH 31.1 MCHC 32.0 RDW 18.1 H Plt Count 171 MPV 9.5 Sodium 142 Potassium 4.8 Chloride 104 Carbon Dioxide 28 Anion Gap 10 BUN 33 H D Creatinine 9.2 H* Random Glucose 95 Calcium 8.1 L Phosphorus 5.8 H Active Medications Generic Name Dose Route Start Last Admin Trade Name Freq PRN Reason Stop Dose Admin Acetaminophen 650 mg 08/13/17 23:08 Tylenol - PO Q6H PRN FEVER OR PAIN Albuterol/Ipratropium 1 amp 08/13/17 23:08 08/17/17 08:11 Duoneb - NEB 1 amp Q4H PRN Administration SHORTNESS OF BREATH Calcium Acetate 667 mg 08/14/17 08:00 08/18/17 13:11 Phoslo - PO 667 mg TIDCM [facility] Administration Cyclobenzaprine HCl 10 mg 08/14/17 22:00 08/17/17 21:28 Flexeril - PO 10 mg HS [facility] Administration Folic Acid 1 mg 08/14/17 10:00 08/18/17 13:11 Folic Acid - PO 1 mg DAILY [facility] Administration Heparin Sodium (Porcine) 5,000 unit 08/14/17 10:00 08/18/17 10:31 Heparin - SQ Not Given BID [facility] Levothyroxine Sodium 25 mcg 08/14/17 07:00 08/18/17 06:19 Synthroid - PO Not Given DAILY@0700 [facility] Metoprolol Succinate 12.5 mg 08/14/17 10:00 08/18/17 13:12 Toprol Xl - PO 12.5 mg DAILY [facility] Administration Midodrine 5 mg 08/16/17 14:00 08/18/17 13:11 Proamatine - PO 5 mg TID-MID [facility] Administration Sevelamer Carbonate 1,600 mg 08/14/17 08:00 08/18/17 07:48 Renvela - PO 1,600 mg BID@0800,1730 [facility] Administration Tamsulosin HCl 0.4 mg 08/14/17 08:30 08/18/17 07:48 Flomax - PO 0.4 mg DAILY@0830 [facility] Administration Tramadol HCl 50 mg 08/18/17 01:41 08/18/17 01:44 Ultram - PO 50 mg Q12H PRN Administration ASSESSMENT/PLAN: 57M w/ hx of COPD on home O2, CHF, pleural effusions requiring drainage, ESRD on HD (//), pulmonary HTN, endocarditis, MR and TR s/p MV and TV repair, HTN , HLD, anemia, ASD, and TIA presenting with one week of SOB and one day of lightheadedness. #acute SOB -likely 2/2 interval increase in pleural effusion and atelectasis -BD -incentive spirometry -pt to receive thoracentesis via IR today -abx per ID Rest of care per medical team Plan discussed with attending, Dr. Zepeda. Dispo: We will continue to follow the patient. Thank you for this consultative opportunity. -Colin Hernandez MD PGY1 Pulmonology Team Visit type - Emergency Visit Emergency Visit: Yes ED Registration Date: 08/13/17 Care time: The patient presented to the Emergency Department on the above date and was hospitalized for further evaluation of their emergent condition. - New Patient This patient is new to me today: No - Critical Care Critical Care patient: No
[2017-08-18] MEDS: CYCLOBENZAPRINE HCL 10 MG TABLET (FP) PO SCH (21:46)
--- NOTE | 2017-08-18 23:06 | PN ---
Progress Note, Physician - Current Medication List Current Medications: Active Medications Acetaminophen (Tylenol -) 650 mg PO Q6H PRN PRN Reason: FEVER OR PAIN Albuterol/Ipratropium (Duoneb -) 1 amp NEB Q4H PRN PRN Reason: SHORTNESS OF BREATH Last Admin: 08/17/17 08:11 Dose: 1 amp Calcium Acetate (Phoslo -) 667 mg PO TIDCM [facility] Last Admin: 08/18/17 17:22 Dose: 667 mg Cyclobenzaprine HCl (Flexeril -) 10 mg PO HS [facility] Last Admin: 08/18/17 21:46 Dose: 10 mg Folic Acid (Folic Acid -) 1 mg PO DAILY [facility] Last Admin: 08/18/17 13:11 Dose: 1 mg Heparin Sodium (Porcine) (Heparin -) 5,000 unit SQ BID [facility] Last Admin: 08/18/17 21:24 Dose: Not Given Levothyroxine Sodium (Synthroid -) 25 mcg PO DAILY@0700 [facility] Last Admin: 08/18/17 06:19 Dose: Not Given Metoprolol Succinate (Toprol Xl -) 12.5 mg PO DAILY [facility] Last Admin: 08/18/17 13:12 Dose: 12.5 mg Midodrine (Proamatine -) 5 mg PO TID-MID [facility] Last Admin: 08/18/17 17:22 Dose: 5 mg Sevelamer Carbonate (Renvela -) 1,600 mg PO BID@0800,1730 [facility] Last Admin: 08/18/17 17:22 Dose: 1,600 mg Tamsulosin HCl (Flomax -) 0.4 mg PO DAILY@0830 [facility] Last Admin: 08/18/17 07:48 Dose: 0.4 mg Tramadol HCl (Ultram -) 50 mg PO Q12H PRN Last Admin: 08/18/17 01:44 Dose: 50 mg - Objective Vital Signs: Vital Signs Temperature 97.9 F 08/18/17 18:00 Pulse Rate 75 08/18/17 18:00 Respiratory Rate 19 08/18/17 18:00 Blood Pressure 96/64 08/18/17 18:00 O2 Sat by Pulse Oximetry (%) 93 L 08/18/17 09:00 Labs: CBC, BMP 08/18/17 09:45 08/18/17 09:45 INR, PTT INR 1.14 (0.82-1.09) 08/13/17 13:10 Problem List - Problems (2) Acute dyspnea Code(s): R06.00 - DYSPNEA, UNSPECIFIED (3) Chronic left shoulder pain Code(s): M25.512 - PAIN IN LEFT SHOULDER; G89.29 - OTHER CHRONIC PAIN (4) Acute on chronic combined systolic and diastolic CHF, NYHA class 4 Code(s): I50.43 - ACUTE ON CHRONIC COMBINED SYSTOLIC AND DIASTOLIC HRT FAIL (5) ESRD (end stage renal disease) on dialysis Code(s): N18.6 - END STAGE RENAL DISEASE; Z99.2 - DEPENDENCE ON RENAL DIALYSIS (6) Anemia in CKD (chronic kidney disease) Code(s): N18.9 - CHRONIC KIDNEY DISEASE, UNSPECIFIED; D63.1 - ANEMIA IN CHRONIC KIDNEY DISEASE (7) Atrial septal defect Code(s): Q21.1 - ATRIAL SEPTAL DEFECT (8) Hypothyroid Code(s): E03.9 - HYPOTHYROIDISM, UNSPECIFIED (9) Paroxysmal A-fib Code(s): I48.0 - PAROXYSMAL ATRIAL FIBRILLATION
[2017-08-18] MEDS ORDERED: ADENOSINE 6 MG/2 ML VIAL IVPUSH ONE ×3 (23:24→23:27)
[2017-08-18] MEDS ORDERED: dilTIAZem HCL 50 MG/10 ML - 10 ML VIAL IVPUSH ONE (23:55)
[2017-08-18] MEDS ORDERED: dilTIAZem HCL 125 MG/25 ML - 25 ML VIAL ONE (23:55)
[2017-08-19] MEDS ORDERED: SODIUM CHLORIDE 250 ML IV STA (00:05)
--- NOTE | 2017-08-19 00:29 | HOSP ---
Subjective - Review of Symptoms Subjective: chart reviewed; echo noted; dialysis today for 2hrs early in day rapid --> 190-200bpm, sat decreased to 93%, bp 102/72 6 adenosine 6 adenosine 12 adenosine --down to 120 then up to 150-160 15 cardizem --BP dipped to map of 63 76/56 at it's lowest --Small bolus up of 250cc ns; mindful due to esrd (lv func normal) ekg bmp mg phos la trop discussed with bryce who is covering for [facility] transferred to icu; substance abuse nurse accepted staff notified chart reviewed Physical Examination Vital Signs: Vital Signs Temperature 97.9 F 08/18/17 18:00 Pulse Rate 75 08/18/17 18:00 Respiratory Rate 19 08/18/17 18:00 Blood Pressure 96/64 08/18/17 18:00 O2 Sat by Pulse Oximetry (%) 93 L 08/18/17 09:00 Labs: CBC, BMP 08/18/17 09:45
[2017-08-19 00:42] LABS: BASOPHIL 1.9 % (0-2.0); EOSINOPHIL 10.1 % (0-4.5); MCH 31.4 pg (25.7-33.7); MCHC 31.6 g/dl (32.0-35.9); MEAN CELL VOLUME 99.2 fl (80-96); MEAN PLT VOLUME 9.7 fl (7.5-11.1); NEUTROPHILS 61.7 % (42.8-82.8); PLATELET COUNT 226 K/MM3 (134-434); RDW 18.5 % (11.9-15.9); WHITE BLOOD COUNT 5.9 K/mm3 (4.0-10.0)
[2017-08-19 00:50] LABS: INR 1.19 (0.82-1.09); PROTHROMBIN TIME (PATIENT) 13.4 SEC (9.98-11.88)
[2017-08-19 00:59] LABS: ANION GAP 10 (8-16); CALCIUM 7.7 mg/dL (8.5-10.1); CO2 28 mmol/L (21-32); CREATININE 6.7 mg/dL (0.7-1.3); GLUCOSE,RANDOM 120 mg/dL (74-106); PHOSPHOROUS 4.5 mg/dL (2.5-4.9)
[2017-08-19 01:01] LABS: TROPONIN I 0.06 ng/ml (0.00-0.05)
--- NOTE | 2017-08-19 01:11 | RAPID ---
Addendum entered and electronically signed by Marco Wilkinson, RESIDENT 08/19/17 01:11: ADDENDUM: Upon transfer to ICU, pt was still awake, alert, and had relief of symptoms however pt's HR increased to 160's with regular rhythm --BP 140/120 (due to some agitation) --Cardizem 15mg IVP given; pulse decreased to 105bpm in response --Repeat BP decreased appropriately however at lowest became MAP of 62 --Small bolus of 250cc NS given due to ESRD; LV function normal as per echo GEN: NAD, awake alert Lungs: CTA bilaterally, no accessory muscle use Cardiac: Tachycardic, regular rhythm no overt murmurs heard Abdomen: Soft, NT/ND EXT: No edema Pt currently stable at 82/56 MAP 63 with the 250cc bolus ongoing, pt awake, alert, with relief of symptoms; HR remaining at 102-105bpm, SpO2 98% --EKG shows atrial flutter with TWI inversions in inferior leads and old infarcts present in septal leads --Labs being drawn and will f/u Original Note: <Marco Wilkinson - Last Filed: 08/19/17 01:01> Physical Examination Vital Signs: Vital Signs Temperature 97.9 F 08/18/17 18:00 Pulse Rate 105 H 08/19/17 00:34 Respiratory Rate 19 08/19/17 00:34 Blood Pressure 84/54 08/19/17 00:34 O2 Sat by Pulse Oximetry (%) 93 L 08/18/17 09:00 Findings/Remarks: [employer] called overhead for patient who had a pulse rate of 190-200's on monitor and was experiencing some lightheadedness and dyspnea. Upon arrival pt was in moderate distress in bed, awake, complaining of difficulty breathing and some lightheadedness. Monitor at bedside showed an SVT to 200bpm. Pt is ESRD and had dialysis performed today for 2 hours earlier in day. Initial VS: 200 HR, BP 102/72, SpO2 93% on RA Rapid PE assessment: Gen: Moderate distress, awake, alert Cardiac: Tachycardic regular rhythm Lungs: Tachypneic, no coarse rhonchi heard, diminished breath sounds at R lower base Ext: Cap refill<2sec, no edema A/P SVT Chart reviewed; Echo noted - Small pericardial effusion <2cm, LV systolic function and size normal, diminished RV systolic function with pulmonary htn noted ICU night [employer] contacted to accept transfer to ICU, ICU nursing staff made aware Administer Adenosine 6mg IVP --Pt had minimal response to 124 without determining underlying rhythm; returned to HR of 190 Second adenosine 6mg IVP --Response with most likely atrial flutter underlying; returned to HR 194 Adenosine 12mg administered at this time --Response down to 110-120bpm with underlying rhythm seen to be atrial flutter BMP, Mg, Phos, Trop I, LA ordered EKG ordered Case discussed with Dr. Rangel who is covering for Dr. Jaswinder ordgers Case discussed with Dr. Smith who was also present at bedside Marco Wilkinson DO - Internal Medicine PGY-1 Labs: CBC, BMP 08/19/17 00:10 <Mabel Smith - Last Filed: 08/19/17 02:10> Physical Examination Vital Signs: Vital Signs Temperature 97.9 F 08/18/17 18:00 Pulse Rate 105 H 08/19/17 00:34 Respiratory Rate 19 08/19/17 00:34 Blood Pressure 84/54 08/19/17 00:34 O2 Sat by Pulse Oximetry (%) 100 08/19/17 00:05 Findings/Remarks: Aflutter Agree with resident note, currently rate controlled, cardio consulted - D/C BIPAP - Echo Repeat - Cardizem prn, if BP allows and HR climbs can consider Cardizem gtt - Repeat EKG/Trops - CC Time: 40 Minues Labs: CBC, BMP 08/19/17 00:10 08/19/17 00:10
--- NOTE | 2017-08-19 01:44 | CONSULT ---
Consult Consult Specialty:: Pulmonary critical care Reason for Consultation:: Afib with RVR - History of Present Illness Chief Complaint: Tachycardia History of Present Illness: 57M w/ hx of COPD on home O2, CHF, pleural effusions requiring drainage, ESRD on HD (T//), pulmonary HTN, endocarditis, MR and TR s/p MV and TV repair, HTN , HLD, anemia, ASD, and TIA who was admitted on 08/13 with SOB for a week prior to coming in. Was initially treated with abx for possible PNA however abx subsequently discontinued given low suspicion for infectious etiology of SOB. Pt also with pleural effusions, plan was to have thoracenthesis in IR. Has had two dialysis sessions last one being on 08/17 with removal of 2L of fluids. During his work up here was incidentally found to have erosion of T9-T10 and has been followed by neurosurgery for it. Overnight pt went into afib with RVR, given 2 doses of adenosine with no improvement. He was then given 15mg of cardizem and transferred to the ICU for further management. On arrival to ICU pt slightly hypotensive with BP of 80/50, however awake and talking. Plan to continue cardizem PO and IV as needed. Current Medications Acetaminophen (Tylenol -) 650 mg PO Q6H PRN PRN Reason: FEVER OR PAIN Calcium Acetate (Phoslo -) 667 mg PO TIDCM [facility] Chlorhexidine Gluconate (Hibiclens For Decolonization -) 1 applic TP HS [facility] Cyclobenzaprine HCl (Flexeril -) 10 mg PO HS [facility] Folic Acid (Folic Acid -) 1 mg PO DAILY [facility] Heparin Sodium (Porcine) (Heparin -) 5,000 unit SQ BID [facility] Levothyroxine Sodium (Synthroid -) 25 mcg PO DAILY@0700 [facility] Metoprolol Succinate (Toprol Xl -) 12.5 mg PO DAILY [facility] Midodrine (Proamatine -) 5 mg PO TID-MID [facility] Mupirocin (Bactroban Ointment (For Decolonization) -) 1 applic NS BID [facility] Stop: 08/24/17 09:59 Sevelamer Carbonate (Renvela -) 1,600 mg PO BID@0800,1730 [facility] Tamsulosin HCl (Flomax -) 0.4 mg PO DAILY@0830 [facility] Tramadol HCl (Ultram -) 50 mg PO Q12H PRN - Past Medical History Cardio/Vascular: Yes: CHF (Chronic diastolic HF, Severe Pulm HTN), HTN, Hyperlipdemia, Mitral Insufficiency (s/p MVR (bio)), Pulmonary Hypertension, Other (Severe Tricuspid regurgitation, Endocarditis s/p TVR/MVR, recurrent bacteremia) Pulmonary: Yes: Other (PHTN) Gastrointestinal: Yes: Ascites, Constipation Hepatobiliary: Yes: Hepatitis C Renal/: Yes: Renal Failure, Hemodialysis Psych: Yes: Addictions Musculoskeletal: Yes: Bursitis (left shoulder pain) - Past Surgical History Past Surgical History: Yes: AV Fistula/Graft, Hernia Repair (11/19) - Alcohol/Substance Use Hx Alcohol Use: No History of Substance Use: reports: Cocaine (last use 2 weeks ago), Marijuana - Smoking History Smoking history: Current every day smoker Have you smoked in the past 12 months: Yes Aproximately how many cigarettes per day: 3 - Social History ADL: Independent 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 History of Recent Travel: No Home Medications - Allergies Allergies/Adverse Reactions: Allergies Allergy/AdvReac Type Severity Reaction Status Date / Time Iodinated Contrast- Oral and Allergy Verified 08/13/17 11:04 IV Dye CONTRAST Allergy Hives Uncoded 08/13/17 11:04 - Home Medications Home Medications: Ambulatory Orders RX: Folic Acid 1 mg PO DAILY 09/11/16 RX: Sevelamer Carbonate [Renvela -] 1,600 mg PO BID 09/11/16 RX: Albuterol Sulfate 0.042% [Ventolin 0.042% (Half-Strength) -] 1 amp NEB TID PRN 04/22/17 RX: Cyclobenzaprine HCl [Flexeril -] 10 mg PO HS 04/22/17 RX: Tamsulosin HCl 0.4 mg PO DAILY 07/03/17 RX: Acetaminophen [Tylenol .Regular Strength -] 650 mg PO Q6H PRN tablet RX: Albuterol 2.5/Ipratropium 0.5 [Duoneb -] 1 amp NEB Q4H PRN amp 07/20/17 RX: Aspirin [ASA -] 81 mg PO DAILY tab.chew 07/20/17 RX: Calcium Acetate [Phoslo -] 667 mg PO TIDCM capsule 07/20/17 RX: Levothyroxine [Synthroid -] 25 mcg PO DAILY@0700 tablet 07/20/17 RX: Metoprolol Succinate [Toprol XL -] 12.5 mg PO DAILY tab.sr.24h 07/20/17 Family Disease History - Family Disease History Family Disease History: Other: Father ( of kidney failure), Mother (muscle problems), Sister (healthy and living, HTN) Physical Exam Vital Signs: Vital Signs Temperature 97.9 F 08/18/17 18:00 Pulse Rate 105 H 08/19/17 00:34 Respiratory Rate 19 08/19/17 00:34 Blood Pressure 84/54 08/19/17 00:34 O2 Sat by Pulse Oximetry (%) 100 08/19/17 00:05 Cardiovascular: Yes: Tachycardia Respiratory: Yes: CTA Bilaterally Gastrointestinal: Yes: WNL Breast(s): Yes: Other (R chest dialysis catheter c/d/i) Edema: Yes Neurological: Yes: Alert, Oriented Labs: CBC, BMP 08/19/17 00:10 08/19/17 00:10 Assessment/Plan SOB in the setting of pleural effusions ESRD on HD (last one 08/17) Afib with RVR Hypotension at baseline -cardiology following -cardizem IV prn for rapid afib -cont PO lopressor--> consider increasing dose -repeat TTE -replete electrolytes as needed -cont midodrine for hypotension -repeat CXR -d/c BiPAP -heparin SubQ PPX ANTONI Mcrae Critical Care time: 35 min
[2017-08-19] MEDS ORDERED: ACETAMINOPHEN 325 MG TABLET (FP) PO PRN (02:10)
[2017-08-19] MEDS ORDERED: traMADol HCL 50 MG TABLET PO PRN (02:10)
[2017-08-19] MEDS ORDERED: dilTIAZem HCL 50 MG/10 ML - 10 ML VIAL IVPUSH ONE ×2 (02:10→18:51)
[2017-08-19] MEDS ORDERED: ADENOSINE 6 MG/2 ML VIAL IVPUSH ONE (02:18)
[2017-08-19 06:51] LABS: MCH 31.6 pg (25.7-33.7); MCHC 32.3 g/dl (32.0-35.9); MEAN CELL VOLUME 97.9 fl (80-96); MEAN PLT VOLUME 9.3 fl (7.5-11.1); PLATELET COUNT 172 K/MM3 (134-434); RDW 18.8 % (11.9-15.9); WHITE BLOOD COUNT 5.1 K/mm3 (4.0-10.0)
[2017-08-19] MEDS ORDERED: LEVOTHYROXINE NA 25 MCG TABLET (FP) PO SCH (07:00)
[2017-08-19 07:11] LABS: ANION GAP 9 (8-16); CALCIUM 7.6 mg/dL (8.5-10.1); CO2 27 mmol/L (21-32); CREATININE 7.3 mg/dL (0.7-1.3); GLUCOSE,RANDOM 100 mg/dL (74-106)
[2017-08-19] MEDS ORDERED: PT OWN MED DRAWER 7, Y5N ONE ×3 (08:06→13:01)
[2017-08-19] MEDS ORDERED: TAMSULOSIN HCL 0.4 MG CAP.ER.24H (FP) PO SCH (08:30)
--- NOTE | 2017-08-19 08:32 | PN ---
Progress Note (short form) - Note Progress Note: NEUROSURGERY Events noted Had some chest burning after getting up from watching TV yesterday (had similar episode previously on different admission by report) Afib with rapid ventricular response Transferred to ICU Prior MRSA infection PE: Tmax 98, 85/55 HEENT- NC/AT; Neck- supple; Cor- RR; Lungs- decreased BS bases B; Abd-benign; Ext- R chest catheter, no sign of DVT Back- mild tenderness mid and lower lumbar spine CN- intact; Motor- 5/5 B UE/LE; Sensation- intact LT; DTR- 2+ WBC 5.1, Hgb 11.8; lactic acid 3.3, Troponin 0.06/0.08 Blood culture- 09/10 MRSE MRI T spine without- Heterogenous marrow signal changes (dialysis related); T9- 10 chronic endplate erosion with no paraspinal or epidural abscess; T6-7 disc space hyperintensity; small T5-6 disc bulge; cervical DDD Subacute-chronic T9-10 discitis/osteomyelitis vs DDD/endplate sclerosis/ nephrogenic sclerosis Cardiology management For CT guided Bx/gram stain/culture/path of T9-10 when cardiac status stabilized
[2017-08-19] MEDS: CALCIUM ACETATE 667 MG CAPSULE (FP) PO SCH ×3 (08:41→17:09)
[2017-08-19] MEDS: SEVELAMER CARBONATE 800 MG TAB (FP) PO SCH ×2 (08:42→17:10)
--- NOTE | 2017-08-19 09:07 | PN ---
Progress Note, Physician Chief Complaint: Episodes of PSVT, received adenosine and Cardizem: transferred to ICU History of Present Illness: Feeling "better" this AM TELE: reviewed, overnight periods of NSVT (3-5 beats). - Current Medication List Current Medications: Active Medications Acetaminophen (Tylenol -) 650 mg PO Q6H PRN PRN Reason: FEVER OR PAIN Calcium Acetate (Phoslo -) 667 mg PO TIDCM [facility] Last Admin: 08/19/17 08:41 Dose: 667 mg Chlorhexidine Gluconate (Hibiclens For Decolonization -) 1 applic TP HS [facility] Cyclobenzaprine HCl (Flexeril -) 10 mg PO HS [facility] Folic Acid (Folic Acid -) 1 mg PO DAILY [facility] Heparin Sodium (Porcine) (Heparin -) 5,000 unit SQ BID [facility] Levothyroxine Sodium (Synthroid -) 25 mcg PO DAILY@0700 [facility] Last Admin: 08/19/17 06:57 Dose: 25 mcg Metoprolol Succinate (Toprol Xl -) 12.5 mg PO DAILY [facility] Midodrine (Proamatine -) 5 mg PO TID-MID [facility] Mupirocin (Bactroban Ointment (For Decolonization) -) 1 applic NS BID [facility] Stop: 08/24/17 09:59 Sevelamer Carbonate (Renvela -) 1,600 mg PO BID@0800,1730 [facility] Last Admin: 08/19/17 08:42 Dose: 1,600 mg Tamsulosin HCl (Flomax -) 0.4 mg PO DAILY@0830 [facility] Last Admin: 08/19/17 08:41 Dose: 0.4 mg Tramadol HCl (Ultram -) 50 mg PO Q12H PRN - Objective Vital Signs: Vital Signs Temperature 98 F 08/19/17 06:00 Pulse Rate 107 H 08/19/17 08:00 Respiratory Rate 20 08/19/17 08:00 Blood Pressure 85/57 08/19/17 08:00 O2 Sat by Pulse Oximetry (%) 99 08/19/17 06:25 Constitutional: Yes: No Distress Cardiovascular: Yes: Regular Rate and Rhythm, Murmur (loud systolic murmur audible throughout precordium) Respiratory: Yes: Other (decreased breath sounds at bases b/l) Gastrointestinal: Yes: Soft Edema: No Neurological: Yes: Alert Labs: CBC, BMP 08/19/17 06:20 08/19/17 06:20 INR, PTT INR 1.19 (0.82-1.09) H 08/19/17 00:10 Laboratory Tests 08/19/17 08/19/17 08/19/17 00:10 06:20 06:20 WBC 5.1 Hct 36.5 Plt Count 172 D Sodium 143 Potassium 4.5 Troponin I 0.06 H 08/19/17 06:20 WBC Hct Plt Count Sodium Potassium Troponin I 0.08 H D - ....Imaging EKG: Image Reviewed Assessment/Plan IMP: SOB PNA, Pleural effusions ASD PAF/ PSVT NSVT Chronic/subacute T9-10 discitis? REC: 1. SOB-PNA/Pleural effusions -thoracentesis as needed for sx improvement -volume removal with HD as tolerates 2. ASD: -s/p MVR/TVR due to trans-septal puncture -Evaluated at [facility] for closure after occular TIA, deemed not a candidate for closure (Dr. Washington and Dr. Mc): ongoing cocaine use, poor compliance and concomitant valve dz -resume ASA after procedures -Repeat echo done thursday, no sig change from prior echo 3. PAF/PSVT:NSR currently -Cont Toprol, not candidate for full AC due to poor compliance, drug use -HR control -resume ASA after procedures -Will try to arrange transfer to [facility] for EP evaluation and possible ablation of PSVT 4. NSVT:brief episodes unchanged from prior admissions -h/o non-obs CAD and normal LV systolic function -Toprol as BP tolerates -Keep K and Mg wnl -cont tele for now 5. Chronic/subacute T9-10 discitis: -As per N-surgery 6. ?Bacteremia: -09/10 bottles, repeat cultures negative -Possible contaminant, ID following
[2017-08-19 09:37] LABS: ANISOCYTOSIS 3+; HYPOCHROMIA 0; MACROCYTOSIS 0; METAMYELOCYTE 0 % (0-2); MICROCYTOSIS 3+; MYELOCYTE 0 % (0-2); POIKILOCYTOSIS 0; POLYCHROMASIA 0; REACTIVE LYMPHOCYTES 2 % (0-80)
--- NOTE | 2017-08-19 09:49 | EKG ---
Test Reason : Blood Pressure : / mmHG Vent. Rate : 194 BPM Atrial Rate : 250 BPM P-R Int : 000 ms QRS Dur : 072 ms QT Int : 210 ms P-R-T Axes : 000 027 179 degrees QTc Int : 377 ms POOR DATA QUALITY, INTERPRETATION MAY BE ADVERSELY AFFECTED ATRIAL FIBRILLATION WITH RAPID VENTRICULAR RESPONSE WITH PREMATURE VENTRICULAR OR ABERRANTLY CONDUCTED COMPLEXES MARKED ST ABNORMALITY, POSSIBLE LATERAL SUBENDOCARDIAL INJURY ABNORMAL ECG WHEN COMPARED WITH ECG OF 13-AUG-2017 12:55, SIGNIFICANT CHANGES HAVE OCCURRED Confirmed by PARAS LEIGH, MENDY ([id number]) on 08/19/2017 9:49:46 AM Referred By: Confirmed By:MENDY CRAIN MD
[2017-08-19] MEDS ORDERED: MUPIROCIN 2% TOPICAL OINTMENT FOR DECOLONIZATION NS SCH (10:00)
[2017-08-19] MEDS ORDERED: FOLIC ACID 1 MG TABLET (FP) PO SCH (10:00)
[2017-08-19] MEDS ORDERED: HEPARIN NA (PORCINE) 5,000 UNITS/ML 1ML VIAL SQ SCH (10:00)
[2017-08-19] MEDS ORDERED: METOPROLOL SUCCINATE 25 MG TAB.SR.24H (FP) PO SCH (10:00)
[2017-08-19 10:09] LABS: MAGNESIUM 2.1 mg/dL (1.8-2.4); PHOSPHOROUS 5.1 mg/dL (2.5-4.9)
[2017-08-19 10:44] LABS: PLATELET COMMENTS PRESENT
[2017-08-19 10:45] LABS: PLATELET ESTIMATE ADEQUATE
[2017-08-19] MEDS: MIDODRINE HCL 5 MG TABLET PO SCH ×3 (11:42→17:10)
--- NOTE | 2017-08-19 12:41 | EKG ---
Test Reason : Blood Pressure : / mmHG Vent. Rate : 108 BPM Atrial Rate : 208 BPM P-R Int : 000 ms QRS Dur : 082 ms QT Int : 360 ms P-R-T Axes : -87 187 024 degrees QTc Int : 482 ms ATRIAL FLUTTER WITH VARIABLE A-V BLOCK WITH PREMATURE VENTRICULAR OR ABERRANTLY CONDUCTED COMPLEXES RIGHT VENTRICULAR HYPERTROPHY SEPTAL INFARCT , AGE UNDETERMINED POSSIBLE LATERAL INFARCT , AGE UNDETERMINED ABNORMAL ECG WHEN COMPARED WITH ECG OF 18-AUG-2017 23:45, SIGNIFICANT CHANGES HAVE OCCURRED Confirmed by MENDY CRAIN MD ([id number]) on 08/19/2017 12:41:27 PM Referred By: Confirmed By:MENDY CRAIN MD
--- NOTE | 2017-08-19 15:10 | PN ---
Progress Note (short form) - Note Progress Note: transferred to ICU for SVT overnight no fevers s/p thoracentesis by IR at bedside Vital Signs Period Temp Pulse Resp BP Sys/Anderson Pulse Ox Last 24 Hr 97.3 F-98.4 F 75-108 18-22 83-96/54-68 94-100 cor-rrr, tachy lungs decreased bs at bases abd soft,nt ext no edema swelling left arm unchanged CBC, BMP 08/19/17 06:20 08/19/17 06:20 Laboratory Tests 08/15/17 08/15/17 12:30 12:30 ESR 20 C-Reactive Protein 0.9 H D Microbiology 08/15/17 12:30 Blood - Pre-Dialysis Blood Culture - Preliminary NO GROWTH OBTAINED AFTER 96 HOURS, INCUBATION TO CONTINUE FOR 1 DAYS. 08/16/17 09:03 Blood - Peripheral Venous Blood Culture - Preliminary NO GROWTH OBTAINED AFTER 72 HOURS, INCUBATION TO CONTINUE FOR 2 DAYS. 08/16/17 08:58 Blood - Peripheral Venous Blood Culture - Preliminary NO GROWTH OBTAINED AFTER 72 HOURS, INCUBATION TO CONTINUE FOR 2 DAYS. 08/15/17 12:30 Blood - Pre-Dialysis Blood Culture - Final Staphylococcus Epidermidis a/p r/o vertebral osteo-t9/10 possible discitis called micro- blood culture isolate is MRSE- drawn from permacath, repeat blood cultures sent before vanco was given are negative hold further vancomycin per Neurosurgery- plan for IR biopsy history endocarditis history of bioMVR/TVR history of MRSA bacteremia 2016 recurrent effusion- f/u pulmonary s/p thoracentesis- results pending esrd/hd-via PC Problem List - Problems (1) Pleural effusion Code(s): J90 - PLEURAL EFFUSION, NOT ELSEWHERE CLASSIFIED (2) H/O mitral valve repair Code(s): Z98.890 - OTHER SPECIFIED POSTPROCEDURAL STATES (4) ESRD (end stage renal disease) on dialysis Code(s): N18.6 - END STAGE RENAL DISEASE; Z99.2 - DEPENDENCE ON RENAL DIALYSIS
[2017-08-19 15:35] VITALS: TEMP 98.6
--- NOTE | 2017-08-19 15:47 | PN ---
Physical Exam: SUBJECTIVE: Patient seen and examined OBJECTIVE: Vital Signs Period Temp Pulse Resp BP Sys/Anderson Pulse Ox Last 24 Hr 97.3 F-98.6 F 75-108 18-24 83-96/54-68 94-100 GENERAL: The patient is awake, alert, and fully oriented, in no acute distress. HEAD: Normal with no signs of trauma. EYES: PERRL, extraocular movements intact, sclera anicteric, conjunctiva clear. No ptosis. ENT: Ears normal, nares patent, oropharynx clear without exudates, moist mucous membranes. NECK: Trachea midline, full range of motion, supple. LUNGS: Breath sounds equal, clear to auscultation bilaterally, no wheezes, no crackles, no accessory muscle use. HEART: Regular rate and rhythm, S1, S2 without murmur, rub or gallop. ABDOMEN: Soft, nontender, nondistended, normoactive bowel sounds, no guarding, no rebound, no hepatosplenomegaly, no masses. EXTREMITIES: 2+ pulses, warm, well-perfused, no edema. NEUROLOGICAL: Cranial nerves II through XII grossly intact. Normal speech, gait not observed. PSYCH: Normal mood, normal affect. SKIN: Warm, dry, normal turgor, no rashes or lesions noted Laboratory Results - last 24 hr 08/19/17 08/19/17 08/19/17 00:10 00:10 00:10 WBC RBC Hgb Hct MCV MCH MCHC RDW Plt Count MPV Neutrophils % Neutrophils % (Manual) Band Neutrophils % Lymphocytes % Lymphocytes % (Manual) Monocytes % Monocytes % (Manual) Eosinophils % Eosinophils % (Manual) Basophils % Basophils % (Manual) Myelocytes % (Man) Metamyelocytes Hypochromia Platelet Estimate Platelet Comment Polychromasia Poikilocytosis Anisocytosis Microcytosis Macrocytosis PT with INR 13.40 H INR 1.19 H Sodium 142 Potassium 4.2 Chloride 104 Carbon Dioxide 28 Anion Gap 10 BUN 24 H D Creatinine 6.7 H D Random Glucose 120 H D Lactic Acid 3.3 H* Calcium 7.7 L Phosphorus 4.5 D Magnesium 2.0 Troponin I 0.06 H 08/19/17 08/19/17 08/19/17 00:10 06:20 06:20 WBC 5.9 D 5.1 RBC 3.77 L 3.73 L Hgb 11.8 D 11.8 Hct 37.4 D 36.5 MCV 99.2 H 97.9 H MCH 31.4 31.6 MCHC 31.6 L 32.3 RDW 18.5 H 18.8 H Plt Count 226 D 172 D MPV 9.7 9.3 Neutrophils % 61.7 No Result Required. Neutrophils % (Manual) 77.1 Band Neutrophils % 0.0 Lymphocytes % 19.1 D No Result Required. Lymphocytes % (Manual) 4.2 L Monocytes % 7.2 Monocytes % (Manual) 5 Eosinophils % 10.1 H Eosinophils % (Manual) 11.4 H Basophils % 1.9 Basophils % (Manual) 0.0 Myelocytes % (Man) 0 Metamyelocytes 0 Hypochromia 0 Platelet Estimate Adequate Platelet Comment Present Polychromasia 0 Poikilocytosis 0 Anisocytosis 3+ Microcytosis 3+ Macrocytosis 0 PT with INR INR Sodium 143 Potassium 4.5 Chloride 107 Carbon Dioxide 27 Anion Gap 9 BUN 24 H Creatinine 7.3 H Random Glucose 100 Lactic Acid Calcium 7.6 L Phosphorus 5.1 H Magnesium 2.1 Troponin I 08/19/17 08/19/17 08/19/17 06:20 06:20 06:20 WBC RBC Hgb Hct MCV MCH MCHC RDW Plt Count MPV Neutrophils % Neutrophils % (Manual) Band Neutrophils % Lymphocytes % Lymphocytes % (Manual) Monocytes % Monocytes % (Manual) Eosinophils % Eosinophils % (Manual) Basophils % Basophils % (Manual) Myelocytes % (Man) Metamyelocytes Hypochromia Platelet Estimate Platelet Comment Polychromasia Poikilocytosis Anisocytosis Microcytosis Macrocytosis PT with INR INR Sodium Potassium Chloride Carbon Dioxide Anion Gap BUN Creatinine Random Glucose Lactic Acid 1.7 Calcium Phosphorus Cancelled Magnesium Cancelled Troponin I 0.08 H D Active Medications Generic Name Dose Route Start Last Admin Trade Name Freq PRN Reason Stop Dose Admin Acetaminophen 650 mg 08/19/17 02:10 Tylenol - PO Q6H PRN FEVER OR PAIN Calcium Acetate 667 mg 08/19/17 08:00 08/19/17 12:05 Phoslo - PO 667 mg TIDCM MONAE Administration Chlorhexidine Gluconate 1 applic 08/19/17 22:00 Hibiclens For Decolonization - TP HS MONAE Cyclobenzaprine HCl 10 mg 08/19/17 22:00 Flexeril - PO HS OMNAE Folic Acid 1 mg 08/19/17 10:00 08/19/17 09:17 Folic Acid - PO 1 mg DAILY MONAE Administration Heparin Sodium (Porcine) 5,000 unit 08/19/17 10:00 08/19/17 09:35 Heparin - SQ Not Given BID [facility] Levothyroxine Sodium 25 mcg 08/19/17 07:00 08/19/17 06:57 Synthroid - PO 25 mcg DAILY@0700 MONAE Administration Metoprolol Succinate 12.5 mg 08/19/17 10:00 08/19/17 09:17 Toprol Xl - PO 12.5 mg DAILY MONAE Administration Midodrine 5 mg 08/19/17 10:00 08/19/17 15:27 Proamatine - PO 5 mg TID-MID MONAE Administration Mupirocin 1 applic 08/19/17 10:00 08/19/17 09:34 Bactroban Ointment (For Decolonization) - NS 08/24/17 09:59 1 applic BID MONAE Administration Sevelamer Carbonate 1,600 mg 08/19/17 08:00 08/19/17 08:42 Renvela - PO 1,600 mg BID@0800,1730 MONAE Administration Tamsulosin HCl 0.4 mg 08/19/17 08:30 08/19/17 08:41 Flomax - PO 0.4 mg DAILY@0830 MONAE Administration Tramadol HCl 50 mg 08/19/17 02:10 Ultram - PO Q12H PRN ASSESSMENT/PLAN:
--- NOTE | 2017-08-19 15:48 | PN ---
Physical Exam: SUBJECTIVE: Patient seen and examined This is a 57 yo M with PMH of COPD on home 2-3L O2, CHF, pleural effusions requiring drainage, ESRD on HD (//), pulmonary HTN, endocarditis, MR and TR s/p MV and TV repair, HTN, HLD, anemia, ASD, and TIA, admitted a week ago 08/13 with SOB. incidentally found to have erosion of T9-T10 and has been followed by neurosurgery for it. has been treated with abx for possible PNA, discontinued and set for repeat L IR thoracentesis today. Brought to ICU s/p RR overnight after developing A fib with RVR 180 bpm, broken with adenosine x 3 and cardizem. Initially brought to ICU on bipapa due to mild desat. Currently NAD, afebrile, hemodynamically stable. in NS rythm. Tolerating ventimask. Denies CP, sob, cough, palpitations, h/a, dizziness, n/v, diaphiresis. OBJECTIVE: Vital Signs Period Temp Pulse Resp BP Sys/Anderson Pulse Ox Last 24 Hr 97.3 F-98.6 F 75-108 18-24 83-96/54-68 94-100 GENERAL: The patient is awake, alert, and fully oriented, in no acute distress. HEAD: Normal with no signs of trauma. EYES: PERRL, extraocular movements intact, sclera anicteric, conjunctiva clear. No ptosis. ENT: moist mucous membranes. NECK: supple no JVD. LUNGS:reduced bibasiolar breath sounds L>R HEART: Regular rate and rhythm, S1, S2, no murmur ABDOMEN: Soft, nontender, nondistended, normoactive bowel sounds EXTREMITIES: 2+ pulses, warm, well-perfused, no edema. NEUROLOGICAL: Cranial nerves II through XII grossly intact. Normal speech, gait not observed. PSYCH: Normal mood, normal affect. SKIN: Warm, dry Laboratory Results - last 24 hr 08/19/17 08/19/17 08/19/17 00:10 00:10 00:10 WBC RBC Hgb Hct MCV MCH MCHC RDW Plt Count MPV Neutrophils % Neutrophils % (Manual) Band Neutrophils % Lymphocytes % Lymphocytes % (Manual) Monocytes % Monocytes % (Manual) Eosinophils % Eosinophils % (Manual) Basophils % Basophils % (Manual) Myelocytes % (Man) Metamyelocytes Hypochromia Platelet Estimate Platelet Comment Polychromasia Poikilocytosis Anisocytosis Microcytosis Macrocytosis PT with INR 13.40 H INR 1.19 H Sodium 142 Potassium 4.2 Chloride 104 Carbon Dioxide 28 Anion Gap 10 BUN 24 H D Creatinine 6.7 H D Random Glucose 120 H D Lactic Acid 3.3 H* Calcium 7.7 L Phosphorus 4.5 D Magnesium 2.0 Troponin I 0.06 H 08/19/17 08/19/17 08/19/17 00:10 06:20 06:20 WBC 5.9 D 5.1 RBC 3.77 L 3.73 L Hgb 11.8 D 11.8 Hct 37.4 D 36.5 MCV 99.2 H 97.9 H MCH 31.4 31.6 MCHC 31.6 L 32.3 RDW 18.5 H 18.8 H Plt Count 226 D 172 D MPV 9.7 9.3 Neutrophils % 61.7 No Result Required. Neutrophils % (Manual) 77.1 Band Neutrophils % 0.0 Lymphocytes % 19.1 D No Result Required. Lymphocytes % (Manual) 4.2 L Monocytes % 7.2 Monocytes % (Manual) 5 Eosinophils % 10.1 H Eosinophils % (Manual) 11.4 H Basophils % 1.9 Basophils % (Manual) 0.0 Myelocytes % (Man) 0 Metamyelocytes 0 Hypochromia 0 Platelet Estimate Adequate Platelet Comment Present Polychromasia 0 Poikilocytosis 0 Anisocytosis 3+ Microcytosis 3+ Macrocytosis 0 PT with INR INR Sodium 143 Potassium 4.5 Chloride 107 Carbon Dioxide 27 Anion Gap 9 BUN 24 H Creatinine 7.3 H Random Glucose 100 Lactic Acid Calcium 7.6 L Phosphorus 5.1 H Magnesium 2.1 Troponin I 08/19/17 08/19/17 08/19/17 06:20 06:20 06:20 WBC RBC Hgb Hct MCV MCH MCHC RDW Plt Count MPV Neutrophils % Neutrophils % (Manual) Band Neutrophils % Lymphocytes % Lymphocytes % (Manual) Monocytes % Monocytes % (Manual) Eosinophils % Eosinophils % (Manual) Basophils % Basophils % (Manual) Myelocytes % (Man) Metamyelocytes Hypochromia Platelet Estimate Platelet Comment Polychromasia Poikilocytosis Anisocytosis Microcytosis Macrocytosis PT with INR INR Sodium Potassium Chloride Carbon Dioxide Anion Gap BUN Creatinine Random Glucose Lactic Acid 1.7 Calcium Phosphorus Cancelled Magnesium Cancelled Troponin I 0.08 H D Active Medications Generic Name Dose Route Start Last Admin Trade Name Freq PRN Reason Stop Dose Admin Acetaminophen 650 mg 08/19/17 02:10 Tylenol - PO Q6H PRN FEVER OR PAIN Calcium Acetate 667 mg 08/19/17 08:00 08/19/17 12:05 Phoslo - PO 667 mg TIDCM MONAE Administration Chlorhexidine Gluconate 1 applic 08/19/17 22:00 Hibiclens For Decolonization - TP HS MONAE Cyclobenzaprine HCl 10 mg 08/19/17 22:00 Flexeril - PO HS MONAE Folic Acid 1 mg 08/19/17 10:00 08/19/17 09:17 Folic Acid - PO 1 mg DAILY MONAE Administration Heparin Sodium (Porcine) 5,000 unit 08/19/17 10:00 08/19/17 09:35 Heparin - SQ Not Given BID [facility] Levothyroxine Sodium 25 mcg 08/19/17 07:00 08/19/17 06:57 Synthroid - PO 25 mcg DAILY@0700 MONAE Administration Metoprolol Succinate 12.5 mg 08/19/17 10:00 08/19/17 09:17 Toprol Xl - PO 12.5 mg DAILY MONAE Administration Midodrine 5 mg 08/19/17 10:00 08/19/17 15:27 Proamatine - PO 5 mg TID-MID MONAE Administration Mupirocin 1 applic 08/19/17 10:00 08/19/17 09:34 Bactroban Ointment (For Decolonization) - NS 08/24/17 09:59 1 applic BID MONAE Administration Sevelamer Carbonate 1,600 mg 08/19/17 08:00 08/19/17 08:42 Renvela - PO 1,600 mg BID@0800,1730 MONAE Administration Tamsulosin HCl 0.4 mg 08/19/17 08:30 08/19/17 08:41 Flomax - PO 0.4 mg DAILY@0830 MONAE Administration Tramadol HCl 50 mg 08/19/17 02:10 Ultram - PO Q12H PRN ASSESSMENT/PLAN: This is a 57 yo M with PMH of COPD on home 2-3L O2, CHF, pleural effusions requiring drainage, ESRD on HD (T/Th/S), pulmonary HTN, endocarditis, MR and TR s/p MV and TV repair, HTN, HLD, anemia, ASD, and TIA, Brought to ICU s/p RR overnight after developing A fib with RVR Neuro -aaox3 *chronic/subacute T9-10 discitis -outpatient management by neuro Pulm *Large L pleural effusion -thoracentesis today; f/u pleural fluid studies (previously non malignant) -tolerating ventimask, may switch to NC 3 L -AM CXR CV *Afib with RVR (acute on chronic a fib) -currently NS -Toprol, not candidate for full A/C due to poor compliance, drug use -replete K, mag, phos -Cardiolog on case, may xfer to [facility] for EP eval *ASD s/p MVR/TVR -not a candidate for closure due to cocaine use, poor compliance and concomitant valve disease -resume ASA after procedures -TTE today no change from prior Renal *ESRD on HD (last one 08/17) -HD tomorrow -renal on board FEN no ivf lytes stable regular diet hep ppx Dispo: xfer tele Problem List - Problems (1) Atrial fibrillation with RVR Code(s): I48.91 - UNSPECIFIED ATRIAL FIBRILLATION (3) Paroxysmal A-fib Code(s): I48.0 - PAROXYSMAL ATRIAL FIBRILLATION (4) Substance abuse Code(s): F19.10 - OTHER PSYCHOACTIVE SUBSTANCE ABUSE, UNCOMPLICATED (6) Acute dyspnea Code(s): R06.00 - DYSPNEA, UNSPECIFIED (7) Acute electrocardiogram changes Code(s): R94.31 - ABNORMAL ELECTROCARDIOGRAM [ECG] [EKG] (8) Acute on chronic combined systolic and diastolic CHF, NYHA class 4 Code(s): I50.43 - ACUTE ON CHRONIC COMBINED SYSTOLIC AND DIASTOLIC HRT FAIL (9) Acute on chronic respiratory failure with hypoxemia Code(s): J96.21 - ACUTE AND CHRONIC RESPIRATORY FAILURE WITH HYPOXIA (10) Anemia in CKD (chronic kidney disease) Code(s): N18.9 - CHRONIC KIDNEY DISEASE, UNSPECIFIED; D63.1 - ANEMIA IN CHRONIC KIDNEY DISEASE (11) CHF (congestive heart failure) Code(s): I50.9 - HEART FAILURE, UNSPECIFIED (12) COPD (chronic obstructive pulmonary disease) Code(s): J44.9 - CHRONIC OBSTRUCTIVE PULMONARY DISEASE, UNSPECIFIED (13) DVT prophylaxis Code(s): LWM0862 - (14) Dizziness Code(s): R42 - DIZZINESS AND GIDDINESS (15) Dyspnea Code(s): R06.00 - DYSPNEA, UNSPECIFIED (16) ESRD (end stage renal disease) on dialysis Code(s): N18.6 - END STAGE RENAL DISEASE; Z99.2 - DEPENDENCE ON RENAL DIALYSIS (17) Elevated troponin I level Code(s): R74.8 - ABNORMAL LEVELS OF OTHER SERUM ENZYMES (18) Pleural effusion Code(s): J90 - PLEURAL EFFUSION, NOT ELSEWHERE CLASSIFIED Visit type - Emergency Visit Emergency Visit: Yes ED Registration Date: 08/13/17 Care time: The patient presented to the Emergency Department on the above date and was hospitalized for further evaluation of their emergent condition. - New Patient This patient is new to me today: Yes Date on this admission: 08/19/17 - Critical Care Critical Care patient: Yes Total Critical Care Time (in minutes): 35 Critical Care Statement: The care of this patient involved high complexity decision making to prevent further life threatening deterioration of the patient 's condition and/or to evaluate & treat vital organ system(s) failure or risk of failure. - Discharge Referral Referred to [facility] Med P.C.: No
[2017-08-19 17:22] LABS: GLUCOSE,PLEURAL FLUID 98.224; TOTAL PROTEIN,PLEURAL FLUID 0.499
[2017-08-19 17:28] LABS: PLEURAL FLUID APPEARANCE CLEAR; PLEURAL FLUID COLOR COLORLESS; PLEURAL FLUID SOURCE PLEURAL FLUID
--- NOTE | 2017-08-19 18:08 | PN ---
Progress Note (short form) - Note Progress Note: Renal follow up for ESRD on HD Pt seen and examined in the ICU s/p SVT requiring transfer to ICU s/p dialysis yesterday for thoracentesis today no CP, SOb, abd pain, N/V/D, palpitations Vital Signs Temperature 98.6 F 08/19/17 14:00 Pulse Rate 108 H 08/19/17 14:00 Respiratory Rate 24 08/19/17 16:00 Blood Pressure 88/58 08/19/17 16:00 O2 Sat by Pulse Oximetry (%) 93 L 08/19/17 16:38 Intake & Output 08/16/17 08/17/17 08/18/17 08/19/17 23:59 23:59 23:59 23:59 Intake Total 900 10 520 Balance 900 10 520 Weight 73.482 kg NAD tachycardic dec BS left lung trace LE edema CBC, BMP 08/19/17 06:20 08/19/17 06:20 Current Medications Acetaminophen (Tylenol -) 650 mg PO Q6H PRN PRN Reason: FEVER OR PAIN Calcium Acetate (Phoslo -) 667 mg PO TIDCM [facility] Last Admin: 08/19/17 17:09 Dose: 667 mg Chlorhexidine Gluconate (Hibiclens For Decolonization -) 1 applic TP HS [facility] Cyclobenzaprine HCl (Flexeril -) 10 mg PO HS [facility] Folic Acid (Folic Acid -) 1 mg PO DAILY [facility] Last Admin: 08/19/17 09:17 Dose: 1 mg Heparin Sodium (Porcine) (Heparin -) 5,000 unit SQ BID [facility] Last Admin: 08/19/17 09:35 Dose: Not Given Levothyroxine Sodium (Synthroid -) 25 mcg PO DAILY@0700 [facility] Last Admin: 08/19/17 06:57 Dose: 25 mcg Metoprolol Succinate (Toprol Xl -) 12.5 mg PO DAILY [facility] Last Admin: 08/19/17 09:17 Dose: 12.5 mg Midodrine (Proamatine -) 5 mg PO TID-MID [facility] Last Admin: 08/19/17 17:10 Dose: 5 mg Mupirocin (Bactroban Ointment (For Decolonization) -) 1 applic NS BID [facility] Stop: 08/24/17 09:59 Last Admin: 08/19/17 09:34 Dose: 1 applic Sevelamer Carbonate (Renvela -) 1,600 mg PO BID@0800,1730 [facility] Last Admin: 08/19/17 17:10 Dose: 1,600 mg Tamsulosin HCl (Flomax -) 0.4 mg PO DAILY@0830 [facility] Last Admin: 08/19/17 08:41 Dose: 0.4 mg Tramadol HCl (Ultram -) 50 mg PO Q12H PRN 57 year old Gentleman with PMhx of ESRD on HD (TTS), CHF, Valvular heart diesase s/p MV/TV repeair, Hx of Hypertension, ASD, TIA who preented with complaints of weakness and SOB and found to have PNA and low BP #Subacute inflamation of thorasic spine + positive blood culture culture grew coag negative staph for IR biopsy off Abx ID and neuro-surgery following #Moderate to large pleural effusion for thoracentesis today #Hypotension continue Midodrine 5mg TID #ESRD on HD for dialysis tomorrow in monitored setting UF as tolerated #CHF Cardiology following #CKD related Anemia Goal Hgb > 10 [place] ANTONIO with HD Thank you Abdirashid Guthrie DO
[2017-08-19] MEDS ORDERED: dilTIAZem HCL 125 MG/25 ML - 25 ML VIAL ONE (18:59)
[2017-08-19] MEDS ORDERED: SODIUM CHLORIDE 500 ML IV STA (19:39)
[2017-08-19 20:14] VITALS: BP 83/57; PULSE 110
[2017-08-19 20:58] LABS: PLEURAL FLUID LYMPHOCYTES 18 %; PLEURAL FLUID NEUTROPHIL 2 %
[2017-08-19 20:59] LABS: PLEURAL FLUID MACROPHAGES 69 %
[2017-08-19] MEDS ORDERED: CHLORHEXIDINE GLUCONATE 4% CLEANSER FOR DECOLONIZATION TP SCH (22:00)
[2017-08-19] MEDS ORDERED: CYCLOBENZAPRINE HCL 10 MG TABLET (FP) PO SCH (22:00)
--- NOTE | 2017-08-21 15:45 | PATH ---
Cytology Non-Gynecological Report Patient Name: ELOY FENG JR [facility]. Rec. #: [id number] /Age/Gender: 1960 (Age: 57) / M Account: [id number] Location: ICU [employer] REPA[employer]ER Taken: 08/19/2017 Received: 08/20/2017 Reported: 08/21/2017 Physicians: Torres Cintron M.D. Specimen(s) Received PLEURAL FLUID Clinical History None given Final Diagnosis PLEURAL FLUID, THORACENTESIS: SATISFACTORY FOR EVALUATION BENIGN (NO MALIGNANT CELLS IDENTIFIED) MESOTHELIAL CELLS, LYMPHOCYTES AND NEUTROPHILS PRESENT. Comment: Recommend correlation with clinical findings and follow up as clinically indicated. Also see [id number]. Electronically Signed Zachary Hilton M.D. Gross Description Approximately 50 cc of yellow fluid received fixed in 50% alcohol. Two cytofunnels and one cellblock prepared.
== END 2017-08-19 20:53 | disposition short-term general hospital (02) | DRG 139 ==
LOC: JER 11:01 → JERBED 16:22 → J4W 21:48 → JICU 08-19 00:06
PROVIDERS: ADMIT Internal Medicine; ATTEND Internal Medicine
PROC: 5A1D70Z Performance of Urinary Filtration, Intermittent, Less than 6 Hours Per Day (ICD-10-PCS; 2017-08-15)
PROC: 0W9B30Z Drainage of Left Pleural Cavity with Drainage Device, Percutaneous Approach (ICD-10-PCS; principal; 2017-08-19)
PROC: 5A1935Z Respiratory Ventilation, Less than 24 Consecutive Hours (ICD-10-PCS; 2017-08-19)
PROC: 0W9B3ZX Drainage of Left Pleural Cavity, Percutaneous Approach, Diagnostic (ICD-10-PCS; 2017-08-19)
DX: J18.9 Pneumonia, unspecified organism (principal); I13.2 Hypertensive heart and chronic kidney disease with heart failure and with stage 5 chronic kidney disease, or end stage renal disease; I50.43 Acute on chronic combined systolic (congestive) and diastolic (congestive) heart failure; J90 Pleural effusion, not elsewhere classified; N18.6 End stage renal disease; I27.20 Pulmonary hypertension, unspecified; I95.9 Hypotension, unspecified; Z99.81 Dependence on supplemental oxygen; I48.0 Paroxysmal atrial fibrillation; J44.9 Chronic obstructive pulmonary disease, unspecified; I51.0 Cardiac septal defect, acquired; M46.44 Discitis, unspecified, thoracic region; J98.11 Atelectasis; F14.10 Cocaine abuse, uncomplicated; F12.10 Cannabis abuse, uncomplicated; Z99.2 Dependence on renal dialysis; D63.1 Anemia in chronic kidney disease; E78.5 Hyperlipidemia, unspecified; Z86.73 Personal history of transient ischemic attack (TIA), and cerebral infarction without residual deficits; Z95.4 Presence of other heart-valve replacement; F17.210 Nicotine dependence, cigarettes, uncomplicated; B19.20 Unspecified viral hepatitis C without hepatic coma; I25.10 Atherosclerotic heart disease of native coronary artery without angina pectoris; G89.29 Other chronic pain; M25.512 Pain in left shoulder
CPT/HCPCS: 36415; 71010-TC; 71020-TC; 71250-TC; 72146-TC; 76942; 80048; 80053; 82042; 82140; 82150; 82550; 82553; 82945; 83605; 83615; 83690; 83735; 83880; 84100; 84157; 84311; 84478; 84484; 85025; 85027; 85610; 85651; 85730; 86140; 86704; 86706; 86708; 86803; 87040; 87070; 87075; 87102; 87116; 87186; 87205; 87206; 87210; 87340; 88108; 88305-TC; 89051; 93005; 93010; 93306-TC; 94640; 94660; 99284-25; G0480; J0885

== ENCOUNTER 2017-08-30 06:59 | Emergency (ER) | payer OTHER ==
[2017-08-30 07:16] VITALS: BMI 20.3
--- NOTE | 2017-08-30 08:29 | PDOC ---
History of Present Illness - General History Source: Patient, Old Records Exam Limitations: No Limitations - History of Present Illness Initial Comments: 08/30/17 09:36 The patient is a 57-year-old male, with a significant past medical history of HTN, HLD, ESRD (on HD: , , Thu), Anemia, Asthma, Hx of Endocarditis with mitral and tricuspid valve repair with recurrent moderate to severe regurgitation, Atrial septal defect, TIA (involving R eye), who presents to the emergency department with right elbow and knee discomfort and left arm pain s/p fall yesterday at dialysis center. He was seen in the ED 2 weeks ago and was admitted for pneumonia. Patient states that before dialysis, he slipped on black ice and fell, hitting his head. He fell on his right side but is also complaining of left arm pain from a rotator cuff injury. He denies any loss of consciousness. The patient was able to complete dialysis and went home. He woke up this morning and was unable to get out of bed on his own due to pain. He presents to the ER today for further evaluation. Patient denies having any other injuries. Denies headache. Denies fever, chills , nausea, or vomiting. Allergies: Iodinated Contrast(Oral and IV Dye) Past Surgical History: Valve replacements X2, lung sx (h/o MRSA pleural tissue) Social History: Current everyday smoker. ETOH abuse. No recreational drug use. PCP: Dr. Gee Vascular Surgeon: Dr. Larson Machine Captain: Dr. Ashley Tavarez <Elizabeth Stone - Last Filed: 08/30/17 10:31> <Marlon Mendenhall - Last Filed: 08/30/17 11:13> - General Chief Complaint: Pain, Acute Stated Complaint: PAIN Time Seen by Provider: 08/30/17 08:16 Past History <Elizabeth Stone - Last Filed: 08/30/17 10:31> - Past Medical History Anemia: Yes Asthma: Yes Cancer: No Cardiac Disorders: Yes (2X VALVE REPLACEMENT) CVA: No COPD: Yes CHF: No Dementia: No Diabetes: No Dialysis: Yes () GI Disorders: Yes Disorders: Yes (ENLARGED PROSTATE) HTN: Yes Hypercholesterolemia: Yes Liver Disease: No Seizures: No Thyroid Disease: No - Surgical History Abdominal Surgery: No Appendectomy: No Cardiac Surgery: Yes (2 VALVES REPLACED 04/2015) Cholecystectomy: No Lung Surgery: Yes (h/o MRSA pleural tissue) Neurologic Surgery: No Orthopedic Surgery: No - Immunization History Immunization Up to Date: No - Suicide/Smoking/Psychosocial Hx Smoking Status: Yes Smoking History: Never smoked Have you smoked in the past 12 months: Yes Number of Cigarettes Smoked Daily: 3 Information on smoking cessation initiated: No 'Breaking Loose' booklet given: 07/04/17 Hx Alcohol Use: No Drug/Substance Use Hx: No Substance Use Type: None Hx Substance Use Treatment: Yes (rehab, detox) <Marlon Mendenhall - Last Filed: 08/30/17 11:13> - Past Medical History Allergies/Adverse Reactions: Allergies Allergy/AdvReac Type Severity Reaction Status Date / Time Iodinated Contrast- Oral and Allergy Verified 08/30/17 07:16 IV Dye CONTRAST Allergy Hives Uncoded 08/30/17 07:16 Home Medications: Ambulatory Orders Folic Acid 1 mg PO DAILY 09/11/16 Sevelamer Carbonate [Renvela -] 1,600 mg PO BID 09/11/16 Albuterol Sulfate 0.042% [Ventolin 0.042% (Half-Strength) -] 1 amp NEB TID PRN 04/22/17 Cyclobenzaprine HCl [Flexeril -] 10 mg PO HS 04/22/17 Tamsulosin HCl 0.4 mg PO DAILY 07/03/17 Acetaminophen [Tylenol .Regular Strength -] 650 mg PO Q6H PRN tablet 07/20/17 Albuterol 2.5/Ipratropium 0.5 [Duoneb -] 1 amp NEB Q4H PRN amp 07/20/17 Aspirin [ASA -] 81 mg PO DAILY tab.chew 07/20/17 Calcium Acetate [Phoslo -] 667 mg PO TIDCM capsule 07/20/17 Levothyroxine [Synthroid -] 25 mcg PO DAILY@0700 tablet 07/20/17 Metoprolol Succinate [Toprol XL -] 12.5 mg PO DAILY tab.sr.24h 07/20/17 Oxycodone HCl/Acetaminophen [Percocet 5-325 mg Tablet] 1 - 2 tab PO TID PRN #10 tab MDD 6 08/30/17 Review of Systems - Review of Systems Constitutional: No: Chills, Fever HEENTM: No: Recent change in vision Respiratory: No: Cough, Shortness of Breath Cardiac (ROS): No: Chest Pain, Syncope ABD/GI: No: Nausea, Vomiting Musculoskeletal: Yes: Joint Pain, Muscle Pain Neurological: No: Headache All Other Systems: Reviewed and Negative <Marlon Mendenhall - Last Filed: 08/30/17 11:13> *Physical Exam - Vital Signs Last Vital Signs Temp Pulse Resp BP Pulse Ox 98.1 F 88 18 132/88 100 08/30/17 07:11 08/30/17 07:11 08/30/17 07:56 08/30/17 07:11 08/30/17 07:56 - Physical Exam Comments: 08/30/17 09:41 GENERAL: The patient is awake, alert, and fully oriented, in no acute distress. HEAD: (+)Superficial abrasion x2 to frontal parietal scalp. No active bleeding, no laceration. EYES: Pupils equal, round and reactive to light, extraocular movements intact, sclera anicteric, conjunctiva clear with no pallor. ENT: Ears normal, nares patent, oropharynx clear without exudates. Moist mucous membranes. NECK: Normal range of motion, supple without lymphadenopathy, JVD, or masses. LUNGS: Breath sounds equal, clear to auscultation bilaterally. No wheeze/ crackles. HEART: Regular rate and rhythm, normal S1 and S2 without murmur or rub. CHEST: (+)Dialysis catheter in place. ABDOMEN: Soft/nontender/nondistended. BS wnl. No guarding or rebound. No palpable masses. No hepatosplenomegaly. EXTREMITIES: (+)Right arm: 5mm superficial abrasion to the lateral aspect just proximal to the right elbow. No swelling or focal bony tenderness of the right arm. (+)Right leg: Healing abrasions to the lateral and anterior regions of of the right leg; Lateral (1 cm) and Anterior (2 cm). No laceration, no focal bony tenderness, no right knee tenderness, full range of motion. No clubbing or cyanosis. No cords. (+)Left arm: Forearm fistula with thrill, slightly more swollen than right arm. Good distal pulses. NEUROLOGICAL: Cranial nerves II through XII grossly intact. 5/5 strength in all extremities. PSYCH: Normal mood, normal affect. SKIN: Warm, Dry, normal turgor. <Elizabeth Stone - Last Filed: 08/30/17 10:31> - Vital Signs Last Vital Signs Temp Pulse Resp BP Pulse Ox 98.1 F 88 18 132/88 100 08/30/17 07:11 08/30/17 07:11 08/30/17 07:56 08/30/17 07:11 08/30/17 07:56 <Marlon Mendenhall - Last Filed: 08/30/17 11:13> ED Treatment Course - RADIOLOGY Radiology Studies Ordered: 08/30/17 10:[address] was reviewed by Dr. Mendenhall and over-read by Radiology. Impression: No acute bleed or fracture. No CT evidence of acute infarct. - Medications Given in the ED: ED Medications Discontinued Medications Generic Name Dose Route Start Last Admin Trade Name Freq PRN Reason Stop Dose Admin Oxycodone/Acetaminophen 2 combo 08/30/17 08:36 08/30/17 08:45 Percocet 5/325 - PO 08/30/17 08:37 2 combo ONCE ONE Administration <Elizabeth Stone - Last Filed: 08/30/17 10:31> Medical Decision Making - Medical Decision Making 08/30/17 08:55 A portion of this note was documented by scribe services under my direction. I have reviewed the details of the note, within reason, and agree with the documentation with the following case summary and management plan written by me. 57-year-old male with multiple medical problems including end-stage renal disease on Thursday//Thursday dialysis, well known to our institution presents with muscle skeletal complaints after slip and fall on ice yesterday at dialysis. Patient states before dialysis he slipped and landed on his right side striking his head, denies any loss of consciousness. The patient proceeded to complete dialysis and went home, was complaining of some right elbow and right knee discomfort, and this morning had enough pain that he had trouble getting out of bed so he presents for evaluation. Apart from the fall, patient reports chronic left arm pain from rotator cuff injury, states this was aggravated again yesterday. Denies any sensory deficits. Does not take anything at home for pain per his report. Vital signs normal. Scattered abrasions to the scalp, right elbow, right knee that are all superficial and healing, no active bleeding and no open laceration Neurologically intact throughout Full range of motion without focal deformity or tenderness on the right upper and right lower extremity. Distal pulses intact. Left upper extremity has a fistula with thrill, there is some swelling to the left arm compared to the right, but easily palpable distal pulses and neurologically intact. 57-year-old male with mechanical slip and fall yesterday, no apparent injuries to the areas in question, superficial abrasions without evidence of underlying fracture. Positive mild head injury but neurologically intact. The left arm, which is reported as having chronic discomfort, does appear more swollen than the right, so we'll rule out clot. CT head No indication for imaging of the right elbow or right knee. Local wound care with bacitracin. Left arm Doppler Pain control Dispo accordingly 08/30/17 10:46 Feels better after pain meds, CT head without acute injury, left upper extremity Doppler without evidence of DVT. Remains neurologically intact and vascularly intact, agrees with discharge plan. Has dialysis scheduled on Thursday, his niece will come to pick him up. <Marlon Mendenhall - Last Filed: 08/30/17 11:13> *DC/Admit/Observation/Transfer - Attestations Scribe Attestion: 08/30/17 09:57 Documentation prepared by Elizabeth Stone, acting as medical interpreter for Marlon Mendenhall MD. <Elizabeth Stone - Last Filed: 08/30/17 10:31> <Marlon Mendenhall - Last Filed: 08/30/17 11:13> Diagnosis at time of Disposition: ESRD on hemodialysis, Left arm swelling Accidental fall Qualifiers: Encounter type: initial encounter Qualified Code(s): W19.XXXA - Unspecified fall, initial encounter Rotator cuff injury Qualifiers: Encounter type: initial encounter Laterality: left Qualified Code(s): S46.002A - Unspecified injury of muscle(s) and tendon(s) of the rotator cuff of left shoulder, initial encounter - Discharge Dispostion Disposition: HOME Condition at time of disposition: Improved - Prescriptions Prescriptions: Oxycodone HCl/Acetaminophen [Percocet 5-325 mg Tablet] 1 - 2 tab PO TID PRN #10 tab MDD 6 PRN Reason: Pain - Referrals Referrals: Abdirashid Guthrie MD [Staff Physician] - - Patient Instructions Printed Discharge Instructions: How to Use a Sling, DI for Rotator Cuff Injury Additional Instructions: Activity as tolerated. Stay hydrated. Tylenol 1000 mg every 8 hours as needed for pain. A CT of the head and an ultrasound of the arm showed no acute abnormalities. Sling as needed for comfort. Ice the affected areas for 20 minutes every 3-4 hours to reduce swelling. Bacitracin to the wounds twice daily until healed. Continue your medications as previously prescribed by your physician. You should follow up with your primary doctor as soon as possible and with Dialysis on Thursday as scheduled regarding today's emergency department visit. Return to the emergency department for any new or concerning symptoms, particularly persistent or worsening pain, worsening weakness, numbness or discoloration or severe swelling.
[2017-08-30 11:16] VITALS: BP 132/65; PULSE 85; TEMP 97.8
== END 2017-08-30 11:25 | disposition home or self-care (01) ==
LOC: JER 06:59
DX: S46.022A Laceration of muscle(s) and tendon(s) of the rotator cuff of left shoulder, initial encounter (principal); W00.2XXA Other fall from one level to another due to ice and snow, initial encounter; Y93.89 Activity, other specified; Y92.480 Sidewalk as the place of occurrence of the external cause; Y99.8 Other external cause status; I12.0 Hypertensive chronic kidney disease with stage 5 chronic kidney disease or end stage renal disease; N18.6 End stage renal disease; N17.8 Other acute kidney failure; Z99.2 Dependence on renal dialysis; D64.9 Anemia, unspecified; J45.909 Unspecified asthma, uncomplicated; Z95.2 Presence of prosthetic heart valve
CPT/HCPCS: 70450-TC; 93971; 99284-25

== ENCOUNTER 2017-09-09 17:43 | Inpatient (IN) | payer OTHER ==
--- NOTE | 2017-09-09 18:06 | PDOC ---
Rapid Medical Evaluation Time Seen by Provider: 09/09/17 18:00 Medical Evaluation: Allergies Allergy/AdvReac Type Severity Reaction Status Date / Time Iodinated Contrast- Oral and Allergy Verified 08/30/17 07:16 IV Dye CONTRAST Allergy Hives Uncoded 08/30/17 07:16 I have performed a brief in-person evaluation of this patient. The patient presents with a chief complaint of: non tender left mouth abscess. Sent in by Jaswinder for IV abx. Pt has NIDDM. Pertinent physical exam findings: edematous left lower face; area is not TTP or erythematous. No visible tooth abscess I have ordered the following: basic labs The patient will proceed to the ED for further evaluation. Discharge Disposition - Referrals Referrals: Golden San MD [Primary Care Provider] - - Patient Instructions - Post Discharge Activity
[2017-09-09 19:55] LABS: ANION GAP 12 (8-16); BILIRUBIN,TOTAL 0.3 mg/dL (0.2-1.0); BLOOD UREA NITROGEN 32 mg/dL (7-18); CALCIUM 8.2 mg/dL (8.5-10.1); CHLORIDE 105 mmol/L (98-107); CO2 24 mmol/L (21-32); GLUCOSE,RANDOM 119 mg/dL (74-106); SGPT/ALT 26 U/L (12-78); SODIUM 141 mmol/L (136-145); TOT PROT 5.8 g/dl (6.4-8.2)
[2017-09-09 20:00] LABS: ALK PHOS 114 U/L (45-117)
[2017-09-09 20:08] LABS: POTASSIUM 4.6 mmol/L (3.5-5.1)
[2017-09-09 20:11] LABS: SGOT/AST 34 U/L (15-37)
[2017-09-09 20:13] LABS: CREATININE 7.8 mg/dL (0.7-1.3)
--- NOTE | 2017-09-09 20:42 | PDOC ---
History of Present Illness - General History Source: Patient Exam Limitations: No Limitations - History of Present Illness Initial Comments: 09/09/17 23:03 The patient is a 57 year old male, with a significant past medical history of diabetes(non insulin dependent), ESRD(on dialysis , , S; with Shiley in right chest), anemia, asthma, COPD, hypotension, and hyperlipidemia, who presents to the emergency department with lower facial swelling for approximately 2 days. The patient reports sudden onset of lower facial swelling , localized to the left side. He denies any erythema or drainage. Patient reports seeing his Wafer Cleaner, Dr. San, who sent the patient to the ED for an admission to rule out mandibular abscess. He denies any difficulty chewing, fever, chills, cough, sore throat, headache, or dizziness. He denies any facial trauma. He denies any recent travel or sick contacts. Allergies: Iodinated Contrast- Oral and IV Dye, [Contrast] Past Surgical History: Lung sx(s/p MRSA), Cardiac valve replacements(x2) Social History: Current everyday smoker. No ETOH or recreational drug use. PCP: Dr. Omar Hernandez Wafer Cleaner: Dr. San <Ciarra Lao - Last Filed: 09/10/17 00:02> <Patricia Yeung - Last Filed: 09/10/17 00:15> - General Chief Complaint: Abscess Boil Stated Complaint: SENT BY PCP Time Seen by Provider: 09/09/17 18:00 Past History <Ciarra Lao - Last Filed: 09/10/17 00:02> - Past Medical History Anemia: Yes Asthma: Yes Cancer: No Cardiac Disorders: Yes (2X VALVE REPLACEMENT) CVA: No COPD: Yes CHF: No Dementia: No Diabetes: No Dialysis: Yes () GI Disorders: Yes Disorders: Yes (ENLARGED PROSTATE) HTN: No (LOW BP) Hypercholesterolemia: Yes Liver Disease: No Seizures: No Thyroid Disease: No - Surgical History Abdominal Surgery: No Appendectomy: No Cardiac Surgery: Yes (2 VALVES REPLACED 04/2015) Cholecystectomy: No Lung Surgery: Yes (h/o MRSA pleural tissue) Neurologic Surgery: No Orthopedic Surgery: No - Immunization History Immunization Up to Date: No - Suicide/Smoking/Psychosocial Hx Smoking Status: Yes Smoking History: Current every day smoker Have you smoked in the past 12 months: Yes Number of Cigarettes Smoked Daily: 3 Information on smoking cessation initiated: No 'Breaking Loose' booklet given: 07/04/17 Hx Alcohol Use: No Drug/Substance Use Hx: No Substance Use Type: None Hx Substance Use Treatment: Yes (rehab, detox) <Patricia Yeung - Last Filed: 09/10/17 00:15> - Past Medical History Allergies/Adverse Reactions: Allergies Allergy/AdvReac Type Severity Reaction Status Date / Time Iodinated Contrast- Oral and Allergy Verified 09/09/17 18:05 IV Dye CONTRAST Allergy Hives Uncoded 09/09/17 18:05 Home Medications: Ambulatory Orders Folic Acid 1 mg PO DAILY 09/11/16 Sevelamer Carbonate [Renvela -] 1,600 mg PO BID 09/11/16 Albuterol Sulfate 0.042% [Ventolin 0.042% (Half-Strength) -] 1 amp NEB TID PRN 04/22/17 Cyclobenzaprine HCl [Flexeril -] 10 mg PO HS 04/22/17 Tamsulosin HCl 0.4 mg PO DAILY 07/03/17 Acetaminophen [Tylenol .Regular Strength -] 650 mg PO Q6H PRN tablet 07/20/17 Albuterol 2.5/Ipratropium 0.5 [Duoneb -] 1 amp NEB Q4H PRN amp 07/20/17 Aspirin [ASA -] 81 mg PO DAILY tab.chew 07/20/17 Calcium Acetate [Phoslo -] 667 mg PO TIDCM capsule 07/20/17 Levothyroxine [Synthroid -] 25 mcg PO DAILY@0700 tablet 07/20/17 Metoprolol Succinate [Toprol XL -] 12.5 mg PO DAILY tab.sr.24h 07/20/17 Oxycodone HCl/Acetaminophen [Percocet 5-325 mg Tablet] 1 - 2 tab PO TID PRN #10 tab MDD 6 08/30/17 Review of Systems - Review of Systems Able to Perform ROS?: Yes Comments:: 09/09/17 23:03 GENERAL/CONSTITUTIONAL: No fever or chills. No weakness. HEAD, EYES, EARS, NOSE AND THROAT: Yes left lower facial swelling. No change in vision. No ear pain or discharge. No sore throat. No facial erythema or drainage. GASTROINTESTINAL: No nausea, vomiting, diarrhea or constipation. GENITOURINARY: No dysuria, frequency, or change in urination. CARDIOVASCULAR: No chest pain or shortness of breath. RESPIRATORY: No cough, wheezing, or hemoptysis. MUSCULOSKELETAL: No joint or muscle swelling or pain. No neck or back pain. SKIN: No rash NEUROLOGIC: No headache, vertigo, loss of consciousness, or change in strength/ sensation. ENDOCRINE: No increased thirst. No abnormal weight change. HEMATOLOGIC/LYMPHATIC: No anemia, easy bleeding, or history of blood clots. ALLERGIC/IMMUNOLOGIC: No hives or skin allergy. <ShiloGiomilsy - Last Filed: 09/10/17 00:02> *Physical Exam - Vital Signs Last Vital Signs Temp Pulse Resp BP Pulse Ox 82 20 99/53 92 L 09/09/17 18:01 09/09/17 18:01 09/09/17 18:01 09/09/17 18:01 - Physical Exam Comments: 09/09/17 23:08 Constitutional: Awake, alert, oriented. No acute distress. Afebrile. Head: Normocephalic. Left lower facial swelling. No Kalpesh's. Eyes: PERRL. EOMI. Conjunctivae are not pale. ENT: Mucous membranes are moist and intact. Posterior pharynx without exudates or erythema. Uvula midline. Oral: No broken teeth, multiple missing teeth, but no signs of dental abscess or active gum disease. No submandibular lymphadenopathy. Neck: Supple. Full ROM. No lymphadenopathy. Chest: Right catheter in chest, no drainage around catheter Cardiovascular: Regular rate. Regular rhythm. S1, S2 regular. Distal pulses are 2+ and symmetric. Pulmonary/Chest: No evidence of respiratory distress. Clear to auscultation bilaterally No wheezing, rales or rhonchi. Abdominal: Soft and non-distended. There is no tenderness. No rebound, guarding or rigidity. No organomegaly. No palpable masses. Good bowel sounds. Back: No CVA tenderness. Musculoskeletal: No edema. No cyanosis. No clubbing. Full range of motion in all extremities. No calf tenderness. Radial/pedal pulses are intact and 2+ bilaterally Skin: Multiple old AV fistulas on left forearm, non active. Skin is warm and dry. No petechiae. No purpura. Neurological: Alert and oriented to person, place, and time. Cranial nerves II -XII are grossly intact. Normal speech. Strength is grossly symmetric. No sensory deficits. Psychiatric: Good eye contact. Normal interaction, affect and behavior. <ShiloLorenatre - Last Filed: 09/10/17 00:02> - Vital Signs Last Vital Signs Temp Pulse Resp BP Pulse Ox 82 20 99/53 92 L 09/09/17 18:01 09/09/17 18:01 09/09/17 18:01 09/09/17 18:01 <Patricia Yeung - Last Filed: 09/10/17 00:15> ED Treatment Course - LABORATORY CBC & Chemistry Diagram: 09/09/17 18:33 09/09/17 18:33 - ADDITIONAL ORDERS Additional order review: Laboratory Results 09/09/17 18:33 Sodium 141 Potassium 4.6 Chloride 105 Carbon Dioxide 24 Anion Gap 12 BUN 32 H D Creatinine 7.8 H* Creat Clearance w eGFR 7.25 Random Glucose 119 H Calcium 8.2 L Total Bilirubin 0.3 D AST 34 D ALT 26 D Alkaline Phosphatase 114 D Total Protein 5.8 L D Albumin 2.0 L D 09/09/17 18:33 RBC Cancelled MCV Cancelled MCHC Cancelled RDW Cancelled MPV Cancelled Neutrophils % Cancelled Lymphocytes % Cancelled Monocytes % Cancelled Eosinophils % Cancelled Basophils % Cancelled - RADIOLOGY Radiograph Interpretation: 09/10/17 00:02 EXAM: CT facial bones INTERPRETED BY: Dr. Bernabe REVIEWED BY: Dr. Yeung IMPRESSION: Subcutaneous edema is seen along the left mid face at and below the level of the mandible. No obvious soft tissue abscess is identified on noncontrast imaging. Advanced dental and periodontal disease is seen involving the mandibular and maxillary molar teeth. An approximately 0.8 cm sharply marginated low-attenuation focus is seen within the left inferior alveolar ridge interposed between the first and second molar teeth. There is associated focal attenuation/erosion of the outer/buccal mandibular cortex - ? intraosseous abscess versus representing a noninflammatory/noninfectious lesion. The study partially images the intracranial structures. There is mild widening of the left cavernous sinus which may be on the basis of atherosclerotic vessel redundancy, versus representing a cavernous carotid artery aneurysm and less likely soft tissue pathology. Correlation with nonemergent MR angiography and contrast-enhanced MRI is suggested. Note is made of mild generalized renal atrophy which is probably somewhat more prominent than would be expected for the patient's chronologic age. <Ciarra Lao - Last Filed: 09/10/17 00:02> - LABORATORY CBC & Chemistry Diagram: 09/09/17 18:33 09/09/17 18:33 - ADDITIONAL ORDERS Additional order review: Laboratory Results 09/09/17 18:33 Sodium 141 Potassium 4.6 Chloride 105 Carbon Dioxide 24 Anion Gap 12 BUN 32 H D Creatinine 7.8 H* Creat Clearance w eGFR 7.25 Random Glucose 119 H Calcium 8.2 L Total Bilirubin 0.3 D AST 34 D ALT 26 D Alkaline Phosphatase 114 D Total Protein 5.8 L D Albumin 2.0 L D 09/09/17 18:33 RBC Cancelled MCV Cancelled MCHC Cancelled RDW Cancelled MPV Cancelled Neutrophils % Cancelled Lymphocytes % Cancelled Monocytes % Cancelled Eosinophils % Cancelled Basophils % Cancelled <Patricia Yeung - Last Filed: 09/10/17 00:15> Medical Decision Making - Medical Decision Making 09/09/17 23:56 First call placed to Dr. Gee at 23:57. Awaiting call back. <Ciarra Lao - Last Filed: 09/10/17 00:02> - Medical Decision Making 09/09/17 22:23 a/p: 57yo male with L facial swelling -sen by Dr. San for admssion/iv abx, ID eval -concern for mandible abscess -will check labs, cultures -pt is ESRD on HD T//Thu -no dental pain or sign of dental abscess/gum disease on exam -no ludwigs angina -no stridor or throat infections -no ttp, no erythema or warmth -will obtain CT facial bones to eval the bone -will discuss labs with Dr. San and admission -rocky to R chest wall for HD access, c/d/i 09/10/17 00:[address] Gee - accepts pt to service will place consult to ENT, OMFS, ID 09/10/17 00:13 pt with poss intraosseous infection with soft tissue edema to jaw on ct started on clinda <Patricia Yeung - Last Filed: 09/10/17 00:15> *DC/Admit/Observation/Transfer - Attestations Scribe Attestion: 09/09/17 23:04 Documentation prepared by Ciarra Lao, acting as medical accounting clerk for Patricia Yeung DO. <Ciarra Lao - Last Filed: 09/10/17 00:02> - Discharge Dispostion Admit: Yes - Attestations Physician Attestion: 09/10/17 00:15 I, Dr. Patricia Yeung DO, attest that this document has been prepared under my direction and personally reviewed by me in its entirety. I further attest, that it accurately reflects all work, treatment, procedures and medical decision -making performed by me. <Patricia Yeung - Last Filed: 09/10/17 00:15> Diagnosis at time of Disposition: ESRD on hemodialysis, Infection of mandible - Discharge Dispostion Condition at time of disposition: Fair - Referrals Referrals: Golden San MD [Staff Physician] - - Patient Instructions - Post Discharge Activity
[2017-09-09] MEDS ORDERED: CLINDAMYCIN 600MG PREMIX IVPB 600 MG/50 ML BAG IVPB ONE (23:54)
[2017-09-10] MEDS ORDERED: CLINDAMYCIN 600MG PREMIX IVPB 600 MG/50 ML BAG IVPB ONE (01:04)
[2017-09-10 01:14] LABS: BASO % 1.2 % (0-2.0); EOS % 10.2 % (0-4.5); HEMATOCRIT 36.1 % (35.4-49); HEMOGLOBIN 11.1 GM/dL (11.7-16.9); MCH 30.2 pg (25.7-33.7); MCHC 30.8 g/dl (32.0-35.9); MEAN PLT VOLUME 9.8 fl (7.5-11.1); MONO % 8.9 % (3.8-10.2); NEUT % 72.7 % (42.8-82.8); PLATELET COUNT 156 K/MM3 (134-434); RBC 3.69 M/mm3 (4.00-5.60); RDW 20.2 % (11.9-15.9); WHITE BLOOD COUNT 4.8 K/mm3 (4.0-10.0)
--- NOTE | 2017-09-10 07:42 | CON.CARD ---
Cardiology Consult (text) - Consultation Consultation Note: Cardiology Note Briefly, Mr. Dockery was sent to ER from my office for an enlarging left mandibular mass concern for abscess. 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 He had imaging of his lower back for chronic pain which excluded an acute abscess. He now needs his cultures followed, abx as per ID, ENT evaluation and his regular HD. Would continue ASA for now for his AF until this acute infection is resolved and then we can discuss starting warfarin for him. Due to the inclement weather today, I am not sure if we will be able to round on him but his current issues are not cardiac and we will follow him as needed. Thanks.
--- NOTE | 2017-09-10 08:47 | PN ---
Progress Note, Physician Chief Complaint: ID Full note dictated and discussed with Cardiology Noncompliant man ESRD admitted for mandibular swelling 2 days no fever or chills dental complaints Has not been to dentist and has history of heart valve replacements Recent [facility] admission - Objective Vital Signs: Vital Signs Temperature Pulse Rate 68 09/10/17 06:50 Respiratory Rate 16 09/10/17 06:50 Blood Pressure 106/63 09/10/17 06:50 O2 Sat by Pulse Oximetry (%) 95 09/10/17 06:50 Constitutional: Yes: No Distress HENT: Yes: Other (MIld swelling left mandibular area no indurated or tender NO adenopathy) Labs: CBC, BMP 09/10/17 00:45 09/09/17 18:33 Problem List - Problems (1) H/O heart valve replacement with bioprosthetic valve Code(s): Z95.3 - PRESENCE OF XENOGENIC HEART VALVE (2) ESRD on hemodialysis Code(s): N18.6 - END STAGE RENAL DISEASE; Z99.2 - DEPENDENCE ON RENAL DIALYSIS (3) Sialadenitis Code(s): K11.20 - SIALOADENITIS, UNSPECIFIED Assessment/Plan Microbiology 06/14/16 13:39 Nasopharyngeal Swab Influenza Types A,B Antigen (WEI) - Final 06/14/16 13:39 Nasopharyngeal Swab - Final 06/14/16 11:45 Blood - Peripheral Venous Blood Culture - Preliminary Pending Organism Pending Organism#2 06/14/16 11:45 Blood - Peripheral Venous Blood Culture - Preliminary Pending Organism Pending Organism#2 Selected Entries 09/10/17 06:50 Pulse Rate [ 68 Right Apical] Respiratory 16 Rate Blood Pressure 106/63 [Right Arm] O2 Sat by Pulse 95 Oximetry (%) Oxygen Flow 2 Rate Laboratory Tests 06/14/16 06/15/16 09/09/17 11:45 06:10 18:33 WBC 6.1 Hgb 11.2 L D Hct Plt Count 104 L BUN 32 H D Creatinine 7.8 H* Total Bilirubin 0.6 D 0.3 D Alkaline Phosphatase 166 H 114 D 09/10/17 00:45 WBC 4.8 Hgb 11.1 L Hct 36.1 Plt Count 156 BUN Creatinine Total Bilirubin Alkaline Phosphatase Assessment Sialdenitis ESRD Vlave replcacement Plan Can be switched to po therapy Augmentin 500mg bid 7 days Advise dental appt tushar Blood cultures sent Shantel LEIGH
--- NOTE | 2017-09-10 09:37 | CONS ---
DATE OF CONSULTATION: 09/10/2017 HISTORY OF PRESENT ILLNESS: This is a 57-year-old -Vietnamese male admittedfor an enlarging left mandibular swelling noted by his base cloth inspector, Dr. San. The swelling has been present for about 2 days and came up abruptly without any fever, chills, or dental complaint. In fact, the patient has not been into a dentist in some time. He has end-stage renal disease and is on chronic hemodialysis through a permacatheter. He also has a history of mitral valve and tricuspid valve endocarditis, and underwent bi-valvular heart repair, heart valve replacement, [facility] several years ago. I am asked to see him for further evaluation and treatment. Patient was recently in [facility] for about a week undergoing evaluation for structural heart disease with the opinion that he was deemed too high risk for any further cardiac surgery. PAST MEDICAL HISTORY: End-stage renal disease, MV and TV valve repair with history of endocarditis, atrial septal defect with bidirectional flow, paroxysmal atrial fibrillation, hypertension, prior cocaine use, chronic systolic and diastolic congestive heart failure. CURRENT MEDICATIONS: Include a dose of clindamycin given here. ALLERGIES: To IODINATED CONTRAST. SOCIAL HISTORY: Polysubstance abuse including cocaine in the past, every-day smoker. He denies alcohol use. HIV status unknown. FAMILY HISTORY: Noncontributory. REVIEW OF SYSTEMS: Respiratory: No cough, shortness of breath. Cardiac: No chest pain, palpitations, or syncope. Gastrointestinal: No abdominal pain, nausea, vomiting, or diarrhea. Genitourinary: End-stage renal disease with history of enlarged prostate. No dysuria, hematuria. PHYSICAL EXAMINATION: Vital signs: The patient was afebrile with a pulse of 82, blood pressure 100/53 , respirations 16. HEENT: Revealed mild left mandibular swelling without induration, tenderness, or fluctuance. The oral cavity had several remaining teeth , which grossly did not appear to be infected. Neck: Supple, with no adenopathy. Lungs: Clear to percussion auscultation. Heart: S1, S2, regular rhythm. Abdomen: Soft, nontender, without hepatosplenomegaly. Extremities: Revealed a nonfunctional fistula in the left arm, chest with a permacatheter in situ. DIAGNOSTIC DATA: Facial bone CT scan shows subcutaneous edema in the left mid face at or below the level of the mandible. No abscess is seen. Advanced dental and periodontal disease involving the mandibular and maxillary molar teeth. Approximately 0.8-cm sharply marginated low attenuation focus in the left inferior alveolar ridge interposed with the 1st and 2nd molar teeth. There is associated focal erosion of the outer buccal mandibular cortex. ? intraosseous abscess versus non-inflammatory infectious lesion. ASSESSMENT: Severe periodontal disease in this 57-year-old male with history of heart valve replacement, endocarditis along with end-stage renal disease. Clinically, the findings are not severe. There is minimal swelling, no tenderness, and no systemic features to suggest systemic infection. At this point, he can probably be managed with oral antibiotic. He has been recently hospitalized at [facility]. I would give him Augmentin adjusted for creatinine clearance for a week with strong recommendation to see a dentist as soon as possible for management of severe periodontal disease, particularly given his history of endocarditis and prior heart valve replacement. This was discussed with Dr. San. PADMAJA CORTES M.D. [id number] MTDRaymond
[2017-09-10] MEDS ORDERED: TAMSULOSIN HCL 0.4 MG CAP.ER.24H (FP) PO ONE (10:14)
--- NOTE | 2017-09-10 10:15 | PN ---
Progress Note (short form) - Note Progress Note: ID consult appreciated. Pt can be given po antibiotics. pt scheduled for HD today. No additional inpatient cardiac work up needed at this time.
--- NOTE | 2017-09-10 10:17 | CON.NEP ---
Consult Consult Specialty:: Nephrology Referred by:: ED Reason for Consultation:: ESRD on HD - History of Present Illness Chief Complaint: Facial Swelling History of Present Illness: 57 year old gentleman with PMhx of ESRD on HD, CHF, s/p Valve replacements who presented from beater operator office with facial swelling. Last dialysis was Thursday. - History Source History Provided By: Patient Limitations to Obtaining History: No Limitations - Past Medical History Cardio/Vascular: Yes: CHF (Chronic diastolic HF, Severe Pulm HTN), HTN, Hyperlipdemia, Mitral Insufficiency (s/p MVR (bio)), Pulmonary Hypertension, Other (Severe Tricuspid regurgitation, Endocarditis s/p TVR/MVR, recurrent bacteremia) Pulmonary: Yes: Other (PHTN) Gastrointestinal: Yes: Ascites, Constipation Hepatobiliary: Yes: Hepatitis C Renal/: Yes: Renal Failure, Hemodialysis Psych: Yes: Addictions Musculoskeletal: Yes: Bursitis (left shoulder pain) - Past Surgical History Past Surgical History: Yes: AV Fistula/Graft, Hernia Repair (11/19) - Alcohol/Substance Use Hx Alcohol Use: No History of Substance Use: reports: Cocaine (last use 2 weeks ago), Marijuana - Smoking History Smoking history: Current every day smoker Have you smoked in the past 12 months: Yes Aproximately how many cigarettes per day: 3 - Social History ADL: Independent 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 History of Recent Travel: No Home Medications - Allergies Allergies/Adverse Reactions: Allergies Allergy/AdvReac Type Severity Reaction Status Date / Time Iodinated Contrast- Oral and Allergy Verified 09/09/17 18:05 IV Dye CONTRAST Allergy Hives Uncoded 09/09/17 18:05 - Home Medications Home Medications: Ambulatory Orders Folic Acid 1 mg PO DAILY 09/11/16 Sevelamer Carbonate [Renvela -] 1,600 mg PO BID 09/11/16 Albuterol Sulfate 0.042% [Ventolin 0.042% (Half-Strength) -] 1 amp NEB TID PRN 04/22/17 Cyclobenzaprine HCl [Flexeril -] 10 mg PO HS 04/22/17 Tamsulosin HCl 0.4 mg PO DAILY 07/03/17 Acetaminophen [Tylenol .Regular Strength -] 650 mg PO Q6H PRN tablet 07/20/17 Albuterol 2.5/Ipratropium 0.5 [Duoneb -] 1 amp NEB Q4H PRN amp 07/20/17 Aspirin [ASA -] 81 mg PO DAILY tab.chew 07/20/17 Calcium Acetate [Phoslo -] 667 mg PO TIDCM capsule 07/20/17 Levothyroxine [Synthroid -] 25 mcg PO DAILY@0700 tablet 07/20/17 Metoprolol Succinate [Toprol XL -] 12.5 mg PO DAILY tab.sr.24h 07/20/17 Oxycodone HCl/Acetaminophen [Percocet 5-325 mg Tablet] 1 - 2 tab PO TID PRN #10 tab MDD 6 08/30/17 Family Disease History - Family Disease History Family Disease History: Other: Father ( of kidney failure), Mother (muscle problems), Sister (healthy and living, HTN) Nephrology Consult - Height Height: 6 ft 2 in - Weight Weight: 73.936 kg - BMI Body Mass Index (BMI): 20.9 - Lab Results CBC,BMP: CBC, BMP 09/10/17 00:45 09/09/17 18:33 Anion Gap: Anion Gap Anion Gap 12 (8-16) 09/09/17 18:33 - Physical Examination Vital Signs: Vital Signs Temperature Pulse Rate 69 09/10/17 08:42 Respiratory Rate 16 09/10/17 08:42 Blood Pressure 101/67 09/10/17 08:42 O2 Sat by Pulse Oximetry (%) 94 L 09/10/17 08:42 Assessment/Plan 57 year old gentleman with PMhx of ESRD on HD, CHF, s/p Valve replacements who presented from beater operator office with facial swelling. #Facial swelling/Oral infection s/p CT of facial bones on Po Augmenten per ID #ESRD on HD for dialysis today as inpatient dose all meds for intermittent HD fluid and salt restriction #CHF/Valvular disease Cardiology followng pt appers evolemic at the present time #Suspected Osteomylitis on lasix admission. at [place] imaging and cultures negative for infection Thank you Full consult to follow Abdirashid Guthrie DO
[2017-09-10] MEDS ORDERED: TAMSULOSIN HCL 0.4 MG CAP.ER.24H (FP) ONE (10:22)
[2017-09-10 13:06] LABS: ANION GAP 10 (8-16); BLOOD UREA NITROGEN 38 mg/dL (7-18); CALCIUM 7.5 mg/dL (8.5-10.1); CHLORIDE 107 mmol/L (98-107); CO2 25 mmol/L (21-32); GLUCOSE,RANDOM 82 mg/dL (74-106); POTASSIUM 4.6 mmol/L (3.5-5.1); SODIUM 142 mmol/L (136-145)
[2017-09-10 13:08] LABS: CREATININE 8.7 mg/dL (0.7-1.3)
--- NOTE | 2017-09-10 13:51 | CON.ENT ---
Consult Consult Specialty:: ENT Referred by:: Dr. Gee Reason for Consultation:: rule out mandibular infection - History of Present Illness Chief Complaint: jaw swelling History of Present Illness: 57 yo M with hx ESRD on hemodialysis, noted to have jaw swelling no fever, minimal pain voice clear, no problems eating, drinking or swallowing, no dyspnea no dental care for a while, presented to [facility] Department last night, ID consultation and Nepyhrology consultations noted had CT scan of facial bones shows dental/mandibular changes consistent with infection, no antoinette abscess present. pt has hx endocarditis, mitral and tricuspid valves, s/p valve replacement of mitral and tricuspid valves presently having hemodialysis during interview and examination. - History Source History Provided By: Patient, Medical Record Limitations to Obtaining History: No Limitations - Past Medical History Cardio/Vascular: Yes: CHF (Chronic diastolic HF, Severe Pulm HTN), HTN, Hyperlipdemia, Mitral Insufficiency (s/p MVR (bio)), Pulmonary Hypertension, Other (Severe Tricuspid regurgitation, Endocarditis s/p TVR/MVR, recurrent bacteremia) Pulmonary: Yes: Other (PHTN) Gastrointestinal: Yes: Ascites, Constipation Hepatobiliary: Yes: Hepatitis C Renal/: Yes: Renal Failure, Hemodialysis Psych: Yes: Addictions Musculoskeletal: Yes: Bursitis (left shoulder pain) - Past Surgical History Past Surgical History: Yes: AV Fistula/Graft, Hernia Repair (11/19) - Alcohol/Substance Use Hx Alcohol Use: No History of Substance Use: reports: Cocaine (last use 2 weeks ago), Marijuana - Smoking History Smoking history: Current every day smoker Have you smoked in the past 12 months: Yes Aproximately how many cigarettes per day: 3 - Social History ADL: Independent 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 History of Recent Travel: No Home Medications - Allergies Allergies/Adverse Reactions: Allergies Allergy/AdvReac Type Severity Reaction Status Date / Time Iodinated Contrast- Oral and Allergy Verified 09/09/17 18:05 IV Dye CONTRAST Allergy Hives Uncoded 09/09/17 18:05 - Home Medications Home Medications: Ambulatory Orders Folic Acid 1 mg PO DAILY 09/11/16 Sevelamer Carbonate [Renvela -] 1,600 mg PO BID 09/11/16 Albuterol Sulfate 0.042% [Ventolin 0.042% (Half-Strength) -] 1 amp NEB TID PRN 04/22/17 Cyclobenzaprine HCl [Flexeril -] 10 mg PO HS 04/22/17 Tamsulosin HCl 0.4 mg PO DAILY 07/03/17 Acetaminophen [Tylenol .Regular Strength -] 650 mg PO Q6H PRN tablet 07/20/17 Albuterol 2.5/Ipratropium 0.5 [Duoneb -] 1 amp NEB Q4H PRN amp 07/20/17 Aspirin [ASA -] 81 mg PO DAILY tab.chew 07/20/17 Calcium Acetate [Phoslo -] 667 mg PO TIDCM capsule 07/20/17 Levothyroxine [Synthroid -] 25 mcg PO DAILY@0700 tablet 07/20/17 Metoprolol Succinate [Toprol XL -] 12.5 mg PO DAILY tab.sr.24h 07/20/17 Oxycodone HCl/Acetaminophen [Percocet 5-325 mg Tablet] 1 - 2 tab PO TID PRN #10 tab MDD 6 08/30/17 Family Disease History - Family Disease History Family Disease History: Other: Father ( of kidney failure), Mother (muscle problems), Sister (healthy and living, HTN) Physical Exam-ENT Vital Signs: Vital Signs Temperature Pulse Rate 72 09/10/17 12:35 Respiratory Rate 18 09/10/17 12:35 Blood Pressure 100/49 09/10/17 12:35 O2 Sat by Pulse Oximetry (%) 94 L 09/10/17 08:42 Constitutional: Yes: No Distress, Calm Head: Yes: WNL Eyes: Yes: WNL Nose: Yes: WNL Oral/Pharynx: Yes: WNL, Other (no trismus, maxillary dentition WNL, mandibular teeth +bilateral molar decay, only roots visible, no purulent drainage, tongue WNL, floor of mouth normal, NO swelling, oropharynx clear, sl narrow but no edema of uvula, voice clear and strong, no stridor or respiratory distress) Outer Ear: Yes: WNL Neck: Yes: WNL, Other (mild swelling left mandible, no point tenderness, no fluctuance or induration, no clinical evidence of abscess) Respiratory: Yes: WNL Neurological: Yes: Alert, Oriented Imaging - Results Cat Scan: Report Reviewed, Image Reviewed Problem List - Problems (1) Infection of mandible Assessment/Plan: recent onset left jaw swelling, no abscess but dental infectious etiology highly suspected concur with Dr. Funes that there is no evidence of an acute soft tissue abscess extensive dental decay of bilateral mandibular dentition on examination Recommend: antibiotics as recommended pt should see a dentist ALAYNA when his clinical condition allows no airway obstruction, voice and swallowing functions are not affected Thank you for consultation Marco Oseguera MD FACS Code(s): M27.2 - INFLAMMATORY CONDITIONS OF JAWS
[2017-09-10 15:57] LABS: CREATININE 3.7 mg/dL (0.7-1.3)
[2017-09-10] MEDS ORDERED: AMOX TR/POT CLAV 500MG/125MG TABLETS (FP) ONE (17:57)
[2017-09-10] MEDS: AMOX TR/POT CLAV 500MG/125MG TABLETS (FP) PO SCH (17:58)
[2017-09-10 20:52] VITALS: BMI 20.3
--- NOTE | 2017-09-10 21:52 | HP ---
CHIEF COMPLAINT: left facial swelling PCP: Omar Russell was asked to cover for Dr. Gee due to inclement weather HISTORY OF PRESENT ILLNESS: This is a 57 year old male with a past medical history of DM2, ESRD TuThSa, COPD , asthma, pHTN, hypoTN, HLD, anemia, ASD with bidirectional flow, chronic systolic and diastolic HF, endocarditis s/p MV&TV replacement with persistent bacteremia presented to the ED on 09/09/16 for left lower facial swelling x 2 day. Recent Travel: pt denies PAST MEDICAL HISTORY: as above PAST SURGICAL HISTORY: MV/TV replacement hernia repair lung surgery- + MRSA in pleura failed AV fistula left forearm Social History: Smokin cig/day Alcohol: pt denies Drugs: h/o cocaine, states last use was in May Family History: Allergies Iodinated Contrast- Oral and IV Dye Allergy (Verified 09/09/17 18:05) HIVES CONTRAST Allergy (Uncoded 09/09/17 18:05) Hives HOME MEDICATIONS: 3 Medication Instructions Recorded Folic Acid 1 mg PO DAILY 09/11/16 Sevelamer Carbonate [Renvela -] 1,600 mg PO BID 09/11/16 Albuterol Sulfate 0.042% [Ventolin 1 amp NEB TID PRN 04/22/17 0.042% (Half-Strength) -] Cyclobenzaprine HCl [Flexeril -] 10 mg PO HS 04/22/17 Tamsulosin HCl 0.4 mg PO DAILY 07/03/17 Acetaminophen [Tylenol .Regular 650 mg PO Q6H PRN tablet 07/20/17 Strength -] Albuterol 2.5/Ipratropium 0.5 1 amp NEB Q4H PRN amp 07/20/17 [Duoneb -] Aspirin [ASA -] 81 mg PO DAILY tab.chew 07/20/17 Calcium Acetate [Phoslo -] 667 mg PO TIDCM capsule 07/20/17 Levothyroxine [Synthroid -] 25 mcg PO DAILY@0700 tablet 07/20/17 Metoprolol Succinate [Toprol XL -] 12.5 mg PO DAILY tab.sr.24h 07/20/17 Oxycodone HCl/Acetaminophen 1 - 2 tab PO TID PRN #10 tab MDD 6 08/30/17 [Percocet 5-325 mg Tablet] REVIEW OF SYSTEMS CONSTITUTIONAL: Absent: fever, chills, diaphoresis, generalized weakness, malaise, loss of appetite, weight change HEENT: Absent: rhinorrhea, nasal congestion, throat pain, throat swelling, difficulty swallowing, mouth swelling, ear pain, eye pain, visual changes CARDIOVASCULAR: Absent: chest pain, syncope, palpitations, irregular heart rate, lightheadedness , peripheral edema RESPIRATORY: Absent: cough, shortness of breath, dyspnea with exertion, orthopnea, wheezing, stridor, hemoptysis GASTROINTESTINAL: Absent: abdominal pain, abdominal distension, nausea, vomiting, diarrhea, constipation, melena, hematochezia GENITOURINARY: Absent: dysuria, frequency, urgency, hesitancy, hematuria, flank pain, genital pain MUSCULOSKELETAL: Absent: myalgia, arthralgia, joint swelling, back pain, neck pain SKIN: Absent: rash, itching, pallor HEMATOLOGIC/IMMUNOLOGIC: Absent: easy bleeding, easy bruising, lymphadenopathy, frequent infections ENDOCRINE: Absent: unexplained weight gain, unexplained weight loss, heat intolerance, cold intolerance NEUROLOGIC: Absent: headache, focal weakness or paresthesias, dizziness, unsteady gait, seizure, mental status changes, bladder or bowel incontinence PSYCHIATRIC: Absent: anxiety, depression, suicidal or homicidal ideation, hallucinations. PHYSICAL EXAMINATION Vital Signs - 24 hr 09/10/17 09/10/17 09/10/17 06:50 08:42 11:25 Temperature Pulse Rate 68 Pulse Rate [ 68 69 Right Apical] Respiratory 16 16 18 Rate Blood Pressure 126/70 Blood Pressure 106/63 101/67 [Right Arm] O2 Sat by Pulse 95 94 L Oximetry (%) 09/10/17 09/10/17 09/10/17 11:35 12:05 12:35 Temperature Pulse Rate 66 75 72 Pulse Rate [ Right Apical] Respiratory 18 18 18 Rate Blood Pressure 114/47 100/54 100/49 Blood Pressure [Right Arm] O2 Sat by Pulse Oximetry (%) 09/10/17 09/10/17 09/10/17 13:05 13:35 14:05 Temperature Pulse Rate 62 86 83 Pulse Rate [ Right Apical] Respiratory 18 18 Rate Blood Pressure 104/47 129/54 95/39 Blood Pressure [Right Arm] O2 Sat by Pulse Oximetry (%) 09/10/17 09/10/17 09/10/17 14:35 14:50 16:26 Temperature 98.7 F Pulse Rate 87 91 H Pulse Rate [ 85 Right Apical] Respiratory 18 18 16 Rate Blood Pressure 97/47 102/54 Blood Pressure 107/55 [Right Arm] O2 Sat by Pulse 94 L Oximetry (%) 3 09/10/17 09/10/17 19:23 20:37 Temperature 97.6 F 98.3 F Pulse Rate 78 Pulse Rate [ 82 Right Apical] Respiratory 14 18 Rate Blood Pressure 98/52 Blood Pressure 112/73 [Right Arm] O2 Sat by Pulse 93 L 96 Oximetry (%) GENERAL: Awake, alert, and fully oriented, in no acute distress. HEAD: Normal with no signs of trauma. mild swelling left mandible, no point tenderness, no fluctuance or induration EYES: Pupils equal, round and reactive to light, extraocular movements intact, sclera anicteric, conjunctiva clear. No lid lag. EARS, NOSE, THROAT: Ears normal, nares patent, oropharynx clear without exudates. Moist mucous membranes. bilateral molar decay with roots visible NECK: Normal range of motion, supple without lymphadenopathy, JVD, or masses. LUNGS: Breath sounds equal, clear to auscultation bilaterally. No wheezes, and no crackles. No accessory muscle use. HEART: Regular rate and rhythm, normal S1 and S2 without rub or gallop. Loud systolic murmur heard throughout precordium ABDOMEN: Soft, nontender, not distended, normoactive bowel sounds, no guarding, no rebound, no masses. No hepatomegaly or splenomegaly. MUSCULOSKELETAL: Normal range of motion at all joints. No bony deformities or tenderness. No CVA tenderness. UPPER EXTREMITIES: 2+ pulses, warm, well-perfused. No cyanosis. No clubbing. No peripheral edema. LOWER EXTREMITIES: 2+ pulses, warm, well-perfused. No calf tenderness. No peripheral edema. NEUROLOGICAL: Cranial nerves II-XII intact. Normal speech. Normal gait. PSYCHIATRIC: Cooperative. Good eye contact. Appropriate mood and affect. SKIN: Warm, dry, normal turgor, no rashes or lesions noted, normal capillary refill. Laboratory Results - last 24 hr 3 09/10/17 09/10/17 09/10/17 00:45 12:00 14:30 WBC 4.8 RBC 3.69 L Hgb 11.1 L Hct 36.1 MCV 98.0 H MCH 30.2 MCHC 30.8 L RDW 20.2 H Plt Count 156 MPV 9.8 Neutrophils % 72.7 Lymphocytes % 7.0 L D Monocytes % 8.9 Eosinophils % 10.2 H Basophils % 1.2 Sodium 142 Potassium 4.6 Chloride 107 Carbon Dioxide 25 Anion Gap 10 BUN 38 H 14 D Creatinine 8.7 H* 3.7 H D Random Glucose 82 D Calcium 7.5 L ASSESSMENT/PLAN: 57yM with PMH DM2, ESRD TuThSa, COPD, asthma, pHTN, hypoTN, HLD, anemia, ASD with bidirectional flow, chronic systolic and diastolic HF, endocarditis s/p MV& TV replacement with persistent bacteremia presented to the ED with left lower facial swelling. Left jaw swelling - evaluated by ID & ENT, IV antibiotics changed to augmentin - will need to f/u with a dentist as outpatient - if labs ok in am, consider DC ESRD - cont dialysis as per renal - Pt mentioned that Dr. Larson stopped in to see pt while he was on dialysis; pt states Dr. Larson may want to place new AV fistula? 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 Visit type - Emergency Visit Emergency Visit: Yes ED Registration Date: 09/09/17 Care time: The patient presented to the Emergency Department on the above date and was hospitalized for further evaluation of their emergent condition. - New Patient This patient is new to me today: Yes Date on this admission: 09/10/17 - Critical Care Critical Care patient: No
--- NOTE | 2017-09-10 22:21 | HP ---
Admitting History and Physical - Past Medical History Cardiovascular: Yes: CHF (Chronic diastolic HF, Severe Pulm HTN), HTN, Hyperlipdemia, Mitral Insufficiency (s/p MVR (bio)), Pulmonary Hypertension, Other (Severe Tricuspid regurgitation, Endocarditis s/p TVR/MVR, recurrent bacteremia) Pulmonary: Yes: Other (PHTN) Gastrointestinal: Yes: Ascites, Constipation Hepatobiliary: Yes: Hepatitis C Renal/: Yes: Renal Failure, Hemodialysis Heme/Onc: Yes: Anemia Psych: Yes: Addictions Musculoskeletal: Yes: Bursitis (left shoulder pain) - Past Surgical History Past Surgical History: Yes: AV Fistula/Graft, Hernia Repair (11/19) - Smoking History Smoking history: Current every day smoker Have you smoked in the past 12 months: Yes Aproximately how many cigarettes per day: 3 - Alcohol/Substance Use Hx Alcohol Use: No History of Substance Use: reports: Cocaine (last use 2 weeks ago), Marijuana - Social History ADL: Independent 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[employer] History of Recent Travel: No Home Medications - Allergies Allergies/Adverse Reactions: Allergies Allergy/AdvReac Type Severity Reaction Status Date / Time Iodinated Contrast- Oral and Allergy Verified 09/09/17 18:05 IV Dye CONTRAST Allergy Hives Uncoded 09/09/17 18:05 - Home Medications Home Medications: Ambulatory Orders Folic Acid 1 mg PO DAILY 09/11/16 Sevelamer Carbonate [Renvela -] 1,600 mg PO BID 09/11/16 Albuterol Sulfate 0.042% [Ventolin 0.042% (Half-Strength) -] 1 amp NEB TID PRN 04/22/17 Cyclobenzaprine HCl [Flexeril -] 10 mg PO HS 04/22/17 Tamsulosin HCl 0.4 mg PO DAILY 07/03/17 Acetaminophen [Tylenol .Regular Strength -] 650 mg PO Q6H PRN tablet 07/20/17 Albuterol 2.5/Ipratropium 0.5 [Duoneb -] 1 amp NEB Q4H PRN amp 07/20/17 Aspirin [ASA -] 81 mg PO DAILY tab.chew 07/20/17 Calcium Acetate [Phoslo -] 667 mg PO TIDCM capsule 07/20/17 Levothyroxine [Synthroid -] 25 mcg PO DAILY@0700 tablet 11/13/17 Metoprolol Succinate [Toprol XL -] 12.5 mg PO DAILY tab.sr.24h 07/20/17 Oxycodone HCl/Acetaminophen [Percocet 5-325 mg Tablet] 1 - 2 tab PO TID PRN #10 tab MDD 6 08/30/17 Family Disease History - Family Disease History Family Disease History: Other: Father ( of kidney failure), Mother (muscle problems), Sister (healthy and living, HTN) Physical Examination Vital Signs: Vital Signs Temperature 98.3 F 09/10/17 20:37 Pulse Rate 78 09/10/17 20:37 Respiratory Rate 18 09/10/17 20:37 Blood Pressure 98/52 09/10/17 20:37 O2 Sat by Pulse Oximetry (%) 96 09/10/17 20:37 Labs: CBC, BMP 09/10/17 00:45 09/10/17 14:30
[2017-09-10] MEDS ORDERED: ACETAMINOPHEN 325 MG TABLET (FP) PO PRN (22:51)
[2017-09-11] MEDS: LEVOTHYROXINE NA 25 MCG TABLET (FP) PO SCH (06:44)
[2017-09-11] MEDS: SEVELAMER CARBONATE 800 MG TAB (FP) PO SCH ×2 (08:24→17:06)
[2017-09-11] MEDS: TAMSULOSIN HCL 0.4 MG CAP.ER.24H (FP) PO SCH (08:25)
[2017-09-11] MEDS: AMOX TR/POT CLAV 500MG/125MG TABLETS (FP) PO SCH ×2 (08:25→17:06)
[2017-09-11] MEDS: CALCIUM ACETATE 667 MG CAPSULE (FP) PO SCH ×3 (08:25→17:07)
--- NOTE | 2017-09-11 09:46 | PN ---
Progress Note, Physician Chief Complaint: no distress - Current Medication List Current Medications: Active Medications Acetaminophen (Tylenol -) 650 mg PO Q6H PRN PRN Reason: FEVER OR PAIN Amoxicillin/Clavulanate Potassium (Augmentin - 500mg Tablet) 1 tab PO BID@0800, 1730 [facility] Last Admin: 09/11/17 08:25 Dose: 1 tab Aspirin (Asa -) 81 mg PO DAILY [facility] Calcium Acetate (Phoslo -) 667 mg PO TIDCM [facility] Last Admin: 09/11/17 08:25 Dose: 667 mg Folic Acid (Folic Acid -) 1 mg PO DAILY [facility] Heparin Sodium (Porcine) (Heparin -) 5,000 unit SQ BID [facility] Levothyroxine Sodium (Synthroid -) 25 mcg PO DAILY@0700 [facility] Last Admin: 09/11/17 06:44 Dose: 25 mcg Metoprolol Succinate (Toprol Xl -) 12.5 mg PO DAILY [facility] Sevelamer Carbonate (Renvela -) 1,600 mg PO BIDWM [facility] Last Admin: 09/11/17 08:24 Dose: 1,600 mg Tamsulosin HCl (Flomax -) 0.4 mg PO DAILY@0830 [facility] Last Admin: 09/11/17 08:25 Dose: 0.4 mg - Objective Vital Signs: Vital Signs Temperature 98.3 F 09/11/17 08:17 Pulse Rate 65 09/11/17 08:17 Respiratory Rate 20 09/11/17 08:17 Blood Pressure 93/50 09/11/17 08:17 O2 Sat by Pulse Oximetry (%) 96 09/10/17 20:37 Constitutional: Yes: No Distress Cardiovascular: Yes: Regular Rate and Rhythm Respiratory: Yes: Other (slight decreased breath sounds at bases) Edema: No Neurological: Yes: Alert Labs: CBC, BMP 09/10/17 00:45 09/10/17 14:30 Microbiology 09/10/17 00:45 Blood - Peripheral Venous Blood Culture - Preliminary NO GROWTH OBTAINED AFTER 24 HOURS, INCUBATION TO CONTINUE FOR 4 DAYS. 09/10/17 00:45 Blood - Peripheral Venous Blood Culture - Preliminary NO GROWTH OBTAINED AFTER 24 HOURS, INCUBATION TO CONTINUE FOR 4 DAYS. Assessment/Plan IMP: Dental abscess ESRD History MV/TC repair for IE REC: As per ID, abscess can be managed as outpatient w/ PO abx For his PAF, would continue ASA for now until he can demonstrate reliable outpatient f/u and no further drug use.
[2017-09-11] MEDS ORDERED: TAMSULOSIN HCL 0.4 MG CAP.ER.24H (FP) PO SCH (10:00)
[2017-09-11] MEDS: metoPROLOL SUCCINATE 25 MG TAB.SR.24H (FP) PO SCH (10:13)
[2017-09-11] MEDS: FOLIC ACID 1 MG TABLET (FP) PO SCH (10:14)
[2017-09-11] MEDS: HEPARIN NA (PORCINE) 5,000 UNITS/ML 1ML VIAL SQ SCH ×3 (10:14→21:27)
[2017-09-11] MEDS: ASPIRIN 81 MG CHEWABLE TABLETS PO SCH (10:14)
--- NOTE | 2017-09-11 22:25 | PN ---
Progress Note, Physician - Current Medication List Current Medications: Active Medications Acetaminophen (Tylenol -) 650 mg PO Q6H PRN PRN Reason: FEVER OR PAIN Amoxicillin/Clavulanate Potassium (Augmentin - 500mg Tablet) 1 tab PO BID@0800, 1730 ON [facility] Last Admin: 09/11/17 17:06 Dose: 1 tab Aspirin (Asa -) 81 mg PO DAILY [facility] Last Admin: 09/11/17 10:14 Dose: 81 mg Calcium Acetate (Phoslo -) 667 mg PO TIDCM ON [facility] Last Admin: 09/11/17 17:07 Dose: 667 mg Folic Acid (Folic Acid -) 1 mg PO DAILY ON [facility] Last Admin: 09/11/17 10:14 Dose: 1 mg Heparin Sodium (Porcine) (Heparin -) 5,000 unit SQ BID ON [facility] Last Admin: 09/11/17 21:27 Dose: Not Given Levothyroxine Sodium (Synthroid -) 25 mcg PO DAILY@0700 ON [facility] Last Admin: 09/11/17 06:44 Dose: 25 mcg Metoprolol Succinate (Toprol Xl -) 12.5 mg PO DAILY ON [facility] Last Admin: 09/11/17 10:13 Dose: 12.5 mg Sevelamer Carbonate (Renvela -) 1,600 mg PO BIDWM ON [facility] Last Admin: 09/11/17 17:06 Dose: 1,600 mg Tamsulosin HCl (Flomax -) 0.4 mg PO DAILY@0830 ON [facility] Last Admin: 09/11/17 08:25 Dose: 0.4 mg - Objective Vital Signs: Vital Signs Temperature 98.5 F 09/11/17 16:15 Pulse Rate 64 09/11/17 16:15 Respiratory Rate 20 09/11/17 16:15 Blood Pressure 90/55 09/11/17 16:15 O2 Sat by Pulse Oximetry (%) 95 09/11/17 20:33 Labs: CBC, BMP 09/10/17 00:45 09/10/17 14:30
[2017-09-12 04:28] VITALS: BP 116/70; PULSE 70; TEMP 98.9
[2017-09-12] MEDS: LEVOTHYROXINE NA 25 MCG TABLET (FP) PO SCH (06:20)
[2017-09-12] MEDS ORDERED: PT OWN MED DRAWER 7, Y5N ONE (08:31)
[2017-09-12] MEDS: SEVELAMER CARBONATE 800 MG TAB (FP) PO SCH (08:33)
[2017-09-12] MEDS: CALCIUM ACETATE 667 MG CAPSULE (FP) PO SCH (08:33)
[2017-09-12] MEDS: TAMSULOSIN HCL 0.4 MG CAP.ER.24H (FP) PO SCH (08:33)
[2017-09-12] MEDS: AMOX TR/POT CLAV 500MG/125MG TABLETS (FP) PO SCH (08:33)
[2017-09-12] MEDS: ASPIRIN 81 MG CHEWABLE TABLETS PO SCH (08:58)
[2017-09-12] MEDS: FOLIC ACID 1 MG TABLET (FP) PO SCH (08:58)
[2017-09-12] MEDS: HEPARIN NA (PORCINE) 5,000 UNITS/ML 1ML VIAL SQ SCH (08:59)
[2017-09-12] MEDS: metoPROLOL SUCCINATE 25 MG TAB.SR.24H (FP) PO SCH (08:59)
[2017-09-12] MEDS ORDERED: EPOETIN ALFA 10,000 UNIT/1 ML VIAL SQ ONE (10:45)
--- NOTE | 2017-09-12 10:51 | PN ---
Progress Note (short form) - Note Progress Note: The patient is extremely non-compliant, and has decided to move on with another shift commander as outpatient. seen him at the request of the dialysis nurse, because he has not received dialysis since . He is very abusive verbally, and extremely disrespectful. Nevertheless, I wrote his orders for dialysis, as it would otherwise hurt him without dialysis. Orders written and reviewed with the dialysis nurse. When discharged, he will return to the [facility] he chose. Ashley Tavarez MD Problem List - Problems (1) Infection of mandible Code(s): M27.2 - INFLAMMATORY CONDITIONS OF JAWS (2) ESRD on hemodialysis Code(s): N18.6 - END STAGE RENAL DISEASE; Z99.2 - DEPENDENCE ON RENAL DIALYSIS (3) Anemia in CKD (chronic kidney disease) Code(s): N18.9 - CHRONIC KIDNEY DISEASE, UNSPECIFIED; D63.1 - ANEMIA IN CHRONIC KIDNEY DISEASE (4) Atrial fibrillation with RVR Code(s): I48.91 - UNSPECIFIED ATRIAL FIBRILLATION (5) Atrial septal defect Code(s): Q21.1 - ATRIAL SEPTAL DEFECT (6) CHF (congestive heart failure) Code(s): I50.9 - HEART FAILURE, UNSPECIFIED
== END 2017-09-12 11:00 | disposition home or self-care (01) | DRG 114 ==
LOC: JER 17:43 → JERBED 09-10 00:15 → J6S 09-10 20:17
PROVIDERS: ADMIT Internal Medicine; ATTEND Internal Medicine
PROC: 5A1D70Z Performance of Urinary Filtration, Intermittent, Less than 6 Hours Per Day (ICD-10-PCS; principal; 2017-09-10)
DX: M27.2 Inflammatory conditions of jaws (principal); E78.5 Hyperlipidemia, unspecified; J44.9 Chronic obstructive pulmonary disease, unspecified; D64.9 Anemia, unspecified; I95.89 Other hypotension; F17.200 Nicotine dependence, unspecified, uncomplicated; Z95.2 Presence of prosthetic heart valve; N40.0 Benign prostatic hyperplasia without lower urinary tract symptoms; I48.91 Unspecified atrial fibrillation; I13.2 Hypertensive heart and chronic kidney disease with heart failure and with stage 5 chronic kidney disease, or end stage renal disease; E11.22 Type 2 diabetes mellitus with diabetic chronic kidney disease; N18.6 End stage renal disease; I50.42 Chronic combined systolic (congestive) and diastolic (congestive) heart failure; I27.20 Pulmonary hypertension, unspecified; K11.20 Sialoadenitis, unspecified; I08.1 Rheumatic disorders of both mitral and tricuspid valves; D63.1 Anemia in chronic kidney disease; Q21.1 Atrial septal defect; M75.52 Bursitis of left shoulder; K59.09 Other constipation; Z99.2 Dependence on renal dialysis; Z86.19 Personal history of other infectious and parasitic diseases; Z91.14 Patient's other noncompliance with medication regimen
CPT/HCPCS: 36415; 70486-TC; 80048; 80053; 82565; 84520; 85025; 87040; 87076; 99282-25; J1644

== ENCOUNTER 2017-09-20 11:11 | Inpatient (IN) | payer OTHER ==
--- NOTE | 2017-09-20 11:27 | PDOC ---
History of Present Illness - General Stated Complaint: Weakness Time Seen by Provider: 09/20/17 11:19 History Source: Patient - History of Present Illness Timing/Duration: other Severity: moderate Associated Symptoms: reports: weakness. denies: chest pain, cough, fever/chills , nausea/vomiting, shortness of breath Past History - Past Medical History Allergies/Adverse Reactions: Allergies Allergy/AdvReac Type Severity Reaction Status Date / Time Iodinated Contrast- Oral and Allergy Verified 09/20/17 11:58 IV Dye CONTRAST Allergy Hives Uncoded 09/20/17 11:58 Home Medications: Ambulatory Orders Folic Acid 1 mg PO DAILY 09/11/16 Sevelamer Carbonate [Renvela -] 1,600 mg PO BID 09/11/16 Albuterol Sulfate 0.042% [Ventolin 0.042% (Half-Strength) -] 1 amp NEB TID PRN 04/22/17 Cyclobenzaprine HCl [Flexeril -] 10 mg PO HS 04/22/17 Tamsulosin HCl 0.4 mg PO DAILY 07/03/17 Acetaminophen [Tylenol .Regular Strength -] 650 mg PO Q6H PRN tablet 07/20/17 Albuterol 2.5/Ipratropium 0.5 [Duoneb -] 1 amp NEB Q4H PRN amp 07/20/17 Aspirin [ASA -] 81 mg PO DAILY tab.chew 07/20/17 Calcium Acetate [Phoslo -] 667 mg PO TIDCM capsule 07/20/17 Levothyroxine [Synthroid -] 25 mcg PO DAILY@0700 tablet 07/20/17 Metoprolol Succinate [Toprol XL -] 12.5 mg PO DAILY tab.sr.24h 07/20/17 Oxycodone HCl/Acetaminophen [Percocet 5-325 mg Tablet] 1 - 2 tab PO TID PRN #10 tab MDD 6 08/30/17 Amox-Tr/K Cl [Augmentin 500-125mg Tablet -] 1 tab PO BID@0800,1730 #20 tablet Tamsulosin HCl [Flomax -] 0.4 mg PO DAILY@0830 cap.er.24h 09/11/17 Anemia: Yes Asthma: Yes Cancer: No Cardiac Disorders: Yes (2X VALVE REPLACEMENT,endocarditis) CVA: No COPD: Yes CHF: No Dementia: No Diabetes: No Dialysis: Yes () GI Disorders: Yes Disorders: Yes (ENLARGED PROSTATE) HTN: (LOW BP) Hypercholesterolemia: Yes Liver Disease: No Seizures: No Thyroid Disease: No - Surgical History Abdominal Surgery: No Appendectomy: No Cardiac Surgery: Yes (2 VALVES REPLACED 04/2015) Cholecystectomy: No Lung Surgery: Yes (h/o MRSA pleural tissue) Neurologic Surgery: No Orthopedic Surgery: No - Immunization History Immunization Up to Date: No - Suicide/Smoking/Psychosocial Hx Smoking Status: Yes Smoking History: Current every day smoker Have you smoked in the past 12 months: Yes Number of Cigarettes Smoked Daily: 3 'Breaking Loose' booklet given: 09/10/17 Hx Alcohol Use: No Drug/Substance Use Hx: No Substance Use Type: None Hx Substance Use Treatment: Yes (rehab, detox) Review of Systems - Review of Systems Constitutional: Yes: Weakness. No: Chills, Fever Respiratory: No: Shortness of Breath Cardiac (ROS): No: Chest Pain ABD/GI: Yes: Diarrhea. No: Nausea, Vomiting, Abdominal cramping *Physical Exam - Physical Exam General Appearance: Yes: Appropriately Dressed. No: Apparent Distress HEENT: positive: Normal Voice, Other (npd swelling to L mandible, no induration/ fluctuance, poor dentition w/ extractions/caries) Neck: negative: Lymphadenopathy (R), Lymphadenopathy (L) Respiratory/Chest: negative: Respiratory Distress Gastrointestinal/Abdominal: positive: Soft. negative: Tender Integumentary: positive: Dry, Warm Neurologic: positive: Fully Oriented, Alert, Normal Mood/Affect ED Treatment Course - LABORATORY CBC & Chemistry Diagram: 09/20/17 11:51 09/20/17 14:10 Medical Decision Making - Medical Decision Making 09/20/17 11:22 57-year-old male history of [id number] diabetes, end-stage renal disease, Tuesdays and Saturdays, missed dialysis yesterday 2/2 weather /malaise as per patient, anemia, asthma, COPD, hypertension, hyperlipidemia, cardiac valce surgery, endocarditis, status post recent admission for left- sided facial swelling, p/w diarrhea and generalized weakness x 2 days. During recent admission, patient was found to have w/ ? intraosseous abscess w/ soft tissue edema and extensive dental/peridontal disease on CT. Seen by ID who rec augmentin and dental f/u. Patient states antibiotics was not delivered to his home until 4 days ago and states he only took 2 doses because he developed multiple episodes of profuse non-bloody watery diarrhea soon after starting meds. Now complaining of feeling generally weak. Now feels weak. Denies abdominal pain, nausea, vomiting, fever or chills See exam R/o Cdif vs SE of abx Pt well pierce and stable w/ exam only remarkable for moderate left-sided facial swelling without any induration or fluctuance, poor dentition involving multiple extractions and dental caries on exam -labs including C. difficile -renal c/s to arrange HD -dispo pending 09/20/17 16:08 Labs unremarkable and C. difficile negative. Case discussed with Dr. Guthrie who states patient to come in for hemodialysis which will probably be done tomorrow. Patient admitted to Dr. Gee who is covering for patient's PMD, Dr. Hernandez *DC/Admit/Observation/Transfer Diagnosis at time of Disposition: ESRD on hemodialysis Diarrhea Qualifiers: Diarrhea type: unspecified type Qualified Code(s): R19.7 - Diarrhea, unspecified - Discharge Dispostion Condition at time of disposition: Stable Admit: Yes - Referrals Referrals: Omar Hernandez MD [Primary Care Provider] - - Patient Instructions - Post Discharge Activity
[2017-09-20 11:59] LABS: BASO % 1.5 % (0-2.0); EOS % 5.4 % (0-4.5); HEMATOCRIT 44.1 % (35.4-49); HEMOGLOBIN 13.6 GM/dL (11.7-16.9); LYMPH % 9.6 % (8-40); MCH 30.1 pg (25.7-33.7); MCHC 30.8 g/dl (32.0-35.9); MEAN PLT VOLUME 10.4 fl (7.5-11.1); MONO % 11.4 % (3.8-10.2); NEUT % 72.1 % (42.8-82.8); PLATELET COUNT 172 K/MM3 (134-434); RDW 19.6 % (11.9-15.9); WHITE BLOOD COUNT 5.6 K/mm3 (4.0-10.0)
[2017-09-20 12:45] LABS: ALBUMIN 1.8 g/dl (3.4-5.0); ANION GAP 10 (8-16); BILIRUBIN,TOTAL 0.6 mg/dL (0.2-1.0); BLOOD UREA NITROGEN 48 mg/dL (7-18); CALCIUM 7.9 mg/dL (8.5-10.1); CHLORIDE 106 mmol/L (98-107); CO2 25 mmol/L (21-32); GLUCOSE,RANDOM 79 mg/dL (74-106); SGPT/ALT 26 U/L (12-78); SODIUM 141 mmol/L (136-145); TOT PROT 5.4 g/dl (6.4-8.2)
[2017-09-20 12:49] LABS: ALK PHOS 105 U/L (45-117)
[2017-09-20 12:50] LABS: SGOT/AST 46 U/L (15-37)
[2017-09-20 13:15] LABS: CREATININE 10.1 mg/dL (0.7-1.3)
[2017-09-20 13:16] LABS: POTASSIUM 6.1 mmol/L (3.5-5.1)
[2017-09-20 14:52] LABS: ALBUMIN 1.8 g/dl (3.4-5.0); ALK PHOS 100 U/L (45-117); ANION GAP 13 (8-16); BILIRUBIN,TOTAL 0.5 mg/dL (0.2-1.0); BLOOD UREA NITROGEN 47 mg/dL (7-18); CALCIUM 8.1 mg/dL (8.5-10.1); CHLORIDE 107 mmol/L (98-107); CO2 24 mmol/L (21-32); GLUCOSE,RANDOM 75 mg/dL (74-106); POTASSIUM 5.4 mmol/L (3.5-5.1); SGOT/AST 31 U/L (15-37); SGPT/ALT 22 U/L (12-78); SODIUM 144 mmol/L (136-145); TOT PROT 5.1 g/dl (6.4-8.2)
[2017-09-20 15:02] LABS: CREATININE 10.6 mg/dL (0.7-1.3)
[2017-09-21 09:28] LABS: ANION GAP 12 (8-16); BLOOD UREA NITROGEN 52 mg/dL (7-18); CALCIUM 7.8 mg/dL (8.5-10.1); CHLORIDE 108 mmol/L (98-107); CO2 23 mmol/L (21-32); GLUCOSE,RANDOM 72 mg/dL (74-106); POTASSIUM 5.2 mmol/L (3.5-5.1); SODIUM 143 mmol/L (136-145)
[2017-09-21 09:45] LABS: CREATININE 11.1 mg/dL (0.7-1.3)
--- NOTE | 2017-09-21 10:07 | CON.NEP ---
Consult Consult Specialty:: Nephrology Referred by:: Dr. Gee Reason for Consultation:: ESRD on HD, Hyperkalemia - History of Present Illness Chief Complaint: Diarrhea History of Present Illness: 57 year old gentleman with PMhx of ESRD on HD, CHF, s/p Valve replacements, with recent admission for oral abcess discharged on Augmentin presented with diarrhea after taking the medication for 2 days and found to have missed dialysis session and mild hyperkalemia. Pt only started taking the Abx 2 day ago and has been having diarrhea. No Abd pain. No fever, chills. No N/V. Missed dialysis on Thursday because of his weakness. - History Source History Provided By: Patient Limitations to Obtaining History: No Limitations - Past Medical History Cardio/Vascular: Yes: CHF (Chronic diastolic HF, Severe Pulm HTN), HTN, Hyperlipdemia, Mitral Insufficiency (s/p MVR (bio)), Pulmonary Hypertension, Other (Severe Tricuspid regurgitation, Endocarditis s/p TVR/MVR, recurrent bacteremia) Pulmonary: Yes: Other (PHTN) Gastrointestinal: Yes: Ascites, Constipation Hepatobiliary: Yes: Hepatitis C Renal/: Yes: Renal Failure, Hemodialysis Psych: Yes: Addictions Musculoskeletal: Yes: Bursitis (left shoulder pain) - Past Surgical History Past Surgical History: Yes: AV Fistula/Graft, Hernia Repair (11/19) - Alcohol/Substance Use Hx Alcohol Use: No History of Substance Use: reports: Cocaine (last use 2 weeks ago), Marijuana - Smoking History Smoking history: Current every day smoker Have you smoked in the past 12 months: Yes Aproximately how many cigarettes per day: 3 - Social History ADL: Independent 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 History of Recent Travel: No Home Medications - Allergies Allergies/Adverse Reactions: Allergies Allergy/AdvReac Type Severity Reaction Status Date / Time Iodinated Contrast- Oral and Allergy Verified 09/20/17 11:58 IV Dye CONTRAST Allergy Hives Uncoded 09/20/17 11:58 - Home Medications Home Medications: Ambulatory Orders Folic Acid 1 mg PO DAILY 09/11/16 Sevelamer Carbonate [Renvela -] 1,600 mg PO BID 09/11/16 Albuterol Sulfate 0.042% [Ventolin 0.042% (Half-Strength) -] 1 amp NEB TID PRN 04/22/17 Cyclobenzaprine HCl [Flexeril -] 10 mg PO HS 04/22/17 Tamsulosin HCl 0.4 mg PO DAILY 07/03/17 Acetaminophen [Tylenol .Regular Strength -] 650 mg PO Q6H PRN tablet 07/20/17 Albuterol 2.5/Ipratropium 0.5 [Duoneb -] 1 amp NEB Q4H PRN amp 07/20/17 Aspirin [ASA -] 81 mg PO DAILY tab.chew 07/20/17 Calcium Acetate [Phoslo -] 667 mg PO TIDCM capsule 07/20/17 Levothyroxine [Synthroid -] 25 mcg PO DAILY@0700 tablet 07/20/17 Metoprolol Succinate [Toprol XL -] 12.5 mg PO DAILY tab.sr.24h 07/20/17 Oxycodone HCl/Acetaminophen [Percocet 5-325 mg Tablet] 1 - 2 tab PO TID PRN #10 tab MDD 6 08/30/17 Amox-Tr/K Cl [Augmentin 500-125mg Tablet -] 1 tab PO BID@0800,1730 #20 tablet Tamsulosin HCl [Flomax -] 0.4 mg PO DAILY@0830 cap.er.24h 09/11/17 Family Disease History - Family Disease History Family Disease History: Other: Father ( of kidney failure), Mother (muscle problems), Sister (healthy and living, HTN) Review of Systems - Review of Systems Constitutional: reports: Weakness Eyes: reports: No Symptoms HENT: reports: No Symptoms Cardiovascular: reports: No Symptoms Respiratory: reports: No Symptoms Gastrointestinal: reports: Diarrhea. denies: Abdominal Pain, Constipation Musculoskeletal: reports: No Symptoms Neurological: reports: No Symptoms Nephrology Consult - Height Height: 6 ft 2 in - Weight Weight: 73.482 kg - BMI Body Mass Index (BMI): 20.7 - Lab Results CBC,BMP: CBC, BMP 09/20/17 11:51 09/21/17 07:30 Anion Gap: Anion Gap Anion Gap 12 (8-16) 09/21/17 07:30 - Physical Examination Vital Signs: Vital Signs Temperature 97.8 F 09/21/17 07:05 Pulse Rate 79 09/21/17 09:10 Respiratory Rate 18 09/21/17 09:10 Blood Pressure 100/60 09/21/17 09:10 O2 Sat by Pulse Oximetry (%) 96 09/21/17 07:01 Constitutional: Yes: No Distress Eyes: Yes: Conjunctiva Clear HENT: Yes: Atraumatic, Normocephalic Neck: Yes: Supple Cardiovascular: Yes: Regular Rate and Rhythm, Murmur Respiratory: Yes: Regular, Diminished. No: Rales, Rhonchi, SOB Gastrointestinal: Yes: Normal Bowel Sounds, Soft Access for Hemodialysis: AV Fistula Edema: Yes Edema: LLE: Trace, RLE: Trace Assessment/Plan 57 year old gentleman with PMhx of ESRD on HD, CHF, s/p Valve replacements, with recent admission for oral abcess discharged on Augmentin presented with diarrhea after taking the medication for 2 days and found to have missed dialysis session and mild hyperkalemia. #ESRD on HD with mild hyperkalemia pt had dialysis this AM with low K bath expect K to be improved to WNL compliance with dialysis stressed Low K renal diet #Diarrhea with recent Abx use Cdiff negative ID consult requested to guide further Abx treatment #Oral abcess Pt grew propionibacterium acnes in blood culture, ? significance will f/u with ID #CHF/Valvular Heart disease minimal UF with Hd low salt diet, fluid restriction Thank you Abdirashid Guthrie DO
--- NOTE | 2017-09-21 11:13 | EKG ---
Test Reason : Blood Pressure : / mmHG Vent. Rate : 066 BPM Atrial Rate : 066 BPM P-R Int : 162 ms QRS Dur : 084 ms QT Int : 428 ms P-R-T Axes : 062 159 163 degrees QTc Int : 448 ms NORMAL SINUS RHYTHM RIGHT VENTRICULAR HYPERTROPHY ANTEROLATERAL INFARCT (CITED ON OR BEFORE 19-AUG-2017) ABNORMAL ECG WHEN COMPARED WITH ECG OF 19-AUG-2017 00:09, SINUS RHYTHM HAS REPLACED ATRIAL FLUTTER VENT. RATE HAS DECREASED BY 42 BPM NONSPECIFIC T WAVE ABNORMALITY, WORSE IN INFERIOR LEADS NONSPECIFIC T WAVE ABNORMALITY, WORSE IN LATERAL LEADS Confirmed by MELY SERRANO MD ([id number]) on 09/21/2017 11:13:37 AM Referred By: Confirmed By:MELY SERRANO MD
[2017-09-21 12:30] VITALS: BMI 20.5
--- NOTE | 2017-09-21 12:35 | HP ---
Admitting History and Physical - Admission History of Present Illness: Pt is a 57 y/o male w/ PMH significant for of ESRD on HD, CHF, s/p Valve replacements(TVR/MVR), Hypothyroidism, endocarditis/MRSA bacteremia, hypotension , BPH, anemia, asthma and Hep C. Pt was recently admitted for oral abcess and discharged on Augmentin and to follow up w/ dentist as outpt. However pt never did F/U w/ dentist and he it is unclear if he even was complaint w/ his antibxs regimen. It seems that he only started taking the antibx a few days ago and then developed diarrhea and missed his dialysis. - Past Medical History Cardiovascular: Yes: CHF (Chronic diastolic HF, Severe Pulm HTN), HTN, Hyperlipdemia, Mitral Insufficiency (s/p MVR (bio)), Pulmonary Hypertension, Other (Severe Tricuspid regurgitation, Endocarditis s/p TVR/MVR, recurrent bacteremia) Pulmonary: Yes: Other (PHTN) Gastrointestinal: Yes: Ascites, Constipation Hepatobiliary: Yes: Hepatitis C Renal/: Yes: Renal Failure, Hemodialysis Heme/Onc: Yes: Anemia Psych: Yes: Addictions Musculoskeletal: Yes: Bursitis (left shoulder pain) - Past Surgical History Past Surgical History: Yes: AV Fistula/Graft, Hernia Repair (11/19) Additional Past Surgical History: TVR/MVR - Smoking History Smoking history: Current every day smoker Have you smoked in the past 12 months: Yes Aproximately how many cigarettes per day: 3 - Alcohol/Substance Use Hx Alcohol Use: No History of Substance Use: reports: Cocaine (last use 2 weeks ago), Marijuana - Social History ADL: Independent 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 History of Recent Travel: No Home Medications - Allergies Allergies/Adverse Reactions: Allergies Allergy/AdvReac Type Severity Reaction Status Date / Time Iodinated Contrast- Oral and Allergy Verified 09/20/17 11:58 IV Dye CONTRAST Allergy Hives Uncoded 09/20/17 11:58 - Home Medications Home Medications: Ambulatory Orders Folic Acid 1 mg PO DAILY 09/11/16 Sevelamer Carbonate [Renvela -] 1,600 mg PO BID 09/11/16 Albuterol Sulfate 0.042% [Ventolin 0.042% (Half-Strength) -] 1 amp NEB TID PRN 04/22/17 Cyclobenzaprine HCl [Flexeril -] 10 mg PO HS 04/22/17 Tamsulosin HCl 0.4 mg PO DAILY 07/03/17 Acetaminophen [Tylenol .Regular Strength -] 650 mg PO Q6H PRN tablet 07/20/17 Albuterol 2.5/Ipratropium 0.5 [Duoneb -] 1 amp NEB Q4H PRN amp 07/20/17 Aspirin [ASA -] 81 mg PO DAILY tab.chew 07/20/17 Calcium Acetate [Phoslo -] 667 mg PO TIDCM capsule 07/20/17 Levothyroxine [Synthroid -] 25 mcg PO DAILY@0700 tablet 07/20/17 Metoprolol Succinate [Toprol XL -] 12.5 mg PO DAILY tab.sr.24h 07/20/17 Oxycodone HCl/Acetaminophen [Percocet 5-325 mg Tablet] 1 - 2 tab PO TID PRN #10 tab MDD 6 08/30/17 Amox-Tr/K Cl [Augmentin 500-125mg Tablet -] 1 tab PO BID@0800,1730 #20 tablet Tamsulosin HCl [Flomax -] 0.4 mg PO DAILY@0830 cap.er.24h 09/11/17 Family Disease History - Family Disease History Family History: Unremarkable Family Disease History: Other: Father ( of kidney failure), Mother (muscle problems), Sister (healthy and living, HTN) Review of Systems - Review of Systems Constitutional: reports: No Symptoms Eyes: reports: No Symptoms HENT: reports: No Symptoms Neck: reports: No Symptoms Cardiovascular: reports: No Symptoms Respiratory: reports: No Symptoms Gastrointestinal: reports: Diarrhea Genitourinary: reports: No Symptoms Physical Examination Vital Signs: Vital Signs Temperature 97.3 F L 09/21/17 10:48 Pulse Rate 73 09/21/17 10:48 Respiratory Rate 18 09/21/17 10:48 Blood Pressure 98/57 09/21/17 10:48 O2 Sat by Pulse Oximetry (%) 99 09/21/17 10:48 Constitutional: Yes: No Distress HENT: Yes: WNL Neck: Yes: WNL, Supple Cardiovascular: Yes: WNL, Regular Rate and Rhythm, Murmur Respiratory: Yes: WNL, Regular, CTA Bilaterally Gastrointestinal: Yes: WNL, Normal Bowel Sounds, Soft Extremities: Yes: Other ((+) AV fistula LUE (+) swelling LUE) Edema: LUE: 1+ Neurological: Yes: WNL, Alert, Oriented ...Motor Strength: WNL Labs: CBC, BMP 09/20/17 11:51 09/21/17 07:30 Problem List - Problems (1) Diarrhea Assessment/Plan: Probably due to antibx Stool studies As per ID no further need for antibxs for dental process Pt advised to see dentist as outpt Code(s): R19.7 - DIARRHEA, UNSPECIFIED Qualifiers: Diarrhea type: unspecified type Qualified Code(s): R19.7 - Diarrhea, unspecified (2) ESRD on hemodialysis Assessment/Plan: As per renal Code(s): N18.6 - END STAGE RENAL DISEASE; Z99.2 - DEPENDENCE ON RENAL DIALYSIS (3) CHF (congestive heart failure) Code(s): I50.9 - HEART FAILURE, UNSPECIFIED (4) Hypotension Code(s): I95.9 - HYPOTENSION, UNSPECIFIED (5) Hypothyroid Assessment/Plan: Cont levothyroxine Code(s): E03.9 - HYPOTHYROIDISM, UNSPECIFIED (6) Anemia in ESRD (end-stage renal disease) Code(s): N18.6 - END STAGE RENAL DISEASE; D63.1 - ANEMIA IN CHRONIC KIDNEY DISEASE (7) CHF (congestive heart failure), NYHA class II Code(s): I50.9 - HEART FAILURE, UNSPECIFIED Qualifiers: Congestive heart failure type: unspecified congestive heart failure type Qualified Code(s): I50.9 - Heart failure, unspecified
[2017-09-21] MEDS ORDERED: AMOX TR/POT CLAV 500MG/125MG TABLETS (FP) PO SCH (12:45)
[2017-09-21] MEDS ORDERED: AMOX TR/POT CLAV 500MG/125MG TABLETS (FP) PO ONE (13:45)
[2017-09-21] MEDS: SEVELAMER CARBONATE 800 MG TAB (FP) PO SCH ×2 (15:04→21:04)
[2017-09-21] MEDS: ASPIRIN 81 MG CHEWABLE TABLETS PO SCH (15:04)
[2017-09-21] MEDS: METOPROLOL SUCCINATE 25 MG TAB.SR.24H (FP) PO SCH (15:04)
--- NOTE | 2017-09-21 16:54 | PN ---
Progress Note (short form) - Note Progress Note: ID consult dictated imp/reccd 57 year old man history of MVR/TVR, esrd/hd recently hospitalized with mandibular swelling in early september he was given po augmentin for possible dental abscess and advised f/u with dentist which he didnot keep he reports swelling resolved with antibiotics in the hospital-he didnot seek dental care one week later- his pharmacy delivered the augmentin on - he took a pill on and one on Thursday and developed diarrhea nonbloody everytime he ate he missed his weekend HD due to the diarrhea patient is an extremely poor historian he currently has no facial swelling or pain he denies fevers or chills is able to eat and just ate a plate of maori fries without any pain suggest Diarrhea- ?antibiotic associated, appears to be resolving repeat blood cultures as one bottle from last admission with propionobacterium- skin contaminant? send stool studies-stool wbc and culture as dental pain and swelling have resolved can observe off antibiotics would urge dental f/u as outpt - will need dental antibiotic prophylaxis for his dental care (MV/TV repair) left pleural effusion- ?chronic- would defer to his PMD and renal volume overload/hyperkalemia- dialysis per renal Problem List - Problems (1) Diarrhea Code(s): R19.7 - DIARRHEA, UNSPECIFIED Qualifiers: Diarrhea type: unspecified type Qualified Code(s): R19.7 - Diarrhea, unspecified (2) ESRD on hemodialysis Code(s): N18.6 - END STAGE RENAL DISEASE; Z99.2 - DEPENDENCE ON RENAL DIALYSIS (3) H/O mitral valve replacement Code(s): Z98.890 - OTHER SPECIFIED POSTPROCEDURAL STATES; Z95.2 - PRESENCE OF PROSTHETIC HEART VALVE (4) H/O tricuspid valve replacement Code(s): Z95.2 - PRESENCE OF PROSTHETIC HEART VALVE
[2017-09-21] MEDS: CALCIUM ACETATE 667 MG CAPSULE (FP) PO SCH (17:43)
--- NOTE | 2017-09-21 19:59 | CONS ---
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 He was felt to have a possible dental abscess for which he was admitted. He was given antibiotics in the hospital for 3 days with resolution of his symptoms per the patient. He was discharged on oral Augmentin to follow up with a dentist. He did not follow up with the dentist. His abdominal pain had resolved. He had no further fever. Five days later, on the next , his pharmacy delivered his antibiotics to him. He states he took 1 dose of Augmentin on , 1 dose on Thursday, then developed profuse diarrhea every time he ate. His diarrhea was so severe that he was unable to go to dialysis. He was admitted on the with hyperkalemia and mild volume overload. I am asked to see him to see if his antibiotics need to be continued, to evaluate him for diarrhea. As well, on the prior admission, he had 1 of 4 positive blood cultures with propionibacterium. Patient denies any fevers and chills, any nausea, vomiting. He states he has had non-bloody diarrhea and reports that today that is improved. He just had a meal of Finnish fries which he states he enjoyed and had no trouble eating. He is a very poor historian and really does not want to speak to me or give any further details. ALLERGIES: He is allergic to CONTRAST DYE and IODINE. PAST MEDICAL HISTORY: Notable for CHF, severe pulmonary hypertension, hyperlipidemia. He is status post BioMitral valve replacement. He has severe tricuspid regurgitation and has had endocarditis with a TVR and MVR. He has a history of ascites, constipation, hepatitis C, end-stage renal disease on dialysis. He has had bursitis. He has an AV fistula, currently not working. He has a right PermCath, and he has had a hernia repair. He was recently evaluated at [facility] both for his heart as well as his back, and he was deemed to be a non-operable candidate and to have no acute disease in his back. SOCIAL HISTORY: Notable for polysubstance abuse including cocaine. He smokes. He denies any alcohol use. MEDICATIONS: At home include Flomax, Renvela, Percocet, Toprol-XL, Synthroid, folic acid, Flexeril, PhosLo. He was started on Augmentin which he only took 2 pills and DuoNebs. REVIEW OF SYSTEMS: He denies any abdominal pain, chest pain. He has had no fevers or chills, and he reports his diarrhea is resolving. PHYSICAL EXAMINATION: General: He is awake and alert. Vital Signs: Temperature is 97. Pulse is 77. Blood pressure is 118/71. Respiratory rate is 18. He is saturating 99% on 3 L. He uses oxygen at home. HEENT: He is normocephalic. His eyes are anicteric. He has no thrush. He has poor dentition. He has no swelling of his mandible. When you look inside his mouth, there is no evidence of any purulence. He has dental caries and poor dental hygiene. He has no pain on palpation of his mandible. There is no erythema or swelling noted both of the mandible or surrounding his teeth. Neck: Supple. Lungs: Clear to auscultation. Heart: Regular rate and rhythm. Skin: PermCath site is without any erythema or tenderness. Left Arm: Has an AV fistula. The arm is slightly swollen compared to the right, without any erythema. Abdomen: Soft, nontender. Extremities: Without edema. LABORATORY DATA: White count is 5.6, hemoglobin 13.6, platelets are 176. BUN is 52 and creatinine 11.1. He has 1 of 4 blood cultures from last admission with Propionibacterium acnes, and a C. difficile was done this morning and is negative. He had a chest x-ray done in the emergency room that shows a moderate left pleural effusion which is chronic. He has a new chronic left pleural effusion which appears to be new. In summary, this is a 57-year-old man with diarrhea. Question whether it is antibiotic associated, appears to be resolving. Would check stool white cells and cultures. Stool Clostridium difficile is negative. Would repeat blood cultures given the prior 1 bottle positive which I suspect is skin contaminant. As his dental pain and swelling have resolved, can observe off antibiotics. Would urge dental followup as outpatient. He will need dental antibiotic prophylaxis for his dental care given his mitral valve and tricuspid valve repair. Lastly, his pleural effusion: I am not sure if this is chronic or not. Would defer to nightly primary doctor and Renal regarding this matter. Volume overload/hyperkalemia: Dialysis per Renal. History of mitral valve and tricuspid valve repairs: Repeat blood cultures have been sent. Would continue to observe him off antibiotics. UMBERTO HUGHES M.D. [id number]
[2017-09-21] MEDS: HEPARIN NA (PORCINE) 5,000 UNITS/ML 1ML VIAL SQ SCH (21:05)
[2017-09-22] MEDS: LEVOTHYROXINE NA 25 MCG TABLET (FP) PO SCH (06:05)
[2017-09-22 07:55] LABS: BASO % 3.1 % (0-2.0); EOS % 6.1 % (0-4.5); HEMATOCRIT 40.3 % (35.4-49); HEMOGLOBIN 12.5 GM/dL (11.7-16.9); LYMPH % 7.5 % (8-40); MCH 30.8 pg (25.7-33.7); MCHC 31.1 g/dl (32.0-35.9); MEAN CELL VOLUME 99.1 fl (80-96); MEAN PLT VOLUME 10.3 fl (7.5-11.1); MONO % 10.2 % (3.8-10.2); NEUT % 73.1 % (42.8-82.8); PLATELET COUNT 143 K/MM3 (134-434); RBC 4.07 M/mm3 (4.00-5.60); WHITE BLOOD COUNT 4.3 K/mm3 (4.0-10.0)
[2017-09-22 08:11] LABS: ALBUMIN 1.7 g/dl (3.4-5.0); ANION GAP 12 (8-16); BILIRUBIN,TOTAL 0.3 mg/dL (0.2-1.0); BLOOD UREA NITROGEN 35 mg/dL (7-18); CALCIUM 8.1 mg/dL (8.5-10.1); CHLORIDE 108 mmol/L (98-107); CO2 24 mmol/L (21-32); GLUCOSE,RANDOM 68 mg/dL (74-106); SGPT/ALT 22 U/L (12-78); SODIUM 144 mmol/L (136-145); TOT PROT 4.9 g/dl (6.4-8.2)
[2017-09-22 08:17] LABS: ALK PHOS 102 U/L (45-117)
[2017-09-22 08:47] LABS: POTASSIUM 5.1 mmol/L (3.5-5.1); SGOT/AST 34 U/L (15-37)
[2017-09-22 09:00] LABS: CREATININE 8.8 mg/dL (0.7-1.3)
[2017-09-22] MEDS: TAMSULOSIN HCL 0.4 MG CAP.ER.24H (FP) PO SCH (09:10)
[2017-09-22] MEDS: CALCIUM ACETATE 667 MG CAPSULE (FP) PO SCH ×3 (09:10→17:14)
[2017-09-22] MEDS: guaiFENesin 200 MG/10 ML 10 ML UNIT-DOSE CUPS PO PRN ×2 (10:21→21:46)
[2017-09-22] MEDS: SEVELAMER CARBONATE 800 MG TAB (FP) PO SCH ×2 (10:35→21:45)
[2017-09-22] MEDS: ASPIRIN 81 MG CHEWABLE TABLETS PO SCH ×2 (10:35→15:12)
[2017-09-22] MEDS: METOPROLOL SUCCINATE 25 MG TAB.SR.24H (FP) PO SCH ×2 (10:35→15:12)
[2017-09-22] MEDS: FOLIC ACID 1 MG TABLET (FP) PO SCH ×2 (10:35→15:12)
[2017-09-22] MEDS: HEPARIN NA (PORCINE) 5,000 UNITS/ML 1ML VIAL SQ SCH ×2 (10:35→21:28)
--- NOTE | 2017-09-22 11:32 | PN ---
Progress Note (short form) - Note Progress Note: Renal follow up for ESRD on HD Pt seen and examined during dialysis BP stable, goal UF is 2L AVF with good blood flow pt without complaints no further diarrhea Vital Signs Temperature 98.2 F 09/22/17 10:25 Pulse Rate 63 09/22/17 10:30 Respiratory Rate 18 09/22/17 10:30 Blood Pressure 107/63 09/22/17 10:30 O2 Sat by Pulse Oximetry (%) 95 09/22/17 06:52 Intake & Output 09/19/17 09/20/17 09/21/17 09/22/17 23:59 23:59 23:59 23:59 Intake Total 360 Balance 360 Weight 73.482 kg 72.575 kg NAD RRR CTA no LE edema CBC, BMP 09/22/17 06:10 09/22/17 06:10 Laboratory Tests 08/14/17 09/09/17 09/22/17 05:05 18:33 06:10 Calcium 7.5 L 8.2 L 8.1 L Albumin 1.4 L D 2.0 L D 1.7 L Current Medications Albuterol/Ipratropium (Duoneb -) 1 amp NEB Q4H PRN PRN Reason: SHORTNESS OF BREATH Aspirin (Asa -) 81 mg PO DAILY [facility] Last Admin: 09/22/17 10:35 Dose: Not Given Calcium Acetate (Phoslo -) 667 mg PO TIDCM [facility] Last Admin: 09/22/17 09:10 Dose: 667 mg Folic Acid (Folic Acid -) 1 mg PO DAILY [facility] Last Admin: 09/22/17 10:35 Dose: Not Given Guaifenesin (Robitussin -) 10 ml PO Q6H PRN PRN Reason: COUGH Last Admin: 09/22/17 10:21 Dose: 10 ml Heparin Sodium (Porcine) (Heparin -) 5,000 unit SQ BID [facility] Last Admin: 09/22/17 10:35 Dose: Not Given Levothyroxine Sodium (Synthroid -) 25 mcg PO DAILY@0700 [facility] Last Admin: 09/22/17 06:05 Dose: 25 mcg Metoprolol Succinate (Toprol Xl -) 12.5 mg PO DAILY [facility] Last Admin: 09/22/17 10:35 Dose: Not Given Sevelamer Carbonate (Renvela -) 1,600 mg PO BID [facility] Last Admin: 09/22/17 10:35 Dose: Not Given Tamsulosin HCl (Flomax -) 0.4 mg PO DAILY@0830 [facility] Last Admin: 09/22/17 09:10 Dose: 0.4 mg 57 year old gentleman with PMhx of ESRD on HD, CHF, s/p Valve replacements, with recent admission for oral abcess discharged on Augmentin presented with diarrhea after taking the medication for 2 days and found to have missed dialysis session and mild hyperkalemia. #ESRD on HD with mild hyperkalemia pt tolerating dialysis well can resume dialysis as outpatient on #Diarrhea with recent Abx use Cdiff negative diarrhea appears resolved at this time #Oral abcess ID consult noted to be off antibiotics at the present time will need dental follow up as outpatient #CHF/Valvular Heart disease UF as tolerated with Hd Thank you Abdirashid Guthrie DO
[2017-09-22 14:11] LABS: HBSAG SCREEN Negative (Negative); HEP A AB, IGM Negative (Negative); HEP B CORE AB, TOT Negative (Negative)
--- NOTE | 2017-09-22 20:12 | PN ---
Progress Note, Physician History of Present Illness: Pt does not want to speak - Current Medication List Current Medications: Active Medications Albuterol/Ipratropium (Duoneb -) 1 amp NEB Q4H PRN PRN Reason: SHORTNESS OF BREATH Aspirin (Asa -) 81 mg PO DAILY [facility] Last Admin: 09/22/17 15:12 Dose: 81 mg Calcium Acetate (Phoslo -) 667 mg PO TIDCM [facility] Last Admin: 09/22/17 17:14 Dose: 667 mg Folic Acid (Folic Acid -) 1 mg PO DAILY [facility] Last Admin: 09/22/17 15:12 Dose: 1 mg Guaifenesin (Robitussin -) 10 ml PO Q6H PRN PRN Reason: COUGH Last Admin: 09/22/17 10:21 Dose: 10 ml Heparin Sodium (Porcine) (Heparin -) 5,000 unit SQ BID [facility] Last Admin: 09/22/17 10:35 Dose: Not Given Levothyroxine Sodium (Synthroid -) 25 mcg PO DAILY@0700 [facility] Last Admin: 09/22/17 06:05 Dose: 25 mcg Metoprolol Succinate (Toprol Xl -) 12.5 mg PO DAILY [facility] Last Admin: 09/22/17 15:12 Dose: 12.5 mg Sevelamer Carbonate (Renvela -) 1,600 mg PO BID [facility] Last Admin: 09/22/17 10:35 Dose: Not Given Tamsulosin HCl (Flomax -) 0.4 mg PO DAILY@0830 [facility] Last Admin: 09/22/17 09:10 Dose: 0.4 mg - Objective Vital Signs: Vital Signs Temperature 98.5 F 09/22/17 18:00 Pulse Rate 83 09/22/17 18:00 Respiratory Rate 18 09/22/17 18:00 Blood Pressure 99/53 09/22/17 18:00 O2 Sat by Pulse Oximetry (%) 95 09/22/17 15:00 HENT: Yes: WNL Neck: Yes: WNL, Supple Cardiovascular: Yes: WNL, Regular Rate and Rhythm Respiratory: Yes: WNL, Regular, CTA Bilaterally Gastrointestinal: Yes: WNL, Normal Bowel Sounds, Soft Extremities: Yes: Other ((+) AV grafts LUE) Edema: LUE: 1+ Labs: CBC, BMP 09/22/17 06:10 09/22/17 06:10 Problem List - Problems (1) ESRD on hemodialysis Assessment/Plan: As per renal Dialysis on thurs Spoke to pt about STR however he did not want to speak about it May need psych consult Code(s): N18.6 - END STAGE RENAL DISEASE; Z99.2 - DEPENDENCE ON RENAL DIALYSIS (2) Diarrhea Assessment/Plan: Probably due to antibx Stool studies are negative As per ID no further need for antibxs for dental process Pt advised to see dentist as outpt Code(s): R19.7 - DIARRHEA, UNSPECIFIED Qualifiers: Diarrhea type: unspecified type Qualified Code(s): R19.7 - Diarrhea, unspecified (3) CHF (congestive heart failure) Code(s): I50.9 - HEART FAILURE, UNSPECIFIED (4) Hypotension Code(s): I95.9 - HYPOTENSION, UNSPECIFIED (5) Hypothyroid Code(s): E03.9 - HYPOTHYROIDISM, UNSPECIFIED (6) Anemia in ESRD (end-stage renal disease) Code(s): N18.6 - END STAGE RENAL DISEASE; D63.1 - ANEMIA IN CHRONIC KIDNEY DISEASE (7) CHF (congestive heart failure), NYHA class II Code(s): I50.9 - HEART FAILURE, UNSPECIFIED Qualifiers: Congestive heart failure type: unspecified congestive heart failure type
[2017-09-22] MEDS: ACETAMINOPHEN 325 MG TABLET (FP) PO PRN (23:27)
[2017-09-23] MEDS: LEVOTHYROXINE NA 25 MCG TABLET (FP) PO SCH (06:13)
[2017-09-23] MEDS: ALBUTEROL SO4 2.5/IPRATROPIUM 0.5 INH SOL 3 ML VIAL.NEB. NEB PRN ×2 (06:42→20:55)
[2017-09-23] MEDS: CALCIUM ACETATE 667 MG CAPSULE (FP) PO SCH ×3 (08:39→19:09)
[2017-09-23] MEDS: TAMSULOSIN HCL 0.4 MG CAP.ER.24H (FP) PO SCH (08:51)
[2017-09-23] MEDS: guaiFENesin 200 MG/10 ML 10 ML UNIT-DOSE CUPS PO PRN ×2 (09:41→16:00)
[2017-09-23] MEDS: ASPIRIN 81 MG CHEWABLE TABLETS PO SCH (09:41)
[2017-09-23] MEDS: HEPARIN NA (PORCINE) 5,000 UNITS/ML 1ML VIAL SQ SCH ×3 (11:39→21:12)
[2017-09-23] MEDS: FOLIC ACID 1 MG TABLET (FP) PO SCH (11:39)
[2017-09-23] MEDS: METOPROLOL SUCCINATE 25 MG TAB.SR.24H (FP) PO SCH (11:39)
[2017-09-23] MEDS: SEVELAMER CARBONATE 800 MG TAB (FP) PO SCH ×2 (11:39→21:08)
[2017-09-23] MEDS: ACETAMINOPHEN 325 MG TABLET (FP) PO PRN ×2 (13:33→21:08)
--- NOTE | 2017-09-23 15:25 | PN ---
Progress Note (short form) - Note Progress Note: Renal follow up for ESRD on HD Pt seen and examined at the bedside has sob, RR is high CXR shows left sided effusion no chest pain s/p dialysis yesterday but fluid removal limited by low bp Vital Signs Temperature 99.6 F 09/23/17 02:00 Pulse Rate 87 09/23/17 06:00 Respiratory Rate 22 09/23/17 06:00 Blood Pressure 113/68 09/23/17 06:00 O2 Sat by Pulse Oximetry (%) 93 L 09/22/17 23:00 Intake & Output 09/20/17 09/21/17 09/22/17 09/23/17 23:59 23:59 23:59 23:59 Intake Total 360 Balance 360 Weight 73.482 kg 72.575 kg NAD RRR CTA no LE edema CBC, BMP 09/22/17 06:10 09/22/17 06:10 Current Medications Acetaminophen (Tylenol -) 650 mg PO Q6H PRN PRN Reason: FEVER Last Admin: 09/23/17 13:33 Dose: 650 mg Albuterol/Ipratropium (Duoneb -) 1 amp NEB Q4H PRN PRN Reason: SHORTNESS OF BREATH Last Admin: 09/23/17 06:42 Dose: 1 amp Aspirin (Asa -) 81 mg PO DAILY [facility] Last Admin: 09/23/17 09:41 Dose: 81 mg Calcium Acetate (Phoslo -) 667 mg PO TIDCM [facility] Last Admin: 09/23/17 12:38 Dose: Not Given Folic Acid (Folic Acid -) 1 mg PO DAILY [facility] Last Admin: 09/23/17 11:39 Dose: Not Given Guaifenesin (Robitussin -) 10 ml PO Q6H PRN PRN Reason: COUGH Last Admin: 09/23/17 09:41 Dose: 10 ml Heparin Sodium (Porcine) (Heparin -) 5,000 unit SQ BID [facility] Last Admin: 09/23/17 11:39 Dose: Not Given Levothyroxine Sodium (Synthroid -) 25 mcg PO DAILY@0700 [facility] Last Admin: 09/23/17 06:13 Dose: 25 mcg Metoprolol Succinate (Toprol Xl -) 12.5 mg PO DAILY [facility] Last Admin: 09/23/17 11:39 Dose: Not Given Sevelamer Carbonate (Renvela -) 1,600 mg PO BID [facility] Last Admin: 09/23/17 11:39 Dose: Not Given Tamsulosin HCl (Flomax -) 0.4 mg PO DAILY@0830 [facility] Last Admin: 09/23/17 08:51 Dose: 0.4 mg 57 year old gentleman with PMhx of ESRD on HD, CHF, s/p Valve replacements, with recent admission for oral abcess discharged on Augmentin presented with diarrhea after taking the medication for 2 days and found to have missed dialysis session and mild hyperkalemia. #ESRD on HD with mild hyperkalemia for isolated UF today b/c of symptomatic effusion for regular dialysis tomorrow #SOB/Pleural effusion UF as tolerated for thoracentesis tomorrow per pulmonary #Diarrhea with recent Abx use Cdiff negative diarrhea appears resolved at this time #Oral abcess ID consult noted to be off antibiotics at the present time will need dental follow up as outpatient #CHF/Valvular Heart disease UF as tolerated with Hd Thank you Abdirashid Guthrie DO
--- NOTE | 2017-09-23 15:31 | PN ---
Progress Note (short form) - Note Progress Note: PULMONARY CONSULTATION DICTATED 09/23/17 IMP DYSPNEA CHF ESRD LEFT PLEURAL EFFUSION TRANSUDATE PULMONARY HTN COPD S/P TV+ MV REPLACEMENT SECONDARY TO ENDOCARDITIS HEP C HLD NIDDM PLAN HD PER RENAL INHALED BRONCHODILATORS O2 DIAGNOSTIC AND THERAPEUTIC THORACENTESIS F/U CHEST X-RAYS DR HELLER Problem List - Problems (1) Pulmonary HTN Code(s): I27.20 - PULMONARY HYPERTENSION, UNSPECIFIED (2) Diarrhea Code(s): R19.7 - DIARRHEA, UNSPECIFIED Qualifiers: Diarrhea type: unspecified type Qualified Code(s): R19.7 - Diarrhea, unspecified (3) ESRD on hemodialysis Code(s): N18.6 - END STAGE RENAL DISEASE; Z99.2 - DEPENDENCE ON RENAL DIALYSIS (4) Anemia in CKD (chronic kidney disease) Code(s): N18.9 - CHRONIC KIDNEY DISEASE, UNSPECIFIED; D63.1 - ANEMIA IN CHRONIC KIDNEY DISEASE (5) CHF (congestive heart failure) Code(s): I50.9 - HEART FAILURE, UNSPECIFIED (6) COPD (chronic obstructive pulmonary disease) Code(s): J44.9 - CHRONIC OBSTRUCTIVE PULMONARY DISEASE, UNSPECIFIED (7) Dyspnea Code(s): R06.00 - DYSPNEA, UNSPECIFIED (8) H/O heart valve replacement with bioprosthetic valve Code(s): Z95.3 - PRESENCE OF XENOGENIC HEART VALVE (9) H/O mitral valve repair Code(s): Z98.890 - OTHER SPECIFIED POSTPROCEDURAL STATES (11) Pleural effusion Code(s): J90 - PLEURAL EFFUSION, NOT ELSEWHERE CLASSIFIED
--- NOTE | 2017-09-23 15:33 | PN ---
Physical Exam: Resume care at request of patient. Dr. Gee aware. SUBJECTIVE: Patient seen and examined. He is upset he has been coughing all night and feels his doctor doesn't not care. OBJECTIVE: Vital Signs Period Temp Pulse Resp BP Sys/Anderson Pulse Ox Last 24 Hr 98.5 F-99.6 F 83-91 18-22 93-113/49-68 93 PE Gen: weak appearing Neuro: alert, awake, cn 2-12intact Pulm: diminished, + crackles, + cough + NC CV: s1 s2 rrr Abd: s nt nd + bs Ext: +1 pitting edema b/l Active Medications Generic Name Dose Route Start Last Admin Trade Name Freq PRN Reason Stop Dose Admin Acetaminophen 650 mg 09/22/17 21:00 09/23/17 13:33 Tylenol - PO 650 mg Q6H PRN Administration FEVER Albuterol/Ipratropium 1 amp 09/21/17 12:31 09/23/17 06:42 Duoneb - NEB 1 amp Q4H PRN Administration SHORTNESS OF BREATH Aspirin 81 mg 09/21/17 12:45 09/23/17 09:41 Asa - PO 81 mg DAILY [facility] Administration Calcium Acetate 667 mg 09/21/17 17:30 09/23/17 12:38 Phoslo - PO Not Given TIDCM [facility] Folic Acid 1 mg 09/22/17 10:00 09/23/17 11:39 Folic Acid - PO Not Given DAILY [facility] Guaifenesin 10 ml 09/22/17 09:32 09/23/17 09:41 Robitussin - PO 10 ml Q6H PRN Administration COUGH Heparin Sodium (Porcine) 5,000 unit 09/21/17 22:00 09/23/17 11:39 Heparin - SQ Not Given BID [facility] Levothyroxine Sodium 25 mcg 09/22/17 07:00 09/23/17 06:13 Synthroid - PO 25 mcg DAILY@0700 [facility] Administration Metoprolol Succinate 12.5 mg 09/21/17 12:45 09/23/17 11:39 Toprol Xl - PO Not Given DAILY [facility] Sevelamer Carbonate 1,600 mg 09/21/17 12:45 09/23/17 11:39 Renvela - PO Not Given BID [facility] Tamsulosin HCl 0.4 mg 09/22/17 08:30 09/23/17 08:51 Flomax - PO 0.4 mg DAILY@0830 [facility] Administration Assessment: 57 year old male with PMhx of ESRD on HD (TTS at [facility]), CHF, Hypertension, MV/TV repair, MRSA endocarditis s/p Bio AVR/MVR [address] [facility], polysubstance abuse, recently discharged with augmentin for oral abscess, admitted with diarrhea and missed HD and hyperkalemia, now seen with increased sob and weakness. Plan: 1. Acute SOB - Pleural effusion increased on right - For diagnostic/therapeutic tap tomorrow - Will get HD after tap - D/w pulm/renal 2. ESRD on HD with SOB/Volume overload - For UF HD session today - Give midodrine 10mg x1 before HD 3. Acute on chronic diastolic CHF - Toprol xl 12.5 mg - ASA daily - Cardiology consulted 4. Hypothyroidism - Synthroid 25mcg Visit type - Emergency Visit Emergency Visit: Yes ED Registration Date: 09/21/17 Care time: The patient presented to the Emergency Department on the above date and was hospitalized for further evaluation of their emergent condition. - New Patient This patient is new to me today: Yes Date on this admission: 09/23/17 - Critical Care Critical Care patient: No - Discharge Referral Referred to [facility] Med P.C.: No
[2017-09-23] MEDS ORDERED: MIDODRINE HCL 5 MG TABLET PO ONE (15:45)
--- NOTE | 2017-09-23 17:03 | CONS ---
PULMONARY CONSULTATION DATE OF CONSULTATION: 09/23/2017 REFERRING PHYSICIAN: Vonda Moody NP HISTORY OF PRESENT ILLNESS: The patient is a 57-year-old black male known to me from previous hospitalizations with a history of end-stage renal disease on hemodialysis 3 times weekly, type 2 diabetes mellitus, COPD, asthma, history of pulmonary hypertension, pleural effusion, transudate by Light's criteria, hyperlipidemia, hypertension, anemia, ASHD, chronic systolic and diastolic heart failure, endocarditis, status post mitral valve and tricuspid valve replacement, ascites, hepatitis C, admitted to [facility] with complaints of increasing shortness of breath as well as nonbloody diarrhea. The patient was admitted. On admission he was evaluated by Dr. Cotton from Infectious Disease. Stool C difficile was negative. Of note is patient today started developing increasing shortness of breath, dyspnea on exertion, and cough productive of green sputum. Chest x-ray was performed which revealed increasing left pleural effusion. Of note is his pleural effusion was increased from previous hospitalization The patient underwent thoracentesis of his effusion August which was negative for any malignancy, having met Light's criteria for a transudate. 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 REVIEW OF SYSTEMS: Positive for orthopnea, positive for dyspnea, positive for cough, positive for generalized weakness. No hemoptysis. CURRENT MEDICATIONS: Include Flomax, Tylenol, heparin, DuoNeb, Toprol, Robitussin, aspirin, PhosLo with Renvela, Synthroid, folic acid. PHYSICAL EXAMINATION: General: The patient is a chronically ill-appearing black male appearing well-developed, awake, alert, in no acute respiratory distress. Vital Signs: Temperature is 99.6. Blood pressure is 113/68. Respiratory rate 22. O2 saturation is 94% on 3 L. HEENT: Normocephalic, atraumatic. Neck: Supple. Heart: Regular, S1, S2. Chest: Diminished breath sounds on the left one-half of the left lung field. Abdomen: Soft. Bowel sounds positive. Extremities: No cyanosis, edema. LABORATORY: WBC is 4.3, hemoglobin 12.5, hematocrit 40.3, platelet count 143, 000. Chemistries: BUN 35, creatinine 8.8. Chest x-ray: Increasing left pleural effusion. IMPRESSION: 1. Dyspnea secondary to congestive heart failure with fluid overload. 2. Left pleural effusion, likely secondary to chronic transudate. 3. History of endocarditis status post tricuspid and mitral valve replacements. 4. End-stage renal disease on hemodialysis. 5. Chronic obstructive pulmonary disease. 6. Pulmonary hypertension. PLAN: Hemodialysis as per Renal. Antibiotics as per Infectious Disease. Will arrange for thoracentesis in the a.m. Supplemental O2. Inhaled bronchodilators. KEN HELLER M.D. [id number] MTDD
--- NOTE | 2017-09-23 18:04 | CON.PSY ---
Psychiatry Consult Chief Complaint: 57 year old Male with severe ESRD, on Dialysis and other Chronic Medical conditions. Patient seen for Psych eval. Patient apparantly wantyed to le3ave the Hospital. patient denies any psych problems but rep[orts getting frustrated with having to do these chronic medical procedures. Denies any suicidal ideas or plans. Symptoms: reports: Oppositionalism - Previous Psychiatric Treatment Outpatient: None Inpatient: None - Previous Substance Abuse Treatment Outpatient: None Inpatient: None - Current Medications Current Medications: Active Medications Acetaminophen (Tylenol -) 650 mg PO Q6H PRN PRN Reason: FEVER Last Admin: 09/23/17 13:33 Dose: 650 mg Albuterol/Ipratropium (Duoneb -) 1 amp NEB Q4H PRN PRN Reason: SHORTNESS OF BREATH Last Admin: 09/23/17 06:42 Dose: 1 amp Aspirin (Asa -) 81 mg PO DAILY [facility] Last Admin: 09/23/17 09:41 Dose: 81 mg Calcium Acetate (Phoslo -) 667 mg PO TIDCM [facility] Last Admin: 09/23/17 12:38 Dose: Not Given Folic Acid (Folic Acid -) 1 mg PO DAILY [facility] Last Admin: 09/23/17 11:39 Dose: Not Given Guaifenesin (Robitussin -) 10 ml PO Q6H PRN PRN Reason: COUGH Last Admin: 09/23/17 16:00 Dose: 10 ml Heparin Sodium (Porcine) (Heparin -) 5,000 unit SQ BID [facility] Last Admin: 09/23/17 11:39 Dose: Not Given Levothyroxine Sodium (Synthroid -) 25 mcg PO DAILY@0700 [facility] Last Admin: 09/23/17 06:13 Dose: 25 mcg Metoprolol Succinate (Toprol Xl -) 12.5 mg PO DAILY [facility] Last Admin: 09/23/17 11:39 Dose: Not Given Sevelamer Carbonate (Renvela -) 1,600 mg PO BID [facility] Last Admin: 09/23/17 11:39 Dose: Not Given Tamsulosin HCl (Flomax -) 0.4 mg PO DAILY@0830 [facility] Last Admin: 09/23/17 08:51 Dose: 0.4 mg - Allergies Allergies: Allergies Allergy/AdvReac Type Severity Reaction Status Date / Time Iodinated Contrast- Oral and Allergy Verified 09/20/17 11:58 IV Dye CONTRAST Allergy Hives Uncoded 09/20/17 11:58 - Current Living Status Usual Living Arrangement: With Significant Other - Current Mental Status Evaluation Appearance: Disheveled Attitude: Guarded - Affect Affect: Constrictive Appropriateness: Appropriate to Content - Mood Mood: Irritable - Speech/Language Expressive: Coherent - Psychomotor Activity Psychomotor Activity: Slowed - Thought Process Thought Process: Intact - Thought Content Hallucinations: Absent Delusions: Absent - Cognition Attention: Alert Orientation: Time Memory, Immediate Recall: Intact Memory, Short Term: 2/3 Memory, Remote with Promptin/3 - Concentration Serial Sevens Intact: No Simple Calculations Intact: No - Abstraction Proverb Interpretation: Intact Judgement: Minimally Impaired - Insight Insight: Intact - Impulse Control Impulse Control: Minimally Impaired - Suicidal Ideation Suicidal Ideation: No - Homicidal Ideation Homicidal Ideation: No Assessment/Plan 1) Patient essentially has mental capacity to make decisions at this poiunt. 2) patient should not be allowed to leave if his condition is grave and he may if leaves now. 3) Call Cassie Fountain for Psychotherapy eval to help patient with some coping skills.
[2017-09-23] MEDS: CYCLOBENZAPRINE HCL 10 MG TABLET (FP) PO SCH (21:07)
[2017-09-23] MEDS: oxyCODONE HCL 5 MG TABLET PO PRN (21:08)
[2017-09-24] MEDS: guaiFENesin 200 MG/10 ML 10 ML UNIT-DOSE CUPS PO PRN ×3 (03:11→21:43)
[2017-09-24] MEDS: LEVOTHYROXINE NA 25 MCG TABLET (FP) PO SCH (06:05)
[2017-09-24] MEDS: TAMSULOSIN HCL 0.4 MG CAP.ER.24H (FP) PO SCH (08:34)
[2017-09-24] MEDS: CALCIUM ACETATE 667 MG CAPSULE (FP) PO SCH ×3 (08:34→17:56)
[2017-09-24] MEDS: oxyCODONE HCL 5 MG TABLET PO PRN ×2 (08:47→21:43)
[2017-09-24] MEDS: ACETAMINOPHEN 325 MG TABLET (FP) PO PRN (08:48)
[2017-09-24] MEDS: METOPROLOL SUCCINATE 25 MG TAB.SR.24H (FP) PO SCH (09:22)
[2017-09-24] MEDS: FOLIC ACID 1 MG TABLET (FP) PO SCH (09:23)
[2017-09-24] MEDS: CYCLOBENZAPRINE HCL 10 MG TABLET (FP) PO SCH ×2 (09:23→21:43)
[2017-09-24 10:50] LABS: INR 1.26 (0.82-1.09); PROTHROMBIN TIME (PATIENT) 14.2 SEC (9.98-11.88)
--- NOTE | 2017-09-24 10:59 | PN ---
Progress Note, Physician History of Present Illness: seen and examined today. sitting in chair. recent admission for dental abscess, now admitted with diarhea believed to be due to Abx used to treat dental abscess. noted to have recurrent pleural effusions. - Current Medication List Current Medications: Active Medications Acetaminophen (Tylenol -) 650 mg PO Q6H PRN PRN Reason: FEVER Last Admin: 09/24/17 08:48 Dose: 650 mg Albuterol/Ipratropium (Duoneb -) 1 amp NEB Q4H PRN PRN Reason: SHORTNESS OF BREATH Last Admin: 09/23/17 20:55 Dose: 1 amp Aspirin (Asa -) 81 mg PO DAILY [facility] Last Admin: 09/23/17 09:41 Dose: 81 mg Calcium Acetate (Phoslo -) 667 mg PO TIDCM [facility] Last Admin: 09/24/17 08:34 Dose: 667 mg Cyclobenzaprine HCl (Flexeril -) 10 mg PO BID [facility] Last Admin: 09/24/17 09:23 Dose: 10 mg Folic Acid (Folic Acid -) 1 mg PO DAILY [facility] Last Admin: 09/24/17 09:23 Dose: 1 mg Guaifenesin (Robitussin -) 10 ml PO Q6H PRN PRN Reason: COUGH Last Admin: 09/24/17 09:23 Dose: 10 ml Heparin Sodium (Porcine) (Heparin -) 5,000 unit SQ BID [facility] Last Admin: 09/23/17 21:12 Dose: Not Given Levothyroxine Sodium (Synthroid -) 25 mcg PO DAILY@0700 [facility] Last Admin: 09/24/17 06:05 Dose: 25 mcg Metoprolol Succinate (Toprol Xl -) 12.5 mg PO DAILY [facility] Last Admin: 09/24/17 09:22 Dose: 12.5 mg Oxycodone HCl (Roxicodone -) 5 mg PO Q4H PRN PRN Reason: PAIN LEVEL 6-10 Last Admin: 09/24/17 08:47 Dose: 5 mg Sevelamer Carbonate (Renvela -) 1,600 mg PO BID [facility] Last Admin: 09/23/17 21:08 Dose: 1,600 mg Tamsulosin HCl (Flomax -) 0.4 mg PO DAILY@0830 [facility] Last Admin: 09/24/17 08:34 Dose: 0.4 mg - Objective Vital Signs: Vital Signs Temperature 99.7 F H 09/24/17 08:45 Pulse Rate 84 09/24/17 08:45 Respiratory Rate 22 09/24/17 08:45 Blood Pressure 126/54 09/24/17 08:45 O2 Sat by Pulse Oximetry (%) 91 L 09/23/17 23:00 Constitutional: Yes: No Distress, Calm Eyes: Yes: Conjunctiva Clear, EOM Intact HENT: Yes: Atraumatic, Normocephalic Neck: Yes: Supple, Trachea Midline Cardiovascular: Yes: Regular Rate and Rhythm, Murmur, S1, S2. No: Bradycardia, Tachycardia, Pulse Irregular, Bruit, JVD, Gallop, Rub, S3, S4, Varicosities Respiratory: Yes: Regular, Diminished, On Nasal O2, Rales, SOB. No: Rhonchi, Wheezes Gastrointestinal: Yes: Normal Bowel Sounds, Soft. No: Distention, Tenderness Extremities: Yes: WNL Edema: LLE: Trace, RLE: Trace Peripheral Pulses WNL: Yes Neurological: Yes: Alert, Oriented Psychiatric: Yes: Alert, Oriented Labs: CBC, BMP 09/22/17 06:10 09/22/17 06:10 - ....Imaging Chest X-ray: Report Reviewed, Image Reviewed EKG: Report Reviewed, Image Reviewed Other: Report Reviewed, Image Reviewed Assessment/Plan IMP: SOB, Pleural effusions ASD PAF NSVT REC: 1. SOB-Recurrent Pleural effusions -planned for thoracentesis -volume removal with HD as tolerates 2. ASD: -s/p MVR/TVR due to trans-septal puncture -Evaluated at [facility] for closure after occular TIA, deemed not a candidate for closure (Dr. [place] and Dr. Mc): ongoing cocaine use, poor compliance and concomitant valve dz -if ASA needs to be held for thoracentesis it can be held with plan to resume ASA after procedures -no sig change on recent echo 3. PAF:NSR currently -Cont Toprol, not candidate for full AC due to poor compliance, drug use -HR control -resume ASA after procedures 4. NSVT:during prior admissions -h/o non-obs CAD and normal LV systolic function -cont Toprol -Keep K and Mg wnl
--- NOTE | 2017-09-24 12:11 | PN ---
Progress Note (short form) - Note Progress Note: Feels about the same. Dry cough. No CP. Intake & Output 09/21/17 09/22/17 09/23/17 09/24/17 23:59 23:59 23:59 23:59 Intake Total 360 Balance 360 Weight 160 lb 154 lb 3.2 oz Last Vital Signs Temp Pulse Resp BP Pulse Ox 99.7 F H 84 22 126/54 91 L 09/24/17 08:45 09/24/17 08:45 09/24/17 08:45 09/24/17 08:45 09/23/17 23:00 Active Medications Acetaminophen (Tylenol -) 650 mg PO Q6H PRN PRN Reason: FEVER Last Admin: 09/24/17 08:48 Dose: 650 mg Albuterol/Ipratropium (Duoneb -) 1 amp NEB Q4H PRN PRN Reason: SHORTNESS OF BREATH Last Admin: 09/23/17 20:55 Dose: 1 amp Aspirin (Asa -) 81 mg PO DAILY [facility] Last Admin: 09/23/17 09:41 Dose: 81 mg Calcium Acetate (Phoslo -) 667 mg PO TIDCM [facility] Last Admin: 09/24/17 08:34 Dose: 667 mg Cyclobenzaprine HCl (Flexeril -) 10 mg PO BID [facility] Last Admin: 09/24/17 09:23 Dose: 10 mg Folic Acid (Folic Acid -) 1 mg PO DAILY [facility] Last Admin: 09/24/17 09:23 Dose: 1 mg Guaifenesin (Robitussin -) 10 ml PO Q6H PRN PRN Reason: COUGH Last Admin: 09/24/17 09:23 Dose: 10 ml Heparin Sodium (Porcine) (Heparin -) 5,000 unit SQ BID [facility] Last Admin: 09/23/17 21:12 Dose: Not Given Levothyroxine Sodium (Synthroid -) 25 mcg PO DAILY@0700 [facility] Last Admin: 09/24/17 06:05 Dose: 25 mcg Metoprolol Succinate (Toprol Xl -) 12.5 mg PO DAILY [facility] Last Admin: 09/24/17 09:22 Dose: 12.5 mg Oxycodone HCl (Roxicodone -) 5 mg PO Q4H PRN PRN Reason: PAIN LEVEL 6-10 Last Admin: 09/24/17 08:47 Dose: 5 mg Tamsulosin HCl (Flomax -) 0.4 mg PO DAILY@0830 [facility] Last Admin: 09/24/17 08:34 Dose: 0.4 mg Constitutional: Yes: No Distress Eyes: Yes: Conjunctiva Clear, EOM Intact HENT: Yes: Atraumatic, Normocephalic Neck: Yes: Supple, Trachea Midline Cardiovascular: Yes: Regular Rate and Rhythm, Murmur, S1, S2. No: Bradycardia, Tachycardia, Pulse Irregular, Bruit, JVD, Gallop, Rub, S3, S4, Varicosities Respiratory: Yes: Regular, Diminished, On Nasal O2, Rales, SOB. No: Rhonchi, Wheezes Gastrointestinal: Yes: Normal Bowel Sounds, Soft. No: Distention, Tenderness Extremities: Yes: WNL Edema: LLE: Trace, RLE: Trace Peripheral Pulses WNL: Yes Neurological: Yes: Alert, Oriented Psychiatric: Yes: Alert, Oriented Labs: Laboratory Results - last 24 hr 09/24/17 10:00 PT with INR 14.20 H INR 1.26 H Problem List - Problems (1) Pulmonary HTN Code(s): I27.20 - PULMONARY HYPERTENSION, UNSPECIFIED (2) Diarrhea Code(s): R19.7 - DIARRHEA, UNSPECIFIED Qualifiers: Diarrhea type: unspecified type Qualified Code(s): R19.7 - Diarrhea, unspecified (3) ESRD on hemodialysis Code(s): N18.6 - END STAGE RENAL DISEASE; Z99.2 - DEPENDENCE ON RENAL DIALYSIS (4) Anemia in CKD (chronic kidney disease) Code(s): N18.9 - CHRONIC KIDNEY DISEASE, UNSPECIFIED; D63.1 - ANEMIA IN CHRONIC KIDNEY DISEASE (5) CHF (congestive heart failure) Code(s): I50.9 - HEART FAILURE, UNSPECIFIED (6) COPD (chronic obstructive pulmonary disease) Code(s): J44.9 - CHRONIC OBSTRUCTIVE PULMONARY DISEASE, UNSPECIFIED (7) Dyspnea Code(s): R06.00 - DYSPNEA, UNSPECIFIED (8) H/O heart valve replacement with bioprosthetic valve Code(s): Z95.3 - PRESENCE OF XENOGENIC HEART VALVE (9) H/O mitral valve repair Code(s): Z98.890 - OTHER SPECIFIED POSTPROCEDURAL STATES (11) Pleural effusion Code(s): J90 - PLEURAL EFFUSION, NOT ELSEWHERE CLASSIFIED IMP DYSPNEA CHF ESRD LEFT PLEURAL EFFUSION TRANSUDATE PULMONARY HTN COPD S/P TV+ MV REPLACEMENT SECONDARY TO ENDOCARDITIS HEP C HLD NIDDM PLAN HD PER RENAL INHALED BRONCHODILATORS O2 HAS BEEN SCHEDULED FOR DIAGNOSTIC AND THERAPEUTIC THORACENTESIS DR POWELL
[2017-09-24] MEDS: HEPARIN NA (PORCINE) 5,000 UNITS/ML 1ML VIAL SQ SCH ×2 (12:19→21:46)
[2017-09-24] MEDS: SEVELAMER CARBONATE 800 MG TAB (FP) PO SCH (12:22)
[2017-09-24] MEDS ORDERED: EPOETIN ALFA 2,000 UNIT/1 ML VIAL IVPUSH ONE (13:09)
[2017-09-24 13:25] LABS: HEMATOCRIT 37.3 % (35.4-49); HEMOGLOBIN 11.6 GM/dL (11.7-16.9); MCH 30.7 pg (25.7-33.7); MCHC 31.2 g/dl (32.0-35.9); MEAN CELL VOLUME 98.4 fl (80-96); PLATELET COUNT 114 K/MM3 (134-434); RBC 3.79 M/mm3 (4.00-5.60); RDW 19.2 % (11.9-15.9); WHITE BLOOD COUNT 3.9 K/mm3 (4.0-10.0)
[2017-09-24 13:38] LABS: ANION GAP 11 (8-16); BLOOD UREA NITROGEN 37 mg/dL (7-18); CALCIUM 7.7 mg/dL (8.5-10.1); CHLORIDE 101 mmol/L (98-107); CO2 27 mmol/L (21-32); GLUCOSE,RANDOM 104 mg/dL (74-106); PHOSPHOROUS 7.1 mg/dL (2.5-4.9); SODIUM 139 mmol/L (136-145)
[2017-09-24 13:49] LABS: CREATININE 9.1 mg/dL (0.7-1.3); POTASSIUM 6.1 mmol/L (3.5-5.1)
[2017-09-24] MEDS ORDERED: MIDODRINE HCL 5 MG TABLET PO ONE (14:00)
[2017-09-24 15:10] LABS: PLEURAL FLUID APPEARANCE CLEAR; PLEURAL FLUID COLOR COLORLESS; PLEURAL FLUID RBC 181 /mm3
[2017-09-24 15:14] LABS: GLUCOSE,PLEURAL FLUID 100.096; TOTAL PROTEIN,PLEURAL FLUID 0.576
--- NOTE | 2017-09-24 15:49 | PN ---
Progress Note (short form) - Note Progress Note: Renal follow up for ESRD on HD Pt seen and examined at the bedside s/p thoracentesis with 1.6L fluid removed pt still coughing but sob improved no chest pain for dialysis today Vital Signs Temperature 98.2 F 09/24/17 15:36 Pulse Rate 57 L 09/24/17 15:40 Respiratory Rate 09/24/17 15:40 Blood Pressure 93/44 09/24/17 15:40 O2 Sat by Pulse Oximetry (%) 93 L 09/24/17 09:00 Intake & Output 09/21/17 09/22/17 09/23/17 09/24/17 23:59 23:59 23:59 23:59 Intake Total 360 Balance 360 Weight 72.575 kg 69.944 kg NAD coughing RRR trace LE edmea CBC, BMP 09/24/17 10:00 09/24/17 10:00 Laboratory Tests 09/24/17 10:00 Calcium 7.7 L Phosphorus 7.1 H D Current Medications Acetaminophen (Tylenol -) 650 mg PO Q6H PRN PRN Reason: FEVER Last Admin: 09/24/17 08:48 Dose: 650 mg Albuterol/Ipratropium (Duoneb -) 1 amp NEB Q4H PRN PRN Reason: SHORTNESS OF BREATH Last Admin: 09/23/17 20:55 Dose: 1 amp Aspirin (Asa -) 81 mg PO DAILY [facility] Last Admin: 09/23/17 09:41 Dose: 81 mg Calcium Acetate (Phoslo -) 667 mg PO TIDCM [facility] Last Admin: 09/24/17 13:53 Dose: 667 mg Cyclobenzaprine HCl (Flexeril -) 10 mg PO BID [facility] Last Admin: 09/24/17 09:23 Dose: 10 mg Folic Acid (Folic Acid -) 1 mg PO DAILY [facility] Last Admin: 09/24/17 09:23 Dose: 1 mg Guaifenesin (Robitussin -) 10 ml PO Q6H PRN PRN Reason: COUGH Last Admin: 09/24/17 09:23 Dose: 10 ml Heparin Sodium (Porcine) (Heparin -) 5,000 unit SQ BID [facility] Last Admin: 09/24/17 12:19 Dose: Not Given Levothyroxine Sodium (Synthroid -) 25 mcg PO DAILY@0700 [facility] Last Admin: 09/24/17 06:05 Dose: 25 mcg Metoprolol Succinate (Toprol Xl -) 12.5 mg PO DAILY [facility] Last Admin: 09/24/17 09:22 Dose: 12.5 mg Oxycodone HCl (Roxicodone -) 5 mg PO Q4H PRN PRN Reason: PAIN LEVEL 6-10 Last Admin: 09/24/17 08:47 Dose: 5 mg Tamsulosin HCl (Flomax -) 0.4 mg PO DAILY@0830 [facility] Last Admin: 09/24/17 08:34 Dose: 0.4 mg 57 year old gentleman with PMhx of ESRD on HD, CHF, s/p Valve replacements, with recent admission for oral abcess discharged on Augmentin presented with diarrhea after taking the medication for 2 days and found to have missed dialysis session and mild hyperkalemia. #ESRD on HD with mild hyperkalemia s/p isolated UF yesterday for HD today with 2k bath Goal UF 1.5-2L if tolerated will use midodirne prior to dialysis #SOB/Pleural effusion s/p large volume thoracentesis Pulmonary following #Diarrhea with recent Abx use resolved #Oral abcess ID consult noted to be off antibiotics at the present time will need dental follow up as outpatient #CHF/Valvular Heart disease UF as tolerated with Hd Thank you Abdirashid Guthrie DO
--- NOTE | 2017-09-24 16:49 | PN ---
Physical Exam: SUBJECTIVE: Patient seen and examined. having symptoms of shortnes of breath at rest, on oxygen 2-3 liters OBJECTIVE: for a thoracentesis today and then dialysis Vital Signs Period Temp Pulse Resp BP Sys/Anderson Pulse Ox Last 24 Hr 98.2 F-99.7 F 57-103 18-22 78-126/32-93 91-93 GENERAL: The patient is awake, alert, and fully oriented, in moderate respiratory distress. HEAD: Normal with no signs of trauma. EYES: PERRL, extraocular movements intact, sclera anicteric, conjunctiva clear. No ptosis. ENT: Ears normal, nares patent, oropharynx clear without exudates, moist mucous membranes. NECK: Trachea midline, full range of motion, supple. LUNGS: diminished bilaterally Left > right HEART: Regular rate and rhythm ABDOMEN: Soft, nontender, nondistended, normoactive bowel sounds, no guarding PSYCH: Normal mood, normal affect. SKIN: Warm, dry, normal turgor, no rashes or lesions noted Laboratory Results - last 24 hr 09/24/17 09/24/17 09/24/17 10:00 10:00 10:00 WBC 3.9 L RBC 3.79 L Hgb 11.6 L Hct 37.3 MCV 98.4 H MCH 30.7 MCHC 31.2 L RDW 19.2 H Plt Count 114 L D MPV 10.0 PT with INR 14.20 H INR 1.26 H Sodium 139 Potassium 6.1 H* Chloride 101 Carbon Dioxide 27 Anion Gap 11 BUN 37 H Creatinine 9.1 H* Random Glucose 104 D Calcium 7.7 L Phosphorus 7.1 H D Pleural Fluid Source Pleural Color Pleural Appearance Pleural WBC Pleural RBC Pleural Chloride Pleural Total Protein Pleural Albumin Pleural LDH Pleural Glucose Pleural Amylase Pleural Cholesterol Pleural Triglycerides 09/24/17 13:57 WBC RBC Hgb Hct MCV MCH MCHC RDW Plt Count MPV PT with INR INR Sodium Potassium Chloride Carbon Dioxide Anion Gap BUN Creatinine Random Glucose Calcium Phosphorus Pleural Fluid Source Pleural Pleural Color Colorless Pleural Appearance Clear Pleural WBC 38 Pleural RBC 181 Pleural Chloride TNP Pleural Total Protein 0.576 Pleural Albumin 0 Pleural LDH 78.6 Pleural Glucose 100.096 Pleural Amylase 40.220 Pleural Cholesterol < 50 Pleural Triglycerides 16 Active Medications Generic Name Dose Route Start Last Admin Trade Name Freq PRN Reason Stop Dose Admin Acetaminophen 650 mg 09/22/17 21:00 09/24/17 08:48 Tylenol - PO 650 mg Q6H PRN Administration FEVER Albuterol/Ipratropium 1 amp 09/21/17 12:31 09/23/17 20:55 Duoneb - NEB 1 amp Q4H PRN Administration SHORTNESS OF BREATH Aspirin 81 mg 09/25/17 12:45 Asa - PO DAILY [facility] Calcium Acetate 667 mg 09/21/17 17:30 09/24/17 13:53 Phoslo - PO 667 mg TIDCM [facility] Administration Cyclobenzaprine HCl 10 mg 09/23/17 22:00 09/24/17 09:23 Flexeril - PO 10 mg BID [facility] Administration Folic Acid 1 mg 09/22/17 10:00 09/24/17 09:23 Folic Acid - PO 1 mg DAILY [facility] Administration Guaifenesin 10 ml 09/22/17 09:32 09/24/17 09:23 Robitussin - PO 10 ml Q6H PRN Administration COUGH Heparin Sodium (Porcine) 5,000 unit 09/21/17 22:00 09/24/17 12:19 Heparin - SQ Not Given BID [facility] Levothyroxine Sodium 25 mcg 09/22/17 07:00 09/24/17 06:05 Synthroid - PO 25 mcg DAILY@0700 [facility] Administration Metoprolol Succinate 12.5 mg 09/21/17 12:45 09/24/17 09:22 Toprol Xl - PO 12.5 mg DAILY [facility] Administration Oxycodone HCl 5 mg 09/23/17 20:53 09/24/17 08:47 Roxicodone - PO 5 mg Q4H PRN Administration PAIN LEVEL 6-10 Tamsulosin HCl 0.4 mg 09/22/17 08:30 09/24/17 08:34 Flomax - PO 0.4 mg DAILY@0830 [facility] Administration ASSESSMENT/PLAN: Patient is a 57 year old male with a past medical history of ESRD on HD (TTS at [facility]), CHF, hypertension, MV/TV repair, 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 He was admitted on 09/21/2017 for ESRD, hyperkalemia and worsening shortness of breath. Pulmonary: Shortness of breath, acute on chronic Left pleural effusion, for thoracentesis today Patient refusing placement of Pleurx cath Dialysis after thoracentesis Home oxygen dependent Renal: ESRD on HD with SOB/Volume overload Dialysis today Give midodrine 10mg x1 before HD Cardiology: Diastolic CHF, acute on chronic Toprol xl 12.5 mg daily, ASA daily Cardiology following Endocrine: Hypothyroidism Synthroid 25mcg F.E.N. Fluids: tolerating PO Electrolytes: monitor Nutrition: renal diet Prophylaxis: DVT: Heparin BID GI: Protonix Disposition: Discharge to rehab possibly after dialysis
[2017-09-24] MEDS: ASPIRIN 81 MG CHEWABLE TABLETS PO SCH (17:30)
[2017-09-24 20:54] LABS: PLEURAL FLUID LYMPHOCYTES 28 %; PLEURAL FLUID MACROPHAGES 19 %; PLEURAL FLUID MESOTHELIAL 20 %; PLEURAL FLUID MONOCYTE 32 %; PLEURAL FLUID NEUTROPHIL 1 %
[2017-09-25] MEDS: oxyCODONE HCL 5 MG TABLET PO PRN ×3 (02:45→23:52)
[2017-09-25] MEDS: ACETAMINOPHEN 325 MG TABLET (FP) PO PRN ×2 (02:46→23:54)
[2017-09-25] MEDS: LEVOTHYROXINE NA 25 MCG TABLET (FP) PO SCH (06:58)
[2017-09-25] MEDS: guaiFENesin 200 MG/10 ML 10 ML UNIT-DOSE CUPS PO PRN ×2 (07:55→20:18)
[2017-09-25] MEDS: CALCIUM ACETATE 667 MG CAPSULE (FP) PO SCH ×3 (07:56→17:49)
[2017-09-25] MEDS: TAMSULOSIN HCL 0.4 MG CAP.ER.24H (FP) PO SCH (07:56)
[2017-09-25 08:03] LABS: ANION GAP 7 (8-16); BLOOD UREA NITROGEN 30 mg/dL (7-18); CHLORIDE 107 mmol/L (98-107); CO2 29 mmol/L (21-32); GLUCOSE,RANDOM 98 mg/dL (74-106); SODIUM 143 mmol/L (136-145)
[2017-09-25 08:13] LABS: CALCIUM 7.5 mg/dL (8.5-10.1)
[2017-09-25 08:54] LABS: CREATININE 7.9 mg/dL (0.7-1.3)
[2017-09-25] MEDS ORDERED: ALBUTEROL SO4 2.5/IPRATROPIUM 0.5 INH SOL 3 ML VIAL.NEB. NEB ONE (10:15)
[2017-09-25] MEDS: CYCLOBENZAPRINE HCL 10 MG TABLET (FP) PO SCH ×2 (10:21→21:03)
[2017-09-25] MEDS: FOLIC ACID 1 MG TABLET (FP) PO SCH (10:22)
[2017-09-25] MEDS: HEPARIN NA (PORCINE) 5,000 UNITS/ML 1ML VIAL SQ SCH ×2 (10:23→21:01)
[2017-09-25] MEDS: METOPROLOL SUCCINATE 25 MG TAB.SR.24H (FP) PO SCH (10:24)
[2017-09-25] MEDS: ASPIRIN 81 MG CHEWABLE TABLETS PO SCH (13:11)
--- NOTE | 2017-09-25 13:18 | PN ---
Progress Note, Physician Chief Complaint: LYING SUPINE NOT COMPLAINING OF SOB History of Present Illness: CHART REVIEWED - Current Medication List Current Medications: Active Medications Acetaminophen (Tylenol -) 650 mg PO Q6H PRN PRN Reason: FEVER Last Admin: 09/25/17 02:46 Dose: 650 mg Albuterol/Ipratropium (Duoneb -) 1 amp NEB Q4H PRN PRN Reason: SHORTNESS OF BREATH Last Admin: 09/23/17 20:55 Dose: 1 amp Aspirin (Asa -) 81 mg PO DAILY [facility] Last Admin: 09/25/17 13:11 Dose: 81 mg Calcium Acetate (Phoslo -) 667 mg PO TIDCM [facility] Last Admin: 09/25/17 12:48 Dose: Not Given Cyclobenzaprine HCl (Flexeril -) 10 mg PO BID [facility] Last Admin: 09/25/17 10:21 Dose: 10 mg Folic Acid (Folic Acid -) 1 mg PO DAILY [facility] Last Admin: 09/25/17 10:22 Dose: 1 mg Guaifenesin (Robitussin -) 10 ml PO Q6H PRN PRN Reason: COUGH Last Admin: 09/25/17 07:55 Dose: 10 ml Heparin Sodium (Porcine) (Heparin -) 5,000 unit SQ BID [facility] Last Admin: 09/25/17 10:23 Dose: Not Given Levothyroxine Sodium (Synthroid -) 25 mcg PO DAILY@0700 [facility] Last Admin: 09/25/17 06:58 Dose: 25 mcg Metoprolol Succinate (Toprol Xl -) 12.5 mg PO DAILY [facility] Last Admin: 09/25/17 10:24 Dose: Not Given Oxycodone HCl (Roxicodone -) 5 mg PO Q4H PRN PRN Reason: PAIN LEVEL 6-10 Last Admin: 09/25/17 07:56 Dose: 5 mg Tamsulosin HCl (Flomax -) 0.4 mg PO DAILY@0830 [facility] Last Admin: 09/25/17 07:56 Dose: 0.4 mg - Objective Vital Signs: Vital Signs Temperature 97.2 F L 09/25/17 09:00 Pulse Rate 74 09/25/17 11:22 Respiratory Rate 20 09/25/17 11:22 Blood Pressure 98/62 09/25/17 11:22 O2 Sat by Pulse Oximetry (%) 94 L 09/24/17 21:00 Constitutional: Yes: Calm Eyes: Yes: EOM Intact HENT: Yes: Normocephalic Neck: Yes: Trachea Midline Cardiovascular: Yes: Regular Rate and Rhythm, S1, S2 Respiratory: Yes: Diminished (RIGHT BASE BREATH SOUNDS) Gastrointestinal: Yes: Soft Edema: No Neurological: Yes: Alert Labs: CBC, BMP 09/24/17 10:00 09/25/17 06:37 INR, PTT INR 1.26 (0.82-1.09) H 09/24/17 10:00 - ....Imaging Chest X-ray: Report Reviewed, Image Reviewed EKG: Report Reviewed, Image Reviewed Problem List - Problems (1) Pleural effusion due to another disorder Code(s): J90 - PLEURAL EFFUSION, NOT ELSEWHERE CLASSIFIED (2) Diarrhea Code(s): R19.7 - DIARRHEA, UNSPECIFIED Qualifiers: Diarrhea type: unspecified type Qualified Code(s): R19.7 - Diarrhea, unspecified (3) ESRD on hemodialysis Code(s): N18.6 - END STAGE RENAL DISEASE; Z99.2 - DEPENDENCE ON RENAL DIALYSIS (4) Acute on chronic combined systolic and diastolic CHF, NYHA class 4 Code(s): I50.43 - ACUTE ON CHRONIC COMBINED SYSTOLIC AND DIASTOLIC HRT FAIL (5) Acute on chronic respiratory failure with hypoxemia Code(s): J96.21 - ACUTE AND CHRONIC RESPIRATORY FAILURE WITH HYPOXIA Assessment/Plan 09/23/17 IMP DYSPNEA IMPROVED CHF ESRD LEFT PLEURAL EFFUSION TRANSUDATE PULMONARY HTN COPD S/P TV+ MV REPLACEMENT SECONDARY TO ENDOCARDITIS HEP C HLD NIDDM PLAN HD PER RENAL INHALED BRONCHODILATORS O2/DVT PROPH Temo STRONG MD
--- NOTE | 2017-09-25 13:31 | PN ---
Progress Note (short form) - Note Progress Note: Renal follow up for ESRD on HD Pt seen and examined at the bedside awake and alert + cough with sputum production pt reports cough is very uncomfortable no chest pain or sob s/p 2 hours of dialysis yesterday, pt terminated treatment Vital Signs Temperature 97.2 F L 09/25/17 09:00 Pulse Rate 74 09/25/17 11:22 Respiratory Rate 20 09/25/17 11:22 Blood Pressure 98/62 09/25/17 11:22 O2 Sat by Pulse Oximetry (%) 94 L 09/24/17 21:00 Intake & Output 09/22/17 09/23/17 09/24/17 09/25/17 23:59 23:59 23:59 23:59 Intake Total 430 Balance 430 Weight 69.944 kg NAD coughing trace LE edmea CBC, BMP 09/24/17 10:00 09/25/17 06:37 Current Medications Acetaminophen (Tylenol -) 650 mg PO Q6H PRN PRN Reason: FEVER Last Admin: 09/25/17 02:46 Dose: 650 mg Albuterol/Ipratropium (Duoneb -) 1 amp NEB Q4H PRN PRN Reason: SHORTNESS OF BREATH Last Admin: 09/23/17 20:55 Dose: 1 amp Aspirin (Asa -) 81 mg PO DAILY [facility] Last Admin: 09/25/17 13:11 Dose: 81 mg Calcium Acetate (Phoslo -) 667 mg PO TIDCM [facility] Last Admin: 09/25/17 12:48 Dose: Not Given Cyclobenzaprine HCl (Flexeril -) 10 mg PO BID [facility] Last Admin: 09/25/17 10:21 Dose: 10 mg Folic Acid (Folic Acid -) 1 mg PO DAILY [facility] Last Admin: 09/25/17 10:22 Dose: 1 mg Guaifenesin (Robitussin -) 10 ml PO Q6H PRN PRN Reason: COUGH Last Admin: 09/25/17 07:55 Dose: 10 ml Heparin Sodium (Porcine) (Heparin -) 5,000 unit SQ BID [facility] Last Admin: 09/25/17 10:23 Dose: Not Given Levothyroxine Sodium (Synthroid -) 25 mcg PO DAILY@0700 [facility] Last Admin: 09/25/17 06:58 Dose: 25 mcg Metoprolol Succinate (Toprol Xl -) 12.5 mg PO DAILY [facility] Last Admin: 09/25/17 10:24 Dose: Not Given Oxycodone HCl (Roxicodone -) 5 mg PO Q4H PRN PRN Reason: PAIN LEVEL 6-10 Last Admin: 09/25/17 07:56 Dose: 5 mg Tamsulosin HCl (Flomax -) 0.4 mg PO DAILY@0830 [facility] Last Admin: 09/25/17 07:56 Dose: 0.4 mg 57 year old gentleman with PMhx of ESRD on HD, CHF, s/p Valve replacements, with recent admission for oral abcess discharged on Augmentin presented with diarrhea after taking the medication for 2 days and found to have missed dialysis session and mild hyperkalemia. #ESRD on HD s/p short dialysis yesterday as pt terminated HD early no acute indication for dialysis today next treatment planned for tomorrow as inpatient or outpatient #SOB/Pleural effusion/Cough s/p large volume thoracentesis start mucomyst Neb Further mangement and imaging as per primary #Oral abcess ID consult noted to be off antibiotics at the present time will need dental follow up as outpatient #CHF/Valvular Heart disease UF as tolerated with Hd Thank you Abdirashid Guthrie DO
--- NOTE | 2017-09-25 14:47 | PN ---
Progress Note, Physician History of Present Illness: seen and examined today in [facility]. feels better after thoracentesis. wants to go to rehab - Current Medication List Current Medications: Active Medications Acetaminophen (Tylenol -) 650 mg PO Q6H PRN PRN Reason: FEVER Last Admin: 09/25/17 02:46 Dose: 650 mg Albuterol/Ipratropium (Duoneb -) 1 amp NEB Q4H PRN PRN Reason: SHORTNESS OF BREATH Last Admin: 09/23/17 20:55 Dose: 1 amp Aspirin (Asa -) 81 mg PO DAILY [facility] Last Admin: 09/25/17 13:11 Dose: 81 mg Calcium Acetate (Phoslo -) 667 mg PO TIDCM [facility] Last Admin: 09/25/17 12:48 Dose: Not Given Cyclobenzaprine HCl (Flexeril -) 10 mg PO BID [facility] Last Admin: 09/25/17 10:21 Dose: 10 mg Folic Acid (Folic Acid -) 1 mg PO DAILY [facility] Last Admin: 09/25/17 10:22 Dose: 1 mg Guaifenesin (Robitussin -) 10 ml PO Q6H PRN PRN Reason: COUGH Last Admin: 09/25/17 07:55 Dose: 10 ml Heparin Sodium (Porcine) (Heparin -) 5,000 unit SQ BID [facility] Last Admin: 09/25/17 10:23 Dose: Not Given Levothyroxine Sodium (Synthroid -) 25 mcg PO DAILY@0700 [facility] Last Admin: 09/25/17 06:58 Dose: 25 mcg Metoprolol Succinate (Toprol Xl -) 12.5 mg PO DAILY [facility] Last Admin: 09/25/17 10:24 Dose: Not Given Oxycodone HCl (Roxicodone -) 5 mg PO Q4H PRN PRN Reason: PAIN LEVEL 6-10 Last Admin: 09/25/17 07:56 Dose: 5 mg Tamsulosin HCl (Flomax -) 0.4 mg PO DAILY@0830 [facility] Last Admin: 09/25/17 07:56 Dose: 0.4 mg - Objective Vital Signs: Vital Signs Temperature 97.2 F L 09/25/17 09:00 Pulse Rate 74 09/25/17 11:22 Respiratory Rate 20 09/25/17 11:22 Blood Pressure 98/62 09/25/17 11:22 O2 Sat by Pulse Oximetry (%) 94 L 09/24/17 21:00 Constitutional: Yes: No Distress, Calm Eyes: Yes: Conjunctiva Clear HENT: Yes: Atraumatic, Normocephalic Neck: Yes: Supple, Trachea Midline Cardiovascular: Yes: Regular Rate and Rhythm, Murmur, S1, S2. No: Bradycardia, Tachycardia, Pulse Irregular, Bruit, JVD, Gallop, Rub, S3, S4, Varicosities Respiratory: Yes: Regular, Diminished, On Nasal O2, Rhonchi. No: Rales, SOB, Wheezes Gastrointestinal: Yes: Normal Bowel Sounds, Soft. No: Distention, Tenderness Musculoskeletal: Yes: Muscle Weakness Edema: No Peripheral Pulses WNL: Yes Neurological: Yes: Alert, Oriented Psychiatric: Yes: Alert, Oriented Labs: CBC, BMP 09/24/17 10:00 09/25/17 06:37 INR, PTT INR 1.26 (0.82-1.09) H 09/24/17 10:00 - ....Imaging Chest X-ray: Report Reviewed, Image Reviewed EKG: Report Reviewed, Image Reviewed Other: Report Reviewed, Image Reviewed Assessment/Plan IMP: SOB, Pleural effusions ASD PAF NSVT REC: 1. SOB-Recurrent Pleural effusions -s/p thoracentesis with 1.6L removed, symptomatic improvement -volume removal with HD as tolerates 2. ASD: -s/p MVR/TVR due to trans-septal puncture -Evaluated at [facility] for closure after occular TIA, deemed not a candidate for closure (Dr. Washington and Dr. Mc): ongoing cocaine use, poor compliance and concomitant valve dz -cont ASA 81mg daily -no sig change on recent echo 3. PAF:NSR currently -Cont Toprol, not candidate for full AC due to poor compliance, drug use -HR control -cont ASA 81mg daily 4. NSVT:during prior admissions -h/o non-obs CAD and normal LV systolic function -cont Toprol -Keep K and Mg wnl
--- NOTE | 2017-09-25 14:54 | DS ---
Physical Exam: SUBJECTIVE: Patient seen and examined, c/o of persistent cough. OBJECTIVE: Head/Neck ultrasound to evalute compression of esophagus ordered and completed but the results show that this test cannot evaluate esophagel compession. ENT consulted s/p left pleural thoracentesis with 1650 of fluid removed, breathing has improved. Vital Signs Period Temp Pulse Resp BP Sys/Anderson Pulse Ox Last 24 Hr 97.2 F-98.2 F 57-88 18-22 78-114/32-63 94 PHYSICAL EXAM GENERAL: The patient is awake, alert, and fully oriented, in mild respiratory distress. HEAD: Normal with no signs of trauma. EYES: PERRL, extraocular movements intact, sclera anicteric, conjunctiva clear. No ptosis. ENT: Ears normal, nares patent, oropharynx clear without exudates, moist mucous membranes. NECK: Trachea midline, full range of motion, supple. LUNGS: diminished bilaterally Left > right HEART: Regular rate and rhythm ABDOMEN: Soft, nontender, nondistended, normoactive bowel sounds, no guarding PSYCH: Normal mood, normal affect. SKIN: Warm, dry, normal turgor, no rashes or lesions noted LABS Laboratory Results - last 24 hr 09/24/17 09/25/17 13:57 06:37 Sodium 143 Potassium 5.0 Chloride 107 Carbon Dioxide 29 Anion Gap 7 L BUN 30 H Creatinine 7.9 H* Random Glucose 98 Calcium 7.5 L Pleural Fluid Source Pleural Pleural Color Colorless Pleural Appearance Clear Pleural WBC 38 Pleural RBC 181 Pleural Neutrophils 1 Pleural Lymphocytes 28 Pleural Monocytes 32 Pleural Macrophages 19 Pleural Mesothelial 20 Pleural Chloride TNP Pleural Total Protein 0.576 Pleural Albumin 0 Pleural LDH 78.6 Pleural Glucose 100.096 Pleural Amylase 40.220 Pleural Cholesterol < 50 Pleural Triglycerides 16 HOSPITAL COURSE: Date of Admission:09/24/17 Date of Discharge: 09/25/17 ASSESSMENT/PLAN: Patient is a 57 year old male with a past medical history of ESRD on HD (TTS at [facility]), CHF, hypertension, MV/TV repair, 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 He was admitted on 09/21/2017 for ESRD, hyperkalemia and worsening shortness of breath. Imaging: Head/Neck ultrasound to evaluate compression of esophagus ordered and completed but the results show that this test cannot evaluate esophagel compession. Pulmonary: Shortness of breath, acute on chronic Left pleural effusion, 1650 cc removed Patient refusing placement of Pleurx cath Home oxygen dependent @ 3 liters Breathing improved and back to patient's baseline Continue 3 liters of oxygen at rehab. Cough, persistent with throat discomfort Patient is s/p thoracentesis yesterday Given Albuterol treatment, and mucomyst States coughing is uncomfortable and persistent Head/neck u/s inconclusive ENT ordered to evaluate Head/Neck: Oral abscess As per ID, monitor off antibiotics Dental follow up as an outpatient Renal: ESRD on HD with SOB/Volume overload Dialysis tomorrow Renal following Cardiology: Diastolic CHF, acute on chronic Toprol xl 12.5 mg daily, ASA daily Cardiology following Endocrine: Hypothyroidism Synthroid 25mcg F.E.N. Fluids: tolerating PO Electrolytes: monitor Nutrition: renal diet Prophylaxis: DVT: Heparin BID GI: Protonix Disposition: Discharge to rehab possibly after dialysis and ENT follow up. full code. Discharge Summary Reason For Visit: END STAGE RENAL DISEASE ON HEMODIALYSIS Current Active Problems Diarrhea (Acute) Pleural effusion due to another disorder (Acute) Pulmonary HTN (Acute) ESRD on hemodialysis (Chronic) Condition: Stable - Instructions Diet, Activity, Other Instructions: Mr. Dockery: would urge dental f/u as outpt - will need dental antibiotic prophylaxis for his dental care (MV/TV repair) Patient to continue dialysis at your home dialysis center. Please call back with any questions that you may have [facility] [phone] Referrals: Omar Hernandez MD [Primary Care Provider] - Disposition: [facility] - Home Medications Comprehensive Discharge Medication List: Ambulatory Orders Folic Acid 1 mg PO DAILY 09/11/16 Sevelamer Carbonate [Renvela -] 1,600 mg PO BID 09/11/16 Albuterol Sulfate 0.042% [Ventolin 0.042% (Half-Strength) -] 1 amp NEB TID PRN 04/22/17 Cyclobenzaprine HCl [Flexeril -] 10 mg PO HS 04/22/17 Tamsulosin HCl 0.4 mg PO DAILY 07/03/17 Acetaminophen [Tylenol .Regular Strength -] 650 mg PO Q6H PRN tablet 07/20/17 Albuterol 2.5/Ipratropium 0.5 [Duoneb -] 1 amp NEB Q4H PRN amp 07/20/17 Aspirin [ASA -] 81 mg PO DAILY tab.chew 07/20/17 Calcium Acetate [Phoslo -] 667 mg PO TIDCM capsule 07/20/17 Levothyroxine [Synthroid -] 25 mcg PO DAILY@0700 tablet 07/20/17 Metoprolol Succinate [Toprol XL -] 12.5 mg PO DAILY tab.sr.24h 07/20/17 Oxycodone HCl/Acetaminophen [Percocet 5-325 mg Tablet] 1 - 2 tab PO TID PRN #10 tab MDD 6 08/30/17 Amox-Tr/K Cl [Augmentin 500-125mg Tablet -] 1 tab PO BID@0800,1730 #20 tablet Tamsulosin HCl [Flomax -] 0.4 mg PO DAILY@0830 cap.er.24h 09/11/17 Cyclobenzaprine HCl [Flexeril -] 10 mg PO BID tablet 09/25/17 Guaifenesin [Robitussin -] 10 ml PO Q6H PRN cup 09/25/17 - Discharge Referral Referred to [facility] No
[2017-09-26] MEDS: guaiFENesin 200 MG/10 ML 10 ML UNIT-DOSE CUPS PO PRN ×2 (04:59→11:44)
[2017-09-26] MEDS: ALBUTEROL SO4 2.5/IPRATROPIUM 0.5 INH SOL 3 ML VIAL.NEB. NEB PRN ×2 (05:04→17:22)
[2017-09-26] MEDS ORDERED: MIDODRINE HCL 5 MG TABLET PO ONE (06:00)
[2017-09-26] MEDS: LEVOTHYROXINE NA 25 MCG TABLET (FP) PO SCH (06:07)
[2017-09-26 11:21] LABS: ANION GAP 9 (8-16); BLOOD UREA NITROGEN 36 mg/dL (7-18); CALCIUM 7.3 mg/dL (8.5-10.1); CHLORIDE 106 mmol/L (98-107); CO2 26 mmol/L (21-32); GLUCOSE,RANDOM 115 mg/dL (74-106); POTASSIUM 4.9 mmol/L (3.5-5.1); SODIUM 141 mmol/L (136-145)
[2017-09-26] MEDS: TAMSULOSIN HCL 0.4 MG CAP.ER.24H (FP) PO SCH (11:41)
[2017-09-26] MEDS: CALCIUM ACETATE 667 MG CAPSULE (FP) PO SCH ×3 (11:41→17:07)
[2017-09-26] MEDS: METOPROLOL SUCCINATE 25 MG TAB.SR.24H (FP) PO SCH (11:42)
[2017-09-26] MEDS: ASPIRIN 81 MG CHEWABLE TABLETS PO SCH (11:42)
[2017-09-26] MEDS: CYCLOBENZAPRINE HCL 10 MG TABLET (FP) PO SCH ×2 (11:42→21:17)
[2017-09-26] MEDS: HEPARIN NA (PORCINE) 5,000 UNITS/ML 1ML VIAL SQ SCH ×2 (11:42→21:17)
[2017-09-26] MEDS: FOLIC ACID 1 MG TABLET (FP) PO SCH (11:42)
[2017-09-26] MEDS ORDERED: ALBUTEROL SO4 18 GM HFA INHALER IH PRN (12:11)
--- NOTE | 2017-09-26 12:21 | PN ---
Progress Note, Physician Chief Complaint: Pt A&Os3; c/o cough with phlegm History of Present Illness: 57 year old gentleman with PMhx of ESRD on HD, diastolic CHF, s/p Valve replacements, with recent admission for oral abcess discharged on Augmentin presented with diarrhea after taking the medication for 2 days and found to have missed dialysis session and mild hyperkalemia. Pt only started taking the Abx 2 day ago and has been having diarrhea. No Abd pain. No fever, chills. No N/ V. Missed dialysis on Thursday because of his weakness. - Current Medication List Current Medications: Active Medications Acetaminophen (Tylenol -) 650 mg PO Q6H PRN PRN Reason: FEVER Last Admin: 09/25/17 23:54 Dose: 650 mg Albuterol Sulfate (Ventolin Hfa Inhaler -) 2 puff IH Q4H PRN PRN Reason: SHORT OF BREATH/WHEEZING Albuterol/Ipratropium (Duoneb -) 1 amp NEB Q4H PRN PRN Reason: SHORTNESS OF BREATH Last Admin: 09/26/17 05:04 Dose: 1 amp Aspirin (Asa -) 81 mg PO DAILY [facility] Last Admin: 09/26/17 11:42 Dose: 81 mg Calcium Acetate (Phoslo -) 667 mg PO TIDCM [facility] Last Admin: 09/26/17 11:41 Dose: 667 mg Cyclobenzaprine HCl (Flexeril -) 10 mg PO BID [facility] Last Admin: 09/26/17 11:42 Dose: 10 mg Folic Acid (Folic Acid -) 1 mg PO DAILY [facility] Last Admin: 09/26/17 11:42 Dose: 1 mg Guaifenesin (Robitussin -) 10 ml PO Q6H PRN PRN Reason: COUGH Last Admin: 09/26/17 11:44 Dose: 10 ml Heparin Sodium (Porcine) (Heparin -) 5,000 unit SQ BID [facility] Last Admin: 09/26/17 11:42 Dose: Not Given Levothyroxine Sodium (Synthroid -) 25 mcg PO DAILY@0700 [facility] Last Admin: 09/26/17 06:07 Dose: 25 mcg Metoprolol Succinate (Toprol Xl -) 12.5 mg PO DAILY [facility] Last Admin: 09/26/17 11:42 Dose: Not Given Oxycodone HCl (Roxicodone -) 5 mg PO Q4H PRN PRN Reason: PAIN LEVEL 6-10 Last Admin: 09/25/17 23:52 Dose: 5 mg Tamsulosin HCl (Flomax -) 0.4 mg PO DAILY@0830 [facility] Last Admin: 09/26/17 11:41 Dose: 0.4 mg - Objective Vital Signs: Vital Signs Temperature 98.7 F 09/26/17 11:38 Pulse Rate 84 09/26/17 11:38 Respiratory Rate 22 09/26/17 11:38 Blood Pressure 85/54 09/26/17 11:38 O2 Sat by Pulse Oximetry (%) 92 L 09/25/17 21:00 Constitutional: Yes: Anxious, Moderate Distress Eyes: Yes: WNL HENT: Yes: WNL Neck: Yes: WNL Cardiovascular: Yes: Regular Rate and Rhythm, Murmur (3/6 systolic murmur, RSB-- >axilla), S1, S2 Respiratory: Yes: Wheezes Gastrointestinal: Yes: Soft ...Rectal Exam: Yes: Deferred Genitourinary: No: Anuria Musculoskeletal: Yes: Muscle Weakness Extremities: Yes: Cool Edema: No Peripheral Pulses WNL: No Peripheral Pulses: Left Doralis Pedis: 1+, Right Dorsalis Pedis: 1+ Integumentary: Yes: Other Neurological: Yes: Alert, Oriented, Weakness Psychiatric: Yes: Other (anxiety) Labs: CBC, BMP 09/24/17 10:00 09/26/17 07:00 INR, PTT INR 1.26 (0.82-1.09) H 09/24/17 10:00 Problem List - Problems (1) H/O mitral valve replacement Code(s): Z98.890 - OTHER SPECIFIED POSTPROCEDURAL STATES; Z95.2 - PRESENCE OF PROSTHETIC HEART VALVE (2) H/O tricuspid valve replacement Code(s): Z95.2 - PRESENCE OF PROSTHETIC HEART VALVE (3) Pulmonary HTN Code(s): I27.20 - PULMONARY HYPERTENSION, UNSPECIFIED (4) ESRD on hemodialysis Code(s): N18.6 - END STAGE RENAL DISEASE; Z99.2 - DEPENDENCE ON RENAL DIALYSIS (5) ESRD (end stage renal disease) on dialysis Code(s): N18.6 - END STAGE RENAL DISEASE; Z99.2 - DEPENDENCE ON RENAL DIALYSIS (6) H/O heart valve replacement with bioprosthetic valve Code(s): Z95.3 - PRESENCE OF XENOGENIC HEART VALVE (7) Hypotension Code(s): I95.9 - HYPOTENSION, UNSPECIFIED (8) NSVT (nonsustained ventricular tachycardia) Assessment/Plan: On metoprolol; give today's dose when BP is stable (though problematic using beta blockers, given pt's hx of cocaine abuse). LVEF WNL Keep electrolytes WNL. F/u EKG. Code(s): I47.2 - VENTRICULAR TACHYCARDIA (9) SVT (supraventricular tachycardia) Assessment/Plan: on beta blockers (thouh problematic using beta blockers if pt returns to cocaine ). Code(s): I47.1 - SUPRAVENTRICULAR TACHYCARDIA (10) Cocaine abuse Code(s): F14.10 - COCAINE ABUSE, UNCOMPLICATED (11) History of thoracentesis Assessment/Plan: left-side 1,650 mg removed; f/u labs. Code(s): Z98.890 - OTHER SPECIFIED POSTPROCEDURAL STATES
--- NOTE | 2017-09-26 13:03 | PN ---
Progress Note (short form) - Note Progress Note: Feels about the same. Dry cough. No CP. Intake & Output 09/23/17 09/24/17 09/25/17 09/26/17 23:59 23:59 23:59 23:59 Intake Total 1180 Balance 1180 Weight 154 lb 3.2 oz 153 lb 9 oz Last Vital Signs Temp Pulse Resp BP Pulse Ox 98.7 F 84 22 85/54 92 L 09/26/17 11:38 09/26/17 11:38 09/26/17 11:38 09/26/17 11:38 09/25/17 21:00 Active Medications Acetaminophen (Tylenol -) 650 mg PO Q6H PRN PRN Reason: FEVER Last Admin: 09/25/17 23:54 Dose: 650 mg Albuterol Sulfate (Ventolin Hfa Inhaler -) 2 puff IH Q4H PRN PRN Reason: SHORT OF BREATH/WHEEZING Albuterol/Ipratropium (Duoneb -) 1 amp NEB Q4H PRN PRN Reason: SHORTNESS OF BREATH Last Admin: 09/26/17 05:04 Dose: 1 amp Aspirin (Asa -) 81 mg PO DAILY [facility] Last Admin: 09/26/17 11:42 Dose: 81 mg Calcium Acetate (Phoslo -) 667 mg PO TIDCM [facility] Last Admin: 09/26/17 11:41 Dose: 667 mg Cyclobenzaprine HCl (Flexeril -) 10 mg PO BID [facility] Last Admin: 09/26/17 11:42 Dose: 10 mg Folic Acid (Folic Acid -) 1 mg PO DAILY [facility] Last Admin: 09/26/17 11:42 Dose: 1 mg Guaifenesin (Robitussin -) 10 ml PO Q6H PRN PRN Reason: COUGH Last Admin: 09/26/17 11:44 Dose: 10 ml Heparin Sodium (Porcine) (Heparin -) 5,000 unit SQ BID [facility] Last Admin: 09/26/17 11:42 Dose: Not Given Levothyroxine Sodium (Synthroid -) 25 mcg PO DAILY@0700 [facility] Last Admin: 09/26/17 06:07 Dose: 25 mcg Metoprolol Succinate (Toprol Xl -) 12.5 mg PO DAILY [facility] Last Admin: 09/26/17 11:42 Dose: Not Given Oxycodone HCl (Roxicodone -) 5 mg PO Q4H PRN PRN Reason: PAIN LEVEL 6-10 Last Admin: 09/25/17 23:52 Dose: 5 mg Tamsulosin HCl (Flomax -) 0.4 mg PO DAILY@0830 [facility] Last Admin: 09/26/17 11:41 Dose: 0.4 mg Constitutional: Yes: No Distress Eyes: Yes: Conjunctiva Clear, EOM Intact HENT: Yes: Atraumatic, Normocephalic Neck: Yes: Supple, Trachea Midline Cardiovascular: Yes: Regular Rate and Rhythm, Murmur, S1, S2. No: Bradycardia, Tachycardia, Pulse Irregular, Bruit, JVD, Gallop, Rub, S3, S4, Varicosities Respiratory: Yes: Regular, Diminished, On Nasal O2, Rales, SOB. No: Rhonchi, Wheezes Gastrointestinal: Yes: Normal Bowel Sounds, Soft. No: Distention, Tenderness Extremities: Yes: WNL Edema: LLE: Trace, RLE: Trace Peripheral Pulses WNL: Yes Neurological: Yes: Alert, Oriented Psychiatric: Yes: Alert, Oriented Labs: Laboratory Results - last 24 hr 09/26/17 07:00 Sodium 141 Potassium 4.9 Chloride 106 Carbon Dioxide 26 Anion Gap 9 BUN 36 H Creatinine 9.0 H* Random Glucose 115 H Calcium 7.3 L Problem List - Problems (1) Pulmonary HTN Code(s): I27.20 - PULMONARY HYPERTENSION, UNSPECIFIED (2) Diarrhea Code(s): R19.7 - DIARRHEA, UNSPECIFIED Qualifiers: Diarrhea type: unspecified type Qualified Code(s): R19.7 - Diarrhea, unspecified (3) ESRD on hemodialysis Code(s): N18.6 - END STAGE RENAL DISEASE; Z99.2 - DEPENDENCE ON RENAL DIALYSIS (4) Anemia in CKD (chronic kidney disease) Code(s): N18.9 - CHRONIC KIDNEY DISEASE, UNSPECIFIED; D63.1 - ANEMIA IN CHRONIC KIDNEY DISEASE (5) CHF (congestive heart failure) Code(s): I50.9 - HEART FAILURE, UNSPECIFIED (6) COPD (chronic obstructive pulmonary disease) Code(s): J44.9 - CHRONIC OBSTRUCTIVE PULMONARY DISEASE, UNSPECIFIED (7) Dyspnea Code(s): R06.00 - DYSPNEA, UNSPECIFIED (8) H/O heart valve replacement with bioprosthetic valve Code(s): Z95.3 - PRESENCE OF XENOGENIC HEART VALVE (9) H/O mitral valve repair Code(s): Z98.890 - OTHER SPECIFIED POSTPROCEDURAL STATES (11) Pleural effusion Code(s): J90 - PLEURAL EFFUSION, NOT ELSEWHERE CLASSIFIED IMP DYSPNEA CHF ESRD LEFT PLEURAL EFFUSION TRANSUDATE PULMONARY HTN COPD S/P TV+ MV REPLACEMENT SECONDARY TO ENDOCARDITIS HEP C HLD NIDDM PLAN HD PER RENAL INHALED BRONCHODILATORS O2 DR POWELL
--- NOTE | 2017-09-26 18:54 | PN ---
Physical Exam: SUBJECTIVE: Patient seen and examined. He continues to have throat discomfort. He wants his albuterol inhaler at the bedside and to shave OBJECTIVE: Vital Signs Period Temp Pulse Resp BP Sys/Anderson Pulse Ox Last 24 Hr 97.5 F-99.2 F 70-91 18-22 83-142/40-64 92-93 PE Neuro: alert, awake, cn 2-12intact Pulm: basilar crackles, + NC CV: s1 s2 rrr Abd: s nt nd + bs Ext: trace le edema Laboratory Results - last 24 hr 09/26/17 07:00 Sodium 141 Potassium 4.9 Chloride 106 Carbon Dioxide 26 Anion Gap 9 BUN 36 H Creatinine 9.0 H* Random Glucose 115 H Calcium 7.3 L Active Medications Generic Name Dose Route Start Last Admin Trade Name Freq PRN Reason Stop Dose Admin Acetaminophen 650 mg 09/22/17 21:00 09/25/17 23:54 Tylenol - PO 650 mg Q6H PRN Administration FEVER Albuterol Sulfate 2 puff 09/26/17 12:11 Ventolin Hfa Inhaler - IH Q4H PRN SHORT OF BREATH/WHEEZING Albuterol/Ipratropium 1 amp 09/21/17 12:31 09/26/17 17:22 Duoneb - NEB 1 amp Q4H PRN Administration SHORTNESS OF BREATH Aspirin 81 mg 09/25/17 12:45 09/26/17 11:42 Asa - PO 81 mg DAILY [facility] Administration Calcium Acetate 667 mg 09/21/17 17:30 09/26/17 17:07 Phoslo - PO 667 mg TIDCM [facility] Administration Cyclobenzaprine HCl 10 mg 09/23/17 22:00 09/26/17 11:42 Flexeril - PO 10 mg BID [facility] Administration Folic Acid 1 mg 09/22/17 10:00 09/26/17 11:42 Folic Acid - PO 1 mg DAILY [facility] Administration Guaifenesin 10 ml 09/22/17 09:32 09/26/17 11:44 Robitussin - PO 10 ml Q6H PRN Administration COUGH Heparin Sodium (Porcine) 5,000 unit 09/21/17 22:00 09/26/17 11:42 Heparin - SQ Not Given BID [facility] Levothyroxine Sodium 25 mcg 09/22/17 07:00 09/26/17 06:07 Synthroid - PO 25 mcg DAILY@0700 [facility] Administration Metoprolol Succinate 12.5 mg 09/21/17 12:45 09/26/17 11:42 Toprol Xl - PO Not Given DAILY [facility] Oxycodone HCl 5 mg 09/23/17 20:53 09/25/17 23:52 Roxicodone - PO 5 mg Q4H PRN Administration PAIN LEVEL 6-10 Tamsulosin HCl 0.4 mg 09/22/17 08:30 09/26/17 11:41 Flomax - PO 0.4 mg DAILY@0830 [facility] Administration Assessment: 57 year old male with PMhx of ESRD on HD (TTS at [facility]), CHF, Hypertension, MV/TV repair, MRSA endocarditis s/p Bio AVR/MVR 2014 at [facility], polysubstance abuse, recently discharged with augmentin for oral abscess, admitted with diarrhea and missed HD and hyperkalemia, now seen with increased sob and weakness. Plan: 1. Acute on chronic SOB - Due to recurrent pleural effusions - s/p thoracentesis 09/24 - SOB improved - Pt refuses pleurx cath - Requires supplemental o2 3L 2. Persistent throat pain - Head/neck US evaluate cannot eval esophageal compression - ENT consulted 3. ESRD on HD with SOB/Volume overload - HD per renal 4. ASD - s/p MVR/TVR due to trans-septal puncture - Evaluated at [facility] for closure after occular TIA, deemed not a candidate for closure (Dr. Washington and Dr. Mc): ongoing cocaine use, poor compliance and concomitant valve dz - ASA 5. PAF - In sinus - Toprol xl 12.5mg - Not candidate for AC per cards 6. Acute on chronic diastolic CHF - Toprol xl 12.5 mg - ASA daily 7. Hypothyroidism - Synthroid 25mcg Dispo: - SNF Visit type - Emergency Visit Emergency Visit: Yes ED Registration Date: 09/24/17 Care time: The patient presented to the Emergency Department on the above date and was hospitalized for further evaluation of their emergent condition. - New Patient This patient is new to me today: No - Critical Care Critical Care patient: No
[2017-09-26] MEDS: oxyCODONE HCL 5 MG TABLET PO PRN (22:09)
--- NOTE | 2017-09-26 22:13 | PN ---
Progress Note (short form) - Note Progress Note: esrd copd chf mv replacement Active Medications Acetaminophen (Tylenol -) 650 mg PO Q6H PRN PRN Reason: FEVER Last Admin: 09/25/17 23:54 Dose: 650 mg Albuterol Sulfate (Ventolin Hfa Inhaler -) 2 puff IH Q4H PRN PRN Reason: SHORT OF BREATH/WHEEZING Albuterol/Ipratropium (Duoneb -) 1 amp NEB Q4H PRN PRN Reason: SHORTNESS OF BREATH Last Admin: 09/26/17 17:22 Dose: 1 amp Aspirin (Asa -) 81 mg PO DAILY [facility] Last Admin: 09/26/17 11:42 Dose: 81 mg Calcium Acetate (Phoslo -) 667 mg PO TIDCM [facility] Last Admin: 09/26/17 17:07 Dose: 667 mg Cyclobenzaprine HCl (Flexeril -) 10 mg PO BID [facility] Last Admin: 09/26/17 21:17 Dose: 10 mg Folic Acid (Folic Acid -) 1 mg PO DAILY [facility] Last Admin: 09/26/17 11:42 Dose: 1 mg Guaifenesin (Robitussin -) 10 ml PO Q6H PRN PRN Reason: COUGH Last Admin: 09/26/17 11:44 Dose: 10 ml Heparin Sodium (Porcine) (Heparin -) 5,000 unit SQ BID [facility] Last Admin: 09/26/17 21:17 Dose: Not Given Levothyroxine Sodium (Synthroid -) 25 mcg PO DAILY@0700 [facility] Last Admin: 09/26/17 06:07 Dose: 25 mcg Metoprolol Succinate (Toprol Xl -) 12.5 mg PO DAILY [facility] Last Admin: 09/26/17 11:42 Dose: Not Given Oxycodone HCl (Roxicodone -) 5 mg PO Q4H PRN PRN Reason: PAIN LEVEL 6-10 Tamsulosin HCl (Flomax -) 0.4 mg PO DAILY@0830 [facility] Last Admin: 09/26/17 11:41 Dose: 0.4 mg Last Vital Signs Temp Pulse Resp BP Pulse Ox 97.9 F 88 18 92/40 93 L 09/26/17 18:00 09/26/17 18:00 09/26/17 18:00 09/26/17 18:00 09/26/17 09:00 CBC, BMP 09/24/17 10:00 09/26/17 07:00
[2017-09-27] MEDS: LEVOTHYROXINE NA 25 MCG TABLET (FP) PO SCH (06:01)
[2017-09-27] MEDS: guaiFENesin 200 MG/10 ML 10 ML UNIT-DOSE CUPS PO PRN (06:01)
[2017-09-27] MEDS: oxyCODONE HCL 5 MG TABLET PO PRN ×2 (06:01→23:44)
[2017-09-27] MEDS: ALBUTEROL SO4 2.5/IPRATROPIUM 0.5 INH SOL 3 ML VIAL.NEB. NEB PRN (08:28)
[2017-09-27] MEDS ORDERED: PT OWN MED DRAWER 7, Y5N ONE (09:07)
[2017-09-27] MEDS: ASPIRIN 81 MG CHEWABLE TABLETS PO SCH (09:25)
[2017-09-27] MEDS: CALCIUM ACETATE 667 MG CAPSULE (FP) PO SCH ×3 (09:26→17:33)
[2017-09-27] MEDS: CYCLOBENZAPRINE HCL 10 MG TABLET (FP) PO SCH ×2 (09:26→21:53)
[2017-09-27] MEDS: FOLIC ACID 1 MG TABLET (FP) PO SCH (09:26)
[2017-09-27] MEDS: TAMSULOSIN HCL 0.4 MG CAP.ER.24H (FP) PO SCH (09:26)
[2017-09-27] MEDS: HEPARIN NA (PORCINE) 5,000 UNITS/ML 1ML VIAL SQ SCH ×2 (11:05→21:53)
[2017-09-27] MEDS: METOPROLOL SUCCINATE 25 MG TAB.SR.24H (FP) PO SCH (11:20)
--- NOTE | 2017-09-27 12:11 | PN ---
Progress Note (short form) - Note Progress Note: Feels about the same. Some throat discomfort. Tolerating PO intake. Dry cough. No CP. Intake & Output 09/24/17 09/25/17 09/26/17 09/27/17 23:59 23:59 23:59 23:59 Intake Total 1180 360 Balance 1180 360 Weight 154 lb 3.2 oz 153 lb 9 oz Last Vital Signs Temp Pulse Resp BP Pulse Ox 96.1 F L 78 18 86/66 93 L 09/27/17 06:00 09/27/17 06:00 09/27/17 06:00 09/27/17 06:00 09/26/17 21:00 Active Medications Acetaminophen (Tylenol -) 650 mg PO Q6H PRN PRN Reason: FEVER Last Admin: 09/25/17 23:54 Dose: 650 mg Albuterol Sulfate (Ventolin Hfa Inhaler -) 2 puff IH Q4H PRN PRN Reason: SHORT OF BREATH/WHEEZING Last Admin: 09/27/17 09:27 Dose: 2 inh Albuterol/Ipratropium (Duoneb -) 1 amp NEB Q4H PRN PRN Reason: SHORTNESS OF BREATH Last Admin: 09/27/17 08:28 Dose: 1 amp Aspirin (Asa -) 81 mg PO DAILY [facility] Last Admin: 09/27/17 09:25 Dose: 81 mg Calcium Acetate (Phoslo -) 667 mg PO TIDCM [facility] Last Admin: 09/27/17 09:26 Dose: 667 mg Cyclobenzaprine HCl (Flexeril -) 10 mg PO BID [facility] Last Admin: 09/27/17 09:26 Dose: 10 mg Folic Acid (Folic Acid -) 1 mg PO DAILY [facility] Last Admin: 09/27/17 09:26 Dose: 1 mg Guaifenesin (Robitussin -) 10 ml PO Q6H PRN PRN Reason: COUGH Last Admin: 09/27/17 06:01 Dose: 10 ml Heparin Sodium (Porcine) (Heparin -) 5,000 unit SQ BID [facility] Last Admin: 09/27/17 11:05 Dose: Not Given Levothyroxine Sodium (Synthroid -) 25 mcg PO DAILY@0700 [facility] Last Admin: 09/27/17 06:01 Dose: 25 mcg Metoprolol Succinate (Toprol Xl -) 12.5 mg PO DAILY [facility] Last Admin: 09/27/17 11:20 Dose: 12.5 mg Oxycodone HCl (Roxicodone -) 5 mg PO Q4H PRN PRN Reason: PAIN LEVEL 6-10 Last Admin: 09/27/17 06:01 Dose: 5 mg Tamsulosin HCl (Flomax -) 0.4 mg PO DAILY@0830 [facility] Last Admin: 09/27/17 09:26 Dose: 0.4 mg Constitutional: Yes: No Distress Eyes: Yes: Conjunctiva Clear, EOM Intact HENT: Yes: Atraumatic, Normocephalic Neck: Yes: Supple, Trachea Midline Cardiovascular: Yes: Regular Rate and Rhythm, Murmur, S1, S2. No: Bradycardia, Tachycardia, Pulse Irregular, Bruit, JVD, Gallop, Rub, S3, S4, Varicosities Respiratory: Yes: Regular, Diminished, On Nasal O2, Rales, SOB. No: Rhonchi, Wheezes Gastrointestinal: Yes: Normal Bowel Sounds, Soft. No: Distention, Tenderness Extremities: Yes: WNL Edema: LLE: Trace, RLE: Trace Peripheral Pulses WNL: Yes Neurological: Yes: Alert, Oriented Psychiatric: Yes: Alert, Oriented Labs: Problem List - Problems (1) Pulmonary HTN Code(s): I27.20 - PULMONARY HYPERTENSION, UNSPECIFIED (2) Diarrhea Code(s): R19.7 - DIARRHEA, UNSPECIFIED Qualifiers: Diarrhea type: unspecified type Qualified Code(s): R19.7 - Diarrhea, unspecified (3) ESRD on hemodialysis Code(s): N18.6 - END STAGE RENAL DISEASE; Z99.2 - DEPENDENCE ON RENAL DIALYSIS (4) Anemia in CKD (chronic kidney disease) Code(s): N18.9 - CHRONIC KIDNEY DISEASE, UNSPECIFIED; D63.1 - ANEMIA IN CHRONIC KIDNEY DISEASE (5) CHF (congestive heart failure) Code(s): I50.9 - HEART FAILURE, UNSPECIFIED (6) COPD (chronic obstructive pulmonary disease) Code(s): J44.9 - CHRONIC OBSTRUCTIVE PULMONARY DISEASE, UNSPECIFIED (7) Dyspnea Code(s): R06.00 - DYSPNEA, UNSPECIFIED (8) H/O heart valve replacement with bioprosthetic valve Code(s): Z95.3 - PRESENCE OF XENOGENIC HEART VALVE (9) H/O mitral valve repair Code(s): Z98.890 - OTHER SPECIFIED POSTPROCEDURAL STATES (11) Pleural effusion Code(s): J90 - PLEURAL EFFUSION, NOT ELSEWHERE CLASSIFIED IMP DYSPNEA CHF ESRD LEFT PLEURAL EFFUSION TRANSUDATE PULMONARY HTN COPD S/P TV+ MV REPLACEMENT SECONDARY TO ENDOCARDITIS HEP C HLD NIDDM PLAN HD PER RENAL INHALED BRONCHODILATORS / MDI O2 NOTED ENT CONSULTED DR POWELL
--- NOTE | 2017-09-27 15:01 | PN ---
Physical Exam: SUBJECTIVE: Patient seen and examined. Pt with no new complaints. Discussed plan of care with pt and sister (HCP) over phone. OBJECTIVE: Vital Signs Period Temp Pulse Resp BP Sys/Anderson Pulse Ox Last 24 Hr 96.1 F-98.6 F 78-101 18-20 86-122/40-66 93 PE Neuro: alert, awake, cn 2-12intact Pulm: basilar crackles, + NC CV: s1 s2 rrr Abd: s nt nd + bs Ext: trace le edema Active Medications Generic Name Dose Route Start Last Admin Trade Name Freq PRN Reason Stop Dose Admin Acetaminophen 650 mg 09/22/17 21:00 09/25/17 23:54 Tylenol - PO 650 mg Q6H PRN Administration FEVER Albuterol Sulfate 2 puff 09/26/17 12:11 09/27/17 09:27 Ventolin Hfa Inhaler - IH 2 inh Q4H PRN Administration SHORT OF BREATH/WHEEZING Albuterol/Ipratropium 1 amp 09/21/17 12:31 09/27/17 08:28 Duoneb - NEB 1 amp Q4H PRN Administration SHORTNESS OF BREATH Aspirin 81 mg 09/25/17 12:45 09/27/17 09:25 Asa - PO 81 mg DAILY [facility] Administration Calcium Acetate 667 mg 09/21/17 17:30 09/27/17 14:08 Phoslo - PO 667 mg TIDCM [facility] Administration Cyclobenzaprine HCl 10 mg 09/23/17 22:00 09/27/17 09:26 Flexeril - PO 10 mg BID [facility] Administration Folic Acid 1 mg 09/22/17 10:00 09/27/17 09:26 Folic Acid - PO 1 mg DAILY [facility] Administration Guaifenesin 10 ml 09/22/17 09:32 09/27/17 06:01 Robitussin - PO 10 ml Q6H PRN Administration COUGH Heparin Sodium (Porcine) 5,000 unit 09/21/17 22:00 09/27/17 11:05 Heparin - SQ Not Given BID [facility] Levothyroxine Sodium 25 mcg 09/22/17 07:00 09/27/17 06:01 Synthroid - PO 25 mcg DAILY@0700 [facility] Administration Metoprolol Succinate 12.5 mg 09/21/17 12:45 09/27/17 11:20 Toprol Xl - PO 12.5 mg DAILY [facility] Administration Oxycodone HCl 5 mg 09/26/17 21:49 09/27/17 06:01 Roxicodone - PO 5 mg Q4H PRN Administration PAIN LEVEL 6-10 Tamsulosin HCl 0.4 mg 09/22/17 08:30 09/27/17 09:26 Flomax - PO 0.4 mg DAILY@0830 [facility] Administration Assessment: 57 year old male with PMhx of ESRD on HD (TTS at [facility]), CHF, Hypertension, MV/TV repair, MRSA endocarditis s/p Bio AVR/MVR [address] [facility], polysubstance abuse, recently discharged with augmentin for oral abscess, admitted with diarrhea and missed HD and hyperkalemia, now seen with increased sob and weakness. Plan: 1. Acute on chronic SOB - Due to recurrent pleural effusions - s/p thoracentesis 09/24 - Pt refuses pleurx cath - Requires supplemental o2 3L 2. Persistent throat pain - Head/neck US evaluate cannot eval esophageal compression - Spoke with covering ENT MD, symptoms not acute, pt can follow up in office tomorrow - D/w pt he is aware 3. ESRD on HD with SOB/Volume overload - HD per renal 4. ASD - s/p MVR/TVR due to trans-septal puncture - Evaluated at [facility] for closure after occular TIA, deemed not a candidate for closure (Dr. Washington and Dr. Mc): ongoing cocaine use, poor compliance and concomitant valve dz - ASA 5. PAF - In sinus - Toprol xl 12.5mg - Not candidate for AC per cards 6. Acute on chronic diastolic CHF - Toprol xl 12.5 mg - ASA daily 7. Hypothyroidism - Synthroid 25mcg Dispo: - SNF authorization in progress Visit type - Emergency Visit Emergency Visit: Yes ED Registration Date: 09/24/17 Care time: The patient presented to the Emergency Department on the above date and was hospitalized for further evaluation of their emergent condition. - New Patient This patient is new to me today: No - Critical Care Critical Care patient: No
--- NOTE | 2017-09-27 17:59 | PN ---
Progress Note, Physician Chief Complaint: Pt A&Os3; no chest pain; cough has diminished. History of Present Illness: 57 year old black man with PMhx of ESRD on HD, diastolic CHF, s/p Valve replacements, HTN, with recent admission for oral abcess discharged on Augmentin presented with diarrhea after taking the medication for 2 days and found to have missed dialysis session and mild hyperkalemia. Pt only started taking the Abx 2 day ago and has been having diarrhea. No Abd pain. No fever, chills. No N/V. Missed dialysis on Thursday because of his weakness. - Current Medication List Current Medications: Active Medications Acetaminophen (Tylenol -) 650 mg PO Q6H PRN PRN Reason: FEVER Last Admin: 09/25/17 23:54 Dose: 650 mg Albuterol Sulfate (Ventolin Hfa Inhaler -) 2 puff IH Q4H PRN PRN Reason: SHORT OF BREATH/WHEEZING Last Admin: 09/27/17 09:27 Dose: 2 inh Albuterol/Ipratropium (Duoneb -) 1 amp NEB Q4H PRN PRN Reason: SHORTNESS OF BREATH Last Admin: 09/27/17 08:28 Dose: 1 amp Aspirin (Asa -) 81 mg PO DAILY [facility] Last Admin: 09/27/17 09:25 Dose: 81 mg Calcium Acetate (Phoslo -) 667 mg PO TIDCM [facility] Last Admin: 09/27/17 17:33 Dose: 667 mg Cyclobenzaprine HCl (Flexeril -) 10 mg PO BID [facility] Last Admin: 09/27/17 09:26 Dose: 10 mg Folic Acid (Folic Acid -) 1 mg PO DAILY [facility] Last Admin: 09/27/17 09:26 Dose: 1 mg Guaifenesin (Robitussin -) 10 ml PO Q6H PRN PRN Reason: COUGH Last Admin: 09/27/17 06:01 Dose: 10 ml Heparin Sodium (Porcine) (Heparin -) 5,000 unit SQ BID [facility] Last Admin: 09/27/17 11:05 Dose: Not Given Levothyroxine Sodium (Synthroid -) 25 mcg PO DAILY@0700 [facility] Last Admin: 09/27/17 06:01 Dose: 25 mcg Metoprolol Succinate (Toprol Xl -) 12.5 mg PO DAILY [facility] Last Admin: 09/27/17 11:20 Dose: 12.5 mg Oxycodone HCl (Roxicodone -) 5 mg PO Q4H PRN PRN Reason: PAIN LEVEL 6-10 Last Admin: 09/27/17 06:01 Dose: 5 mg Tamsulosin HCl (Flomax -) 0.4 mg PO DAILY@0830 [facility] Last Admin: 09/27/17 09:26 Dose: 0.4 mg - Objective Vital Signs: Vital Signs Temperature 97.8 F 09/27/17 13:51 Pulse Rate 82 09/27/17 13:51 Respiratory Rate 18 09/27/17 13:51 Blood Pressure 102/51 09/27/17 13:51 O2 Sat by Pulse Oximetry (%) 93 L 09/26/17 21:00 Labs: CBC, BMP 09/24/17 10:00 09/26/17 07:00 INR, PTT INR 1.26 (0.82-1.09) H 09/24/17 10:00 Problem List - Problems (1) H/O mitral valve replacement Code(s): Z98.890 - OTHER SPECIFIED POSTPROCEDURAL STATES; Z95.2 - PRESENCE OF PROSTHETIC HEART VALVE (2) H/O tricuspid valve replacement Code(s): Z95.2 - PRESENCE OF PROSTHETIC HEART VALVE (3) Pulmonary HTN Code(s): I27.20 - PULMONARY HYPERTENSION, UNSPECIFIED (4) ESRD on hemodialysis Code(s): N18.6 - END STAGE RENAL DISEASE; Z99.2 - DEPENDENCE ON RENAL DIALYSIS (5) ESRD (end stage renal disease) on dialysis Code(s): N18.6 - END STAGE RENAL DISEASE; Z99.2 - DEPENDENCE ON RENAL DIALYSIS (6) H/O heart valve replacement with bioprosthetic valve Code(s): Z95.3 - PRESENCE OF XENOGENIC HEART VALVE (7) Hypotension Code(s): I95.9 - HYPOTENSION, UNSPECIFIED (8) NSVT (nonsustained ventricular tachycardia) Assessment/Plan: On metoprolol; (though problematic using beta blockers, given pt's hx of cocaine abuse). LVEF WNL Keep electrolytes WNL. F/u EKG. Code(s): I47.2 - VENTRICULAR TACHYCARDIA (9) SVT (supraventricular tachycardia) Assessment/Plan: on beta blockers (though problematic using beta blockers if pt returns to cocaine). Code(s): I47.1 - SUPRAVENTRICULAR TACHYCARDIA (10) Cocaine abuse Code(s): F14.10 - COCAINE ABUSE, UNCOMPLICATED (11) Hypothyroid Assessment/Plan: On synthroid. TSH elevated 06/2017. F/u TFTs. Code(s): E03.9 - HYPOTHYROIDISM, UNSPECIFIED
--- NOTE | 2017-09-27 19:05 | PN ---
Progress Note (short form) - Note Progress Note: esrd copd chf mv replacement Current Medications Acetaminophen (Tylenol -) 650 mg PO Q6H PRN PRN Reason: FEVER Last Admin: 09/25/17 23:54 Dose: 650 mg Albuterol Sulfate (Ventolin Hfa Inhaler -) 2 puff IH Q4H PRN PRN Reason: SHORT OF BREATH/WHEEZING Last Admin: 09/27/17 09:27 Dose: 2 inh Albuterol/Ipratropium (Duoneb -) 1 amp NEB Q4H PRN PRN Reason: SHORTNESS OF BREATH Last Admin: 09/27/17 08:28 Dose: 1 amp Aspirin (Asa -) 81 mg PO DAILY [facility] Last Admin: 09/27/17 09:25 Dose: 81 mg Calcium Acetate (Phoslo -) 667 mg PO TIDCM [facility] Last Admin: 09/27/17 17:33 Dose: 667 mg Cyclobenzaprine HCl (Flexeril -) 10 mg PO BID [facility] Last Admin: 09/27/17 09:26 Dose: 10 mg Folic Acid (Folic Acid -) 1 mg PO DAILY [facility] Last Admin: 09/27/17 09:26 Dose: 1 mg Guaifenesin (Robitussin -) 10 ml PO Q6H PRN PRN Reason: COUGH Last Admin: 09/27/17 06:01 Dose: 10 ml Heparin Sodium (Porcine) (Heparin -) 5,000 unit SQ BID [facility] Last Admin: 09/27/17 11:05 Dose: Not Given Levothyroxine Sodium (Synthroid -) 25 mcg PO DAILY@0700 [facility] Last Admin: 09/27/17 06:01 Dose: 25 mcg Metoprolol Succinate (Toprol Xl -) 12.5 mg PO DAILY [facility] Last Admin: 09/27/17 11:20 Dose: 12.5 mg Oxycodone HCl (Roxicodone -) 5 mg PO Q4H PRN PRN Reason: PAIN LEVEL 6-10 Last Admin: 09/27/17 06:01 Dose: 5 mg Tamsulosin HCl (Flomax -) 0.4 mg PO DAILY@0830 [facility] Last Admin: 09/27/17 09:26 Dose: 0.4 mg Last Vital Signs Temp Pulse Resp BP Pulse Ox 97.8 F 82 18 102/51 96 09/27/17 13:51 09/27/17 13:51 09/27/17 13:51 09/27/17 13:51 09/27/17 09:00 lungs clear heart reg rte and rhythm abd soft ext no edema CBC, BMP 09/24/17 10:00 09/26/17 07:00 IMP esrd copd chf Plan- hd on thursday
[2017-09-28] MEDS: LEVOTHYROXINE NA 25 MCG TABLET (FP) PO SCH (06:17)
[2017-09-28 06:46] VITALS: PULSE 87
[2017-09-28] MEDS: ALBUTEROL SO4 2.5/IPRATROPIUM 0.5 INH SOL 3 ML VIAL.NEB. NEB PRN (07:50)
[2017-09-28] MEDS: TAMSULOSIN HCL 0.4 MG CAP.ER.24H (FP) PO SCH (08:42)
[2017-09-28] MEDS: CALCIUM ACETATE 667 MG CAPSULE (FP) PO SCH (08:42)
[2017-09-28 09:05] VITALS: BP 108/66; TEMP 98.4
[2017-09-28] MEDS: CYCLOBENZAPRINE HCL 10 MG TABLET (FP) PO SCH (09:19)
[2017-09-28] MEDS: FOLIC ACID 1 MG TABLET (FP) PO SCH (09:19)
[2017-09-28] MEDS: METOPROLOL SUCCINATE 25 MG TAB.SR.24H (FP) PO SCH (09:19)
[2017-09-28] MEDS: ASPIRIN 81 MG CHEWABLE TABLETS PO SCH (09:19)
[2017-09-28] MEDS: HEPARIN NA (PORCINE) 5,000 UNITS/ML 1ML VIAL SQ SCH (09:20)
--- NOTE | 2017-09-28 10:35 | DS ---
Physical Exam: SUBJECTIVE: Patient seen and examined. Had a bottle of rifampin at bedside, in 10/2016, pt reported he was not taking it, alerted pt of expiration and allowed for disposal of meds. Currently, denies acute issues, sob, chest pain, ready for rehab. OBJECTIVE: Vital Signs Period Temp Pulse Resp BP Sys/Anderson Pulse Ox Last 24 Hr 97.3 F-98.9 F 79-87 18-20 97-108/51-66 94-96 PE Neuro: alert, awake, cn 2-12intact Pulm: basilar crackles, + NC CV: s1 s2 rrr Abd: s nt nd + bs Ext: trace le edema HOSPITAL COURSE: Date of Admission:09/24/17 Date of Discharge: 09/28/17 Minutes to complete discharge: 37 Discharge Summary Reason For Visit: END STAGE RENAL DISEASE ON HEMODIALYSIS Current Active Problems Cocaine abuse (Acute) Diarrhea (Acute) H/O mitral valve replacement (Acute) H/O tricuspid valve replacement (Acute) History of thoracentesis (Acute) Pleural effusion due to another disorder (Acute) Pulmonary HTN (Acute) ESRD on hemodialysis (Chronic) Hospital Course: Hospital Course: Briefly, this 57 year old male with PMhx of ESRD on HD (TTS at [facility]), CHF, Hypertension, MV/TV repair, MRSA endocarditis s/p Bio AVR/MVR 2014 at [facility], polysubstance abuse, recently discharged with augmentin for oral abscess, admitted with diarrhea and missed HD and hyperkalemia, now seen with increased sob and weakness, care was resumed by [facility] hospitalist after pt request change in primary on 09/23/17. Subsequent Hospital Course/Progress Note/DC summary: Plan: 1. Acute on chronic SOB - Due to recurrent pleural effusions - s/p thoracentesis 09/24 - Pt refuses pleurx cath - Requires supplemental o2 3L 2. Persistent throat pain - Head/neck US evaluate cannot eval esophageal compression - Spoke with covering ENT MD, symptoms not acute, pt can follow up as outpt, referral enclosed - D/w pt he is aware 3. ESRD on HD with SOB/Volume overload - HD per renal, T TH Sat 4. ASD - s/p MVR/TVR due to trans-septal puncture - Evaluated at [facility] for closure after occular TIA, deemed not a candidate for closure (Dr. Washington and Dr. Mc): ongoing cocaine use, poor compliance and concomitant valve dz - ASA 5. PAF - In sinus - Toprol xl 12.5mg - Not candidate for AC per cards 6. Acute on chronic diastolic CHF - Toprol xl 12.5 mg - ASA daily 7. Hypothyroidism - Synthroid 25mcg 8. Dental f/u as outpt for dental antibiotic ppx following MVR/TVT - Has been stable off acute abx course Dispo: - SNF for rehab Condition: Stable - Instructions Diet, Activity, Other Instructions: Please return to the ED for any new persistent, or worsening symptoms. Follow up with your PCP in 1 week Resume home medications as directed Continue dialysis as scheduled Referrals: Omar Hernandez MD [Primary Care Provider] - Disposition: [facility]FWAY FACILITY - Home Medications Comprehensive Discharge Medication List: Ambulatory Orders Folic Acid 1 mg PO DAILY 09/11/16 Sevelamer Carbonate [Renvela -] 1,600 mg PO BID 09/11/16 Albuterol Sulfate 0.042% [Ventolin 0.042% (Half-Strength) -] 1 amp NEB TID PRN 04/22/17 Cyclobenzaprine HCl [Flexeril -] 10 mg PO HS 04/22/17 Acetaminophen [Tylenol .Regular Strength -] 650 mg PO Q6H PRN tablet 07/20/17 Albuterol 2.5/Ipratropium 0.5 [Duoneb -] 1 amp NEB Q4H PRN amp 07/20/17 Aspirin [ASA -] 81 mg PO DAILY tab.chew 07/20/17 Calcium Acetate [Phoslo -] 667 mg PO TIDCM capsule 07/20/17 Levothyroxine [Synthroid -] 25 mcg PO DAILY@0700 tablet 07/20/17 Metoprolol Succinate [Toprol XL -] 12.5 mg PO DAILY tab.sr.24h 07/20/17 Oxycodone HCl/Acetaminophen [Percocet 5-325 mg Tablet] 1 - 2 tab PO TID PRN #10 tab MDD 6 08/30/17 Tamsulosin HCl [Flomax -] 0.4 mg PO DAILY@0830 cap.er.24h 09/11/17 Cyclobenzaprine HCl [Flexeril -] 10 mg PO BID tablet 09/25/17 Guaifenesin [Robitussin -] 10 ml PO Q6H PRN cup 09/25/17 This patient is new to me today: No Emergency Visit: Yes ED Registration Date: 09/24/17 Care time: The patient presented to the Emergency Department on the above date and was hospitalized for further evaluation of their emergent condition. Critical Care patient: No - Discharge Referral Referred to [facility] Med P.C.: No
--- NOTE | 2017-09-28 10:56 | PN ---
Progress Note, Physician History of Present Illness: seen and examined this am. nad. no overnight events. - Current Medication List Current Medications: Active Medications Acetaminophen (Tylenol -) 650 mg PO Q6H PRN PRN Reason: FEVER Last Admin: 09/25/17 23:54 Dose: 650 mg Albuterol Sulfate (Ventolin Hfa Inhaler -) 2 puff IH Q4H PRN PRN Reason: SHORT OF BREATH/WHEEZING Last Admin: 09/27/17 09:27 Dose: 2 inh Albuterol/Ipratropium (Duoneb -) 1 amp NEB Q4H PRN PRN Reason: SHORTNESS OF BREATH Last Admin: 09/28/17 07:50 Dose: 1 amp Aspirin (Asa -) 81 mg PO DAILY [facility] Last Admin: 09/28/17 09:19 Dose: 81 mg Calcium Acetate (Phoslo -) 667 mg PO TIDCM [facility] Last Admin: 09/28/17 08:42 Dose: 667 mg Cyclobenzaprine HCl (Flexeril -) 10 mg PO BID [facility] Last Admin: 09/28/17 09:19 Dose: 10 mg Folic Acid (Folic Acid -) 1 mg PO DAILY [facility] Last Admin: 09/28/17 09:19 Dose: 1 mg Guaifenesin (Robitussin -) 10 ml PO Q6H PRN PRN Reason: COUGH Last Admin: 09/27/17 06:01 Dose: 10 ml Heparin Sodium (Porcine) (Heparin -) 5,000 unit SQ BID [facility] Last Admin: 09/28/17 09:20 Dose: Not Given Levothyroxine Sodium (Synthroid -) 25 mcg PO DAILY@0700 [facility] Last Admin: 09/28/17 06:17 Dose: 25 mcg Metoprolol Succinate (Toprol Xl -) 12.5 mg PO DAILY [facility] Last Admin: 09/28/17 09:19 Dose: 12.5 mg Oxycodone HCl (Roxicodone -) 5 mg PO Q4H PRN PRN Reason: PAIN LEVEL 6-10 Last Admin: 09/27/17 23:44 Dose: 5 mg Tamsulosin HCl (Flomax -) 0.4 mg PO DAILY@0830 [facility] Last Admin: 09/28/17 08:42 Dose: 0.4 mg - Objective Vital Signs: Vital Signs Temperature 98.4 F 09/28/17 09:02 Pulse Rate 87 01/22/18 09:02 Respiratory Rate 18 09/28/17 09:02 Blood Pressure 108/66 09/28/17 09:02 O2 Sat by Pulse Oximetry (%) 94 L 09/28/17 10:29 Constitutional: Yes: No Distress, Calm Cardiovascular: Yes: Regular Rate and Rhythm, Murmur, S1, S2. No: Bradycardia, Tachycardia, Pulse Irregular, Bruit, JVD, Gallop, Rub, S3, S4, Varicosities Respiratory: Yes: Regular, Diminished. No: Rales, Rhonchi, SOB, Wheezes Gastrointestinal: Yes: Normal Bowel Sounds, Soft. No: Distention, Tenderness Edema: No Neurological: Yes: Alert, Oriented Psychiatric: Yes: Alert, Oriented Labs: CBC, BMP 09/24/17 10:00 09/26/17 07:00 INR, PTT INR 1.26 (0.82-1.09) H 09/24/17 10:00 - ....Imaging Chest X-ray: Report Reviewed, Image Reviewed EKG: Report Reviewed, Image Reviewed Other: Report Reviewed, Image Reviewed Assessment/Plan IMP: SOB, Pleural effusions ASD PAF NSVT REC: 1. SOB-Recurrent Pleural effusions -s/p thoracentesis with 1.6L removed, symptomatic improvement -volume removal with HD as tolerates 2. ASD: -s/p MVR/TVR due to trans-septal puncture -Evaluated at [facility] for closure after occular TIA, deemed not a candidate for closure (Dr. Washington and Dr. Mc): ongoing cocaine use, poor compliance and concomitant valve dz -cont ASA 81mg daily -no sig change on recent echo 3. PAF:NSR currently -Cont Toprol, not candidate for full AC due to poor compliance, drug use -HR control -cont ASA 81mg daily 4. NSVT:during prior admissions -h/o non-obs CAD and normal LV systolic function -cont Toprol -Keep K and Mg wnl Ok for discharge to rehab from cardiac standpoint with outpatient f.up
--- NOTE | 2017-09-28 14:46 | PATH ---
Cytology Non-Gynecological Report Patient Name: ELOY FENG JR [facility]. Rec. #: [id number] /Age/Gender: 1960 (Age: 57) / M Account: [id number] Location: [address] [place] [address]/[facility] Taken: 09/24/2017 Received: 09/25/2017 Reported: 09/28/2017 Physicians: Shania Gee M.D. Specimen(s) Received A: LEFT PLEURAL FLUID B: LEFT PLEURAL FLUID Clinical History Pleural effusion Final Diagnosis A & B. PLEURAL FLUID, LEFT, THORACENTESIS: SATISFACTORY FOR EVALUATION NO MALIGNANT CELLS IDENTIFIED. MESOTHELIAL CELLS PRESENT. Electronically Signed Shona Perez M.D. Gross Description A. Approximately 50 cc of yellow fluid received fixed in 50% alcohol. Two cytofunnels and one cellblock prepared. B. Approximately 2500 cc of yellow fluid received fresh. Two cytofunnels and one cellblock prepared.
== END 2017-09-28 12:32 | DRG 194 ==
LOC: JER 11:11 → INTOOBSV 16:07 → UNDOADMOB 16:07 → JERBED 16:07 → J5S 09-21 13:45 → OBSVTOIN 09-24 10:15
PROVIDERS: ADMIT Internal Medicine; ATTEND Nurse Practitioner Acute Care
PROC: 5A1D70Z Performance of Urinary Filtration, Intermittent, Less than 6 Hours Per Day (ICD-10-PCS; 2017-09-21)
PROC: 0W9B3ZX Drainage of Left Pleural Cavity, Percutaneous Approach, Diagnostic (ICD-10-PCS; principal; 2017-09-24)
DX: I13.2 Hypertensive heart and chronic kidney disease with heart failure and with stage 5 chronic kidney disease, or end stage renal disease (principal); J90 Pleural effusion, not elsewhere classified; R19.7 Diarrhea, unspecified; E87.5 Hyperkalemia; R07.0 Pain in throat; I48.91 Unspecified atrial fibrillation; N18.6 End stage renal disease; I50.33 Acute on chronic diastolic (congestive) heart failure; E03.9 Hypothyroidism, unspecified; E78.5 Hyperlipidemia, unspecified; I34.0 Nonrheumatic mitral (valve) insufficiency; I27.20 Pulmonary hypertension, unspecified; J44.9 Chronic obstructive pulmonary disease, unspecified; M75.52 Bursitis of left shoulder; B19.20 Unspecified viral hepatitis C without hepatic coma; K59.09 Other constipation; F14.10 Cocaine abuse, uncomplicated; F12.10 Cannabis abuse, uncomplicated; F17.200 Nicotine dependence, unspecified, uncomplicated; I47.2 Ventricular tachycardia; K04.7 Periapical abscess without sinus; D63.1 Anemia in chronic kidney disease; I95.9 Hypotension, unspecified; Z95.2 Presence of prosthetic heart valve; Z99.2 Dependence on renal dialysis; Z99.81 Dependence on supplemental oxygen
CPT/HCPCS: 36415; 71045-TC; 76536-TC; 76942; 80048; 80053; 82042; 82150; 82945; 83615; 84100; 84157; 84311; 84478; 85025; 85027; 85610; 86704; 86706; 86708; 86803; 87040; 87045; 87046; 87070; 87075; 87102; 87116; 87205; 87206; 87210; 87324; 87340; 87449; 87899; 88108; 88305-TC; 89051; 93005; 93010; 94640; 97116-GP; 97161-GP; 99284-25; G0378; J1644

== ENCOUNTER 2017-11-08 16:24 | Inpatient (IN) | payer OTHER ==
[2017-11-08 16:41] VITALS: BMI 21.2
[2017-11-08 18:12] LABS: BASO % 1.1 % (0-2.0); EOS % 2.9 % (0-4.5); HEMATOCRIT 43.2 % (35.4-49); HEMOGLOBIN 13.9 GM/dL (11.7-16.9); LYMPH % 7.4 % (8-40); MCHC 32.1 g/dl (32.0-35.9); MEAN PLT VOLUME 10.3 fl (7.5-11.1); MONO % 8.5 % (3.8-10.2); NEUT % 80.1 % (42.8-82.8); PLATELET COUNT 174 K/MM3 (134-434); RBC 4.33 M/mm3 (4.00-5.60); RDW 20.1 % (11.9-15.9); WHITE BLOOD COUNT 4.4 K/mm3 (4.0-10.0)
[2017-11-08 18:27] LABS: INR 1.16 (0.82-1.09); PROTHROMBIN TIME (PATIENT) 13.1 SEC (9.98-11.88)
[2017-11-08 18:39] LABS: ALBUMIN 1.7 g/dl (3.4-5.0); ANION GAP 15 (8-16); BILIRUBIN,TOTAL 0.4 mg/dL (0.2-1.0); BLOOD UREA NITROGEN 61 mg/dL (7-18); CALCIUM 7.8 mg/dL (8.5-10.1); CHLORIDE 108 mmol/L (98-107); CO2 19 mmol/L (21-32); GLUCOSE,RANDOM 99 mg/dL (74-106); POTASSIUM 4.2 mmol/L (3.5-5.1); SGOT/AST 26 U/L (15-37); SGPT/ALT 24 U/L (12-78); SODIUM 142 mmol/L (136-145); TOT PROT 4.5 g/dl (6.4-8.2)
[2017-11-08 18:44] LABS: ALK PHOS 82 U/L (45-117)
--- NOTE | 2017-11-08 18:44 | PDOC ---
History of Present Illness - History of Present Illness Initial Comments: 11/08/17 18:47 Patient is a 57-year-old male past medical history of NIDDM, ESRD, on dialysis Saturdays, missed dialysis on Thursday because patient states he didn't feel well, anemia, asthma, COPD, hypertension, hyperlipidemia, cardiac valve replacement, endocarditis, status post recent admission for left- sided facial swelling presents to the emergency department today with increased left-sided facial swelling. Pt. states he had congestion and states he felt he had a sinus infection. Patient states that he has had left-sided facial swelling for about a month however today he woke up with his eye grossly swollen shut with yellowish discharge. He states he also feels like the left side of his face is more swollen than it is in the past. Patient also states that when EMS arrived he felt short of breath however this resolved with one Combivent. No complaints at this time regarding his breathing in the emergency department. Denies fevers, chills, cough, chest pain, nausea, vomiting, diarrhea , frequency, urgency, hematuria. PMD: Omar Hernandez Tax Processor: Dr. Reese <Katie Abad - Last Filed: 11/09/17 16:10> <Shania Jiang - Last Filed: 11/11/17 09:43> - General Chief Complaint: Shortness of Breath Stated Complaint: SOB Time Seen by Provider: 11/08/17 16:35 Past History - Travel Traveled outside of the country in the last 30 days: No Close contact w/someone who was outside of country & ill: No - Past Medical History Anemia: Yes Asthma: Yes Cancer: No Cardiac Disorders: Yes (2X VALVE REPLACEMENT,endocarditis) CVA: No COPD: Yes CHF: No Dementia: No Diabetes: No Dialysis: Yes () GI Disorders: Yes Disorders: Yes (ENLARGED PROSTATE) HTN: (LOW BP) Hypercholesterolemia: Yes Liver Disease: No Seizures: No Thyroid Disease: No - Surgical History Abdominal Surgery: No Appendectomy: No Cardiac Surgery: Yes (2 VALVES REPLACED 04/2015) Cholecystectomy: No Lung Surgery: Yes (h/o MRSA pleural tissue) Neurologic Surgery: No Orthopedic Surgery: No - Immunization History Immunization Up to Date: No - Suicide/Smoking/Psychosocial Hx Smoking Status: Yes Smoking History: Never smoked Have you smoked in the past 12 months: Yes Number of Cigarettes Smoked Daily: 3 Information on smoking cessation initiated: No 'Breaking Loose' booklet given: 09/10/17 Hx Alcohol Use: No Drug/Substance Use Hx: No Substance Use Type: None Hx Substance Use Treatment: Yes (rehab, detox) <Katie Abad - Last Filed: 11/09/17 16:10> <Shania Jiang - Last Filed: 11/11/17 09:43> - Past Medical History Allergies/Adverse Reactions: Allergies Allergy/AdvReac Type Severity Reaction Status Date / Time Iodinated Contrast- Oral and Allergy Verified 11/08/17 16:40 IV Dye CONTRAST Allergy Hives Uncoded 11/08/17 16:40 Home Medications: Ambulatory Orders Folic Acid 1 mg PO DAILY 09/11/16 Sevelamer Carbonate [Renvela -] 1,600 mg PO BID 09/11/16 Albuterol Sulfate 0.042% [Ventolin 0.042% (Half-Strength) -] 1 amp NEB TID PRN 04/22/17 Cyclobenzaprine HCl [Flexeril -] 10 mg PO HS 04/22/17 Acetaminophen [Tylenol .Regular Strength -] 650 mg PO Q6H PRN tablet 07/20/17 Albuterol 2.5/Ipratropium 0.5 [Duoneb -] 1 amp NEB Q4H PRN amp 07/20/17 Aspirin [ASA -] 81 mg PO DAILY tab.chew 07/20/17 Calcium Acetate [Phoslo -] 667 mg PO TIDCM capsule 07/20/17 Levothyroxine [Synthroid -] 25 mcg PO DAILY@0700 tablet 07/20/17 Metoprolol Succinate [Toprol XL -] 12.5 mg PO DAILY tab.sr.24h 07/20/17 Oxycodone HCl/Acetaminophen [Percocet 5-325 mg Tablet] 1 - 2 tab PO TID PRN #10 tab MDD 6 08/30/17 Tamsulosin HCl [Flomax -] 0.4 mg PO DAILY@0830 cap.er.24h 09/11/17 Cyclobenzaprine HCl [Flexeril -] 10 mg PO BID tablet 09/25/17 Guaifenesin [Robitussin -] 10 ml PO Q6H PRN cup 09/25/17 Review of Systems - Review of Systems Able to Perform ROS?: Yes Comments:: 11/08/17 18:48 CONSTITUTIONAL: Absent: fever, chills, diaphoresis, generalized weakness, malaise, loss of appetite HEENT: Present: L facial swelling with L eye swelled shut. Absent: rhinorrhea, nasal congestion, throat pain, throat swelling, difficulty swallowing, mouth swelling , ear pain, eye pain, visual Changes CARDIOVASCULAR: Absent: chest pain, loss of consciousness, palpitations, irregular heart rate, peripheral edema RESPIRATORY: Absent: cough, shortness of breath, dyspnea with exertion, orthopnea, wheezing, stridor, hemoptysis GASTROINTESTINAL: Absent: abdominal pain, abdominal distension, nausea, vomiting, diarrhea, constipation, melena, hematochezia GENITOURINARY: Absent: dysuria, frequency, urgency, hesitancy, hematuria, flank pain, genital pain MUSCULOSKELETAL: Absent: myalgia, arthralgia, joint swelling SKIN: Absent: rash, itching, pallor HEMATOLOGIC/IMMUNOLOGIC: Absent: easy bleeding, easy bruising, lymphadenopathy, frequent infections ENDOCRINE: Absent: unexplained weight gain, unexplained weight loss, heat intolerance, cold intolerance NEUROLOGIC: Absent: headache, focal weakness or paresthesias, dizziness, unsteady gait, seizure, mental status changes, bladder or bowel incontinence PSYCHIATRIC: Absent: anxiety, depression, suicidal or homicidal ideation, hallucinations. Is the patient limited Maori proficient: No <Katie Abad - Last Filed: 11/09/17 16:10> *Physical Exam - Vital Signs Last Vital Signs Temp Pulse Resp BP Pulse Ox 98.4 F 86 14 116/84 93 L 11/08/17 16:25 11/08/17 16:25 11/08/17 16:25 11/08/17 16:25 11/08/17 16:25 - Physical Exam Comments: 11/08/17 18:50 GENERAL: Well developed, well nourished. Awake and alertx3. No acute distress. Speaking in full sentences. Gross L eye swelling HEENT: L face moderately swollen. L eye swollen shut with yellow discharge. Normocephalic, atraumatic. PERRLA, EOMI. No conjunctival pallor. Sclera are non- icteric. Moist mucous membranes. Oropharynx is clear. NECK: Supple. Full ROM. No JVD. Carotid pulses 2+ and symmetric, without bruits. No thyromegaly. No lymphadenopathy. CARDIOVASCULAR: Regular rate and rhythm. No murmurs, rubs, or gallops. Distal pulses are 2+ and symmetric. PULMONARY: No evidence of respiratory distress. Lungs clear to auscultation bilaterally. No wheezing, rales or rhonchi. ABDOMINAL: Soft. Non-tender. Non-distended. No rebound or guarding. No organomegaly. Normoactive bowel sounds. MUSCULOSKELETAL Normal range of motion at all joints. No bony deformities or tenderness. No CVA tenderness. EXTREMITIES: No cyanosis. No clubbing. No edema. No calf tenderness. SKIN: Warm and dry. Normal capillary refill. No rashes. No jaundice. NEUROLOGICAL: Alert, awake, appropriate. Cranial nerves 2-12 intact. No deficits to light touch and temperature in face, upper extremities and lower extremities. No motor deficits in the in face, upper extremities and lower extremities. Normoreflexic in the upper and lower extremities. Normal speech. Toes are down- going bilaterally. Gait is normal without ataxia. PSYCHIATRIC: Cooperative. Good eye contact. Appropriate mood and affect. <Katie Abad - Last Filed: 11/09/17 16:10> - Vital Signs Last Vital Signs Temp Pulse Resp BP Pulse Ox 97.9 F 80 20 104/66 95 11/11/17 07:36 11/11/17 07:36 11/11/17 07:40 11/11/17 07:36 11/11/17 07:40 <Shania Jiang - Last Filed: 11/11/17 09:43> ED Treatment Course - LABORATORY CBC & Chemistry Diagram: 11/09/17 11:50 11/09/17 11:50 - ADDITIONAL ORDERS Additional order review: 11/08/17 18:00 RBC 4.33 MCV 100.0 H MCHC 32.1 RDW 20.1 H MPV 10.3 Neutrophils % 80.1 Lymphocytes % 7.4 L Monocytes % 8.5 Eosinophils % 2.9 Basophils % 1.1 - RADIOLOGY Radiology Studies Ordered: Category Date Time Status FACIAL BONES CT W/O CONTRAST [CT] Stat CT Scan 11/08/17 16:59 Taken CHEST X-RAY PORTABLE* [RAD] Stat Radiology 11/08/17 17:02 Taken <Katie Abad - Last Filed: 11/09/17 16:10> - LABORATORY CBC & Chemistry Diagram: 11/09/17 11:50 11/09/17 11:50 - ADDITIONAL ORDERS Additional order review: 11/08/17 18:00 Blood Culture - Preliminary Blood - Peripheral Venous NO GROWTH OBTAINED AFTER 48 HOURS, INCUBATION TO CONTINUE FOR 3 DAYS. 11/08/17 18:00 Blood Culture - Preliminary Blood - Peripheral Venous NO GROWTH OBTAINED AFTER 48 HOURS, INCUBATION TO CONTINUE FOR 3 DAYS. 11/08/17 18:00 RBC 4.33 MCV 100.0 H MCHC 32.1 RDW 20.1 H MPV 10.3 Neutrophils % 80.1 Lymphocytes % 7.4 L Monocytes % 8.5 Eosinophils % 2.9 Basophils % 1.1 - Medications Given in the ED: ED Medications Discontinued Medications Generic Name Dose Route Start Last Admin Trade Name Freq PRN Reason Stop Dose Admin Albumin Human 12.5 gm 11/10/17 15:30 11/10/17 17:00 Albumin Human 25% IVPB 11/10/17 17:01 12.5 gm Q30M MONAE Administration Alteplase, Recombinant 4 mg 11/11/17 07:30 11/11/17 08:29 Cathflo Activase - CVP 11/11/17 07:31 4 mg ONCE ONE Administration Aspirin 325 mg 11/08/17 21:06 11/08/17 21:25 Asa - PO 11/08/17 21:07 Not Given ONCE ONE Vancomycin HCl 1,000 mg/ 250 mls @ 250 mls/hr 11/08/17 18:59 11/08/17 20:14 Dextrose IVPB 11/08/17 19:58 250 mls/hr ONCE ONE Administration Protocol Ceftriaxone Sodium 2 gm/ 100 mls @ 200 mls/hr 11/08/17 19:03 11/08/17 21:26 Dextrose IVPB 11/08/17 19:32 Not Given ONCE ONE Clindamycin Phosphate 600 mg in 50 mls @ 100 mls/hr 11/08/17 19:34 11/08/17 21:24 Cleocin 600 Mg Premix Ivpb - IVPB 11/08/17 20:03 100 mls/hr ONCE ONE Administration CEFTRIAXONE 1 G/50 ML PREMIX 50 mls @ 100 mls/hr 11/09/17 10:00 03/05/18 09: 44 Ceftriaxone 1 Gm-D5w Bag IVPB 100 mls/hr DAILY MONAE Administration Clindamycin Phosphate 600 mg in 50 mls @ 100 mls/hr 11/09/17 10:00 11/09/17 09:44 Cleocin 600 Mg Premix Ivpb - IVPB 100 mls/hr Q8H-IV [facility]AE Administration Vancomycin HCl 1,000 mg/ 250 mls @ 166.667 mls/hr 11/10/17 17:00 11/10/17 23: 43 Dextrose IVPB 11/10/17 18:29 166.667 mls/hr ONCE ONE Administration Protocol Sodium Chloride 250 mls @ 3,000 mls/hr 11/10/17 17:00 11/10/17 17:29 Normal Saline - IV 11/10/17 17:04 3,000 mls/hr ONCE ONE Administration <Shania Jiang - Last Filed: 11/11/17 09:43> Medical Decision Making - Medical Decision Making 11/08/17 18:55 Patient is a 57-year-old male past medical history of NIDDM, ESRD, on dialysis Saturdays, missed dialysis on Thursday because patient states he didn't feel well, anemia, asthma, COPD, hypertension, hyperlipidemia, cardiac valve replacement, endocarditis, status post recent admission for left- sided facial swelling presents to the emergency department today with increased left-sided facial swelling. Given increase in facial swelling, concerned for orbital cellulitis vs venous sinus thrombosis. Will order basic labs, EKG, CXR, CT facial bones, IVABX. Re-evaluate. 11/08/17 18:58 Sign out given to BEVERLEY De Anda. Pt. pending labs, CT read and dispo. <Katie Abad - Last Filed: 11/09/17 16:10> *DC/Admit/Observation/Transfer - Discharge Dispostion Admit: Yes <Katie Abad - Last Filed: 11/09/17 16:10> - Attestations Physician Attestion: I reviewed the case with the mid-level practitioner and agree with the mid- level practitioner's assessment, diagnosis and disposition. <Shania Jiang - Last Filed: 11/11/17 09:43> Diagnosis at time of Disposition: ESRD on hemodialysis, Dental abscess, Cellulitis of face CHF (congestive heart failure), NYHA class II Qualifiers: Congestive heart failure type: systolic Congestive heart failure chronicity: unspecified Qualified Code(s): I50.20 - Unspecified systolic (congestive) heart failure - Discharge Dispostion Condition at time of disposition: Stable
[2017-11-08] MEDS ORDERED: VANCOMYCIN 1,000 MG in DEXTROSE 5%-WATER - 250 ML IVPB ONE (18:59)
[2017-11-08] MEDS ORDERED: CEFTRIAXONE 2 GM in DEXTROSE 5%-WATER - 100 ML IVPB ONE (19:03)
[2017-11-08 19:06] LABS: CREATININE 10.4 mg/dL (0.7-1.3)
[2017-11-08] MEDS ORDERED: CLINDAMYCIN 600MG PREMIX IVPB 600 MG/50 ML BAG IVPB ONE ×2 (19:34→21:33)
--- NOTE | 2017-11-08 19:35 | PDOC ---
*Physical Exam - Vital Signs Last Vital Signs Temp Pulse Resp BP Pulse Ox 98.4 F 86 14 116/84 93 L 11/08/17 16:25 11/08/17 16:25 11/08/17 16:25 11/08/17 16:25 11/08/17 16:25 ED Treatment Course - LABORATORY CBC & Chemistry Diagram: 11/08/17 18:00 11/08/17 18:00 - ADDITIONAL ORDERS Additional order review: Laboratory Results 11/08/17 11/08/17 11/08/17 18:00 18:00 18:00 PT with INR 13.10 H INR 1.16 H Sodium 142 Potassium 4.2 Chloride 108 H Carbon Dioxide 19 L D Anion Gap 15 BUN 61 H D Creatinine 10.4 H* Creat Clearance w eGFR 5.20 Random Glucose 99 Calcium 7.8 L Total Bilirubin 0.4 D AST 26 D ALT 24 Alkaline Phosphatase 82 Total Protein 4.5 L Albumin 1.7 L Blood Type O POSITIVE Antibody Screen Negative 11/08/17 18:00 RBC 4.33 MCV 100.0 H MCHC 32.1 RDW 20.1 H MPV 10.3 Neutrophils % 80.1 Lymphocytes % 7.4 L Monocytes % 8.5 Eosinophils % 2.9 Basophils % 1.1 Medical Decision Making - Medical Decision Making 11/08/17 19:27 endorsed to me to follow ct scan and disposition CT noted below Patient Full Name: JUNG LYONS Patient Accession No: [id number] Patient : [id number] Reason for Exam: lt sided facial swelling Referring Physician: DONNELL FREY Patient Name: ELOY FENG THIS IS A PRELIMINARY REPORT FROM [facility] DATE OF SERVICE: 2017-11-08 18:10:23 IMAGES: [id number] EXAM: FACIAL BONES CT W/O CONTRAST HISTORY: Left sided facial swelling COMPARISON: None. FINDINGS: There is edema in the superficial left facial soft tissues extending from the level of the orbit to the submandibular region. Cellulitis is suspected. Extensive dental disease with a cortical erosion and small collection along the left anterior mandible measuring 0.9 x 0.8 x 0.8 cm concerning for dental abscess The orbits and globes are intact. The retrobulbar spaces are clear The paranasal sinuses and mastoid air cells are clear THIS DOCUMENT HAS BEEN ELECTRONICALLY SIGNED Eduardo Pastrana MD 11/08/2017 18:58 EST Torres Please call [facility] [phone] with questions. INTERPRETING RADIOLOGIST: Eduardo Pastrana MD Electronically Signed: Nov 08, 2017 07:01PM EST 11/08/17 19:35 Cultures done will give Clindamycin 600mg IV and Vancomycin 1 gm IV EKG sr rate 82, RAD, PVC, poor baseline will admit for IV antibx. 11/08/17 19:45 Patient seen an evaluated, missed dialysis on Thursday, HD T, Th, Sat P/E lung b/l rales cxr increased marking will put patient on BiPAP add to lab trop, bnp 11/08/17 20:40 patient requesting to have his issues addressed in terms of his hernia, and graft for HD consult Dr. Handley, Dr Ryo, Dr. Briones for renal. 11/08/17 21:07 trop elevate given asa 325mg po *DC/Admit/Observation/Transfer Diagnosis at time of Disposition: ESRD on hemodialysis, Dental abscess, Cellulitis of face CHF (congestive heart failure), NYHA class II Qualifiers: Congestive heart failure type: systolic Congestive heart failure chronicity: unspecified Qualified Code(s): I50.20 - Unspecified systolic (congestive) heart failure - Discharge Dispostion Condition at time of disposition: Stable Admit: Yes - Referrals - Patient Instructions - Post Discharge Activity
[2017-11-08] MEDS ORDERED: VANCOMYCIN 1 GRAM (PRE-DOCKED) 1,000 MG/250 ML BAG IVPB ONE (20:16)
[2017-11-08 20:39] LABS: N-TERMINAL BNP 25465.04 pg/ml (5-125)
[2017-11-08] MEDS ORDERED: ASPIRIN 325 MG TABLET PO ONE (21:06)
[2017-11-09] MEDS: ALBUTEROL SO4 2.5/IPRATROPIUM 0.5 INH SOL 3 ML VIAL.NEB. NEB PRN ×2 (05:24→09:12)
[2017-11-09] MEDS: LEVOTHYROXINE NA 25 MCG TABLET (FP) PO SCH (06:14)
[2017-11-09] MEDS: TAMSULOSIN HCL 0.4 MG CAP.ER.24H (FP) PO SCH (08:52)
[2017-11-09] MEDS: SEVELAMER CARBONATE 800 MG TAB (FP) PO SCH ×2 (08:52→18:22)
[2017-11-09] MEDS: CALCIUM ACETATE 667 MG CAPSULE (FP) PO SCH ×3 (08:52→18:22)
[2017-11-09] MEDS: ASPIRIN 81 MG CHEWABLE TABLETS PO SCH (09:39)
[2017-11-09] MEDS: metoPROLOL SUCCINATE 25 MG TAB.SR.24H (FP) PO SCH (09:43)
[2017-11-09] MEDS: HEPARIN NA (PORCINE) 5,000 UNITS/ML 1ML VIAL SQ SCH ×2 (09:44→22:00)
[2017-11-09] MEDS: FOLIC ACID 1 MG TABLET (FP) PO SCH (09:44)
[2017-11-09] MEDS ORDERED: CLINDAMYCIN 600MG PREMIX IVPB 600 MG/50 ML BAG IVPB SCH (10:00)
[2017-11-09] MEDS ORDERED: CEFTRIAXONE 1 G/50 ML PREMIX 50 ML IVPB SCH (10:00)
[2017-11-09] MEDS ORDERED: ALBUMIN HUMAN 25% 12.5 GM/50 ML VIAL IVPB SCH (10:30)
--- NOTE | 2017-11-09 10:40 | CONSULT ---
Consult - History of Present Illness History of Present Illness: Patient known to me with complicated dialysis access history currently awaiting new access in left arm. He is admitted after skipping dialysis Thursday. I will follow and plan access surgery when cleared by Medicine and cardiology. - Past Medical History Cardio/Vascular: Yes: CHF (Chronic diastolic HF, Severe Pulm HTN), HTN, Hyperlipdemia, Mitral Insufficiency (s/p MVR (bio)), Pulmonary Hypertension, Other (Severe Tricuspid regurgitation, Endocarditis s/p TVR/MVR, recurrent bacteremia) Pulmonary: Yes: Other (PHTN) Gastrointestinal: Yes: Ascites, Constipation Hepatobiliary: Yes: Hepatitis C Renal/: Yes: Renal Failure, Hemodialysis Psych: Yes: Addictions Musculoskeletal: Yes: Bursitis (left shoulder pain) - Past Surgical History Past Surgical History: Yes: AV Fistula/Graft, Hernia Repair (11/19) - Alcohol/Substance Use Hx Alcohol Use: No History of Substance Use: reports: Cocaine (last use 2 weeks ago), Marijuana - Smoking History Smoking history: Former smoker Have you smoked in the past 12 months: No Aproximately how many cigarettes per day: 3 - Social History Usual Living Arrangement: With Significant Other ADL: Independent 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 History of Recent Travel: No Home Medications - Allergies Allergies/Adverse Reactions: Allergies Allergy/AdvReac Type Severity Reaction Status Date / Time Iodinated Contrast- Oral and Allergy Verified 11/08/17 16:40 IV Dye CONTRAST Allergy Hives Uncoded 11/08/17 16:40 - Home Medications Home Medications: Ambulatory Orders Folic Acid 1 mg PO DAILY 09/11/16 Sevelamer Carbonate [Renvela -] 1,600 mg PO BID 09/11/16 Albuterol Sulfate 0.042% [Ventolin 0.042% (Half-Strength) -] 1 amp NEB TID PRN 04/22/17 Cyclobenzaprine HCl [Flexeril -] 10 mg PO HS 04/22/17 Acetaminophen [Tylenol .Regular Strength -] 650 mg PO Q6H PRN tablet 07/20/17 Albuterol 2.5/Ipratropium 0.5 [Duoneb -] 1 amp NEB Q4H PRN amp 07/20/17 Aspirin [ASA -] 81 mg PO DAILY tab.chew 07/20/17 Calcium Acetate [Phoslo -] 667 mg PO TIDCM capsule 07/20/17 Levothyroxine [Synthroid -] 25 mcg PO DAILY@0700 tablet 07/20/17 Metoprolol Succinate [Toprol XL -] 12.5 mg PO DAILY tab.sr.24h 07/20/17 Oxycodone HCl/Acetaminophen [Percocet 5-325 mg Tablet] 1 - 2 tab PO TID PRN #10 tab MDD 6 08/30/17 Tamsulosin HCl [Flomax -] 0.4 mg PO DAILY@0830 cap.er.24h 09/11/17 Cyclobenzaprine HCl [Flexeril -] 10 mg PO BID tablet 09/25/17 Guaifenesin [Robitussin -] 10 ml PO Q6H PRN cup 09/25/17 Family Disease History - Family Disease History Family Disease History: Other: Father ( of kidney failure), Mother (muscle problems), Sister (healthy and living, HTN) Physical Exam Vital Signs: Vital Signs Temperature 98.9 F 11/09/17 06:00 Pulse Rate 74 11/09/17 08:28 Respiratory Rate 18 11/09/17 06:00 Blood Pressure 110/71 11/09/17 06:00 O2 Sat by Pulse Oximetry (%) 92 L 11/09/17 08:28 Labs: CBC, BMP 11/08/17 18:00 11/08/17 18:00
--- NOTE | 2017-11-09 10:45 | EKG ---
Test Reason : Blood Pressure : / mmHG Vent. Rate : 082 BPM Atrial Rate : 082 BPM P-R Int : 184 ms QRS Dur : 076 ms QT Int : 418 ms P-R-T Axes : 041 137 082 degrees QTc Int : 488 ms SINUS RHYTHM WITH OCCASIONAL PREMATURE VENTRICULAR COMPLEXES RIGHT AXIS DEVIATION CANNOT RULE OUT ANTEROSEPTAL INFARCT (CITED ON OR BEFORE 19-AUG-2017) ABNORMAL ECG WHEN COMPARED WITH ECG OF 20-SEP-2017 13:57, PREMATURE VENTRICULAR COMPLEXES ARE NOW PRESENT Confirmed by YARI CARR MD ([id number]) on 11/09/2017 10:45:37 AM Referred By: Confirmed By:YARI CARR MD
--- NOTE | 2017-11-09 11:01 | PN ---
Progress Note, Physician History of Present Illness: 57 year old man with a complicated pmh as previously extensively documented including multiple valvular surgeries due to endocarditis, residual ASD, Pafib, NSVT, ocular TIA, ESRD on HD, known difficulty with hypotension during HD, dental abscess, substance abuse, awaiting new HD vascular access, now admitted for worsening facial swelling secondary to dental abscess and incidentally missed his HD on thursday and thus has degree of pulmonary vascular congestion. Pt seen and examined today in nad. Denies any chest pain, mild sob, no pnd, orthopnea. - Current Medication List Current Medications: Active Medications Albumin Human (Albumin Human 25%) 12.5 gm IVPB Q30M [facility] Albuterol/Ipratropium (Duoneb -) 1 amp NEB Q4H PRN PRN Reason: SHORTNESS OF BREATH Last Admin: 11/09/17 09:12 Dose: 1 amp Aspirin (Asa -) 81 mg PO DAILY [facility] Last Admin: 11/09/17 09:39 Dose: 81 mg Calcium Acetate (Phoslo -) 667 mg PO TIDCM [facility] Last Admin: 11/09/17 08:52 Dose: 667 mg Folic Acid (Folic Acid -) 1 mg PO DAILY [facility] Last Admin: 11/09/17 09:44 Dose: 1 mg Heparin Sodium (Porcine) (Heparin -) 5,000 unit SQ BID [facility] Last Admin: 11/09/17 09:44 Dose: Not Given CEFTRIAXONE 1 G/50 ML PREMIX (Ceftriaxone 1 Gm-D5w Bag) 50 mls @ 100 mls/hr IVPB DAILY [facility] Last Admin: 11/09/17 09:44 Dose: 100 mls/hr Clindamycin Phosphate (Cleocin 600 Mg Premix Ivpb -) 600 mg in 50 mls @ 100 mls /hr IVPB Q8H-IV [facility] Last Admin: 11/09/17 09:44 Dose: 100 mls/hr Levothyroxine Sodium (Synthroid -) 25 mcg PO DAILY@0700 [facility] Last Admin: 11/09/17 06:14 Dose: 25 mcg Metoprolol Succinate (Toprol Xl -) 12.5 mg PO DAILY [facility] Last Admin: 11/09/17 09:43 Dose: 12.5 mg Sevelamer Carbonate (Renvela -) 1,600 mg PO BIDWM [facility] Last Admin: 11/09/17 08:52 Dose: 1,600 mg Tamsulosin HCl (Flomax -) 0.4 mg PO DAILY@0830 [facility] Last Admin: 11/09/17 08:52 Dose: 0.4 mg - Objective Vital Signs: Vital Signs Temperature 98.9 F 11/09/17 06:00 Pulse Rate 74 11/09/17 08:28 Respiratory Rate 18 11/09/17 06:00 Blood Pressure 110/71 11/09/17 06:00 O2 Sat by Pulse Oximetry (%) 92 L 11/09/17 08:28 Constitutional: Yes: No Distress, Calm Eyes: Yes: Conjunctiva Clear, EOM Intact, PERRL HENT: Yes: Atraumatic, Other (facial swelling) Neck: Yes: Supple Cardiovascular: Yes: Regular Rate and Rhythm, Murmur, S1, S2. No: Bradycardia, Tachycardia, Pulse Irregular, Bruit, JVD, Gallop, Rub, S3, S4, Varicosities Respiratory: Yes: Regular, Diminished, Rales. No: Rhonchi, SOB, Wheezes Gastrointestinal: Yes: Normal Bowel Sounds, Soft. No: Distention, Tenderness Musculoskeletal: Yes: Muscle Weakness Edema: No Neurological: Yes: Alert, Oriented Psychiatric: Yes: Alert, Oriented Labs: CBC, BMP 11/08/17 18:00 11/08/17 18:00 INR, PTT INR 1.16 (0.82-1.09) H 11/08/17 18:00 - ....Imaging Chest X-ray: Report Reviewed, Image Reviewed EKG: Report Reviewed, Image Reviewed (NSR 82bpm, antsept infarct, nsst, pvc) Other: Report Reviewed, Image Reviewed (tele-nsr, pvcs, multiple short episodes NSVT) Assessment/Plan 57 year old man with a complicated pmh as previously extensively documented including multiple valvular surgeries due to endocarditis, residual ASD, Pafib, NSVT, ocular TIA, ESRD on HD, known difficulty with hypotension during HD, dental abscess, substance abuse, awaiting new HD vascular access, now admitted for worsening facial swelling secondary to dental abscess and incidentally missed his HD on thursday and thus has degree of pulmonary vascular congestion. IMP: Dental abscess SOB, Pleural effusions ASD PAF NSVT REC: Dental abscess -ENT evaluation -Abx as indicated Preop for Vascular access for HD -Pt is a high risk patient but there is currently no absolute cardiac contraindication to having vascular access performed. However, would consider that he might have an active dental abscess and thus consider optimal timing of the procedure. SOB-Recurrent Pleural effusions, current mild pulm edema likely a combination of factors including missing HD on thursday -s/p thoracentesis last admission with symptomatic improvement -volume removal with HD as tolerates ASD: -s/p MVR/TVR due to trans-septal puncture -Evaluated at [facility] for closure after occular TIA, deemed not a candidate for closure (Dr. [place] and Dr. Mc): ongoing cocaine use, poor compliance and concomitant valve dz -cont ASA 81mg daily -no sig change on recent echo PAF:NSR currently -Cont Toprol, not candidate for full AC due to poor compliance, drug use -HR control -cont ASA 81mg daily NSVT:during prior admissions as well as this one -h/o non-obs CAD and normal LV systolic function -cont Toprol as BP tolerates -Keep K and Mg wnl
[2017-11-09 12:09] LABS: HEMATOCRIT 44.3 % (35.4-49); HEMOGLOBIN 14.1 GM/dL (11.7-16.9); MCH 32.5 pg (25.7-33.7); MCHC 31.9 g/dl (32.0-35.9); MEAN CELL VOLUME 101.8 fl (80-96); MEAN PLT VOLUME 10.1 fl (7.5-11.1); PLATELET COUNT 149 K/MM3 (134-434); RBC 4.35 M/mm3 (4.00-5.60); RDW 21.1 % (11.9-15.9); WHITE BLOOD COUNT 4.7 K/mm3 (4.0-10.0)
[2017-11-09 12:38] LABS: ANION GAP 16 (8-16); BLOOD UREA NITROGEN 62 mg/dL (7-18); CHLORIDE 100 mmol/L (98-107); CO2 21 mmol/L (21-32); GLUCOSE,RANDOM 212 mg/dL (74-106); PHOSPHOROUS 7.7 mg/dL (2.5-4.9); SODIUM 137 mmol/L (136-145)
[2017-11-09 12:40] LABS: CREATININE 10.7 mg/dL (0.7-1.3)
--- NOTE | 2017-11-09 15:56 | CON.ID ---
Consult Consult Specialty:: Infectious Disease Referred by:: Primary Team Reason for Consultation:: Cellulitis - History of Present Illness History of Present Illness: 57 year old M with pmh of NIDDM, ESRD, on dialysis Saturdays , missed dialysis on Thursday because patient states he didn't feel well, anemia , asthma, COPD, hypertension, hyperlipidemia, cardiac valve replacement, endocarditis, status post recent admission for left-sided facial swelling presented with 3 day history of left sided facial swelling. Patient woke up with on with facial swelling. Patient missed dialysis on Thursday and then Thursday morning woke up with left eye swelling and yellowish discharge. Denies fever, chills, chest pain. - History Source History Provided By: Patient Limitations to Obtaining History: No Limitations - Past Medical History Cardio/Vascular: Yes: CHF (Chronic diastolic HF, Severe Pulm HTN), HTN, Hyperlipdemia, Mitral Insufficiency (s/p MVR (bio)), Pulmonary Hypertension, Other (Severe Tricuspid regurgitation, Endocarditis s/p TVR/MVR, recurrent bacteremia) Pulmonary: Yes: Other (PHTN) Gastrointestinal: Yes: Ascites, Constipation Hepatobiliary: Yes: Hepatitis C Renal/: Yes: Renal Failure, Hemodialysis Psych: Yes: Addictions Musculoskeletal: Yes: Bursitis (left shoulder pain) - Past Surgical History Past Surgical History: Yes: AV Fistula/Graft, Hernia Repair (11/19) - Alcohol/Substance Use Hx Alcohol Use: No History of Substance Use: reports: Cocaine (last use 2 weeks ago), Marijuana - Smoking History Smoking history: Former smoker Have you smoked in the past 12 months: No Aproximately how many cigarettes per day: 3 - Social History Usual Living Arrangement: With Significant Other ADL: Independent 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 History of Recent Travel: No Home Medications - Allergies Allergies/Adverse Reactions: Allergies Allergy/AdvReac Type Severity Reaction Status Date / Time Iodinated Contrast- Oral and Allergy Verified 11/08/17 16:40 IV Dye CONTRAST Allergy Hives Uncoded 11/08/17 16:40 - Home Medications Home Medications: Ambulatory Orders Folic Acid 1 mg PO DAILY 09/11/16 Sevelamer Carbonate [Renvela -] 1,600 mg PO BID 09/11/16 Albuterol Sulfate 0.042% [Ventolin 0.042% (Half-Strength) -] 1 amp NEB TID PRN 04/22/17 Cyclobenzaprine HCl [Flexeril -] 10 mg PO HS 04/22/17 Acetaminophen [Tylenol .Regular Strength -] 650 mg PO Q6H PRN tablet 07/20/17 Albuterol 2.5/Ipratropium 0.5 [Duoneb -] 1 amp NEB Q4H PRN amp 07/20/17 Aspirin [ASA -] 81 mg PO DAILY tab.chew 07/20/17 Calcium Acetate [Phoslo -] 667 mg PO TIDCM capsule 07/20/17 Levothyroxine [Synthroid -] 25 mcg PO DAILY@0700 tablet 07/20/17 Metoprolol Succinate [Toprol XL -] 12.5 mg PO DAILY tab.sr.24h 07/20/17 Oxycodone HCl/Acetaminophen [Percocet 5-325 mg Tablet] 1 - 2 tab PO TID PRN #10 tab MDD 6 08/30/17 Tamsulosin HCl [Flomax -] 0.4 mg PO DAILY@0830 cap.er.24h 09/11/17 Cyclobenzaprine HCl [Flexeril -] 10 mg PO BID tablet 09/25/17 Guaifenesin [Robitussin -] 10 ml PO Q6H PRN cup 09/25/17 Family Disease History - Family Disease History Family Disease History: Other: Father ( of kidney failure), Mother (muscle problems), Sister (healthy and living, HTN) Review of Systems - Review of Systems Constitutional: denies: Chills, Fever Eyes: reports: Other (eye swelling) HENT: reports: Other (facial swelling. no pain) Neck: reports: No Symptoms Cardiovascular: reports: No Symptoms Respiratory: reports: SOB Gastrointestinal: reports: No Symptoms Psychiatric: reports: No Symptoms Physical Exam Vital Signs: Vital Signs Temperature 98.1 F 11/09/17 14:00 Pulse Rate 76 11/09/17 14:00 Respiratory Rate 19 11/09/17 14:00 Blood Pressure 113/73 11/09/17 14:00 O2 Sat by Pulse Oximetry (%) 95 11/09/17 12:00 Constitutional: Yes: No Distress, Calm, Poor Hygeine Eyes: Yes: Conjunctiva Clear, EOM Intact, PERRL HENT: Yes: Atraumatic, Normocephalic, Other (Poor dentition. Mild left facial swelling. No erythema. Hard mass on left mental area of chin) Neck: Yes: Supple, Trachea Midline Cardiovascular: Yes: Regular Rate and Rhythm, S1, S2 Respiratory: Yes: Regular, CTA Bilaterally Gastrointestinal: Yes: Normal Bowel Sounds, Soft. No: Tenderness Edema: Yes Edema: LLE: 2+, RLE: 1+ Labs: CBC, BMP 11/09/17 11:50 11/09/17 11:50 Abnormal Lab Results 11/08/17 11/08/17 11/08/17 17:50 18:00 18:00 MCV 100.0 H MCHC RDW 20.1 H Lymphocytes % 7.4 L PT with INR 13.10 H INR 1.16 H Chloride Carbon Dioxide BUN Creatinine Random Glucose Calcium Phosphorus Creatine Kinase 328 H CK-MB (CK-2) 11.376 H Troponin I 0.09 H B-Natriuretic Peptide 11996.04 H Total Protein Albumin 11/08/17 11/09/17 11/09/17 18:00 11:50 11:50 MCV 101.8 H MCHC 31.9 L RDW 21.1 H Lymphocytes % PT with INR INR Chloride 108 H Carbon Dioxide 19 L D BUN 61 H D 62 H Creatinine 10.4 H* 10.7 H* Random Glucose 212 H D Calcium 7.8 L 8.0 L Phosphorus 7.7 H Creatine Kinase CK-MB (CK-2) Troponin I B-Natriuretic Peptide Total Protein 4.5 L Albumin 1.7 L Imaging - Results Cat Scan: Report Reviewed, Image Reviewed Assessment/Plan Assessment: 1. Dental Abscess with cellulitis 2. Bony erosion of mandible Plan: 1. Vanco level with dialysis tomorrow 2. Unasyn 3g daily 3. Stop clindamycin
--- NOTE | 2017-11-09 16:05 | CONSULT ---
Consult - text type - Consultation Consultation Note: Renal consult for ESRD on HD This is a 57 year old gentleman with PMhx of ESRD on HD (TTS), Hypertension, CHF , Hx of recurrent pleural effusions, Hx of endocarditis who presented with complaints of facial swelling and with fluid overload. Pt missed his last dialysis on Thursday. On BIPAP currently. Has + SOB. Deneis any CP, Abd pain, N/ V/D. Has difficulty eating b/c of facial swelling. No fever, chills, N/V/D. PMhx: as above Allergies: IV contrast Family Hx: NC Social Hx: No T/A/D ROS: as per HPI Home Meds: Home Medications Medication Instructions Recorded Folic Acid 1 mg PO DAILY 09/11/16 Sevelamer Carbonate [Renvela -] 1,600 mg PO BID 09/11/16 Albuterol Sulfate 0.042% [Ventolin 1 amp NEB TID PRN 04/22/17 0.042% (Half-Strength) -] Cyclobenzaprine HCl [Flexeril -] 10 mg PO HS 04/22/17 Acetaminophen [Tylenol .Regular 650 mg PO Q6H PRN tablet 07/20/17 Strength -] Albuterol 2.5/Ipratropium 0.5 1 amp NEB Q4H PRN amp 07/20/17 [Duoneb -] Aspirin [ASA -] 81 mg PO DAILY tab.chew 07/20/17 Calcium Acetate [Phoslo -] 667 mg PO TIDCM capsule 07/20/17 Levothyroxine [Synthroid -] 25 mcg PO DAILY@0700 tablet 07/20/17 Metoprolol Succinate [Toprol XL -] 12.5 mg PO DAILY tab.sr.24h 07/20/17 Oxycodone HCl/Acetaminophen 1 - 2 tab PO TID PRN #10 tab MDD 6 08/30/17 [Percocet 5-325 mg Tablet] Tamsulosin HCl [Flomax -] 0.4 mg PO DAILY@0830 cap.er.24h 09/11/17 Cyclobenzaprine HCl [Flexeril -] 10 mg PO BID tablet 09/25/17 Guaifenesin [Robitussin -] 10 ml PO Q6H PRN cup 09/25/17 Vital Signs Temperature 98.1 F 11/09/17 14:00 Pulse Rate 76 11/09/17 14:00 Respiratory Rate 19 11/09/17 14:00 Blood Pressure 113/73 11/09/17 14:00 O2 Sat by Pulse Oximetry (%) 95 11/09/17 12:00 NAD on BIPAP Mild JVD Neck supple MMM RRR + rales at lung bases soft NT/ND NO LE edema CBC, BMP 11/09/17 11:50 11/09/17 11:50 Current Medications Albumin Human (Albumin Human 25%) 12.5 gm IVPB Q30M [facility] Albuterol/Ipratropium (Duoneb -) 1 amp NEB Q4H PRN PRN Reason: SHORTNESS OF BREATH Last Admin: 11/09/17 09:12 Dose: 1 amp Aspirin (Asa -) 81 mg PO DAILY [facility] Last Admin: 11/09/17 09:39 Dose: 81 mg Calcium Acetate (Phoslo -) 667 mg PO TIDCM [facility] Last Admin: 11/09/17 11:58 Dose: 667 mg Folic Acid (Folic Acid -) 1 mg PO DAILY [facility] Last Admin: 11/09/17 09:44 Dose: 1 mg Heparin Sodium (Porcine) (Heparin -) 5,000 unit SQ BID [facility] Last Admin: 11/09/17 09:44 Dose: Not Given CEFTRIAXONE 1 G/50 ML PREMIX (Ceftriaxone 1 Gm-D5w Bag) 50 mls @ 100 mls/hr IVPB DAILY [facility] Last Admin: 11/09/17 09:44 Dose: 100 mls/hr Ampicillin Sodium/Sulbactam (Sodium 3 gm/ Sodium Chloride) 100 mls @ 200 mls/ hr IVPB DAILY [facility] Levothyroxine Sodium (Synthroid -) 25 mcg PO DAILY@0700 [facility] Last Admin: 11/09/17 06:14 Dose: 25 mcg Metoprolol Succinate (Toprol Xl -) 12.5 mg PO DAILY [facility] Last Admin: 11/09/17 09:43 Dose: 12.5 mg Sevelamer Carbonate (Renvela -) 1,600 mg PO BIDWM [facility] Last Admin: 11/09/17 08:52 Dose: 1,600 mg Tamsulosin HCl (Flomax -) 0.4 mg PO DAILY@0830 [facility] Last Admin: 11/09/17 08:52 Dose: 0.4 mg 57 year old gentleman with PMhx of ESRD on HD (TTS), Hypertension, CHF, Hx of recurrent pleural effusions, Hx of endocarditis who presented with complaints of facial swelling and with fluid overload. 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
--- NOTE | 2017-11-09 16:14 | PN ---
Teaching Attending Note Name of Resident: Tim Price ATTENDING PHYSICIAN STATEMENT I saw and evaluated the patient. I reviewed the resident's note and discussed the case with the resident. I agree with the resident's findings and plan as documented. SUBJECTIVE: Awake, alert C/O facial pain OBJECTIVE: + L facial swelling Poor dentition Cor S1S2 Lungs clear Abdo soft, non tender + AVF L UE ASSESSMENT AND PLAN: L facial cellulitis Dental abscess ESRD Await c/s Empiric Unasyn 3gm IVPB q24h Check vancomycin level at HD D/C clindamycin Needs dental follow up
--- NOTE | 2017-11-09 19:04 | HP ---
Admitting History and Physical - Admission History of Present Illness: 57 y/o M w/ h/o multiple valvular surgeries due to endocarditis, residual ASD, Pafib, NSVT, ocular TIA, ESRD on HD, substance abuse, awaiting new HD vascular access, now admitted for worsening facial swelling secondary to dental abscess and missed HD on thursday, thus has a degree of pulmonary vascular congestion. - Past Medical History Cardiovascular: Yes: CHF (Chronic diastolic HF, Severe Pulm HTN), HTN, Hyperlipdemia, Mitral Insufficiency (s/p MVR (bio)), Pulmonary Hypertension, Other (Severe Tricuspid regurgitation, Endocarditis s/p TVR/MVR, recurrent bacteremia) Pulmonary: Yes: Other (PHTN) Gastrointestinal: Yes: Ascites, Constipation Hepatobiliary: Yes: Hepatitis C Renal/: Yes: Renal Failure, Hemodialysis Heme/Onc: Yes: Anemia Psych: Yes: Addictions Musculoskeletal: Yes: Bursitis (left shoulder pain) - Past Surgical History Past Surgical History: Yes: AV Fistula/Graft, Hernia Repair (11/19) - Smoking History Smoking history: Never smoked Have you smoked in the past 12 months: Yes Aproximately how many cigarettes per day: 3 - Alcohol/Substance Use Hx Alcohol Use: No History of Substance Use: reports: Cocaine (last use 2 weeks ago), Marijuana - Social History ADL: Independent 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 History of Recent Travel: No Home Medications - Allergies Allergies/Adverse Reactions: Allergies Allergy/AdvReac Type Severity Reaction Status Date / Time Iodinated Contrast- Oral and Allergy Verified 11/08/17 16:40 IV Dye CONTRAST Allergy Hives Uncoded 11/08/17 16:40 - Home Medications Home Medications: Ambulatory Orders Folic Acid 1 mg PO DAILY 09/11/16 Sevelamer Carbonate [Renvela -] 1,600 mg PO BID 09/11/16 Albuterol Sulfate 0.042% [Ventolin 0.042% (Half-Strength) -] 1 amp NEB TID PRN 04/22/17 Acetaminophen [Tylenol .Regular Strength -] 650 mg PO Q6H PRN tablet 07/20/17 Albuterol 2.5/Ipratropium 0.5 [Duoneb -] 1 amp NEB Q4H PRN amp 07/20/17 Aspirin [ASA -] 81 mg PO DAILY tab.chew 07/20/17 Calcium Acetate [Phoslo -] 667 mg PO TIDCM capsule 07/20/17 Levothyroxine [Synthroid -] 25 mcg PO DAILY@0700 tablet 07/20/17 Oxycodone HCl/Acetaminophen [Percocet 5-325 mg Tablet] 1 - 2 tab PO TID PRN #10 tab MDD 6 08/30/17 Tamsulosin HCl [Flomax -] 0.4 mg PO DAILY@0830 cap.er.24h 09/11/17 Cyclobenzaprine HCl [Flexeril -] 10 mg PO BID tablet 09/25/17 Albuterol Sulfate Inhaler - [Ventolin HFA Inhaler -] 1 - 2 inh PO Q4H PRN #1 inhaler 11/13/17 Isosorbide Mononitrate [Isosorbide Mononitrate ER] 30 mg PO ONCE 11/26/17 Midodrine HCl 5 mg PO TID 11/26/17 Aspirin [ASA -] 81 mg PO DAILY tab.chew 12/02/17 Folic Acid - 1 mg PO DAILY tablet 12/02/17 Lipase/Protease/Amylase [Ava Esquivel 36,000 Units Capsule] 1 cap PO TIDCM #90 capsule. 12/02/17 Metoprolol Succinate [Toprol XL -] 12.5 mg PO DAILY tab.sr.24h 12/02/17 Multivitamins [Multivit ([facility] Form[facility])] 1 tab PO DAILY tab 12/02/17 Sevelamer Carbonate [Renvela -] 1,600 mg PO TIDCM tab 12/02/17 Tamsulosin HCl [Flomax -] 0.4 mg PO DAILY@0830 cap.er.24h 12/02/17 metroNIDAZOLE [Flagyl -] 250 mg PO TID #42 tablet 12/02/17 Family Disease History - Family Disease History Family Disease History: Other: Father ( of kidney failure), Mother (muscle problems), Sister (healthy and living, HTN) Review of Systems - Review of Systems Constitutional: denies: No Symptoms, Chills, Diaphoresis, Fever, Lethargy, Loss of Appetite, Malaise, Night Sweats, Unintentional Wgt. Loss, Weakness, Other Eyes: denies: No Symptoms, Blind Spots, Blurred Vision, Double Vision, Eye Pain , Floaters, Photophobia, Recent Change in Vision, Other Cardiovascular: denies: No Symptoms, Chest Pain, Edema, Palpitations, Shortness of Breath, Other Respiratory: reports: SOB on Exertion Gastrointestinal: reports: No Symptoms Physical Examination Vital Signs: Vital Signs Temperature 97.4 F L 11/09/17 18:00 Pulse Rate 74 11/09/17 18:00 Respiratory Rate 24 11/09/17 18:00 Blood Pressure 102/81 11/09/17 18:00 O2 Sat by Pulse Oximetry (%) 95 11/09/17 12:00 Constitutional: Yes: No Distress Eyes: Yes: WNL, Conjunctiva Clear, EOM Intact HENT: Yes: Other (facial swelling) Neck: Yes: WNL Cardiovascular: Yes: WNL, Regular Rate and Rhythm Respiratory: Yes: Diminished, Rales Gastrointestinal: Yes: WNL, Normal Bowel Sounds Musculoskeletal: Yes: WNL Extremities: Yes: WNL Edema: No Integumentary: Yes: WNL Neurological: Yes: WNL, Alert, Oriented ...Motor Strength: WNL Psychiatric: Yes: WNL Labs: CBC, BMP 11/09/17 11:50 11/09/17 11:50 Assessment/Plan Left facial cellulitis/ Dental abscess ESRD- cont HD Cont ABX ID consult
[2017-11-09] MEDS: AMPICILLIN NA/SULBACTAM NA 3 GM in SODIUM CHLORIDE 100 ML IVPB SCH (20:30)
[2017-11-09] MEDS ORDERED: PT OWN MED DRAWER 7, Y5N ONE (20:41)
--- NOTE | 2017-11-09 22:38 | CONSULT ---
- Consultation REQUESTING PROVIDER: Gerard CONSULT REQUEST: We have been asked to surgically evaluate this patient for a hernia PCP:Shania Gee HISTORY OF PRESENT ILLNESS:Unknown; patient states he has a hernia in the middle of his abdomen for unknown period of time; he is currently admitted to the ICU for # medical comorbid conditions; this is one of many admissions and readmissions to this hospital. He has various complaints; he cannot articulate exactly where his hernia is; there is no documentation in any recent physical exam of a hernia. PMHx: ESRD; HTN PSHx: RIH repair; umbilical hernia repair Home Medications Medication Instructions Recorded Folic Acid 1 mg PO DAILY 09/11/16 Sevelamer Carbonate [Renvela -] 1,600 mg PO BID 09/11/16 Albuterol Sulfate 0.042% [Ventolin 1 amp NEB TID PRN 04/22/17 0.042% (Half-Strength) -] Cyclobenzaprine HCl [Flexeril -] 10 mg PO HS 04/22/17 Acetaminophen [Tylenol .Regular 650 mg PO Q6H PRN tablet 07/20/17 Strength -] Albuterol 2.5/Ipratropium 0.5 1 amp NEB Q4H PRN amp 07/20/17 [Duoneb -] Aspirin [ASA -] 81 mg PO DAILY tab.chew 07/20/17 Calcium Acetate [Phoslo -] 667 mg PO TIDCM capsule 07/20/17 Levothyroxine [Synthroid -] 25 mcg PO DAILY@0700 tablet 07/20/17 Metoprolol Succinate [Toprol XL -] 12.5 mg PO DAILY tab.sr.24h 07/20/17 Oxycodone HCl/Acetaminophen 1 - 2 tab PO TID PRN #10 tab MDD 6 08/30/17 [Percocet 5-325 mg Tablet] Tamsulosin HCl [Flomax -] 0.4 mg PO DAILY@0830 cap.er.24h 09/11/17 Cyclobenzaprine HCl [Flexeril -] 10 mg PO BID tablet 09/25/17 Guaifenesin [Robitussin -] 10 ml PO Q6H PRN cup 09/25/17 Allergies Allergy/AdvReac Type Severity Reaction Status Date / Time Iodinated Contrast- Oral and Allergy Verified 11/08/17 16:40 IV Dye CONTRAST Allergy Hives Uncoded 11/08/17 16:40 PHYSICAL EXAM: GENERAL: Awake, alert, and fully oriented, in slight respiratory distress in ICU on bipap HEAD: Normal with no signs of trauma. EYES: PERRL, sclera anicteric, conjunctiva clear. NECK: Normal ROM, supple without lymphadenopathy, JVD, or masses. ABDOMEN: Soft, nontender, not distended, normoactive bowel sounds, no guarding, no rebound, no masses. No organomegaly. Diastasis rectii is present; healed RIH scar; no recurrent RIH; no LIH; scar at umbilicus w/o recurrent hernia. MUSCULOSKELETAL: Normal ROM at all joints. No bony deformities or tenderness. No CVA tenderness. NEUROLOGICAL: Normal speech, gait not observed. PSYCH: Cooperative. Good eye contact. Appropriate mood and affect. SKIN: Warm, dry, normal turgor, no rashes or lesions noted. Vital Signs Temperature 97.3 F L 11/09/17 22:00 Pulse Rate 76 11/09/17 22:00 Respiratory Rate 20 11/09/17 22:00 Blood Pressure 114/84 11/09/17 22:00 O2 Sat by Pulse Oximetry (%) 98 11/09/17 21:00 Lab Results WBC 4.7 K/mm3 (4.0-10.0) 11/09/17 11:50 RBC 4.35 M/mm3 (4.00-5.60) 11/09/17 11:50 Hgb 14.1 GM/dL (11.7-16.9) 11/09/17 11:50 Hct 44.3 % (35.4-49) 11/09/17 11:50 MCV 101.8 fl (80-96) H 11/09/17 11:50 MCHC 31.9 g/dl (32.0-35.9) L 11/09/17 11:50 RDW 21.1 % (11.9-15.9) H 11/09/17 11:50 Plt Count 149 K/MM3 (134-434) 11/09/17 11:50 Sodium 137 mmol/L (136-145) 11/09/17 11:50 Potassium 4.0 mmol/L (3.5-5.1) 11/09/17 11:50 Chloride 100 mmol/L (98-107) 11/09/17 11:50 Carbon Dioxide 21 mmol/L (21-32) 11/09/17 11:50 Anion Gap 16 (8-16) 11/09/17 11:50 BUN 62 mg/dL (7-18) H 11/09/17 11:50 Creatinine 10.7 mg/dL (0.7-1.3) H* 11/09/17 11:50 Random Glucose 212 mg/dL (74-106) H D 11/09/17 11:50 Calcium 8.0 mg/dL (8.5-10.1) L 11/09/17 11:50 Blood Type O POSITIVE 11/08/17 18:00 Antibody Screen Negative 11/08/17 18:00 INR 1.16 (0.82-1.09) H 11/08/17 18:00 IMP: No evidence of abdominal wall hernia. PLAN: As per medicine; no surgical intervention is indicated. Mitch Roy MD FACS Visit type - Case Type Case Type: ED Admission - Emergency Emergency Visit: Yes ED Registration Date: 11/08/17 Care time: The patient presented to the Emergency Department on the above date and was hospitalized for further evaluation of their emergent condition. - New patient This patient is new to me today: Yes Date on this admission: 11/09/17 - Critical Care Critical Care patient: Yes Total Critical Care Time: 15
[2017-11-10] MEDS: LEVOTHYROXINE NA 25 MCG TABLET (FP) PO SCH (06:10)
[2017-11-10] MEDS ORDERED: PT OWN MED DRAWER 7, Y5N ONE ×2 (08:35→17:24)
--- NOTE | 2017-11-10 08:50 | PN ---
Progress Note, Physician Chief Complaint: no chest pain or SOB - Current Medication List Current Medications: Active Medications Albumin Human (Albumin Human 25%) 12.5 gm IVPB Q30M [facility] Albuterol/Ipratropium (Duoneb -) 1 amp NEB Q4H PRN PRN Reason: SHORTNESS OF BREATH Last Admin: 11/09/17 09:12 Dose: 1 amp Aspirin (Asa -) 81 mg PO DAILY [facility] Last Admin: 11/09/17 09:39 Dose: 81 mg Calcium Acetate (Phoslo -) 667 mg PO TIDCM [facility] Last Admin: 11/09/17 18:22 Dose: 667 mg Folic Acid (Folic Acid -) 1 mg PO DAILY [facility] Last Admin: 11/09/17 09:44 Dose: 1 mg Heparin Sodium (Porcine) (Heparin -) 5,000 unit SQ BID [facility] Last Admin: 11/09/17 22:00 Dose: Not Given Ampicillin Sodium/Sulbactam (Sodium 3 gm/ Sodium Chloride) 100 mls @ 200 mls/ hr IVPB DAILY [facility] Last Admin: 11/09/17 20:30 Dose: 200 mls/hr Levothyroxine Sodium (Synthroid -) 25 mcg PO DAILY@0700 [facility] Last Admin: 11/10/17 06:10 Dose: 25 mcg Metoprolol Succinate (Toprol Xl -) 12.5 mg PO DAILY [facility] Last Admin: 11/09/17 09:43 Dose: 12.5 mg Sevelamer Carbonate (Renvela -) 1,600 mg PO BIDWM [facility] Last Admin: 11/09/17 18:22 Dose: 1,600 mg Tamsulosin HCl (Flomax -) 0.4 mg PO DAILY@0830 [facility] Last Admin: 11/09/17 08:52 Dose: 0.4 mg - Objective Vital Signs: Vital Signs Temperature 97.4 F L 11/10/17 05:07 Pulse Rate 74 11/10/17 05:07 Respiratory Rate 20 11/10/17 05:07 Blood Pressure 102/72 11/10/17 05:07 O2 Sat by Pulse Oximetry (%) 98 11/09/17 21:00 Constitutional: Yes: No Distress, Calm Eyes: Yes: Conjunctiva Clear Cardiovascular: Yes: Regular Rate and Rhythm Respiratory: Yes: Other (decreased breath sounds at bases) Gastrointestinal: Yes: Other (mildly distended, non-tender) Edema: Yes Edema: LLE: 2+, RLE: 2+ Neurological: Yes: Alert Labs: CBC, BMP 11/09/17 11:50 11/09/17 11:50 INR, PTT INR 1.16 (0.82-1.09) H 11/08/17 18:00 - ....Imaging EKG: Image Reviewed (TELE: NSR, NSVT several short runs maximum 5 beats) Assessment/Plan IMP: Dental abscess SOB, Pleural effusions ASD PAF NSVT REC: Dental abscess: -ENT evaluation -Abx as indicated Preop for Vascular access for HD: -Pt is a high risk patient but there is currently no absolute cardiac contraindication to having vascular access performed. However, would consider that he might have an active dental abscess and thus consider optimal timing of the procedure. SOB: -Recurrent Pleural effusions, current mild pulm edema likely a combination of factors including missing HD on thursday -s/p thoracentesis last admission with symptomatic improvement -volume removal with HD as tolerates ASD: -s/p MVR/TVR due to trans-septal puncture -Evaluated at [facility] for closure after occular TIA, deemed not a candidate for closure (Dr. [place] and Dr. Mc): ongoing cocaine use, poor compliance and concomitant valve dz -cont ASA 81mg daily -no sig change on recent echo PAF:NSR currently -Cont Toprol, not candidate for full AC due to poor compliance, drug use -HR control -cont ASA 81mg daily NSVT:during prior admissions as well as this one -h/o non-obs CAD and normal LV systolic function -cont Toprol as BP tolerates -Keep K and Mg wnl
[2017-11-10] MEDS: CALCIUM ACETATE 667 MG CAPSULE (FP) PO SCH ×4 (09:33→18:41)
[2017-11-10] MEDS: metoPROLOL SUCCINATE 25 MG TAB.SR.24H (FP) PO SCH (09:33)
[2017-11-10] MEDS: SEVELAMER CARBONATE 800 MG TAB (FP) PO SCH ×3 (09:33→18:39)
[2017-11-10] MEDS: TAMSULOSIN HCL 0.4 MG CAP.ER.24H (FP) PO SCH (09:34)
[2017-11-10] MEDS: FOLIC ACID 1 MG TABLET (FP) PO SCH (09:34)
[2017-11-10] MEDS: ASPIRIN 81 MG CHEWABLE TABLETS PO SCH (09:34)
[2017-11-10] MEDS: AMPICILLIN NA/SULBACTAM NA 3 GM in SODIUM CHLORIDE 100 ML IVPB SCH (09:35)
[2017-11-10] MEDS: HEPARIN NA (PORCINE) 5,000 UNITS/ML 1ML VIAL SQ SCH ×2 (09:35→21:04)
--- NOTE | 2017-11-10 10:09 | PN ---
Progress Note, Physician History of Present Illness: No acute events overnight. Patient states swelling has decreased. Patient denies fever, chills, pain in the mouth. Patient likely for dialysis today. - Current Medication List Current Medications: Active Medications Albumin Human (Albumin Human 25%) 12.5 gm IVPB Q30M [facility] Albuterol/Ipratropium (Duoneb -) 1 amp NEB Q4H PRN PRN Reason: SHORTNESS OF BREATH Last Admin: 11/09/17 09:12 Dose: 1 amp Aspirin (Asa -) 81 mg PO DAILY [facility] Last Admin: 11/10/17 09:34 Dose: 81 mg Calcium Acetate (Phoslo -) 667 mg PO TIDCM [facility] Last Admin: 11/10/17 09:33 Dose: 667 mg Folic Acid (Folic Acid -) 1 mg PO DAILY [facility] Last Admin: 11/10/17 09:34 Dose: 1 mg Heparin Sodium (Porcine) (Heparin -) 5,000 unit SQ BID [facility] Last Admin: 11/10/17 09:35 Dose: Not Given Ampicillin Sodium/Sulbactam (Sodium 3 gm/ Sodium Chloride) 100 mls @ 200 mls/ hr IVPB DAILY [facility] Last Admin: 11/10/17 09:35 Dose: 200 mls/hr Levothyroxine Sodium (Synthroid -) 25 mcg PO DAILY@0700 [facility] Last Admin: 11/10/17 06:10 Dose: 25 mcg Metoprolol Succinate (Toprol Xl -) 12.5 mg PO DAILY [facility] Last Admin: 11/10/17 09:33 Dose: 12.5 mg Sevelamer Carbonate (Renvela -) 1,600 mg PO BIDWM [facility] Last Admin: 11/10/17 09:33 Dose: 1,600 mg Tamsulosin HCl (Flomax -) 0.4 mg PO DAILY@0830 [facility] Last Admin: 11/10/17 09:34 Dose: 0.4 mg - Objective Vital Signs: Vital Signs Temperature 98.2 F 11/10/17 08:50 Pulse Rate 77 11/10/17 08:50 Respiratory Rate 20 11/10/17 08:52 Blood Pressure 105/79 11/10/17 08:50 O2 Sat by Pulse Oximetry (%) 98 11/09/17 21:00 Constitutional: Yes: No Distress, Calm, Poor Hygeine Eyes: Yes: Conjunctiva Clear, EOM Intact, PERRL HENT: Yes: Atraumatic, Normocephalic, Other (Poor dentition. Mild left facial swelling. No erythema. Hard mass on left mental area of chin) Neck: Yes: Supple, Trachea Midline Cardiovascular: Yes: Regular Rate and Rhythm, S1, S2 Respiratory: Yes: Regular, CTA Bilaterally Gastrointestinal: Yes: Normal Bowel Sounds, Soft. No: Tenderness Edema: Yes Edema: LLE: 2+, RLE: 1+ Labs: CBC, BMP 11/09/17 11:50 11/09/17 11:50 INR, PTT INR 1.16 (0.82-1.09) H 11/08/17 18:00 Assessment/Plan Assessment: 1. Dental Abscess with cellulitis 2. Bony erosion of mandible Plan: 1. Vanco level with dialysis today 2. Continue Unasyn 3g daily, renally dosed
--- NOTE | 2017-11-10 12:39 | PN ---
Teaching Attending Note Name of Resident: Tim Price ATTENDING PHYSICIAN STATEMENT I saw and evaluated the patient. I reviewed the resident's note and discussed the case with the resident. I agree with the resident's findings and plan as documented. SUBJECTIVE: Awake , alert No acute distress Afebrile WBC WNL OBJECTIVE: Decreased L facial swelling cor S1S2 Lungs clear Abdomen soft, non tender ASSESSMENT AND PLAN: Dental abscesses L facial cellulitis ESRD Await c/s Continue Unasyn Check vancomycin random level at dialysis, redose 1gm x 1 for level < 15
--- NOTE | 2017-11-10 14:58 | PN ---
Physical Exam: SUBJECTIVE: Patient seen and examined. He c/o sob and would like bipap replaced. Denies cp, fever, chills. Facial swelling down, now has hard mass on Lower tooth.mandible. OBJECTIVE: Vital Signs Period Temp Pulse Resp BP Sys/Anderson Pulse Ox Last 24 Hr 97.3 F-98.2 F 74-77 20-24 102-114/72-84 90-98 PE Neuro: alert,awake, cn 2-12intact HEENT: Left hard mass mandible Pulm: diminished bases with crackles CV: s1 s2 rrr + murmur Abd: s nt nd + bs Ext: RCW permacath, trace le edema Active Medications Generic Name Dose Route Start Last Admin Trade Name Freq PRN Reason Stop Dose Admin Albumin Human 12.5 gm 11/10/17 06:00 Albumin Human 25% IVPB Q30M [facility] Albuterol/Ipratropium 1 amp 11/09/17 02:12 11/09/17 09:12 Duoneb - NEB 1 amp Q4H PRN Administration SHORTNESS OF BREATH Aspirin 81 mg 11/09/17 10:00 11/10/17 09:34 Asa - PO 81 mg DAILY [facility] Administration Calcium Acetate 667 mg 11/09/17 08:00 11/10/17 09:33 Phoslo - PO 667 mg TIDCM [facility] Administration Folic Acid 1 mg 11/09/17 10:00 11/10/17 09:34 Folic Acid - PO 1 mg DAILY [facility] Administration Heparin Sodium (Porcine) 5,000 unit 11/09/17 10:00 11/10/17 09:35 Heparin - SQ Not Given BID [facility] Ampicillin Sodium/Sulbactam 100 mls @ 200 mls/hr 11/09/17 19:15 11/10/17 09: 35 Sodium 3 gm/ Sodium Chloride IVPB 200 mls/hr DAILY [facility] Administration Levothyroxine Sodium 25 mcg 11/09/17 07:00 11/10/17 06:10 Synthroid - PO 25 mcg DAILY@0700 [facility] Administration Metoprolol Succinate 12.5 mg 11/09/17 10:00 11/10/17 09:33 Toprol Xl - PO 12.5 mg DAILY [facility] Administration Sevelamer Carbonate 1,600 mg 11/09/17 08:00 11/10/17 09:33 Renvela - PO 1,600 mg BIDWM [facility] Administration Tamsulosin HCl 0.4 mg 11/09/17 08:30 11/10/17 09:34 Flomax - PO 0.4 mg DAILY@0830 [facility] Administration Assessment: 57 year old male with PMhx of ESRD on HD (TTS at [facility]), CHF, Hypertension, MV/TV repair, MRSA endocarditis s/p Bio AVR/MVR 2014 at [facility], polysubstance abuse admitted with left facial swelling and missed HD session. Plan: 1. Facial cellulitis/dental abscess - Cont unysan - Vanco level with HD today - ID seeing 2. ESRD on HD - HD today - Per cardiology pt is a high risk patient but there is currently no absolute cardiac contraindication to having vascular access performed. However, would consider that he might have an active dental abscess and thus consider optimal timing of the procedure. - Placement per Vascular Dr. Larson 3. ASD -s/p MVR/TVR due to trans-septal puncture, not candidate for closure - ASA daily 4. PAF - Toprol - Poor complance, ongoing substance abuse 5. Hypothyroid - synthroid 6. Abdominal hernia - No hernia per surgery, no intervention Visit type - Emergency Visit Emergency Visit: Yes ED Registration Date: 11/08/17 Care time: The patient presented to the Emergency Department on the above date and was hospitalized for further evaluation of their emergent condition. - New Patient This patient is new to me today: Yes Date on this admission: 11/10/17 - Critical Care Critical Care patient: No
[2017-11-10] MEDS: ALBUMIN HUMAN 25% 12.5 GM/50 ML VIAL IVPB SCH ×4 (15:30→17:00)
--- NOTE | 2017-11-10 16:37 | PN ---
Progress Note (short form) - Note Progress Note: Renal Follow up for ESRD on HD Pt seen and examined at the bedside awake and alert getting dialysis Goal UF is 3L pt demanding that his tx time be cut to 3 hours Vital Signs Temperature 97.3 F L 11/10/17 13:15 Pulse Rate 86 11/10/17 15:20 Respiratory Rate 18 11/10/17 15:20 Blood Pressure 94/70 11/10/17 15:20 O2 Sat by Pulse Oximetry (%) 95 11/10/17 14:13 NAD awake and alert RRR + rales soft NT No LE edema CBC, BMP 11/09/17 11:50 11/09/17 11:50 Current Medications Albumin Human (Albumin Human 25%) 12.5 gm IVPB Q30M [facility] Stop: 11/10/17 17:01 Albuterol/Ipratropium (Duoneb -) 1 amp NEB Q4H PRN PRN Reason: SHORTNESS OF BREATH Last Admin: 11/09/17 09:12 Dose: 1 amp Aspirin (Asa -) 81 mg PO DAILY [facility] Last Admin: 11/10/17 09:34 Dose: 81 mg Calcium Acetate (Phoslo -) 667 mg PO TIDCM [facility] Last Admin: 11/10/17 12:25 Dose: 667 mg Folic Acid (Folic Acid -) 1 mg PO DAILY [facility] Last Admin: 11/10/17 09:34 Dose: 1 mg Heparin Sodium (Porcine) (Heparin -) 5,000 unit SQ BID [facility] Last Admin: 11/10/17 09:35 Dose: Not Given Ampicillin Sodium/Sulbactam (Sodium 3 gm/ Sodium Chloride) 100 mls @ 200 mls/ hr IVPB DAILY [facility] Last Admin: 11/10/17 09:35 Dose: 200 mls/hr Levothyroxine Sodium (Synthroid -) 25 mcg PO DAILY@0700 [facility] Last Admin: 11/10/17 06:10 Dose: 25 mcg Metoprolol Succinate (Toprol Xl -) 12.5 mg PO DAILY [facility] Last Admin: 11/10/17 09:33 Dose: 12.5 mg Sevelamer Carbonate (Renvela -) 1,600 mg PO BIDWM [facility] Last Admin: 11/10/17 09:33 Dose: 1,600 mg Tamsulosin HCl (Flomax -) 0.4 mg PO DAILY@0830 [facility] Last Admin: 11/10/17 09:34 Dose: 0.4 mg 57 year old gentleman with PMhx of ESRD on HD (TTS), Hypertension, CHF, Hx of recurrent pleural effusions, Hx of endocarditis who presented with complaints of facial swelling and with fluid overload. 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
[2017-11-10] MEDS ORDERED: SODIUM CHLORIDE 250 ML IV ONE (17:00)
[2017-11-10] MEDS ORDERED: VANCOMYCIN 1,000 MG in DEXTROSE 5%-WATER - 250 ML IVPB ONE (17:00)
[2017-11-11] MEDS: ALBUTEROL SO4 2.5/IPRATROPIUM 0.5 INH SOL 3 ML VIAL.NEB. NEB PRN (03:30)
[2017-11-11] MEDS: LEVOTHYROXINE NA 25 MCG TABLET (FP) PO SCH (06:04)
[2017-11-11] MEDS ORDERED: ALTEPLASE 2 MG VIAL CVP ONE (07:30)
[2017-11-11] MEDS: TAMSULOSIN HCL 0.4 MG CAP.ER.24H (FP) PO SCH (08:06)
[2017-11-11] MEDS: SEVELAMER CARBONATE 800 MG TAB (FP) PO SCH ×2 (08:06→17:20)
[2017-11-11] MEDS: CALCIUM ACETATE 667 MG CAPSULE (FP) PO SCH ×3 (08:06→17:20)
[2017-11-11 08:09] LABS: HBSAG SCREEN Negative (Negative); HEP B CORE AB, TOT Negative (Negative)
[2017-11-11] MEDS: HEPARIN NA (PORCINE) 5,000 UNITS/ML 1ML VIAL SQ SCH ×3 (09:19→21:30)
[2017-11-11] MEDS: FOLIC ACID 1 MG TABLET (FP) PO SCH (09:24)
[2017-11-11] MEDS: metoPROLOL SUCCINATE 25 MG TAB.SR.24H (FP) PO SCH (09:24)
[2017-11-11] MEDS: ASPIRIN 81 MG CHEWABLE TABLETS PO SCH (09:24)
[2017-11-11] MEDS: AMPICILLIN NA/SULBACTAM NA 3 GM in SODIUM CHLORIDE 100 ML IVPB SCH (09:25)
--- NOTE | 2017-11-11 10:49 | PN ---
Progress Note, Physician History of Present Illness: No acute events overnight. Patient states swelling has decreased. Patient states he is having loose stools. Patient denies fever, chills, pain in the mouth. Patient completed dialysis yesterday. Per RN, may go back to dialysis today. - Current Medication List Current Medications: Active Medications Albuterol/Ipratropium (Duoneb -) 1 amp NEB Q4H PRN PRN Reason: SHORTNESS OF BREATH Last Admin: 11/11/17 03:30 Dose: 1 amp Aspirin (Asa -) 81 mg PO DAILY [facility] Last Admin: 11/11/17 09:24 Dose: 81 mg Calcium Acetate (Phoslo -) 667 mg PO TIDCM [facility] Last Admin: 11/11/17 08:06 Dose: 667 mg Folic Acid (Folic Acid -) 1 mg PO DAILY [facility] Last Admin: 11/11/17 09:24 Dose: 1 mg Heparin Sodium (Porcine) (Heparin -) 5,000 unit SQ BID [facility] Last Admin: 11/11/17 09:26 Dose: 5,000 unit Ampicillin Sodium/Sulbactam (Sodium 3 gm/ Sodium Chloride) 100 mls @ 200 mls/ hr IVPB DAILY [facility] Last Admin: 11/11/17 09:25 Dose: 200 mls/hr Levothyroxine Sodium (Synthroid -) 25 mcg PO DAILY@0700 [facility] Last Admin: 11/11/17 06:04 Dose: 25 mcg Metoprolol Succinate (Toprol Xl -) 12.5 mg PO DAILY [facility] Last Admin: 11/11/17 09:24 Dose: 12.5 mg Sevelamer Carbonate (Renvela -) 1,600 mg PO BIDWM [facility] Last Admin: 11/11/17 08:06 Dose: 1,600 mg Tamsulosin HCl (Flomax -) 0.4 mg PO DAILY@0830 [facility] Last Admin: 11/11/17 08:06 Dose: 0.4 mg - Objective Vital Signs: Vital Signs Temperature 97.9 F 11/11/17 07:36 Pulse Rate 80 11/11/17 07:36 Respiratory Rate 20 11/11/17 07:40 Blood Pressure 104/66 11/11/17 07:36 O2 Sat by Pulse Oximetry (%) 95 11/11/17 07:40 Constitutional: Yes: No Distress, Calm, Poor Hygeine Eyes: Yes: Conjunctiva Clear, EOM Intact, PERRL HENT: Yes: Atraumatic, Normocephalic, Other (Poor dentition. Mild left facial swelling. No erythema. Hard mass on left mental area of chin) Neck: Yes: Supple, Trachea Midline Cardiovascular: Yes: Regular Rate and Rhythm, S1, S2 Respiratory: Yes: Regular, CTA Bilaterally Gastrointestinal: Yes: Normal Bowel Sounds, Soft. No: Tenderness Edema: Yes Edema: LLE: 2+, RLE: 1+ Labs: CBC, BMP 11/09/17 11:50 11/09/17 11:50 INR, PTT INR 1.16 (0.82-1.09) H 11/08/17 18:00 Assessment/Plan Assessment: 1. Dental Abscess with cellulitis 2. Bony erosion of mandible Plan: 1. Continue Unasyn 3g daily, renally dosed 2. Vanco level reviewed. Dose given yesterday
--- NOTE | 2017-11-11 11:14 | CON.ENT ---
Consult Consult Specialty:: ENT Reason for Consultation:: facial swelling - History Source History Provided By: Patient, Medical Record Limitations to Obtaining History: Clinical Condition - Past Medical History Cardio/Vascular: Yes: CHF (Chronic diastolic HF, Severe Pulm HTN), HTN, Hyperlipdemia, Mitral Insufficiency (s/p MVR (bio)), Pulmonary Hypertension, Other (Severe Tricuspid regurgitation, Endocarditis s/p TVR/MVR, recurrent bacteremia) Pulmonary: Yes: Other (PHTN) Gastrointestinal: Yes: Ascites, Constipation Hepatobiliary: Yes: Hepatitis C Renal/: Yes: Renal Failure, Hemodialysis Psych: Yes: Addictions Musculoskeletal: Yes: Bursitis (left shoulder pain) - Past Surgical History Past Surgical History: Yes: AV Fistula/Graft, Hernia Repair (11/19) - Alcohol/Substance Use Hx Alcohol Use: No History of Substance Use: reports: Cocaine (last use 2 weeks ago), Marijuana - Smoking History Smoking history: Never smoked Have you smoked in the past 12 months: Yes Aproximately how many cigarettes per day: 3 - Social History Usual Living Arrangement: With Significant Other ADL: Independent 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 [employer] History of Recent Travel: No Home Medications - Allergies Allergies/Adverse Reactions: Allergies Allergy/AdvReac Type Severity Reaction Status Date / Time Iodinated Contrast- Oral and Allergy Verified 11/08/17 16:40 IV Dye CONTRAST Allergy Hives Uncoded 11/08/17 16:40 - Home Medications Home Medications: Ambulatory Orders Folic Acid 1 mg PO DAILY 09/11/16 Sevelamer Carbonate [Renvela -] 1,600 mg PO BID 09/11/16 Albuterol Sulfate 0.042% [Ventolin 0.042% (Half-Strength) -] 1 amp NEB TID PRN 04/22/17 Cyclobenzaprine HCl [Flexeril -] 10 mg PO HS 04/22/17 Acetaminophen [Tylenol .Regular Strength -] 650 mg PO Q6H PRN tablet 07/20/17 Albuterol 2.5/Ipratropium 0.5 [Duoneb -] 1 amp NEB Q4H PRN amp 07/20/17 Aspirin [ASA -] 81 mg PO DAILY tab.chew 07/20/17 Calcium Acetate [Phoslo -] 667 mg PO TIDCM capsule 07/20/17 Levothyroxine [Synthroid -] 25 mcg PO DAILY@0700 tablet 07/20/17 Metoprolol Succinate [Toprol XL -] 12.5 mg PO DAILY tab.sr.24h 07/20/17 Oxycodone HCl/Acetaminophen [Percocet 5-325 mg Tablet] 1 - 2 tab PO TID PRN #10 tab MDD 6 08/30/17 Tamsulosin HCl [Flomax -] 0.4 mg PO DAILY@0830 cap.er.24h 09/11/17 Cyclobenzaprine HCl [Flexeril -] 10 mg PO BID tablet 09/25/17 Guaifenesin [Robitussin -] 10 ml PO Q6H PRN cup 09/25/17 Family Disease History - Family Disease History Family History: Unable to Obtain Family Disease History: Other: Father ( of kidney failure), Mother (muscle problems), Sister (healthy and living, HTN) Physical Exam-ENT Vital Signs: Vital Signs Temperature 97.9 F 11/11/17 07:36 Pulse Rate 80 11/11/17 07:36 Respiratory Rate 20 11/11/17 07:40 Blood Pressure 104/66 11/11/17 07:36 O2 Sat by Pulse Oximetry (%) 95 11/11/17 07:40 Constitutional: Yes: No Distress, Calm Head: Yes: WNL Face: Yes: Other (soft nontender swelling left face with some parotid soft swelling, no discrete nodule, no induration or fluctuance) Oral/Pharynx: Yes: Other (poor dentition, bony swelling of left mandible below premolar, no trismus, tongue normal, normal oropharyngeal airway, voice clear, no stridor or respiratory distress) Outer Ear: Yes: WNL Neck: Yes: WNL, Other (no mass or node) Respiratory: Yes: WNL Imaging - Results Cat Scan: Report Reviewed, Image Reviewed (soft tissue swelling left face, normal paranasal sinuses and mastoids, no thickening or fluid) Problem List - Problems (1) Cellulitis of face Assessment/Plan: left facial cellulitis improving with medical therapy no underlying sinusitis or otomastoiditis known dental problems, pt states has not seen his dentist in many years dental infection was also origin of his problem at last [facility] admission. Recommend: continue medical management as per Medicine and Infectious Disease elevate head of bed local heat prn comfort pt requires dental or oral surgical evaluation and treatment of his chronic dental infections Thank you for consultation, Marco Oseguera MD FACS Code(s): L03.211 - CELLULITIS OF FACE
--- NOTE | 2017-11-11 11:52 | PN ---
Progress Note (short form) - Note Progress Note: No new complaints. Facial swelling improved. Concern about dental abscess will need to be addressed before planing prosthetic graft placement for AV access.
--- NOTE | 2017-11-11 13:07 | PN ---
Progress Note (short form) - Note Progress Note: Renal Follow up for ESRD on HD Pt seen and examined at the bedside currently getting dialysis BP stable goal UF is 2L pt denies any sob Vital Signs Temperature 97.9 F 11/11/17 07:36 Pulse Rate 80 11/11/17 07:36 Respiratory Rate 20 11/11/17 07:40 Blood Pressure 104/66 11/11/17 07:36 O2 Sat by Pulse Oximetry (%) 95 11/11/17 07:40 NAD awake and alert RRR + rales soft NT No LE edema CBC, BMP 11/09/17 11:50 11/09/17 11:50 Current Medications Albuterol/Ipratropium (Duoneb -) 1 amp NEB Q4H PRN PRN Reason: SHORTNESS OF BREATH Last Admin: 11/11/17 03:30 Dose: 1 amp Aspirin (Asa -) 81 mg PO DAILY [facility] Last Admin: 11/11/17 09:24 Dose: 81 mg Calcium Acetate (Phoslo -) 667 mg PO TIDCM [facility] Last Admin: 11/11/17 12:17 Dose: 667 mg Folic Acid (Folic Acid -) 1 mg PO DAILY [facility] Last Admin: 11/11/17 09:24 Dose: 1 mg Heparin Sodium (Porcine) (Heparin -) 5,000 unit SQ BID [facility] Last Admin: 11/11/17 09:26 Dose: 5,000 unit Ampicillin Sodium/Sulbactam (Sodium 3 gm/ Sodium Chloride) 100 mls @ 200 mls/ hr IVPB DAILY [facility] Last Admin: 11/11/17 09:25 Dose: 200 mls/hr Levothyroxine Sodium (Synthroid -) 25 mcg PO DAILY@0700 [facility] Last Admin: 11/11/17 06:04 Dose: 25 mcg Metoprolol Succinate (Toprol Xl -) 12.5 mg PO DAILY [facility] Last Admin: 11/11/17 09:24 Dose: 12.5 mg Sevelamer Carbonate (Renvela -) 1,600 mg PO BIDWM [facility] Last Admin: 11/11/17 08:06 Dose: 1,600 mg Tamsulosin HCl (Flomax -) 0.4 mg PO DAILY@0830 [facility] Last Admin: 11/11/17 08:06 Dose: 0.4 mg 57 year old gentleman with PMhx of ESRD on HD (TTS), Hypertension, CHF, Hx of recurrent pleural effusions, Hx of endocarditis who presented with complaints of facial swelling and with fluid overload. 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
[2017-11-11 15:52] LABS: HEMATOCRIT 40.3 % (35.4-49); HEMOGLOBIN 13.3 GM/dL (11.7-16.9); MEAN PLT VOLUME 10.5 fl (7.5-11.1); PLATELET COUNT 145 K/MM3 (134-434); RBC 4.03 M/mm3 (4.00-5.60); RDW 20.6 % (11.9-15.9); WHITE BLOOD COUNT 4.5 K/mm3 (4.0-10.0)
--- NOTE | 2017-11-11 16:02 | PN ---
Physical Exam: SUBJECTIVE: Patient seen and examined. No new complaints. OBJECTIVE: Vital Signs Period Temp Pulse Resp BP Sys/Anderson Pulse Ox Last 24 Hr 97.7 F-98.4 F 80-91 18-22 84-121/50-71 95-95 PE Neuro: alert,awake, cn 2-12intact HEENT: Left hard mass mandible Pulm: diminished bases with crackles CV: s1 s2 rrr + murmur Abd: s nt nd + bs Ext: RCW permacath, trace le edema Laboratory Results - last 24 hr 11/10/17 11/11/17 13:30 13:50 WBC 4.5 RBC 4.03 Hgb 13.3 Hct 40.3 MCV 100.0 H MCH 33.0 MCHC 33.0 RDW 20.6 H Plt Count 145 MPV 10.5 Hepatitis A Ab Total Negative Hep Bs Antigen Negative Hep Bs Antibody Non reactive Hep B Core Total Ab Negative Active Medications Generic Name Dose Route Start Last Admin Trade Name Freq PRN Reason Stop Dose Admin Albuterol/Ipratropium 1 amp 11/09/17 02:12 11/11/17 03:30 Duoneb - NEB 1 amp Q4H PRN Administration SHORTNESS OF BREATH Aspirin 81 mg 11/09/17 10:00 11/11/17 09:24 Asa - PO 81 mg DAILY [facility] Administration Calcium Acetate 667 mg 11/09/17 08:00 11/11/17 12:17 Phoslo - PO 667 mg TIDCM [facility] Administration Folic Acid 1 mg 11/09/17 10:00 11/11/17 09:24 Folic Acid - PO 1 mg DAILY [facility] Administration Heparin Sodium (Porcine) 5,000 unit 11/09/17 10:00 11/11/17 09:19 Heparin - SQ Not Given BID [facility] Ampicillin Sodium/Sulbactam 100 mls @ 200 mls/hr 11/09/17 19:15 11/11/17 09: 25 Sodium 3 gm/ Sodium Chloride IVPB 200 mls/hr DAILY [facility] Administration Levothyroxine Sodium 25 mcg 11/09/17 07:00 11/11/17 06:04 Synthroid - PO 25 mcg DAILY@0700 [facility] Administration Metoprolol Succinate 12.5 mg 11/09/17 10:00 11/11/17 09:24 Toprol Xl - PO 12.5 mg DAILY [facility] Administration Sevelamer Carbonate 1,600 mg 11/09/17 08:00 11/11/17 08:06 Renvela - PO 1,600 mg BIDWM [facility] Administration Tamsulosin HCl 0.4 mg 11/09/17 08:30 11/11/17 08:06 Flomax - PO 0.4 mg DAILY@0830 [facility] Administration Assessment: 57 year old male with PMhx of ESRD on HD (TTS at [facility]), CHF, Hypertension, MV/TV repair, MRSA endocarditis s/p Bio AVR/MVR [address] [facility], polysubstance abuse admitted with left facial swelling and missed HD session. Plan: 1. Facial cellulitis/dental abscess - Cont unysan - Vanco level with HD - ID seeing - D.w pt he needs to find a outpt dentist of his preference, if not we will have to make an appt for him 2. ESRD on HD - HD tomorrow - Per cardiology pt is a high risk patient but there is currently no absolute cardiac contraindication to having vascular access performed. However, would consider that he might have an active dental abscess and thus consider optimal timing of the procedure. - Placement per Vascular Dr. Larson after oral dental abscess settled 3. ASD -s/p MVR/TVR due to trans-septal puncture, not candidate for closure - ASA daily 4. PAF - Toprol - Poor compliance, ongoing substance abuse 5. Hypothyroid - synthroid 6. Abdominal hernia - No hernia per surgery, no intervention Visit type - Emergency Visit Emergency Visit: Yes ED Registration Date: 11/08/17 Care time: The patient presented to the Emergency Department on the above date and was hospitalized for further evaluation of their emergent condition. - New Patient This patient is new to me today: No - Critical Care Critical Care patient: No
[2017-11-11 16:22] LABS: ANION GAP 11 (8-16); BLOOD UREA NITROGEN 30 mg/dL (7-18); CALCIUM 7.4 mg/dL (8.5-10.1); CHLORIDE 108 mmol/L (98-107); CO2 27 mmol/L (21-32); CREATININE 6.1 mg/dL (0.7-1.3); GLUCOSE,RANDOM 137 mg/dL (74-106); PHOSPHOROUS 3.4 mg/dL (2.5-4.9); POTASSIUM 3.3 mmol/L (3.5-5.1); SODIUM 146 mmol/L (136-145)
--- NOTE | 2017-11-11 19:54 | PN ---
Progress Note, Physician Chief Complaint: Pt alert; c/o abdominal left-sided protrusion when he sits up ("I think I have a hernia"); wants albuterol inhaler he uses at home. History of Present Illness: Patient is a 57-year-old black male past medical history of NIDDM, ESRD, on dialysis Saturdays, missed dialysis on Thursday because patient states he didn't feel well, anemia, asthma, COPD, hypertension, hyperlipidemia, cardiac valve replacement, endocarditis, status post recent admission for left-sided facial swelling presents to the emergency department today with increased left-sided facial swelling. Pt. states he had congestion and states he felt he had a sinus infection. Patient states that he has had left -sided facial swelling for about a month however today he woke up with his eye grossly swollen shut with yellowish discharge. He states he also feels like the left side of his face is more swollen than it is in the past. Patient also states that when EMS arrived he felt short of breath however this resolved with one Combivent. No complaints at this time regarding his breathing in the emergency department. Denies fevers, chills, cough, chest pain, nausea, vomiting , diarrhea, frequency, urgency, hematuria. - Current Medication List Current Medications: Active Medications Albuterol/Ipratropium (Duoneb -) 1 amp NEB Q4H PRN PRN Reason: SHORTNESS OF BREATH Last Admin: 11/11/17 03:30 Dose: 1 amp Aspirin (Asa -) 81 mg PO DAILY [facility] Last Admin: 11/11/17 09:24 Dose: 81 mg Calcium Acetate (Phoslo -) 667 mg PO TIDCM [facility] Last Admin: 11/11/17 17:20 Dose: 667 mg Folic Acid (Folic Acid -) 1 mg PO DAILY [facility] Last Admin: 11/11/17 09:24 Dose: 1 mg Heparin Sodium (Porcine) (Heparin -) 5,000 unit SQ BID [facility] Last Admin: 11/11/17 09:19 Dose: Not Given Ampicillin Sodium/Sulbactam (Sodium 3 gm/ Sodium Chloride) 100 mls @ 200 mls/ hr IVPB DAILY [facility] Last Admin: 11/11/17 09:25 Dose: 200 mls/hr Levothyroxine Sodium (Synthroid -) 25 mcg PO DAILY@0700 [facility] Last Admin: 11/11/17 06:04 Dose: 25 mcg Metoprolol Succinate (Toprol Xl -) 12.5 mg PO DAILY [facility] Last Admin: 11/11/17 09:24 Dose: 12.5 mg Sevelamer Carbonate (Renvela -) 1,600 mg PO BIDWM [facility] Last Admin: 11/11/17 17:20 Dose: 1,600 mg Tamsulosin HCl (Flomax -) 0.4 mg PO DAILY@0830 [facility] Last Admin: 11/11/17 08:06 Dose: 0.4 mg - Objective Vital Signs: Vital Signs Temperature 98.4 F 11/11/17 12:45 Pulse Rate 86 11/11/17 15:00 Respiratory Rate 18 11/11/17 15:00 Blood Pressure 98/52 11/11/17 15:00 O2 Sat by Pulse Oximetry (%) 95 11/11/17 07:40 Constitutional: Yes: Anxious Eyes: Yes: WNL HENT: Yes: WNL Neck: Yes: WNL Cardiovascular: Yes: S1, S2 Respiratory: Yes: Diminished Gastrointestinal: Yes: Soft ...Rectal Exam: Yes: Deferred Genitourinary: No: Anuria Musculoskeletal: Yes: Muscle Weakness Extremities: Yes: Cool Edema: Yes Edema: LUE: 2+ (LUE AV Graft) Peripheral Pulses WNL: Yes Integumentary: Yes: Other (left UE AV graft) Neurological: Yes: Alert, Oriented, Weakness Psychiatric: Yes: WNL Labs: CBC, BMP 11/11/17 13:50 11/11/17 13:50 INR, PTT INR 1.16 (0.82-1.09) H 11/08/17 18:00 Abnormal Lab Results 11/11/17 11/11/17 13:50 13:50 MCV 100.0 H RDW 20.6 H Sodium 146 H Potassium 3.3 L Chloride 108 H BUN 30 H D Creatinine 6.1 H D Random Glucose 137 H D Calcium 7.4 L Problem List - Problems (1) Cellulitis of face Code(s): L03.211 - CELLULITIS OF FACE (2) Dental abscess Assessment/Plan: on Unasyn Code(s): K04.7 - PERIAPICAL ABSCESS WITHOUT SINUS (3) ESRD on hemodialysis Assessment/Plan: HD per head teacher. Code(s): N18.6 - END STAGE RENAL DISEASE; Z99.2 - DEPENDENCE ON RENAL DIALYSIS (4) Acute on chronic diastolic (congestive) heart failure Assessment/Plan: F/u BUN/Cr, electrolytes, Is and Os, daily weight. Code(s): I50.33 - ACUTE ON CHRONIC DIASTOLIC (CONGESTIVE) HEART FAILURE (5) Hypothyroid Code(s): E03.9 - HYPOTHYROIDISM, UNSPECIFIED (6) H/O heart valve replacement with bioprosthetic valve Code(s): Z95.3 - PRESENCE OF XENOGENIC HEART VALVE (7) H/O mitral valve replacement Code(s): Z98.890 - OTHER SPECIFIED POSTPROCEDURAL STATES; Z95.2 - PRESENCE OF PROSTHETIC HEART VALVE (8) HTN (hypertension) Code(s): I10 - ESSENTIAL (PRIMARY) HYPERTENSION (9) NSVT (nonsustained ventricular tachycardia) Assessment/Plan: Continue metoprolol ER; f/u BP and HR. Code(s): I47.2 - VENTRICULAR TACHYCARDIA (10) Paroxysmal A-fib Code(s): I48.0 - PAROXYSMAL ATRIAL FIBRILLATION (11) Hypokalemia Assessment/Plan: Replete K+; keep 4-4.5. F/u Mg level; keep 2-2.3. Code(s): E87.6 - HYPOKALEMIA
[2017-11-11 22:45] LABS: MAGNESIUM 1.9 mg/dL (1.8-2.4)
[2017-11-12] MEDS: LEVOTHYROXINE NA 25 MCG TABLET (FP) PO SCH (06:02)
[2017-11-12] MEDS ORDERED: SODIUM CHLORIDE 250 ML IV PRN (06:55)
--- NOTE | 2017-11-12 07:51 | PN ---
Teaching Attending Note Name of Resident: Alejandro Price ATTENDING PHYSICIAN STATEMENT I saw and evaluated the patient. I reviewed the resident's note and discussed the case with the resident. I agree with the resident's findings and plan as documented. SUBJECTIVE:ID 57 year old male with dental abscess and facial cellulitis Unasyn OBJECTIVE: ASSESSMENT AND PLAN: Selected Entries 11/12/17 11/12/17 02:19 05:11 Temperature 98.7 F Pulse Rate 84 Respiratory 21 Rate Blood Pressure 98/65 Microbiology 11/08/17 18:00 Blood - Peripheral Venous Blood Culture - Preliminary NO GROWTH OBTAINED AFTER 72 HOURS, INCUBATION TO CONTINUE FOR 2 DAYS. 11/08/17 18:00 Blood - Peripheral Venous Blood Culture - Preliminary NO GROWTH OBTAINED AFTER 72 HOURS, INCUBATION TO CONTINUE FOR 2 DAYS. Laboratory Tests 11/11/17 13:50 WBC 4.5 Hgb 13.3 Hct 40.3 Plt Count 145 Assessment Chronic Dental infection with recurrences underlying bone erosions ? osteo Needs dental followup Shantel LEIGH
[2017-11-12] MEDS ORDERED: PT OWN MED DRAWER 7, Y5N ONE (08:10)
[2017-11-12] MEDS: TAMSULOSIN HCL 0.4 MG CAP.ER.24H (FP) PO SCH (08:13)
[2017-11-12] MEDS: CALCIUM ACETATE 667 MG CAPSULE (FP) PO SCH ×3 (08:13→17:32)
[2017-11-12] MEDS: SEVELAMER CARBONATE 800 MG TAB (FP) PO SCH ×2 (08:13→17:32)
[2017-11-12 08:16] LABS: HEMATOCRIT 38.9 % (35.4-49); HEMOGLOBIN 12.6 GM/dL (11.7-16.9); MCH 32.6 pg (25.7-33.7); MCHC 32.3 g/dl (32.0-35.9); MEAN CELL VOLUME 101.2 fl (80-96); MEAN PLT VOLUME 10.1 fl (7.5-11.1); PLATELET COUNT 131 K/MM3 (134-434); RBC 3.84 M/mm3 (4.00-5.60); RDW 20.1 % (11.9-15.9); WHITE BLOOD COUNT 4.2 K/mm3 (4.0-10.0)
[2017-11-12 08:53] LABS: ANION GAP 14 (8-16); BLOOD UREA NITROGEN 35 mg/dL (7-18); CALCIUM 7.9 mg/dL (8.5-10.1); CHLORIDE 107 mmol/L (98-107); CO2 25 mmol/L (21-32); GLUCOSE,RANDOM 83 mg/dL (74-106); PHOSPHOROUS 4.9 mg/dL (2.5-4.9); SODIUM 146 mmol/L (136-145)
--- NOTE | 2017-11-12 09:24 | PN ---
Progress Note, Physician History of Present Illness: No acute events overnight. Patient states swelling has decreased. Patient denies fever, chills, pain in the mouth. Patient completed dialysis yesterday. - Current Medication List Current Medications: Active Medications Albuterol/Ipratropium (Duoneb -) 1 amp NEB Q4H PRN PRN Reason: SHORTNESS OF BREATH Last Admin: 11/11/17 03:30 Dose: 1 amp Aspirin (Asa -) 81 mg PO DAILY [facility] Last Admin: 11/11/17 09:24 Dose: 81 mg Calcium Acetate (Phoslo -) 667 mg PO TIDCM [facility] Last Admin: 11/12/17 08:13 Dose: 667 mg Folic Acid (Folic Acid -) 1 mg PO DAILY [facility] Last Admin: 11/11/17 09:24 Dose: 1 mg Heparin Sodium (Porcine) (Heparin -) 5,000 unit SQ BID [facility] Last Admin: 11/11/17 21:30 Dose: Not Given Ampicillin Sodium/Sulbactam (Sodium 3 gm/ Sodium Chloride) 100 mls @ 200 mls/ hr IVPB DAILY [facility] Last Admin: 11/11/17 09:25 Dose: 200 mls/hr Sodium Chloride (Normal Saline -) 250 mls @ 3,000 mls/hr IV PRN PRN PRN Reason: Hypotension Levothyroxine Sodium (Synthroid -) 25 mcg PO DAILY@0700 [facility] Last Admin: 11/12/17 06:02 Dose: 25 mcg Metoprolol Succinate (Toprol Xl -) 12.5 mg PO DAILY [facility] Last Admin: 11/11/17 09:24 Dose: 12.5 mg Sevelamer Carbonate (Renvela -) 1,600 mg PO BIDWM [facility] Last Admin: 11/12/17 08:13 Dose: 1,600 mg Tamsulosin HCl (Flomax -) 0.4 mg PO DAILY@0830 [facility] Last Admin: 11/12/17 08:13 Dose: 0.4 mg - Objective Vital Signs: Vital Signs Temperature 98.7 F 11/12/17 02:19 Pulse Rate 84 11/12/17 07:24 Respiratory Rate 21 11/12/17 07:25 Blood Pressure 97/62 11/12/17 07:24 O2 Sat by Pulse Oximetry (%) 93 L 11/12/17 07:25 Constitutional: Yes: No Distress, Calm, Poor Hygeine Eyes: Yes: Conjunctiva Clear, EOM Intact, PERRL HENT: Yes: Atraumatic, Normocephalic, Other (Poor dentition. Mild left facial swelling. No erythema. Hard mass on left mental area of chin) Neck: Yes: Supple, Trachea Midline Cardiovascular: Yes: Regular Rate and Rhythm, S1, S2 Respiratory: Yes: Regular, CTA Bilaterally Gastrointestinal: Yes: Normal Bowel Sounds, Soft. No: Tenderness Edema: Yes Edema: LLE: 2+, RLE: 1+ Labs: CBC, BMP 11/12/17 07:55 INR, PTT INR 1.16 (0.82-1.09) H 11/08/17 18:00 Assessment/Plan Assessment: 1. Dental Abscess with cellulitis 2. Bony erosion of mandible Plan: 1. Continue Unasyn 3g daily, renally dosed
[2017-11-12] MEDS: metoPROLOL SUCCINATE 25 MG TAB.SR.24H (FP) PO SCH (09:32)
[2017-11-12] MEDS: ASPIRIN 81 MG CHEWABLE TABLETS PO SCH (09:42)
[2017-11-12] MEDS: FOLIC ACID 1 MG TABLET (FP) PO SCH (09:42)
[2017-11-12] MEDS: AMPICILLIN NA/SULBACTAM NA 3 GM in SODIUM CHLORIDE 100 ML IVPB SCH (09:42)
[2017-11-12] MEDS: HEPARIN NA (PORCINE) 5,000 UNITS/ML 1ML VIAL SQ SCH ×2 (09:43→22:24)
[2017-11-12 09:52] LABS: CREATININE 7.7 mg/dL (0.7-1.3)
--- NOTE | 2017-11-12 11:13 | PN ---
Progress Note, Physician History of Present Illness: seen and examined today in nad. currently on HD. no overnight events. no new complaints. - Current Medication List Current Medications: Active Medications Albuterol/Ipratropium (Duoneb -) 1 amp NEB Q4H PRN PRN Reason: SHORTNESS OF BREATH Last Admin: 11/11/17 03:30 Dose: 1 amp Aspirin (Asa -) 81 mg PO DAILY [facility] Last Admin: 11/12/17 09:42 Dose: 81 mg Calcium Acetate (Phoslo -) 667 mg PO TIDCM [facility] Last Admin: 11/12/17 08:13 Dose: 667 mg Folic Acid (Folic Acid -) 1 mg PO DAILY [facility] Last Admin: 11/12/17 09:42 Dose: 1 mg Heparin Sodium (Porcine) (Heparin -) 5,000 unit SQ BID [facility] Last Admin: 11/12/17 09:43 Dose: Not Given Ampicillin Sodium/Sulbactam (Sodium 3 gm/ Sodium Chloride) 100 mls @ 200 mls/ hr IVPB DAILY [facility] Last Admin: 11/12/17 09:42 Dose: 200 mls/hr Sodium Chloride (Normal Saline -) 250 mls @ 3,000 mls/hr IV PRN PRN PRN Reason: Hypotension Levothyroxine Sodium (Synthroid -) 25 mcg PO DAILY@0700 [facility] Last Admin: 11/12/17 06:02 Dose: 25 mcg Metoprolol Succinate (Toprol Xl -) 12.5 mg PO DAILY [facility] Last Admin: 11/12/17 09:32 Dose: 12.5 mg Sevelamer Carbonate (Renvela -) 1,600 mg PO BIDWM [facility] Last Admin: 11/12/17 08:13 Dose: 1,600 mg Tamsulosin HCl (Flomax -) 0.4 mg PO DAILY@0830 [facility] Last Admin: 11/12/17 08:13 Dose: 0.4 mg - Objective Vital Signs: Vital Signs Temperature 98.8 F 11/12/17 09:15 Pulse Rate 90 11/12/17 10:50 Respiratory Rate 18 11/12/17 10:50 Blood Pressure 93/48 11/12/17 10:50 O2 Sat by Pulse Oximetry (%) 93 L 11/12/17 07:25 Constitutional: Yes: No Distress, Calm Eyes: Yes: Conjunctiva Clear, EOM Intact, PERRL HENT: Yes: Atraumatic, Normocephalic Neck: Yes: Supple, Trachea Midline Cardiovascular: Yes: Regular Rate and Rhythm, Murmur, S1, S2. No: Bradycardia, Tachycardia, Pulse Irregular, Bruit, JVD, Gallop, Rub, S3, S4, Varicosities Respiratory: Yes: Regular, Diminished. No: Rales, Rhonchi, Wheezes Gastrointestinal: Yes: Normal Bowel Sounds, Soft. No: Distention, Tenderness Musculoskeletal: Yes: WNL Extremities: Yes: WNL Edema: Yes Neurological: Yes: Alert, Oriented Psychiatric: Yes: Alert, Oriented Labs: CBC, BMP 11/12/17 07:55 11/12/17 07:55 INR, PTT INR 1.16 (0.82-1.09) H 11/08/17 18:00 - ....Imaging Chest X-ray: Report Reviewed, Image Reviewed EKG: Report Reviewed, Image Reviewed Other: Report Reviewed, Image Reviewed (tele-nsr, pvcs, NSVT) Assessment/Plan IMP: Dental abscess SOB, Pleural effusions ASD PAF NSVT REC: Dental abscess: -ENT evaluation done, pt needs a dentist, pt never saw a dentist after last admission with dental abscess, he thought the antibiotics alone were enough -Abx as indicated -this will most likely be taken care of as an outpatient Preop for Vascular access for HD: -vascular access procedure has been deferred until dental issue resolved SOB:stable appears at baseline -cont volume removal with HD -s/p thoracentesis last admission with symptomatic improvement -volume removal with HD as tolerates ASD: -s/p MVR/TVR due to trans-septal puncture -Evaluated at [facility] for closure after occular TIA, deemed not a candidate for closure (Dr. [place] and Dr. Mc): ongoing cocaine use, poor compliance and concomitant valve dz -cont ASA 81mg daily -no sig change on recent echo PAF:NSR currently -Cont Toprol, not candidate for full AC due to poor compliance, drug use -HR control -cont ASA 81mg daily NSVT:during prior admissions as well as this one -h/o non-obs CAD and normal LV systolic function -cont Toprol as BP tolerates -Keep K and Mg wnl
--- NOTE | 2017-11-12 15:04 | PN ---
Progress Note (short form) - Note Progress Note: Renal Follow up for ESRD on HD Pt seen and examined during dialysis earlier today pt is non-compliant with prescribed HD session wants only 2 hours of dialysis BP stable Goal UF is 2L no sob, chest pain reports loose stools Vital Signs Temperature 98.8 F 11/12/17 09:15 Pulse Rate 84 11/12/17 14:00 Respiratory Rate 21 11/12/17 14:00 Blood Pressure 93/74 11/12/17 14:00 O2 Sat by Pulse Oximetry (%) 93 L 11/12/17 07:25 Intake & Output 11/09/17 11/10/17 11/11/17 11/12/17 23:59 23:59 23:59 23:59 Intake Total 720 240 580 0 Balance 720 240 580 0 Weight 72.575 kg 72.303 kg 71.724 kg NAD awake and alert RRR Dec BS NO LE edema CBC, BMP 11/12/17 07:55 11/12/17 07:55 Current Medications Albuterol/Ipratropium (Duoneb -) 1 amp NEB Q4H PRN PRN Reason: SHORTNESS OF BREATH Last Admin: 11/11/17 03:30 Dose: 1 amp Aspirin (Asa -) 81 mg PO DAILY [facility] Last Admin: 11/12/17 09:42 Dose: 81 mg Calcium Acetate (Phoslo -) 667 mg PO TIDCM [facility] Last Admin: 11/12/17 12:12 Dose: 667 mg Folic Acid (Folic Acid -) 1 mg PO DAILY [facility] Last Admin: 11/12/17 09:42 Dose: 1 mg Heparin Sodium (Porcine) (Heparin -) 5,000 unit SQ BID [facility] Last Admin: 11/12/17 09:43 Dose: Not Given Ampicillin Sodium/Sulbactam (Sodium 3 gm/ Sodium Chloride) 100 mls @ 200 mls/ hr IVPB DAILY [facility] Last Admin: 11/12/17 09:42 Dose: 200 mls/hr Sodium Chloride (Normal Saline -) 250 mls @ 3,000 mls/hr IV PRN PRN PRN Reason: Hypotension Levothyroxine Sodium (Synthroid -) 25 mcg PO DAILY@0700 [facility] Last Admin: 11/12/17 06:02 Dose: 25 mcg Metoprolol Succinate (Toprol Xl -) 12.5 mg PO DAILY [facility] Last Admin: 11/12/17 09:32 Dose: 12.5 mg Sevelamer Carbonate (Renvela -) 1,600 mg PO BIDWM [facility] Last Admin: 11/12/17 08:13 Dose: 1,600 mg Tamsulosin HCl (Flomax -) 0.4 mg PO DAILY@0830 [facility] Last Admin: 11/12/17 08:13 Dose: 0.4 mg 57 year old gentleman with PMhx of ESRD on HD (TTS), Hypertension, CHF, Hx of recurrent pleural effusions, Hx of endocarditis who presented with complaints of facial swelling and with fluid overload. #ESRD on HD with fluid overload Pt is tolerating dialysis with 2kg UF will continue pt on TTS schedule as inpatient low sodium diet, fluid restriction #Dental Abcess Abx as per ID Dental evaluation #CHF Cardiology following \UF with HD as tolerated Thank you Abdirashid Guthrie DO
[2017-11-12] MEDS: ALBUTEROL SO4 2.5/IPRATROPIUM 0.5 INH SOL 3 ML VIAL.NEB. NEB PRN (22:24)
--- NOTE | 2017-11-12 22:30 | PN ---
Progress Note, Physician History of Present Illness: Pt w/ multiple complaints - Current Medication List Current Medications: Active Medications Albuterol/Ipratropium (Duoneb -) 1 amp NEB Q4H PRN PRN Reason: SHORTNESS OF BREATH Last Admin: 11/12/17 22:24 Dose: 1 amp Aspirin (Asa -) 81 mg PO DAILY [facility] Last Admin: 11/12/17 09:42 Dose: 81 mg Calcium Acetate (Phoslo -) 667 mg PO TIDCM [facility] Last Admin: 11/12/17 17:32 Dose: 667 mg Folic Acid (Folic Acid -) 1 mg PO DAILY [facility] Last Admin: 11/12/17 09:42 Dose: 1 mg Heparin Sodium (Porcine) (Heparin -) 5,000 unit SQ BID [facility] Last Admin: 11/12/17 22:24 Dose: Not Given Sodium Chloride (Normal Saline -) 250 mls @ 3,000 mls/hr IV PRN PRN PRN Reason: Hypotension Levothyroxine Sodium (Synthroid -) 25 mcg PO DAILY@0700 [facility] Last Admin: 11/12/17 06:02 Dose: 25 mcg Metoprolol Succinate (Toprol Xl -) 12.5 mg PO DAILY [facility] Last Admin: 11/12/17 09:32 Dose: 12.5 mg Sevelamer Carbonate (Renvela -) 1,600 mg PO BIDWM [facility] Last Admin: 11/12/17 17:32 Dose: 1,600 mg Tamsulosin HCl (Flomax -) 0.4 mg PO DAILY@0830 [facility] Last Admin: 11/12/17 08:13 Dose: 0.4 mg - Objective Vital Signs: Vital Signs Temperature 98.2 F 11/12/17 18:00 Pulse Rate 92 H 11/12/17 22:00 Respiratory Rate 22 11/12/17 22:00 Blood Pressure 91/62 11/12/17 22:00 O2 Sat by Pulse Oximetry (%) 93 L 11/12/17 22:00 HENT: Yes: Other (Lt facial swelling) Neck: Yes: WNL, Supple Cardiovascular: Yes: WNL, Regular Rate and Rhythm Respiratory: Yes: WNL, Regular, CTA Bilaterally Gastrointestinal: Yes: WNL, Normal Bowel Sounds, Soft Labs: CBC, BMP 11/12/17 07:55 11/12/17 07:55 INR, PTT INR 1.16 (0.82-1.09) H 11/08/17 18:00 Problem List - Problems (1) Cellulitis of face Assessment/Plan: Cont IV unasyn Pt has not followed up w/ dentist as outpt Code(s): L03.211 - CELLULITIS OF FACE (2) ESRD on hemodialysis Assessment/Plan: Pt has been noncomplaint w/ his outpt dialysis May need psych consult due to his noncomplaince Cont phjoslo Code(s): N18.6 - END STAGE RENAL DISEASE; Z99.2 - DEPENDENCE ON RENAL DIALYSIS (3) Anemia in CKD (chronic kidney disease) Code(s): N18.9 - CHRONIC KIDNEY DISEASE, UNSPECIFIED; D63.1 - ANEMIA IN CHRONIC KIDNEY DISEASE (4) CHF (congestive heart failure) Code(s): I50.9 - HEART FAILURE, UNSPECIFIED (5) COPD (chronic obstructive pulmonary disease) Code(s): J44.9 - CHRONIC OBSTRUCTIVE PULMONARY DISEASE, UNSPECIFIED (6) Hypothyroid Code(s): E03.9 - HYPOTHYROIDISM, UNSPECIFIED (7) Paroxysmal A-fib Code(s): I48.0 - PAROXYSMAL ATRIAL FIBRILLATION (8) HTN (hypertension) Code(s): I10 - ESSENTIAL (PRIMARY) HYPERTENSION
[2017-11-13] MEDS: LEVOTHYROXINE NA 25 MCG TABLET (FP) PO SCH (06:19)
[2017-11-13] MEDS: ALBUTEROL SO4 2.5/IPRATROPIUM 0.5 INH SOL 3 ML VIAL.NEB. NEB PRN (08:21)
--- NOTE | 2017-11-13 08:50 | DS ---
Physical Exam: SUBJECTIVE: Patient seen and examined. He feels well, he found 2 dentists on his own. He is ready to go home OBJECTIVE: Vital Signs Period Temp Pulse Resp BP Sys/Anderson Pulse Ox Last 24 Hr 98.0 F-98.8 F 84-97 18-22 85-103/48-76 93-93 PE Neuro: alert,awake, cn 2-12intact HEENT: Left hard mass mandible Pulm: diminished bases with crackles CV: s1 s2 rrr + murmur Abd: s nt nd + bs Ext: RCW permacath, trace le edema Laboratory Results - last 24 hr 11/12/17 11/12/17 07:55 10:00 Sodium 146 H Potassium 4.0 D Chloride 107 Carbon Dioxide 25 Anion Gap 14 BUN 35 H Creatinine 7.7 H* D Random Glucose 83 D Calcium 7.9 L Phosphorus 4.9 D Stool Occult Blood Positive HOSPITAL COURSE: Date of Admission:11/08/17 Date of Discharge: 11/13/17 Minutes to complete discharge: 37 Discharge Summary Reason For Visit: CELLULITIS OF FACE,CONGESTIVE HERT FAILURE,NYHA Current Active Problems Acute on chronic diastolic (congestive) heart failure (Acute) Cellulitis of face (Acute) Dental abscess (Acute) Hypokalemia (Acute) CHF (congestive heart failure), NYHA class II (Chronic) ESRD on hemodialysis (Chronic) Hospital Course: Initial Hospital Course: Briefly, this 57 year old male past medical history of NIDDM,anemia, asthma, COPD, HTN, HLD, cardiac valve replacement, endocarditis, ESRD, on dialysis T// Thu. He missed HD Thursday d/t not feeling well. Previously admitted with L sided facial swelling, treated with abx, now presented again with worsening left facial swelling with his left eye grossly shut with yellow discharge. When EMS arrived he felt short of breath however this resolved with one Combivent. Subsequent Hospital Course/Progress Note/DC summary: Assessment: 57 year old male with PMhx of ESRD on HD (TTS at [facility]), CHF, Hypertension, MV/TV repair, MRSA endocarditis s/p Bio AVR/MVR 2014 at [facility], polysubstance abuse admitted with left facial swelling and missed HD session. Plan: 1. Facial cellulitis/dental abscess - s/p IV unysan and vanco with improvement - Home with augmentin 875 BID x10 days - Outpt dental appt to be made, social welfare administrator aware, pt aware, 2 dentists have been found, pt aware to make an appt. 2. ESRD on HD - Resume HD as outpt - Per cardiology pt is a high risk patient but there is currently no absolute cardiac contraindication to having vascular access performed. However, would consider that he might have an active dental abscess and thus consider optimal timing of the procedure. - Placement per Vascular Dr. Larson after oral dental abscess settled 3. ASD -s/p MVR/TVR due to trans-septal puncture, not candidate for closure - ASA daily 4. PAF - Toprol - Poor compliance, ongoing substance abuse 5. Hypothyroid - synthroid 6. Abdominal hernia - No hernia per surgery, no intervention Dispo: - Home with above plan, meds and follow up Condition: Stable - Instructions Diet, Activity, Other Instructions: Please return to the ED for any new, persistent, or worsening symptoms. Follow up with your PCP in 1 week Resume home medications as directed Take antibiotics as directed and until completed Make an appt with a Dentist to get your took abscess evaluated Referrals: Golden San MD [Staff Physician] - Shania Gee MD [Staff Physician] - Abdirashid Guthrie MD [Staff Physician] - Disposition: VNS/HOME HEALTH CARE - Home Medications Comprehensive Discharge Medication List: Ambulatory Orders Folic Acid 1 mg PO DAILY 09/11/16 Sevelamer Carbonate [Renvela -] 1,600 mg PO BID 09/11/16 Albuterol Sulfate 0.042% [Ventolin 0.042% (Half-Strength) -] 1 amp NEB TID PRN 04/22/17 Acetaminophen [Tylenol .Regular Strength -] 650 mg PO Q6H PRN tablet 07/20/17 Albuterol 2.5/Ipratropium 0.5 [Duoneb -] 1 amp NEB Q4H PRN amp 07/20/17 Aspirin [ASA -] 81 mg PO DAILY tab.chew 07/20/17 Calcium Acetate [Phoslo -] 667 mg PO TIDCM capsule 07/20/17 Levothyroxine [Synthroid -] 25 mcg PO DAILY@0700 tablet 07/20/17 Metoprolol Succinate [Toprol XL -] 12.5 mg PO DAILY tab.sr.24h 07/20/17 Oxycodone HCl/Acetaminophen [Percocet 5-325 mg Tablet] 1 - 2 tab PO TID PRN #10 tab MDD 6 08/30/17 Tamsulosin HCl [Flomax -] 0.4 mg PO DAILY@0830 cap.er.24h 09/11/17 Cyclobenzaprine HCl [Flexeril -] 10 mg PO BID tablet 09/25/17 Guaifenesin [Robitussin -] 10 ml PO Q6H PRN cup 09/25/17 Amoxicillin/Potassium Clav [Augmentin 875-125 Tablet] 1 each PO BID #20 tablet 11/13/17 This patient is new to me today: No Emergency Visit: Yes ED Registration Date: 11/08/17 Care time: The patient presented to the Emergency Department on the above date and was hospitalized for further evaluation of their emergent condition. Critical Care patient: No - Discharge Referral Referred to [facility] No
[2017-11-13] MEDS: ASPIRIN 81 MG CHEWABLE TABLETS PO SCH (10:05)
[2017-11-13] MEDS: metoPROLOL SUCCINATE 25 MG TAB.SR.24H (FP) PO SCH (10:05)
[2017-11-13] MEDS: HEPARIN NA (PORCINE) 5,000 UNITS/ML 1ML VIAL SQ SCH (10:06)
[2017-11-13] MEDS: SEVELAMER CARBONATE 800 MG TAB (FP) PO SCH (10:07)
[2017-11-13] MEDS: FOLIC ACID 1 MG TABLET (FP) PO SCH (10:08)
[2017-11-13] MEDS: CALCIUM ACETATE 667 MG CAPSULE (FP) PO SCH (10:08)
[2017-11-13] MEDS: TAMSULOSIN HCL 0.4 MG CAP.ER.24H (FP) PO SCH (10:08)
--- NOTE | 2017-11-13 10:39 | PN ---
Progress Note, Physician History of Present Illness: seen and examined today, being discharged today. no new complaints. no overnight events. - Current Medication List Current Medications: Active Medications Albuterol/Ipratropium (Duoneb -) 1 amp NEB Q4H PRN PRN Reason: SHORTNESS OF BREATH Last Admin: 11/13/17 08:21 Dose: 1 amp Aspirin (Asa -) 81 mg PO DAILY [facility] Last Admin: 11/13/17 10:05 Dose: 81 mg Calcium Acetate (Phoslo -) 667 mg PO TIDCM [facility] Last Admin: 11/13/17 10:08 Dose: 667 mg Folic Acid (Folic Acid -) 1 mg PO DAILY [facility] Last Admin: 11/13/17 10:08 Dose: 1 mg Heparin Sodium (Porcine) (Heparin -) 5,000 unit SQ BID [facility] Last Admin: 11/13/17 10:06 Dose: Not Given Sodium Chloride (Normal Saline -) 250 mls @ 3,000 mls/hr IV PRN PRN PRN Reason: Hypotension Levothyroxine Sodium (Synthroid -) 25 mcg PO DAILY@0700 [facility] Last Admin: 11/13/17 06:19 Dose: 25 mcg Metoprolol Succinate (Toprol Xl -) 12.5 mg PO DAILY [facility] Last Admin: 11/13/17 10:05 Dose: 12.5 mg Sevelamer Carbonate (Renvela -) 1,600 mg PO BIDWM [facility] Last Admin: 11/13/17 10:07 Dose: 1,600 mg Tamsulosin HCl (Flomax -) 0.4 mg PO DAILY@0830 [facility] Last Admin: 11/13/17 10:08 Dose: 0.4 mg - Objective Vital Signs: Vital Signs Temperature 98.4 F 11/13/17 06:00 Pulse Rate 82 11/13/17 09:44 Respiratory Rate 22 11/13/17 09:44 Blood Pressure 82/69 11/13/17 09:44 O2 Sat by Pulse Oximetry (%) 93 L 11/13/17 09:00 Constitutional: Yes: No Distress, Calm Eyes: Yes: Conjunctiva Clear, EOM Intact HENT: Yes: Atraumatic, Normocephalic Cardiovascular: Yes: Regular Rate and Rhythm, Murmur, S1, S2. No: Bradycardia, Tachycardia, Pulse Irregular, Bruit, JVD, Gallop, Rub, S3, S4, Varicosities Respiratory: Yes: Regular, Diminished. No: Rales, Rhonchi, Wheezes Gastrointestinal: Yes: Normal Bowel Sounds, Soft Edema: No Neurological: Yes: Alert, Oriented Psychiatric: Yes: Alert, Oriented Labs: CBC, BMP 11/12/17 07:55 11/12/17 07:55 INR, PTT INR 1.16 (0.82-1.09) H 11/08/17 18:00 - ....Imaging Chest X-ray: Report Reviewed, Image Reviewed EKG: Report Reviewed, Image Reviewed Other: Report Reviewed, Image Reviewed (tele-nsr, pvcs, short nsvt) Assessment/Plan IMP: Dental abscess SOB, Pleural effusions ASD PAF NSVT REC: Dental abscess: -ENT evaluation done, pt needs a dentist, pt never saw a dentist after last admission with dental abscess, he thought the antibiotics alone were enough -Abx as indicated -called pts executive secretary social welfare, dentist appointment is being worked on -outpatient f/up Preop for Vascular access for HD: -vascular access procedure has been deferred until dental issue resolved SOB:stable appears at baseline -cont volume removal with HD -s/p thoracentesis last admission with symptomatic improvement -volume removal with HD as tolerates ASD: -s/p MVR/TVR due to trans-septal puncture -Evaluated at [facility] for closure after occular TIA, deemed not a candidate for closure (Dr. [place] and Dr. Mc): ongoing cocaine use, poor compliance and concomitant valve dz -cont ASA 81mg daily -no sig change on recent echo PAF:NSR currently -Cont Toprol, not candidate for full AC due to poor compliance, drug use -HR control -cont ASA 81mg daily NSVT:during prior admissions as well as this one -h/o non-obs CAD and normal LV systolic function -cont Toprol as BP tolerates -Keep K and Mg wnl
[2017-11-13 15:26] VITALS: BP 106/63; PULSE 84; TEMP 98.5
== END 2017-11-13 14:14 | disposition home health service (06) | DRG 383 ==
LOC: JER 16:24 → JERBED 20:38 → J2W 11-09 00:54
PROVIDERS: ADMIT Internal Medicine; ATTEND Nurse Practitioner Acute Care
PROC: 5A09357 Assistance with Respiratory Ventilation, Less than 24 Consecutive Hours, Continuous Positive Airway Pressure (ICD-10-PCS; 2017-11-08)
PROC: 5A1D70Z Performance of Urinary Filtration, Intermittent, Less than 6 Hours Per Day (ICD-10-PCS; principal; 2017-11-10)
DX: L03.211 Cellulitis of face (principal); I13.2 Hypertensive heart and chronic kidney disease with heart failure and with stage 5 chronic kidney disease, or end stage renal disease; I50.33 Acute on chronic diastolic (congestive) heart failure; I47.2 Ventricular tachycardia; E11.22 Type 2 diabetes mellitus with diabetic chronic kidney disease; N18.6 End stage renal disease; E87.70 Fluid overload, unspecified; N25.0 Renal osteodystrophy; I36.1 Nonrheumatic tricuspid (valve) insufficiency; I48.0 Paroxysmal atrial fibrillation; K04.7 Periapical abscess without sinus; M85.88 Other specified disorders of bone density and structure, other site; Z99.2 Dependence on renal dialysis; J44.9 Chronic obstructive pulmonary disease, unspecified; E78.5 Hyperlipidemia, unspecified; Z95.4 Presence of other heart-valve replacement; B19.20 Unspecified viral hepatitis C without hepatic coma; F12.10 Cannabis abuse, uncomplicated; I25.10 Atherosclerotic heart disease of native coronary artery without angina pectoris; Z87.891 Personal history of nicotine dependence; E03.9 Hypothyroidism, unspecified; F14.10 Cocaine abuse, uncomplicated; E87.6 Hypokalemia; Z91.15 Patient's noncompliance with renal dialysis; D63.1 Anemia in chronic kidney disease; N40.0 Benign prostatic hyperplasia without lower urinary tract symptoms
CPT/HCPCS: 36415; 70486-TC; 71045-TC-FY; 80048; 80053; 82272; 82550; 82553; 83735; 83880; 84100; 84484; 85025; 85027; 85610; 86704; 86706; 86708; 86850; 86900; 86901; 87040; 87340; 93005; 93010; 94640; 94660; 99285-25; G0480; J1644; J2997; P9047

== ENCOUNTER 2017-11-25 20:22 | Inpatient (IN) | payer OTHER ==
--- NOTE | 2017-11-25 21:00 | PDOC ---
History of Present Illness - General Stated Complaint: SOB Time Seen by Provider: 11/25/17 20:41 - History of Present Illness Initial Comments: 11/25/17 21:02 57 yo M with h/o HTN, HLD, NIDDM, atshma, COPD,CHF, MV insufficiency s/p MVR ( bio), non occlusive CAD, ESRD ( Dialysis ,, ), and recent admission for dental abscess BIBA for SOB. EMS reports patient found in bed alert and oritented, but slighlty lethargic with 88 % 02 on RA. O2 sat improved following 5 L O2 NC 99%. Did not receive duoneb therapy. Patient reports 3 day of stable, non productive cough, SOB, and stable Waldron. Home O2 4 liters unchanged, and AM duoneb treatment. Pt. reports chronically low O2 ~85% at baseline. No asx. CP, ext swelling. Also endorses 3 days of loose watery stools, w/ decreased PO intake and w/ no asx. BPR, N/V, or abdominal pain. Reports that he missed dialysis yesterday d/t general malaise "not feeling well." Denies CP, F/C, N/V, abdominal pain, urinary complaints, lightheadedness, weakness, sensory changes. 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 Past History - Past Medical History Allergies/Adverse Reactions: Allergies Allergy/AdvReac Type Severity Reaction Status Date / Time Iodinated Contrast- Oral and Allergy Verified 11/08/17 16:40 IV Dye CONTRAST Allergy Hives Uncoded 11/08/17 16:40 Home Medications: Ambulatory Orders Folic Acid 1 mg PO DAILY 09/11/16 Sevelamer Carbonate [Renvela -] 1,600 mg PO BID 09/11/16 Albuterol Sulfate 0.042% [Ventolin 0.042% (Half-Strength) -] 1 amp NEB TID PRN 04/22/17 Acetaminophen [Tylenol .Regular Strength -] 650 mg PO Q6H PRN tablet 07/20/17 Albuterol 2.5/Ipratropium 0.5 [Duoneb -] 1 amp NEB Q4H PRN amp 07/20/17 Aspirin [ASA -] 81 mg PO DAILY tab.chew 07/20/17 Calcium Acetate [Phoslo -] 667 mg PO TIDCM capsule 07/20/17 Levothyroxine [Synthroid -] 25 mcg PO DAILY@0700 tablet 07/20/17 Metoprolol Succinate [Toprol XL -] 12.5 mg PO DAILY tab.sr.24h 07/20/17 Oxycodone HCl/Acetaminophen [Percocet 5-325 mg Tablet] 1 - 2 tab PO TID PRN #10 tab MDD 6 08/30/17 Tamsulosin HCl [Flomax -] 0.4 mg PO DAILY@0830 cap.er.24h 09/11/17 Cyclobenzaprine HCl [Flexeril -] 10 mg PO BID tablet 09/25/17 Guaifenesin [Robitussin -] 10 ml PO Q6H PRN cup 09/25/17 Albuterol Sulfate Inhaler - [Ventolin HFA Inhaler -] 1 - 2 inh PO Q4H PRN #1 inhaler 11/13/17 Amoxicillin/Potassium Clav [Augmentin 875-125 Tablet] 1 each PO BID #20 tablet 11/13/17 Anemia: Yes Asthma: Yes Cancer: No Cardiac Disorders: Yes (2X VALVE REPLACEMENT,endocarditis) CVA: No COPD: Yes CHF: No Dementia: No Diabetes: No Dialysis: Yes () GI Disorders: Yes Disorders: Yes (ENLARGED PROSTATE) HTN: (LOW BP) Hypercholesterolemia: Yes Liver Disease: No Seizures: No Thyroid Disease: No - Surgical History Abdominal Surgery: No Appendectomy: No Cardiac Surgery: Yes (2 VALVES REPLACED 04/2015) Cholecystectomy: No Lung Surgery: Yes (h/o MRSA pleural tissue) Neurologic Surgery: No Orthopedic Surgery: No - Immunization History Immunization Up to Date: No - Suicide/Smoking/Psychosocial Hx Smoking Status: Yes Smoking History: Never smoked Have you smoked in the past 12 months: Yes Number of Cigarettes Smoked Daily: 3 'Breaking Loose' booklet given: 09/10/17 Hx Alcohol Use: No Drug/Substance Use Hx: No Substance Use Type: None Hx Substance Use Treatment: Yes (rehab, detox) Review of Systems - Review of Systems Comments:: 11/25/17 20:59 GENERAL/CONSTITUTIONAL: No fever or chills. No weakness. HEAD, EYES, EARS, NOSE AND THROAT: No change in vision. No ear pain or discharge. No sore throat. CARDIOVASCULAR: + SOB. No chest pain. RESPIRATORY: No cough, wheezing, or hemoptysis. GASTROINTESTINAL: + Diarrhea. No nausea, vomiting, or constipation. GENITOURINARY: No dysuria, frequency, or change in urination. MUSCULOSKELETAL: No joint or muscle swelling or pain. No neck or back pain. SKIN: No rash NEUROLOGIC: No headache, vertigo, loss of consciousness, or change in strength/ sensation. ENDOCRINE: No increased thirst. No abnormal weight change HEMATOLOGIC/LYMPHATIC: No anemia, easy bleeding, or history of blood clots. ALLERGIC/IMMUNOLOGIC: No hives or skin allergy. *Physical Exam - Physical Exam Comments: 11/25/17 21:00 GENERAL: Awake, alert, and fully oriented, in no acute distress HEAD: No signs of trauma, normocephalic, atraumatic EYES: PERRLA, EOMI, sclera anicteric, conjunctiva clear ENT: Auricles normal inspection, hearing grossly normal, nares patent, oropharynx clear without exudates. Moist mucosa NECK: Normal ROM, supple, no lymphadenopathy, JVD, or masses LUNGS: Diminished breath sounds BL . Absent rhonci or rales. No distress, speaks full sentences. HEART: Regular rate and rhythm, normal S1 and S2, no murmurs, rubs or gallops, peripheral pulses normal and equal bilaterally. ABDOMEN: Soft,slight LLQ ttp, normoactive bowel sounds. No guarding, no rebound. No masses. Neg suprapubic pain, or CVA ttp. EXTREMITIES : R shoulder port. Non functioning L AV brachial fistula. Normal inspection, Normal range of motion, no edema. No clubbing or cyanosis. SKIN: Warm, Dry, normal turgor, no rashes or lesions noted ED Treatment Course - LABORATORY CBC & Chemistry Diagram: 11/25/17 23:13 11/26/17 00:39 Medical Decision Making - Medical Decision Making 11/25/17 21:26 57 yo M with h/o HTN, HLD, NIDDM, atshma, COPD, CHF, MV insufficiency s/p MVR ( bio), non occlusive CAD, ESRD ( Dialysis ,, ), and recent admission for dental abscess BIBA for SOB after being found in bed A&O, but slightly lethargic with 88 % 02 on RA, improved to 90 % following 5 L O2 NC. Pt. reports 3 day of stable, non productive cough, SOB, and stable Waldron. Stable O2 4 liters unchanged, and AM duoneb treatment.Reports chronically low O2 at baseline ~85%. Missed yesterday dialysis tx. + 3 days of loose watery stools, w/ no asx. BPR , N/V, or abdominal pain. Denies CP, pleurisy, F/C, N/V, abdominal pain, urinary complaints, lightheadedness, weakness, ext swelling, sensory changes. Physical exam noteable for diminished breath sounds BL. Currently HDS on 6 L 02 non rebreather. Will consider COPD exacerbation. Vs. asthma exacerbation in setting of worsening cough and SOB. Although, pt. does not appear to be fluid overloaded, will consider aCHF exacerbation vs. fluid overland 2/2 ESRD and recent missed dialysis. R/o ACS/DE, PNA. Diarrhea most likely self limiting and viral etiology. Pt. non toxic appearing, AF, and benign abdomen. Low suspicion of more serious GI pathology. ED Course: CBC, CMP, Cardiac, BNP EKG, CXR 11/25/17 22:19 CXR: BL pleural effusions and pulm venous congestion. Little change from prior study (11/08/17) 11/25/17 23:27 EKG: NSR with low voltage QRS waves, and artifact in lead V2. Absent EMILIE, STD. TWI in leads V4, V5. 11/26/17 01:34 BNP: 41347 Cr: 10.4 Trop: 10.[address] Smith Tele/inpt 11/26/17 01:40 Pt. stable on non rebreather. *DC/Admit/Observation/Transfer Diagnosis at time of Disposition: Fluid overload, ESRD on hemodialysis, CHF (congestive heart failure), SOB ( shortness of breath) - Discharge Dispostion Admit: Yes - Referrals - Patient Instructions - Post Discharge Activity
--- NOTE | 2017-11-25 21:59 | PDOC ---
Attending Attestation - HPI HPI: 11/25/17 22:04 The patient is a 57 year old male, with a significant past medical history of ESRD on dialysis (//Thu), hypertension, CHF, COPD, CAD, asthma, who presents to the emergency department via EMS, with shortness of breath. The patient states he has been having approx. 3 days of shortness of breath and non productive cough. The patient also states he has had loose watery stools for the past 3 days. The patient reports he missed his recent dialysis treatment yesterday secondary to not feeling well. He denies any recent fevers, chills, headache or dizziness. He denies any recent nausea, vomit. He denies any recent chest pain. He denies any recent dysuria, frequency, urgency or hematuria. Allergies: Iodinated Contrast - Oral and IV Dye [CONTRAST] Documentation prepared by Jez Reyes, acting as certified medical coder for Antonio Sanchez DO. <Jez Reyes - Last Filed: 11/25/17 22:04> - Resident Resident Name: Diego Ordoñez - ED Attending Attestation I have performed the following: I have examined & evaluated the patient, The case was reviewed & discussed with the resident, I agree w/resident's findings & plan, Exceptions are as noted - Physicial Exam PE: 11/26/17 00:48 Physical Exam General Appearance: Yes: Appropriately Dressed. No: Apparent Distress, Intoxicated HEENT: positive: EOMI, HERLINDA, Normal ENT Inspection, Normal Voice, TMs Normal, Pharynx Normal. negative: Pale Conjunctivae, Photophobia, Scleral Icterus (R), Scleral Icterus (L) Neck: positive: Trachea midline, Normal Thyroid, Supple. negative: Tender, Rigid, Carotid bruit, Stridor, Lymphadenopathy (R), Lymphadenopathy (L), Thyromegaly Respiratory/Chest: positive: decreased Breath Sounds. negative: Chest Tender, Respiratory Distress, Accessory Muscle Use, Labored Respiration, RES, Crackles, Rales, Rhonchi, Stridor, Wheezing, Dullness Cardiovascular: positive: Regular Rhythm, Regular Rate, S1, S2. negative: Edema , JVD, Murmur, Bradycardia, Tachycardia Vascular Pulses: Dorsalis-Pedis (R): 2+, Doralis-Pedis (L): 2+ Gastrointestinal/Abdominal: positive: Normal Bowel Sounds, Flat, Soft. negative : Tender, Organomegaly, Pulsatile Mass, Increased Bowel Sounds, Decreased BS, Distended, Guarding, Rebound, Hernia, Hepatomegaly, Spleenomegaly Lymphatic: negative: Adenopathy, Tenderness Musculoskeletal: positive: Normal Inspection. negative: CVA Tenderness, Decreased Range of Motion Extremity: positive: Normal Capillary Refill, Normal Inspection, Normal Range of Motion, Pelvis Stable. negative: Tender, Pedal Edema, Swelling, Erythema Integumentary: positive: Normal Color, Dry, Warm. negative: Cyanotic, Erythema , Jaundice, Rash Neurologic: positive: cookie breaker II-XII NML intact, Fully Oriented, Alert, Normal Mood/ Affect, Motor Strength 5/5. negative: EOM Palsy, Facial Droop, Sensory Deficit - Medical Decision Making 11/26/17 00:49 Pt will be admitted for dialysis in the morning <Antonio Sanchez - Last Filed: 11/26/17 19:28>
[2017-11-25] MEDS: ALBUTEROL SO4 2.5/IPRATROPIUM 0.5 INH SOL 3 ML VIAL.NEB. NEB SCH ×4 (22:20→23:21)
[2017-11-25] MEDS ORDERED: ALBUTEROL SO4 2.5/IPRATROPIUM 0.5 INH SOL 3 ML VIAL.NEB. NEB ONE (22:39)
[2017-11-25 23:37] LABS: BASO % 1.4 % (0-2.0); EOS % 2.4 % (0-4.5); HEMOGLOBIN 14.9 GM/dL (11.7-16.9); LYMPH % 9.8 % (8-40); MCH 32.5 pg (25.7-33.7); MCHC 31.7 g/dl (32.0-35.9); MEAN CELL VOLUME 102.4 fl (80-96); MEAN PLT VOLUME 10.6 fl (7.5-11.1); MONO % 8.7 % (3.8-10.2); NEUT % 77.7 % (42.8-82.8); PLATELET COUNT 150 K/MM3 (134-434); RBC 4.59 M/mm3 (4.00-5.60); RDW 19.5 % (11.9-15.9); WHITE BLOOD COUNT 4.1 K/mm3 (4.0-10.0)
[2017-11-26 00:27] LABS: INR 1.07 (0.82-1.09); PROTHROMBIN TIME (PATIENT) 12.1 SEC (9.98-11.88)
[2017-11-26 01:14] LABS: ALBUMIN 1.9 g/dl (3.4-5.0); ANION GAP 15 (8-16); BILIRUBIN,TOTAL 0.4 mg/dL (0.2-1.0); BLOOD UREA NITROGEN 51 mg/dL (7-18); CALCIUM 8.4 mg/dL (8.5-10.1); CHLORIDE 107 mmol/L (98-107); CO2 23 mmol/L (21-32); GLUCOSE,RANDOM 109 mg/dL (74-106); SGPT/ALT 37 U/L (12-78); SODIUM 145 mmol/L (136-145); TOT PROT 5.4 g/dl (6.4-8.2)
[2017-11-26 01:20] LABS: ALK PHOS 99 U/L (45-117); N-TERMINAL BNP 27368.38 pg/ml (5-125)
[2017-11-26 01:26] LABS: POTASSIUM 4.8 mmol/L (3.5-5.1); SGOT/AST 40 U/L (15-37)
[2017-11-26 01:27] LABS: CREATININE 10.4 mg/dL (0.7-1.3)
--- NOTE | 2017-11-26 01:56 | HP ---
Admitting History and Physical - Primary Care Physician PCP: Shania Gee - Admission Chief Complaint: SOB, Diarrhea History of Present Illness: This is a 57 y/o man with a past medical history of ESRD (HD-) with multiple co morbidities. Who presents to the ED with SOB and diarrhea x 3-4 days. Patient reports missing HD, dialyzed last . Patient reports having a dry cough, with MARQUIS. Patient reports having loose stool secondary to taking Augmentin for a tooth abscess. He reports discontinuing it. Patient reports having a hernia for years, to the left side of his abdomen which he attributes to his SOB. Nephrology- Dr. Cleveland Mendenhall History Source: Patient, Medical Record Limitations to Obtaining History: Poor Historian, Uncooperative - Past Medical History Cardiovascular: Yes: CAD, CHF (Chronic diastolic HF, Severe Pulm HTN), HTN, Hyperlipdemia, Mitral Insufficiency (s/p MVR (bio)), Pulmonary Hypertension, Other (Severe Tricuspid regurgitation, Endocarditis s/p TVR/MVR, recurrent bacteremia) Pulmonary: Yes: Asthma, COPD, O2 Dependent (4L), Other (PHTN) Gastrointestinal: Yes: Ascites, Constipation Hepatobiliary: Yes: Hepatitis C Renal/: Yes: Renal Failure, Hemodialysis Heme/Onc: Yes: Anemia Psych: Yes: Addictions Musculoskeletal: Yes: Bursitis (left shoulder pain) - Past Surgical History Past Surgical History: Yes: Hernia Repair (11/19) - Smoking History Smoking history: Never smoked Have you smoked in the past 12 months: Yes Aproximately how many cigarettes per day: 3 - Alcohol/Substance Use Hx Alcohol Use: No History of Substance Use: reports: Cocaine, Marijuana - Social History ADL: Independent 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 History of Recent Travel: No Home Medications - Allergies Allergies/Adverse Reactions: Allergies Allergy/AdvReac Type Severity Reaction Status Date / Time Iodinated Contrast- Oral and Allergy Verified 11/08/17 16:40 IV Dye CONTRAST Allergy Hives Uncoded 11/08/17 16:40 - Home Medications Home Medications: Ambulatory Orders Folic Acid 1 mg PO DAILY 09/11/16 Sevelamer Carbonate [Renvela -] 1,600 mg PO BID 09/11/16 Albuterol Sulfate 0.042% [Ventolin 0.042% (Half-Strength) -] 1 amp NEB TID PRN 04/22/17 Acetaminophen [Tylenol .Regular Strength -] 650 mg PO Q6H PRN tablet 07/20/17 Albuterol 2.5/Ipratropium 0.5 [Duoneb -] 1 amp NEB Q4H PRN amp 07/20/17 Aspirin [ASA -] 81 mg PO DAILY tab.chew 07/20/17 Calcium Acetate [Phoslo -] 667 mg PO TIDCM capsule 07/20/17 Levothyroxine [Synthroid -] 25 mcg PO DAILY@0700 tablet 07/20/17 Oxycodone HCl/Acetaminophen [Percocet 5-325 mg Tablet] 1 - 2 tab PO TID PRN #10 tab MDD 6 08/30/17 Tamsulosin HCl [Flomax -] 0.4 mg PO DAILY@0830 cap.er.24h 09/11/17 Cyclobenzaprine HCl [Flexeril -] 10 mg PO BID tablet 09/25/17 Guaifenesin [Robitussin -] 10 ml PO Q6H PRN cup 09/25/17 Albuterol Sulfate Inhaler - [Ventolin HFA Inhaler -] 1 - 2 inh PO Q4H PRN #1 inhaler 11/13/17 Home Medications (free text): Calcium 667mg po TID. Sevelamer 1600mg po TID. Tamsulosin 0.4mg po QD. Asa 81mg po QD. Midodrine 5mg o Q8h. Folic Acid 1mg QD. Calcitrol 0.25mg po Mon, Wed, Fri only. Cyclobenzaprine 10mg po QD. MVI 1 tab po QD. Isosorbide 30mg po QD (not taking). Augmentin 1 tab po BID (not taking) Family Disease History - Family Disease History Family Disease History: Other: Father ( of kidney failure), Mother (muscle problems), Sister (healthy and living, HTN) Review of Systems - Review of Systems Constitutional: reports: No Symptoms Eyes: reports: No Symptoms HENT: reports: No Symptoms Neck: reports: No Symptoms Cardiovascular: reports: Shortness of Breath Respiratory: reports: Cough, SOB, SOB on Exertion Gastrointestinal: reports: Diarrhea Breasts: reports: No Symptoms Reported Musculoskeletal: reports: No Symptoms Integumentary: reports: No Symptoms Neurological: reports: No Symptoms Endocrine: reports: No Symptoms Hematology/Lymphatic: reports: No Symptoms Psychiatric: reports: No Symptoms Physical Examination Vital Signs: Vital Signs Temperature 98.3 F 11/25/17 21:41 Pulse Rate 95 H 11/25/17 21:41 Respiratory Rate 20 11/25/17 21:41 Blood Pressure 99/64 11/25/17 21:41 O2 Sat by Pulse Oximetry (%) 95 11/25/17 21:41 Constitutional: Yes: Thin Eyes: Yes: WNL, Conjunctiva Clear, EOM Intact, PERRL HENT: Yes: Other (dry mucous membranes) Cardiovascular: Yes: Regular Rate and Rhythm, Murmur (systolic), S1, S2, Other ( Permacath- RCW) Respiratory: Yes: Cough, Diminished, On Nasal O2, SOB, SOB on Exertion Gastrointestinal: Yes: Normal Bowel Sounds, Tenderness (LUQ). No: Hernia ...Rectal Exam: Yes: Deferred Breast(s): Yes: WNL Musculoskeletal: Yes: WNL Extremities: Yes: WNL Edema: No Peripheral Pulses WNL: Yes Neurological: Yes: WNL, Alert, Oriented, Cran Nerves II-XII Intact ...Motor Strength: WNL Psychiatric: Yes: Agitated Labs: CBC, BMP 11/25/17 23:13 11/26/17 00:39 Laboratory Results - last 24 hr 11/25/17 11/25/17 11/25/17 23:13 23:13 23:13 WBC 4.1 RBC 4.59 Hgb 14.9 D Hct 47.0 D MCV 102.4 H MCH 32.5 MCHC 31.7 L RDW 19.5 H Plt Count 150 MPV 10.6 Neutrophils % 77.7 Lymphocytes % 9.8 D Monocytes % 8.7 Eosinophils % 2.4 Basophils % 1.4 PT with INR 12.10 H INR 1.07 Puncture Site ABG pH ABG pCO2 at Pt Temp ABG pO2 at Pt Temp ABG HCO3 ABG O2 Sat (Measured) ABG O2 Content ABG Base Excess Ez Test Carboxyhemoglobin Methemoglobin O2 Delivery Device Oxygen Flow Rate Sodium Potassium Chloride Carbon Dioxide Anion Gap BUN Creatinine Creat Clearance w eGFR Random Glucose Calcium Total Bilirubin AST ALT Alkaline Phosphatase Creatine Kinase Cancelled Creatine Kinase Index CK-MB (CK-2) Troponin I Cancelled B-Natriuretic Peptide Total Protein Albumin 03/11/25/17 11/26/17 23:13 23:13 00:39 WBC RBC Hgb Hct MCV MCH MCHC RDW Plt Count MPV Neutrophils % Lymphocytes % Monocytes % Eosinophils % Basophils % PT with INR INR Puncture Site ABG pH ABG pCO2 at Pt Temp ABG pO2 at Pt Temp ABG HCO3 ABG O2 Sat (Measured) ABG O2 Content ABG Base Excess Ez Test Carboxyhemoglobin Methemoglobin O2 Delivery Device Oxygen Flow Rate Sodium Cancelled 145 Potassium Cancelled 4.8 Chloride Cancelled 107 Carbon Dioxide Cancelled 23 Anion Gap Cancelled 15 BUN Cancelled 51 H D Creatinine Cancelled 10.4 H* D Creat Clearance w eGFR Cancelled 5.20 Random Glucose Cancelled 109 H D Calcium Cancelled 8.4 L Total Bilirubin Cancelled 0.4 AST Cancelled 40 H D ALT Cancelled 37 D Alkaline Phosphatase Cancelled 99 D Creatine Kinase 341 H Creatine Kinase Index 3.1 CK-MB (CK-2) 10.58 H Troponin I 0.15 H D B-Natriuretic Peptide Cancelled 44183.38 H Total Protein Cancelled 5.4 L Albumin Cancelled 1.9 L 11/26/17 02:35 WBC RBC Hgb Hct MCV MCH MCHC RDW Plt Count MPV Neutrophils % Lymphocytes % Monocytes % Eosinophils % Basophils % PT with INR INR Puncture Site Right radial ABG pH 7.46 H ABG pCO2 at Pt Temp 28.5 L ABG pO2 at Pt Temp 54.5 L ABG HCO3 20.2 L ABG O2 Sat (Measured) 85.3 L ABG O2 Content 15.4 ABG Base Excess -2.0 Ez Test Positive Carboxyhemoglobin 2.1 H Methemoglobin 0.9 O2 Delivery Device N/c Oxygen Flow Rate 3 l Sodium Potassium Chloride Carbon Dioxide Anion Gap BUN Creatinine Creat Clearance w eGFR Random Glucose Calcium Total Bilirubin AST ALT Alkaline Phosphatase Creatine Kinase Creatine Kinase Index CK-MB (CK-2) Troponin I B-Natriuretic Peptide Total Protein Albumin Intake & Output 11/23/17 11/24/17 11/25/17 11/26/17 23:59 23:59 23:59 23:59 Weight 72.575 kg Imaging - Results Chest X-ray: Report Reviewed, Image Reviewed EKG: Image Reviewed Assessment/Plan This is a 57 y/o man with a PMHx of ESRD, HTN, CAD, CHF, MV Insufficiency, HLD, NIDDM, Asthma, Cocaine Abuse. Admit to Telemetry for ESRD, Acute on Chronic Diastolic HF, Elevated Troponin. Plan: 1. ESRD - HD (, , ) - Patient missed dialysis now in fluid overload, BNP 60313, Cr 10.4 Spo2 88% now 90's on 4L - Appreciate Nephrology Consult- HD Management - Continue Renvela, Folic Acid 2. Acute on Chronic Systolic & Diastolic HF - Likely secondary to missed dialysis - Cardiac monitoring - BNP 41479 - Last Echo 08/14/17 showed: mod pleural effusion, small pericardial effusion (< 1cm), mild MR, mod dilated LA, RA, LVSF-normal, RVSF mildly reduced - s/p Thoracentesis 09/2017 - Appreciate Cardiology consult - ABG-7.46/28.5/54.5/20.2 on 3L - O2 changed from NC to Venti mask 50% - EKG- NSR with sinus arrhythmia, possible right ventricular hypertrophy, anterolateral infarct, age undetermined, no change compared to prior study 2017 - Continue home meds 3. Elevated Troponin - Likely Demand Ischemia - Trop I 0.15 at baseline - Serial Enzymes - continue cardiac monitoring 4. Elevated BNP - at baseline - no Lasix 2/2 CKD, would benefit for HD 5. HTN - stable - Monitor BP, continue home meds with parameters 6. CAD - stable - s/p MV/TV replacement - patient denies CP - continue Asa, Metoprolol 7. Abdominal Pain, Diarrhea - Patient reports chronic Left sided abdominal pain 2/2 hernia - Recent ABX use - Per surgical consult on last visit- no evidence of hernia - Obtain stool culture r/o C diff - Will continue to monitor, treat accordingly 8. HLD - no current med - last lipid panel 06/2017- wnl 9. Asthma - stable - Duonebs prn 10. NIDDM - stable - BGMs - ISS 11. FEN - Fluid Restriction - Replete lytes prn - Renal, Low Na Diet 12. DVT ppx - OOB - SCDs - Heparin SQ Code Status: Full Code Dispo: Requires Inpatient Care Visit type - Emergency Visit Emergency Visit: Yes ED Registration Date: 11/25/17 Care time: The patient presented to the Emergency Department on the above date and was hospitalized for further evaluation of their emergent condition. - New Patient This patient is new to me today: Yes Date on this admission: 11/26/17 - Critical Care Critical Care patient: No Hospitalist Screening - Colonoscopy Questionnaire Colonoscopy Questionnaire: Colonoscopy Questionnaire - Patient: 50 - 75 years old and never had a screening colonoscopy: No History of colon or rectal polyps, or CA: No History of IBD, Crohn's disease or UC: No History of abdominal radiation therapy as a child: No - Relative: 1 with colon or rectal CA, or polyps at age 60 or younger: No Colon or rectal CA diagnosed at age 45 or younger: No Multiple relatives with colon or rectal CA: No - Outcome: Screening Result: Negative Screen
[2017-11-26 02:46] LABS: ARTERIAL BLD GAS O2 SATURATION 85.3 % (90-98.9); ARTERIAL BLOOD GAS PCO2 28.5 mmHg (35-45); ARTERIAL BLOOD GAS PO2 54.5 mmHg (80-100); ARTERIAL BLOOD GAS pH 7.46 (7.35-7.45); CARBOXYHEMOGLOBIN 2.1 gm% (0.5-2.0)
[2017-11-26 02:57] LABS: ALLENS TEST POSITIVE
[2017-11-26] MEDS: INSULIN SLIDING SCALE (NOVOLOG) 1 VIAL SQ SCH ×3 (06:00→17:48)
[2017-11-26] MEDS ORDERED: PT OWN MED DRAWER 7, Y5N ONE ×2 (08:38→13:04)
[2017-11-26] MEDS: MULTIVITAMINS (DAILY MVI) TABLET (FP) PO SCH (09:43)
[2017-11-26] MEDS: FOLIC ACID 1 MG TABLET (FP) PO SCH (09:43)
[2017-11-26] MEDS: SEVELAMER CARBONATE 800 MG TAB (FP) PO SCH ×3 (09:43→18:11)
[2017-11-26] MEDS: HEPARIN NA (PORCINE) 5,000 UNITS/ML 1ML VIAL SQ SCH ×2 (09:43→21:18)
[2017-11-26] MEDS: ASPIRIN 81 MG CHEWABLE TABLETS PO SCH (09:43)
[2017-11-26] MEDS: TAMSULOSIN HCL 0.4 MG CAP.ER.24H (FP) PO SCH (09:43)
--- NOTE | 2017-11-26 11:11 | EKG ---
Test Reason : Blood Pressure : / mmHG Vent. Rate : 082 BPM Atrial Rate : 082 BPM P-R Int : 156 ms QRS Dur : 074 ms QT Int : 350 ms P-R-T Axes : 063 159 079 degrees QTc Int : 408 ms NORMAL SINUS RHYTHM WITH SINUS ARRHYTHMIA POSSIBLE RIGHT VENTRICULAR HYPERTROPHY ANTEROLATERAL INFARCT (CITED ON OR BEFORE 19-AUG-2017) ABNORMAL ECG WHEN COMPARED WITH ECG OF 08-NOV-2017 17:23, PREMATURE VENTRICULAR COMPLEXES ARE NO LONGER PRESENT QUESTIONABLE CHANGE IN INITIAL FORCES OF LATERAL LEADS QT HAS SHORTENED Confirmed by ARIANE LEIGH, JUDITH ([id number]) on 11/26/2017 11:11:05 AM Referred By: Confirmed By:JUDITH THAKKAR MD
[2017-11-26] MEDS ORDERED: SODIUM CHLORIDE 250 ML IV PRN ×2 (12:02→12:46)
--- NOTE | 2017-11-26 13:18 | PN ---
Progress Note, Physician History of Present Illness: pt admitted with diarrhea. recently discharged has dental abscess was on antibiotics. has not yet seen a dentist. 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 States he is at his baseline aside from his persistent diarrhea. No other new complaints. no chest pain, no change in baseline dyspnea, no palpitations. - Current Medication List Current Medications: Active Medications Albumin Human (Albumin Human 25%) 12.5 gm IVPB Q30M [facility] Stop: 11/26/17 14:31 Aspirin (Asa -) 81 mg PO DAILY [facility] Last Admin: 11/26/17 09:43 Dose: 81 mg Folic Acid (Folic Acid -) 1 mg PO DAILY [facility] Last Admin: 11/26/17 09:43 Dose: 1 mg Heparin Sodium (Porcine) (Heparin -) 5,000 unit SQ BID [facility] Last Admin: 11/26/17 09:43 Dose: Not Given Sodium Chloride (Normal Saline -) 250 mls @ 3,000 mls/hr IV PRN PRN PRN Reason: Hypotension during Dialysis Stop: 11/27/17 12:01 Sodium Chloride (Normal Saline -) 250 mls @ 3,000 mls/hr IV PRN PRN PRN Reason: Hypotension during Dialysis Stop: 11/27/17 12:46 Insulin Aspart (Novolog Vial Sliding Scale -) 1 vial SQ TIDAC [facility] PRN Reason: Protocol Last Admin: 11/26/17 11:59 Dose: Not Given Midodrine (Proamatine -) 10 mg PO ONCE ONE Stop: 11/26/17 13:31 Multivitamins/Minerals/Vitamin C (Tab-A-Vit -) 1 tab PO DAILY [facility] Last Admin: 11/26/17 09:43 Dose: 1 tab Sevelamer Carbonate (Renvela -) 1,600 mg PO TIDCM [facility] Last Admin: 11/26/17 12:40 Dose: Not Given Tamsulosin HCl (Flomax -) 0.4 mg PO DAILY@0830 [facility] Last Admin: 11/26/17 09:43 Dose: 0.4 mg - Objective Vital Signs: Vital Signs Temperature 97.8 F 11/26/17 06:00 Pulse Rate 80 11/26/17 06:00 Respiratory Rate 20 11/26/17 06:00 Blood Pressure 110/78 11/26/17 06:00 O2 Sat by Pulse Oximetry (%) 90 L 11/26/17 06:00 Constitutional: Yes: No Distress, Calm Eyes: Yes: Conjunctiva Clear, EOM Intact, PERRL HENT: Yes: Atraumatic, Normocephalic Neck: Yes: Supple, Trachea Midline Cardiovascular: Yes: Regular Rate and Rhythm, Murmur, S1, S2. No: Bradycardia, Tachycardia, Pulse Irregular, Bruit, JVD, Gallop, Rub, S3, S4, Varicosities Respiratory: Yes: Regular, Diminished. No: Rales, Rhonchi, Wheezes Gastrointestinal: Yes: Normal Bowel Sounds, Soft. No: Distention, Tenderness Musculoskeletal: Yes: Muscle Weakness Extremities: Yes: Other Edema: No Peripheral Pulses WNL: Yes Neurological: Yes: Alert, Oriented Psychiatric: Yes: Alert, Oriented Labs: CBC, BMP 11/25/17 23:13 11/26/17 00:39 INR, PTT INR 1.07 (0.82-1.09) 11/25/17 23:13 - ....Imaging Chest X-ray: Report Reviewed, Image Reviewed EKG: Report Reviewed, Image Reviewed (ekg-nsr 82bpm, anterolateral infarct pattern, low voltage, nsst) Other: Report Reviewed, Image Reviewed (tele-nsr, pvcs, couplets, short NSVT 3 beats, 4 beats) Assessment/Plan IMP: Dental abscess SOB, Pleural effusions ASD PAF NSVT REC: Diarrhea -as per PMD Dental abscess: -ENT evaluation done last visit, pt needs to see a dentist -Abx as indicated -outpatient f/up -vascular access procedure has been deferred until dental issue resolved SOB:stable appears at baseline, missed HD -cont volume removal with HD -s/p thoracentesis recent admission with symptomatic improvement -volume removal with HD as tolerates ASD: -s/p MVR/TVR due to trans-septal puncture -Evaluated at [facility] for closure after occular TIA, deemed not a candidate for closure (Dr. Washington and Dr. Mc): ongoing cocaine use, poor compliance and concomitant valve dz -cont ASA 81mg daily -no sig change on recent echo PAF:NSR currently -Cont Toprol, not candidate for full AC due to poor compliance, drug use -HR control -cont ASA 81mg daily NSVT:during prior admissions as well as this one -h/o non-obs CAD and normal LV systolic function -cont Toprol as BP tolerates -Keep K and Mg wnl Ok to dc tele
[2017-11-26] MEDS ORDERED: MIDODRINE HCL 5 MG TABLET PO ONE (13:30)
--- NOTE | 2017-11-26 15:54 | CONSULT ---
Consult - text type - Consultation Consultation Note: Renal consult for ESRD and Volume overload This is a 57 year old gentleman with PMhx of ESRD on HD, Cardiomyopahty, Chronic Hypotension, ASD, S/p MVR/TVR with recent admission for dental abcess presented with complaints of diarrhea and sob and pt found to have volume overload. Pt reports his last dialysis was 1 week ago. Denies any CP, Abd pain, N/V. + waterly stools even after he stopped his antibiotics. + SOB, no cough, fever, chills. Has some swelling on his left leg. PMhx: as above Allergies: NKDA Family hx: NC Social Hx: Hx of Cocaine use ROS: as per HPI, all other pertinent ros negative Home Medications Medication Instructions Recorded Folic Acid 1 mg PO DAILY 09/11/16 Sevelamer Carbonate [Renvela -] 1,600 mg PO BID 09/11/16 Albuterol Sulfate 0.042% [Ventolin 1 amp NEB TID PRN 04/22/17 0.042% (Half-Strength) -] Acetaminophen [Tylenol .Regular 650 mg PO Q6H PRN tablet 07/20/17 Strength -] Albuterol 2.5/Ipratropium 0.5 1 amp NEB Q4H PRN amp 07/20/17 [Duoneb -] Aspirin [ASA -] 81 mg PO DAILY tab.chew 07/20/17 Calcium Acetate [Phoslo -] 667 mg PO TIDCM capsule 07/20/17 Levothyroxine [Synthroid -] 25 mcg PO DAILY@0700 tablet 07/20/17 Oxycodone HCl/Acetaminophen 1 - 2 tab PO TID PRN #10 tab MDD 6 08/30/17 [Percocet 5-325 mg Tablet] Tamsulosin HCl [Flomax -] 0.4 mg PO DAILY@0830 cap.er.24h 09/11/17 Cyclobenzaprine HCl [Flexeril -] 10 mg PO BID tablet 09/25/17 Guaifenesin [Robitussin -] 10 ml PO Q6H PRN cup 09/25/17 Albuterol Sulfate Inhaler - 1 - 2 inh PO Q4H PRN #1 inhaler 11/13/17 [Ventolin HFA Inhaler -] Isosorbide Mononitrate [Isosorbide 30 mg PO ONCE 11/26/17 Mononitrate ER] Midodrine HCl 5 mg PO TID 11/26/17 Vital Signs Temperature 98.9 F 11/26/17 14:57 Pulse Rate 60 11/26/17 15:20 Respiratory Rate 18 11/26/17 15:20 Blood Pressure 98/60 11/26/17 15:20 O2 Sat by Pulse Oximetry (%) 90 L 11/26/17 06:00 Intake & Output 11/23/17 11/24/17 11/25/17 11/26/17 23:59 23:59 23:59 23:59 Intake Total 550 Balance 550 Weight 72.575 kg 70.942 kg NAD awake and alert RRR, No M/R Dec BS at lung bases soft NT/ND Abd + edema in left leg, no edema in right leg no clubbing or cyanosis CBC, BMP 11/25/17 23:13 11/26/17 00:39 Current Medications Aspirin (Asa -) 81 mg PO DAILY [facility] Last Admin: 11/26/17 09:43 Dose: 81 mg Folic Acid (Folic Acid -) 1 mg PO DAILY [facility] Last Admin: 11/26/17 09:43 Dose: 1 mg Heparin Sodium (Porcine) (Heparin -) 5,000 unit SQ BID [facility] Last Admin: 11/26/17 09:43 Dose: Not Given Sodium Chloride (Normal Saline -) 250 mls @ 3,000 mls/hr IV PRN PRN PRN Reason: Hypotension during Dialysis Stop: 11/27/17 12:01 Sodium Chloride (Normal Saline -) 250 mls @ 3,000 mls/hr IV PRN PRN PRN Reason: Hypotension during Dialysis Stop: 11/27/17 12:46 Insulin Aspart (Novolog Vial Sliding Scale -) 1 vial SQ TIDAC [facility] PRN Reason: Protocol Last Admin: 11/26/17 11:59 Dose: Not Given Multivitamins/Minerals/Vitamin C (Tab-A-Vit -) 1 tab PO DAILY [facility] Last Admin: 11/26/17 09:43 Dose: 1 tab Sevelamer Carbonate (Renvela -) 1,600 mg PO TIDCM [facility] Last Admin: 11/26/17 12:40 Dose: Not Given Tamsulosin HCl (Flomax -) 0.4 mg PO DAILY@0830 [facility] Last Admin: 11/26/17 09:43 Dose: 0.4 mg 57 year old gentleman with PMhx of ESRD on HD, Cardiomyopahty, Chronic Hypotension, ASD, S/p MVR/TVR with recent admission for dental abcess presented with complaints of diarrhea and sob and pt found to have volume overload. #ESRD on HD with volume overload for dialysis today with UF as tolerated will use midodrine and albumin to maintain BP to allow for UF will continue HD 3x weekly as inpatient dose all meds for intermittent HD #Diarrhea with recent Abx use ? etiology, check stool studies #Unilateral leg swelling check Doppler of the LE r/o DVT #Renal Osteodystrophy Trend PHos continue renvela #Dental Abcess off Abx ? need for further treatment will need dental follow up as outpatient Thank you Will follow Abdirashid Guthrie DO
[2017-11-26] MEDS: ALBUMIN HUMAN 25% 12.5 GM/50 ML VIAL IVPB SCH ×2 (17:33→17:34)
[2017-11-26 17:42] LABS: BASO % 1.2 % (0-2.0); EOS % 3.2 % (0-4.5); HEMOGLOBIN 13.3 GM/dL (11.7-16.9); LYMPH % 8.4 % (8-40); MCH 32.6 pg (25.7-33.7); MCHC 32.4 g/dl (32.0-35.9); MEAN CELL VOLUME 100.6 fl (80-96); MEAN PLT VOLUME 10.3 fl (7.5-11.1); MONO % 7.5 % (3.8-10.2); NEUT % 79.7 % (42.8-82.8); PLATELET COUNT 148 K/MM3 (134-434); RBC 4.07 M/mm3 (4.00-5.60); RDW 19.1 % (11.9-15.9); WHITE BLOOD COUNT 3.8 K/mm3 (4.0-10.0)
[2017-11-26 18:17] LABS: ANION GAP 11 (8-16); BLOOD UREA NITROGEN 23 mg/dL (7-18); CALCIUM 7.9 mg/dL (8.5-10.1); CHLORIDE 108 mmol/L (98-107); CO2 29 mmol/L (21-32); GLUCOSE,RANDOM 153 mg/dL (74-106); MAGNESIUM 2.3 mg/dL (1.8-2.4); PHOSPHOROUS 2.6 mg/dL (2.5-4.9); POTASSIUM 3.5 mmol/L (3.5-5.1); SODIUM 148 mmol/L (136-145)
[2017-11-26 18:52] LABS: ADD RBC MORPHOLOGY YES; PLATELET ESTIMATE ADEQUATE
[2017-11-26 18:53] LABS: ANISOCYTOSIS 1+; MACROCYTOSIS 1+; OVALOCYTE 1+
[2017-11-26] MEDS: ALBUTEROL SO4 2.5/IPRATROPIUM 0.5 INH SOL 3 ML VIAL.NEB. NEB PRN (21:00)
[2017-11-26] MEDS: guaiFENesin 200 MG/10 ML 10 ML UNIT-DOSE CUPS PO PRN (21:38)
--- NOTE | 2017-11-26 22:31 | PN ---
Progress Note, Physician History of Present Illness: Pt c/o diarrhea - Current Medication List Current Medications: Active Medications Albuterol/Ipratropium (Duoneb -) 1 amp NEB Q6H PRN PRN Reason: ASTHMA Aspirin (Asa -) 81 mg PO DAILY [facility] Last Admin: 11/26/17 09:43 Dose: 81 mg Folic Acid (Folic Acid -) 1 mg PO DAILY [facility] Last Admin: 11/26/17 09:43 Dose: 1 mg Guaifenesin (Robitussin -) 5 ml PO Q6H PRN PRN Reason: COUGH Last Admin: 11/26/17 21:38 Dose: 5 ml Heparin Sodium (Porcine) (Heparin -) 5,000 unit SQ BID [facility] Last Admin: 11/26/17 21:18 Dose: Not Given Sodium Chloride (Normal Saline -) 250 mls @ 3,000 mls/hr IV PRN PRN PRN Reason: Hypotension during Dialysis Stop: 11/27/17 12:01 Sodium Chloride (Normal Saline -) 250 mls @ 3,000 mls/hr IV PRN PRN PRN Reason: Hypotension during Dialysis Stop: 11/27/17 12:46 Insulin Aspart (Novolog Vial Sliding Scale -) 1 vial SQ TIDAC [facility] PRN Reason: Protocol Last Admin: 11/26/17 17:48 Dose: Not Given Multivitamins/Minerals/Vitamin C (Tab-A-Vit -) 1 tab PO DAILY [facility] Last Admin: 11/26/17 09:43 Dose: 1 tab Sevelamer Carbonate (Renvela -) 1,600 mg PO TIDCM [facility] Last Admin: 11/26/17 18:11 Dose: Not Given Tamsulosin HCl (Flomax -) 0.4 mg PO DAILY@0830 [facility] Last Admin: 11/26/17 09:43 Dose: 0.4 mg - Objective Vital Signs: Vital Signs Temperature 98.8 F 11/26/17 17:00 Pulse Rate 70 11/26/17 17:00 Respiratory Rate 18 11/26/17 17:00 Blood Pressure 103/52 11/26/17 17:00 O2 Sat by Pulse Oximetry (%) 90 L 11/26/17 09:00 HENT: Yes: WNL Neck: Yes: WNL, Supple Cardiovascular: Yes: WNL, Regular Rate and Rhythm Respiratory: Yes: WNL, Regular, CTA Bilaterally Gastrointestinal: Yes: WNL, Normal Bowel Sounds, Soft Labs: CBC, BMP 11/26/17 16:30 11/26/17 16:50 INR, PTT INR 1.07 (0.82-1.09) 11/25/17 23:13 Problem List - Problems (1) Diarrhea Assessment/Plan: Pt has been on antibxs due to dental abscess Await cultures GI consult Code(s): R19.7 - DIARRHEA, UNSPECIFIED (2) ESRD on hemodialysis Assessment/Plan: Hemodialysis as per renal Code(s): N18.6 - END STAGE RENAL DISEASE; Z99.2 - DEPENDENCE ON RENAL DIALYSIS (3) Acute on chronic diastolic (congestive) heart failure Code(s): I50.33 - ACUTE ON CHRONIC DIASTOLIC (CONGESTIVE) HEART FAILURE (4) Hypotension Assessment/Plan: Cont midodrine Code(s): I95.9 - HYPOTENSION, UNSPECIFIED (5) Hypothyroidism Assessment/Plan: Cont levothyroxine Code(s): E03.9 - HYPOTHYROIDISM, UNSPECIFIED (6) Anemia in CKD (chronic kidney disease) Code(s): N18.9 - CHRONIC KIDNEY DISEASE, UNSPECIFIED; D63.1 - ANEMIA IN CHRONIC KIDNEY DISEASE (7) COPD (chronic obstructive pulmonary disease) Code(s): J44.9 - CHRONIC OBSTRUCTIVE PULMONARY DISEASE, UNSPECIFIED (8) Elevated troponin I level Code(s): R74.8 - ABNORMAL LEVELS OF OTHER SERUM ENZYMES
[2017-11-27] MEDS: guaiFENesin 200 MG/10 ML 10 ML UNIT-DOSE CUPS PO PRN ×2 (02:40→19:38)
[2017-11-27] MEDS: ALBUTEROL SO4 2.5/IPRATROPIUM 0.5 INH SOL 3 ML VIAL.NEB. NEB PRN ×3 (02:43→20:05)
[2017-11-27] MEDS: INSULIN SLIDING SCALE (NOVOLOG) 1 VIAL SQ SCH ×3 (06:07→17:08)
[2017-11-27 07:24] LABS: ANION GAP 13 (8-16); BLOOD UREA NITROGEN 38 mg/dL (7-18); CALCIUM 7.9 mg/dL (8.5-10.1); CHLORIDE 109 mmol/L (98-107); CO2 23 mmol/L (21-32); GLUCOSE,RANDOM 92 mg/dL (74-106); SODIUM 145 mmol/L (136-145)
--- NOTE | 2017-11-27 09:14 | PN ---
Progress Note, Physician Chief Complaint: TELE: NSR with short runs NSVT (3 beats longest) - Current Medication List Current Medications: Active Medications Albuterol/Ipratropium (Duoneb -) 1 amp NEB Q6H PRN PRN Reason: ASTHMA Last Admin: 11/27/17 07:49 Dose: 1 amp Aspirin (Asa -) 81 mg PO DAILY [facility] Last Admin: 11/26/17 09:43 Dose: 81 mg Folic Acid (Folic Acid -) 1 mg PO DAILY [facility] Last Admin: 11/26/17 09:43 Dose: 1 mg Guaifenesin (Robitussin -) 5 ml PO Q6H PRN PRN Reason: COUGH Last Admin: 11/27/17 02:40 Dose: 5 ml Heparin Sodium (Porcine) (Heparin -) 5,000 unit SQ BID [facility] Last Admin: 11/26/17 21:18 Dose: Not Given Sodium Chloride (Normal Saline -) 250 mls @ 3,000 mls/hr IV PRN PRN PRN Reason: Hypotension during Dialysis Stop: 11/27/17 12:01 Sodium Chloride (Normal Saline -) 250 mls @ 3,000 mls/hr IV PRN PRN PRN Reason: Hypotension during Dialysis Stop: 11/27/17 12:46 Insulin Aspart (Novolog Vial Sliding Scale -) 1 vial SQ TIDAC [facility] PRN Reason: Protocol Last Admin: 11/27/17 06:07 Dose: Not Given Multivitamins/Minerals/Vitamin C (Tab-A-Vit -) 1 tab PO DAILY [facility] Last Admin: 11/26/17 09:43 Dose: 1 tab Sevelamer Carbonate (Renvela -) 1,600 mg PO TIDCM [facility] Last Admin: 11/26/17 18:11 Dose: Not Given Tamsulosin HCl (Flomax -) 0.4 mg PO DAILY@0830 [facility] Last Admin: 11/26/17 09:43 Dose: 0.4 mg - Objective Vital Signs: Vital Signs Temperature 97.9 F 11/27/17 08:27 Pulse Rate 95 H 11/27/17 08:27 Respiratory Rate 16 11/27/17 08:27 Blood Pressure 121/59 11/27/17 08:27 O2 Sat by Pulse Oximetry (%) 90 L 11/27/17 05:00 Constitutional: Yes: No Distress Cardiovascular: Yes: Regular Rate and Rhythm Respiratory: Yes: Other (chronically decreased breath sounds at bases.) Gastrointestinal: Yes: Soft Edema: No Neurological: Yes: Alert Labs: CBC, BMP 11/26/17 16:30 INR, PTT INR 1.07 (0.82-1.09) 11/25/17 23:13 Microbiology Laboratory Tests 11/26/17 11/26/17 11/26/17 14:30 16:30 16:50 WBC 3.8 L Hgb 13.3 D Plt Count 148 Sodium Creatinine Troponin I 0.16 H Stool Occult Blood Positive 11/26/17 11/27/17 16:50 06:15 WBC Hgb Plt Count Sodium Pending Creatinine Pending Troponin I 0.16 H Stool Occult Blood - ....Imaging EKG: Image Reviewed Assessment/Plan IMP: Dental abscess SOB, Pleural effusions ASD PAF NSVT REC: Diarrhea -as per PMD -C. Diff pending. Dental abscess: -ENT evaluation done last visit, pt needs to see a dentist -Abx as indicated, defer to PMD -outpatient f/up -vascular access procedure has been deferred until dental issue resolved SOB:stable appears at baseline, missed HD -cont volume removal with HD -s/p thoracentesis recent admission with symptomatic improvement -volume removal with HD as tolerates ASD: -s/p MVR/TVR due to trans-septal puncture -Evaluated at [facility] for closure after occular TIA, deemed not a candidate for closure (Dr. Washington and Dr. Mc): ongoing cocaine use, poor compliance and concomitant valve dz -cont ASA 81mg daily -no sig change on recent echo PAF:NSR currently -Cont Toprol, not candidate for full AC due to poor compliance, drug use -HR control -cont ASA 81mg daily NSVT:during prior admissions as well as this one -h/o non-obs CAD and normal LV systolic function -cont Toprol as BP tolerates -Keep K and Mg wnl
[2017-11-27] MEDS: FOLIC ACID 1 MG TABLET (FP) PO SCH (09:23)
[2017-11-27] MEDS: SEVELAMER CARBONATE 800 MG TAB (FP) PO SCH ×3 (09:23→17:08)
[2017-11-27] MEDS: HEPARIN NA (PORCINE) 5,000 UNITS/ML 1ML VIAL SQ SCH ×2 (09:23→21:32)
[2017-11-27] MEDS: ASPIRIN 81 MG CHEWABLE TABLETS PO SCH (09:23)
[2017-11-27] MEDS: TAMSULOSIN HCL 0.4 MG CAP.ER.24H (FP) PO SCH (09:24)
[2017-11-27] MEDS: metoPROLOL SUCCINATE 25 MG TAB.SR.24H (FP) PO SCH (09:25)
[2017-11-27] MEDS: MULTIVITAMINS (DAILY MVI) TABLET (FP) PO SCH (09:27)
[2017-11-27 09:37] LABS: MAGNESIUM 2.4 mg/dL (1.8-2.4)
[2017-11-27 09:44] LABS: CREATININE 8.1 mg/dL (0.7-1.3); POTASSIUM 4.7 mmol/L (3.5-5.1)
--- NOTE | 2017-11-27 16:34 | CON.GI ---
Consult Consult Specialty:: GI Reason for Consultation:: Diarrhea - History of Present Illness History of Present Illness: 57year old with history of ESRD on HD, hx. colonic polyps and internal hemorrhoids, most recent colonoscopy done last year, was consulted on for diarrhea for 3 days s/p antibiotic use for dental abscess. patient reports no loose stool today, no abdominal pain, no nausea, no vomiting. - History Source History Provided By: Patient, Medical Record Limitations to Obtaining History: No Limitations - Past Medical History Cardio/Vascular: Yes: CAD, CHF (Chronic diastolic HF, Severe Pulm HTN), HTN, Hyperlipdemia, Mitral Insufficiency (s/p MVR (bio)), Pulmonary Hypertension, Other (Severe Tricuspid regurgitation, Endocarditis s/p TVR/MVR, recurrent bacteremia) Pulmonary: Yes: Asthma, COPD, O2 Dependent (4L), Other (PHTN) Gastrointestinal: Yes: Ascites, Constipation Hepatobiliary: Yes: Hepatitis C Renal/: Yes: Renal Failure, Hemodialysis Psych: Yes: Addictions Musculoskeletal: Yes: Bursitis (left shoulder pain) - Past Surgical History Past Surgical History: Yes: Hernia Repair (11/19) - Alcohol/Substance Use Hx Alcohol Use: No History of Substance Use: reports: Cocaine, Marijuana - Smoking History Smoking history: Current every day smoker Have you smoked in the past 12 months: Yes Aproximately how many cigarettes per day: 3 - Social History Usual Living Arrangement: With Significant Other ADL: Independent 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 History of Recent Travel: No Home Medications - Allergies Allergies/Adverse Reactions: Allergies Allergy/AdvReac Type Severity Reaction Status Date / Time Iodinated Contrast- Oral and Allergy Verified 11/08/17 16:40 IV Dye CONTRAST Allergy Hives Uncoded 11/08/17 16:40 - Home Medications Home Medications: Ambulatory Orders Folic Acid 1 mg PO DAILY 09/11/16 Sevelamer Carbonate [Renvela -] 1,600 mg PO BID 09/11/16 Albuterol Sulfate 0.042% [Ventolin 0.042% (Half-Strength) -] 1 amp NEB TID PRN 04/22/17 Acetaminophen [Tylenol .Regular Strength -] 650 mg PO Q6H PRN tablet 07/20/17 Albuterol 2.5/Ipratropium 0.5 [Duoneb -] 1 amp NEB Q4H PRN amp 07/20/17 Aspirin [ASA -] 81 mg PO DAILY tab.chew 07/20/17 Calcium Acetate [Phoslo -] 667 mg PO TIDCM capsule 07/20/17 Levothyroxine [Synthroid -] 25 mcg PO DAILY@0700 tablet 07/20/17 Oxycodone HCl/Acetaminophen [Percocet 5-325 mg Tablet] 1 - 2 tab PO TID PRN #10 tab MDD 6 08/30/17 Tamsulosin HCl [Flomax -] 0.4 mg PO DAILY@0830 cap.er.24h 09/11/17 Cyclobenzaprine HCl [Flexeril -] 10 mg PO BID tablet 09/25/17 Guaifenesin [Robitussin -] 10 ml PO Q6H PRN cup 09/25/17 Albuterol Sulfate Inhaler - [Ventolin HFA Inhaler -] 1 - 2 inh PO Q4H PRN #1 inhaler 11/13/17 Isosorbide Mononitrate [Isosorbide Mononitrate ER] 30 mg PO ONCE 11/26/17 Midodrine HCl 5 mg PO TID 11/26/17 Family Disease History - Family Disease History Family Disease History: Other: Father ( of kidney failure), Mother (muscle problems), Sister (healthy and living, HTN) Physical Exam-GI Vital Signs: Vital Signs Temperature 98.3 F 11/27/17 14:00 Pulse Rate 92 H 11/27/17 14:00 Respiratory Rate 20 11/27/17 14:00 Blood Pressure 104/46 11/27/17 14:00 O2 Sat by Pulse Oximetry (%) 90 L 11/27/17 08:00 Constitutional: Yes: Well Nourished, No Distress, Calm Eyes: Yes: Conjunctiva Clear HENT: Yes: Atraumatic Cardiovascular: Yes: Regular Rate and Rhythm Respiratory: Yes: Diminished (RLL/RUL) Labs: CBC, BMP 11/26/17 16:30 11/27/17 06:15 INR, PTT INR 1.07 (0.82-1.09) 11/25/17 23:13 Problem List - Problems (1) Positive occult stool blood test Assessment/Plan: R>repeat colonoscopy Code(s): R19.5 - OTHER FECAL ABNORMALITIES (2) IBS (irritable bowel syndrome) Assessment/Plan: with diarrhea, suspect small bowel bacterial overgrowth and pancreatic insufficiency vs C.diff as patient has guaiac positive stool which connoted a structural problem R> flagyl 250mg tid pancrease [id number] with meals low fiber lactose free diet Code(s): K58.9 - IRRITABLE BOWEL SYNDROME WITHOUT DIARRHEA
[2017-11-27] MEDS ORDERED: SODIUM CHLORIDE 250 ML IV PRN (18:06)
--- NOTE | 2017-11-27 18:06 | PN ---
Progress Note (short form) - Note Progress Note: Renal follow up for ESRD on HD Pt seen and examined at the bedside s/p dialysis yesterday, pt requested to come off dialysis earlier then prescribed offered additional dialysis today but refusing no diarrhea today Vital Signs Temperature 98.3 F 11/27/17 14:00 Pulse Rate 92 H 11/27/17 14:00 Respiratory Rate 20 11/27/17 14:00 Blood Pressure 104/46 11/27/17 14:00 O2 Sat by Pulse Oximetry (%) 90 L 11/27/17 08:00 Vital Signs Temperature 98.3 F 11/27/17 14:00 Pulse Rate 92 H 11/27/17 14:00 Respiratory Rate 20 11/27/17 14:00 Blood Pressure 104/46 11/27/17 14:00 O2 Sat by Pulse Oximetry (%) 90 L 11/27/17 08:00 NAD awake and alert RRR, No M/R Dec BS at lung bases soft NT/ND Abd + edema in left leg, no edema in right leg no clubbing or cyanosis CBC, BMP 11/25/17 23:13 11/26/17 00:39 Current Medications Aspirin (Asa -) 81 mg PO DAILY [facility] Last Admin: 11/26/17 09:43 Dose: 81 mg Folic Acid (Folic Acid -) 1 mg PO DAILY [facility] Last Admin: 11/26/17 09:43 Dose: 1 mg Heparin Sodium (Porcine) (Heparin -) 5,000 unit SQ BID [facility] Last Admin: 11/26/17 09:43 Dose: Not Given Sodium Chloride (Normal Saline -) 250 mls @ 3,000 mls/hr IV PRN PRN PRN Reason: Hypotension during Dialysis Stop: 11/27/17 12:01 Sodium Chloride (Normal Saline -) 250 mls @ 3,000 mls/hr IV PRN PRN PRN Reason: Hypotension during Dialysis Stop: 11/27/17 12:46 Insulin Aspart (Novolog Vial Sliding Scale -) 1 vial SQ TIDAC [facility] PRN Reason: Protocol Last Admin: 11/26/17 11:59 Dose: Not Given Multivitamins/Minerals/Vitamin C (Tab-A-Vit -) 1 tab PO DAILY [facility] Last Admin: 11/26/17 09:43 Dose: 1 tab Sevelamer Carbonate (Renvela -) 1,600 mg PO TIDCM [facility] Last Admin: 03/22/18 12:40 Dose: Not Given Tamsulosin HCl (Flomax -) 0.4 mg PO DAILY@0830 [facility] Last Admin: 11/26/17 09:43 Dose: 0.4 mg 57 year old gentleman with PMhx of ESRD on HD, Cardiomyopahty, Chronic Hypotension, ASD, S/p MVR/TVR with recent admission for dental abcess presented with complaints of diarrhea and sob and pt found to have volume overload. #ESRD on HD with volume overload s/p dialysis yesterday refused extra session today renal diet fluid restriction #Diarrhea with recent Abx use GI following #Unilateral leg swelling check Doppler of the LE r/o DVT #Renal Osteodystrophy Trend PHos continue renvela #Dental Abcess off Abx dental evaluation as outpatient Abdirashid Guthrie DO
--- NOTE | 2017-11-27 22:30 | PN ---
Progress Note, Physician - Current Medication List Current Medications: Active Medications Albuterol/Ipratropium (Duoneb -) 1 amp NEB Q6H PRN PRN Reason: ASTHMA Last Admin: 11/27/17 20:05 Dose: 1 amp Aspirin (Asa -) 81 mg PO DAILY [facility] Last Admin: 11/27/17 09:23 Dose: 81 mg Folic Acid (Folic Acid -) 1 mg PO DAILY [facility] Last Admin: 11/27/17 09:23 Dose: 1 mg Guaifenesin (Robitussin -) 5 ml PO Q6H PRN PRN Reason: COUGH Last Admin: 11/27/17 19:38 Dose: 5 ml Heparin Sodium (Porcine) (Heparin -) 5,000 unit SQ BID [facility] Last Admin: 11/27/17 21:32 Dose: Not Given Sodium Chloride (Normal Saline -) 250 mls @ 3,000 mls/hr IV PRN PRN PRN Reason: Hypotension during Dialysis Stop: 11/28/17 18:06 Insulin Aspart (Novolog Vial Sliding Scale -) 1 vial SQ TIDAC [facility] PRN Reason: Protocol Last Admin: 11/27/17 17:08 Dose: Not Given Metoprolol Succinate (Toprol Xl -) 12.5 mg PO DAILY [facility] Last Admin: 11/27/17 09:25 Dose: 12.5 mg Midodrine (Proamatine -) 10 mg PO ONCE ONE Stop: 11/29/17 06:01 Multivitamins/Minerals/Vitamin C (Tab-A-Vit -) 1 tab PO DAILY [facility] Last Admin: 11/27/17 09:27 Dose: 1 tab Sevelamer Carbonate (Renvela -) 1,600 mg PO TIDCM [facility] Last Admin: 11/27/17 17:08 Dose: Not Given Tamsulosin HCl (Flomax -) 0.4 mg PO DAILY@0830 [facility] Last Admin: 11/27/17 09:24 Dose: 0.4 mg - Objective Vital Signs: Vital Signs Temperature 97.7 F 11/27/17 21:00 Pulse Rate 90 11/27/17 21:00 Respiratory Rate 20 11/27/17 21:00 Blood Pressure 131/59 11/27/17 21:00 O2 Sat by Pulse Oximetry (%) 90 L 11/27/17 21:00 Labs: CBC, BMP 11/26/17 16:30 11/27/17 06:15 INR, PTT INR 1.07 (0.82-1.09) 11/25/17 23:13 Problem List - Problems (1) Diarrhea Code(s): R19.7 - DIARRHEA, UNSPECIFIED (2) ESRD on hemodialysis Code(s): N18.6 - END STAGE RENAL DISEASE; Z99.2 - DEPENDENCE ON RENAL DIALYSIS (3) Acute on chronic diastolic (congestive) heart failure Code(s): I50.33 - ACUTE ON CHRONIC DIASTOLIC (CONGESTIVE) HEART FAILURE (4) Hypotension Code(s): I95.9 - HYPOTENSION, UNSPECIFIED (5) Hypothyroidism Code(s): E03.9 - HYPOTHYROIDISM, UNSPECIFIED (6) Anemia in CKD (chronic kidney disease) Code(s): N18.9 - CHRONIC KIDNEY DISEASE, UNSPECIFIED; D63.1 - ANEMIA IN CHRONIC KIDNEY DISEASE (7) COPD (chronic obstructive pulmonary disease) Code(s): J44.9 - CHRONIC OBSTRUCTIVE PULMONARY DISEASE, UNSPECIFIED (8) Elevated troponin I level Code(s): R74.8 - ABNORMAL LEVELS OF OTHER SERUM ENZYMES
[2017-11-28] MEDS: guaiFENesin 200 MG/10 ML 10 ML UNIT-DOSE CUPS PO PRN (05:57)
[2017-11-28] MEDS: INSULIN SLIDING SCALE (NOVOLOG) 1 VIAL SQ SCH ×3 (06:16→16:44)
[2017-11-28] MEDS ORDERED: MIDODRINE HCL 5 MG TABLET PO ONE (06:30)
[2017-11-28] MEDS: TAMSULOSIN HCL 0.4 MG CAP.ER.24H (FP) PO SCH (08:00)
[2017-11-28] MEDS: SEVELAMER CARBONATE 800 MG TAB (FP) PO SCH ×3 (08:00→16:44)
[2017-11-28 08:03] LABS: BASO % 1.8 % (0-2.0); EOS % 5.1 % (0-4.5); HEMOGLOBIN 12.4 GM/dL (11.7-16.9); LYMPH % 9.8 % (8-40); MCH 32.3 pg (25.7-33.7); MCHC 31.8 g/dl (32.0-35.9); MEAN CELL VOLUME 101.6 fl (80-96); MEAN PLT VOLUME 10.2 fl (7.5-11.1); MONO % 9.1 % (3.8-10.2); NEUT % 74.2 % (42.8-82.8); PLATELET COUNT 130 K/MM3 (134-434); RBC 3.84 M/mm3 (4.00-5.60)
--- NOTE | 2017-11-28 09:05 | PN ---
Progress Note, Physician Chief Complaint: receiving HD No new complaints TELE: NSR with VPCs and 3 beat clusters NSVT- chronic - Current Medication List Current Medications: Active Medications Albuterol/Ipratropium (Duoneb -) 1 amp NEB Q6H PRN PRN Reason: ASTHMA Last Admin: 11/27/17 20:05 Dose: 1 amp Aspirin (Asa -) 81 mg PO DAILY [facility] Last Admin: 11/27/17 09:23 Dose: 81 mg Folic Acid (Folic Acid -) 1 mg PO DAILY [facility] Last Admin: 11/27/17 09:23 Dose: 1 mg Guaifenesin (Robitussin -) 5 ml PO Q6H PRN PRN Reason: COUGH Last Admin: 11/28/17 05:57 Dose: 5 ml Heparin Sodium (Porcine) (Heparin -) 5,000 unit SQ BID [facility] Last Admin: 11/27/17 21:32 Dose: Not Given Sodium Chloride (Normal Saline -) 250 mls @ 3,000 mls/hr IV PRN PRN PRN Reason: Hypotension during Dialysis Stop: 11/28/17 18:06 Insulin Aspart (Novolog Vial Sliding Scale -) 1 vial SQ TIDAC [facility] PRN Reason: Protocol Last Admin: 11/28/17 06:16 Dose: Not Given Metoprolol Succinate (Toprol Xl -) 12.5 mg PO DAILY [facility] Last Admin: 11/27/17 09:25 Dose: 12.5 mg Multivitamins/Minerals/Vitamin C (Tab-A-Vit -) 1 tab PO DAILY [facility] Last Admin: 11/27/17 09:27 Dose: 1 tab Sevelamer Carbonate (Renvela -) 1,600 mg PO TIDCM [facility] Last Admin: 11/28/17 08:00 Dose: 1,600 mg Tamsulosin HCl (Flomax -) 0.4 mg PO DAILY@0830 [facility] Last Admin: 11/28/17 08:00 Dose: 0.4 mg - Objective Vital Signs: Vital Signs Temperature 98.8 F 11/28/17 06:55 Pulse Rate 99 H 11/28/17 08:30 Respiratory Rate 18 11/28/17 08:30 Blood Pressure 110/57 11/28/17 08:30 O2 Sat by Pulse Oximetry (%) 90 L 11/27/17 21:00 Constitutional: Yes: No Distress, Calm Cardiovascular: Yes: Regular Rate and Rhythm Respiratory: Yes: Other (chronically decreased breath sounds at bases) Gastrointestinal: Yes: Soft (distended, chronic, nontender) Edema: Yes Edema: LLE: 1+, RLE: 1+ Neurological: Yes: Alert, Oriented Labs: CBC, BMP 11/28/17 07:00 11/27/17 06:15 INR, PTT INR 1.07 (0.82-1.09) 11/25/17 23:13 - ....Imaging EKG: Image Reviewed Assessment/Plan IMP: Dental abscess SOB, Pleural effusions ASD PAF NSVT REC: Diarrhea -as per PMD -C. Diff pending. Dental abscess: -ENT evaluation done last visit, pt needs to see a dentist -Abx as indicated, defer to PMD -outpatient f/up -vascular access procedure has been deferred until dental issue resolved SOB:stable appears at baseline, missed HD -cont volume removal with HD -s/p thoracentesis recent admission with symptomatic improvement -volume removal with HD as tolerates ASD: -s/p MVR/TVR due to trans-septal puncture -Evaluated at [facility] for closure after occular TIA, deemed not a candidate for closure (Dr. Washington and Dr. Mc): ongoing cocaine use, poor compliance and concomitant valve dz -cont ASA 81mg daily -no sig change on recent echo PAF:NSR currently -Cont Toprol, not candidate for full AC due to poor compliance, drug use -HR control -cont ASA 81mg daily NSVT:during prior admissions as well as this one -h/o non-obs CAD and normal LV systolic function -cont Toprol as BP tolerates -Keep K and Mg wnl
[2017-11-28] MEDS: metoPROLOL SUCCINATE 25 MG TAB.SR.24H (FP) PO SCH (11:15)
[2017-11-28] MEDS: HEPARIN NA (PORCINE) 5,000 UNITS/ML 1ML VIAL SQ SCH ×2 (11:15→21:03)
[2017-11-28] MEDS: ASPIRIN 81 MG CHEWABLE TABLETS PO SCH (11:16)
[2017-11-28] MEDS: FOLIC ACID 1 MG TABLET (FP) PO SCH (11:16)
[2017-11-28] MEDS: MULTIVITAMINS (DAILY MVI) TABLET (FP) PO SCH (11:16)
--- NOTE | 2017-11-28 12:21 | PN ---
Progress Note (short form) - Note Progress Note: Renal follow up for ESRD on HD Pt seen and examined at the bedside s/p dialysis this am pt once again terinated Tx at 3 hours tolerated 2.5kg UF Vital Signs Temperature 98.3 F 11/27/17 14:00 Pulse Rate 92 H 11/27/17 14:00 Respiratory Rate 20 11/27/17 14:00 Blood Pressure 104/46 11/27/17 14:00 O2 Sat by Pulse Oximetry (%) 90 L 11/27/17 08:00 Vital Signs Temperature 98.3 F 11/27/17 14:00 Pulse Rate 92 H 11/27/17 14:00 Respiratory Rate 20 11/27/17 14:00 Blood Pressure 104/46 11/27/17 14:00 O2 Sat by Pulse Oximetry (%) 90 L 11/27/17 08:00 NAD awake and alert RRR, No M/R Dec BS at lung bases soft NT/ND Abd + edema in left leg, no edema in right leg no clubbing or cyanosis CBC, BMP 11/28/17 07:00 11/27/17 06:15 Current Medications Albuterol/Ipratropium (Duoneb -) 1 amp NEB Q6H PRN PRN Reason: ASTHMA Last Admin: 11/27/17 20:05 Dose: 1 amp Aspirin (Asa -) 81 mg PO DAILY [facility] Last Admin: 11/28/17 11:16 Dose: 81 mg Folic Acid (Folic Acid -) 1 mg PO DAILY [facility] Last Admin: 11/28/17 11:16 Dose: 1 mg Guaifenesin (Robitussin -) 5 ml PO Q6H PRN PRN Reason: COUGH Last Admin: 11/28/17 05:57 Dose: 5 ml Heparin Sodium (Porcine) (Heparin -) 5,000 unit SQ BID [facility] Last Admin: 11/28/17 11:15 Dose: Not Given Sodium Chloride (Normal Saline -) 250 mls @ 3,000 mls/hr IV PRN PRN PRN Reason: Hypotension during Dialysis Stop: 11/28/17 18:06 Insulin Aspart (Novolog Vial Sliding Scale -) 1 vial SQ TIDAC [facility] PRN Reason: Protocol Last Admin: 11/28/17 11:22 Dose: Not Given Metoprolol Succinate (Toprol Xl -) 12.5 mg PO DAILY [facility] Last Admin: 11/28/17 11:15 Dose: 12.5 mg Multivitamins/Minerals/Vitamin C (Tab-A-Vit -) 1 tab PO DAILY [facility] Last Admin: 11/28/17 11:16 Dose: 1 tab Sevelamer Carbonate (Renvela -) 1,600 mg PO TIDCM [facility] Last Admin: 11/28/17 11:20 Dose: Not Given Tamsulosin HCl (Flomax -) 0.4 mg PO DAILY@0830 [facility] Last Admin: 11/28/17 08:00 Dose: 0.4 mg 57 year old gentleman with PMhx of ESRD on HD, Cardiomyopahty, Chronic Hypotension, ASD, S/p MVR/TVR with recent admission for dental abcess presented with complaints of diarrhea and sob and pt found to have volume overload. #ESRD on HD with volume overload #Diarrhea with recent Abx use #Unilateral leg swelling #Renal Osteodystrophy #Dental Abcess #Abd Pain s/p dialysis today with 2kg UF Continue HD 3x weekly, renal diet C-diff negative but pt now with Abd pain Check Abd X-ray to r/o obstruction (less likely) Doppler negative for DVT Abdirashid Guthrie DO
[2017-11-28] MEDS ORDERED: MAGNESIUM HYDROX 2400MG/30ML ORAL SUSPENSION 30 ML CUP PO PRN (16:19)
--- NOTE | 2017-11-28 18:50 | PN ---
GI Progress Note Subjective: complains of abdominal distention and diarrhea, was given MOM. c diff was negative - Objective Vital Signs: Vital Signs Temperature 97.7 F 11/28/17 15:00 Pulse Rate 89 11/28/17 15:00 Respiratory Rate 18 11/28/17 15:00 Blood Pressure 91/50 11/28/17 15:00 O2 Sat by Pulse Oximetry (%) 90 L 11/28/17 08:00 Constitutional: Well Nourished Eyes: Yes: Conjunctiva Clear HENT: Yes: Atraumatic Neck: Yes: Supple Cardiovascular: Yes: Regular Rate and Rhythm Respiratory: Yes: CTA Bilaterally ...Palpate: Yes: Soft. No: Firm/Rigid, Guarding, Splenomegaly, Tenderness ...Percussion: Yes: Tympanitic Labs: CBC, BMP 11/28/17 07:00 11/27/17 06:15 INR, PTT INR 1.07 (0.82-1.09) 11/25/17 23:13 Problem List - Problems (1) IBS (irritable bowel syndrome) Assessment/Plan: with diarrhea, suspect small bowel bacterial overgrowth and pancreatic insufficiency vs C.diff as patient has guaiac positive stool which connoted a structural problem R> flagyl 250mg tid pancrease [id number] with meals low fiber lactose free diet Code(s): K58.9 - IRRITABLE BOWEL SYNDROME WITHOUT DIARRHEA
[2017-11-28] MEDS: ALBUTEROL SO4 2.5/IPRATROPIUM 0.5 INH SOL 3 ML VIAL.NEB. NEB PRN (20:25)
[2017-11-28] MEDS: LIPASE/PROTEASE/AMYLASE 36,000 UNIT CAPSULE PO SCH (21:03)
[2017-11-28] MEDS: metroNIDAZOLE 250 MG TABLET PO SCH (21:03)
--- NOTE | 2017-11-28 22:13 | PN ---
Progress Note, Physician - Current Medication List Current Medications: Active Medications Albuterol/Ipratropium (Duoneb -) 1 amp NEB Q6H PRN PRN Reason: ASTHMA Last Admin: 11/28/17 20:25 Dose: 1 amp Aspirin (Asa -) 81 mg PO DAILY [facility] Last Admin: 11/28/17 11:16 Dose: 81 mg Folic Acid (Folic Acid -) 1 mg PO DAILY [facility] Last Admin: 11/28/17 11:16 Dose: 1 mg Guaifenesin (Robitussin -) 5 ml PO Q6H PRN PRN Reason: COUGH Last Admin: 11/28/17 05:57 Dose: 5 ml Heparin Sodium (Porcine) (Heparin -) 5,000 unit SQ BID [facility] Last Admin: 11/28/17 21:03 Dose: Not Given Sodium Chloride (Normal Saline -) 250 mls @ 3,000 mls/hr IV PRN PRN PRN Reason: Hypotension during Dialysis Stop: 11/28/17 18:06 Insulin Aspart (Novolog Vial Sliding Scale -) 1 vial SQ TIDAC [facility] PRN Reason: Protocol Last Admin: 11/28/17 16:44 Dose: Not Given Metoprolol Succinate (Toprol Xl -) 12.5 mg PO DAILY [facility] Last Admin: 11/28/17 11:15 Dose: 12.5 mg Metronidazole (Flagyl -) 250 mg PO TID [facility] Last Admin: 11/28/17 21:03 Dose: 250 mg Multivitamins/Minerals/Vitamin C (Tab-A-Vit -) 1 tab PO DAILY [facility] Last Admin: 11/28/17 11:16 Dose: 1 tab Pancrelipase (Creon Dr 36,000 Units Capsule) 1 cap PO TIDCM [facility] Last Admin: 11/28/17 21:03 Dose: 1 cap Sevelamer Carbonate (Renvela -) 1,600 mg PO TIDCM [facility] Last Admin: 11/28/17 16:44 Dose: Not Given Tamsulosin HCl (Flomax -) 0.4 mg PO DAILY@0830 [facility] Last Admin: 11/28/17 08:00 Dose: 0.4 mg - Objective Vital Signs: Vital Signs Temperature 97.7 F 11/28/17 15:00 Pulse Rate 89 11/28/17 15:00 Respiratory Rate 18 11/28/17 15:00 Blood Pressure 91/50 11/28/17 15:00 O2 Sat by Pulse Oximetry (%) 90 L 11/28/17 08:00 Labs: CBC, BMP 11/28/17 07:00 11/27/17 06:15 INR, PTT INR 1.07 (0.82-1.09) 11/25/17 23:13 Problem List - Problems (1) Diarrhea Code(s): R19.7 - DIARRHEA, UNSPECIFIED (2) ESRD on hemodialysis Code(s): N18.6 - END STAGE RENAL DISEASE; Z99.2 - DEPENDENCE ON RENAL DIALYSIS (3) Acute on chronic diastolic (congestive) heart failure Code(s): I50.33 - ACUTE ON CHRONIC DIASTOLIC (CONGESTIVE) HEART FAILURE (4) Hypotension Code(s): I95.9 - HYPOTENSION, UNSPECIFIED (5) Hypothyroidism Code(s): E03.9 - HYPOTHYROIDISM, UNSPECIFIED (6) Anemia in CKD (chronic kidney disease) Code(s): N18.9 - CHRONIC KIDNEY DISEASE, UNSPECIFIED; D63.1 - ANEMIA IN CHRONIC KIDNEY DISEASE (7) COPD (chronic obstructive pulmonary disease) Code(s): J44.9 - CHRONIC OBSTRUCTIVE PULMONARY DISEASE, UNSPECIFIED (8) Elevated troponin I level Code(s): R74.8 - ABNORMAL LEVELS OF OTHER SERUM ENZYMES
[2017-11-29] MEDS: metroNIDAZOLE 250 MG TABLET PO SCH ×3 (06:04→21:59)
[2017-11-29] MEDS: INSULIN SLIDING SCALE (NOVOLOG) 1 VIAL SQ SCH ×3 (06:05→16:59)
--- NOTE | 2017-11-29 07:27 | PN ---
Progress Note, Physician Chief Complaint: no acute distress Seen by GI yesterday started on Abx for his diarrhea History of Present Illness: Tolerated HD yesterday - Current Medication List Current Medications: Active Medications Albuterol/Ipratropium (Duoneb -) 1 amp NEB Q6H PRN PRN Reason: ASTHMA Last Admin: 11/28/17 20:25 Dose: 1 amp Aspirin (Asa -) 81 mg PO DAILY [facility] Last Admin: 11/28/17 11:16 Dose: 81 mg Folic Acid (Folic Acid -) 1 mg PO DAILY [facility] Last Admin: 11/28/17 11:16 Dose: 1 mg Guaifenesin (Robitussin -) 5 ml PO Q6H PRN PRN Reason: COUGH Last Admin: 11/28/17 05:57 Dose: 5 ml Heparin Sodium (Porcine) (Heparin -) 5,000 unit SQ BID [facility] Last Admin: 11/28/17 21:03 Dose: Not Given Sodium Chloride (Normal Saline -) 250 mls @ 3,000 mls/hr IV PRN PRN PRN Reason: Hypotension during Dialysis Stop: 11/28/17 18:06 Insulin Aspart (Novolog Vial Sliding Scale -) 1 vial SQ TIDAC [facility] PRN Reason: Protocol Last Admin: 11/29/17 06:05 Dose: Not Given Metoprolol Succinate (Toprol Xl -) 12.5 mg PO DAILY [facility] Last Admin: 11/28/17 11:15 Dose: 12.5 mg Metronidazole (Flagyl -) 250 mg PO TID [facility] Last Admin: 11/29/17 06:04 Dose: 250 mg Multivitamins/Minerals/Vitamin C (Tab-A-Vit -) 1 tab PO DAILY [facility] Last Admin: 11/28/17 11:16 Dose: 1 tab Pancrelipase (Creon Dr 36,000 Units Capsule) 1 cap PO TIDCM [facility] Last Admin: 11/28/17 21:03 Dose: 1 cap Sevelamer Carbonate (Renvela -) 1,600 mg PO TIDCM [facility] Last Admin: 11/28/17 16:44 Dose: Not Given Tamsulosin HCl (Flomax -) 0.4 mg PO DAILY@0830 [facility] Last Admin: 11/28/17 08:00 Dose: 0.4 mg - Objective Vital Signs: Vital Signs Temperature 97.5 F L 11/28/17 21:00 Pulse Rate 84 11/28/17 21:00 Respiratory Rate 19 11/28/17 21:00 Blood Pressure 95/43 11/28/17 21:00 O2 Sat by Pulse Oximetry (%) 94 L 11/28/17 21:00 Constitutional: Yes: Calm Eyes: Yes: Conjunctiva Clear HENT: Yes: Atraumatic Neck: Yes: Supple Cardiovascular: Yes: Regular Rate and Rhythm Respiratory: Yes: Other (decreased breath sounds at bases) Gastrointestinal: Yes: Soft Edema: No Neurological: Yes: Alert ...Motor Strength: WNL Labs: CBC, BMP 11/28/17 07:00 11/27/17 06:15 INR, PTT INR 1.07 (0.82-1.09) 11/25/17 23:13 Assessment/Plan IMP: Dental abscess SOB, Pleural effusions ASD PAF NSVT REC: Diarrhea -as per PMD -C. Diff negative Dental abscess: -ENT evaluation done last visit, pt needs to see a dentist -Abx as indicated, defer to PMD -outpatient f/up -vascular access procedure has been deferred until dental issue resolved SOB:stable appears at baseline, missed HD -cont volume removal with HD -s/p thoracentesis recent admission with symptomatic improvement -volume removal with HD as tolerates ASD: -s/p MVR/TVR due to trans-septal puncture -Evaluated at [facility] for closure after occular TIA, deemed not a candidate for closure (Dr. Washington and Dr. Mc): ongoing cocaine use, poor compliance and concomitant valve dz -cont ASA 81mg daily -no sig change on recent echo PAF:NSR currently -Cont Toprol, not candidate for full AC due to poor compliance, drug use -HR control -cont ASA 81mg daily NSVT:during prior admissions as well as this one -h/o non-obs CAD and normal LV systolic function -cont Toprol as BP tolerates -Keep K and Mg wnl
[2017-11-29] MEDS: LIPASE/PROTEASE/AMYLASE 36,000 UNIT CAPSULE PO SCH ×3 (08:30→17:22)
[2017-11-29] MEDS: SEVELAMER CARBONATE 800 MG TAB (FP) PO SCH ×3 (08:30→17:22)
[2017-11-29] MEDS: HEPARIN NA (PORCINE) 5,000 UNITS/ML 1ML VIAL SQ SCH ×2 (09:02→21:59)
[2017-11-29] MEDS: FOLIC ACID 1 MG TABLET (FP) PO SCH (09:02)
[2017-11-29] MEDS: ASPIRIN 81 MG CHEWABLE TABLETS PO SCH (09:02)
[2017-11-29] MEDS: TAMSULOSIN HCL 0.4 MG CAP.ER.24H (FP) PO SCH (09:02)
[2017-11-29] MEDS: MULTIVITAMINS (DAILY MVI) TABLET (FP) PO SCH (09:03)
[2017-11-29] MEDS: metoPROLOL SUCCINATE 25 MG TAB.SR.24H (FP) PO SCH (09:03)
--- NOTE | 2017-11-29 22:05 | PN ---
Progress Note, Physician History of Present Illness: Pt c/o diarrhea today - Current Medication List Current Medications: Active Medications Albuterol/Ipratropium (Duoneb -) 1 amp NEB Q6H PRN PRN Reason: ASTHMA Last Admin: 11/28/17 20:25 Dose: 1 amp Aspirin (Asa -) 81 mg PO DAILY [facility] Last Admin: 11/29/17 09:02 Dose: 81 mg Folic Acid (Folic Acid -) 1 mg PO DAILY [facility] Last Admin: 11/29/17 09:02 Dose: 1 mg Guaifenesin (Robitussin -) 5 ml PO Q6H PRN PRN Reason: COUGH Last Admin: 11/28/17 05:57 Dose: 5 ml Heparin Sodium (Porcine) (Heparin -) 5,000 unit SQ BID [facility] Last Admin: 11/29/17 21:59 Dose: Not Given Sodium Chloride (Normal Saline -) 250 mls @ 3,000 mls/hr IV PRN PRN PRN Reason: Hypotension during Dialysis Stop: 11/28/17 18:06 Insulin Aspart (Novolog Vial Sliding Scale -) 1 vial SQ TIDAC [facility] PRN Reason: Protocol Last Admin: 11/29/17 16:59 Dose: Not Given Metoprolol Succinate (Toprol Xl -) 12.5 mg PO DAILY [facility] Last Admin: 11/29/17 09:03 Dose: 12.5 mg Metronidazole (Flagyl -) 250 mg PO TID [facility] Last Admin: 11/29/17 21:59 Dose: Not Given Multivitamins/Minerals/Vitamin C (Tab-A-Vit -) 1 tab PO DAILY [facility] Last Admin: 11/29/17 09:03 Dose: 1 tab Pancrelipase (Creon Dr 36,000 Units Capsule) 1 cap PO TIDCM [facility] Last Admin: 11/29/17 17:22 Dose: Not Given Sevelamer Carbonate (Renvela -) 1,600 mg PO TIDCM [facility] Last Admin: 11/29/17 17:22 Dose: Not Given Tamsulosin HCl (Flomax -) 0.4 mg PO DAILY@0830 [facility] Last Admin: 11/29/17 09:02 Dose: 0.4 mg - Objective Vital Signs: Vital Signs Temperature 97.4 F L 11/29/17 13:52 Pulse Rate 86 11/29/17 13:52 Respiratory Rate 18 11/29/17 13:52 Blood Pressure 118/59 11/29/17 13:52 O2 Sat by Pulse Oximetry (%) 96 11/29/17 09:00 HENT: Yes: WNL Neck: Yes: WNL, Supple Cardiovascular: Yes: WNL, Regular Rate and Rhythm Respiratory: Yes: WNL, Regular, CTA Bilaterally Gastrointestinal: Yes: WNL, Normal Bowel Sounds, Soft Labs: CBC, BMP 11/28/17 07:00 11/27/17 06:15 INR, PTT INR 1.07 (0.82-1.09) 11/25/17 23:13 Problem List - Problems (1) Diarrhea Assessment/Plan: Pt had been on antibxs due to dental abscess Stool studies were negative for C Diff Pt started on po flagyl by GI Possible dc planning Code(s): R19.7 - DIARRHEA, UNSPECIFIED (2) ESRD on hemodialysis Code(s): N18.6 - END STAGE RENAL DISEASE; Z99.2 - DEPENDENCE ON RENAL DIALYSIS (3) Acute on chronic diastolic (congestive) heart failure Code(s): I50.33 - ACUTE ON CHRONIC DIASTOLIC (CONGESTIVE) HEART FAILURE (4) Hypotension Code(s): I95.9 - HYPOTENSION, UNSPECIFIED (5) Hypothyroidism Code(s): E03.9 - HYPOTHYROIDISM, UNSPECIFIED (6) Anemia in CKD (chronic kidney disease) Code(s): N18.9 - CHRONIC KIDNEY DISEASE, UNSPECIFIED; D63.1 - ANEMIA IN CHRONIC KIDNEY DISEASE (7) COPD (chronic obstructive pulmonary disease) Code(s): J44.9 - CHRONIC OBSTRUCTIVE PULMONARY DISEASE, UNSPECIFIED (8) Elevated troponin I level Code(s): R74.8 - ABNORMAL LEVELS OF OTHER SERUM ENZYMES
[2017-11-29] MEDS: ALBUTEROL SO4 2.5/IPRATROPIUM 0.5 INH SOL 3 ML VIAL.NEB. NEB PRN (22:40)
[2017-11-30] MEDS: metroNIDAZOLE 250 MG TABLET PO SCH ×3 (06:17→21:35)
[2017-11-30] MEDS: INSULIN SLIDING SCALE (NOVOLOG) 1 VIAL SQ SCH ×3 (06:17→16:57)
[2017-11-30] MEDS: LIPASE/PROTEASE/AMYLASE 36,000 UNIT CAPSULE PO SCH ×3 (08:15→18:01)
[2017-11-30] MEDS: SEVELAMER CARBONATE 800 MG TAB (FP) PO SCH ×3 (08:15→18:01)
[2017-11-30] MEDS: MULTIVITAMINS (DAILY MVI) TABLET (FP) PO SCH (10:59)
[2017-11-30] MEDS: HEPARIN NA (PORCINE) 5,000 UNITS/ML 1ML VIAL SQ SCH ×2 (10:59→21:34)
[2017-11-30] MEDS: metoPROLOL SUCCINATE 25 MG TAB.SR.24H (FP) PO SCH (10:59)
[2017-11-30] MEDS: TAMSULOSIN HCL 0.4 MG CAP.ER.24H (FP) PO SCH (10:59)
[2017-11-30] MEDS: FOLIC ACID 1 MG TABLET (FP) PO SCH (11:00)
[2017-11-30] MEDS: ASPIRIN 81 MG CHEWABLE TABLETS PO SCH (11:00)
[2017-11-30] MEDS ORDERED: PT OWN MED DRAWER 7, Y5N ONE ×2 (12:02→17:31)
--- NOTE | 2017-11-30 17:06 | PN ---
Progress Note, Physician History of Present Illness: patient denies abdominal pain, unable to continue flagyl 2/2 to inducing diarrhea, reports less events s/p discontinuing flagyl. Patient requesting regular diet not diabetic diet. no nausea, no vomiting, no abdominal tenderness , improving diarrhea. - Current Medication List Current Medications: Active Medications Albuterol/Ipratropium (Duoneb -) 1 amp NEB Q6H PRN PRN Reason: ASTHMA Last Admin: 11/29/17 22:40 Dose: 1 amp Aspirin (Asa -) 81 mg PO DAILY [facility] Last Admin: 11/30/17 11:00 Dose: 81 mg Folic Acid (Folic Acid -) 1 mg PO DAILY [facility] Last Admin: 11/30/17 11:00 Dose: 1 mg Guaifenesin (Robitussin -) 5 ml PO Q6H PRN PRN Reason: COUGH Last Admin: 11/28/17 05:57 Dose: 5 ml Heparin Sodium (Porcine) (Heparin -) 5,000 unit SQ BID [facility] Last Admin: 11/30/17 10:59 Dose: Not Given Sodium Chloride (Normal Saline -) 250 mls @ 3,000 mls/hr IV PRN PRN PRN Reason: Hypotension during Dialysis Stop: 11/28/17 18:06 Insulin Aspart (Novolog Vial Sliding Scale -) 1 vial SQ TIDAC [facility] PRN Reason: Protocol Last Admin: 11/30/17 16:57 Dose: Not Given Metoprolol Succinate (Toprol Xl -) 12.5 mg PO DAILY [facility] Last Admin: 11/30/17 10:59 Dose: 12.5 mg Metronidazole (Flagyl -) 250 mg PO TID [facility] Last Admin: 11/30/17 13:01 Dose: 250 mg Multivitamins/Minerals/Vitamin C (Tab-A-Vit -) 1 tab PO DAILY [facility] Last Admin: 11/30/17 10:59 Dose: 1 tab Pancrelipase (Creon Dr 36,000 Units Capsule) 1 cap PO TIDCM [facility] Last Admin: 11/30/17 13:00 Dose: 1 cap Sevelamer Carbonate (Renvela -) 1,600 mg PO TIDCM [facility] Last Admin: 11/30/17 13:01 Dose: 1,600 mg Tamsulosin HCl (Flomax -) 0.4 mg PO DAILY@0830 [facility] Last Admin: 11/30/17 10:59 Dose: 0.4 mg - Objective Vital Signs: Vital Signs Temperature 97.7 F 11/30/17 15:47 Pulse Rate 91 H 11/30/17 15:47 Respiratory Rate 22 11/30/17 15:47 Blood Pressure 135/78 11/30/17 15:47 O2 Sat by Pulse Oximetry (%) 96 11/30/17 09:00 Constitutional: Yes: Well Nourished, No Distress Eyes: Yes: Conjunctiva Clear HENT: Yes: Atraumatic Cardiovascular: Yes: Regular Rate and Rhythm Gastrointestinal: Yes: Normal Bowel Sounds, Soft. No: Distention, Rectal Bleeding, Tenderness, Tenderness, Epigastrium, Tenderness, Rebound, Vomiting Labs: CBC, BMP 11/28/17 07:00 11/27/17 06:15 INR, PTT INR 1.07 (0.82-1.09) 11/25/17 23:13 Problem List - Problems (1) Positive occult stool blood test Code(s): R19.5 - OTHER FECAL ABNORMALITIES (2) IBS (irritable bowel syndrome) Assessment/Plan: with diarrhea, suspect small bowel bacterial overgrowth and pancreatic insufficiency vs C.diff as patient has guaiac positive stool R> d/c if requested by patient. pancrease [id number] with meals encourage low fiber lactose free diet Code(s): K58.9 - IRRITABLE BOWEL SYNDROME WITHOUT DIARRHEA
[2017-11-30] MEDS ORDERED: SODIUM CHLORIDE 250 ML IV PRN (18:22)
--- NOTE | 2017-11-30 18:22 | PN ---
Progress Note (short form) - Note Progress Note: Renal follow up for ESRD on HD Pt seen and examined at the bedside awake and alert refusing oral abx b/c of dry mouth no cp, sob, N/V/D last dialysis was Thursday Vital Signs Temperature 97.7 F 11/30/17 15:47 Pulse Rate 91 H 11/30/17 15:47 Respiratory Rate 22 11/30/17 15:47 Blood Pressure 135/78 11/30/17 15:47 O2 Sat by Pulse Oximetry (%) 96 11/30/17 09:00 Intake & Output 11/27/17 11/28/17 11/29/17 11/30/17 23:59 23:59 23:59 23:59 Intake Total 1030 900 580 500 Balance 1030 900 580 500 Weight 73.482 kg 69.763 kg NAD awake and alert RRR, No M/R Dec BS at lung bases soft NT/ND Abd + edema in left leg, no edema in right leg no clubbing or cyanosis CBC, BMP 11/28/17 07:00 11/27/17 06:15 Current Medications Albuterol/Ipratropium (Duoneb -) 1 amp NEB Q6H PRN PRN Reason: ASTHMA Last Admin: 11/29/17 22:40 Dose: 1 amp Aspirin (Asa -) 81 mg PO DAILY [facility] Last Admin: 11/30/17 11:00 Dose: 81 mg Folic Acid (Folic Acid -) 1 mg PO DAILY [facility] Last Admin: 11/30/17 11:00 Dose: 1 mg Guaifenesin (Robitussin -) 5 ml PO Q6H PRN PRN Reason: COUGH Last Admin: 11/28/17 05:57 Dose: 5 ml Heparin Sodium (Porcine) (Heparin -) 5,000 unit SQ BID [facility] Last Admin: 11/30/17 10:59 Dose: Not Given Sodium Chloride (Normal Saline -) 250 mls @ 3,000 mls/hr IV PRN PRN PRN Reason: Hypotension during Dialysis Stop: 11/28/17 18:06 Insulin Aspart (Novolog Vial Sliding Scale -) 1 vial SQ TIDAC [facility] PRN Reason: Protocol Last Admin: 11/30/17 16:57 Dose: Not Given Metoprolol Succinate (Toprol Xl -) 12.5 mg PO DAILY [facility] Last Admin: 11/30/17 10:59 Dose: 12.5 mg Metronidazole (Flagyl -) 250 mg PO TID [facility] Last Admin: 11/30/17 13:01 Dose: 250 mg Multivitamins/Minerals/Vitamin C (Tab-A-Vit -) 1 tab PO DAILY [facility] Last Admin: 11/30/17 10:59 Dose: 1 tab Pancrelipase (Creon Dr 36,000 Units Capsule) 1 cap PO TIDCM [facility] Last Admin: 11/30/17 18:01 Dose: 1 cap Sevelamer Carbonate (Renvela -) 1,600 mg PO TIDCM [facility] Last Admin: 11/30/17 18:01 Dose: 1,600 mg Tamsulosin HCl (Flomax -) 0.4 mg PO DAILY@0830 [facility] Last Admin: 11/30/17 10:59 Dose: 0.4 mg 57 year old gentleman with PMhx of ESRD on HD, Cardiomyopahty, Chronic Hypotension, ASD, S/p MVR/TVR with recent admission for dental abcess presented with complaints of diarrhea and sob and pt found to have volume overload. #ESRD on HD with volume overload #Diarrhea with recent Abx use #Renal Osteodystrophy #Dental Abcess no acute indication for dialysis today next treatment planned for tomorrow with UF as tolerated continue renal diet dose all meds for intermittent HD Abdirashid Guthrie DO
--- NOTE | 2017-11-30 19:38 | PN ---
Progress Note, Physician History of Present Illness: No new complaint - Current Medication List Current Medications: Active Medications Albuterol/Ipratropium (Duoneb -) 1 amp NEB Q6H PRN PRN Reason: ASTHMA Last Admin: 11/29/17 22:40 Dose: 1 amp Aspirin (Asa -) 81 mg PO DAILY [facility] Last Admin: 11/30/17 11:00 Dose: 81 mg Folic Acid (Folic Acid -) 1 mg PO DAILY [facility] Last Admin: 11/30/17 11:00 Dose: 1 mg Guaifenesin (Robitussin -) 5 ml PO Q6H PRN PRN Reason: COUGH Last Admin: 11/28/17 05:57 Dose: 5 ml Heparin Sodium (Porcine) (Heparin -) 5,000 unit SQ BID [facility] Last Admin: 11/30/17 10:59 Dose: Not Given Sodium Chloride (Normal Saline -) 250 mls @ 3,000 mls/hr IV PRN PRN PRN Reason: Hypotension during Dialysis Stop: 12/01/17 18:22 Insulin Aspart (Novolog Vial Sliding Scale -) 1 vial SQ TIDAC [facility] PRN Reason: Protocol Last Admin: 11/30/17 16:57 Dose: Not Given Metoprolol Succinate (Toprol Xl -) 12.5 mg PO DAILY [facility] Last Admin: 11/30/17 10:59 Dose: 12.5 mg Metronidazole (Flagyl -) 250 mg PO TID [facility] Last Admin: 11/30/17 13:01 Dose: 250 mg Multivitamins/Minerals/Vitamin C (Tab-A-Vit -) 1 tab PO DAILY [facility] Last Admin: 11/30/17 10:59 Dose: 1 tab Pancrelipase (Creon Dr 36,000 Units Capsule) 1 cap PO TIDCM [facility] Last Admin: 11/30/17 18:01 Dose: 1 cap Sevelamer Carbonate (Renvela -) 1,600 mg PO TIDCM [facility] Last Admin: 11/30/17 18:01 Dose: 1,600 mg Tamsulosin HCl (Flomax -) 0.4 mg PO DAILY@0830 [facility] Last Admin: 11/30/17 10:59 Dose: 0.4 mg - Objective Vital Signs: Vital Signs Temperature 97.7 F 11/30/17 15:47 Pulse Rate 91 H 11/30/17 15:47 Respiratory Rate 22 11/30/17 15:47 Blood Pressure 135/78 11/30/17 15:47 O2 Sat by Pulse Oximetry (%) 96 11/30/17 09:00 HENT: Yes: WNL Neck: Yes: WNL, Supple Cardiovascular: Yes: WNL, Regular Rate and Rhythm Respiratory: Yes: WNL, Regular, CTA Bilaterally Gastrointestinal: Yes: WNL, Normal Bowel Sounds, Soft Labs: CBC, BMP 11/28/17 07:00 11/27/17 06:15 INR, PTT INR 1.07 (0.82-1.09) 11/25/17 23:13 Problem List - Problems (1) Diarrhea Assessment/Plan: Pt had been on antibxs due to dental abscess Stool studies were negative for C Diff Pt started on po flagyl by GI Possible dc planning on THU Spoke to pt about dc planning and he said he would not be able to go home after dialysis tomorrow but would leave on thu Code(s): R19.7 - DIARRHEA, UNSPECIFIED (2) ESRD on hemodialysis Assessment/Plan: Hemodialysis as per renal Code(s): N18.6 - END STAGE RENAL DISEASE; Z99.2 - DEPENDENCE ON RENAL DIALYSIS (3) Acute on chronic diastolic (congestive) heart failure Code(s): I50.33 - ACUTE ON CHRONIC DIASTOLIC (CONGESTIVE) HEART FAILURE (4) Hypotension Code(s): I95.9 - HYPOTENSION, UNSPECIFIED (5) Hypothyroidism Code(s): E03.9 - HYPOTHYROIDISM, UNSPECIFIED (6) Anemia in CKD (chronic kidney disease) Code(s): N18.9 - CHRONIC KIDNEY DISEASE, UNSPECIFIED; D63.1 - ANEMIA IN CHRONIC KIDNEY DISEASE (7) COPD (chronic obstructive pulmonary disease) Code(s): J44.9 - CHRONIC OBSTRUCTIVE PULMONARY DISEASE, UNSPECIFIED (8) Elevated troponin I level Code(s): R74.8 - ABNORMAL LEVELS OF OTHER SERUM ENZYMES
[2017-11-30] MEDS: ALBUTEROL SO4 2.5/IPRATROPIUM 0.5 INH SOL 3 ML VIAL.NEB. NEB PRN (20:29)
[2017-12-01] MEDS: metroNIDAZOLE 250 MG TABLET PO SCH ×3 (06:32→22:28)
[2017-12-01] MEDS: INSULIN SLIDING SCALE (NOVOLOG) 1 VIAL SQ SCH ×3 (06:34→16:03)
[2017-12-01] MEDS ORDERED: PT OWN MED DRAWER 7, Y5N ONE ×4 (08:32→17:32)
[2017-12-01] MEDS: SEVELAMER CARBONATE 800 MG TAB (FP) PO SCH ×3 (08:34→17:28)
[2017-12-01] MEDS: LIPASE/PROTEASE/AMYLASE 36,000 UNIT CAPSULE PO SCH ×3 (08:36→17:29)
[2017-12-01] MEDS: TAMSULOSIN HCL 0.4 MG CAP.ER.24H (FP) PO SCH (08:36)
[2017-12-01 11:53] LABS: BASO % 1.5 % (0-2.0); EOS % 3.4 % (0-4.5); HEMATOCRIT 40.1 % (35.4-49); HEMOGLOBIN 12.8 GM/dL (11.7-16.9); LYMPH % 9.2 % (8-40); MCH 32.1 pg (25.7-33.7); MCHC 31.8 g/dl (32.0-35.9); MEAN CELL VOLUME 100.9 fl (80-96); MEAN PLT VOLUME 10.3 fl (7.5-11.1); NEUT % 77.9 % (42.8-82.8); PLATELET COUNT 156 K/MM3 (134-434); RBC 3.98 M/mm3 (4.00-5.60); RDW 18.6 % (11.9-15.9); WHITE BLOOD COUNT 4.7 K/mm3 (4.0-10.0)
[2017-12-01 12:15] LABS: ALBUMIN 1.4 g/dl (3.4-5.0); ANION GAP 8 (8-16); BILIRUBIN,TOTAL 0.3 mg/dL (0.2-1.0); BLOOD UREA NITROGEN 46 mg/dL (7-18); CALCIUM 7.5 mg/dL (8.5-10.1); CHLORIDE 107 mmol/L (98-107); CO2 28 mmol/L (21-32); GLUCOSE,RANDOM 95 mg/dL (74-106); SGOT/AST 22 U/L (15-37); SGPT/ALT 25 U/L (12-78); SODIUM 143 mmol/L (136-145)
[2017-12-01 12:20] LABS: ALK PHOS 73 U/L (45-117)
[2017-12-01 12:23] LABS: CREATININE 8.9 mg/dL (0.7-1.3)
--- NOTE | 2017-12-01 14:07 | PN ---
Progress Note (short form) - Note Progress Note: Renal follow up for ESRD on HD Pt seen and examined at the bedside s/p dialysis this am had 2.5L uF pt w/o any acute complaints no further diarrhea Vital Signs Temperature 97.5 F L 12/01/17 11:08 Pulse Rate 94 H 12/01/17 13:30 Respiratory Rate 18 12/01/17 13:30 Blood Pressure 90/49 12/01/17 13:30 O2 Sat by Pulse Oximetry (%) 92 L 12/01/17 11:08 Intake & Output 11/28/17 11/29/17 11/30/17 12/01/17 23:59 23:59 23:59 23:59 Intake Total 900 580 900 Balance 900 580 900 Weight 69.763 kg 72.348 kg NAD awake and alert RRR, No M/R Dec BS at lung bases soft NT/ND Abd + edema in left leg, no edema in right leg no clubbing or cyanosis CBC, BMP 12/01/17 11:00 12/01/17 11:00 Current Medications Albuterol/Ipratropium (Duoneb -) 1 amp NEB Q6H PRN PRN Reason: ASTHMA Last Admin: 11/30/17 20:29 Dose: 1 amp Aspirin (Asa -) 81 mg PO DAILY [facility] Last Admin: 11/30/17 11:00 Dose: 81 mg Folic Acid (Folic Acid -) 1 mg PO DAILY [facility] Last Admin: 11/30/17 11:00 Dose: 1 mg Guaifenesin (Robitussin -) 5 ml PO Q6H PRN PRN Reason: COUGH Last Admin: 11/28/17 05:57 Dose: 5 ml Heparin Sodium (Porcine) (Heparin -) 5,000 unit SQ BID [facility] Last Admin: 11/30/17 21:34 Dose: Not Given Sodium Chloride (Normal Saline -) 250 mls @ 3,000 mls/hr IV PRN PRN PRN Reason: Hypotension during Dialysis Stop: 12/01/17 18:22 Insulin Aspart (Novolog Vial Sliding Scale -) 1 vial SQ TIDAC [facility] PRN Reason: Protocol Last Admin: 12/01/17 06:34 Dose: Not Given Metoprolol Succinate (Toprol Xl -) 12.5 mg PO DAILY [facility] Last Admin: 11/30/17 10:59 Dose: 12.5 mg Metronidazole (Flagyl -) 250 mg PO TID [facility] Last Admin: 12/01/17 06:32 Dose: Not Given Multivitamins/Minerals/Vitamin C (Tab-A-Vit -) 1 tab PO DAILY [facility] Last Admin: 11/30/17 10:59 Dose: 1 tab Pancrelipase (Creon Dr 36,000 Units Capsule) 1 cap PO TIDCM [facility] Last Admin: 12/01/17 08:36 Dose: Not Given Sevelamer Carbonate (Renvela -) 1,600 mg PO TIDCM [facility] Last Admin: 12/01/17 08:34 Dose: 1,600 mg Tamsulosin HCl (Flomax -) 0.4 mg PO DAILY@0830 [facility] Last Admin: 12/01/17 08:36 Dose: 0.4 mg 57 year old gentleman with PMhx of ESRD on HD, Cardiomyopahty, Chronic Hypotension, ASD, S/p MVR/TVR with recent admission for dental abcess presented with complaints of diarrhea and sob and pt found to have volume overload. #ESRD on HD with volume overload #Diarrhea with recent Abx use #Renal Osteodystrophy #Dental Abcess tolerated dialysis well UF 2.5L will continue HD 3x weekly continue fluid and salt restriction diarrhea resolving to follow up with dentist as outpatient Abdirashid Guthrie DO
[2017-12-01] MEDS: ASPIRIN 81 MG CHEWABLE TABLETS PO SCH (14:17)
[2017-12-01] MEDS: MULTIVITAMINS (DAILY MVI) TABLET (FP) PO SCH (14:17)
[2017-12-01] MEDS: metoPROLOL SUCCINATE 25 MG TAB.SR.24H (FP) PO SCH (14:17)
[2017-12-01] MEDS: FOLIC ACID 1 MG TABLET (FP) PO SCH (14:17)
[2017-12-01] MEDS: HEPARIN NA (PORCINE) 5,000 UNITS/ML 1ML VIAL SQ SCH ×2 (14:17→22:28)
[2017-12-01 14:28] LABS: PHOSPHOROUS 4.7 mg/dL (2.5-4.9)
[2017-12-01] MEDS: ALBUTEROL SO4 2.5/IPRATROPIUM 0.5 INH SOL 3 ML VIAL.NEB. NEB PRN (17:50)
--- NOTE | 2017-12-02 01:07 | PN ---
Progress Note, Physician - Current Medication List Current Medications: Active Medications Aspirin (Asa -) 81 mg PO DAILY [facility] [place] Last Admin: 12/01/17 14:17 Dose: Not Given Folic Acid (Folic Acid -) 1 mg PO DAILY [facility] [place] Last Admin: 12/01/17 14:17 Dose: Not Given Guaifenesin (Robitussin -) 5 ml PO Q6H PRN PRN Reason: COUGH Last Admin: 11/28/17 05:57 Dose: 5 ml Heparin Sodium (Porcine) (Heparin -) 5,000 unit SQ BID [facility] [place] Last Admin: 12/01/17 22:28 Dose: Not Given Insulin Aspart (Novolog Vial Sliding Scale -) 1 vial SQ TIDAC [facility] [place] PRN Reason: Protocol Last Admin: 12/01/17 16:03 Dose: Not Given Metoprolol Succinate (Toprol Xl -) 12.5 mg PO DAILY [facility] [place] Last Admin: 12/01/17 14:17 Dose: Not Given Metronidazole (Flagyl -) 250 mg PO TID [facility] [place] Last Admin: 12/01/17 22:28 Dose: Not Given Multivitamins/Minerals/Vitamin C (Tab-A-Vit -) 1 tab PO DAILY [facility] [place] Last Admin: 12/01/17 14:17 Dose: Not Given Pancrelipase (Creon Dr 36,000 Units Capsule) 1 cap PO TIDCM [facility] [place] Last Admin: 12/01/17 17:29 Dose: 1 cap Sevelamer Carbonate (Renvela -) 1,600 mg PO TIDCM [facility] [place] Last Admin: 12/01/17 17:28 Dose: 1,600 mg Tamsulosin HCl (Flomax -) 0.4 mg PO DAILY@0830 [facility] Last Admin: 12/01/17 08:36 Dose: 0.4 mg - Objective Vital Signs: Vital Signs Temperature 97.8 F 12/01/17 23:00 Pulse Rate 112 H 12/01/17 23:00 Respiratory Rate 20 12/01/17 23:00 Blood Pressure 119/94 12/01/17 23:00 O2 Sat by Pulse Oximetry (%) 92 L 12/01/17 21:00 Labs: CBC, BMP 12/01/17 11:00 12/01/17 11:00 INR, PTT INR 1.07 (0.82-1.09) 11/25/17 23:13 Problem List - Problems (1) Diarrhea Code(s): R19.7 - DIARRHEA, UNSPECIFIED (2) ESRD on hemodialysis Code(s): N18.6 - END STAGE RENAL DISEASE; Z99.2 - DEPENDENCE ON RENAL DIALYSIS (3) Acute on chronic diastolic (congestive) heart failure Code(s): I50.33 - ACUTE ON CHRONIC DIASTOLIC (CONGESTIVE) HEART FAILURE (4) Hypotension Code(s): I95.9 - HYPOTENSION, UNSPECIFIED (5) Hypothyroidism Code(s): E03.9 - HYPOTHYROIDISM, UNSPECIFIED (6) Anemia in CKD (chronic kidney disease) Code(s): N18.9 - CHRONIC KIDNEY DISEASE, UNSPECIFIED; D63.1 - ANEMIA IN CHRONIC KIDNEY DISEASE (7) COPD (chronic obstructive pulmonary disease) Code(s): J44.9 - CHRONIC OBSTRUCTIVE PULMONARY DISEASE, UNSPECIFIED (8) Elevated troponin I level Code(s): R74.8 - ABNORMAL LEVELS OF OTHER SERUM ENZYMES
[2017-12-02] MEDS: metroNIDAZOLE 250 MG TABLET PO SCH (06:32)
[2017-12-02] MEDS: INSULIN SLIDING SCALE (NOVOLOG) 1 VIAL SQ SCH ×2 (06:32→11:25)
[2017-12-02] MEDS ORDERED: PT OWN MED DRAWER 7, Y5N ONE (08:32)
[2017-12-02] MEDS: TAMSULOSIN HCL 0.4 MG CAP.ER.24H (FP) PO SCH (08:37)
[2017-12-02] MEDS: LIPASE/PROTEASE/AMYLASE 36,000 UNIT CAPSULE PO SCH ×2 (08:37→12:39)
[2017-12-02] MEDS: SEVELAMER CARBONATE 800 MG TAB (FP) PO SCH ×2 (08:37→12:39)
[2017-12-02] MEDS: HEPARIN NA (PORCINE) 5,000 UNITS/ML 1ML VIAL SQ SCH (11:25)
[2017-12-02] MEDS: ASPIRIN 81 MG CHEWABLE TABLETS PO SCH (11:25)
[2017-12-02] MEDS: FOLIC ACID 1 MG TABLET (FP) PO SCH (11:25)
[2017-12-02] MEDS: MULTIVITAMINS (DAILY MVI) TABLET (FP) PO SCH (11:25)
[2017-12-02] MEDS: metoPROLOL SUCCINATE 25 MG TAB.SR.24H (FP) PO SCH (11:25)
[2017-12-02 11:32] VITALS: BP 120/75; PULSE 86; TEMP 97.6
--- NOTE | 2017-12-03 02:06 | HP ---
Admitting History and Physical - Past Medical History Cardiovascular: Yes: CAD, CHF (Chronic diastolic HF, Severe Pulm HTN), HTN, Hyperlipdemia, Mitral Insufficiency (s/p MVR (bio)), Pulmonary Hypertension, Other (Severe Tricuspid regurgitation, Endocarditis s/p TVR/MVR, recurrent bacteremia) Pulmonary: Yes: Asthma, COPD, O2 Dependent (4L), Other (PHTN) Gastrointestinal: Yes: Ascites, Constipation Hepatobiliary: Yes: Hepatitis C Renal/: Yes: Renal Failure, Hemodialysis Heme/Onc: Yes: Anemia Psych: Yes: Addictions Musculoskeletal: Yes: Bursitis (left shoulder pain) - Past Surgical History Past Surgical History: Yes: Hernia Repair (11/19) - Smoking History Smoking history: Current every day smoker Have you smoked in the past 12 months: Yes Aproximately how many cigarettes per day: 3 - Alcohol/Substance Use Hx Alcohol Use: No History of Substance Use: reports: Cocaine, Marijuana - Social History ADL: Independent 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 [employer] History of Recent Travel: No Home Medications - Allergies Allergies/Adverse Reactions: Allergies Allergy/AdvReac Type Severity Reaction Status Date / Time Iodinated Contrast- Oral and Allergy Verified 11/08/17 16:40 IV Dye CONTRAST Allergy Hives Uncoded 11/08/17 16:40 - Home Medications Home Medications: Ambulatory Orders Folic Acid 1 mg PO DAILY 09/11/16 Sevelamer Carbonate [Renvela -] 1,600 mg PO BID 09/11/16 Albuterol Sulfate 0.042% [Ventolin 0.042% (Half-Strength) -] 1 amp NEB TID PRN 04/22/17 Acetaminophen [Tylenol .Regular Strength -] 650 mg PO Q6H PRN tablet 07/20/17 Albuterol 2.5/Ipratropium 0.5 [Duoneb -] 1 amp NEB Q4H PRN amp 07/20/17 Aspirin [ASA -] 81 mg PO DAILY tab.chew 07/20/17 Calcium Acetate [Phoslo -] 667 mg PO TIDCM capsule 07/20/17 Levothyroxine [Synthroid -] 25 mcg PO DAILY@0700 tablet 07/20/17 Oxycodone HCl/Acetaminophen [Percocet 5-325 mg Tablet] 1 - 2 tab PO TID PRN #10 tab MDD 6 08/30/17 Tamsulosin HCl [Flomax -] 0.4 mg PO DAILY@0830 cap.er.24h 09/11/17 Cyclobenzaprine HCl [Flexeril -] 10 mg PO BID tablet 09/25/17 Albuterol Sulfate Inhaler - [Ventolin HFA Inhaler -] 1 - 2 inh PO Q4H PRN #1 inhaler 11/13/17 Isosorbide Mononitrate [Isosorbide Mononitrate ER] 30 mg PO ONCE 11/26/17 Midodrine HCl 5 mg PO TID 11/26/17 Aspirin [ASA -] 81 mg PO DAILY tab.chew 12/02/17 Folic Acid - 1 mg PO DAILY tablet 12/02/17 Lipase/Protease/Amylase [Ava Esquivel 36,000 Units Capsule] 1 cap PO TIDCM #90 capsule. 12/02/17 Metoprolol Succinate [Toprol XL -] 12.5 mg PO DAILY tab.sr.24h 12/02/17 Multivitamins [Multivit ([facility] Formul[facility])] 1 tab PO DAILY tab 12/02/17 Sevelamer Carbonate [Renvela -] 1,600 mg PO TIDCM tab 12/02/17 Tamsulosin HCl [Flomax -] 0.4 mg PO DAILY@0830 cap.er.24h 12/02/17 metroNIDAZOLE [Flagyl -] 250 mg PO TID #42 tablet 12/02/17 Family Disease History - Family Disease History Family Disease History: Other: Father ( of kidney failure), Mother (muscle problems), Sister (healthy and living, HTN) Physical Examination Vital Signs: Vital Signs Temperature 97.6 F 12/02/17 09:00 Pulse Rate 86 12/02/17 09:00 Respiratory Rate 20 12/02/17 09:00 Blood Pressure 120/75 12/02/17 09:00 O2 Sat by Pulse Oximetry (%) 93 L 12/02/17 09:00 Labs: CBC, BMP 12/01/17 11:00 12/01/17 11:00 Problem List - Problems (1) Diarrhea Code(s): R19.7 - DIARRHEA, UNSPECIFIED (2) ESRD on hemodialysis Code(s): N18.6 - END STAGE RENAL DISEASE; Z99.2 - DEPENDENCE ON RENAL DIALYSIS (3) Acute on chronic diastolic (congestive) heart failure Code(s): I50.33 - ACUTE ON CHRONIC DIASTOLIC (CONGESTIVE) HEART FAILURE (4) Hypotension Code(s): I95.9 - HYPOTENSION, UNSPECIFIED (5) Hypothyroidism Code(s): E03.9 - HYPOTHYROIDISM, UNSPECIFIED (6) Anemia in CKD (chronic kidney disease) Code(s): N18.9 - CHRONIC KIDNEY DISEASE, UNSPECIFIED; D63.1 - ANEMIA IN CHRONIC KIDNEY DISEASE (7) COPD (chronic obstructive pulmonary disease) Code(s): J44.9 - CHRONIC OBSTRUCTIVE PULMONARY DISEASE, UNSPECIFIED (8) Elevated troponin I level Code(s): R74.8 - ABNORMAL LEVELS OF OTHER SERUM ENZYMES
== END 2017-12-02 14:37 | disposition home health service (06) | DRG 194 ==
LOC: JER 20:22 → J4W 11-26 01:39 → J6S 11-29 14:50
PROVIDERS: ADMIT Internal Medicine; ATTEND Internal Medicine
PROC: 5A1D70Z Performance of Urinary Filtration, Intermittent, Less than 6 Hours Per Day (ICD-10-PCS; principal; 2017-11-26)
PROC: 5A1D70Z Performance of Urinary Filtration, Intermittent, Less than 6 Hours Per Day (ICD-10-PCS; 2017-11-28)
PROC: 5A1D70Z Performance of Urinary Filtration, Intermittent, Less than 6 Hours Per Day (ICD-10-PCS; 2017-12-01)
DX: I13.2 Hypertensive heart and chronic kidney disease with heart failure and with stage 5 chronic kidney disease, or end stage renal disease (principal); J44.9 Chronic obstructive pulmonary disease, unspecified; E78.5 Hyperlipidemia, unspecified; E11.9 Type 2 diabetes mellitus without complications; I34.0 Nonrheumatic mitral (valve) insufficiency; I25.10 Atherosclerotic heart disease of native coronary artery without angina pectoris; N40.0 Benign prostatic hyperplasia without lower urinary tract symptoms; I27.20 Pulmonary hypertension, unspecified; M71.9 Bursopathy, unspecified; R19.7 Diarrhea, unspecified; D63.1 Anemia in chronic kidney disease; E87.70 Fluid overload, unspecified; I48.91 Unspecified atrial fibrillation; I47.2 Ventricular tachycardia; F17.200 Nicotine dependence, unspecified, uncomplicated; K58.9 Irritable bowel syndrome, unspecified; I24.8 Other forms of acute ischemic heart disease; I95.89 Other hypotension; I42.8 Other cardiomyopathies; R19.5 Other fecal abnormalities; N25.0 Renal osteodystrophy; Q21.1 Atrial septal defect; E03.9 Hypothyroidism, unspecified; R74.8 Abnormal levels of other serum enzymes; N18.6 End stage renal disease; I50.33 Acute on chronic diastolic (congestive) heart failure; K04.7 Periapical abscess without sinus; Z99.2 Dependence on renal dialysis; Z99.81 Dependence on supplemental oxygen; Z95.4 Presence of other heart-valve replacement; Z91.14 Patient's other noncompliance with medication regimen; Z86.19 Personal history of other infectious and parasitic diseases
CPT/HCPCS: 36415; 36600; 71045-TC-FY; 74018-TC-FY; 80048; 80053; 82272; 82375; 82550; 82553; 82803; 82962; 83050; 83735; 83880; 84100; 84443; 84484; 85025; 85610; 87324; 87449; 93005; 93010; 93970-TC; 94640; 99283-25; J1644

== ENCOUNTER 2017-12-30 11:29 | Emergency (ER) | payer OTHER ==
[2017-12-30 11:47] VITALS: BMI 18.2
[2017-12-30] MEDS ORDERED: ALBUTEROL SO4 2.5/IPRATROPIUM 0.5 INH SOL 3 ML VIAL.NEB. NEB ONE (12:13)
--- NOTE | 2017-12-30 12:20 | PDOC ---
History of Present Illness - General Chief Complaint: Shortness of Breath Stated Complaint: SOB, ABNORMAL EKG Time Seen by Provider: 12/30/17 12:04 History Source: Patient Exam Limitations: No Limitations - History of Present Illness Initial Comments: This is a 57 YOM with h/o CHF, COPD, asthma, severe pulmonary HTN, ESRD on HD T/ Th/Sat without missed tx recently, paroxysmal A-fib on ASA only (unable to adhere to AC regimen), CAD, severe tricuspid regurgitation, endocarditis s/p TVR /MVR, recurrent bacteremia, HCV with ascites, and hypothyroidism, who presents c /o SOB, hypoxia, and diffuse anterior chest discomfort. The patient provides a truncated history of symptomology as he is initially able to speak in only 1-3 word sentences. He notes that yesterday his dialysis was cut short because his blood pressure dropped to 77 systolic. Past History - Past Medical History Allergies/Adverse Reactions: Allergies Allergy/AdvReac Type Severity Reaction Status Date / Time Iodinated Contrast- Oral and Allergy Verified 12/30/17 11:38 IV Dye CONTRAST Allergy Hives Uncoded 12/30/17 11:38 Home Medications: Ambulatory Orders Folic Acid 1 mg PO DAILY 09/11/16 Sevelamer Carbonate [Renvela -] 1,600 mg PO BID 09/11/16 Albuterol Sulfate 0.042% [Ventolin 0.042% (Half-Strength) -] 1 amp NEB TID PRN 04/22/17 Acetaminophen [Tylenol .Regular Strength -] 650 mg PO Q6H PRN tablet 07/20/17 Albuterol 2.5/Ipratropium 0.5 [Duoneb -] 1 amp NEB Q4H PRN amp 07/20/17 Aspirin [ASA -] 81 mg PO DAILY tab.chew 07/20/17 Calcium Acetate [Phoslo -] 667 mg PO TIDCM capsule 07/20/17 Levothyroxine [Synthroid -] 25 mcg PO DAILY@0700 tablet 07/20/17 Oxycodone HCl/Acetaminophen [Percocet 5-325 mg Tablet] 1 - 2 tab PO TID PRN #10 tab MDD 6 08/30/17 Tamsulosin HCl [Flomax -] 0.4 mg PO DAILY@0830 cap.er.24h 09/11/17 Cyclobenzaprine HCl [Flexeril -] 10 mg PO BID tablet 09/25/17 Albuterol Sulfate Inhaler - [Ventolin HFA Inhaler -] 1 - 2 inh PO Q4H PRN #1 inhaler 11/13/17 Isosorbide Mononitrate [Isosorbide Mononitrate ER] 30 mg PO ONCE 11/26/17 Midodrine HCl 5 mg PO TID 11/26/17 Aspirin [ASA -] 81 mg PO DAILY tab.chew 12/02/17 Folic Acid - 1 mg PO DAILY tablet 12/02/17 Lipase/Protease/Amylase [Ava Esquivel 36,000 Units Capsule] 1 cap PO TIDCM #90 capsule. 12/02/17 Metoprolol Succinate [Toprol XL -] 12.5 mg PO DAILY tab.sr.24h 12/02/17 Multivitamins [Multivit ([facility] Formul[facility])] 1 tab PO DAILY tab 12/02/17 Sevelamer Carbonate [Renvela -] 1,600 mg PO TIDCM tab 12/02/17 Tamsulosin HCl [Flomax -] 0.4 mg PO DAILY@0830 cap.er.24h 12/02/17 metroNIDAZOLE [Flagyl -] 250 mg PO TID #42 tablet 12/02/17 Anemia: Yes Asthma: Yes Cancer: No Cardiac Disorders: Yes (2X VALVE REPLACEMENT,endocarditis) CVA: No COPD: Yes CHF: No Dementia: No Diabetes: Yes Dialysis: Yes () GI Disorders: Yes Disorders: Yes (ENLARGED PROSTATE) HTN: (LOW BP) Hypercholesterolemia: Yes Liver Disease: No Seizures: No Thyroid Disease: No - Surgical History Abdominal Surgery: No Appendectomy: No Cardiac Surgery: Yes (2 VALVES REPLACED 04/2015) Cholecystectomy: No Lung Surgery: Yes (h/o MRSA pleural tissue) Neurologic Surgery: No Orthopedic Surgery: No - Immunization History Immunization Up to Date: No - Suicide/Smoking/Psychosocial Hx Smoking Status: Yes Smoking History: Current every day smoker Have you smoked in the past 12 months: No Number of Cigarettes Smoked Daily: 3 Information on smoking cessation initiated: No 'Breaking Loose' booklet given: 11/26/17 Hx Alcohol Use: No Drug/Substance Use Hx: No Substance Use Type: None Hx Substance Use Treatment: No *Physical Exam - Vital Signs Last Vital Signs Temp Pulse Resp BP Pulse Ox 97.4 F L 91 H 22 111/61 83 L 12/30/17 11:39 12/30/17 11:39 12/30/17 11:39 12/30/17 11:39 12/30/17 11:39 Heart Score/ECG Review - History History: Slightly suspicious - Electrocardiogram EKG: Non specific repolarization disturbance - Age Age: 45-65 - Risk Factors Risk Factors Heart Score: Yes Hx Hypercholesterolemia, Yes Hx Hypertension, Yes Smoking History Based on the list above the patient has:: >/=3 risk factors or Hx atherosclerotic disease - Troponin Troponin: 1-3x normal limit - Score Heart Score - Total: 5 ED Treatment Course - LABORATORY CBC & Chemistry Diagram: 12/30/17 13:24 12/30/17 13:24 Medical Decision Making - Medical Decision Making 57 YOM with h/o CHF and ESRD who p/w SOB, hypoxia, A-fib with RVR. Initial Vital Signs Temp Pulse Resp BP Pulse Ox 97.4 F L 91 H 22 111/61 83 L 12/30/17 11:39 12/30/17 11:39 12/30/17 11:39 12/30/17 11:39 12/30/17 11:39 Exam: Poor air movement worse at lung bases, irregularly irregular tachycardia, 2+ pitting edema to chest wall, RUE distal cyanosis and cap refill >6 sec DDX IBNLT: CHF, pulmonary edema, other fluid overload effects from ESRD, COPD, asthma, other lung disease, A-fib with RVR (possibly provoked by thyroid issues) , PNA/bronchitis, anemia, ACS, pericarditis, tamponade, AD, PE, PTX, other infection (e.g. dental abscess causing sepsis), etc. On bedside US patient has apical and basilar B-lines, small right and large left pleural effusion, no pericardial effusion. W/U ordered: CBCD CMP Mg Phos Troponin CK CKMB BNP Blood Gas UA UCx EKG CXR BCx Lactate TX ordered: SoluMedrol, Mg 2 gm, DuoNeb continuous, O2, BiPAP, positioned with head of bed to 45 degrees as cannot tolerate 90 or flat. Most likely CHF exacerbation/pleural effusion as patient has hx suspicious for volume overload. Also likely component of COPD exacerbation as patient is moving poor air and is wheezing after DuoNebs. Unlikely PNA/bronchitis as patient has no SOB, cough, fever, known exposures, h/ o recurrent PNA, etc. Unlikely acute worsening of anemia as patient denies any rectal bleeding or other source of bleeding recently. Unlikely pericarditis as discomfort is not relieved sitting forward, patient afebrile, no friction rub. Unlikely tamponade as patient has no triad of hypotension/JVD/muffled heart sounds. Unlikely AD as no ripping/tearing sensation, BP not concerningly elevated, radial pulses equal bilaterally. Unlikely PE as patient has no leg swelling, h/o immobility recently, severe chest pain, is known to struggle w/o hypoxia chronically. Unlikely pneumothorax as VS are wnl, patient has no recent h/o trauma or falls, breath sounds equal. EKG: A-fib with RVR rate of 110 CXR: large chronic left pleural effusion unchanged Laboratory Tests 12/30/17 12/30/17 12/30/17 13:05 13:05 13:09 WBC RBC Hgb Hct MCV MCH MCHC RDW Plt Count MPV Neutrophils % Lymphocytes % Monocytes % Eosinophils % Basophils % PT with INR INR PTT (Actin FS) Anticoagulation Therapy No Result Required. Puncture Site No Result Required. ABG pH 7.50 H ABG pCO2 at Pt Temp 27.8 L ABG pO2 at Pt Temp 51.8 L ABG HCO3 21.5 L ABG O2 Sat (Measured) 85.3 L ABG O2 Content 15.4 ABG Base Excess -0.1 Ez Test No Result Required. Carboxyhemoglobin 3.1 H Methemoglobin 1.1 O2 Delivery Device No Result Required. Oxygen Flow Rate No Result Required. Vent Mode No Result Required. Vent Rate No Result Required. Mechanical Rate No Result Required. Pressure Support Vent No Result Required. Sodium Potassium Chloride Carbon Dioxide Anion Gap BUN Creatinine Creat Clearance w eGFR Random Glucose Lactic Acid 2.5 H* Calcium Total Bilirubin AST ALT Alkaline Phosphatase Creatine Kinase Creatine Kinase Index CK-MB (CK-2) Troponin I B-Natriuretic Peptide Total Protein Albumin Blood Type O POSITIVE Antibody Screen Negative 12/30/17 12/30/17 12/30/17 13:24 13:24 13:24 WBC 4.8 RBC 4.13 Hgb 13.6 Hct 41.6 MCV 100.8 H MCH 32.8 MCHC 32.6 RDW 18.3 H Plt Count 176 MPV 9.8 Neutrophils % 81.9 Lymphocytes % 7.4 L Monocytes % 7.4 Eosinophils % 2.0 Basophils % 1.3 PT with INR 14.00 H INR 1.24 H PTT (Actin FS) 30.8 Anticoagulation Therapy Puncture Site ABG pH ABG pCO2 at Pt Temp ABG pO2 at Pt Temp ABG HCO3 ABG O2 Sat (Measured) ABG O2 Content ABG Base Excess Ez Test Carboxyhemoglobin Methemoglobin O2 Delivery Device Oxygen Flow Rate Vent Mode Vent Rate Mechanical Rate Pressure Support Vent Sodium 144 Potassium 3.8 D Chloride 107 Carbon Dioxide 22 D Anion Gap 15 BUN 47 H Creatinine 8.4 H* Creat Clearance w eGFR 6.65 Random Glucose 129 H D Lactic Acid Calcium 8.7 Total Bilirubin 0.4 D AST 21 ALT 25 Alkaline Phosphatase 87 Creatine Kinase 199 Creatine Kinase Index 4.2 CK-MB (CK-2) 8.490 H Troponin I 0.14 H B-Natriuretic Peptide 67644.29 H Total Protein 5.4 L D Albumin 1.9 L D Blood Type Antibody Screen Repeat VS: Vital Signs Temperature 98.0 F 12/30/17 12:22 Pulse Rate 75 12/30/17 16:07 Respiratory Rate 20 12/30/17 15:22 Blood Pressure 101/60 12/30/17 15:22 O2 Sat by Pulse Oximetry (%) 95 12/30/17 16:07 Reassessment: Improved air movement, patient appears much more comfortable, on BiPAP currently The patient is unsafe for discharge at this time. They require further hospital observation, workup, and treatment. They have reportedly active dental abscess and need OMFS consultation. The patient's provider team is at [facility] and I spoke with Dr. Wan Ba who accepts transfer. Spoke with [facility] transfer mesa; they are awaiting open patient bed and will call when available. They will arrange transport when bed is available. 12/30/17 18:20 Bed has become available at [facility] and the ambulance unit will arrive in 1- [address] San who recommends 1,000 U/hr heparin without bolus to start. Spoke with transfer center who note number for RN to call to give report is [phone]. Order placed for 1,000 U/hour heparin. *DC/Admit/Observation/Transfer Diagnosis at time of Disposition: Pleural effusion, ESRD on hemodialysis, COPD exacerbation, Atrial fibrillation with RVR, Elevated troponin I level, Elevated lactic acid level, Cyanotic fingertip, Dental abscess CHF exacerbation Qualifiers: Heart failure type: unspecified Qualified Code(s): I50.9 - Heart failure, unspecified - Discharge Dispostion Disposition: TRANSFER ACUTE CARE/OTHER HOSP Condition at time of disposition: Guarded Admit: Yes - Referrals - Patient Instructions - Post Discharge Activity - Transfer to Acute Care Facility Receiving Facility: [facility] Accepting Physician:: Wan Ba
[2017-12-30] MEDS ORDERED: MAGNESIUM SULF 50% (8.12 MEQ/2 ML-1 GM VIAL) IVPB ONE (12:24)
[2017-12-30] MEDS: ALBUTEROL SO4 2.5/IPRATROPIUM 0.5 INH SOL 3 ML VIAL.NEB. NEB SCH ×4 (12:30→13:15)
[2017-12-30 12:50] VITALS: TEMP 98
[2017-12-30] MEDS ORDERED: methylPREDNISolone NA SUCC 125 MG/2 ML VIAL ONE (12:50)
[2017-12-30] MEDS ORDERED: MAGNESIUM SULF 50% (8.12 MEQ/2 ML-1 GM VIAL) ONE (12:50)
--- NOTE | 2017-12-30 13:21 | PDOC ---
Attending Attestation - HPI HPI: 12/30/17 13:29 The patient is a 57 year old male, with a significant past medical history of HTN, HLD, NIDDM, asthma, COPD,CHF, MV insufficiency s/p MVR ( bio), non occlusive CAD, ESRD ( Dialysis ,, ), and recent admission for SOB and elevated troponin, BIBA for evaluation of shortness of breath since this morning. Patients last dialysis treatment was yesterday, which he states he was unable to complete because his blood pressure dropped too low. He denies any chest pain, diaphoresis, palpitations, or lower extremity edema. No recent fever or chills. - Medical Decision Making 12/30/17 13:29 Documentation prepared by Ciarra Lao, acting as medical assisting program director for Bharath Abraham MD. <Ciarra Lao - Last Filed: 12/30/17 14:32> - Resident Resident Name: Megan Mcclain - ED Attending Attestation I have performed the following: I have examined & evaluated the patient, The case was reviewed & discussed with the resident, I agree w/resident's findings & plan, Exceptions are as noted - Physicial Exam PE: 12/30/17 16:24 Initial evaluation, patient awake and alert, frail-appearing, tachypneic and dyspneic, speaking in short phrases only; hypoxemic normocephalic, atraumatic EOMI, conjunctiva are pink, no scleral icterus + Significant soft tissue swelling of the left side of face primarily localized to the left mandible with poor dentition + JVD Severely decreased air entry bilaterally with decreased breath sounds at the left base No accessory muscle use and no retractions No lower extremity edema; AV fistulas noted to the left forearm with a palpable thrill + Right hand evaluation reveals digital cyanosis with delayed cap refill but a strong radial pulse - Medical Decision Making 12/30/17 16:26 57-year-old male with multiple comorbidities, history of end-stage renal disease on hemodialysis who presented with severe shortness of breath. Patient had incomplete dialysis the day prior. I suspect acute COPD exacerbation worsened by fluid overload and persistent moderate-sized left-sided pleural effusion. Patient immediately placed on BiPAP. Solu-Medrol and magnesium sulfate as been administered in addition to continuous nebulizer therapy. EKG revealed atrial fibrillation with right axis deviation consistent with previous history of paroxysmal A. fib. Chest x-ray revealed persistent moderate-sized left-sided pleural effusion. First set of cardiac enzymes reveals indeterminate troponin and elevated BNP. There is no evidence of leukocytosis. ABG reveals pO2 of 51 on FiO2 of 60%. right hand evaluation revealed distal cyanosis with the delayed cap refill but a strong radial and brachial pulses. left hand evaluation revealed normal cap refill, no evidence of cyanosis and a strong radial pulse. Bedside ultrasound revealed no evidence of pericardial effusion. Patient's condition is stabilized, he is comfortable and is requesting to eat. Patient has been accepted for transfer to [facility] for further cardiac evaluation as well as almost pass evaluation for a suspected dental abscess. 12/30/17 16:32 <Bharath Abraham - Last Filed: 12/30/17 16:33>
[2017-12-30 13:29] LABS: ARTERIAL BLD GAS O2 SATURATION 85.3 % (90-98.9); ARTERIAL BLOOD GAS BASE EXCESS -0.1 meq/l (-2-2); ARTERIAL BLOOD GAS PCO2 27.8 mmHg (35-45); ARTERIAL BLOOD GAS PO2 51.8 mmHg (80-100); CARBOXYHEMOGLOBIN 3.1 gm% (0.5-2.0)
[2017-12-30 13:34] LABS: BASO % 1.3 % (0-2.0); HEMATOCRIT 41.6 % (35.4-49); HEMOGLOBIN 13.6 GM/dL (11.7-16.9); LYMPH % 7.4 % (8-40); MCH 32.8 pg (25.7-33.7); MCHC 32.6 g/dl (32.0-35.9); MEAN CELL VOLUME 100.8 fl (80-96); MEAN PLT VOLUME 9.8 fl (7.5-11.1); MONO % 7.4 % (3.8-10.2); NEUT % 81.9 % (42.8-82.8); PLATELET COUNT 176 K/MM3 (134-434); RBC 4.13 M/mm3 (4.00-5.60); RDW 18.3 % (11.9-15.9); WHITE BLOOD COUNT 4.8 K/mm3 (4.0-10.0)
[2017-12-30 13:47] LABS: INR 1.24 (0.82-1.09)
[2017-12-30 13:49] LABS: ACTIVATED PTT 30.8 SECONDS (26.9-34.4)
[2017-12-30 14:04] LABS: ALBUMIN 1.9 g/dl (3.4-5.0); ANION GAP 15 (8-16); BILIRUBIN,TOTAL 0.4 mg/dL (0.2-1.0); BLOOD UREA NITROGEN 47 mg/dL (7-18); CALCIUM 8.7 mg/dL (8.5-10.1); CHLORIDE 107 mmol/L (98-107); CO2 22 mmol/L (21-32); GLUCOSE,RANDOM 129 mg/dL (74-106); POTASSIUM 3.8 mmol/L (3.5-5.1); SGOT/AST 21 U/L (15-37); SGPT/ALT 25 U/L (12-78); SODIUM 144 mmol/L (136-145); TOT PROT 5.4 g/dl (6.4-8.2)
[2017-12-30 14:19] LABS: ALK PHOS 87 U/L (45-117); N-TERMINAL BNP 39373.29 pg/ml (5-125)
[2017-12-30 14:22] LABS: CREATININE 8.4 mg/dL (0.7-1.3)
--- NOTE | 2017-12-30 15:33 | EKG ---
Test Reason : Blood Pressure : / mmHG Vent. Rate : 110 BPM Atrial Rate : 147 BPM P-R Int : 000 ms QRS Dur : 066 ms QT Int : 302 ms P-R-T Axes : 000 125 136 degrees QTc Int : 408 ms ATRIAL FIBRILLATION WITH RAPID VENTRICULAR RESPONSE WITH PREMATURE VENTRICULAR OR ABERRANTLY CONDUCTED COMPLEXES RIGHT AXIS DEVIATION LOW VOLTAGE QRS CANNOT RULE OUT ANTEROSEPTAL INFARCT (CITED ON OR BEFORE 19-AUG-2017) ABNORMAL ECG WHEN COMPARED WITH ECG OF 25-NOV-2017 22:38, ATRIAL FIBRILLATION HAS REPLACED SINUS RHYTHM T WAVE INVERSION NO LONGER EVIDENT IN ANTERIOR LEADS Confirmed by MENDY CRAIN MD ([id number]) on 12/30/2017 3:32:58 PM Referred By: Confirmed By:MENDY CRAIN MD
[2017-12-30] MEDS ORDERED: HEPARIN - 25,000 UNIT in SODIUM CHLORIDE 495 ML IV SCH (19:00)
[2017-12-30] MEDS ORDERED: methylPREDNISolone NA SUCC 125 MG/2 ML VIAL IVPUSH ONE (19:22)
[2017-12-30] MEDS ORDERED: HEPARIN INFUSION - 25,000 UNITS/500 ML INFUS.BAG IVPB ONE (19:45)
[2017-12-30 20:12] VITALS: BP 103/85; PULSE 72
== END 2017-12-30 20:16 | disposition short-term general hospital (02) ==
LOC: JER 11:29 → UNDOADMIN 15:04 → JERBED 15:04 → JER 20:16
PROC: 3E0F7GC Introduction of Other Therapeutic Substance into Respiratory Tract, Via Natural or Artificial Opening (ICD-10-PCS; principal; 2017-12-30)
PROC: 3E033GC Introduction of Other Therapeutic Substance into Peripheral Vein, Percutaneous Approach (ICD-10-PCS; 2017-12-30)
DX: J44.1 Chronic obstructive pulmonary disease with (acute) exacerbation (principal); J45.998 Other asthma; F17.210 Nicotine dependence, cigarettes, uncomplicated; J90 Pleural effusion, not elsewhere classified; I13.2 Hypertensive heart and chronic kidney disease with heart failure and with stage 5 chronic kidney disease, or end stage renal disease; E11.22 Type 2 diabetes mellitus with diabetic chronic kidney disease; N18.6 End stage renal disease; I50.9 Heart failure, unspecified; N17.8 Other acute kidney failure; Z99.2 Dependence on renal dialysis; I48.0 Paroxysmal atrial fibrillation; Z79.82 Long term (current) use of aspirin; Z95.2 Presence of prosthetic heart valve; E03.9 Hypothyroidism, unspecified; B18.2 Chronic viral hepatitis C; N40.0 Benign prostatic hyperplasia without lower urinary tract symptoms
CPT/HCPCS: 36415; 36600; 71045-TC-FY; 80053; 82375; 82550; 82553; 82803; 83050; 83605; 83880; 84443; 84484; 85025; 85610; 85730; 86850; 86900; 86901; 87040; 93005; 93010; 99285-25; J1644